=== PATIENT | male | born 1945 | race Caucasian/White ===

== ENCOUNTER → 2020-01-19 14:15 | Outpatient (BNV) | payer MEDICARE, MEDICAID, SELFPAY | PROVIDERS: PCP Hospitalist; Visit Provider Internal Medicine Medical Oncology | DX: C61 Malignant neoplasm of prostate (principal) | CPT/HCPCS: 99213; 99214 ==

== ENCOUNTER 2021-11-10 11:49 | Inpatient (IN) | payer MEDICARE, MEDICAID, SELFPAY ==
[2021-11-10] VITALS (7 sets, daily range): BP systolic 91–143; BP diastolic 58–85; PULSE 61–83; RESP 18–30; TEMP 35.3–36.5; O2SAT 92–100; BMI 27.2
--- NOTE | ~2021-11-10 | XR_ITS ---
EXAMINATION: XR ABDOMEN KUB CLINICAL INDICATION: Pre-MRI screening. COMPARISON: KUB done on 09/20/2012. TECHNIQUE: AP view of the abdomen. FINDINGS: No radiopaque metallic foreign body identified except for a Menard's catheter within the bladder. Nonspecific bowel gas pattern is noted. Abnormal appearance of the left lower hemidiaphragm, may represent pleural parenchymal disease. Follow-up chest radiograph may be considered for further full detail evaluation, if clinically XR/XR KUB appropriate. IMPRESSION: No radiopaque metallic foreign body except for Menard's catheter within the bladder.
--- NOTE | ~2021-11-10 | CT_ITS ---
EXAMINATION: CT HEAD WITHOUT CONTRAST CLINICAL INFORMATION: AMS. COMPARISON: CT brain 12/07/2017 TECHNIQUE: Contiguous axial imaging was performed from the skull base to vertex without intravenous administration of contrast. This CT examination was performed using dose optimization techniques as appropriate, variously including the following: *Automated exposure control *Adjustment of mA and/or kV according to patient size (this includes techniques or standardized protocols for targeted exams where dose is matched to indication/reason for exam; i.e. extremities or head) *Use of iterative reconstruction technique DLP: 1150 mGy-cm FINDINGS: There is no evidence of acute intracranial hemorrhage or territorial infarction. No abnormal mass effect or midline shift is seen. Li to white matter differentiation is well preserved. No extra-axial fluid collections are identified. The lateral ventricles are symmetrical but enlarged. The osseous structures and soft tissues are normal. The mastoid air cells and visualized portions of the paranasal sinuses are well aerated. CT/CT head/brain wo con IMPRESSION: No acute intracranial process seen. Age-related cerebral volume loss.
--- NOTE | ~2021-11-10 | XR_ITS ---
EXAMINATION: XR CHEST CLINICAL INFORMATION: Unresponsive patient. COMPARISON: Chest done on 07/15/2019. TECHNIQUE: Frontal view of the chest was obtained. FINDINGS: The patient is rotated. Apparent opacity is noted within the left hemithorax with asymmetric low lung volume. The right lung field is clear. The cardiac mediastinal silhouette outline is not well visualized, not evaluated. XR/XR chest 1V IMPRESSION: Asymmetric low lung volume within the left hemithorax with superimposed apparent opacity at left upper and lower hemithorax. Technically limited study. Repeat radiograph when patient is able is recommended.
--- NOTE | ~2021-11-10 | CT_ITS ---
EXAMINATION: CT chest wo con. CLINICAL INFORMATION: Reason for Exam AMS, SOB COMPARISON: No prior CT scan available for comparison. TECHNIQUE: Multidetector volumetric CT imaging of the chest was done. Axial MIP volume rendering provided. Sagittal and coronal reformatted images were obtained. This CT examination was performed using dose optimization techniques as appropriate, variously including the following: *Automated exposure control *Adjustment of mA and/or kV according to patient size (this includes techniques or standardized protocols for targeted exams where dose is matched to indication/reason for exam; i.e. extremities or head) *Use of iterative reconstruction technique CONTRAST: Noncontrasted study. DLP: 450 mGy-cm FINDINGS: SENIOR MAINFRAME DEVELOPER: LINES/TUBES: Mandarin Teacher reviewed, no lines. LUNGS: Lung parenchyma: There is subsegmental platelike atelectasis left upper lobe and lingula base. There is a prominence of the pulmonary vasculature, probably congestive failure. Mild interstitial opacification probably mild interstitial edema. Lung nodules/masses: No lung mass or suspicious spiculated nodules, there are few scattered tiny nonspecific lung nodular densities measuring up to 3 mm or less. AIRWAYS: Trachea and bronchi are normal. PLEURA: No pleural effusion or pneumothorax. MEDIASTINUM AND KARISSA: No mediastinal, hilar or axillary lymphadenopathy. No mediastinal mass. VESSELS: HEART AND PERICARDIUM: Aneurysmal dilatation of ascending aorta measure up to 4.3 cm. Descending aorta is normal in diameter measuring 2.9 cm. The heart is enlarged. No pericardial effusion. There are coronary calcifications. Pulmonary arteries are normal in size. LOWER NECK, AXILLA: The visualized thyroid gland is unremarkable. No axillary mass or adenopathy. VISUALIZED ABDOMEN: Unremarkable CHEST WALL AND BONES: There is a right breast retroareolar solid soft tissue 2.3 cm, this may require correlation with follow-up diagnostic breast imaging mammogram and ultrasound. The visualized bony thorax is within normal limits. CT/CT chest wo con IMPRESSION: *Cardiomegaly, pulmonary vascular congestion, congestive heart failure, mild interstitial opacifications concerning for mild interstitial edema. *Subsegmental platelike atelectasis left upper lobe and left lingula base. *Soft tissue density 2.3 cm right retroareolar region of the breast, this require further investigation with follow-up DIAGNOSTIC MAMMOGRAM AND ULTRASOUND. *No lung mass or suspicious spiculated nodules, there are few scattered tiny nonspecific lung nodular densities measuring up to 3 mm or less. If patient is high-risk consider correlation with follow-up CT in 12 months. *Coronary calcifications. *Aneurysmal dilatation of ascending aorta 4.3 cm. This also can be followed up by CT scan in 12 months. (Referring physician staff is being called, to be alerted of the above findings and recommendations.) DC Fleischner criteria followed.
--- NOTE | ~2021-11-10 | MR_ITS ---
EXAMINATION: MR BRAIN WITHOUT CONTRAST CLINICAL INFORMATION: Encephalopathy of unclear etiology. COMPARISON: Prior exams including head CT 11/10/2021 and 09/18/2016. TECHNIQUE: Multiplanar, multisequence imaging of the brain was performed without intravenous contrast. FINDINGS: There is no acute infarction, hemorrhage, mass, or extra-axial fluid collection. There is chronic encephalomalacia and gliosis within the right posterior inferior temporal lobe as seen on series 8 image 12/23 likely reflecting sequela of prior remote insult or infarct. Right lateral ventricle is asymmetrically enlarged but appears similar in configuration compared with prior exams. There is progressive brain parenchymal volume loss compared with prior studies. Mild nonspecific T2/FLAIR hyperintensity seen within the cerebral white matter, presumably chronic microangiopathy. The major arterial flow voids appear preserved at the skull base. There are bilateral lens replacements. MR/MR head/brain wo con IMPRESSION: No acute intracranial abnormality. Specifically, no evidence of acute infarction. No mass or hemorrhage is seen. Chronic encephalomalacia and gliosis noted in the right temporal lobe. Background changes of mild brain parenchymal volume loss with progression compared with prior studies.
--- NOTE | 2021-11-10 11:56 | ECG_ITS ---
Test Reason : unresponsive Blood Pressure : / mmHG Vent. Rate : 078 BPM Atrial Rate : 078 BPM P-R Int : 146 ms QRS Dur : 126 ms QT Int : 408 ms P-R-T Axes : 029 -45 -28 degrees QTc Int : 465 ms Normal sinus rhythm Left axis deviation Non-specific intra-ventricular conduction block Nonspecific T wave abnormality Abnormal ECG When compared with ECG of 08-DEC-2017 11:34, No significant change was found Referred By: Christiana Kearns Electronically Signed By:PHILLIP DENNISON
--- NOTE | 2021-11-10 11:58 | ED.AMS ---
HPI - Altered Mental Status General Chief Complaint: General Medical Stated Complaint: UNRESPONSIVE Time Seen by Provider: 11/10/21 11:56 Source: EMS Mode of arrival: EMS History of Present Illness HPI narrative: 76-year-old male brought in by EMS from [facility] who submits complaint of unresponsiveness but states that patient had eaten breakfast this morning, EMS noted that patient had pinpoint pupils and was noted to be on a codeine containing medication in so administered 4 mg of Narcan. They report patient is 95% oxygenation on baseline 3 L of nasal cannula. The facility denies any seizure-like activity. Patient is unable to provide additional information at this time. Related Data Home Medications Medication Instructions Recorded Confirmed acetaminophen 325 mg capsule 650 mg PO Q4H PRN Pain 01/19/20 06/19/21 amlodipine 5 mg tablet 5 mg PO DAILY 01/19/20 06/19/21 aripiprazole 5 mg tablet 5 mg PO DAILY 01/19/20 06/19/21 aspirin 81 mg tablet 81 mg PO DAILY 01/19/20 06/19/21 bicalutamide 50 mg tablet 50 mg PO DAILY 01/19/20 06/19/21 bisacodyl 5 mg rectal suppository 5 mg WV DAILY 01/19/20 06/19/21 codeine 10 mg-guaifenesin 100 mg/5 5 ml PO Q6H PRN Cough 01/19/20 06/19/21 mL oral liquid (Guaifenesin AC) divalproex 500 mg tablet,extended 1,000 mg PO DAILY 01/19/20 06/19/21 release 24 hr doxycycline hyclate 100 mg capsule 100 mg PO BID 01/19/20 06/19/21 furosemide 20 mg tablet (Lasix) 20 mg PO QAM 01/19/20 06/19/21 ibuprofen 200 mg tablet 200 mg PO Q6H PRN Pain 01/19/20 06/19/21 levalbuterol tartrate 45 2 puff inhalation Q4-6H PRN cough 01/19/20 06/19/21 mcg/actuation aerosol inhaler lorazepam 2 mg/mL injection 1 mg sublingual BEDTIME PRN 01/19/20 06/19/21 solution (Ativan) Seizure Activity omeprazole 20 mg capsule,delayed 20 mg PO DAILY 01/19/20 06/19/21 release oxycodone 5 mg capsule 5 mg PO BID PRN Pain 01/19/20 06/19/21 polyvinyl alcohol 1.4 % eye drops 1 drp ophthalmic (eye) DAILY 01/19/20 06/19/21 (Artificial Tears (polyvinyl alcohol)) sennosides 8.6 mg tablet (senna) 8.6 mg PO BEDTIME PRN Constipation 01/19/20 06/19/21 lactulose 10 gram/15 mL oral ml PO 11/10/21 solution metformin 500 mg tablet 1 tab PO BID 11/10/21 11/10/21 Allergies Allergy/AdvReac Type Severity Reaction Status Date / Time tuberculin, purified protein Allergy Unknown UNKNOWN Verified 06/19/21 15:02 deriva [Tuberculin,Purif.Prot.Deriv.] Review of Systems Review of Systems: Yes Unobtainable due to mental condition [facility] Past Medical History Source: nursing notes reviewed Medical History Cervicalgia COPD (chronic obstructive pulmonary disease) Dementia Dysphagia Epilepsy GERD (gastroesophageal reflux disease) Hypertension Muscle weakness (generalized) Schizo affective schizophrenia Spinal stenosis Social History Social History Household Members: Caregiver Housing: Other Housing Other:: [facility] Are you a primary adult daycare coordinator to a significant other at home: No Do you presently have visiting nurse or other home services: Yes Patient Tobacco Use Status: Never used Tobacco Second Hand Smoke Exposure: No Advance Directives: No Advance Directives Information Provided: No service: No Current occupational status: disabled Physical Exam ED Vital Signs: Vital Signs - 24 hr 11/10/21 11:57 11/10/21 12:41 11/10/21 13:11 Temperature 97.7 F Pulse Rate 83 77 74 Respiratory Rate 30 H 21 H 24 H Blood Pressure 93/59 L 91/58 L 111/65 Pulse Oximetry 96 92 100 Oxygen Delivery Method Nasal Cannula Nasal Cannula Nasal Cannula Oxygen Flow Rate 4 4 11/10/21 12:56 11/10/21 15:42 Temperature 95.5 F L Pulse Rate 73 66 Respiratory Rate 25 H 18 Blood Pressure 101/59 L 110/66 Pulse Oximetry 97 99 Oxygen Delivery Method Nasal Cannula Nasal Cannula Oxygen Flow Rate 4 4 BMI result Body Mass Index 27.2 VITAL SIGNS: Reviewed. GENERAL: Chronically ill, in no acute distress. HEAD: Normocephalic/atraumatic EYES: PERRLA, with pinpoint pupils EARS: Ext canals without abnormality NOSE: Nares patent bilateral OROPHARYNX: no oral lesions noted, posterior pharynx clear, dry mucosa NECK: Supple, no adenopathy LUNGS: Poor inspiratory effort, decreased breath sounds bibasilar. SpO2<97> on 4 L nasal cannula CARDIOVASCULAR: Regular rate and rhythm without noted murmurs, no JVD or lower extremity edema. ABDOMEN: Soft, non-tender, non-distended with bowel sounds. : Patient has adult brief in place MUSCULOSKELETAL: No tenderness, deformities, or effusions noted on gross inspection. EXTREMITIES: No cyanosis, clubbing or edema. SKIN: Inspection of the skin reveals no rashes NEUROLOGIC: GCS-7, no posturing noted Course Course Course Narrative: 76-year-old male with history and clinical presentation of unresponsiveness, no recent evaluations [place] [facility] but there are notes reviewed within the system from [facility] Onc regarding prostate cancer. In these notes, it is stated that ?failed trial of radiation therapy... Patient is wheelchair-bound, patient is incontinent of urine, patient currently on Lupron and next dose is November?. Review of all investigations suggestive of medication interactions, patient responded well to Narcan and has otherwise been hemodynamically stable, there were new findings of breast mass which is likely metastatic given underlying prostate cancer. Serial troponins are flat and he was empirically treated for possible aspiration pneumonia although there is no evidence of this presently. Evidence of pulmonary congestion and suspect that this is noncardiac in nature and patient is being treated with Lasix. I discussed this case with the inpatient hospitalist who accepts admission. Reevaluation(s) Reevaluation #1: I spoke with Bethanie Blackmon the court appointed guardian who states she is unsure of the goals of care, lbut jayjay her knowledge the MOLST stands given that the prior guardian, whom she inherited the patient from due to halfway, would have had to go back to court and she knows that had not happened. Time: 12:41 Reevaluation #2: Patient is more easily arousable, GCS-11. Time: 13:12 MDM - Altered Mental Status Lab Data Result diagrams: 11/10/21 12:27 11/10/21 12:27 Labs: Lab Results 11/10/21 11/10/21 11/10/21 Range/Units 12:05 12:27 12:27 WBC 4.4 L (4.8-10.8) X10*3/uL RBC 4.56 L (4.60-5.80) X10*6/uL Hgb 13.7 L (14.0-18.0) g/dl Hct 40.9 L (42.0-52.0) % MCV 89.7 (80.0-98.0) fL MCH 30.0 (27.0-33.0) pg MCHC 33.5 (31.0-36.0) g/dl RDW 15.0 (11.0-16.0) % Plt Count 194 (160-400) X10*3/uL MPV 8.6 L (9.4-12.4) fL Immature Gran % (Auto) 0.2 (0.0-0.4) % Neut % (Auto) 67.5 (45-73) % Lymph % (Auto) 19.0 L (20-40) % [place] % (Auto) 11.5 H (2-11) % Eos % (Auto) 1.6 (0-4) % Baso % (Auto) 0.2 (0-2) % Lymph # (Auto) 0.8 L (1.2-4.9) X10*3/uL [place] # (Auto) 0.5 (0.1-1.2) X10*3/uL Eos # (Auto) 0.1 (0.0-0.4) X10*3/uL Baso # (Auto) 0.0 (0.0-0.2) X10*3/uL Abs Immat Gran (auto) 0.01 (0.00-0.03) X10*3/uL Absolute Neuts (auto) 2.9 (2.0-8.3) x10*3/uL Absolute Nucleated RBC 0.000 (0.0-0.012) X10*3/uL Nucleated RBC % (auto) 0.0 (0.0-0.2) /100WBC PT 11.2 (10.0-13.1) SEC INR 1.0 (0.9-1.1) VBG pH (7.32-7.43) VBG pCO2 mmHg VBG pO2 mmHg VBG HCO3 (22-26) mmol/L VBG O2 Saturation % VBG Base Excess mmol/L Sodium (135-145) mmol/L Potassium (3.3-5.1) mmol/L Chloride (96-108) mmol/L Carbon Dioxide (22-29) mmol/L Anion Gap (12-20) BUN (9-16) mg/dL Creatinine (0.5-1.4) mg/dL Estim Creat Clear Calc Estimated GFR POC Glucose 110 (60-115) mg/dL Random Glucose (60-115) mg/dL Lactic Acid (0.5-2.0) mmol/L Calcium (8.4-10.2) mg/dL Total Bilirubin (0.0-1.0) mg/dL AST (5-37) U/L ALT (0-40) U/L Alkaline Phosphatase (39-117) U/L Troponin I High Sens (<3.5-35.0) ng/L B-Natriuretic Peptide (<100) pg/mL Total Protein (6.5-8.0) g/dL Albumin (3.5-5.0) g/dL Urine Color Urine Appearance Urine pH (5.0-8.0) Ur Specific [place] (1.005-1.025) Urine Protein (NEG-TRACE) MG/DL Urine Glucose (UA) (NEG) MG/DL Urine Ketones (NEG) MG/DL Urine Blood (NEG) Urine Nitrite (NEG) Ur Leukocyte Esterase (NEG) COVID-19 (COLIN) (Negative) COVID-19 Clin Com 11/10/21 11/10/21 11/10/21 Range/Units 12:27 12:27 12:27 WBC (4.8-10.8) X10*3/uL RBC (4.60-5.80) X10*6/uL Hgb (14.0-18.0) g/dl Hct (42.0-52.0) % MCV (80.0-98.0) fL MCH (27.0-33.0) pg MCHC (31.0-36.0) g/dl RDW (11.0-16.0) % Plt Count (160-400) X10*3/uL MPV (9.4-12.4) fL Immature Gran % (Auto) (0.0-0.4) % Neut % (Auto) (45-73) % Lymph % (Auto) (20-40) % [place] % (Auto) (2-11) % Eos % (Auto) (0-4) % Baso % (Auto) (0-2) % Lymph # (Auto) (1.2-4.9) X10*3/uL [place] # (Auto) (0.1-1.2) X10*3/uL Eos # (Auto) (0.0-0.4) X10*3/uL Baso # (Auto) (0.0-0.2) X10*3/uL Abs Immat Gran (auto) (0.00-0.03) X10*3/uL Absolute Neuts (auto) (2.0-8.3) x10*3/uL Absolute Nucleated RBC (0.0-0.012) X10*3/uL Nucleated RBC % (auto) (0.0-0.2) /100WBC PT (10.0-13.1) SEC INR (0.9-1.1) VBG pH (7.32-7.43) VBG pCO2 mmHg VBG pO2 mmHg VBG HCO3 (22-26) mmol/L VBG O2 Saturation % VBG Base Excess mmol/L Sodium 136 (135-145) mmol/L Potassium 3.9 (3.3-5.1) mmol/L Chloride 93 L (96-108) mmol/L Carbon Dioxide 31 H (22-29) mmol/L Anion Gap 16 (12-20) BUN 11 (9-16) mg/dL Creatinine 0.69 (0.5-1.4) mg/dL Estim Creat Clear Calc 99.9 Estimated GFR > 60 POC Glucose (60-115) mg/dL Random Glucose 114 (60-115) mg/dL Lactic Acid 1.9 (0.5-2.0) mmol/L Calcium 9.0 D (8.4-10.2) mg/dL Total Bilirubin 0.3 (0.0-1.0) mg/dL AST 11 (5-37) U/L ALT 18 (0-40) U/L Alkaline Phosphatase 69 D (39-117) U/L Troponin I High Sens 14.2 (<3.5-35.0) ng/L B-Natriuretic Peptide 87 (<100) pg/mL Total Protein 6.2 L (6.5-8.0) g/dL Albumin 3.8 (3.5-5.0) g/dL Urine Color Urine Appearance Urine pH (5.0-8.0) Ur Specific [place] (1.005-1.025) Urine Protein (NEG-TRACE) MG/DL Urine Glucose (UA) (NEG) MG/DL Urine Ketones (NEG) MG/DL Urine Blood (NEG) Urine Nitrite (NEG) Ur Leukocyte Esterase (NEG) COVID-19 (COLIN) (Negative) COVID-19 Clin Com 11/10/21 11/10/21 11/10/21 Range/Units 12:27 12:28 12:29 WBC (4.8-10.8) X10*3/uL RBC (4.60-5.80) X10*6/uL Hgb (14.0-18.0) g/dl Hct (42.0-52.0) % MCV (80.0-98.0) fL MCH (27.0-33.0) pg MCHC (31.0-36.0) g/dl RDW (11.0-16.0) % Plt Count (160-400) X10*3/uL MPV (9.4-12.4) fL Immature Gran % (Auto) (0.0-0.4) % Neut % (Auto) (45-73) % Lymph % (Auto) (20-40) % [place] % (Auto) (2-11) % Eos % (Auto) (0-4) % Baso % (Auto) (0-2) % Lymph # (Auto) (1.2-4.9) X10*3/uL [place] # (Auto) (0.1-1.2) X10*3/uL Eos # (Auto) (0.0-0.4) X10*3/uL Baso # (Auto) (0.0-0.2) X10*3/uL Abs Immat Gran (auto) (0.00-0.03) X10*3/uL Absolute Neuts (auto) (2.0-8.3) x10*3/uL Absolute Nucleated RBC (0.0-0.012) X10*3/uL Nucleated RBC % (auto) (0.0-0.2) /100WBC PT (10.0-13.1) SEC INR (0.9-1.1) VBG pH (7.32-7.43) VBG pCO2 mmHg VBG pO2 mmHg VBG HCO3 (22-26) mmol/L VBG O2 Saturation % VBG Base Excess mmol/L Sodium (135-145) mmol/L Potassium (3.3-5.1) mmol/L Chloride (96-108) mmol/L Carbon Dioxide (22-29) mmol/L Anion Gap (12-20) BUN (9-16) mg/dL Creatinine (0.5-1.4) mg/dL Estim Creat Clear Calc Estimated GFR POC Glucose (60-115) mg/dL Random Glucose (60-115) mg/dL Lactic Acid (0.5-2.0) mmol/L Calcium (8.4-10.2) mg/dL Total Bilirubin (0.0-1.0) mg/dL AST (5-37) U/L ALT (0-40) U/L Alkaline Phosphatase (39-117) U/L Troponin I High Sens Cancelled (<3.5-35.0) ng/L B-Natriuretic Peptide (<100) pg/mL Total Protein (6.5-8.0) g/dL Albumin (3.5-5.0) g/dL Urine Color YELLOW Urine Appearance HAZY Urine pH 6.0 (5.0-8.0) Ur Specific [place] 1.020 (1.005-1.025) Urine Protein NEG (NEG-TRACE) MG/DL Urine Glucose (UA) NEG (NEG) MG/DL Urine Ketones 15 (NEG) MG/DL Urine Blood NEG (NEG) Urine Nitrite NEG (NEG) Ur Leukocyte Esterase NEG (NEG) COVID-19 (COLIN) Negative (Negative) COVID-19 Clin Com See Note 11/10/21 11/10/21 Range/Units 12:36 15:44 WBC (4.8-10.8) X10*3/uL RBC (4.60-5.80) X10*6/uL Hgb (14.0-18.0) g/dl Hct (42.0-52.0) % MCV (80.0-98.0) fL MCH (27.0-33.0) pg MCHC (31.0-36.0) g/dl RDW (11.0-16.0) % Plt Count (160-400) X10*3/uL MPV (9.4-12.4) fL Immature Gran % (Auto) (0.0-0.4) % Neut % (Auto) (45-73) % Lymph % (Auto) (20-40) % [place] % (Auto) (2-11) % Eos % (Auto) (0-4) % Baso % (Auto) (0-2) % Lymph # (Auto) (1.2-4.9) X10*3/uL [place] # (Auto) (0.1-1.2) X10*3/uL Eos # (Auto) (0.0-0.4) X10*3/uL Baso # (Auto) (0.0-0.2) X10*3/uL Abs Immat Gran (auto) (0.00-0.03) X10*3/uL Absolute Neuts (auto) (2.0-8.3) x10*3/uL Absolute Nucleated RBC (0.0-0.012) X10*3/uL Nucleated RBC % (auto) (0.0-0.2) /100WBC PT (10.0-13.1) SEC INR (0.9-1.1) VBG pH 7.38 (7.32-7.43) VBG pCO2 50 mmHg VBG pO2 74 mmHg VBG HCO3 30 H (22-26) mmol/L VBG O2 Saturation 93.0 % VBG Base Excess 4.0 mmol/L Sodium (135-145) mmol/L Potassium (3.3-5.1) mmol/L Chloride (96-108) mmol/L Carbon Dioxide (22-29) mmol/L Anion Gap (12-20) BUN (9-16) mg/dL Creatinine (0.5-1.4) mg/dL Estim Creat Clear Calc Estimated GFR POC Glucose (60-115) mg/dL Random Glucose (60-115) mg/dL Lactic Acid (0.5-2.0) mmol/L Calcium (8.4-10.2) mg/dL Total Bilirubin (0.0-1.0) mg/dL AST (5-37) U/L ALT (0-40) U/L Alkaline Phosphatase (39-117) U/L Troponin I High Sens 12.3 (<3.5-35.0) ng/L B-Natriuretic Peptide (<100) pg/mL Total Protein (6.5-8.0) g/dL Albumin (3.5-5.0) g/dL Urine Color Urine Appearance Urine pH (5.0-8.0) Ur Specific [place] (1.005-1.025) Urine Protein (NEG-TRACE) MG/DL Urine Glucose (UA) (NEG) MG/DL Urine Ketones (NEG) MG/DL Urine Blood (NEG) Urine Nitrite (NEG) Ur Leukocyte Esterase (NEG) COVID-19 (COLIN) (Negative) COVID-19 Clin Com ECG Data ECG #1: Attestation: I personally reviewed and interpreted this ECG as follows: Prior ECG tracings: available for review Interpretation: Sinus rhythm, HR-78, no STEMI, noted T-wave inversions in V5/V6 although deepened are similar to prior, WV/QTC are within normal limits. Critical Care Time Critical Care Time Critical Care Time: Yes Total Critical Care Time: 45 Attestation: I personally attest to this time spent taking care of the patient. Discharge Plan Discharge Clinical Impression: Altered mental status, CHF (congestive heart failure), Hypertension Patient Disposition: Admitted As Inpatient
[2021-11-10] MEDS: Naloxone HCl Nasal TAKE HOME 4 MG SPRAY NOSTRILALT (12:13)
[2021-11-10] MEDS: 0.9 % Sodium Chloride 1,000 ML 999 ML IV ×2 (12:15→15:38)
--- NOTE | 2021-11-10 12:36 | PC.NURSE ---
Addendum entered by Susana Pickens 11/10/21 12:49: Addendum: Requested updated MOLST, Code Status paperwork from [facility]. Advanced Directive from 2007 with patient's paperwork from [facility], which states Full Code at this time. Paperwork to be faxed to ED. speaking with patient's legal circulation sales representative: Bethanie Blackmon. Original Note: Alternate contact, per [facility] staff member. Bethanie Blackmon [phone]. Spoke with nurse at [facility]. Attempted to contact [employer] (listed guardian on file), no answer.
[2021-11-10 12:41] LABS: VBG HCO3 30 mmol/L (22-26); VBG pCO2 50 mmHg; VBG pH 7.38 (7.32-7.43); VBG pO2 74 mmHg
[2021-11-10 12:41] LABS: Venous Blood Gas Refer to POC result
[2021-11-10 12:42] LABS: Glucose, Whole Blood 110 mg/dL (60-115)
[2021-11-10 12:44] LABS: MANUAL DIFF FLAG NO
[2021-11-10 12:54] LABS: Appearance Urine HAZY; Color Urine YELLOW; Glucose Urine UA NEG (NEG); Leukocyte Esterase Urine NEG (NEG); Nitrite Urine NEG (NEG); Urine Blood NEG (NEG); Urine Ketones 15 MG/DL (NEG); Urine Protein NEG (NEG-TRACE)
[2021-11-10 12:54] LABS: Basophils Percent Auto 0.2 % (0-2); Eosinophils Absolute Auto 0.1 X10*3/uL (0.0-0.4); Eosinophils Percent Auto 1.6 % (0-4); Hematocrit 40.9 % (42.0-52.0); Hemoglobin 13.7 g/dl (14.0-18.0); Imm Gran Abs Auto 0.01 X10*3/uL (0.00-0.03); Imm Gran Pct Auto 0.2 % (0.0-0.4); Lymphocytes Absolute Auto 0.8 X10*3/uL (1.2-4.9); Mean Corpuscular HGB Conc 33.5 g/dl (31.0-36.0); Mean Corpuscular Volume 89.7 fL (80.0-98.0); Mean Platelet Volume 8.6 fL (9.4-12.4); Monocytes Absolute Auto 0.5 X10*3/uL (0.1-1.2); Monocytes Percent Auto 11.5 % (2-11); Neutrophils Absolute Auto 2.9 x10*3/uL (2.0-8.3); Neutrophils Percent Auto 67.5 % (45-73); Platelet Count 194 X10*3/uL (160-400); Red Blood Count 4.56 X10*6/uL (4.60-5.80); White Blood Count 4.4 X10*3/uL (4.8-10.8)
[2021-11-10 13:00] LABS: Prothrombin Time 11.2 SEC (10.0-13.1)
[2021-11-10 13:05] LABS: Lactic Acid 1.9 mmol/L (0.5-2.0)
[2021-11-10 13:08] LABS: Alanine Aminotransferase 18 U/L (0-40); Albumin Level 3.8 g/dL (3.5-5.0); Alkaline Phosphatase 69 U/L (39-117); Anion Gap 16 (12-20); Aspartate Amino Transferase 11 U/L (5-37); Bilirubin Total 0.3 mg/dL (0.0-1.0); Blood Urea Nitrogen 11 mg/dL (9-16); Carbon Dioxide 31 mmol/L (22-29); Chloride 93 mmol/L (96-108); Creatinine Clr Calc Pharmacy 99.9; Estimated Glomerular Filt Rate > 60; Glucose Random 114 mg/dL (60-115); Potassium 3.9 mmol/L (3.3-5.1); Sodium 136 mmol/L (135-145); Total Protein 6.2 g/dL (6.5-8.0)
[2021-11-10 13:09] LABS: COVID-19 Test Negative (Negative); IDNOW Serial# 16C4AD1C
[2021-11-10 13:13] LABS: B Type Natriuretic Peptide 87 pg/mL (<100); Troponin-I High Sensitivity 14.2 ng/L (<3.5-35.0)
[2021-11-10] MEDS: Piperacillin Sodium/Tazobactam 3.375 GM in 0.9 % Sodium Chloride 50 ML IV ×3 (13:19→23:41)
[2021-11-10] MEDS: Furosemide 100 MG/10 ML VIAL 60 MG IVPUSH (15:54)
[2021-11-10 16:08] LABS: Troponin-I High Sensitivity 12.3 ng/L (<3.5-35.0)
[2021-11-10] MEDS: Naloxone HCl 2 MG/2 ML SYRINGE IVPUSH ×2 (16:50→19:24)
--- NOTE | 2021-11-10 18:33 | PM.IMHP ---
History of Present Illness Date of Service: 11/10/21 Chief Complaint: unresponsiveness 76-year-old male with past medical history of COPD, epilepsy , history of prostate cancer-failed radiation therapy on Lupron and multiple comorbidities-came to the hospital because of found unresponsiveness in longterm. As per ED staff as well as goal the longterm also: Is seems like patient was in usual state of health initially this morning-he is on the wheelchair most of the time, talks only a little as per the longterm, he ate this morning also took his med morning medications-afterwards he sent to his room and later own found to have unresponsive. '' in the morning patient was given Tylenol for pain? Body pain-unclear'' Patient was subsequently sent to the ED: As per the ED patient was possibly taking? Codeine in the longterm, also found to have pain point people and was given Narcan x3. In the facility-denies any seizure-like activity. As per previous hematology/oncology note patient is on lactulose because of elevated in ammonia levels. Even after receiving Narcan x3: Patient seems still not much responsive, responsive only to deep tactile stimuli and withdraws extremity to painful stimuli., patient opens eyes with deep tactile stimuli and try to mumble. Unable to obtain: History due to patient unresponsiveness. Lab imaging EKG reviewed: CBC: Mild leukopenia otherwise unremarkable COVID negative BMP seems fine, LFTs also normal. Ammonia level ordered. VBG noted: PH seems fine, CO2 is slightly elevated in [address]:?right breast retroareolar solid soft Cardiomegaly, pulmonary vascular congestion, congestive heart failure, mild interstitial opacifications concerning for mild interstitial edema. ? *Subsegmental platelike atelectasis left upper lobe and left lingula base. ? *Soft tissue density 2.3 cm right retroareolar region of the breast, this require further investigation with follow-up DIAGNOSTIC MAMMOGRAM AND ULTRASOUND. Head CT: No intracranial process age related cerebral volume loss. In ED: Patient received 3 doses of Narcan, received Zosyn, initially received fluid also afterwards given Lasix when the CT scan chest shows some congestion. Admission was requested for possible ams . Admission was given for altered mental status, possible aspiration pneumonia. Review of Systems Review of Systems: As above. Yes all other systems are reviewed and are negative [facility] Medical History Cervicalgia COPD (chronic obstructive pulmonary disease) Dementia Dysphagia Epilepsy GERD (gastroesophageal reflux disease) Hypertension Muscle weakness (generalized) Schizo affective schizophrenia Spinal stenosis Pertinent family history: Cannot be obtained since patient is ams. Social History Household Members: Caregiver Housing: Other Housing Other:: [facility] Are you a primary hospice care transitions coordinator to a significant other at home: No Do you presently have visiting nurse or other home services: Yes Patient Tobacco Use Status: Never used Tobacco Second Hand Smoke Exposure: No Advance Directives: No Advance Directives Information Provided: No service: No Current occupational status: disabled Meds Allergies Allergy/AdvReac Type Severity Reaction Status Date / Time tuberculin, purified protein Allergy Unknown UNKNOWN Verified 06/19/21 15:02 deriva [Tuberculin,Purif.Prot.Deriv.] Active Medications: Current Medications Albuterol/Ipratropium (Albuterol/Iprat 2.5/0.5mg 3 Ml Ampul.Neb) 3 ml INHALE RQ4H WHILE AWAKE [facility]LY [facility], 1928–1983 Heparin Sodium (Porcine) (Heparin Sodium,Porcine 5,000 Unit/Ml Vial) 5,000 unit SUBCUT Q8H FOR[facility], 1928–1983 Piperacillin Sod/Tazobactam (Sod 3.375 gm/ Sodium Chloride) 50 mls @ 100 mls/hr IV Q6H [facility], [facility]–1983 Lactated Ringer's (Lr) 1,000 mls @ 60 mls/hr IVCONT .[id number] FOR[facility], [facility]–1983 Pantoprazole Sodium (Pantoprazole Sodium 40 Mg/10 Ml Vial) 40 mg IVPUSH DAILY@0630 FOR[facility], [facility]–1983 Pharmacy Consult (Consult Rx Perform Med Rec) 1 each MISCELLANE ONCE PRN PRN Reason: Consult order Sodium Chloride (0.9 % Sodium Chloride Flush 3 Ml Syringe) 3 ml IVFLUSH QSHIFT FOR[facility], [facility]–1983 Home Medications Medication Instructions Recorded Confirmed Last Taken Type acetaminophen 325 mg capsule 650 mg PO Q4H PRN Pain 01/19/20 11/10/21 Unknown History amlodipine 5 mg tablet 5 mg PO DAILY 01/19/20 11/10/21 Unknown History aripiprazole 5 mg tablet 5 mg PO DAILY 01/19/20 11/10/21 Unknown History aspirin 81 mg tablet 81 mg PO DAILY 01/19/20 11/10/21 Unknown History bicalutamide 50 mg tablet 50 mg PO DAILY 01/19/20 11/10/21 Unknown History bisacodyl 5 mg rectal suppository 10 mg NE DAILY 01/19/20 11/10/21 Unknown History divalproex 500 mg tablet,extended 1,000 mg PO DAILY 01/19/20 11/10/21 Unknown History release 24 hr furosemide 20 mg tablet (Lasix) 20 mg PO QAM 01/19/20 11/10/21 Unknown History ibuprofen 200 mg tablet 200 mg PO Q6H PRN Pain 01/19/20 11/10/21 Unknown History levalbuterol tartrate 45 2 puff inhalation Q4-6H PRN cough 01/19/20 11/10/21 Unknown History mcg/actuation aerosol inhaler lorazepam 2 mg/mL injection 1 mg sublingual BEDTIME PRN 01/19/20 11/10/21 Unknown History solution (Ativan) Seizure Activity omeprazole 20 mg capsule,delayed 20 mg PO DAILY 01/19/20 11/10/21 Unknown History release polyvinyl alcohol 1.4 % eye drops 1 drp ophthalmic (eye) DAILY 01/19/20 11/10/21 Unknown History (Artificial Tears (polyvinyl alcohol)) sennosides 8.6 mg tablet (senna) 8.6 mg PO BEDTIME PRN Constipation 01/19/20 11/10/21 Unknown History lactulose 10 gram/15 mL oral 30 ml PO DAILY 11/10/21 11/10/21 Unknown History solution metformin 500 mg tablet 1 tab PO BID 11/10/21 11/10/21 Unknown History Physical Exam Vital Signs and Narrative: Vital Signs: Last Vital Signs Temp 95.5 F L 11/10/21 15:42 Pulse 66 11/10/21 15:42 Resp 18 11/10/21 15:42 BP 110/66 11/10/21 15:42 Pulse Ox 99 11/10/21 15:42 O2 Del Method 11/10/21 15:42 O2 Flow Rate 4 11/10/21 15:42 Oxygen Flow Rate 3 11/10/21 11:57 BMI result Body Mass Index 27.2 Appearance: Responsive deep tactile stimuli. Eyes: Pupils pinpoint.? ENT: Pharynx normal.? Moist mucous membranes. cvs: rrr, [id number] . res: Air entry slightly diminished at bases few scattered wheeze . abd: no rebound or guarding , does not have any grimace even with deep palpation., bs present. ext pulses present , no cyanosis . neuro: axo3 , nonfocal. Results Labs CBC and Chem 7: 11/10/21 12:27 11/10/21 12:27 Labs: Laboratory Results - last 24 hr 11/10/21 11/10/21 11/10/21 12:05 12:27 12:27 MCV 89.7 MCH 30.0 MCHC 33.5 RDW 15.0 Plt Count 194 MPV 8.6 L Immature Gran % (Auto) 0.2 Neut % (Auto) 67.5 Lymph % (Auto) 19.0 L [place] % (Auto) 11.5 H Eos % (Auto) 1.6 Baso % (Auto) 0.2 Lymph # (Auto) 0.8 L [place] # (Auto) 0.5 Eos # (Auto) 0.1 Baso # (Auto) 0.0 Abs Immat Gran (auto) 0.01 Absolute Neuts (auto) 2.9 Absolute Nucleated RBC 0.000 Nucleated RBC % (auto) 0.0 PT 11.2 INR 1.0 VBG pH VBG pCO2 VBG pO2 VBG HCO3 VBG O2 Saturation VBG Base Excess Anion Gap Estim Creat Clear Calc Estimated GFR POC Glucose 110 Random Glucose Lactic Acid Calcium Total Bilirubin AST ALT Alkaline Phosphatase B-Natriuretic Peptide Total Protein Albumin Urine Color Urine Appearance Urine pH Ur Specific [place] Urine Protein Urine Glucose (UA) Urine Ketones Urine Blood Urine Nitrite Ur Leukocyte Esterase COVID-19 ([facility]) COVID-19 Clin Com 11/10/21 11/10/21 11/10/21 12:27 12:27 12:27 MCV MCH MCHC RDW Plt Count MPV Immature Gran % (Auto) Neut % (Auto) Lymph % (Auto) [place] % (Auto) Eos % (Auto) Baso % (Auto) Lymph # (Auto) [place] # (Auto) Eos # (Auto) Baso # (Auto) Abs Immat Gran (auto) Absolute Neuts (auto) Absolute Nucleated RBC Nucleated RBC % (auto) PT INR VBG pH VBG pCO2 VBG pO2 VBG HCO3 VBG O2 Saturation VBG Base Excess Anion Gap 16 Estim Creat Clear Calc 99.9 Estimated GFR > 60 POC Glucose Random Glucose 114 Lactic Acid 1.9 Calcium 9.0 D Total Bilirubin 0.3 AST 11 ALT 18 Alkaline Phosphatase 69 D B-Natriuretic Peptide 87 Total Protein 6.2 L Albumin 3.8 Urine Color Urine Appearance Urine pH Ur Specific [place] Urine Protein Urine Glucose (UA) Urine Ketones Urine Blood Urine Nitrite Ur Leukocyte Esterase COVID-19 ([facility]) COVID-19 Clin Com 11/10/21 11/10/21 11/10/21 12:28 12:29 12:36 MCV MCH MCHC RDW Plt Count MPV Immature Gran % (Auto) Neut % (Auto) Lymph % (Auto) [place] % (Auto) Eos % (Auto) Baso % (Auto) Lymph # (Auto) [place] # (Auto) Eos # (Auto) Baso # (Auto) Abs Immat Gran (auto) Absolute Neuts (auto) Absolute Nucleated RBC Nucleated RBC % (auto) PT INR VBG pH 7.38 VBG pCO2 50 VBG pO2 74 VBG HCO3 30 H VBG O2 Saturation 93.0 VBG Base Excess 4.0 Anion Gap Estim Creat Clear Calc Estimated GFR POC Glucose Random Glucose Lactic Acid Calcium Total Bilirubin AST ALT Alkaline Phosphatase B-Natriuretic Peptide Total Protein Albumin Urine Color YELLOW Urine Appearance HAZY Urine pH 6.0 Ur Specific [place] 1.020 Urine Protein NEG Urine Glucose (UA) NEG Urine Ketones 15 Urine Blood NEG Urine Nitrite NEG Ur Leukocyte Esterase NEG COVID-19 ([facility]) Negative COVID-19 Clin Com See Note Imaging Radiologist's Impressions: Impressions Chest X-Ray 11/10/21 12:59 IMPRESSION: Asymmetric low lung volume within the left hemithorax with superimposed apparent opacity at left upper and lower hemithorax. Technically limited study. Repeat radiograph when patient is able is recommended. Chest CT 11/10/21 14:06 IMPRESSION: *Cardiomegaly, pulmonary vascular congestion, congestive heart failure, mild interstitial opacifications concerning for mild interstitial edema. *Subsegmental platelike atelectasis left upper lobe and left lingula base. *Soft tissue density 2.3 cm right retroareolar region of the breast, this require further investigation with follow-up DIAGNOSTIC MAMMOGRAM AND ULTRASOUND. *No lung mass or suspicious spiculated nodules, there are few scattered tiny nonspecific lung nodular densities measuring up to 3 mm or less. If patient is high-risk consider correlation with follow-up CT in 12 months. *Coronary calcifications. *Aneurysmal dilatation of ascending aorta 4.3 cm. This also can be followed up by CT scan in 12 months. (Referring physician staff is being called, to be alerted of the above findings and recommendations.) RENÉE Fleischner criteria followed. Head CT 11/10/21 14:08 IMPRESSION: No acute intracranial process seen. Age-related cerebral volume loss. Assessment and Plan (1) Prostate cancer: Status: Acute (2) Altered mental status: Status: Acute Plan 76-year-old male with past medical history of COPD, epilepsy , history of prostate cancer-failed radiation therapy on Lupron-came to the hospital : ams /pinpoint pupils. 1. Possible Toxic metabolic encephalopathy Has pinpoint pupil CT head negative, CT chest is also mostly fine except some congestion. Given Narcan x3, another Narcan dose ordered ? Patient's longterm medication list shows oxycodone also. Patient is more responsive to deep tactile stimuli now, sats are improving Started on hydration, NPO, neuro checks. fs runing 100-110 Ammonia level, urine drug screen, repeat VBG Currently vitals are stable, and sats are also better 99% on 4 L. If ammonia levels elevated -start rectal lactulose. Keep patient NPO until says patient get more awake and get swallow evaluation. 2. Possible aspiration pneumonia: Started on IV antibiotics, blood cultures sent by ED. 3. COPD possible mild exacerbation: Air entry diminished, has few wheezing Added nebs and steroids 4. History of seizure: Depakote switched to IV. 5. CT chest shows chest congestion: Troponin and EKG fine bnp normal , no leg edema Bedside echo done by ICU : EF is around 45-50%, IVF easily compressable Less likely cardiogenic edema Hold Lasix for now Patient was given Lasix initially by ED-so far almost 1 L of urine in the urine bag. 6. unclear why patient is on metformin? : Will check fingersticks So far fingersticks are running 100-110 range Gentle hydration Hemoglobin A1c in the morning Briefly discussed with ICU at bedside: Toxic metabolic encephalopathy unclear etiology possible use of opioid as patient has pinpoint pupils-but with supportive management patient sats and patient vitals are more stable also currently can be monitored on the floor. DVT prophylaxis with subQ heparin, GI prophylaxis with PPIs. As per the ED discussion with the guardian of the patient-so far patient is full code. Hold p.o. medications for now. Assessment and plan coordination time spent 70 minute, considering multiple issues including toxic metabolic encephalopathy, aspiration pneumonia: Patient may benefit from 2 midnight stays. Quality Stroke Does the patient have a stroke diagnosis?: No VTE Prior VTE?: No VTE Risk Level:: Medical - moderate - high VTE Device Contraindication: N/A - Device Ordered VTE Drug Contraindication: N/A - Med Ordered
[2021-11-10] MEDS: Heparin Sodium,Porcine 5,000 UNIT/ML VIAL 5000 UNIT SUBCUT (19:02)
[2021-11-10] MEDS: Lactated Ringers 1,000 ML 60 ML IVCONT (19:03)
[2021-11-10 19:40] LABS: Venous Blood Gas Refer to POC result
[2021-11-10 19:42] LABS: VBG Base Excess 3.6 mmol/L; VBG HCO3 26 mmol/L (22-26); VBG pCO2 36 mmHg; VBG pH 7.48 (7.32-7.43); VBG pO2 132 mmHg
[2021-11-10 20:00] LABS: Ammonia 59 umol/L (13-55)
[2021-11-10 20:04] LABS: Amphetamine Screen Urine Not Detected (Not Detect); Barbiturates, Urine Not Detected (Not Detect); Benzodiazepines Screen Urine Not Detected (Not Detect); Cannabinoid Screen Urine Not Detected (Not Detect); Cocaine Screen Urine Not Detected (Not Detect); Fentanyl, urine Not Detected (Not Detect); Opiate Screen Urine Not Detected (Not Detect); Phencyclidine Screen Urine Not Detected (Not Detect)
[2021-11-10 20:12] LABS: Acetaminophen LAB 1 mcg/mL (<30); Salicylate < 5.0 mg/dL (15-30)
[2021-11-10] MEDS: methylPREDNISolone Sod Succ 40 MG/ML VIAL IVPUSH (21:24)
[2021-11-10 22:20] LABS: Glucose, Whole Blood 101 mg/dL (60-115)
[2021-11-10] MEDS: 0.9 % Sodium Chloride Flush 3 ML SYRINGE IVFLUSH (23:42)
[2021-11-11] VITALS (9 sets, daily range): BP systolic 112–139; BP diastolic 65–81; PULSE 59–81; RESP 17–24; TEMP 35.5–36.6; O2SAT 94–100
[2021-11-11] MEDS: Heparin Sodium,Porcine 5,000 UNIT/ML VIAL 5000 UNIT SUBCUT ×3 (03:15→18:38)
[2021-11-11] MEDS: Pantoprazole Sodium 40 MG/10 ML VIAL IVPUSH (06:14)
[2021-11-11] MEDS: Piperacillin Sodium/Tazobactam 3.375 GM in 0.9 % Sodium Chloride 50 ML IV ×3 (06:18→20:14)
[2021-11-11 07:35] LABS: Hematocrit 42.1 % (42.0-52.0); Imm Gran Abs Auto 0.02 X10*3/uL (0.00-0.03); Imm Gran Pct Auto 0.4 % (0.0-0.4); Lymphocytes Absolute Auto 0.4 X10*3/uL (1.2-4.9); MANUAL DIFF FLAG SCAN; Mean Corpuscular HGB Conc 33.3 g/dl (31.0-36.0); Mean Corpuscular Hemoglobin 30.5 pg (27.0-33.0); Mean Corpuscular Volume 91.7 fL (80.0-98.0); Mean Platelet Volume 9.1 fL (9.4-12.4); Monocytes Absolute Auto 0.1 X10*3/uL (0.1-1.2); Monocytes Percent Auto 1.7 % (2-11); Neutrophils Absolute Auto 4.7 x10*3/uL (2.0-8.3); Neutrophils Percent Auto 90.9 % (45-73); Platelet Count 187 X10*3/uL (160-400); Red Blood Count 4.59 X10*6/uL (4.60-5.80); Red Cell Distribution Width 15.1 % (11.0-16.0); SCAN SMEAR FLAG 1; White Blood Count 5.2 X10*3/uL (4.8-10.8)
[2021-11-11] MEDS: Albuterol/Iprat 2.5/0.5MG 3 ML AMPUL.NEB INHALE ×3 (07:36→20:17)
[2021-11-11 07:46] LABS: Glucose, Whole Blood 123 mg/dL (60-115)
[2021-11-11 07:48] LABS: Estimated Average Glucose 128 mg/dL; Hemoglobin A1C 149.2109 umol/L; Hemoglobin A1c % 6.1 %
[2021-11-11 08:10] LABS: Blood Urea Nitrogen 11 mg/dL (9-16); Calcium 8.9 mg/dL (8.4-10.2); Creatinine Clr Calc Pharmacy 114.9; Estimated Glomerular Filt Rate > 60; Glucose Random 128 mg/dL (60-115)
[2021-11-11 08:13] LABS: SLIDE REVIEW VERIFIED
[2021-11-11] MEDS: methylPREDNISolone Sod Succ 40 MG/ML VIAL IVPUSH ×2 (08:16→20:13)
[2021-11-11] MEDS: 0.9 % Sodium Chloride Flush 3 ML SYRINGE IVFLUSH ×2 (08:16→16:34)
[2021-11-11 08:40] LABS: Anion Gap 16 (12-20); Carbon Dioxide 30 mmol/L (22-29); Chloride 98 mmol/L (96-108); Potassium 4.8 mmol/L (3.3-5.1); Sodium 139 mmol/L (135-145)
[2021-11-11] MEDS: Valproic Acid (as Sodium Salt) 250 MG in Dextrose 5 % 50 ML 52.5 MG IV ×3 (09:44→20:46)
--- NOTE | 2021-11-11 11:30 | PC.NURSE ---
1128-pt left via bed with MRI staff for MRI scan ordered.
[2021-11-11 11:34] LABS: Glucose, Whole Blood 98 mg/dL (60-115)
--- NOTE | 2021-11-11 15:51 | HO.PM.IMPN ---
Subjective Subjective Date of Service: 11/11/21 Interval History: Possible Toxic metabolic encephalopathy Review of Systems little more awake ,mumbles few words Physical Exam Vital Signs: Vital Signs: Last Vital Signs Temp 97 F 11/11/21 08:00 Pulse 76 11/11/21 14:37 Resp 18 11/11/21 14:37 BP 139/74 11/11/21 08:00 Pulse Ox 100 11/11/21 08:00 O2 Del Method 11/11/21 08:00 O2 Flow Rate 3.5 11/11/21 08:00 Oxygen Flow Rate 3 11/10/21 11:57 BMI result Body Mass Index 27.2 Appearance:? Today slightly more awake, open eyes intermittently but then goes to sleep, even moved his hands when asked cvs: [id number], [id number] . res:? Air entry slightly diminished at bases few scattered wheeze . abd: no rebound or guarding , nt, bs present. ext pulses present , no cyanosis . neuro: moves ext. Objective Data Active Medications Albuterol/Ipratropium (Albuterol/Iprat 2.5/0.5mg 3 Ml Ampul.Neb) 3 ml INHALE RQ4H WHILE AWAKE [facility] Last Admin: 11/11/21 14:36 Dose: 3 ml Documented By: JOCELINE Heparin Sodium (Porcine) (Heparin Sodium,Porcine 5,000 Unit/Ml Vial) 5,000 unit SUBCUT Q8H [facility] Last Admin: 11/11/21 09:44 Dose: 5,000 unit Documented By: RAJI Piperacillin Sod/Tazobactam (Sod 3.375 gm/ Sodium Chloride) 50 mls @ 100 mls/hr IV Q6H [facility] Last Admin: 11/11/21 15:09 Dose: 100 mls/hr Documented By: RAJI Lactated Ringer's (Lr) 1,000 mls @ 60 mls/hr IVCONT .[id number] [facility] Last Admin: 11/10/21 19:03 Dose: 60 mls/hr Documented By: DHAVAL Valproic Acid 250 mg/ Dextrose 52.5 mls @ 52.5 mls/hr IV Q6H [facility] Last Infusion: 11/11/21 15:04 Dose: 0 mls/hr Documented By: RAJI Lactulose (Lactulose 160 Gm/240 Ml Solution) 200 gm MT DAILY PRN PRN Reason: ELEVATED AMMONIA LEVELS Methylprednisolone Sodium Succinate (Methylprednisolone Sod Succ 40 Mg/Ml Vial) 40 mg IVPUSH Q12H [facility] Last Admin: 11/11/21 08:16 Dose: 40 mg Documented By: RAJI Pantoprazole Sodium (Pantoprazole Sodium 40 Mg/10 Ml Vial) 40 mg IVPUSH DAILY@0630 [facility] Last Admin: 11/11/21 06:14 Dose: 40 mg Documented By: MARLINE Pharmacy Consult (Consult Rx Perform Med Rec) 1 each MISCELLANE ONCE PRN PRN Reason: Consult order Sodium Chloride (0.9 % Sodium Chloride Flush 3 Ml Syringe) 3 ml IVFLUSH QSHIFT [facility] Last Admin: 11/11/21 08:16 Dose: 3 ml Documented By: RAJI Labs CBC & Chem 7: 11/11/21 07:16 11/11/21 07:16 Labs: Laboratory Results - last 24 hr 11/10/21 11/10/21 11/10/21 19:36 19:39 19:46 MCV MCH MCHC RDW Plt Count MPV Immature Gran % (Auto) Neut % (Auto) Lymph % (Auto) Frio % (Auto) Eos % (Auto) Baso % (Auto) Lymph # (Auto) Frio # (Auto) Eos # (Auto) Baso # (Auto) Abs Immat Gran (auto) Absolute Neuts (auto) Absolute Nucleated RBC Nucleated RBC % (auto) Smear Tech's Comments VBG pH 7.48 H VBG pCO2 36 VBG pO2 132 VBG HCO3 26 VBG O2 Saturation 100.0 VBG Base Excess 3.6 Anion Gap Estim Creat Clear Calc Estimated GFR POC Glucose Random Glucose Estimat Average Glucose Hemoglobin A1c % Calcium Ammonia 59 H Salicylates Urine Opiates Screen Not Detected Urine Fentanyl Screen Not Detected Acetaminophen Ur Barbiturates Screen Not Detected Ur Phencyclidine Scrn Not Detected Ur Amphetamines Screen Not Detected U Benzodiazepines Scrn Not Detected Urine Cocaine Screen Not Detected U Marijuana (THC) Screen Not Detected 11/10/21 11/10/21 11/11/21 19:46 22:15 07:16 MCV 91.7 MCH 30.5 MCHC 33.3 RDW 15.1 Plt Count 187 MPV 9.1 L Immature Gran % (Auto) 0.4 Neut % (Auto) 90.9 H Lymph % (Auto) 7.0 L Frio % (Auto) 1.7 L Eos % (Auto) 0.0 Baso % (Auto) 0.0 Lymph # (Auto) 0.4 L Frio # (Auto) 0.1 Eos # (Auto) 0.0 Baso # (Auto) 0.0 Abs Immat Gran (auto) 0.02 Absolute Neuts (auto) 4.7 Absolute Nucleated RBC 0.000 Nucleated RBC % (auto) 0.0 Smear Tech's Comments VERIFIED VBG pH VBG pCO2 VBG pO2 VBG HCO3 VBG O2 Saturation VBG Base Excess Anion Gap Estim Creat Clear Calc Estimated GFR POC Glucose 101 Random Glucose Estimat Average Glucose Hemoglobin A1c % Calcium Ammonia Salicylates < 5.0 L Urine Opiates Screen Urine Fentanyl Screen Acetaminophen 1 Ur Barbiturates Screen Ur Phencyclidine Scrn Ur Amphetamines Screen U Benzodiazepines Scrn Urine Cocaine Screen U Marijuana (THC) Screen 11/11/21 11/11/21 11/11/21 07:16 07:16 07:39 MCV MCH MCHC RDW Plt Count MPV Immature Gran % (Auto) Neut % (Auto) Lymph % (Auto) Frio % (Auto) Eos % (Auto) Baso % (Auto) Lymph # (Auto) Frio # (Auto) Eos # (Auto) Baso # (Auto) Abs Immat Gran (auto) Absolute Neuts (auto) Absolute Nucleated RBC Nucleated RBC % (auto) Smear Tech's Comments VBG pH VBG pCO2 VBG pO2 VBG HCO3 VBG O2 Saturation VBG Base Excess Anion Gap 16 Estim Creat Clear Calc 114.9 Estimated GFR > 60 POC Glucose 123 H Random Glucose 128 H Estimat Average Glucose 128 Hemoglobin A1c % 6.1 Calcium 8.9 Ammonia Salicylates Urine Opiates Screen Urine Fentanyl Screen Acetaminophen Ur Barbiturates Screen Ur Phencyclidine Scrn Ur Amphetamines Screen U Benzodiazepines Scrn Urine Cocaine Screen U Marijuana (THC) Screen 11/11/21 11:25 MCV MCH MCHC RDW Plt Count MPV Immature Gran % (Auto) Neut % (Auto) Lymph % (Auto) Frio % (Auto) Eos % (Auto) Baso % (Auto) Lymph # (Auto) Frio # (Auto) Eos # (Auto) Baso # (Auto) Abs Immat Gran (auto) Absolute Neuts (auto) Absolute Nucleated RBC Nucleated RBC % (auto) Smear Tech's Comments VBG pH VBG pCO2 VBG pO2 VBG HCO3 VBG O2 Saturation VBG Base Excess Anion Gap Estim Creat Clear Calc Estimated GFR POC Glucose 98 Random Glucose Estimat Average Glucose Hemoglobin A1c % Calcium Ammonia Salicylates Urine Opiates Screen Urine Fentanyl Screen Acetaminophen Ur Barbiturates Screen Ur Phencyclidine Scrn Ur Amphetamines Screen U Benzodiazepines Scrn Urine Cocaine Screen U Marijuana (THC) Screen Microbiology Microbiology Results: Microbiology 11/10/21 12:26 Blood Culture - Preliminary Blood - Venous No growth after 24 hours. 11/10/21 12:26 Blood Culture - Preliminary Blood - Venous No growth after 24 hours. Assessment and Plan (1) Altered mental status: Status: Acute Plan 76-year-old male with past medical history of COPD, epilepsy , history of prostate cancer-failed radiation therapy on Lupron-came to the hospital : ams /pinpoint pupils. 1. Possible Toxic metabolic encephalopathy seems slightly moreawake CT head negative, CT chest is also mostly fine except some congestion. Given Narcan x3 ?? Patient's [facility] medication list shows oxycodone also. Started on hydration, neuro checks. fs runing 100-120 Ammonia level slightly elevated , urine drug screen-neg. Currently vitals are stable, and sats improving. If ammonia levels elevated -start rectal lactulose. Keep patient NPO until says patient get more awake and get swallow evaluation. mri seems fine neuro eval if does not improve. 2. Possible aspiration pneumonia: Started on IV antibiotics, blood cultures sent by ED. 3. COPD possible mild exacerbation: Air entry diminished, has few wheezing Added nebs and steroids 4. History of seizure:? Depakote switched to IV. 5. CT chest shows chest congestion: Troponin and EKG fine bnp normal , no leg edema Bedside echo done by ICU :? EF is around 45-50%, IVF easily compressable Less likely cardiogenic edema, seems euvolaemic Hold Lasix for now 6. unclear why patient is on metformin? :? Will check fingersticks So far fingersticks are running 100-110 range Gentle hydration Hemoglobin A1c in the morning inpatient needs:Toxic metabolic encephalopathy unclear etiology Quality Stroke Does the patient have a stroke diagnosis?: No VTE Prior VTE?: No VTE Risk Level:: Medical - moderate - high VTE Device Contraindication: N/A - Device Ordered VTE Drug Contraindication: N/A - Med Ordered
[2021-11-11 16:30] LABS: Glucose, Whole Blood 96 mg/dL (60-115)
[2021-11-11] MEDS: Lactated Ringers 1,000 ML 60 ML IVCONT (16:34)
[2021-11-11 20:20] LABS: Glucose, Whole Blood 95 mg/dL (60-115)
[2021-11-11 23:42] LABS: Glucose, Whole Blood 105 mg/dL (60-115)
[2021-11-12] VITALS (8 sets, daily range): BP systolic 118–146; BP diastolic 70–97; PULSE 71–87; RESP 17–22; TEMP 36.4–36.8; O2SAT 91–98
[2021-11-12] MEDS: Piperacillin Sodium/Tazobactam 3.375 GM in 0.9 % Sodium Chloride 50 ML IV ×5 (00:16→23:18)
[2021-11-12] MEDS: 0.9 % Sodium Chloride Flush 3 ML SYRINGE IVFLUSH (00:17)
[2021-11-12] MEDS: Heparin Sodium,Porcine 5,000 UNIT/ML VIAL 5000 UNIT SUBCUT ×3 (02:08→18:31)
[2021-11-12] MEDS: Valproic Acid (as Sodium Salt) 250 MG in Dextrose 5 % 50 ML 52.5 MG IV ×3 (02:08→16:10)
[2021-11-12] MEDS: Lactated Ringers 1,000 ML 60 ML IVCONT (05:25)
[2021-11-12] MEDS: Pantoprazole Sodium 40 MG/10 ML VIAL IVPUSH (05:25)
[2021-11-12 06:42] LABS: Hematocrit 41.8 % (42.0-52.0); Hemoglobin 13.6 g/dl (14.0-18.0); Mean Corpuscular HGB Conc 32.5 g/dl (31.0-36.0); Mean Corpuscular Volume 92.1 fL (80.0-98.0); Mean Platelet Volume 9.2 fL (9.4-12.4); Platelet Count 196 X10*3/uL (160-400); Red Blood Count 4.54 X10*6/uL (4.60-5.80); Red Cell Distribution Width 15.5 % (11.0-16.0); White Blood Count 6.2 X10*3/uL (4.8-10.8)
[2021-11-12 07:29] LABS: Glucose, Whole Blood 75 mg/dL (60-115)
[2021-11-12] MEDS: Albuterol/Iprat 2.5/0.5MG 3 ML AMPUL.NEB INHALE ×3 (07:48→20:07)
[2021-11-12 07:57] LABS: Anion Gap 19 (12-20); Blood Urea Nitrogen 14 mg/dL (9-16); Calcium 9.2 mg/dL (8.4-10.2); Carbon Dioxide 29 mmol/L (22-29); Chloride 99 mmol/L (96-108); Estimated Glomerular Filt Rate > 60; Glucose Random 85 mg/dL (60-115); Potassium 4.8 mmol/L (3.3-5.1); Sodium 142 mmol/L (135-145)
[2021-11-12] MEDS: Dextrose 5 % and 0.45 % NaCl 1,000 ML 80 ML IVCONT ×2 (08:02→21:55)
[2021-11-12] MEDS: methylPREDNISolone Sod Succ 40 MG/ML VIAL IVPUSH ×2 (08:02→20:36)
--- NOTE | 2021-11-12 10:27 | P.CNNE_ITS ---
History of Present Illness Data of Consult Service Date: 11/12/21 Primary Care Provider: Richard Castillo DO HPI Reason for consult: Unresponsive 76 years old man with underlying history of she has affective disorder and COPD was brought to hospital with an episode of unresponsiveness. He was unable to provide any meaningful history. Apparently multiple investigations did not reveal any obvious explanation. Review of Systems Review of Systems: Could not be done with [facility] Past Medical History Medical History Cervicalgia COPD (chronic obstructive pulmonary disease) Dementia Dysphagia Epilepsy GERD (gastroesophageal reflux disease) Hypertension Muscle weakness (generalized) Schizo affective schizophrenia Spinal stenosis Social History Social History Household Members: None Housing: Longterm Housing Other:: [facility] Are you a primary lead care manager to a significant other at home: No Do you presently have visiting nurse or other home services: Yes Unable to assess alcohol history related to: Unable to respond Patient Tobacco Use Status: Never used Tobacco Second Hand Smoke Exposure: No service: No Current occupational status: disabled Meds Allergies Allergy/AdvReac Type Severity Reaction Status Date / Time tuberculin, purified protein Allergy Unknown UNKNOWN Verified 06/19/21 15:02 deriva [Tuberculin,Purif.Prot.Deriv.] Active Medications: Current Medications Albuterol/Ipratropium (Albuterol/Iprat 2.5/0.5mg 3 Ml Ampul.Neb) 3 ml INHALE RQ4H WHILE AWAKE [facility] Last Admin: 11/12/21 07:48 Dose: 3 ml Heparin Sodium (Porcine) (Heparin Sodium,Porcine 5,000 Unit/Ml Vial) 5,000 unit SUBCUT Q8H [facility] Last Admin: 11/12/21 09:34 Dose: 5,000 unit Piperacillin Sod/Tazobactam (Sod 3.375 gm/ Sodium Chloride) 50 mls @ 100 mls/hr IV Q6H [facility] Last Infusion: 11/12/21 06:20 Dose: Infused Valproic Acid 250 mg/ Dextrose 52.5 mls @ 52.5 mls/hr IV Q6H [facility] Last Admin: 11/12/21 09:24 Dose: 52.5 mls/hr Dextrose/Sodium Chloride (D51/2ns) 1,000 mls @ 80 mls/hr IVCONT .[id number] [facility] Last Admin: 11/12/21 08:02 Dose: 80 mls/hr Lactulose (Lactulose 160 Gm/240 Ml Solution) 200 gm AK Q12H [facility] Last Admin: 11/12/21 04:12 Dose: Not Given Methylprednisolone Sodium Succinate (Methylprednisolone Sod Succ 40 Mg/Ml Vial) 40 mg IVPUSH Q12H [facility] Last Admin: 11/12/21 08:02 Dose: 40 mg Pantoprazole Sodium (Pantoprazole Sodium 40 Mg/10 Ml Vial) 40 mg IVPUSH DAILY@0630 [facility] Last Admin: 11/12/21 05:25 Dose: 40 mg Pharmacy Consult (Consult Rx Perform Med Rec) 1 each MISCELLANE ONCE PRN PRN Reason: Consult order Sodium Chloride (0.9 % Sodium Chloride Flush 3 Ml Syringe) 3 ml IVFLUSH QSHIFT [facility] Last Admin: 11/12/21 08:02 Dose: Not Given Home Medications Medication Instructions Recorded Confirmed Last Taken Type acetaminophen 325 mg capsule 650 mg PO Q4H PRN Pain 01/19/20 11/10/21 Unknown History amlodipine 5 mg tablet 5 mg PO DAILY 01/19/20 11/10/21 Unknown History aripiprazole 5 mg tablet 5 mg PO DAILY 01/19/20 11/10/21 Unknown History aspirin 81 mg tablet 81 mg PO DAILY 01/19/20 11/10/21 Unknown History bicalutamide 50 mg tablet 50 mg PO DAILY 01/19/20 11/10/21 Unknown History bisacodyl 5 mg rectal suppository 10 mg AK DAILY 01/19/20 11/10/21 Unknown History divalproex 500 mg tablet,extended 1,000 mg PO DAILY 01/19/20 11/10/21 Unknown History release 24 hr furosemide 20 mg tablet (Lasix) 20 mg PO QAM 01/19/20 11/10/21 Unknown History ibuprofen 200 mg tablet 200 mg PO Q6H PRN Pain 01/19/20 11/10/21 Unknown History levalbuterol tartrate 45 2 puff inhalation Q4-6H PRN cough 01/19/20 11/10/21 Unknown History mcg/actuation aerosol inhaler lorazepam 2 mg/mL injection 1 mg sublingual BEDTIME PRN 01/19/20 11/10/21 Unknown History solution (Ativan) Seizure Activity omeprazole 20 mg capsule,delayed 20 mg PO DAILY 01/19/20 11/10/21 Unknown History release polyvinyl alcohol 1.4 % eye drops 1 drp ophthalmic (eye) DAILY 01/19/20 11/10/21 Unknown History (Artificial Tears (polyvinyl alcohol)) sennosides 8.6 mg tablet (senna) 8.6 mg PO BEDTIME PRN Constipation 01/19/20 11/10/21 Unknown History lactulose 10 gram/15 mL oral 30 ml PO DAILY 11/10/21 11/10/21 Unknown History solution metformin 500 mg tablet 1 tab PO BID 11/10/21 11/10/21 Unknown History Physical Exam Vital Signs: Vital Signs: Last Vital Signs Temp 98.3 F 11/12/21 07:43 Pulse 79 11/12/21 07:49 Resp 22 H 11/12/21 07:49 BP 138/79 11/12/21 07:43 Pulse Ox 93 11/12/21 07:43 O2 Del Method 11/12/21 07:43 O2 Flow Rate 4 11/12/21 07:43 Oxygen Flow Rate 3 11/10/21 11:57 BMI result Body Mass Index 27.2 Neuro: Other: He was alert and awake mumbling and speaking in somewhat dysphasic speech. He was able to comprehend and follow one-step commands. He made eye contact. He was not in any distress. Moderate amount of oral buccal dyskinesia was noted. There was no obvious focal arm weakness. Significant leg edema and in reflexia was noted. Plantars were flat. Results Labs CBC & Chem 7: 11/12/21 05:51 11/12/21 05:51 Labs: Short CBC 11/12/21 Range/Units 05:51 WBC 6.2 (4.8-10.8) X10*3/uL Hgb 13.6 L (14.0-18.0) g/dl Hct 41.8 L (42.0-52.0) % Plt Count 196 (160-400) X10*3/uL BMP 11/12/21 05:51 Sodium 142 Potassium 4.8 Chloride 99 Carbon Dioxide 29 BUN 14 Creatinine 0.61 Calcium 9.2 MRI of brain revealed moderately severe diffuse atrophy [id number] chronic microvascular ischemic changes and of 1 right parietal temporal probably ischemic lesion resulting in encephalomalacia. Microbiology Microbiology Results: Microbiology 11/10/21 12:26 Blood - Venous Blood Culture - Preliminary No growth after 24 hours. 11/10/21 12:26 Blood - Venous Blood Culture - Preliminary No growth after 24 hours. Assessment and Plan (1) Altered mental status: Status: Acute 76 years old man with underlying history of she has affective disorder taking neuroleptics type of medicine was brought to hospital with change in mental status or unresponsiveness. There was no obvious explanation at this time. There was no sign of acute stroke though he has few ischemic lesions. Seizure disorder was a possibility specially because of right hemispheric lesion. He reeder s moderate amount of tardive dyskinesia impacting his speech. If possible, obtain an EEG to rule out any tendency for seizure disorder. On the other hand he is already taking significant amount of Depakote, which could cover him for seizures. (2) Tardive dyskinesia: Status: Acute Procedures Date of Service Date of Service: 11/12/21
--- NOTE | 2021-11-12 11:39 | MHC.CM.PN ---
Addendum entered by Alejandra Nava 11/12/21 14:01: CM AGAIN ATTEMPTED TO CONTACT FINA HEDRICK AT ANOTHER NUMBER ON FILE, , THIS NUMBER ALSO JUST RINGS WITH NO ANSWER AND NO VM. [facility] HAS STILL NOT RESPONDED WITH CONFIRMATION OF GUARDIAN Original Note: PT IS A LTC RESIDENT OF [facility] AT [place] PER DEMOGRAPHICS, PTS GUARDIAN IS CARMEN HEDRICK CM ATTEMPTED TO CALL ATTLynda ASHRAFHELEN AT [phone], HOWEVER THE RECORDING AT THAT NUMBER, PROVIDES INSTRUCTIONS TO CALL [phone]. CM CALLED THE SECOND NUMBER HOWEVER IT JUST RINGS, THERE IS NO ANSWER AND NO VM OPTION CM SENT A REFERRAL TO [facility] VIA [employer] AND REQUESTED CONFIRMATION THAT FINA HEDRICK IS STILL PTS GUARDIAN AWAITING RESPONSE CURRENT DC PLAN IS RETURN TO [facility] VIA BLS
[2021-11-12 13:47] LABS: Glucose, Whole Blood 118 mg/dL (60-115)
--- NOTE | 2021-11-12 14:34 | P.PNIM_ITS ---
Subjective Subjective Date of Service: 11/12/21 Interval History: Possible Toxic metabolic encephalopathy Review of Systems awake , produces some words -follows some commads Physical Exam Vital Signs: Vital Signs: Last Vital Signs Temp 98.3 F 11/12/21 07:43 Pulse 71 11/12/21 12:00 Resp 20 11/12/21 12:00 BP 119/86 11/12/21 12:00 Pulse Ox 93 11/12/21 07:43 O2 Del Method 11/12/21 07:43 O2 Flow Rate 4 11/12/21 07:43 Oxygen Flow Rate 3 11/10/21 11:57 BMI result Body Mass Index 27.2 Appearance:? follows few commans ,more awake cvs: [id number], [id number] . res:? Air entry slightly diminished at bases few scattered wheeze . abd: no rebound or guarding , nt, bs present. ext pulses present , no cyanosis . neuro: moves ext. Objective Data Active Medications Albuterol/Ipratropium (Albuterol/Iprat 2.5/0.5mg 3 Ml Ampul.Neb) 3 ml INHALE RQ4H WHILE AWAKE [facility] Last Admin: 11/12/21 11:04 Dose: 3 ml Documented By: JOCELINE Heparin Sodium (Porcine) (Heparin Sodium,Porcine 5,000 Unit/Ml Vial) 5,000 unit SUBCUT Q8H [facility] Last Admin: 11/12/21 09:34 Dose: 5,000 unit Documented By: GRACIE Piperacillin Sod/Tazobactam (Sod 3.375 gm/ Sodium Chloride) 50 mls @ 100 mls/hr IV Q6H [facility] Last Admin: 11/12/21 13:53 Dose: 100 mls/hr Documented By: GRACIE Valproic Acid 250 mg/ Dextrose 52.5 mls @ 52.5 mls/hr IV Q6H [facility] Last Infusion: 11/12/21 11:02 Dose: 52.5 mls/hr Documented By: GRACIE Dextrose/Sodium Chloride (D51/2ns) 1,000 mls @ 80 mls/hr IVCONT .[id number] [facility] Last Admin: 11/12/21 08:02 Dose: 80 mls/hr Documented By: GRACIE Lactulose (Lactulose 160 Gm/240 Ml Solution) 200 gm IA Q12H [facility] Last Admin: 11/12/21 04:12 Dose: Not Given Documented By: MILLI Non-Admin Reason: Patient Condition Contraindication Methylprednisolone Sodium Succinate (Methylprednisolone Sod Succ 40 Mg/Ml Vial) 40 mg IVPUSH Q12H [facility] Last Admin: 11/12/21 08:02 Dose: 40 mg Documented By: GRACIE Pantoprazole Sodium (Pantoprazole Sodium 40 Mg/10 Ml Vial) 40 mg IVPUSH DAILY@0630 [facility] Last Admin: 11/12/21 05:25 Dose: 40 mg Documented By: MILLI Pharmacy Consult (Consult Rx Perform Med Rec) 1 each MISCELLANE ONCE PRN PRN Reason: Consult order Sodium Chloride (0.9 % Sodium Chloride Flush 3 Ml Syringe) 3 ml IVFLUSH QSHIFT [facility] Last Admin: 11/12/21 08:02 Dose: Not Given Documented By: GRACIE Non-Admin Reason: IV Running Labs CBC & Chem 7: 11/12/21 05:51 11/12/21 05:51 Labs: Laboratory Results - last 24 hr 11/11/21 11/11/21 11/11/21 16:26 19:42 23:31 MCV MCH MCHC RDW Plt Count MPV Absolute Nucleated RBC Nucleated RBC % (auto) Anion Gap Estim Creat Clear Calc Estimated GFR POC Glucose 96 95 105 Random Glucose Calcium 11/12/21 11/12/21 11/12/21 05:51 05:51 07:11 MCV 92.1 MCH 30.0 MCHC 32.5 RDW 15.5 Plt Count 196 MPV 9.2 L Absolute Nucleated RBC 0.000 Nucleated RBC % (auto) 0.0 Anion Gap 19 Estim Creat Clear Calc 113.0 Estimated GFR > 60 POC Glucose 75 Random Glucose 85 Calcium 9.2 11/12/21 11:53 MCV MCH MCHC RDW Plt Count MPV Absolute Nucleated RBC Nucleated RBC % (auto) Anion Gap Estim Creat Clear Calc Estimated GFR POC Glucose 118 H Random Glucose Calcium Microbiology Microbiology Results: Microbiology 11/10/21 12:26 Blood Culture - Preliminary Blood - Venous No growth after 24 hours. 11/10/21 12:26 Blood Culture - Preliminary Blood - Venous No growth after 24 hours. Assessment and Plan (1) Tardive dyskinesia: Status: Acute (2) Altered mental status: Status: Acute Plan 76-year-old male with past medical history of COPD, epilepsy , history of prostate cancer-failed radiation therapy on Lupron-came to the hospital : ams /pinpoint pupils. 1. Possible Toxic metabolic encephalopathy seems slightly moreawake CT head negative, CT chest is also mostly fine except some congestion. Given Narcan x3 ?? Patient's skilled nursing medication list shows oxycodone also. Ammonia level slightly elevated , urine drug screen-neg. Currently vitals are stable, and sats improving. If ammonia levels elevated -on rectal lactulose. getting swallow evaluation. mri seems fine . neuro saw the patient-added EEG , ? tardative dyskinsia - will add psych eval also. 2. Possible aspiration pneumonia: Started on IV antibiotics, blood cultures sent by ED. 3. COPD possible mild exacerbation: Air entry diminished, has few wheezing Added nebs and steroids 4. History of seizure:? Depakote switched to IV. 5. CT chest shows chest congestion: Troponin and EKG fine bnp normal , no leg edema Bedside echo done by ICU :? EF is around 45-50%, IVF easily compressable Less likely cardiogenic edema, seems euvolaemic Hold Lasix for now 6. unclear why patient is on metformin? :? Will check fingersticks So far fingersticks are running 100-110 range Gentle hydration Hemoglobin A1c in the morning 7. initail chest CT -Soft tissue density 2.3 cm right retroareolar region of the breast, this require further investigation with follow-up DIAGNOSTIC MAMMOGRAM AND ULTRASOUND. inpatient needs:Toxic metabolic encephalopathy unclear etiology Quality Stroke Does the patient have a stroke diagnosis?: No VTE Prior VTE?: No VTE Risk Level:: Medical - moderate - high VTE Device Contraindication: N/A - Device Ordered VTE Drug Contraindication: N/A - Med Ordered
[2021-11-12 16:23] LABS: Glucose, Whole Blood 102 mg/dL (60-115)
[2021-11-12 20:14] LABS: Glucose, Whole Blood 96 mg/dL (60-115)
[2021-11-12] MEDS: Valproic Acid (as Sodium Salt) 250 MG in Dextrose 5 % 50 ML 52.2 MG IV (20:36)
[2021-11-13] VITALS (7 sets, daily range): BP systolic 137–159; BP diastolic 72–86; PULSE 75–88; RESP 17–20; TEMP 36.1–36.8; O2SAT 90–96
--- NOTE | 2021-11-13 | EEG_ITS ---
This is a 16-channel EEG with an EKG lead. The patient is reported awake, restless, and confused during the tracing. Background EEG rhythm is low amplitude fast with frequent lead and muscle artifacts. Photic stimulation and hyperventilation were not performed. No obvious asymmetry, paroxysmal tendency, sharp waves, or spikes are noted. IMPRESSION: Limited but normal-looking EEG. MD ALFREDO Marley/ÁNGEL / [id number]
[2021-11-13] MEDS: Valproic Acid (as Sodium Salt) 250 MG in Dextrose 5 % 50 ML 52.2 MG IV (02:27)
[2021-11-13] MEDS: Heparin Sodium,Porcine 5,000 UNIT/ML VIAL 5000 UNIT SUBCUT ×2 (02:27→09:39)
[2021-11-13] MEDS: Pantoprazole Sodium 40 MG/10 ML VIAL IVPUSH (05:14)
[2021-11-13] MEDS: Piperacillin Sodium/Tazobactam 3.375 GM in 0.9 % Sodium Chloride 50 ML IV ×3 (05:14→18:15)
[2021-11-13 06:02] LABS: Ammonia 64 umol/L (13-55)
[2021-11-13 06:12] LABS: Anion Gap 14 (12-20); Blood Urea Nitrogen 12 mg/dL (9-16); Calcium 8.7 mg/dL (8.4-10.2); Carbon Dioxide 28 mmol/L (22-29); Chloride 102 mmol/L (96-108); Creatinine Clr Calc Pharmacy 111.2; Estimated Glomerular Filt Rate > 60; Glucose Random 127 mg/dL (60-115); Potassium 4.3 mmol/L (3.3-5.1); Sodium 140 mmol/L (135-145)
[2021-11-13 07:40] LABS: Glucose, Whole Blood 103 mg/dL (60-115)
[2021-11-13] MEDS: Valproic Acid (as Sodium Salt) 250 MG in Dextrose 5 % 50 ML 52.5 MG IV ×3 (09:39→20:46)
[2021-11-13] MEDS: methylPREDNISolone Sod Succ 40 MG/ML VIAL IVPUSH ×2 (09:39→20:46)
[2021-11-13] MEDS: 0.9 % Sodium Chloride Flush 3 ML SYRINGE IVFLUSH ×2 (09:40→15:49)
[2021-11-13] MEDS: Albuterol/Iprat 2.5/0.5MG 3 ML AMPUL.NEB INHALE (11:24)
[2021-11-13 11:28] LABS: Glucose, Whole Blood 118 mg/dL (60-115)
--- NOTE | 2021-11-13 13:16 | MHC.CM.PN ---
Addendum entered by Kailee Guerin 11/13/21 13:31: [facility] # [phone] Original Note: This remote mortgage underwriter renetta Ashby and Bernardino re: current guardian for patient. Guardian is Bethanie Blackmon. The paperwork has not been signed or docketed by the courts.
--- NOTE | 2021-11-13 13:44 | P.CNPS_ITS ---
History of Present Illness Date of Service: 11/13/21 Chief Complaint: UNRESPONSIVE Reason for Consult: tardive dyskinesia. Requesting physician: Kenyetta Stein Discussed with referring provider: Yes Sources of Information: patient interviewed and chart reviewed Additional Sources of Information: spoke with nurse manager er on patient's unit at [facility] Narrative: Patient was pleasant upon approach. Mostly Portuguese speaking. Alert to self and place, able to say he was in the hospital. Carries diagnoses of dementia, schizoaffective disorder. Aphasic speech, mostly garbled, with coherent word here and there. Good eye contact. Patient noted to have oral buccal dyskinesia, with facial droop on left side. Per patient's RN, this is not new today. A review of medications shows patient receives aripiprazole 5 mg daily. He also has divalproex sodium ER 1000 mg daily. Patient has had both medications for some time. Phone call placed to [facility], spoke with patient's nurse manager er. She reports that patient has had tardive dyskinesia around oral buccal area for at least the past 6 years. She states that he sees Dr. Victoria for psychiatry, and that his psychiatric providers fully aware of the symptoms. Medical Evaluation Reviewed: Yes Review of Systems Review of Systems Unable to assess due to mental status and aphasia. [facility] Medical History Cervicalgia COPD (chronic obstructive pulmonary disease) Dementia Dysphagia Epilepsy GERD (gastroesophageal reflux disease) Hypertension Muscle weakness (generalized) Schizo affective schizophrenia Spinal stenosis Diagnostics Vital Signs (24Hr): Vital Signs - 24 hr 11/12/21 16:00 11/12/21 19:04 11/12/21 23:18 Temperature 97.5 F 98.0 F 98.0 F Pulse Rate 87 76 85 Respiratory Rate 18 19 17 Blood Pressure 118/86 146/79 H 141/97 H Pulse Oximetry 97 98 91 L Oxygen Delivery Method Room Air Humidified O2 Room Air Room Air 11/13/21 03:14 11/13/21 07:57 11/13/21 11:16 Temperature 98.0 F 97.0 F 98.3 F Pulse Rate 77 75 85 Respiratory Rate 18 18 17 Blood Pressure 154/80 H 137/72 151/84 H Pulse Oximetry 92 94 93 Oxygen Delivery Method Room Air Room Air Room Air 11/13/21 11:25 Temperature Pulse Rate 88 Respiratory Rate 20 Blood Pressure Pulse Oximetry Oxygen Delivery Method BMI result Body Mass Index 27.2 Labs Results: 11/12/21 05:51 11/13/21 05:51 Labs: Laboratory Results - last 48 hr 11/11/21 11/11/21 11/11/21 16:26 19:42 23:31 WBC RBC Hgb Hct MCV MCH MCHC RDW Plt Count MPV Absolute Nucleated RBC Nucleated RBC % (auto) Sodium Potassium Chloride Carbon Dioxide Anion Gap BUN Creatinine Estim Creat Clear Calc Estimated GFR POC Glucose 96 95 105 Random Glucose Calcium Ammonia 11/12/21 11/12/21 11/12/21 05:51 05:51 07:11 WBC 6.2 RBC 4.54 L Hgb 13.6 L Hct 41.8 L MCV 92.1 MCH 30.0 MCHC 32.5 RDW 15.5 Plt Count 196 MPV 9.2 L Absolute Nucleated RBC 0.000 Nucleated RBC % (auto) 0.0 Sodium 142 Potassium 4.8 Chloride 99 Carbon Dioxide 29 Anion Gap 19 BUN 14 Creatinine 0.61 Estim Creat Clear Calc 113.0 Estimated GFR > 60 POC Glucose 75 Random Glucose 85 Calcium 9.2 Ammonia 11/12/21 11/12/21 11/12/21 11:53 16:17 20:06 WBC RBC Hgb Hct MCV MCH MCHC RDW Plt Count MPV Absolute Nucleated RBC Nucleated RBC % (auto) Sodium Potassium Chloride Carbon Dioxide Anion Gap BUN Creatinine Estim Creat Clear Calc Estimated GFR POC Glucose 118 H 102 96 Random Glucose Calcium Ammonia 11/13/21 11/13/21 11/13/21 05:51 05:51 07:32 WBC RBC Hgb Hct MCV MCH MCHC RDW Plt Count MPV Absolute Nucleated RBC Nucleated RBC % (auto) Sodium 140 Potassium 4.3 Chloride 102 Carbon Dioxide 28 Anion Gap 14 BUN 12 Creatinine 0.62 Estim Creat Clear Calc 111.2 Estimated GFR > 60 POC Glucose 103 Random Glucose 127 H D Calcium 8.7 Ammonia 64 H 11/13/21 11:12 WBC RBC Hgb Hct MCV MCH MCHC RDW Plt Count MPV Absolute Nucleated RBC Nucleated RBC % (auto) Sodium Potassium Chloride Carbon Dioxide Anion Gap BUN Creatinine Estim Creat Clear Calc Estimated GFR POC Glucose 118 H Random Glucose Calcium Ammonia Imaging Radiology Impressions: ITS Impressions Chest X-Ray 11/10/21 12:59 IMPRESSION: Asymmetric low lung volume within the left hemithorax with superimposed apparent opacity at left upper and lower hemithorax. Technically limited study. Repeat radiograph when patient is able is recommended. Chest CT 11/10/21 14:06 IMPRESSION: *Cardiomegaly, pulmonary vascular congestion, congestive heart failure, mild interstitial opacifications concerning for mild interstitial edema. *Subsegmental platelike atelectasis left upper lobe and left lingula base. *Soft tissue density 2.3 cm right retroareolar region of the breast, this require further investigation with follow-up DIAGNOSTIC MAMMOGRAM AND ULTRASOUND. *No lung mass or suspicious spiculated nodules, there are few scattered tiny nonspecific lung nodular densities measuring up to 3 mm or less. If patient is high-risk consider correlation with follow-up CT in 12 months. *Coronary calcifications. *Aneurysmal dilatation of ascending aorta 4.3 cm. This also can be followed up by CT scan in 12 months. (Referring physician staff is being called, to be alerted of the above findings and recommendations.) DC Fleischner criteria followed. Head CT 11/10/21 14:08 IMPRESSION: No acute intracranial process seen. Age-related cerebral volume loss. KUB X-Ray 11/11/21 10:20 appropriate. IMPRESSION: No radiopaque metallic foreign body except for Menard's catheter within the bladder. Brain MRI 11/11/21 12:10 IMPRESSION: No acute intracranial abnormality. Specifically, no evidence of acute infarction. No mass or hemorrhage is seen. Chronic encephalomalacia and gliosis noted in the right temporal lobe. Background changes of mild brain parenchymal volume loss with progression compared with prior studies. Mental Status Exam Mental Status Exam Narrative: Older male, resting in bed, appears comfortable. Well-developed, well-nourished, in NAD. General appearance, Appropriate grooming. wearing hospital garb. Musculoskeletal: No involuntary movements noted, motor activity calm. Protruding tongue, oral buccal dyskinesia noted. Manner/behavior: Calm, cooperative. Speech: Aphasia Mood: Stable Affect: Mood congruent. Thought process/associations: Difficult to fully assess. Thought content: Difficult to fully assess Delusions: None. Hallucinations: None noted. No perceptual disturbances noted Suicidality/self destructive behavior: No evidence / gestures noted. Homicidality/violence: none. Unable to assess thought content due to aphasia MSK exam: ambulation not observed, no cogwheeling or rigidity noted. Medications Medications Current Medications Albuterol/Ipratropium (Albuterol/Iprat 2.5/0.5mg 3 Ml Ampul.Neb) 3 ml INHALE RQ4H WHILE AWAKE [facility] Last Admin: 11/13/21 11:24 Dose: 3 ml Heparin Sodium (Porcine) (Heparin Sodium,Porcine 5,000 Unit/Ml Vial) 5,000 unit SUBCUT Q8H [facility] Last Admin: 11/13/21 09:39 Dose: 5,000 unit Piperacillin Sod/Tazobactam (Sod 3.375 gm/ Sodium Chloride) 50 mls @ 100 mls/hr IV Q6H [facility] Last Infusion: 11/13/21 12:56 Dose: Infused Valproic Acid 250 mg/ Dextrose 52.5 mls @ 52.5 mls/hr IV Q6H [facility] Last Infusion: 11/13/21 10:44 Dose: Infused Dextrose/Sodium Chloride (D51/2ns) 1,000 mls @ 80 mls/hr IVCONT .[id number] [facility] Last Infusion: 11/13/21 11:00 Dose: Infused Lactulose (Lactulose 160 Gm/240 Ml Solution) 200 gm [place] Q8H [facility] Methylprednisolone Sodium Succinate (Methylprednisolone Sod Succ 40 Mg/Ml Vial) 40 mg IVPUSH Q12H [facility] Last Admin: 11/13/21 09:39 Dose: 40 mg Pantoprazole Sodium (Pantoprazole Sodium 40 Mg/10 Ml Vial) 40 mg IVPUSH DAILY@0630 [facility] Last Admin: 11/13/21 05:14 Dose: 40 mg Pharmacy Consult (Consult Rx Perform Med Rec) 1 each MISCELLANE ONCE PRN PRN Reason: Consult order Sodium Chloride (0.9 % Sodium Chloride Flush 3 Ml Syringe) 3 ml IVFLUSH QSHIFT [facility] Last Admin: 11/13/21 09:40 Dose: 3 ml Allergies Allergies Allergy/AdvReac Type Severity Reaction Status Date / Time tuberculin, purified protein Allergy Unknown UNKNOWN Verified 06/19/21 15:02 deriva [Tuberculin,Purif.Prot.Deriv.] Assessment & Plan Assessment & Plan (1) Tardive dyskinesia: Status: Acute Code(s): G24.01 - Drug induced subacute dyskinesia Assessment and Plan: Patient displays degree oral-buccal dyskinesia. Patient also carries diagnosis of schizoaffective disorder, dementia. A review of current medications do not include common classes of meds that can lead to TD. Patient does take Depakote, which in rare cases can cause TD. Patient also takes Abilify, which also has a low chance of causing TD. No anticholinergic medications currently prescribed, no antiemetics, no SSRIs or other antidepressants. I called [facility], spoke with nurse manager er on patient's unit where he resides. She reports that he has had these symptoms of TD for at least 6 years, and that his psychiatric provider is fully aware. Plan This TD appears to be a longstanding diagnosis for patient. No recommendations at this time. I have shared this with Dr. Kenyetta Stein. Thank you I spent minutes with the patient and/or on the patient floor today, greater than?50% of which was spent counseling/coordinating care.
--- NOTE | 2021-11-13 15:20 | MHC.CM.PN ---
per rounds pt is unresponsive no anticapated dc date at this time
[2021-11-13 15:22] LABS: Glucose, Whole Blood 140 mg/dL (60-115)
[2021-11-13] MEDS: Lactulose 20 GM/30 ML SOLUTION 30 GM PO (17:53)
--- NOTE | 2021-11-13 18:17 | MHC.SL.SWA ---
Speech Pathologist Impression: Risk of Aspiration Due to: Neurological Condition Reduced Cognition Dysphasia Diet Status: Liquid Consistency and Strategies for Safe Swallow: Liquid Intake Recommendation: Thin Liquid Intake Strategies: Small Sips Solid Food Consistency: Dietary Recommendations: Grnd/Mech Altered (NDD2) Additional Modifications to Solid Foods: Pt will need assistance and supervision at all meals. Patient can be impulsive with straw, but is able to use straw to help propel liquids. Pt will need to be cued to take small sips by straw. Assure that all food is prepped to be in manageable bites, alternate liquids and solid consistencies. Pt should remain in upright seated position for at least 30 Minutes after meal. Oral Medication Intake: Crushed with Puree Please contact the pharmacy regarding appropriate crushable or liquid drug formulations that are available whenever modified delivery is recommended. Compensatory Strategies and Precautions to be Taken for Safe Swallow: Sitting Upright (90 deg) Liquids from Straw Small Bites and Sips Alternate Liquids/Solids Rate of Ingestion Change Oral Check Supervision While Eating and Drinking for Safe Swallow: Total Assistance (1:1) Foods to Avoid: [place] sticky or hard consistencies. Swallowing Recommended Treatments: Compens. Strategy Educat. Recommendation for Speech: Inpatient Speech Therapy Comment: Pt presents with highly irregular oral motor behavior due to Tardive Dyskinesia characterized by repetitive, non-volitional tongue thrusting. However, with introduction of liquid or puree bolus, patient was able to orally manage bolus, and produce adequate pattern of oral movement to propel bolus with some delay. Pt has mild delay initiating swallow/absent swallow trigger, however timeliness of swallow initiation improved with use of straw on liquids. However patient was highly impulsive with straw usage, taking large, repetitive sips. After ingesting liquids, patient was noted to consistently burp, and after delay when solids were ingested, patient had period of a coughing spasm. ? Reflux/GI issues which may put patient at risk for micro aspiration. Patient tolerated puree consistencies and ground/soft foods. Recommend UPGRADE diet to GROUND/MECHANICAL/ALTERED (NDD2) with THIN LIQUIDS, PILLS CRUSHED in PUREE. Based upon paper record in chart this is patients baseline diet. Recommendations sent by secure text to ANGELINA MA and discussed in person with nursing at bedside. PRODUCT MARKETING DIRECTOR will continue to follow for toleration of diet, reassess swallow as needed. Frequency/Duration: Date Range for Service Req: Timeline to reassess: Transportation Solutions Manager Clinican/Clinical Fellow: No Supervisory Statement: I have reviewed and agree with the student/clinical fellow's documentation: N/A Speech Language Pathologist: Celina Lozano M.A., [facility]-PRODUCT MARKETING DIRECTOR
[2021-11-13 20:10] LABS: Glucose, Whole Blood 145 mg/dL (60-115)
[2021-11-13] MEDS: Lactulose 20 GM/30 ML SOLUTION PO (20:46)
[2021-11-13] MEDS: metFORMIN HCl 500 MG TABLET PO (20:46)
[2021-11-14] MEDS: Piperacillin Sodium/Tazobactam 3.375 GM in 0.9 % Sodium Chloride 50 ML IV ×3 (00:36→11:51)
[2021-11-14] MEDS: 0.9 % Sodium Chloride Flush 3 ML SYRINGE IVFLUSH (00:44)
[2021-11-14] MEDS: Valproic Acid (as Sodium Salt) 250 MG in Dextrose 5 % 50 ML 52.5 MG IV ×2 (03:24→10:11)
[2021-11-14 03:26] VITALS: BP 141/85; PULSE 64; RESP 18; TEMP 36.2; O2SAT 93
[2021-11-14] MEDS: Pantoprazole Sodium 40 MG/10 ML VIAL IVPUSH (05:45)
[2021-11-14 06:00] LABS: Ammonia 50 umol/L (13-55)
[2021-11-14 07:34] VITALS: BP 130/72; PULSE 62; RESP 17; TEMP 36.1; O2SAT 94
[2021-11-14 08:38] LABS: Glucose, Whole Blood 83 mg/dL (60-115)
[2021-11-14] MEDS: ARIPiprazole 5 MG TABLET PO (10:10)
[2021-11-14] MEDS: amLODIPine Besylate 5 MG TABLET PO (10:10)
[2021-11-14] MEDS: Aspirin 81 MG TAB.CHEW PO (10:10)
[2021-11-14] MEDS: Divalproex Sodium ER 500 MG TAB.ER.24H 1000 MG PO (10:10)
[2021-11-14] MEDS: Furosemide 20 MG TABLET PO (10:10)
[2021-11-14] MEDS: Lactulose 20 GM/30 ML SOLUTION PO ×2 (10:11→16:37)
[2021-11-14] MEDS: metFORMIN HCl 500 MG TABLET PO (10:11)
[2021-11-14] MEDS: methylPREDNISolone Sod Succ 40 MG/ML VIAL IVPUSH (10:11)
[2021-11-14 10:59] VITALS: BP 136/84; PULSE 76; RESP 19; TEMP 36.9; O2SAT 96
[2021-11-14] MEDS: Bicalutamide 50 MG TABLET PO (11:10)
[2021-11-14 11:23] LABS: Glucose, Whole Blood 161 mg/dL (60-115)
--- NOTE | 2021-11-14 12:18 | P.DS_ITS ---
DS: Providers Provider Date of Service: 11/14/21 Date of admission: 11/10/21 17:30 Primary care physician: Richard Castillo DO Consults: 11/12/21 14:46 Consult to Psychiatry Routine Consulting Provider: Psych Covering Reason for consultation: tardative dyskinsia Has provider been notified: No DS: Diagnosis Discharge Diagnosis (1) Tardive dyskinesia: Status: Acute DS: Summary Hospital Course Hospital Course: 76-year-old male with past medical history of COPD, epilepsy , history of prostate cancer-failed radiation therapy on Lupron and multiple comorbidities- came to the hospital because of found unresponsiveness in care home.? As per ED staff as well as goal the care home also: Is seems like patient was in usual state of health initially this morning-he is on the wheelchair most of the time, talks only a little as per the care home, he ate this morning also took his med morning medications-afterwards he sent to his room and later own found to have unresponsive. '' in the morning patient was given Tylenol for pain?? Body pain-unclear'' Patient was subsequently sent to the ED:? As per the ED patient was possibly taking?? Codeine in the care home, also found to have pain point people and was given Narcan x3. In the facility-denies any seizure-like activity. As per previous hematology/oncology note patient is on lactulose because of elevated in ammonia levels. Even after receiving Narcan x3:? Patient seems still not much responsive, responsive only to deep tactile stimuli and withdraws extremity to painful stimuli., patient opens eyes with deep tactile stimuli and try to mumble. Unable to obtain:? History due to patient unresponsiveness. Lab imaging EKG reviewed: CBC:? Mild leukopenia otherwise unremarkable COVID negative BMP seems fine, LFTs also normal. Ammonia level ordered. VBG noted:? PH seems fine, CO2 is slightly elevated in [address]:?right breast retroareolar solid soft Cardiomegaly, pulmonary vascular congestion, congestive heart failure, mild interstitial opacifications concerning for mild interstitial edema. ? *Subsegmental platelike atelectasis left upper lobe and left lingula base. ? *Soft tissue density 2.3 cm right retroareolar region of the breast, this require further investigation with follow-up DIAGNOSTIC MAMMOGRAM AND ULTRASOUND. Head CT:? No intracranial process age related cerebral volume loss. In ED:? Patient received 3 doses of Narcan, received Zosyn, initially received fluid also afterwards given Lasix when the CT scan chest shows some congestion. Admission was requested for possible ams . Admission was given for altered mental status, possible aspiration pneumonia. hospital course: Patient was admitted for toxic metabolic encephalopathy: Workup including CT head , electrolytes seems fine except mild elevation of ammonia. Sats are fine, U tox is negative, troponin negative and telemetry seems also fine. Patient responded well to conservative therapy IV hydration, lactulose, sup portive care and aspiration pneumonia calix given antibiotic. patient turn back to baseline , avoid opoids . consider further workup outpatient . Currently patient is at his baseline. Seen by speech and Swallow and diet advanced( ground/mech soft). Initially also thought to have a pinpoint pupil for which she received Narcan with little response but subsequently with above supportive care patient seems to be improved. Seen by Neurology: encephlopathy seems to be improved , eeg:limited but normal. has hx of seizure. continue depakote.please consider checking depakote levels in rehab. Patient had possible aspiration pneumonia-which treated with IV Zosyn, switched to p.o. add Augmentin upon discharge. patient is on metformin: likely on it because of possible dm: Hba1c is 6.1 and fs mostly between 100-140 , will hold metformin for now , monitor fingersticks and reintroduce metformin if needed in rehab. ct chest showed:Soft tissue density 2.3 cm right retroareolar region of the breast, this require further investigation with follow-up DIAGNOSTIC MAMMOGRAM AND ULTRASOUND. follow up above with diagnostic mammogram and ultrasound outpatient. plan: complete the course of antibiotics. repeat ammonia levels and lft's outpatiently. check depakote levels outpatient. follow up soft tissue density right breast(as above)- diagnostic mammogram and ultrasound outpatient. Avoid meds interfere with mental status consider further wokrup for outpatient for intail unresponsive episode. Assessment plan coordination time spent 50 minute. Time Spent with Patient Time attestation: Total time spent providing and/or coordinating discharge services: Discharge coordination time: Greater than 30 minutes Quality: Safe Use of Opioids Does Pt have an Active Cancer Diagnosis on the Problem List?: No Quality: Stroke Does the patient have a stroke diagnosis?: No Physical Exam Vital Signs: Vital Signs: Last Vital Signs Temp 98.4 F 11/14/21 10:59 Pulse 76 11/14/21 10:59 Resp 19 11/14/21 10:59 BP 136/84 11/14/21 10:59 Pulse Ox 96 11/14/21 10:59 O2 Del Method 11/14/21 10:59 O2 Flow Rate 4 11/12/21 07:43 Oxygen Flow Rate 3 11/10/21 11:57 BMI result Body Mass Index 27.2 Appearance:? seems more awake , follow simple commands ( seems at his baseline). cvs: rrr, [id number] . res:? air enrty fair , no rales or wheezing. abd: no rebound or guarding , nt, bs present. ext pulses present , no cyanosis . neuro: moves ext. DS: Data Data Completed and Pending Labs on day of discharge: Laboratory Results - last 24 hr 11/13/21 11/13/21 11/14/21 15:14 20:03 05:45 POC Glucose 140 H 145 H Ammonia 50 11/14/21 11/14/21 07:37 11:02 POC Glucose 83 161 H Ammonia Preliminary micro results at discharge 11/10/21 12:26 Blood Culture - Preliminary Blood - Venous No growth after 48 hours. 11/10/21 12:26 Blood Culture - Preliminary Blood - Venous No growth after 48 hours. Additional Comments Additional comments: 16:26 19:42 23:31 MCV ? ? ? MCH ? ? ? MCHC ? ? ? RDW ? ? ? Plt Count ? ? ? MPV ? ? ? Absolute Nucleated RBC ? ? ? Nucleated RBC % (auto) ? ? ? Anion Gap ? ? ? Estim Creat Clear Calc ? ? ? Estimated GFR ? ? ? POC Glucose ?96 ?95 ?105 Random Glucose ? ? ? Calcium ? 11/12/21 11/12/21 11/12/21 ? 05:51 05:51 07:11 MCV ?92.1 ? ? MCH ?30.0 ? ? MCHCB ?32.5 ? ? RDW ?15.5 ? ? Plt Count ?196 ? ? MPV ?9.2 L ? ? Absolute Nucleated RBC ?0.000 ? ? Nucleated RBC % (auto) ?0.0 ? ? Anion Gap ? ?19 ? Estim Creat Clear Calc ? ?113.0 ? Estimated GFR ? ?> 60 ? POC Glucose ? ? ?75 Random Glucose ? ?85 ? Calcium ? ?9.2 ? D ? 11/12/21 ? 11:53 MCV ? MCH ? MCHC ? RDW ? Plt Count ? MPV ? Absolute Nucleated RBC ? Nucleated RBC % (auto) ? Anion Gap ? Estim Creat Clear Calc ? Estimated GFR ? POC Glucose ?118 H Random Glucose ? Calcium ? MR/MR head/brain wo con IMPRESSION: No acute intracranial abnormality. Specifically, no evidence of acute infarction. No mass or hemorrhage is seen. Chronic encephalomalacia and gliosis noted in the right temporal lobe. Background changes of mild brain parenchymal volume loss with progression compared with prior studies. ?CT/CT head/brain wo con IMPRESSION: No acute intracranial process seen. ? Age-related cerebral volume loss. CT/CT chest wo con IMPRESSION: *Cardiomegaly, pulmonary vascular congestion, congestive heart failure, mild interstitial opacifications concerning for mild interstitial edema. ? *Subsegmental platelike atelectasis left upper lobe and left lingula base. ? *Soft tissue density 2.3 cm right retroareolar region of the breast, this require further investigation with follow-up DIAGNOSTIC MAMMOGRAM AND ULTRASOUND. ? *No lung mass or suspicious spiculated nodules, there are few scattered tiny nonspecific lung nodular densities measuring up to 3 mm or less. If patient is high-risk consider correlation with follow-up CT in 12 months. ? *Coronary calcifications. ? *Aneurysmal dilatation of ascending aorta 4.3 cm. This also can be followed up by CT scan in 12 months. ? (Referring physician staff is being called, to be alerted of the above findings and recommendations.) ? DC ? Fleischner criteria followed. Discharge Plan Discharge Patient Disposition: [facility] Discharge Diagnosis: Toxic metabolic encephalopathy [facility]errals: [facility] [Other] - 1 Week [facility] [Outside] - 1 Week Richard Castillo DO [Primary Care Provider] - 1 Week Discharge Medications: Continued polyvinyl alcohol [Artificial Tears (polyvin alc)] 1.4 % Drops 1 drp OPHTHALMIC (EYE) DAILY amlodipine 5 mg Tablet 5 mg PO DAILY aspirin 81 mg Tablet 81 mg PO DAILY aripiprazole 5 mg Tablet 5 mg PO DAILY acetaminophen 325 mg Capsule 650 mg PO Q4H PRN (Reason: Pain) bicalutamide 50 mg Tablet 50 mg PO DAILY bisacodyl 5 mg Suppository [address] DAILY lorazepam [Ativan] 2 mg/mL Solution 1 mg SUBLINGUAL BEDTIME PRN (Reason: Seizure Activity) divalproex 500 mg Tablet Extended Release 24 Hr 1,000 mg PO DAILY omeprazole 20 mg Capsule,Delayed Release(Dr/Ec) 20 mg PO DAILY furosemide [Lasix] 20 mg Tablet 20 mg PO QAM levalbuterol tartrate 45 mcg/actuation Hfa Aerosol Inhaler 2 puff INHALATION Q4-6H PRN (Reason: cough) sennosides [senna] 8.6 mg Tablet 8.6 mg PO BEDTIME PRN (Reason: Constipation) lactulose 10 gram/15 mL solution 30 ml PO DAILY Held ibuprofen 200 mg Tablet 200 mg PO Q6H PRN (Reason: Pain) Hold Instructions: Resume on 11/20/21. metformin 500 mg tablet 1 tab PO BID Hold Instructions: Resume on 11/27/21. Discharge Orders: Discharge Order (Routine); Ordered 11/14/21 Ordered By: Kenyetta Stein Diet: Advance to usual diet Activity on Discharge: As tolerated Stand Alone Forms: Patient Portal Discharge page Care Plan Goals: Patient was admitted for toxic metabolic encephalopathy: Workup including CT head , electrolytes seems fine except mild elevation of ammonia. Patient responded well to conservative therapy IV hydration, lactulose, supportive care and aspiration pneumonia calix given antibiotic. Currently patient is at his baseline. Seen by speech and Swallow and diet advanced( ground/mech soft). Initially also thought to have a pinpoint pupil for which she received Narcan with note significant response but subsequently with above supportive care patient seems to be improved. Seen by Neurology: encephlopathy seems to be improved , eeg: ct chest showed:Soft tissue density 2.3 cm right retroareolar region of the breast, this require further investigation with follow-up DIAGNOSTIC MAMMOGRAM AND ULTRASOUND. Health Concerns: as above. if any new episode of chest pain or shortness of breath or any new change in mental status patient should go to the nearest emergency room. Plan of Treatment: as above. Assessment: As above.
--- NOTE | 2021-11-14 13:13 | MHC.CM.PN ---
nik moore pts guardian notified of pts dc today at 4 back to [facility]
--- NOTE | 2021-11-14 13:50 | MHC.SL.SWA ---
Speech Pathologist Impression: Risk of Aspiration Due to: Neurological Condition Reduced Cognition Dysphasia Diet Status: CONTINUE on Ground/Mechanical/Altered (NDD2) with thin liquids, pills CRUSHED in PUREE. Liquid Consistency and Strategies for Safe Swallow: Liquid Intake Recommendation: Thin Liquid Intake Strategies: Small Sips Solid Food Consistency: Dietary Recommendations: Grnd/Mech Altered (NDD2) Additional Modifications to Solid Foods: Monitor impulsiveness with straw, may need cuing or pinching of straw to prevent large gulps of liquid. Oral Medication Intake: Crushed with Puree Please contact the pharmacy regarding appropriate crushable or liquid drug formulations that are available whenever modified delivery is recommended. Compensatory Strategies and Precautions to be Taken for Safe Swallow: Sitting Upright (90 deg) Small Bites and Sips Alternate Liquids/Solids Rate of Ingestion Change Oral Check Supervision While Eating and Drinking for Safe Swallow: Total Assistance (1:1) Foods to Avoid: [place] sticky or hard consistencies. Swallowing Recommended Treatments: Compens. Strategy Educat. Recommendation for Speech: Inpatient Speech Therapy Comment: Patient seen after breakfast briefly and during lunch today to assess toleration of recommended diet, re-assess swallow. Pt had eaten most of breakfast without difficulty, stated that he was full. Asked for paper and pencil, and when given wrote a series of scribbles on the page. Returned at lunch to observe patient. Patient was seated upright, listing slightly to his left, was repositioned to be more center on the bed. Patient took bites of ground texture, with mildly prolonged oral phase, mild delay of swallow, mild oral residual cleared with sip of liquid. Pt continues to need cues or straw pinch to prevent from chain sipping large swallows of liquid through straw. No clinical signs of aspiration on food or thin liquids, patient tolerating well. Continue to not frequent burping/dyspepsia. Frequency/Duration: Date Range for Service Req: Timeline to reassess: Lubrication Worker Clinican/Clinical Fellow: No Supervisory Statement: I have reviewed and agree with the student/clinical fellow's documentation: N/A Speech Language Pathologist: Celina Lozano M.A., CCC-HOSPITALITY SPECIALIST
[2021-11-14 13:59] LABS: COVID-19 Test Negative (Negative); IDNOW Serial# 16C4AD1C
--- NOTE | 2021-11-14 17:27 | PC.NURSE ---
report given to facility. HCP attempted to be contacted but no answer. allocation analyst for assessment and med pass and while MD at bedside to assess pt. POC maintained. IV's were removed prior to discharge, belongings with pt. report given to EMS. paperwork with EMS to be given to facility. safety and fall precautions in place. call moore within reach.
== END 2021-11-14 17:19 | disposition skilled nursing facility (03) | DRG 178 ==
LOC: HO.ED 15:37 → HO.EDOVER 18:06 → HO.IMC 20:38
PROVIDERS: Admitting Provider Internal Medicine; Emergency Provider Student in an Organized Health Care Education/Training Program; PCP Hospitalist; Visit Provider Internal Medicine
DX: J69.0 Pneumonitis due to inhalation of food and vomit (principal); J44.1 Chronic obstructive pulmonary disease with (acute) exacerbation; C61 Malignant neoplasm of prostate; G24.01 Drug induced subacute dyskinesia; F03.90 Unspecified dementia, unspecified severity, without behavioral disturbance, psychotic disturbance, mood disturbance, and anxiety; F25.9 Schizoaffective disorder, unspecified; I50.9 Heart failure, unspecified; I11.0 Hypertensive heart disease with heart failure; G40.909 Epilepsy, unspecified, not intractable, without status epilepticus; Z20.822 Contact with and (suspected) exposure to COVID-19; Z92.3 Personal history of irradiation; Z79.82 Long term (current) use of aspirin; Z79.899 Other long term (current) drug therapy
CPT/HCPCS: 36415; 70450; 70551; 71045; 71250; 74018; 80048; 80053; 80143; 80179; 80307; 81003; 82140; 82803; 82947; 83036; 83605; 83880; 84484; 85025; 85027; 85610; 87040; 87635; 92526; 92610; 93005; 94640; 95816; 99285; C1758; J1940; J2543; J2920

== ENCOUNTER 2021-12-01 14:46 | Outpatient (REF) | payer MEDICARE, MEDICAID, SELFPAY ==
--- NOTE | ~2021-12-01 | MM_ITS ---
EXAMINATION: MM DIAGNOSTIC DIGITAL BREAST TOMOSYNTHESIS, BILATERAL US DIAGNOSTIC ULTRASOUND BREAST, BILATERAL CLINICAL INFORMATION: Retroareolar fullness noted on CT chest. Canal, age 76. No prior formal breast imaging. COMPARISON: CT chest noncontrast 11/10/2021. TECHNIQUE: Digital breast tomosynthesis is performed in both the craniocaudal and mediolateral oblique views along with computer-aided detection (CAD). Synthesized 2D images are generated from the tomosynthesis. Additional left MLO view is provided. Ultrasound bilateral breasts is performed using grayscale imaging and color Doppler without and with harmonics. Imaging is targeted to the retroareolar and periareolar regions. FINDINGS: The breasts are heterogeneously dense, which may obscure small masses (ACR BI-RADS breast composition Category c). Breast tissue density is in the bilateral retroareolar regions. There is an asymmetric gynecomastia type pattern, slightly weaver on the right, both sides similar to the CT chest. There is no architectural abnormality or abnormal calcifications. Skin contours are smooth. No coarsening stromal markings. Ultrasound demonstrates bilateral retroareolar gynecomastia type pattern, greater on the right. No additional cystic or solid mass or focal duct ectasia. No skin thickening or edema tracking in soft tissue planes. Results are discussed with the patient and aide at time of visit. MM/MM tomosynthesis diagnostic BI IMPRESSION: Moderate bilateral asymmetric gynecomastia, greater on right. ASSESSMENT: BI-RADS 2: Benign RECOMMENDATION: Patient should be managed based on the clinical impression. If clinically indicated, further evaluation may be considered with surgical consult. Decision to proceed with biopsy should be based on clinical grounds and degree of clinical concern.
== END 2021-12-01 14:47 | disposition home or self-care (01) ==
LOC: HO.MAMMO 14:46
PROVIDERS: PCP Hospitalist; Visit Provider Hospitalist
DX: N62 Hypertrophy of breast (principal)
CPT/HCPCS: 76642; 77062; 77066

== ENCOUNTER 2022-03-07 10:31 | Inpatient (IN) | payer MEDICARE, MEDICAID, SELFPAY ==
[2022-03-07] VITALS (18 sets, daily range): BP systolic 100–133; BP diastolic 58–80; PULSE 62–94; RESP 7–40; TEMP 36.1–37.2; O2SAT 87–97; BMI 35.2
--- NOTE | ~2022-03-07 | XR_ITS ---
EXAMINATION: XR CHEST CLINICAL INFORMATION: Hypoxia, rule out pneumonia. COMPARISON: 11/10/2021 chest radiograph. TECHNIQUE: Frontal view of the chest was obtained. FINDINGS: No significant abnormality is noted involving the heart, lungs, mediastinum, bony thorax or soft tissues. XR/XR chest 1V IMPRESSION: No acute cardiopulmonary process.
--- NOTE | 2022-03-07 10:52 | ED_ITS ---
HPI - SOB/Dyspnea General Chief Complaint: Dyspnea Stated Complaint: Dif Breathing per EMS Time Seen by Provider: 03/07/22 10:46 Source: EMS and RN notes reviewed Mode of arrival: EMS Limitations: other (Patient is nonverbal) History of Present Illness HPI Narrative: 76-year-old male who was sent to the emergency department from his snf facility ([facility]) for evaluation of shortness of breath. Information came from the ED nurse who took report from paramedics. Since yesterday the patient has had increased shortness of breath. They did place him on 2 L of oxygen this morning. Patient became more dyspneic his O2 saturation went down to 88%. An ambulance was called the patient was given a DuoNeb and Solu-Cortef 100 mg IV. On arrival to the emergency department his O2 saturation is 92% on 2 L in his respiratory rate is 20. Patient's lung exam did reveal diffuse rhonchorous noises, no rales or wheezing. Related Data Home Medications Medication Instructions Recorded Confirmed acetaminophen 325 mg capsule 650 mg PO Q4H PRN Pain 01/19/20 12/21/21 amlodipine 5 mg tablet 5 mg PO DAILY 01/19/20 12/21/21 aripiprazole 5 mg tablet 5 mg PO DAILY 01/19/20 12/21/21 aspirin 81 mg tablet 81 mg PO DAILY 01/19/20 12/21/21 bicalutamide 50 mg tablet 50 mg PO DAILY 01/19/20 12/21/21 bisacodyl 5 mg rectal suppository 10 mg AZ DAILY 01/19/20 12/21/21 divalproex 500 mg tablet,extended 1,000 mg PO DAILY 01/19/20 12/21/21 release 24 hr furosemide 20 mg tablet (Lasix) 20 mg PO QAM 01/19/20 12/21/21 ibuprofen 200 mg tablet 200 mg PO Q6H PRN Pain 01/19/20 12/21/21 levalbuterol tartrate 45 2 puff inhalation Q4-6H PRN cough 01/19/20 12/21/21 mcg/actuation aerosol inhaler lorazepam 2 mg/mL injection 1 mg sublingual BEDTIME PRN 01/19/20 12/21/21 solution (Ativan) Seizure Activity omeprazole 20 mg capsule,delayed 20 mg PO DAILY 01/19/20 12/21/21 release polyvinyl alcohol 1.4 % eye drops 1 drp ophthalmic (eye) DAILY 01/19/20 12/21/21 (Artificial Tears (polyvinyl alcohol)) sennosides 8.6 mg tablet (senna) 8.6 mg PO BEDTIME PRN Constipation 01/19/20 12/21/21 metformin 500 mg tablet 1 tab PO BID 11/10/21 12/21/21 cholecalciferol (vitamin D3) 125 125 mcg PO DAILY 12/21/21 12/21/21 mcg (5,000 unit) tablet (Vitamin D3) doxycycline hyclate 50 mg capsule 1 cap PO DAILY 12/21/21 12/21/21 guaifenesin 100 mg/5 mL oral liquid 200 mg PO Q4H PRN Cough 12/21/21 12/21/21 sodium phosphates 19 gram-7 118 ml AZ DAILY PRN Constipation 12/21/21 12/21/21 gram/118 mL enema (Fleet Enema) Previous Rx's Medication Instructions Recorded amoxicillin 875 mg-potassium 1 tab PO BID #8 tabs 11/14/21 clavulanate 125 mg tablet lactulose 10 gram/15 mL oral 30 ml PO BID #237 mL 11/14/21 solution Allergies Allergy/AdvReac Type Severity Reaction Status Date / Time tuberculin, purified protein Allergy Unknown UNKNOWN Verified 12/21/21 13:21 deriva [Tuberculin,Purif.Prot.Deriv.] Review of Systems Review of Systems: Yes Unobtainable due to mental condition (Nonverbal) [facility] Past Medical History [facility] Narrative: Social history: The patient is a resident of [facility], he does not smoke cigarettes, drink alcohol use drugs. Medical History (Updated 03/07/22 @ 18:18 by Jesus Joyner MD) Cervicalgia CHF (congestive heart failure) COPD (chronic obstructive pulmonary disease) Dementia Diabetes type 2, controlled Dysphagia Epilepsy GERD (gastroesophageal reflux disease) Hypertension Muscle weakness (generalized) Schizo affective schizophrenia Spinal stenosis Family History Family History Mother Cancer Social History Social History Household Members: None Housing[facility] Housing Other:: [facility] Are you a primary career technical counselor to a significant other at home: No Do you presently have visiting nurse or other home services: Yes Unable to assess alcohol history related to: Unable to respond Alcohol intake: unknown Patient Tobacco Use Status: Never used Tobacco Smoked in Last 30 Days: No Second Hand Smoke Exposure: No Use of substances other than those prescribed or required for medical reasons: Unknown Advance Directives: No service: No Current occupational status: disabled Physical Exam Vital Signs: Vital Signs: Last Vital Signs Temp 98.1 F 03/07/22 17:44 Pulse 75 03/07/22 17:44 Resp 7 L 03/07/22 17:44 BP 114/67 03/07/22 17:44 Pulse Ox 90 L 03/07/22 17:44 O2 Del Method 03/07/22 17:44 O2 Flow Rate 3 03/07/22 17:44 Oxygen Flow Rate 21 03/07/22 16:08 BMI result Body Mass Index 35.2 Const: Other: Awake, alert, male patient, he is nonverbal, he does follow commands, 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 HEENT: Head: Yes normal to inspection, Yes normocephalic and Yes atraumatic Ears: external ears normal General nose exam: Normal external nose present Face and sinus: Yes normal facial exam Mouth: Normal oral and palatal mu cosa present Throat: Yes posterior oropharynx normal Eyes: General: appearance normal, both eyes and all related structures Pupils: Equal, round and reactive pupils present Neck: Neck: Yes normal visual inspection, Yes no lymphadenopathy, Yes trachea midline and Yes supple Chest: Chest palpation & inspection: normal inspection of the chest and normal palpation of entire chest wall Resp: Other: Diffuse rhonchi, no rales, no wheezing Cardio: Rate: regular rate Rhythm: regular rhythm Heart sounds: S1 normal heart sound present, S2 normal heart sound present and no murmurs GI: Inspection: Yes normal to inspection Palpation (GI): Soft to palpation, nontender and no guarding Auscultation: normal bowel sounds : General: Yes no CVA tenderness Back/Spine/Pelvis: Back: no CVA tenderness Skin: General skin exam: no rashes or lesions noted Neuro: Cranial nerves: Yes CN's II-XII intact bilaterally and Yes Equal, round and reactive pupils present Cognition (Neuro): normal cognition Motor exam (neuro): 5/5 motor strength present throughout Extrem: General: Yes normal to inspection Psych: Appearance: grossly normal Speech and movement: Normal speech and movement present Affect: normal affect Attitude: cooperative Thought process: Normal thought process present Thought content: Normal thought content present Course Course Course Narrative: 76-year-old male with a history of CHF and COPD who was sent in from his snf facility for evaluation of shortness of breath which began yesterday and got worse prior to coming to the emergency department. Patient was hypoxic with an O2 saturation of 88% on room air, he was given a DuoNeb and steroids IV by paramedics. At the time my evaluation the patient was afebrile, his respiratory rate was in the 20s, he did appear to be tachypneic. Lung exam did reveal diffuse rhonchi with no wheezing or rales. I did order laboratory evaluation to include CBC, CMP, BNP, troponin, lactic acid, blood cultures x2. Chest x-ray and EKG will be obtained. I ordered an albuterol nebulizer 5 mg x 1. 1417: Laboratory evaluation: CBC normal. PT/INR were normal. BNP elevated 490. Glucose elevated 161. COVID-19 and influenza were negative. High sensitive troponin I elevated 55.3 Radiology evaluation: Chest x-ray: Radiology reading : no acute pulmonary process as per the radiologist. The patient did improve after receiving the albuterol nebulizer however patient does have O2 saturation in the 88% range on 4 L via nasal cannula. T I did add a D-dimer onto the patient's labs. I will also check a D-dimer. Patient's troponin was elevated I will get a repeat troponin at 15:00 hours. 1805: D-dimer was below detectable limits. Repeat troponin did not increase. The patient had a period of lethargy. His pupils were pinpoint was given Narcan 2 mg IV with no response. ABG revealed pH is 7.27 and pCO2 of 96. I did discuss the management with our fryline attendant Dr. Nuno he recommended BiPAP 20/5, room air (21%) for 1 hour and then repeating the blood gas. He also recommended Diamox 500 mg IV. Repeat ABG revealed a pH of 7.43 and a pCO2 of 63. The patient was more awake and alert and was placed on 4 L via nasal cannula with O2 saturations of 92% range. Dr. Stemp recommends that the patient be admitted to the hospitalist and that the patient be placed on nighttime BiPAP 03/05 on room air. He also recommended Diamox 500 mg IV b.i.d. and checking a venous blood gas daily. Medications Administered Discontinued Medications Generic Name Dose Route Start Last Admin Trade Name Freq PRN Reason Stop Dose Admin Acetazolamide 500 mg 03/07/22 16:15 03/07/22 17:03 Acetazolamide Sodium 500 Mg Vial IVPUSH 03/07/22 16:16 500 mg ONCE STA Administration Albuterol Sulfate 5 mg 03/07/22 10:53 03/07/22 11:15 Albuterol Sulfate (0.083%) 2.5 Mg/3 Ml Vial.Neb INHALE 03/07/22 10:54 5 mg ONCE ONE Administration Furosemide 40 mg 03/07/22 15:22 03/07/22 15:52 Furosemide 40 Mg/4 Ml Vial IVPUSH 03/07/22 15:23 40 mg STAT STA Administration Protocol Naloxone HCl 2 mg 03/07/22 15:10 03/07/22 15:24 Naloxone Hcl 2 Mg/2 Ml Syringe IVPUSH 03/07/22 15:11 2 mg ONCE ONE Administration Critical Care Time Critical Care Time Critical Care Time: Yes Total Critical Care Time: 55 Attestation: Critical Care: The patient was critically ill with a high probability of imminent or life threatening deterioration. I spent greater than 30 minutes of d iscontinuous time evaluating the patient,delivering critical care at the bedside, discussing and evaluating pertinent data with consultants. Critical care time does not include time spent performing separately billable procedures or teaching. Total time spent performing critical care was 55 minutes. Discharge Plan Discharge Patient Disposition: Admitted As Inpatient Prescriptions: No Action polyvinyl alcohol [Artificial Tears (polyvin alc)] 1.4 % Drops 1 drp OPHTHALMIC (EYE) DAILY amlodipine 5 mg Tablet 5 mg PO DAILY aspirin 81 mg Tablet 81 mg PO DAILY aripiprazole 5 mg Tablet 5 mg PO DAILY acetaminophen 325 mg Capsule 650 mg PO Q4H PRN (Reason: Pain) bicalutamide 50 mg Tablet 50 mg PO DAILY bisacodyl 5 mg Suppository 10 mg AZ DAILY lorazepam [Ativan] 2 mg/mL Solution 1 mg SUBLINGUAL BEDTIME PRN (Reason: Seizure Activity) divalproex 500 mg Tablet Extended Release 24 Hr 1,000 mg PO DAILY ibuprofen 200 mg Tablet 200 mg PO Q6H PRN (Reason: Pain) Hold Instructions: Resume on 11/20/21. omeprazole 20 mg Capsule,Delayed Release(Dr/Ec) 20 mg PO DAILY furosemide [Lasix] 20 mg Tablet 20 mg PO QAM levalbuterol tartrate 45 mcg/actuation Hfa Aerosol Inhaler 2 puff INHALATION Q4-6H PRN (Reason: cough) sennosides [senna] 8.6 mg Tablet 8.6 mg PO BEDTIME PRN (Reason: Constipation) doxycycline hyclate 50 mg capsule 1 cap PO DAILY guaifenesin 100 mg/5 mL Liquid 200 mg PO Q4H PRN (Reason: Cough) Fleet Enema 19-7 gram/118 mL Enema 118 ml AZ DAILY PRN (Reason: Constipation) cholecalciferol (vitamin D3) [Vitamin D3] 125 mcg (5,000 unit) Tablet 125 mcg PO DAILY metformin 500 mg tablet 1 tab PO BID Hold Instructions: Resume on 11/27/21. amoxicillin-pot clavulanate 875-125 mg tablet 1 tab PO BID Qty: 8 0RF lactulose 10 gram/15 mL solution 30 ml PO BID Qty: 237 0RF
--- NOTE | 2022-03-07 10:53 | ECG_ITS ---
Test Reason : Difficulty Breathing Blood Pressure : / mmHG Vent. Rate : 081 BPM Atrial Rate : 074 BPM P-R Int : 138 ms QRS Dur : 112 ms QT Int : 400 ms P-R-T Axes : 021 -60 -71 degrees QTc Int : 464 ms Sinus rhythm with frequent , and consecutive Premature ventricular complexes Left axis deviation Incomplete right bundle branch block Nonspecific ST and T wave abnormality Prolonged QT Abnormal ECG When compared with ECG of 10-NOV-2021 12:07, Premature ventricular complexes are now Present Referred By: Jesus Joyner Electronically Signed By:ESDRAS LEE MD
--- NOTE | 2022-03-07 11:02 | PC.NURSE ---
patient alert to baseline- pt nonverbal at baseline but understands and can answer y/n questions, 20 in hand by ems, lungs have rhonchi throughout in/ex wheezing, traffic monitor specialist applied nsr with pvcs noted, pt rr rate 40s- provider aware, tech to obtain ekg and labs, will continue to monitor
--- NOTE | 2022-03-07 11:13 | PC.NURSE ---
rt called for updraft
--- NOTE | 2022-03-07 11:13 | PC.NURSE ---
chest xr obtianed
[2022-03-07] MEDS: Albuterol Sulfate (0.083%) 2.5 MG/3 ML VIAL.NEB 5 MG INHALE (11:15)
--- NOTE | 2022-03-07 11:55 | PC.NURSE ---
Pt resting on stretcher at this time with 5L nasal cannula. Pt is nonverbal but can confirm date of and name. Pt denies pain. Respiratory and this RN attempted to suction pt, no secretions were able to be suctioned
[2022-03-07 12:10] LABS: Basophils Percent Auto 0.2 % (0-2); Hematocrit 49.4 % (42.0-52.0); Hemoglobin 15.6 g/dl (14.0-18.0); Imm Gran Abs Auto 0.05 X10*3/uL (0.00-0.03); Lymphocytes Absolute Auto 0.9 X10*3/uL (1.2-4.9); MANUAL DIFF FLAG SCAN; Mean Corpuscular HGB Conc 31.6 g/dl (31.0-36.0); Mean Corpuscular Hemoglobin 30.2 pg (27.0-33.0); Mean Corpuscular Volume 95.7 fL (80.0-98.0); Monocytes Absolute Auto 0.2 X10*3/uL (0.1-1.2); Monocytes Percent Auto 4.3 % (2-11); Neutrophils Absolute Auto 3.9 x10*3/uL (2.0-8.3); Neutrophils Percent Auto 77.5 % (45-73); PLT CLUMP 1; Red Blood Count 5.16 X10*6/uL (4.60-5.80); Red Cell Distribution Width 14.4 % (11.0-16.0); SCAN SMEAR FLAG 1
[2022-03-07 12:19] LABS: Prothrombin Time 11.5 SEC (10.0-13.1)
[2022-03-07 12:22] LABS: Partial Thromboplastin Time 41.1 SEC (26.0-36.4)
[2022-03-07 12:26] LABS: Lactic Acid 0.9 mmol/L (0.5-2.0)
[2022-03-07 12:30] LABS: Alanine Aminotransferase 42 U/L (0-40); Albumin Level 4.4 g/dL (3.5-5.0); Alkaline Phosphatase 78 U/L (39-117); Anion Gap 11 (12-20); Aspartate Amino Transferase 26 U/L (5-37); Bilirubin Total 0.3 mg/dL (0.0-1.0); Blood Urea Nitrogen 19 mg/dL (9-16); Calcium 9.4 mg/dL (8.4-10.2); Carbon Dioxide 38 mmol/L (22-29); Chloride 99 mmol/L (96-108); Estimated Glomerular Filt Rate > 60; Glucose Random 161 mg/dL (60-115); Lipase 16 U/L (8-78); Potassium 4.6 mmol/L (3.3-5.1); Sodium 143 mmol/L (135-145); Total Protein 7.1 g/dL (6.5-8.0)
[2022-03-07 12:37] LABS: B Type Natriuretic Peptide 490 pg/mL (<100); Troponin-I High Sensitivity 55.3 ng/L (<3.5-35.0)
[2022-03-07 12:38] LABS: COVID-19 Test Negative (Negative); IDNOW Serial# 55D5AD1C; IDNOW Serial# 9DB6401D; Influenza A Negative (Negative); Influenza B2 Negative (Negative)
[2022-03-07 13:12] LABS: Platelet Count 136 X10*3/uL (160-400); White Blood Count 5.1 X10*3/uL (4.8-10.8)
[2022-03-07 13:13] LABS: SLIDE REVIEW VERIFIED
[2022-03-07 14:37] LABS: D Dimer High Sensitivity < 150 NG/ML
[2022-03-07 14:46] LABS: ABG Base Excess 12.5 mmol/L; ABG HCO3 44 mmol/L (22-26); ABG pCO2 96 mmHg (32-45); ABG pH 7.27 (7.35-7.45); ABG pO2 85 mmHg (83-108)
[2022-03-07] MEDS: Naloxone HCl 2 MG/2 ML SYRINGE IVPUSH (15:24)
--- NOTE | 2022-03-07 15:48 | W.PM.CCCN ---
History of Present Illness Data of Consult Service Date: 03/07/22 Requesting physician: Jesus Joyner Primary Care Provider: Richard Castillo, HPI Dr. Joyner asked me to see Mr. Lee [facility] of AMS w hypercarbia. Briefly, the patient is a 76 yo M with PMHx that includes advanced prostate cancer, COPD, CHF, DM, HTN, dementia, dysphagia.? Nonverbal at baseline, but he eats.? Review of old records shows that his serum bicarb runs mildly elevated (suggesting that he is a mild CO2 retainer).? On previous visits here has had pinpoint pupils and also has had elevated ammonia levels. BIBA from [facility] of dyspnea.? Was Sat?ing 88% on 2L NC at the home.? On arrival to ED, Sat was 92% on 2L, RR 20, had diffuse rhoci, no wheezing.? Pupils were pinpoint). ?Chest x-ray showed mild chronic lung disease, and possibly early vascular congestion, possibly a tiny left pleural effusion.. ?ABG showed 7.27/96/+12.? BNP is 490; only other BNP in the chart was 87 this past October. On my exam in the ED, the patient has eyes dark closed and he is nonverbal.? He does not respond to me.? He is on BiPAP 20/5/21% respiratory rate averages about 16, tidal volumes of about 550.cc.? Sat is 94%.? Heart rate about 90, blood pressure 123/70.? Afebrile.? No jugular venous distention with the head of the bed at about 60 degrees.? Good chest rise and good air movement on auscultation.? Mild diffuse rhonchi; no wheezes, normal expiratory phase.? No peripheral edema. IMPRESSION: This is a 76 year old gentleman with underlying moderate-severe dementia, advanced prostate cancer, history of COPD and CHF.? May well have chronic hypercarbic respiratory failure. 1. Acute hypercarbic respiratory failure. 2. Either CHF or COPD exacc. Robertson trying Narcan, and would also check his ammonia level.? Suggest Lasix and Diamox.? Recheck ABG after one hour on BiPAP.? Given his rhonchi and poss COPD exacerbation, a case could be made for giving him 5 days of Zithromax. On general principles, intubation and life support are not appropriate and have been known for decades to be nonbeneficial for patients such as this.? All efforts should be made to change his future code status to DNR/DNI (realizing that is not germane to the current situation). [facility] Past Medical History Medical History (Updated 03/07/22 @ 10:59 by Miriam Munoz RN) Cervicalgia CHF (congestive heart failure) COPD (chronic obstructive pulmonary disease) Dementia Diabetes type 2, controlled Dysphagia Epilepsy GERD (gastroesophageal reflux disease) Hypertension Muscle weakness (generalized) Schizo affective schizophrenia Spinal stenosis Family History Family History Mother Cancer Social History Social History Household Members: None Housing: Group Home Housing Other:: [facility] Are you a primary career technical supervisor to a significant other at home: No Do you presently have visiting nurse or other home services: Yes Unable to assess alcohol history related to: Unable to respond Alcohol intake: unknown Patient Tobacco Use Status: Never used Tobacco Smoked in Last 30 Days: No Second Hand Smoke Exposure: No Use of substances other than those prescribed or required for medical reasons: Unknown Advance Directives: No service: No Current occupational status: disabled Meds Allergies Allergy/AdvReac Type Severity Reaction Status Date / Time tuberculin, purified protein Allergy Unknown UNKNOWN Verified 12/21/21 13:21 deriva [Tuberculin,Purif.Prot.Deriv.] Home Medications Medication Instructions Recorded Confirmed Last Taken Type acetaminophen 325 mg capsule 650 mg PO Q4H PRN Pain 01/19/20 12/21/21 Unknown History amlodipine 5 mg tablet 5 mg PO DAILY 01/19/20 12/21/21 Unknown History aripiprazole 5 mg tablet 5 mg PO DAILY 01/19/20 12/21/21 Unknown History aspirin 81 mg tablet 81 mg PO DAILY 01/19/20 12/21/21 Unknown History bicalutamide 50 mg tablet 50 mg PO DAILY 01/19/20 12/21/21 Unknown History bisacodyl 5 mg rectal suppository 10 mg NC DAILY 01/19/20 12/21/21 Unknown History divalproex 500 mg tablet,extended 1,000 mg PO DAILY 01/19/20 12/21/21 Unknown History release 24 hr furosemide 20 mg tablet (Lasix) 20 mg PO QAM 01/19/20 12/21/21 Unknown History ibuprofen 200 mg tablet 200 mg PO Q6H PRN Pain 01/19/20 12/21/21 Unknown History levalbuterol tartrate 45 2 puff inhalation Q4-6H PRN cough 01/19/20 12/21/21 Unknown History mcg/actuation aerosol inhaler lorazepam 2 mg/mL injection 1 mg sublingual BEDTIME PRN 01/19/20 12/21/21 Unknown History solution (Ativan) Seizure Activity omeprazole 20 mg capsule,delayed 20 mg PO DAILY 01/19/20 12/21/21 Unknown History release polyvinyl alcohol 1.4 % eye drops 1 drp ophthalmic (eye) DAILY 01/19/20 12/21/21 Unknown History (Artificial Tears (polyvinyl alcohol)) sennosides 8.6 mg tablet (senna) 8.6 mg PO BEDTIME PRN Constipation 01/19/20 12/21/21 Unknown History metformin 500 mg tablet 1 tab PO BID 11/10/21 12/21/21 Unknown History cholecalciferol (vitamin D3) 125 125 mcg PO DAILY 12/21/21 12/21/21 Unknown History mcg (5,000 unit) tablet (Vitamin D3) doxycycline hyclate 50 mg capsule 1 cap PO DAILY 12/21/21 12/21/21 Unknown History guaifenesin 100 mg/5 mL oral liquid 200 mg PO Q4H PRN Cough 12/21/21 12/21/21 Unknown History sodium phosphates 19 gram-7 118 ml NC DAILY PRN Constipation 12/21/21 12/21/21 Unknown History gram/118 mL enema (Fleet Enema) Physical Exam Vital Signs: Vital Signs: Last Vital Signs Temp 98.9 F 03/07/22 14:06 Pulse 91 03/07/22 14:06 Resp 15 03/07/22 15:23 BP 123/70 03/07/22 14:06 Pulse Ox 87 L 03/07/22 14:06 O2 Del Method 03/07/22 14:06 O2 Flow Rate 4.5 03/07/22 14:06 Oxygen Flow Rate 2 03/07/22 10:46 BMI result Body Mass Index 35.2 Results Labs CBC & Chem 7: 03/07/22 11:52 03/07/22 11:53 Labs: Short CBC 03/07/22 Range/Units 11:52 WBC 5.1 (4.8-10.8) X10*3/uL Hgb 15.6 (14.0-18.0) g/dl Hct 49.4 (42.0-52.0) % Plt Count 136 L D (160-400) X10*3/uL BMP 03/07/22 11:53 Sodium 143 Potassium 4.6 Chloride 99 Carbon Dioxide 38 H BUN 19 H Creatinine 0.76 Calcium 9.4 Liver Function 03/07/22 Range/Units 11:53 Total Bilirubin 0.3 (0.0-1.0) mg/dL AST 26 (5-37) U/L ALT 42 H (0-40) U/L Alkaline Phosphatase 78 (39-117) U/L Albumin 4.4 (3.5-5.0) g/dL
[2022-03-07] MEDS: Furosemide 40 MG/4 ML VIAL IVPUSH (15:52)
--- NOTE | 2022-03-07 15:57 | PC.NURSE ---
Pt ABG came back, respiratory placed on bipap and Dr. Nuno was consulted
[2022-03-07 16:02] LABS: Ammonia 37 umol/L (13-55)
[2022-03-07 16:17] LABS: Troponin-I High Sensitivity 54.9 ng/L (<3.5-35.0)
[2022-03-07 16:58] LABS: ABG Base Excess 14.5 mmol/L; ABG HCO3 42 mmol/L (22-26); ABG pCO2 63 mmHg (32-45); ABG pH 7.43 (7.35-7.45); ABG pO2 57 mmHg (83-108)
[2022-03-07] MEDS: acetaZOLAMIDE sodium 500 MG VIAL IVPUSH ×2 (17:03→22:05)
[2022-03-07 18:07] LABS: Appearance Urine Clear; Color Urine Yellow; Glucose Urine UA Negative (Negative); Leukocyte Esterase Urine Negative (Negative); Nitrite Urine Negative (Negative); Specific Gravity - Urine 1.015 (1.005-1.025); Urine Blood Negative (Negative); Urine Ketones Negative (Negative); Urine Protein Trace mg/dL (Neg-Trace)
--- NOTE | 2022-03-07 18:42 | PC.NURSE ---
awaiting medication list faxed from [facility]. Called at 1824 to request
--- NOTE | 2022-03-07 18:48 | PHA.MEDREC ---
Pharmacy Consult ? Medication Reconciliation Pharmacy has completed the medication reconciliation. Used list from [facility]
[2022-03-07 19:40] LABS: ABG Base Excess 15.2 mmol/L; ABG HCO3 45 mmol/L (22-26); ABG pCO2 82 mmHg (32-45); ABG pH 7.34 (7.35-7.45); ABG pO2 68 mmHg (83-108)
--- NOTE | 2022-03-07 21:15 | P.PNCC_ITS ---
Critical Care Event Note Summary Date of Service: 03/07/22 Code activated: No Narrative: After the repeat ABG at 1650 (with pCO2 down to 63), the patient was put on 3L NC oxygen.? Subsequent ABG at 19:34 showed 7.34/82/68/+15.? Ie. pCO2 ivis to 82 (as I predicted in my consult note). With a pCO2 at that level, the patient cannot be admitted to the hospitalist service on the floor.? We have no beds in our ICU, and the ED will not find an outlying hospital to transfer him to (I called [facility] earlier today).? So he?ll need to stay in the ED. I?ve reviewed the patient in-depth at the bedside this evening with both the respiratory therapist and with Dr. Mercedes.? 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 The plan is to keep him on BiPAP overnight.? On BiPAP 08/17/2019 2%, tidal volumes are running in the 550 range, respiratory rate about 16, and sat about 90%.? Anything 88% and above is okay by me.? And any tidal volumes above 450 are okay.? Unless necessary for some reason to repeat a blood gas before that, he will have a VBG in the morning, along with his regular morning labs.? (The patient is a difficult phlebotomy stick; if no venous blood gas can be drawn, he has an easy stick for an ABG.) Tonight I will also give him another dose of Diamox (he got one dose at 4pm).? IMO, it will prove very difficult to keep his pCO2 down unless we can fix his metabolic alkalosis.? I?ll also give him some potassium, which should help. I would anticipate that his pCO2 will be improved in the morning, and he can then be admitted to the hospitalist service.? He can then be given more BiPAP outside the ?rescue BiPAP? paradigm. REZA Patrick will be available in house thru the night for further consultation if nec. Critical Care Time (minutes): 40 Critical Care Time Critical Care Time (minutes): 60
[2022-03-07] MEDS: Potassium Chloride/H20 10 MEQ/100 ML PIGGYBACK 100 MEQ IV ×2 (22:04→23:50)
[2022-03-07 23:14] LABS: ABG Refer to POC result
[2022-03-08] VITALS (18 sets, daily range): BP systolic 94–133; BP diastolic 61–89; PULSE 61–97; RESP 12–28; TEMP 35.8–36.7; O2SAT 89–94
[2022-03-08] MEDS: Potassium Chloride/H20 10 MEQ/100 ML PIGGYBACK 100 MEQ IV ×2 (01:22→03:03)
[2022-03-08 01:36] LABS: ABG Refer to POC result
[2022-03-08 01:37] LABS: ABG Refer to POC result
[2022-03-08 05:48] LABS: Venous Blood Gas Refer to POC result
[2022-03-08 05:48] LABS: VBG Base Excess 6.8 mmol/L; VBG HCO3 28 mmol/L (22-26); VBG pCO2 32 mmHg; VBG pH 7.55 (7.32-7.43); VBG pO2 143 mmHg
[2022-03-08 06:01] LABS: Anion Gap 15 (12-20); Blood Urea Nitrogen 25 mg/dL (9-16); Calcium 9.2 mg/dL (8.4-10.2); Carbon Dioxide 29 mmol/L (22-29); Chloride 102 mmol/L (96-108); Creatinine Clr Calc Pharmacy 85.4; Estimated Glomerular Filt Rate > 60; Glucose Random 111 mg/dL (60-115); Magnesium 2.4 mg/dL (1.6-2.6); Potassium 4.4 mmol/L (3.3-5.1); Sodium 142 mmol/L (135-145)
[2022-03-08] MEDS: acetaZOLAMIDE sodium 500 MG VIAL IVPUSH ×3 (06:02→20:57)
--- NOTE | 2022-03-08 06:16 | PC.NURSE ---
Multiple attempts to obtain blood and establish a second IV line failed by two RN's and two ED techs. aware.
--- NOTE | 2022-03-08 06:20 | PC.NURSE ---
patient was incontinent of urine ,bed bath given ,bedding change ,mouth care done ,pt is sleeping ,call moore in within reach .
--- NOTE | 2022-03-08 07:08 | PM.EVENT ---
Event Note Date of Service: 03/08/22 Event Note: Blood gas is all better this morning. The patient can be admitted to the hospitalist service. I cut his Diamox down to 500 mg bid and wrote for it to be discontinued at midnight tonight. He should have another venous blood gas with his morning labs tomorrow morning.
--- NOTE | 2022-03-08 07:46 | PC.NURSE ---
sr on monitor w occasional pvc, RT removed from bipap, pt awoke and reports breathing improved, occasional wet cough, alert, c/o chest wall pain w cough, medicated w diamox
--- NOTE | 2022-03-08 11:18 | PM.IMHP ---
History of Present Illness Date of Service: 03/08/22 Attending physician on admission: [facility] Chief Complaint: SOB Pt is a 66-olei-zyp-male with a PMH significant for COPD, CHF, schizophrenia, epilepsy, prostate cancer, HTN, and tardive dyskenisia, who was sent to the ED from his SNF ([facility]) for SOB. Patient is nonverbal at baseline but able to follow commands; history is mostly taken from records and practitioners. SOB began yesterday, worsening throughout the day until patient became dyspneic and hypoxic with a sat of 88%. EMS gave him a DuoNeb and Solu-Cortef 100mg IV. In the ED initial presentation of pt was afebrile and non tachypneic. Lung exam did reveal diffuse rhonchi. Labs were significant for normal CBC and PT/INR. BNP was elevated at 490. High sensitivity troponin was elevated at 55.3 with a repeat plateaued at 54.9. CXR found no acute pulmonary processes. D-dimer was negative. Patient received albuterol nebulizer, which helped some. At 18:05 patient had a period of lethargy with pinpoint pupils. Was given 2 mg IV Narcan with no response. ABG revealed pH of 7.27 and pCO2 of 96. 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 Repeat ABG showed pH 7.43 and pCO2 of 63. Dr. Nuno recommended Diamox 500mg bid and BiPAP at night. Pt will be admitted to telemetry for managament of COPD exacerbation. Review of Systems Review of Systems: Unable to obtain. [facility] Medical History (Updated 03/09/22 @ 11:07 by Brad Alvarado MD) Cervicalgia CHF (congestive heart failure) COPD (chronic obstructive pulmonary disease) Dementia Diabetes type 2, controlled Dysphagia Epilepsy GERD (gastroesophageal reflux disease) Hypertension Muscle weakness (generalized) Pneumonia due to Acinetobacter species Respiratory failure with hypoxia and hypercapnia Schizo affective schizophrenia Spinal stenosis Family History Mother Cancer Social History Household Members: None Housing: [facility] Housing Other:: non verbal Are you a primary critical care specialist to a significant other at home: No Unable to assess alcohol history related to: Unable to respond Alcohol intake: unknown Patient Tobacco Use Status: Never used Tobacco Smoked in Last 30 Days: No Second Hand Smoke Exposure: No Use of substances other than those prescribed or required for medical reasons: Unable to respond Currently Displaying Signs/Symptoms of Drug Intoxication Withdrawal: No Advance Directives: No Recently lost weight without trying: Unsure Nutrition Risks: Difficulty chewing and Difficulty swallowing service: No Current occupational status: disabled Meds Allergies Allergy/AdvReac Type Severity Reaction Status Date / Time tuberculin, purified protein Allergy Unknown UNKNOWN Verified 12/21/21 13:21 deriva [Tuberculin,Purif.Prot.Deriv.] Active Medications: Current Medications Acetaminophen (Acetaminophen 325 Mg Tablet) 650 mg PO Q6H PRN PRN Reason: Pain, Mild (Pain Scale 1-3) Acetazolamide (Acetazolamide Sodium 500 Mg Vial) 500 mg IVPUSH Q12H [facility] Stop: 03/08/22 23:59 Last Admin: 03/08/22 07:44 Dose: 500 mg Al Hydroxide/Mg Hydroxide (Magnesium Hydrox/Alum Hydrox 30 Ml Oral.Susp) 20 ml PO Q4H PRN PRN Reason: Dyspepsia Docusate Sodium (Docusate Sodium 100 Mg Capsule) 100 mg PO DAILY PRN PRN Reason: Constipation Enoxaparin Sodium (Enoxaparin Sodium 40 Mg/0.4 Ml Syringe) 40 mg SUBCUT Q24H [facility] Non-Formulary Medication (Dextran 70-Hypromellose (Pf) [Artificial Tears (Pf)]) 1 drop EYE-BOTH Q8H PRN PRN Reason: Dry Eyes Ondansetron HCl (Ondansetron Hcl 4 Mg/2 Ml Vial) 4 mg IVPUSH Q8H PRN PRN Reason: Nausea and Vomiting Pharmacy Consult (Consult Rx Perform Med Rec) 1 each MISCELLANE ONCE PRN PRN Reason: Consult order Sodium Chloride (0.9 % Sodium Chloride Flush 3 Ml Syringe) 3 ml IVFLUSH QSHIFT [facility] Home Medications Medication Instructions Recorded Confirmed Last Taken Type acetaminophen 325 mg capsule 650 mg PO Q4H PRN Pain 01/19/20 03/07/22 Unknown History amlodipine 5 mg tablet 5 mg PO DAILY 01/19/20 03/07/22 Unknown History aspirin 81 mg tablet 81 mg PO DAILY 01/19/20 03/07/22 Unknown History bicalutamide 50 mg tablet 50 mg PO DAILY 01/19/20 03/07/22 Unknown History bisacodyl 5 mg rectal suppository 10 mg MS DAILY 01/19/20 03/07/22 Unknown History divalproex 500 mg tablet,extended 1,000 mg PO DAILY 01/19/20 03/07/22 Unknown History release 24 hr furosemide 20 mg tablet (Lasix) 20 mg PO QAM 01/19/20 03/07/22 Unknown History ibuprofen 200 mg tablet 600 mg PO Q6H PRN Pain 01/19/20 03/07/22 Unknown History levalbuterol tartrate 45 2 puff inhalation Q4-6H PRN cough 01/19/20 03/07/22 Unknown History mcg/actuation aerosol inhaler lorazepam 2 mg/mL injection 1 mg sublingual BEDTIME PRN 01/19/20 03/07/22 Unknown History solution (Ativan) Seizure Activity omeprazole 20 mg capsule,delayed 20 mg PO DAILY 01/19/20 03/07/22 Unknown History release sennosides 8.6 mg tablet (senna) 8.6 mg PO BEDTIME PRN Constipation 01/19/20 03/07/22 Unknown History doxycycline hyclate 50 mg capsule 1 cap PO DAILY 12/21/21 03/07/22 Unknown History guaifenesin 100 mg/5 mL oral liquid 200 mg PO Q4H PRN Cough 12/21/21 03/07/22 Unknown History sodium phosphates 19 gram-7 118 ml MS DAILY PRN Constipation 12/21/21 03/07/22 Unknown History gram/118 mL enema (Fleet Enema) aluminum-mag hydroxide-simethicone 20 ml PO Q4H PRN Dyspepsia 03/07/22 03/07/22 Unknown History 200 mg-200 mg-20 mg/5 mL oral susp dextran 70-hypromellose (PF) 0.1 1 drp ophthalmic (eye) Q8H PRN Dry 03/07/22 03/07/22 Unknown History %-0.3 % eye drops in a dropperette Eyes (Artificial Tears (PF)) Physical Exam Vital Signs and Narrative: Vital Signs: Last Vital Signs Temp 97.4 F 03/08/22 08:21 Pulse 90 03/08/22 08:21 Resp 12 03/08/22 08:21 BP 117/76 03/08/22 08:21 Pulse Ox 91 L 03/08/22 08:21 O2 Del Method 03/08/22 08:21 O2 Flow Rate 2 03/08/22 08:21 FiO2 22 03/08/22 04:00 Oxygen Flow Rate 21 03/07/22 16:08 BMI result Body Mass Index 35.2 Constitutional: Awake and alert. Nonverbal but able to follow commands. Tardive dyskenisia of the mouth. Mental Status: Oriented to person, place and time. Eyes: Pupils are equal, round, and reactive to light. Ear, Nose, and Throat: Oropharynx clear, mucous membranes moist. Ears and nose without deformities. Trachea midline. Respiratory: Diffuse rhonchi bilaterally. No wheezing or rales. Cardiovascular: S1, S2 regular. No murmurs, rubs, or gallops. Gastrointestinal: Abdomen soft, non-tender, non-distended. Normal bowel sounds. Neurologic: Cranial nerves II-XI are grossly intact. No focal neurological deficits. Moves all extremities spontaneously. Skin: No rashes of lesions. Musculoskeletal: No cyanosis or clubbing. Extremities: No edema. Psychiatric: Normal mood and affect. Results Labs CBC and Chem 7: 03/07/22 11:52 03/08/22 05:38 Labs: Laboratory Results - last 24 hr 03/07/22 03/07/22 03/07/22 11:52 11:52 11:52 MCV 95.7 MCH 30.2 MCHC 31.6 RDW 14.4 Plt Count 136 L D MPV Not Reportable Immature Gran % (Auto) 1.0 H Neut % (Auto) 77.5 H Lymph % (Auto) 17.0 L [place] % (Auto) 4.3 Eos % (Auto) 0.0 Baso % (Auto) 0.2 Lymph # (Auto) 0.9 L [place] # (Auto) 0.2 Eos # (Auto) 0.0 Baso # (Auto) 0.0 Abs Immat Gran (auto) 0.05 H Absolute Neuts (auto) 3.9 Absolute Nucleated RBC 0.000 Nucleated RBC % (auto) 0.0 Smear Tech's Comments VERIFIED PT 11.5 INR 1.0 APTT 41.1 H D-Dimer High Sensitivty < 150 O2 Saturation ABG pH at Pt Temp ABG pCO2 at Pt Temp ABG pO2 at Pt Temp ABG HCO3 ABG Base Excess (Actual) VBG pH VBG pCO2 VBG pO2 VBG HCO3 VBG O2 Saturation VBG Base Excess Anion Gap Estim Creat Clear Calc Estimated GFR Random Glucose Lactic Acid Calcium Phosphorus Magnesium Total Bilirubin AST ALT Alkaline Phosphatase Ammonia Troponin I High Sens B-Natriuretic Peptide Total Protein Albumin Lipase Urine Color Urine Appearance Urine pH Ur Specific [place] Urine Protein Urine Glucose (UA) Urine Ketones Urine Blood Urine Nitrite Ur Leukocyte Esterase COVID-19 (COLIN) COVID-19 Clin Com Influenza Type A (JOHANNY) Negative Influenza Type B (JOHANNY) Negative Influenza A & B Note See Note 03/07/22 03/07/22 03/07/22 11:52 11:53 11:53 MCV MCH MCHC RDW Plt Count MPV Immature Gran % (Auto) Neut % (Auto) Lymph % (Auto) [place] % (Auto) Eos % (Auto) Baso % (Auto) Lymph # (Auto) [place] # (Auto) Eos # (Auto) Baso # (Auto) Abs Immat Gran (auto) Absolute Neuts (auto) Absolute Nucleated RBC Nucleated RBC % (auto) Smear Tech's Comments PT INR APTT D-Dimer High Sensitivty O2 Saturation ABG pH at Pt Temp ABG pCO2 at Pt Temp ABG pO2 at Pt Temp ABG HCO3 ABG Base Excess (Actual) VBG pH VBG pCO2 VBG pO2 VBG HCO3 VBG O2 Saturation VBG Base Excess Anion Gap 11 L Estim Creat Clear Calc 82.0 Estimated GFR > 60 Random Glucose 161 H Lactic Acid 0.9 Calcium 9.4 Phosphorus Magnesium Total Bilirubin 0.3 AST 26 ALT 42 H Alkaline Phosphatase 78 Ammonia Troponin I High Sens B-Natriuretic Peptide Total Protein 7.1 Albumin 4.4 Lipase 16 Urine Color Urine Appearance Urine pH Ur Specific [place] Urine Protein Urine Glucose (UA) Urine Ketones Urine Blood Urine Nitrite Ur Leukocyte Esterase COVID-19 (COLIN) Negative COVID-19 Clin Com See Note Influenza Type A (JOHANNY) Influenza Type B (JOHANNY) Influenza A & B Note 03/07/22 03/07/22 03/07/22 12:03 12:03 14:38 MCV MCH MCHC RDW Plt Count MPV Immature Gran % (Auto) Neut % (Auto) Lymph % (Auto) [place] % (Auto) Eos % (Auto) Baso % (Auto) Lymph # (Auto) [place] # (Auto) Eos # (Auto) Baso # (Auto) Abs Immat Gran (auto) Absolute Neuts (auto) Absolute Nucleated RBC Nucleated RBC % (auto) Smear Tech's Comments PT INR APTT D-Dimer High Sensitivty O2 Saturation 94.0 ABG pH at Pt Temp 7.27 L ABG pCO2 at Pt Temp 96 H* ABG pO2 at Pt Temp 85 ABG HCO3 44 H ABG Base Excess (Actual) 12.5 VBG pH VBG pCO2 VBG pO2 VBG HCO3 VBG O2 Saturation VBG Base Excess Anion Gap Estim Creat Clear Calc Estimated GFR Random Glucose Lactic Acid Calcium Phosphorus Magnesium Total Bilirubin AST ALT Alkaline Phosphatase Ammonia Troponin I High Sens 55.3 H D B-Natriuretic Peptide 490 H Total Protein Albumin Lipase Urine Color Urine Appearance Urine pH Ur Specific [place] Urine Protein Urine Glucose (UA) Urine Ketones Urine Blood Urine Nitrite Ur Leukocyte Esterase COVID-19 (COLIN) COVID-19 Clin Com Influenza Type A (JOHANNY) Influenza Type B (JOHANNY) Influenza A & B Note 03/07/22 03/07/22 03/07/22 15:51 15:51 16:51 MCV MCH MCHC RDW Plt Count MPV Immature Gran % (Auto) Neut % (Auto) Lymph % (Auto) [place] % (Auto) Eos % (Auto) Baso % (Auto) Lymph # (Auto) [place] # (Auto) Eos # (Auto) Baso # (Auto) Abs Immat Gran (auto) Absolute Neuts (auto) Absolute Nucleated RBC Nucleated RBC % (auto) Smear Tech's Comments PT INR APTT D-Dimer High Sensitivty O2 Saturation 87.0 ABG pH at Pt Temp 7.43 ABG pCO2 at Pt Temp 63 H* ABG pO2 at Pt Temp 57 L ABG HCO3 42 H ABG Base Excess (Actual) 14.5 VBG pH VBG pCO2 VBG pO2 VBG HCO3 VBG O2 Saturation VBG Base Excess Anion Gap Estim Creat Clear Calc Estimated GFR Random Glucose Lactic Acid Calcium Phosphorus Magnesium Total Bilirubin AST ALT Alkaline Phosphatase Ammonia 37 Troponin I High Sens 54.9 H B-Natriuretic Peptide Total Protein Albumin Lipase Urine Color Urine Appearance Urine pH Ur Specific [place] Urine Protein Urine Glucose (UA) Urine Ketones Urine Blood Urine Nitrite Ur Leukocyte Esterase COVID-19 (COLIN) COVID-19 Clin Com Influenza Type A (JOHANNY) Influenza Type B (JOHANNY) Influenza A & B Note 03/07/22 03/07/22 03/08/22 17:58 19:34 05:38 MCV MCH MCHC RDW Plt Count MPV Immature Gran % (Auto) Neut % (Auto) Lymph % (Auto) [place] % (Auto) Eos % (Auto) Baso % (Auto) Lymph # (Auto) [place] # (Auto) Eos # (Auto) Baso # (Auto) Abs Immat Gran (auto) Absolute Neuts (auto) Absolute Nucleated RBC Nucleated RBC % (auto) Smear Tech's Comments PT INR APTT D-Dimer High Sensitivty O2 Saturation 90.0 ABG pH at Pt Temp 7.34 L ABG pCO2 at Pt Temp 82 H* ABG pO2 at Pt Temp 68 L ABG HCO3 45 H ABG Base Excess (Actual) 15.2 VBG pH VBG pCO2 VBG pO2 VBG HCO3 VBG O2 Saturation VBG Base Excess Anion Gap 15 Estim Creat Clear Calc 85.4 Estimated GFR > 60 Random Glucose 111 Lactic Acid Calcium 9.2 Phosphorus 3.0 Magnesium 2.4 Total Bilirubin AST ALT Alkaline Phosphatase Ammonia Troponin I High Sens B-Natriuretic Peptide Total Protein Albumin Lipase Urine Color Yellow Urine Appearance Clear Urine pH 7.0 Ur Specific [place] 1.015 Urine Protein Trace Urine Glucose (UA) Negative Urine Ketones Negative Urine Blood Negative Urine Nitrite Negative Ur Leukocyte Esterase Negative COVID-19 (COLIN) COVID-19 Clin Com Influenza Type A (JOHANNY) Influenza Type B (JOHANNY) Influenza A & B Note 03/08/22 05:40 MCV MCH MCHC RDW Plt Count MPV Immature Gran % (Auto) Neut % (Auto) Lymph % (Auto) [place] % (Auto) Eos % (Auto) Baso % (Auto) Lymph # (Auto) [place] # (Auto) Eos # (Auto) Baso # (Auto) Abs Immat Gran (auto) Absolute Neuts (auto) Absolute Nucleated RBC Nucleated RBC % (auto) Smear Tech's Comments PT INR APTT D-Dimer High Sensitivty O2 Saturation ABG pH at Pt Temp ABG pCO2 at Pt Temp ABG pO2 at Pt Temp ABG HCO3 ABG Base Excess (Actual) VBG pH 7.55 H VBG pCO2 32 VBG pO2 143 VBG HCO3 28 H VBG O2 Saturation 100.0 VBG Base Excess 6.8 Anion Gap Estim Creat Clear Calc Estimated GFR Random Glucose Lactic Acid Calcium Phosphorus Magnesium Total Bilirubin AST ALT Alkaline Phosphatase Ammonia Troponin I High Sens B-Natriuretic Peptide Total Protein Albumin Lipase Urine Color Urine Appearance Urine pH Ur Specific [place] Urine Protein Urine Glucose (UA) Urine Ketones Urine Blood Urine Nitrite Ur Leukocyte Esterase COVID-19 (COLIN) COVID-19 Clin Com Influenza Type A (JOHANNY) Influenza Type B (JOHANNY) Influenza A & B Note Imaging Radiologist's Impressions: Impressions Chest X-Ray 03/07/22 11:11 IMPRESSION: No acute cardiopulmonary process. Assessment and Plan (1) Altered mental status: Status: Acute (2) Hypertension: Status: Acute (3) Tardive dyskinesia: Status: Acute (4) Chronic obstructive pulmonary disease with (acute) exacerbation: Status: Acute Plan Pt is a 11-zrct-[age]-male with a PMH significant for COPD, CHF, schizophrenia, epilepsy, prostate cancer, HTN, and tardive dyskenisia, who was sent to the ED from his SNF ([facility]) for SOB. He will be admitted for COPD treatment and further workup. # acute hypoxic respiratory failure requiring BiPAP -- likely secondary to COPD exacerbation -- CHF less likely, BNP 490, no edema, JVD -- Diamox 500mg IV bid through today; check VBG tomorrow to see if continue -- BiPAP 12/5 at night -- daily AM VBG -- supplemental O2 as necessary, 1L preferred over 2L as pt is very sensitive to supplemental O2 # acute COPD exacerbation -- etiology unclear, WBC WNL, CXR clear -- pt on Diamox 500mg bid and nightly BiPAP -- doxycycline 100mg bidx5 days for possible infectious source -- DuoNeb q4h while awake -- Solu-Medrol IV 60mg q8h -- continue home maintenance inhalers # elevated BNP -- mildly elevated at 490 -- likely due to COPD exacerbation, less likely CHF -- No edema, JVD # sepsis, severe -- pt with suspected COPD exacerbation and tachypnia requiring BiPAP -- lactic acid 0.9 -- doxycycline 100mg bid # history of seizure -- continue home meds # PVCs -- EKG showed frequent and consecutive PVCs -- admitted to telemetry -- troponins flat at 55.3, 54.9 -- repeat EKG # HTN -- continue home meds Code status: Full code Attending: Dr. Russ DVT prophylaxis: Lovenox Due to pt's need for BiPAP and treatment for respiratory failure, he will require a hospital stay of at least two nights. Quality Stroke Does the patient have a stroke diagnosis?: No VTE Prior VTE?: No VTE Risk Level:: Medical - moderate - high VTE Device Contraindication: Treatment Not Indicated VTE Drug Contraindication: N/A - Med Ordered
[2022-03-08 11:47] LABS: Venous Blood Gas Refer to POC result
[2022-03-08 11:50] LABS: VBG Base Excess 5.5 mmol/L; VBG HCO3 33 mmol/L (22-26); VBG pCO2 60 mmHg; VBG pH 7.34 (7.32-7.43); VBG pO2 61 mmHg
[2022-03-08] MEDS: Enoxaparin Sodium 40 MG/0.4 ML SYRINGE SUBCUT (13:13)
[2022-03-08] MEDS: Furosemide 20 MG TABLET PO (13:13)
[2022-03-08] MEDS: Divalproex Sodium ER 500 MG TAB.ER.24H 1000 MG PO (13:13)
[2022-03-08] MEDS: amLODIPine Besylate 5 MG TABLET PO (13:13)
[2022-03-08] MEDS: Omeprazole 20 MG CAPSULE.DR PO (13:13)
--- NOTE | 2022-03-08 13:17 | PC.NURSE ---
pt medicated by [facility]. Pharmacy called for pt's casodex as medication not available in [facility]
[2022-03-08] MEDS: Bicalutamide 50 MG TABLET PO (14:16)
[2022-03-08] MEDS: Albuterol/Iprat 2.5/0.5MG 3 ML AMPUL.NEB INHALE ×2 (15:43→20:12)
--- NOTE | 2022-03-08 16:49 | PC.NURSE ---
report received from MARQUIS Nayak pt is alert and oriented to self resting in bed comfortably no signs of acute distress notice
[2022-03-08] MEDS: methylPREDNISolone Sod Succ 125 MG/2 ML VIAL 60 MG IVPUSH ×2 (17:00→23:43)
[2022-03-08] MEDS: 0.9 % Sodium Chloride Flush 3 ML SYRINGE IVFLUSH ×2 (17:01→20:58)
--- NOTE | 2022-03-08 18:12 | PC.NURSE ---
Addendum entered by Teodora Muse RN 03/08/22 18:58: Report given MARQUIS Talley Original Note: this RN attempt to give report. nurse unable to get report, will call back
[2022-03-08] MEDS: Doxycycline Hyclate 100 MG in 0.9 % Sodium Chloride 250 ML 166.67 MG IV (20:58)
[2022-03-09] VITALS (12 sets, daily range): BP systolic 103–132; BP diastolic 66–89; PULSE 62–87; RESP 14–20; TEMP 36.1–36.5; O2SAT 88–96
[2022-03-09] MEDS: Doxycycline Hyclate 100 MG in 0.9 % Sodium Chloride 250 ML 166.67 MG IV (04:53)
[2022-03-09] MEDS: Albuterol/Iprat 2.5/0.5MG 3 ML AMPUL.NEB INHALE ×4 (07:43→18:46)
[2022-03-09 08:36] LABS: Venous Blood Gas Refer to POC result
[2022-03-09 08:37] LABS: VBG Base Excess 1.6 mmol/L; VBG HCO3 26 mmol/L (22-26); VBG pCO2 40 mmHg; VBG pH 7.42 (7.32-7.43); VBG pO2 49 mmHg
[2022-03-09] MEDS: Omeprazole 20 MG CAPSULE.DR PO (09:02)
[2022-03-09] MEDS: Lactulose 20 GM/30 ML SOLUTION PO ×2 (09:02→21:07)
[2022-03-09] MEDS: amLODIPine Besylate 5 MG TABLET PO (09:02)
[2022-03-09] MEDS: 0.9 % Sodium Chloride Flush 3 ML SYRINGE IVFLUSH ×2 (09:02→15:20)
[2022-03-09] MEDS: methylPREDNISolone Sod Succ 125 MG/2 ML VIAL 60 MG IVPUSH (09:02)
[2022-03-09] MEDS: Divalproex Sodium ER 500 MG TAB.ER.24H 1000 MG PO (09:04)
[2022-03-09] MEDS: Bicalutamide 50 MG TABLET PO (09:04)
[2022-03-09] MEDS: Furosemide 20 MG TABLET PO (09:04)
--- NOTE | 2022-03-09 09:08 | MHC.CM.PN ---
CM spoke with Patient's Guardian/Bethanie @ [phone] and addressed IMM with her (original will be mailed to Bethanie and a copy has been placed on the chart). Patient is a LTC Resident of [facility] and returning there is the goal once Patient is medically cleared for dc. JOSE has initiated and will follow for dc planning.
[2022-03-09] MEDS: Aspirin Enteric Coated 81 MG TABLET.DR PO (09:10)
--- NOTE | 2022-03-09 10:50 | P.CONPL_ITS ---
History of Present Illness History of Present Illness Consult date: 03/09/22 Reason for consult: dyspnea, cough and hypoxemia Chief complaint: SOB/resp.failure Narrative: Pt is a [id number]-male with a PMH significant for COPD, CHF, schizophrenia, epilepsy, prostate cancer, HTN, and tardive dyskenisia. He was treated here at [facility] in October 2021, for an episode of toxic metabolic encephalopathy, which cleared quickly. He is a resident of the long-term [facility] On 03/07 he was sent to the emergency room because of a relatively sudden change in mental status, cough and increased shortness of breath. He was noted to have hypoxemia with O2 sat on room air 88%. As per notes from the [facility]. Patient did not have any fever, or prior complaint of any respiratory distress. EMS had treated him with DuoNeb and Solu-Cortef 100mg IV. While EN route to the emergency room.? In the ED initial presentation of pt was afebrile and non tachypneic.? Lung exam did reveal diffuse rhonchi.? Labs were significant for normal CBC and PT/INR.? BNP was elevated at 490.? High sensitivity troponin was elevated at 55.3 with a repeat plateaued at 54.9.? Chest x-ray was reported to showed no active lung disease. However my review indicates that he may have some density/infiltrate in the left lower lobe. After arrival in the emergency room this gentleman had a period of lethargy with pinpoint pupils.? Was given 2 mg IV Narcan with no response.? ABG revealed pH of 7.27 and pCO2 of 96.? Indicating an acute hypercapnic /hypoxemic respiratory failure. He was started on BiPAP therapy in the emergency room and also given IV Diamox, ABGs repeated after 1 hour showed significant improvement , pH 7.43 and PCO2 63. Patient is being treated with DuoNeb updrafts, IV Solu-Medrol, O2 supplementation, and he did remain on BiPAP therapy last night. When I see this gentleman this morning he is quite alert , but still not able to do any meaningful conversation. Review of Systems Review of Systems Review of Systems: Yes Unobtainable due to mental condition PMFSH Past Medical History Medical History (Updated 03/09/22 @ 11:07 by Brad Alvarado MD) Cervicalgia CHF (congestive heart failure) COPD (chronic obstructive pulmonary disease) Dementia Diabetes type 2, controlled Dysphagia Epilepsy GERD (gastroesophageal reflux disease) Hypertension Muscle weakness (generalized) Pneumonia due to Acinetobacter species Respiratory failure with hypoxia and hypercapnia Schizo affective schizophrenia Spinal stenosis Family History Family History Mother Cancer Social History Social History Household Members: None Housing: Residential Housing Other:: non verbal Are you a primary customer care assistant to a significant other at home: No Unable to assess alcohol history related to: Unable to respond Alcohol intake: unknown Patient Tobacco Use Status: Never used Tobacco Smoked in Last 30 Days: No Second Hand Smoke Exposure: No Use of substances other than those prescribed or required for medical reasons: Unable to respond Currently Displaying Signs/Symptoms of Drug Intoxication Withdrawal: No Advance Directives: No Recently lost weight without trying: Unsure Nutrition Risks: Difficulty chewing and Difficulty swallowing service: No Current occupational status: disabled Meds Allergies Allergy/AdvReac Type Severity Reaction Status Date / Time tuberculin, purified protein Allergy Unknown UNKNOWN Verified 12/21/21 13:21 deriva [Tuberculin,Purif.Prot.Deriv.] Active Medications: Current Medications Acetaminophen (Acetaminophen 325 Mg Tablet) 650 mg PO Q6H PRN PRN Reason: Pain, Mild (Pain Scale 1-3) Al Hydroxide/Mg Hydroxide (Magnesium Hydrox/Alum Hydrox 30 Ml Oral.Susp) 20 ml PO Q4H PRN PRN Reason: Dyspepsia Albuterol Sulfate (Albuterol Sulfate 90 Mcg 8 Gm Inhaler) 2 puff INHALE Q4H PRN PRN Reason: cough Albuterol/Ipratropium (Albuterol/Iprat 2.5/0.5mg 3 Ml Ampul.Neb) 3 ml INHALE RQ4H WHILE AWAKE [facility] Last Admin: 03/09/22 07:43 Dose: 3 ml Amlodipine Besylate (Amlodipine Besylate 5 Mg Tablet) 5 mg PO DAILY [facility]; Protocol Last Admin: 03/09/22 09:02 Dose: 5 mg Artificial Tears (Artificial Tears 15 Ml Drops) 1 drop EYE-BOTH Q8H PRN PRN Reason: Dry Eyes Aspirin (Aspirin Enteric Coated 81 Mg Tablet.Dr) 81 mg PO DAILY [facility] Last Admin: 03/09/22 09:10 Dose: 81 mg Bicalutamide (Bicalutamide 50 Mg Tablet) [address] [facility] Last Admin: 03/09/22 09:04 Dose: 50 mg Divalproex Sodium (Divalproex Sodium Er 500 Mg Tab.Er.24h) 1,[address] [facility] Last Admin: 03/09/22 09:04 Dose: 1,000 mg Docusate Sodium (Docusate Sodium 100 Mg Capsule) 100 mg PO DAILY PRN PRN Reason: Constipation Enoxaparin Sodium (Enoxaparin Sodium 40 Mg/0.4 Ml Syringe) [address] [facility] Last Admin: 03/08/22 13:13 Dose: 40 mg Furosemide (Furosemide 20 Mg Tablet) [address] [facility]; Protocol Last Admin: 03/09/22 09:04 Dose: 20 mg Doxycycline Hyclate 100 mg/ (Sodium Chloride) 250 mls @ 166.67 mls/hr IV Q12H [facility] Last Infusion: 03/09/22 06:35 Dose: Infused Lactulose (Lactulose 20 Gm/30 Ml Solution) [address] [facility] Last Admin: 03/09/22 09:02 Dose: 20 gm Methylprednisolone Sodium Succinate (Methylprednisolone Sod Succ 125 Mg/2 Ml Vial) [address] [facility] Last Admin: 03/09/22 09:02 Dose: 60 mg Omeprazole (Omeprazole 20 Mg Capsule.Dr) [address] [facility] Last Admin: 03/09/22 09:02 Dose: 20 mg Ondansetron HCl (Ondansetron Hcl 4 Mg/2 Ml Vial) 4 mg IVPUSH Q8H PRN PRN Reason: Nausea and Vomiting Pharmacy Consult (Consult Rx Perform Med Rec) 1 each MISCELLANE ONCE PRN PRN Reason: Consult order Senna (Sennosides 8.6 Mg Tablet) 8.6 mg PO BEDTIME PRN PRN Reason: Constipation Sodium Chloride (0.9 % Sodium Chloride Flush 3 Ml Syringe) [address] [facility] Last Admin: 03/09/22 09:02 Dose: 3 ml Home Medications Medication Instructions Recorded Confirmed Last Taken Type acetaminophen 325 mg capsule 650 mg PO Q4H PRN Pain 01/19/20 03/07/22 Unknown H istory amlodipine 5 mg tablet 5 mg PO DAILY 01/19/20 03/07/22 Unknown History aspirin 81 mg tablet 81 mg PO DAILY 01/19/20 03/07/22 Unknown History bicalutamide 50 mg tablet 50 mg PO DAILY 01/19/20 03/07/22 Unknown History bisacodyl 5 mg rectal suppository 10 mg LA DAILY 01/19/20 03/07/22 Unknown History divalproex 500 mg tablet,extended 1,000 mg PO DAILY 01/19/20 03/07/22 Unknown History release 24 hr furosemide 20 mg tablet (Lasix) 20 mg PO QAM 01/19/20 03/07/22 Unknown History ibuprofen 200 mg tablet 600 mg PO Q6H PRN Pain 01/19/20 03/07/22 Unknown History levalbuterol tartrate 45 2 puff inhalation Q4-6H PRN cough 01/19/20 03/07/22 Unknown History mcg/actuation aerosol inhaler lorazepam 2 mg/mL injection 1 mg sublingual BEDTIME PRN 01/19/20 03/07/22 Unknown History solution (Ativan) Seizure Activity omeprazole 20 mg capsule,delayed 20 mg PO DAILY 01/19/20 03/07/22 Unknown History release sennosides 8.6 mg tablet (senna) 8.6 mg PO BEDTIME PRN Constipation 01/19/20 03/07/22 Unknown History doxycycline hyclate 50 mg capsule 1 cap PO DAILY 12/21/21 03/07/22 Unknown History guaifenesin 100 mg/5 mL oral liquid 200 mg PO Q4H PRN Cough 12/21/21 03/07/22 Unknown History sodium phosphates 19 gram-7 118 ml LA DAILY PRN Constipation 12/21/21 03/07/22 Unknown History gram/118 mL enema (Fleet Enema) aluminum-mag hydroxide-simethicone 20 ml PO Q4H PRN Dyspepsia 03/07/22 03/07/22 Unknown History 200 mg-200 mg-20 mg/5 mL oral susp dextran 70-hypromellose (PF) 0.1 1 drp ophthalmic (eye) Q8H PRN Dry 03/07/22 03/07/22 Unknown History %-0.3 % eye drops in a dropperette Eyes (Artificial Tears (PF)) Physical Exam Vital Signs: Vital Signs: Last Vital Signs Temp 97.2 F 12/09/22 07:58 Pulse 62 03/09/22 07:58 Resp 18 03/09/22 07:58 BP 122/66 03/09/22 07:58 Pulse Ox 92 03/09/22 07:58 O2 Del Method 03/09/22 07:58 O2 Flow Rate 21 03/09/22 07:58 FiO2 22 03/08/22 04:00 Oxygen Flow Rate 21 03/07/22 16:08 BMI result Body Mass Index 35.2 Const: Other: This gentleman is moderately obese and has features of tardive dyskinesia General: comfortable, no acute distress (Slightly short of breath), alert, awake and patient obtunded Orientation/consciousness: patient obtunded HEENT: Head: Yes normal to inspection General nose exam: No nasal polyps present and No nasal discharge present Face and sinus: Yes sinuses nontender Mouth: other (Oropharynx could not be visualized, patient does have tardive dyskinesia) Eyes: General: appearance normal, both eyes and all related structures Neck: Neck: Yes normal visual inspection, Yes no lymphadenopathy, Yes trachea midline and Yes no JVD Thyroid: Thyroid normal Chest: Chest palpation & inspection: normal inspection of the chest, normal palpation of entire chest wall and no tenderness Resp: Other: Percussion note is barely resonant. Breath sounds are diminished throughout the chest. Coarse crepitations over the left lower lobe are heard. There are also scattered crepitations over the right lower chest. Cardio: Palpation: normal PMI Rate: regular rate Rhythm: regular rhythm Heart sounds: no gallops and no murmurs GI: Palpation (GI): Soft to palpation, nontender, No hepatosplenomegaly pre sent and no masses Auscultation: normal bowel sounds Back/Spine/Pelvis: Other: Not examine Thoracic/Lumbar Spine: thoracic and lumbar spine normal to inspection Skin: General skin exam: no rashes or lesions noted Neuro: General: No gait normal (Patient is bed confined) and patient obtunded Extrem: General: Yes normal to inspection, Yes no clubbing, cyanosis or edema and Yes no calf tenderness Psych: Mental Status: other (Patient is non conversing at this time) Results Laboratory Findings CBC and BMP: 03/07/22 11:52 03/08/22 05:38 ABG, PT/INR, D-dimer: PT/INR, D-dimer PT 11.5 SEC (10.0-13.1) 03/07/22 11:52 INR 1.0 (0.9-1.1) 03/07/22 11:52 Abnormal lab findings: Abnormal Labs 03/07/22 03/07/22 03/07/22 11:52 11:52 11:53 Plt Count 136 L D Immature Gran % (Auto) 1.0 H Neut % (Auto) 77.5 H Lymph % (Auto) 17.0 L Lymph # (Auto) 0.9 L Abs Immat Gran (auto) 0.05 H APTT 41.1 H ABG pH at Pt Temp ABG pCO2 at Pt Temp ABG pO2 at Pt Temp ABG HCO3 VBG pH VBG HCO3 Carbon Dioxide 38 H Anion Gap 11 L BUN 19 H Random Glucose 161 H ALT 42 H Troponin I High Sens B-Natriuretic Peptide 03/07/22 03/07/22 03/07/22 12:03 12:03 14:38 Plt Count Immature Gran % (Auto) Neut % (Auto) Lymph % (Auto) Lymph # (Auto) Abs Immat Gran (auto) APTT ABG pH at Pt Temp 7.27 L ABG pCO2 at Pt Temp 96 H* ABG pO2 at Pt Temp ABG HCO3 44 H VBG pH VBG HCO3 Carbon Dioxide Anion Gap BUN Random Glucose ALT Troponin I High Sens 55.3 H D B-Natriuretic Peptide 490 H 03/07/22 03/07/22 03/07/22 15:51 16:51 19:34 Plt Count Immature Gran % (Auto) Neut % (Auto) Lymph % (Auto) Lymph # (Auto) Abs Immat Gran (auto) APTT ABG pH at Pt Temp 7.34 L ABG pCO2 at Pt Temp 63 H* 82 H* ABG pO2 at Pt Temp 57 L 68 L ABG HCO3 42 H 45 H VBG pH VBG HCO3 Carbon Dioxide Anion Gap BUN Random Glucose ALT Troponin I High Sens 54.9 H B-Natriuretic Peptide 03/08/22 03/08/22 03/08/22 05:38 05:40 11:44 Plt Count Immature Gran % (Auto) Neut % (Auto) Lymph % (Auto) Lymph # (Auto) Abs Immat Gran (auto) APTT ABG pH at Pt Temp ABG pCO2 at Pt Temp ABG pO2 at Pt Temp ABG HCO3 VBG pH 7.55 H VBG HCO3 28 H 33 H Carbon Dioxide Anion Gap BUN 25 H Random Glucose ALT Troponin I High Sens B-Natriuretic Peptide Microbiology: Microbiology 03/07/22 11:52 Blood - Venous Blood Culture - Preliminary No growth after 24 hours. 03/07/22 11:52 Blood - Venous Blood Culture - Preliminary No growth after 24 hours. Diagnostic Findings Chest x-ray: report reviewed and image reviewed Assessment and Plan (1) Chronic obstructive pulmonary disease with (acute) exacerbation: Status: Acute (2) Tardive dyskinesia: Status: Acute (3) Respiratory failure with hypoxia and hypercapnia: Status: Acute (4) Pneumonia due to Acinetobacter species: Status: Acute Plan This gentleman has chronic obstructive pulmonary disorder, Tardive dyskinesia, with the fluctuating mental status. He may have had an event of pulmonary aspiration. Clinically I suspect that he has aspiration pneumonia left lower lobe. With his baseline chronic obstructive pulmonary disease, he tends to deco mpensate quickly due to pneumonia or any acute neurologic event. He probably does have ongoing chronic ventilatory disorder. Admitted with acute respiratory failure, which is now improved with the use of BiPAP. Venous blood gas study this morning is basically normal. Recc. Empirically start him on be broad-spectrum antibiotic . I think Zosyn would be more appropriate. DuoNeb updrafts q.4 hours while awake. And p.r.n. O2 supplementation 2-4 L/minute to keep O2 sat 90-92%. Okay to DC BiPAP therapy at this time, but monitor with blood gases on a daily basis for the next few days. If he starts retaining CO2 , then he should be tested to qualify him for nightly BiPAP treatment on regular basis. Wean off IV Solu-Medrol over the next 2 days, then keep on a short course of prednisone. Thank you for asthma to see this patient. Procedures Date of Service Date of Service: 03/09/22
--- NOTE | 2022-03-09 11:54 | P.PNIM_ITS ---
Subjective Subjective Date of Service: 03/09/22 <REZA Fernandes - Last Filed: 03/09/22 14:11> 03/10/22 <Link Russ MD - Last Filed: 03/10/22 13:05> Interval History: Pt seen for f/u for hypoxia and respiratory failure secondary to COPD exacerbation. Interval history: Pt seen and evaluated in his room, still nonverbal. On BiPAP. Vital signs stable overnight. Blood gas this morning within normal limits. Received last dose of Diamox last night. No acute concerns overnight. <REZA Fernandes - Last Filed: 03/09/22 14:11> Review of Systems Unable to obtain due to patient's mental status. <REZA Fernandes - Last Filed: 03/09/22 14:11> Physical Exam Vital Signs: Vital Signs: Last Vital Signs Temp 97.7 F 03/09/22 11:34 Pulse 78 03/09/22 11:34 Resp 20 03/09/22 11:34 BP 114/66 03/09/22 11:34 Pulse Ox 96 03/09/22 11:34 O2 Del Method 03/09/22 11:34 O2 Flow Rate 1 03/09/22 11:34 FiO2 22 03/08/22 04:00 Oxygen Flow Rate 21 03/07/22 16:08 BMI result Body Mass Index 35.2 <REZA Fernandes - Last Filed: 03/09/22 14:11> General: Awake and alert. Nonverbal but able to follow simple commands. Tardive dyskenisia of the mouth. Resp: Diffuse rhonchi throughout bilaterally CVS: S1, S2, RRR GI: +BS, NT, no distention Skin: No rash Neuro: Motor grossly intact Psych: Appropriate affect <REZA Fernandes - Last Filed: 03/09/22 14:11> Objective Data Active Medications Acetaminophen (Acetaminophen 325 Mg Tablet) 650 mg PO Q6H PRN PRN Reason: Pain, Mild (Pain Scale 1-3) Al Hydroxide/Mg Hydroxide (Magnesium Hydrox/Alum Hydrox 30 Ml Oral.Susp) 20 ml PO Q4H PRN PRN Reason: Dyspepsia Albuterol Sulfate (Albuterol Sulfate 90 Mcg 8 Gm Inhaler) 2 puff INHALE Q4H PRN PRN Reason: cough Albuterol/Ipratropium (Albuterol/Iprat 2.5/0.5mg 3 Ml Ampul.Neb) 3 ml INHALE RQ4H WHILE AWAKE [facility] Last Admin: 03/09/22 11:27 Dose: 3 ml Documented By: CYN Amlodipine Besylate (Amlodipine Besylate 5 Mg Tablet) 5 mg PO DAILY [facility]; Protocol Last Admin: 03/09/22 09:02 Dose: 5 mg Documented By: MARIZA Artificial Tears (Artificial Tears 15 Ml Drops) 1 drop EYE-BOTH Q8H PRN PRN Reason: Dry Eyes Aspirin (Aspirin Enteric Coated 81 Mg Tablet.Dr) 81 mg PO DAILY [facility] Last Admin: 03/09/22 09:10 Dose: 81 mg Documented By: MARIZA Bicalutamide (Bicalutamide 50 Mg Tablet) 50 mg PO DAILY [facility] Last Admin: 03/09/22 09:04 Dose: 50 mg Documented By: MARIZA Divalproex Sodium (Divalproex Sodium Er 500 Mg Tab.Er.24h) 1,000 mg PO DAILY [facility] Last Admin: 03/09/22 09:04 Dose: 1,000 mg Documented By: MARIZA Docusate Sodium (Docusate Sodium 100 Mg Capsule) 100 mg PO DAILY PRN PRN Reason: Constipation Enoxaparin Sodium (Enoxaparin Sodium 40 Mg/0.4 Ml Syringe) 40 mg SUBCUT Q24H [facility] Last Admin: 03/08/22 13:13 Dose: 40 mg Documented By: LUCILLE Furosemide (Furosemide 20 Mg Tablet) 20 mg PO DAILY [facility]; Protocol Last Admin: 03/09/22 09:04 Dose: 20 mg Documented By: MARIZA Doxycycline Hyclate 100 mg/ (Sodium Chloride) 250 mls @ 166.67 mls/hr IV Q12H [facility] Last Infusion: 03/09/22 06:35 Dose: 0 mls/hr Documented By: POOJA Lactulose (Lactulose 20 Gm/30 Ml Solution) 20 gm PO BID [facility] Last Admin: 03/09/22 09:02 Dose: 20 gm Documented By: MARIZA Methylprednisolone Sodium Succinate (Methylprednisolone Sod Succ 125 Mg/2 Ml Vial) 60 mg IVPUSH Q8H [facility] Last Admin: 03/09/22 09:02 Dose: 60 mg Documented By: MARIZA Omeprazole (Omeprazole 20 Mg Capsule.Dr) 20 mg PO DAILY [facility] Last Admin: 03/09/22 09:02 Dose: 20 mg Documented By: MARIZA Ondansetron HCl (Ondansetron Hcl 4 Mg/2 Ml Vial) 4 mg IVPUSH Q8H PRN PRN Reason: Nausea and Vomiting Pharmacy Consult (Consult Rx Perform Med Rec) 1 each MISCELLANE ONCE PRN PRN Reason: Consult order Senna (Sennosides 8.6 Mg Tablet) 8.6 mg PO BEDTIME PRN PRN Reason: Constipation Sodium Chloride (0.9 % Sodium Chloride Flush 3 Ml Syringe) 3 ml IVFLUSH QSHIFT [facility] Last Admin: 03/09/22 09:02 Dose: 3 ml Documented By: MARIZA <REZA Fernandes - Last Filed: 03/09/22 14:11> Labs CBC & Chem 7: : 03/07/22 11:52 03/08/22 05:38 <REZA Fernandes - Last Filed: 03/09/22 14:11> Labs: Laboratory Results - last 24 hr 03/09/22 08:32 VBG pH 7.42 VBG pCO2 40 VBG pO2 49 VBG HCO3 26 VBG O2 Saturation 76.0 VBG Base Excess 1.6 <REZA Fernandes - Last Filed: 03/09/22 14:11> Microbiology Microbiology Results: Microbiology 03/07/22 11:52 Blood Culture - Preliminary Blood - Venous No growth after 24 hours. 03/07/22 11:52 Blood Culture - Preliminary Blood - Venous No growth after 24 hours. <REZA Fernandes - Last Filed: 03/09/22 14:11> Assessment and Plan (1) Respiratory failure with hypoxia and hypercapnia: Status: Acute <REZA Fernandes - Last Filed: 03/09/22 14:11> (2) Chronic obstructive pulmonary disease with (acute) exacerbation: Status: Acute <REZA Fernandes - Last Filed: 03/09/22 14:11> (3) Aspiration pneumonia: Status: Acute <REZA Fernandes - Last Filed: 03/09/22 14:11> Assessment and Plan: Pt is a 44-vcnn-dub-male with a PMH significant for COPD, CHF, fantasma izophrenia, epilepsy, prostate cancer, HTN, and tardive dyskenisia, who was sent to the ED from his SNF ([facility]) for SOB. He was admitted for COPD treatment and further workup. # acute hypoxic respiratory failure requiring BiPAP -- likely secondary to COPD exacerbation -- CHF less likely, BNP 490, no edema, JVD -- stop Diamox 500mg IV bid -- VBG WNL, check VBG daily AM for next two days -- stop BiPAP at night, per pulmonology -- supplemental O2 titrated for O2 sat 90-92%, 2-4L as necessary, per pulmonology # acute COPD exacerbation -- possibly secondary to aspiration pneunomia, per pulmonology -- switch doxycycline to Zosyn for possible infectious source -- DuoNeb q4h and prn while awake -- wean off Solu-Medrol over next two days, then switch to short course of prednisone, per pulmonology -- continue home maintenance inhalers # aspiration pneumonia -- pulmonology suspects aspiration pneumonia -- CXR may show evidence of density/infiltrate of left lower lung -- Zosyn 4.5g IV q6 # elevated BNP -- mildly elevated at 490 -- likely due to COPD exacerbation, less likely CHF -- No edema, JVD # sepsis, severe -- pt with suspected COPD exacerbation and tachypnia requiring BiPAP -- lactic acid 0.9 -- on broad spectrum abx # history of seizure -- continue home meds # PVCs -- EKG showed frequent and consecutive PVCs -- admitted to telemetry -- troponins flat at 55.3, 54.9 -- repeat EKG # HTN -- continue home meds Code status: Full code Attending: Dr. Russ DVT prophylaxis: Lovenox Due to pt's need for treatment for respiratory failure he will require continued hospitalization. <REZA Fernandes - Last Filed: 03/09/22 14:11> Quality Stroke Does the patient have a stroke diagnosis?: No <REZA Fernandes - Last Filed: 03/09/22 14:11> VTE Prior VTE?: No <REZA Fernandes - Last Filed: 03/09/22 14:11> VTE Risk Level:: Medical - moderate - high <REZA Fernandes - Last Filed: 03/09/22 14:11> VTE Device Contraindication: Treatment Not Indicated <REZA Fernandes - Last Filed: 03/09/22 14:11> VTE Drug Contraindication: N/A - Med Ordered <REZA Fernandes - Last Filed: 03/09/22 14:11>
--- NOTE | 2022-03-09 12:38 | P.CDIC_ITS ---
CDI Concurrent Query Documentation Clarification: PHYSICIAN'S DOCUMENTATION REQUEST Date of Query: 03/09/22 1238 Patient Name: Prateek Lee Admit Date: 03/08/22 Dear Doctor, A review of the medical record indicates additional documentation may be needed. Please review below and update the documentation accordingly. Clinical Indicators: A diagnosis of acute hypercarbic respiratory failure was made on 03/08/22 but the record lacks subsequent documentation. Do you agree with the diagnosis below: Risk Factors/Clinical Indicators/Treatments Per critical care consultation on 03/07: May well have chronic hypercarbic respiratory failure. 1. Acute hypercarbic respiratory failure . ABG showed 7.27/96/+12 the patient is SOB, has eyes closed and he is nonverbal. Vitals: RR on 03/07: 26 RR on 03/08: 28 Recognized standard criteria for respiratory failure includes: (Source: [facility] Hospitalist Jan 2013) ABGs (1 or more) Symptoms: ? PO2 <60 or RA SpO2 <91% ? Tachypnea, SOB, dyspnea ? PcO2 >50 and pH <7.35 ? Pallor or cyanosis ? pO2 decrease or pcO2 increase ? Anxiety or restlessness by 10 mm/Hg from baseline if known ? Use of accessory muscles ? Retractions (grunting in newborns) ? Unable to speak in complete sentences P/F ratio < 300 Supplemental O2 requirement of 40% or more Intubation is not required Clarify which of the following accurately represents the patient's respiratory status: * Acute on chronic hypercarbic respiratory failure * Chronic hypercarbic respiratory failure * Other (please specify) * Unable to determine/rule out Use of terms such as suspected, likely, concern for, or probable (associated with a specific diagnosis that is being evaluated, monitored, or treated as if it exists) are acceptable and can be coded in the inpatient setting, when documented at the time of discharge. Thank you, Marquita Zapata MS, RN, CCRN Extension: [phone] Please use your independent medical judgment in providing your response. THIS QUERY IS PART OF THE PERMANENT MEDICAL RECORD Provider Response: Other (Acute hypercarbic respiratory failure) Other Diagnosis: Acute hypercarbic respiratory failure
--- NOTE | 2022-03-09 12:55 | P.CDIC_ITS ---
CDI Concurrent Query Documentation Clarification: PHYSICIAN'S DOCUMENTATION REQUEST Date of Query: 03/09/22 1258 Patient Name: Prateek Lee Admit Date: 03/08/22 Dear Doctor, A review of the medical record indicates additional documentation may be needed. Please review below and update the documentation accordingly. Clinical Indicators: A diagnosis of was made on 03/07/22 but the record lacks subsequent documentation. Do you agree with the diagnosis below: Risk Factors/Clinical Indicators/Treatments POA/RESOLVED/TREAT/RULE OUT Per provider progress note on 03/07/22: IMO, it will prove very difficult to keep his pCO2 down unless we can fix his metabolic alkalosis Labs: pH on 03/07: 7.27 pCO2 on 03/07: 96 pO2 on 03/07: 85 HCO3 on 03/07: 44 Based on the above, could you clarify in the Progress Notes the appropriate diagnosis, if significant, that supports the above abnormalities and additional evaluation, monitoring, and/or treatment rendered: * Metabolic alkalosis * Labs indicate a diagnosis of (please specify) * Other (please specify) * Unable to determine Use of terms such as suspected, likely, concern for, or probable (associated with a specific diagnosis that is being evaluated, monitored, or treated as if it exists) are acceptable and can be coded in the inpatient setting, when documented at the time of discharge. Thank you, Marquita Zapata MS, RN, CCRN Extension: [phone] Please use your independent medical judgment in providing your response. THIS QUERY IS PART OF THE PERMANENT MEDICAL RECORD Provider Response: Other (Metabolic alkalosis) Other Diagnosis: I do agree. It's a mixed process, with a primary respiratory acidosis with a compensatory metabolic alkalosis.
--- NOTE | 2022-03-09 13:02 | P.CDIC_ITS ---
CDI Concurrent Query Documentation Clarification: PHYSICIAN'S DOCUMENTATION REQUEST Date of Query: 03/09/22 1302 Patient Name: Prateek Lee Admit Date: 03/08/22 Dear Doctor, A review of the medical record indicates additional documentation may be needed. Please review below and update the documentation accordingly. Clinical Indicators: The diagnosis of severe sepsis was documented on 03/08/22. Please clarify whether you confirm or rule out the diagnosis below: Risk Factors/Clinical Indicators/Treatments POA/TREAT/RESOLVED/RULE OUT Only indicators: -Patient tachypneic *Patient without leukocytosis *lactic WNL *all other associated vitals WNL Please clarify the following: * Severe sepsis is ruled out * Severe sepsis was present on admission and is now resolved * Severe sepsis was present on admission and is still being monitored, evaluated, or treated * Severe sepsis is still a likely, suspected, probable diagnosis * Other (please specify) * Unable to determine Use of terms such as suspected, likely, concern for, or probable (associated with a specific diagnosis that is being evaluated, monitored, or treated as if it exists) are acceptable and can be coded in the inpatient setting, when documented at the time of discharge. Thank you, Marquita Zapata MS, RN, CCRN Extension: [phone] Please use your independent medical judgment in providing your response. THIS QUERY IS PART OF THE PERMANENT MEDICAL RECORD Provider Response: Severe Sepsis Other Diagnosis: Severe sepsis was present on admission and is being treated. Pt has a COPD exacerbation suspected secondary to aspiration pneumonia, was tachypnic, and had respiratory failure requiring BiPAP. He is being treated with broad spectrum abx.
[2022-03-09] MEDS: Enoxaparin Sodium 40 MG/0.4 ML SYRINGE SUBCUT (13:50)
[2022-03-09] MEDS: methylPREDNISolone Sod Succ 40 MG/ML VIAL IVPUSH (15:17)
[2022-03-10] VITALS (11 sets, daily range): BP systolic 120–139; BP diastolic 72–89; PULSE 53–75; RESP 17–24; TEMP 36.1–36.8; O2SAT 91–98
[2022-03-10] MEDS: 0.9 % Sodium Chloride Flush 3 ML SYRINGE IVFLUSH ×3 (00:04→15:35)
[2022-03-10] MEDS: methylPREDNISolone Sod Succ 40 MG/ML VIAL IVPUSH ×2 (02:34→15:33)
[2022-03-10] MEDS: Albuterol/Iprat 2.5/0.5MG 3 ML AMPUL.NEB INHALE ×4 (07:38→19:13)
[2022-03-10] MEDS: Enoxaparin Sodium 40 MG/0.4 ML SYRINGE SUBCUT (10:36)
--- NOTE | 2022-03-10 13:05 | HO.PM.IMPN ---
Subjective Subjective Date of Service: 03/10/22 Interval History: Seen in f/u for acute on chronic hypoxic respriatory failure, copd, pneumonia interval history: overall better, cabrera alert awake, vitals better Review of Systems unable to communicate with Physical Exam Vital Signs: Vital Signs: Last Vital Signs Temp 98.2 F 03/10/22 11:33 Pulse 71 03/10/22 11:43 Resp 20 03/10/22 11:43 BP 135/85 03/10/22 11:33 Pulse Ox 94 03/10/22 11:33 O2 Del Method 03/10/22 11:33 O2 Flow Rate 2 03/10/22 11:33 FiO2 22 03/08/22 04:00 Oxygen Flow Rate 21 03/07/22 16:08 BMI result Body Mass Index 35.2 Const: Other: General:alerti Resp: rhonchi, diminish, no wheezes or rales CVS: S1,S2,RRR GI: +BS, NT, no distention Skin: No rash Neuro: motor grossly intact Psych: appropriate affect Objective Data Active Medications Acetaminophen (Acetaminophen 325 Mg Tablet) 650 mg PO Q6H PRN PRN Reason: Pain, Mild (Pain Scale 1-3) Al Hydroxide/Mg Hydroxide (Magnesium Hydrox/Alum Hydrox 30 Ml Oral.Susp) 20 ml PO Q4H PRN PRN Reason: Dyspepsia Albuterol Sulfate (Albuterol Sulfate 90 Mcg 8 Gm Inhaler) 2 puff INHALE Q4H PRN PRN Reason: cough Albuterol/Ipratropium (Albuterol/Iprat 2.5/0.5mg 3 Ml Ampul.Neb) 3 ml INHALE RQ4H WHILE AWAKE [facility] Last Admin: 03/10/22 11:38 Dose: 3 ml Documented By: VIDYA Albuterol/Ipratropium (Albuterol/Iprat 2.5/0.5mg 3 Ml Ampul.Neb) 3 ml INHALE RQ4H PRN PRN Reason: Shortness of Breath Amlodipine Besylate (Amlodipine Besylate 5 Mg Tablet) 5 mg PO DAILY [facility]; Protocol Last Admin: 03/10/22 09:36 Dose: Not Given Documented By: RAUDEL Non-Admin Reason: NPO Artificial Tears (Artificial Tears 15 Ml Drops) 1 drop EYE-BOTH Q8H PRN PRN Reason: Dry Eyes Aspirin (Aspirin Enteric Coated 81 Mg Tablet.) 81 mg PO DAILY [facility] Last Admin: 03/10/22 09:36 Dose: Not Given Documented By: RAUDEL Non-Admin Reason: NPO Bicalutamide (Bicalutamide 50 Mg Tablet) 50 mg PO DAILY [facility] Last Admin: 03/10/22 09:37 Dose: Not Given Documented By: RAUDEL Non-Admin Reason: NPO Divalproex Sodium (Divalproex Sodium Er 500 Mg Tab.Er.24h) 1,000 mg PO DAILY [facility] Last Admin: 03/10/22 09:37 Dose: Not Given Documented By: RAUDEL Non-Admin Reason: NPO Docusate Sodium (Docusate Sodium 100 Mg Capsule) 100 mg PO DAILY PRN PRN Reason: Constipation Enoxaparin Sodium (Enoxaparin Sodium 40 Mg/0.4 Ml Syringe) 40 mg SUBCUT Q24H [facility] Last Admin: 03/10/22 10:36 Dose: 40 mg Documented By: RAUDEL Furosemide (Furosemide 20 Mg Tablet) 20 mg PO DAILY [facility]; Protocol Last Admin: 03/10/22 09:37 Dose: Not Given Documented By: RAUDEL Non-Admin Reason: NPO Piperacillin Sod/Tazobactam (Sod 4.5 gm/ Sodium Chloride) 50 mls @ 100 mls/hr IV Q6H [facility] Last Infusion: 03/10/22 11:08 Dose: 100 mls/hr Documented By: RAUDEL Lactulose (Lactulose 20 Gm/30 Ml Solution) 20 gm PO BID [facility] Last Admin: 03/10/22 09:37 Dose: Not Given Documented By: RAUDEL Non-Admin Reason: NPO Methylprednisolone Sodium Succinate (Methylprednisolone Sod Succ 40 Mg/Ml Vial) 40 mg IVPUSH Q12H [facility] Last Admin: 03/10/22 02:34 Dose: 40 mg Documented By: RUEL Omeprazole (Omeprazole 20 Mg Capsule.) 20 mg PO DAILY [facility] Last Admin: 03/10/22 09:37 Dose: Not Given Documented By: RAUDEL Non-Admin Reason: NPO Ondansetron HCl (Ondansetron Hcl 4 Mg/2 Ml Vial) 4 mg IVPUSH Q8H PRN PRN Reason: Nausea and Vomiting Pharmacy Consult (Consult Rx Perform Med Rec) 1 each MISCELLANE ONCE PRN PRN Reason: Consult order Senna (Sennosides 8.6 Mg Tablet) 8.6 mg PO BEDTIME PRN PRN Reason: Constipation Sodium Chloride (0.9 % Sodium Chloride Flush 3 Ml Syringe) 3 ml IVFLUSH QSHIFT [facility] Last Admin: 03/10/22 10:36 Dose: 3 ml Documented By: RAUDEL Labs CBC & Chem 7: 03/07/22 11:52 03/08/22 05:38 Microbiology Microbiology Results: Microbiology 03/07/22 11:52 Blood Culture - Preliminary Blood - Venous No growth after 48 hours. 03/07/22 11:52 Blood Culture - Preliminary Blood - Venous No growth after 48 hours. Assessment and Plan (1) Respiratory failure with hypoxia and hypercapnia: Status: Acute (2) Chronic obstructive pulmonary disease with (acute) exacerbation: Status: Acute (3) Aspiration pneumonia: Status: Acute Plan Pt is a [id number]-male with a PMH significant for COPD, CHF, schizophrenia, epilepsy, prostate cancer, HTN, and tardive dyskenisia, who was sent to the ED from his SNF ([facility]) for SOB. He was admitted for COPD treatment and further workup. # acute hypoxic respiratory failure requiring BiPAP -- likely secondary to COPD exacerbation -- CHF less likely, BNP 490, no edema, JVD # acute COPD exacerbation -- possibly secondary to aspiration pneunomia, per pulmonology - Zosyn for possible infectious source -- DuoNeb q4h and prn while awake -- wean off Solu-Medrol over next two days, then switch to short course of prednisone, per pulmonology -- continue home maintenance inhalers # aspiration pneumonia -- Zosyn 4.5g IV q6 # elevated BNP -- mildly elevated at 490 -- likely due to COPD exacerbation, less likely CHF -- No edema, JVD # sepsis, severe -- pt with suspected COPD exacerbation and tachypnia requiring BiPAP -- lactic acid 0.9 -- on broad spectrum abx # history of seizure -- continue home meds # PVCs -- EKG showed frequent and consecutive PVCs -- admitted to telemetry -- troponins flat at 55.3, 54.9 -- repeat EKG # HTN -- continue home meds #Dysphagia--concern for aspiration, NPO and will need to be reassess by speech, IVF to keep hydraatd Code status: Full code Attending: Dr. Russ DVT prophylaxis: Lovenox Due to pt's need for treatment for respiratory failure he will require continued hospitalization. Time Spent With Patient Time: Total time managing care of this patient today ____ minutes. Quality Stroke Does the patient have a stroke diagnosis?: No VTE Prior VTE?: No VTE Risk Level:: Medical - moderate - high VTE Device Contraindication: Treatment Not Indicated VTE Drug Contraindication: N/A - Med Ordered
[2022-03-10] MEDS: Dextrose 5 % 1,000 ML 80 ML IVCONT (15:34)
[2022-03-11] VITALS (10 sets, daily range): BP systolic 120–148; BP diastolic 72–83; PULSE 56–76; RESP 16–20; TEMP 36.1–36.7; O2SAT 90–97
[2022-03-11] MEDS: methylPREDNISolone Sod Succ 40 MG/ML VIAL IVPUSH ×2 (02:02→15:42)
[2022-03-11] MEDS: Dextrose 5 % 1,000 ML 80 ML IVCONT ×2 (02:03→15:42)
[2022-03-11] MEDS: Albuterol/Iprat 2.5/0.5MG 3 ML AMPUL.NEB INHALE ×4 (07:37→19:37)
[2022-03-11] MEDS: 0.9 % Sodium Chloride Flush 3 ML SYRINGE IVFLUSH ×2 (09:18→21:50)
--- NOTE | 2022-03-11 10:40 | P.PNIM_ITS ---
Subjective Subjective Date of Service: 03/11/22 Interval History: Seen in f/u for acute on chronic hypoxic respriatory failure, copd, pneumonia interval history: Continue to do well, alert, wants to eat but deemed unsafe to swallow earlier tolerating bipap at night Review of Systems unable to communicate with Physical Exam Vital Signs: Vital Signs: Last Vital Signs Temp 97.2 F 03/11/22 07:29 Pulse 70 03/11/22 07:40 Resp 20 03/11/22 07:40 BP 148/81 H 03/11/22 07:29 Pulse Ox 94 03/11/22 07:29 O2 Del Method 03/11/22 07:29 O2 Flow Rate 2 03/10/22 16:00 FiO2 22 03/08/22 04:00 Oxygen Flow Rate 21 03/07/22 16:08 BMI result Body Mass Index 35.2 Const: Other: General:alerti Resp: rhonchi, diminish, no wheezes or rales CVS: S1,S2,RRR GI: +BS, NT, no distention Skin: No rash Neuro: motor grossly intact Psych: appropriate affect Objective Data Active Medications Acetaminophen (Acetaminophen 325 Mg Tablet) 650 mg PO Q6H PRN PRN Reason: Pain, Mild (Pain Scale 1-3) Al Hydroxide/Mg Hydroxide (Magnesium Hydrox/Alum Hydrox 30 Ml Oral.Susp) 20 ml PO Q4H PRN PRN Reason: Dyspepsia Albuterol Sulfate (Albuterol Sulfate 90 Mcg 8 Gm Inhaler) 2 puff INHALE Q4H PRN PRN Reason: cough Albuterol/Ipratropium (Albuterol/Iprat 2.5/0.5mg 3 Ml Ampul.Neb) 3 ml INHALE RQ4H WHILE AWAKE [facility] Last Admin: 03/11/22 07:37 Dose: 3 ml Documented By: VIDYA Albuterol/Ipratropium (Albuterol/Iprat 2.5/0.5mg 3 Ml Ampul.Neb) 3 ml INHALE RQ4H PRN PRN Reason: Shortness of Breath Amlodipine Besylate (Amlodipine Besylate 5 Mg Tablet) 5 mg PO DAILY [facility]; Protocol Last Admin: 03/11/22 08:52 Dose: Not Given Documented By: RAUDEL Non-Admin Reason: NPO Artificial Tears (Artificial Tears 15 Ml Drops) 1 drop EYE-BOTH Q8H PRN PRN Reason: Dry Eyes Aspirin (Aspirin Enteric Coated 81 Mg Tablet.) 81 mg PO DAILY [facility] Last Admin: 03/11/22 08:52 Dose: Not Given Documented By: RAUDEL Non-Admin Reason: NPO Bicalutamide (Bicalutamide 50 Mg Tablet) 50 mg PO DAILY [facility] Last Admin: 03/11/22 08:52 Dose: Not Given Documented By: RAUDEL Non-Admin Reason: NPO Divalproex Sodium (Divalproex Sodium Er 500 Mg Tab.Er.24h) 1,000 mg PO DAILY [facility] Last Admin: 03/11/22 08:52 Dose: Not Given Documented By: RAUDEL Non-Admin Reason: NPO Docusate Sodium (Docusate Sodium 100 Mg Capsule) 100 mg PO DAILY PRN PRN Reason: Constipation Enoxaparin Sodium (Enoxaparin Sodium 40 Mg/0.4 Ml Syringe) 40 mg SUBCUT Q24H [facility] Last Admin: 03/10/22 10:36 Dose: 40 mg Documented By: RAUDEL Furosemide (Furosemide 20 Mg Tablet) 20 mg PO DAILY [facility]; Protocol Last Admin: 03/11/22 08:52 Dose: Not Given Documented By: RAUDEL Non-Admin Reason: NPO Piperacillin Sod/Tazobactam (Sod 4.5 gm/ Sodium Chloride) 50 mls @ 100 mls/hr IV Q6H [facility] Last Admin: 03/11/22 09:18 Dose: 100 mls/hr Documented By: RAUDEL Dextrose (D5w) 1,000 mls @ 80 mls/hr IVCONT .[id number] [facility] Last Admin: 03/11/22 02:03 Dose: 80 mls/hr Documented By: RUEL Lactulose (Lactulose 20 Gm/30 Ml Solution) 20 gm PO BID [facility] Last Admin: 03/11/22 08:52 Dose: Not Given Documented By: RAUDEL Non-Admin Reason: NPO Methylprednisolone Sodium Succinate (Methylprednisolone Sod Succ 40 Mg/Ml Vial) 40 mg IVPUSH Q12H [facility] Last Admin: 03/11/22 02:02 Dose: 40 mg Documented By: RUEL Omeprazole (Omeprazole 20 Mg Capsule.) 20 mg PO DAILY [facility] Last Admin: 03/11/22 08:52 Dose: Not Given Documented By: RAUDEL Non-Admin Reason: NPO Ondansetron HCl (Ondansetron Hcl 4 Mg/2 Ml Vial) 4 mg IVPUSH Q8H PRN PRN Reason: Nausea and Vomiting Pharmacy Consult (Consult Rx Perform Med Rec) 1 each MISCELLANE ONCE PRN PRN Reason: Consult order Senna (Sennosides 8.6 Mg Tablet) 8.6 mg PO BEDTIME PRN PRN Reason: Constipation Sodium Chloride (0.9 % Sodium Chloride Flush 3 Ml Syringe) 3 ml IVFLUSH QSHIFT [facility] Last Admin: 03/11/22 09:18 Dose: 3 ml Documented By: RAUDEL Labs CBC & Chem 7: 03/07/22 11:52 03/08/22 05:38 Assessment and Plan (1) Respiratory failure with hypoxia and hypercapnia: Status: Acute (2) Chronic obstructive pulmonary disease with (acute) exacerbation: Status: Acute (3) Aspiration pneumonia: Status: Acute Plan Pt is a [id number]-male with a PMH significant for COPD, CHF, schizophrenia, epilepsy, prostate cancer, HTN, and tardive dyskenisia, who was sent to the ED from his SNF ([facility]) for SOB. He was admitted for COPD treatment and further workup. # acute hypoxic respiratory failure requiring BiPAP -- secondary to COPD exacerbation -- CHF less likely, BNP 490, no edema, JVD # acute COPD exacerbation - possibly secondary to aspiration pneunomia, per pulmonology - Zosyn for possible infectious source - DuoNeb q4h and prn while awake - continue solumedrol when able to take PO then change to Prednisone -pulmonary input noted -- continue home maintenance inhalers # aspiration pneumonia -- Zosyn 4.5g IV q6, augmentin when able to take PO # elevated BNP -- mildly elevated at 490 -- likely due to COPD exacerbation, less likely CHF -- No edema, JVD # sepsis, severe--resolved -- pt with suspected COPD exacerbation and tachypnia requiring BiPAP -- lactic acid 0.9 -- on broad spectrum abx # history of seizure -- continue home meds # PVCs -- EKG showed frequent and consecutive PVCs -- admitted to telemetry -- troponins flat at 55.3, 54.9 -- repeat EKG # HTN -- continue home meds Vtach--check labs mag, k #Dysphagia--concern for aspiration, NPO and will need to be reassess by speech, IVF to keep hydraatd Code status: Full code DVT prophylaxis: Lovenox Due to pt's need for treatment for respiratory failure he will require continued hospitalization. Time Spent With Patient Time: Total time managing care of this patient today ____ minutes. Quality Stroke Does the patient have a stroke diagnosis?: No VTE Prior VTE?: No VTE Risk Level:: Medical - moderate - high VTE Device Contraindication: Treatment Not Indicated VTE Drug Contraindication: N/A - Med Ordered
[2022-03-11 10:52] LABS: Venous Blood Gas Refer to POC result
[2022-03-11 10:56] LABS: Hematocrit 45.6 % (42.0-52.0); Hemoglobin 15.3 g/dl (14.0-18.0); Mean Corpuscular HGB Conc 33.6 g/dl (31.0-36.0); Mean Corpuscular Hemoglobin 30.2 pg (27.0-33.0); Mean Corpuscular Volume 89.9 fL (80.0-98.0); Mean Platelet Volume 9.3 fL (9.4-12.4); Platelet Count 170 X10*3/uL (160-400); Red Blood Count 5.07 X10*6/uL (4.60-5.80); Red Cell Distribution Width 14.8 % (11.0-16.0); White Blood Count 3.9 X10*3/uL (4.8-10.8)
[2022-03-11 10:56] LABS: VBG Base Excess 2.8 mmol/L; VBG HCO3 27 mmol/L (22-26); VBG pCO2 40 mmHg; VBG pH 7.43 (7.32-7.43); VBG pO2 48 mmHg
[2022-03-11 11:07] LABS: Anion Gap 14 (12-20); Blood Urea Nitrogen 27 mg/dL (9-16); Calcium 9.3 mg/dL (8.4-10.2); Carbon Dioxide 27 mmol/L (22-29); Chloride 107 mmol/L (96-108); Creatinine Clr Calc Pharmacy 93.1; Estimated Glomerular Filt Rate > 60; Glucose Random 147 mg/dL (60-115); Magnesium 2.7 mg/dL (1.6-2.6); Potassium 4.3 mmol/L (3.3-5.1); Sodium 144 mmol/L (135-145)
[2022-03-11] MEDS: Enoxaparin Sodium 40 MG/0.4 ML SYRINGE SUBCUT (12:25)
--- NOTE | 2022-03-11 17:07 | PC.NURSE ---
Bedside swallow eval performed with Dr. Russ. Patient showed no signs of aspiration or difficulty swallowing. Patient advanced back to original diet per MD.
[2022-03-12] VITALS (8 sets, daily range): BP systolic 119–142; BP diastolic 75–88; PULSE 62–80; RESP 18–22; TEMP 36.1–36.7; O2SAT 92–97
[2022-03-12] MEDS: methylPREDNISolone Sod Succ 40 MG/ML VIAL IVPUSH ×2 (02:36→14:37)
[2022-03-12] MEDS: Dextrose 5 % 1,000 ML 80 ML IVCONT (02:49)
[2022-03-12] MEDS: Albuterol/Iprat 2.5/0.5MG 3 ML AMPUL.NEB INHALE ×3 (07:49→19:46)
[2022-03-12] MEDS: Enoxaparin Sodium 40 MG/0.4 ML SYRINGE SUBCUT (10:01)
[2022-03-12] MEDS: 0.9 % Sodium Chloride Flush 3 ML SYRINGE IVFLUSH ×2 (10:01→22:03)
--- NOTE | 2022-03-12 12:50 | P.PNIM_ITS ---
Subjective Subjective Date of Service: 03/12/22 Interval History: Seen in f/u for acute on chronic hypoxic respriatory failure, copd, pneumonia interval history: No trouble breathing, wants to eat, awaiting speech Review of Systems unable to communicate with Physical Exam Vital Signs: Vital Signs: Last Vital Signs Temp 97.0 F 03/12/22 11:01 Pulse 65 03/12/22 11:01 Resp 18 03/12/22 11:01 BP 128/88 03/12/22 11:01 Pulse Ox 95 03/12/22 11:01 O2 Del Method 03/12/22 11:01 O2 Flow Rate 3 03/12/22 11:01 FiO2 22 03/08/22 04:00 Oxygen Flow Rate 21 03/07/22 16:08 BMI result Body Mass Index 35.2 Const: Other: General:alerti Resp: rhonchi, diminish, no wheezes or rales CVS: S1,S2,RRR GI: +BS, NT, no distention Skin: No rash Neuro: motor grossly intact Psych: appropriate affect Objective Data Active Medications Acetaminophen (Acetaminophen 325 Mg Tablet) 650 mg PO Q6H PRN PRN Reason: Pain, Mild (Pain Scale 1-3) Al Hydroxide/Mg Hydroxide (Magnesium Hydrox/Alum Hydrox 30 Ml Oral.Susp) 20 ml PO Q4H PRN PRN Reason: Dyspepsia Albuterol Sulfate (Albuterol Sulfate 90 Mcg 8 Gm Inhaler) 2 puff INHALE Q4H PRN PRN Reason: cough Albuterol/Ipratropium (Albuterol/Iprat 2.5/0.5mg 3 Ml Ampul.Neb) 3 ml INHALE RQ4H WHILE AWAKE [facility] Last Admin: 03/12/22 11:18 Dose: 3 ml Documented By: LARRY Albuterol/Ipratropium (Albuterol/Iprat 2.5/0.5mg 3 Ml Ampul.Neb) 3 ml INHALE RQ4H PRN PRN Reason: Shortness of Breath Amlodipine Besylate (Amlodipine Besylate 5 Mg Tablet) 5 mg PO DAILY [facility]; Protocol Last Admin: 03/12/22 08:38 Dose: Not Given Documented By: SIXTO Non-Admin Reason: NPO Artificial Tears (Artificial Tears 15 Ml Drops) 1 drop EYE-BOTH Q8H PRN PRN Reason: Dry Eyes Aspirin (Aspirin Enteric Coated 81 Mg Tablet.) 81 mg PO DAILY [facility] Last Admin: 03/12/22 08:38 Dose: Not Given Documented By: SIXTO Non-Admin Reason: NPO Bicalutamide (Bicalutamide 50 Mg Tablet) 50 mg PO DAILY [facility] Last Admin: 03/12/22 08:38 Dose: Not Given Documented By: SIXTO Non-Admin Reason: NPO Divalproex Sodium (Divalproex Sodium Er 500 Mg Tab.Er.24h) 1,000 mg PO DAILY [facility] Last Admin: 03/12/22 08:38 Dose: Not Given Documented By: SIXTO Non-Admin Reason: NPO Docusate Sodium (Docusate Sodium 100 Mg Capsule) 100 mg PO DAILY PRN PRN Reason: Constipation Enoxaparin Sodium (Enoxaparin Sodium 40 Mg/0.4 Ml Syringe) 40 mg SUBCUT Q24H [facility] Last Admin: 03/12/22 10:01 Dose: 40 mg Documented By: SIXTO Furosemide (Furosemide 20 Mg Tablet) 20 mg PO DAILY [facility]; Protocol Last Admin: 03/12/22 08:38 Dose: Not Given Documented By: SIXTO Non-Admin Reason: NPO Piperacillin Sod/Tazobactam (Sod 4.5 gm/ Sodium Chloride) 50 mls @ 100 mls/hr IV Q6H [facility] Last Infusion: 03/12/22 10:37 Dose: 0 mls/hr Documented By: SIXTO Dextrose (D5w) 1,000 mls @ 80 mls/hr IVCONT .[id number] [facility] Last Admin: 03/12/22 02:49 Dose: 80 mls/hr Documented By: ANTNIRALI Lactulose (Lactulose 20 Gm/30 Ml Solution) 20 gm PO BID [facility] Last Admin: 03/12/22 08:38 Dose: Not Given Documented By: SIXTO Non-Admin Reason: NPO Methylprednisolone Sodium Succinate (Methylprednisolone Sod Succ 40 Mg/Ml Vial) 40 mg IVPUSH Q12H [facility] Last Admin: 03/12/22 02:36 Dose: 40 mg Documented By: ANTOIC Omeprazole (Omeprazole 20 Mg Capsule.) 20 mg PO DAILY [facility] Last Admin: 03/12/22 08:38 Dose: Not Given Documented By: SIXTO Non-Admin Reason: NPO Ondansetron HCl (Ondansetron Hcl 4 Mg/2 Ml Vial) 4 mg IVPUSH Q8H PRN PRN Reason: Nausea and Vomiting Pharmacy Consult (Consult Rx Perform Med Rec) 1 each MISCELLANE ONCE PRN PRN Reason: Consult order Senna (Sennosides 8.6 Mg Tablet) 8.6 mg PO BEDTIME PRN PRN Reason: Constipation Sodium Chloride (0.9 % Sodium Chloride Flush 3 Ml Syringe) 3 ml IVFLUSH QSHIFT [facility] Last Admin: 03/12/22 10:01 Dose: 3 ml Documented By: SIXTO Labs CBC & Chem 7: 03/11/22 10:43 03/11/22 10:43 Assessment and Plan (1) Respiratory failure with hypoxia and hypercapnia: Status: Acute (2) Chronic obstructive pulmonary disease with (acute) exacerbation: Status: Acute (3) Aspiration pneumonia: Status: Acute Plan Pt is a 59-[id number]-[id number]-male with a PMH significant for COPD, CHF, schizophrenia, epilepsy, prostate cancer, HTN, and tardive dyskenisia, who was sent to the ED from his SNF ([facility]) for SOB. He was admitted for COPD treatment and further workup. # acute hypoxic respiratory failure requiring BiPAP -- secondary to COPD exacerbation -- CHF less likely, BNP 490, no edema, JVD -Has been stable the last several days # acute COPD exacerbation - possibly secondary to aspiration pneunomia, per pulmonology - Zosyn for possible infectious once able to take by mouth change to Augmentin - DuoNeb q4h and prn while awake - continue solumedrol when able to take PO then change to Prednisone -pulmonary input noted -- continue home maintenance inhalers # aspiration pneumonia -- Zosyn 4.5g IV q6, augmentin when able to take PO # elevated BNP -- mildly elevated at 490 -- likely due to COPD exacerbation, less likely CHF -- No edema, JVD # sepsis, severe--resolved -- pt with suspected COPD exacerbation and tachypnia requiring BiPAP -- lactic acid 0.9 -- on broad spectrum abx # history of seizure -- continue home meds # PVCs -- EKG showed frequent and consecutive PVCs -- admitted to telemetry -- troponins flat at 55.3, 54.9 -- repeat EKG # HTN -- continue home meds Vtach--check labs mag, k #Dysphagia--concern for aspiration, NPO and will need to be reassess by speech, IVF to keep hydraatd Code status: Full code DVT prophylaxis: Lovenox Due to pt's need for treatment for respiratory failure he will require continued hospitalization. Possible dc later today if no issues with swallowing Time Spent With Patient Time: Total time managing care of this patient today ____ minutes. Quality Stroke Does the patient have a stroke diagnosis?: No VTE Prior VTE?: No VTE Risk Level:: Medical - moderate - high VTE Device Contraindication: Treatment Not Indicated VTE Drug Contraindication: N/A - Med Ordered
--- NOTE | 2022-03-12 13:22 | MHC.CM.PN ---
per rounds pt to have a speech eval today dc plan remains for pt to return to [facility]
--- NOTE | 2022-03-12 17:38 | MHC.SL.SWA ---
Speech Pathologist Impression: Risk of Aspiration Due to: Neurological Condition History of Pneumonia Reduced Cognition Dysphasia Diet Status: Patient will require 1 to 1 feeding with close monitor: liquids by tsp only, food and liquid in small amounts, use pausing between bites to slow patients rate. Closely monitor for clinical signs of aspiration, discontinue if patient coughs, sounds congested after swallow. Liquid Consistency and Strategies for Safe Swallow: Liquid Intake Recommendation: [place] Thick Liquid Intake Strategies: Liquids by Teaspoon Only Solid Food Consistency: Dietary Recommendations: Pureed (NDD1) Additional Modifications to Solid Foods: Patient will need one to one feed. Recommend liquids by tsp only in small amounts. 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 appears to be taking air in with swallow, as he frequently burps immediately after swallow). Present only in small bites and sips, alternate liquids and solids. Oral Medication Intake: Crushed with Puree Please contact the pharmacy regarding appropriate crushable or liquid drug formulations that are available whenever modified delivery is recommended. Compensatory Strategies and Precautions to be Taken for Safe Swallow: Sitting Upright (90 deg) No Straw Liquids from Spoon Small Bites and Sips Alternate Liquids/Solids Rate of Ingestion Change Supervision While Eating and Drinking for Safe Swallow: Total Assistance (1:1) Foods to Avoid: Sticky or congealed purees. Swallowing Recommended Treatments: Compens. Strategy Educat. Recommendation for Speech: Inpatient Speech Therapy Modified Barium Swallow Study - Outpatient Comment: Patient presents with very disordered/disorganized oral phase of swallow due to Tardive Dyskinesia, is using tongue thrusting, anterior/posterior movement only to propel bolus, and was observed to attempt to mash soft solid with tongue instead of produce a rotary chew. Patient produces a rapid swallow after oral phase, taking air in on swallow, frequently followed by burping (of the air taken in). Patient is at risk for aspiration due to poor coordination of oral and pharyngeal phase of swallow. Recommend start diet of PUREE (NDD1) with NECTAR THICK liquids, Pills crushed in puree. Patient will require 1 to 1 feeding with close monitor: liquids by tsp only, food and liquid in small amounts, use pausing between bites to slow patients rate. Closely monitor for clinical signs of aspiration, discontinue if patient coughs, sounds congested after swallow. Recommend Patient be referred for MBSS as OUTPATIENT to help determine safest, least restrictive diet (e.g. patient at baseline was on Ground Mechanical with thin liquids, today's assessment indicates these consistencies create greater risk of aspiration). , Aravind notified of recommendation by secure text, RN in person. Frequency/Duration: Date Range for Service Req: Timeline to reassess: Industrial Truck Mechanic Clinican/Clinical Fellow: No Supervisory Statement: I have reviewed and agree with the student/clinical fellow's documentation: N/A Speech Language Pathologist: Celina Lozano M.A., CCC-SITE SAFETY REPRESENTATIVE
[2022-03-12] MEDS: Lactulose 20 GM/30 ML SOLUTION PO (22:03)
[2022-03-12] MEDS: Piperacillin Sodium/Tazobactam 4.5 GM in 0.9 % Sodium Chloride 100 ML IV (22:04)
[2022-03-13] MEDS: methylPREDNISolone Sod Succ 40 MG/ML VIAL IVPUSH (02:13)
[2022-03-13] MEDS: Piperacillin Sodium/Tazobactam 4.5 GM in 0.9 % Sodium Chloride 100 ML IV ×2 (03:21→09:57)
[2022-03-13 03:54] VITALS: BP 123/76; PULSE 58; RESP 16; TEMP 36; O2SAT 98
[2022-03-13] MEDS: Albuterol/Iprat 2.5/0.5MG 3 ML AMPUL.NEB INHALE ×2 (07:39→11:26)
[2022-03-13 07:41] VITALS: PULSE 67; RESP 16; O2SAT 94
[2022-03-13 07:43] VITALS: BP 118/76; PULSE 62; RESP 12; TEMP 36.1; O2SAT 99
[2022-03-13] MEDS: 0.9 % Sodium Chloride Flush 3 ML SYRINGE IVFLUSH (09:56)
[2022-03-13] MEDS: Bicalutamide 50 MG TABLET PO (09:56)
[2022-03-13] MEDS: Divalproex Sodium Sprinkles 125 MG CAP.DR.SPR 500 MG PO (09:56)
[2022-03-13] MEDS: amLODIPine Besylate 5 MG TABLET PO (09:56)
[2022-03-13] MEDS: Furosemide 20 MG TABLET PO (09:56)
[2022-03-13] MEDS: Aspirin 81 MG TAB.CHEW PO (09:56)
[2022-03-13] MEDS: Lactulose 20 GM/30 ML SOLUTION PO (09:56)
[2022-03-13 11:11] VITALS: PULSE 60; RESP 12
[2022-03-13] MEDS: Enoxaparin Sodium 40 MG/0.4 ML SYRINGE SUBCUT (11:13)
[2022-03-13 11:17] VITALS: BP 111/68; PULSE 68; RESP 12; TEMP 36.2; O2SAT 97
[2022-03-13 11:24] VITALS: PULSE 68; RESP 12
--- NOTE | 2022-03-13 11:32 | PM.DS ---
DS: Providers Provider Date of Service: 03/13/22 Date of admission: 03/08/22 10:50 Primary care physician: Richard Castillo DO Consults: 03/08/22 11:57 Consult to Pulmonology Routine Consulting Provider: Brad Alvarado Reason for consultation: SOB DS: Diagnosis Discharge Diagnosis (1) Respiratory failure with hypoxia and hypercapnia: Status: Acute (2) Chronic obstructive pulmonary disease with (acute) exacerbation: Status: Acute (3) Aspiration pneumonia: Status: Acute DS: Summary Hospital Course Hospital Course: [id number]-male with a PMH significant for COPD, CHF, schizophrenia, epilepsy, prostate cancer, HTN, and tardive dyskenisia, who was sent to the ED from his SNF ([facility]) for SOB.? Patient is nonverbal at baseline but able to follow commands; history is mostly taken from records and practitioners.? SOB began yesterday, worsening throughout the day until patient became dyspneic and hypoxic with a sat of 88%.? EMS gave him a DuoNeb and Solu-Cortef 100mg IV.? In the ED initial presentation of pt was afebrile and non tachypneic.? Lung exam did reveal diffuse rhonchi.? Labs were significant for normal CBC and PT/INR.? BNP was elevated at 490.? High sensitivity troponin was elevated at 55.3 with a repeat plateaued at 54.9.? CXR found no acute pulmonary processes.? D-dimer was negative.? Patient received albuterol nebulizer, which helped some. At 18:05 patient had a period of lethargy with pinpoint pupils.? Was given 2 mg IV Narcan with no response.? ABG revealed pH of 7.27 and pCO2 of 96.? Customer Engagement Specialist Dr. Nuno recommended BiPAP 20/5 room air 21% for 1 hour and was given Diamox 500 mg IV.? Repeat ABG showed pH 7.43 and pCO2 of 63. Dr. Nuno recommended Diamox 500mg bid and BiPAP at night. Pt will be admitted to telemetry for managament of COPD exacerbation. Hospital course: 31-fufl-fol-male with a PMH significant for COPD, CHF, schizophrenia, epilepsy, prostate cancer, HTN, and tardive dyskenisia, who was sent to the ED from his SNF ([facility]) for SOB-patient was admitted for acute hypoxemic respiratory failure secondary to COPD exacerbation, aspiration pneumonia also. Initially required BiPAP, required IV steroids and antibiotics-seems improving, due to aspiration suspicion patient was also seen by speech and Swallow currently started on pureed diet, due to pureed diet now-Depakote change to sprinkle formulation. Patient probably would benefit from outpatient and MBSS. Further management outpatient. Assessment and plan coordination time spent 50 minutes Time Spent with Patient Time attestation: Total time managing care of this patient today ____ minutes. Discharge coordination time: Greater than 30 minutes Quality: Safe Use of Opioids Does Pt have an Active Cancer Diagnosis on the Problem List?: No Quality: Stroke Does the patient have a stroke diagnosis?: No Physical Exam Vital Signs: Vital Signs: Last Vital Signs Temp 97.1 F 03/13/22 11:17 Pulse 68 03/13/22 11:24 Resp 12 03/13/22 11:24 BP 111/68 03/13/22 11:17 Pulse Ox 97 03/13/22 11:17 O2 Del Method 03/13/22 11:17 O2 Flow Rate 2 03/13/22 11:17 FiO2 22 03/08/22 04:00 Oxygen Flow Rate 21 03/07/22 16:08 BMI result Body Mass Index 35.2 General:alerti Resp:? rhonchi, diminish, no wheezes or rales CVS: S1,S2,RRR GI: +BS, NT, no distention Skin: No rash Neuro:? motor grossly intact Psych: appropriate affect DS: Data Imaging Chest x-ray: Radiologist's impression: ITS Impressions Chest X-Ray 03/07/22 11:11 IMPRESSION: No acute cardiopulmonary process. bllod cultures neg@5 days Discharge Plan Discharge Patient Disposition: Xfer LTC Discharge Diagnosis: acute on chronic hypoxic respriatory failure, copd, pneumonia Referrals: [facility] [Outside] - 1 Week Richard Castillo DO [Primary Care Provider] - 1 Week Discharge Medications: New ipratropium-albuterol 0.5 mg-3 mg(2.5 mg base)/3 mL Solution For Nebulization 3 ml inhalation RQ4H PRN (Reason: Shortness Of Breath) Qty: 1 0RF divalproex 125 mg Capsule, Delayed Rel Sprinkle 500 mg PO BID Qty: 60 0RF prednisone 20 mg tablet 40 mg PO DAILY Qty: 6 0RF Continued amlodipine 5 mg Tablet 5 mg PO DAILY aspirin 81 mg Tablet 81 mg PO DAILY acetaminophen 325 mg Capsule 650 mg PO Q4H PRN (Reason: Pain) bicalutamide 50 mg Tablet 50 mg PO DAILY bisacodyl 5 mg Suppository 10 mg NC DAILY lorazepam [Ativan] 2 mg/mL Solution 1 mg SUBLINGUAL BEDTIME PRN (Reason: Seizure Activity) ibuprofen 200 mg Tablet 600 mg PO Q6H PRN (Reason: Pain) Hold Instructions: Resume on 11/20/21. omeprazole 20 mg Capsule,Delayed Release(Dr/Ec) 20 mg PO DAILY furosemide [Lasix] 20 mg Tablet 20 mg PO QAM levalbuterol tartrate 45 mcg/actuation Hfa Aerosol Inhaler 2 puff INHALATION Q4-6H PRN (Reason: cough) sennosides [senna] 8.6 mg Tablet 8.6 mg PO BEDTIME PRN (Reason: Constipation) guaifenesin 100 mg/5 mL Liquid 200 mg PO Q4H PRN (Reason: Cough) Fleet Enema 19-7 gram/118 mL Enema 118 ml NC DAILY PRN (Reason: Constipation) lactulose 10 gram/15 mL solution 30 ml PO BID Qty: 237 0RF alum-mag hydroxide-simeth [Mylanta] 200-200-20 mg/5 mL Suspension 20 ml PO Q4H PRN (Reason: Dyspepsia) Artificial Tears (PF) 0.1-0.3 % Dropperette 1 drp OPHTHALMIC (EYE) Q8H PRN (Reason: Dry Eyes) amoxicillin-pot clavulanate 875-125 mg tablet 1 tab PO BID Qty: 12 0RF Discontinued divalproex 500 mg Tablet Extended Release 24 Hr 1,000 mg PO DAILY doxycycline hyclate 50 mg capsule 1 cap PO DAILY Discharge Orders: Discharge Order (Routine); Ordered 03/13/22 Ordered By: Kenyetta Stein Diet: pureed diet Activity on Discharge: As tolerated Stand Alone Forms: Patient Portal Discharge page Care Plan Goals: 25-schw-gkv-male with a PMH significant for COPD, CHF, schizophrenia, epilepsy, prostate cancer, HTN, and tardive dyskenisia, who was sent to the ED from his SNF ([facility]) for SOB-patient was admitted for acute hypoxemic respiratory failure secondary to COPD exacerbation, aspiration pneumonia also. Initially required BiPAP, required IV steroids and antibiotics-seems improving, due to aspiration suspicion patient was also seen by speech and Swallow currently started on pureed diet, due to pureed diet now-Depakote change to sprinkle formulation. Patient probably would benefit from outpatient and MBSS. Further management outpatient. Health Concerns: as above. Plan of Treatment: as above. Assessment: as above.
[2022-03-13 11:36] LABS: COVID-19 Test Positive (Negative); IDNOW Serial# BCCEAD1C
--- NOTE | 2022-03-13 13:22 | MHC.CM.PN ---
Patient has been medically cleared for dc to return to LTC at [facility] today @ 2PM, via [facility]. CM attempted to speak with Guardian/Bethanie Pandya @ [phone] but the mailbox was full. Original IMM will be mailed to Bethanie and a copy has been placed on the chart.
--- NOTE | 2022-03-13 13:53 | HO.PM.IMPN ---
Subjective Subjective Date of Service: 03/14/22 Interval History: F/u GI bleed, acute blood loss anemia Review of Systems No active bleed, H/H since discharge and despite transfusion yesterday Physical Exam Vital Signs: Vital Signs: Last Vital Signs Temp 97.1 F 03/13/22 11:17 Pulse 68 03/13/22 11:24 Resp 12 03/13/22 11:24 BP 111/68 03/13/22 11:17 Pulse Ox 97 03/13/22 11:17 O2 Del Method 03/13/22 11:17 O2 Flow Rate 2 03/13/22 11:17 FiO2 22 03/08/22 04:00 Oxygen Flow Rate 21 03/07/22 16:08 BMI result Body Mass Index 35.2 General: AO X 3, no acute distress Resp:? CTA bilateral CVS: S1,S2,RRR GI: +BS, NT, no distention Skin: No rash Neuro:? motor grossly intact Psych: appropriate affect Objective Data Active Medications Acetaminophen (Acetaminophen 325 Mg Tablet) 650 mg PO Q6H PRN PRN Reason: Pain, Mild (Pain Scale 1-3) Al Hydroxide/Mg Hydroxide (Magnesium Hydrox/Alum Hydrox 30 Ml Oral.Susp) 20 ml PO Q4H PRN PRN Reason: Dyspepsia Albuterol Sulfate (Albuterol Sulfate 90 Mcg 8 Gm Inhaler) 2 puff INHALE Q4H PRN PRN Reason: cough Albuterol/Ipratropium (Albuterol/Iprat 2.5/0.5mg 3 Ml Ampul.Neb) 3 ml INHALE RQ4H WHILE AWAKE [facility] Last Admin: 03/13/22 11:26 Dose: 3 ml Documented By: FREDDY Albuterol/Ipratropium (Albuterol/Iprat 2.5/0.5mg 3 Ml Ampul.Neb) 3 ml INHALE RQ4H PRN PRN Reason: Shortness of Breath Amlodipine Besylate (Amlodipine Besylate 5 Mg Tablet) 5 mg PO DAILY [facility]; Protocol Last Admin: 03/13/22 09:56 Dose: 5 mg Documented By: SIXTO Artificial Tears (Artificial Tears 15 Ml Drops) 1 drop EYE-BOTH Q8H PRN PRN Reason: Dry Eyes Aspirin (Aspirin 81 Mg Tab.Chew) 81 mg PO DAILY [facility] Last Admin: 03/13/22 09:56 Dose: 81 mg Documented By: SIXTO Bicalutamide (Bicalutamide 50 Mg Tablet) 50 mg PO DAILY [facility] Last Admin: 03/13/22 09:56 Dose: 50 mg Documented By: SIXTO Divalproex Sodium (Divalproex Sodium Sprinkles 125 Mg Cap) 500 mg PO BID [facility] Last Admin: 03/13/22 09:56 Dose: 500 mg Documented By: SIXTO Docusate Sodium (Docusate Sodium 100 Mg Capsule) 100 mg PO DAILY PRN PRN Reason: Constipation Enoxaparin Sodium (Enoxaparin Sodium 40 Mg/0.4 Ml Syringe) 40 mg SUBCUT Q24H [facility] Last Admin: 03/13/22 11:13 Dose: 40 mg Documented By: SIXTO Furosemide (Furosemide 20 Mg Tablet) 20 mg PO DAILY [facility]; Protocol Last Admin: 03/13/22 09:56 Dose: 20 mg Documented By: SIXTO Piperacillin Sod/Tazobactam (Sod 4.5 gm/ Sodium Chloride) 100 mls @ 100 mls/hr IV Q6H [facility] Last Infusion: 03/13/22 11:10 Dose: 0 mls/hr Documented By: SIXTO Lactulose (Lactulose 20 Gm/30 Ml Solution) 20 gm PO BID [facility] Last Admin: 03/13/22 09:56 Dose: 20 gm Documented By: SIXTO Methylprednisolone Sodium Succinate (Methylprednisolone Sod Succ 40 Mg/Ml Vial) 40 mg IVPUSH Q12H [facility] Last Admin: 03/13/22 13:41 Dose: Not Given Documented By: SIXTO Non-Admin Reason: no access - due to discharge Omeprazole (Omeprazole 20 Mg Capsule.) 20 mg PO DAILY [facility] Last Admin: 03/13/22 09:57 Dose: Not Given Documented By: SIXTO Non-Admin Reason: requires crushed Ondansetron HCl (Ondansetron Hcl 4 Mg/2 Ml Vial) 4 mg IVPUSH Q8H PRN PRN Reason: Nausea and Vomiting Pharmacy Consult (Consult Rx Perform Med Rec) 1 each MISCELLANE ONCE PRN PRN Reason: Consult order Senna (Sennosides 8.6 Mg Tablet) 8.6 mg PO BEDTIME PRN PRN Reason: Constipation Sodium Chloride (0.9 % Sodium Chloride Flush 3 Ml Syringe) 3 ml IVFLUSH QSHIFT DAVID Last Admin: 03/13/22 09:56 Dose: 3 ml Documented By: SIXTO Labs CBC & Chem 7: 03/11/22 10:43 03/11/22 10:43 Labs: Laboratory Results - last 24 hr 03/13/22 11:15 COVID-19 ([facility]) Positive A COVID-19 Clin Com See Note Microbiology Microbiology Results: Microbiology 03/07/22 11:52 Blood Culture - Final Blood - Venous No growth after 5 days. 03/07/22 11:52 Blood Culture - Final Blood - Venous No growth after 5 days. Assessment and Plan (1) Respiratory failure with hypoxia and hypercapnia: Status: Acute (2) Chronic obstructive pulmonary disease with (acute) exacerbation: Status: Acute (3) Aspiration pneumonia: Status: Acute Plan Pt is a 76-kglq-wtv-male with a PMH significant for COPD, CHF, schizophrenia, epilepsy, prostate cancer, HTN, and tardive dyskenisia, who was sent to the ED from his SNF ([facility]) for SOB. He was admitted for COPD treatment and further workup. # acute hypoxic respiratory failure requiring BiPAP -- secondary to COPD exacerbation -- CHF less likely, BNP 490, no edema, JVD -Has been stable the last several days # acute COPD exacerbation - possibly secondary to aspiration pneunomia, per pulmonology - Zosyn for possible infectious once able to take by mouth change to Augmentin - DuoNeb q4h and prn while awake - continue solumedrol when able to take PO then change to Prednisone -pulmonary input noted -- continue home maintenance inhalers # aspiration pneumonia -- Zosyn 4.5g IV q6, augmentin when able to take PO # elevated BNP -- mildly elevated at 490 -- likely due to COPD exacerbation, less likely CHF -- No edema, JVD # sepsis, severe--resolved -- pt with suspected COPD exacerbation and tachypnia requiring BiPAP -- lactic acid 0.9 -- on broad spectrum abx # history of seizure -- continue home meds # PVCs -- EKG showed frequent and consecutive PVCs -- admitted to telemetry -- troponins flat at 55.3, 54.9 -- repeat EKG # HTN -- continue home meds Vtach--check labs mag, k #Dysphagia--concern for aspiration, NPO and will need to be reassess by speech, IVF to keep hydraatd Code status: Full code DVT prophylaxis: Lovenox Due to pt's need for treatment for respiratory failure he will require continued hospitalization. Possible dc later today if no issues with swallowing Time Spent With Patient Time: Total time managing care of this patient today ____ minutes. Quality Stroke Does the patient have a stroke diagnosis?: No VTE Prior VTE?: No VTE Risk Level:: Medical - moderate - high VTE Device Contraindication: Treatment Not Indicated VTE Drug Contraindication: N/A - Med Ordered
--- NOTE | 2022-03-13 14:26 | PC.NURSE ---
Report received from overnight RN, media senior recruiter per MAY. pt due to discharge today, IV and tele removed, belongings returned. EMS to transport. [facility] at [facility].
== END 2022-03-13 14:27 | DRG 871 ==
LOC: HO.ED 18:18 → HO.EDOVER 03-08 11:10 → HO.IMC 03-08 17:00
PROVIDERS: Anesthesiology; Internal Medicine; Admitting Provider Student in an Organized Health Care Education/Training Program; Emergency Provider Emergency Medicine Emergency Medical Services; PCP Hospitalist; Visit Provider Internal Medicine
DX: A41.9 Sepsis, unspecified organism (principal); J69.0 Pneumonitis due to inhalation of food and vomit; J96.01 Acute respiratory failure with hypoxia; U07.1 COVID-19; J96.02 Acute respiratory failure with hypercapnia; J44.1 Chronic obstructive pulmonary disease with (acute) exacerbation; E87.4 Mixed disorder of acid-base balance; R13.10 Dysphagia, unspecified; Z85.46 Personal history of malignant neoplasm of prostate; G24.01 Drug induced subacute dyskinesia; I49.3 Ventricular premature depolarization; R65.20 Severe sepsis without septic shock; G40.909 Epilepsy, unspecified, not intractable, without status epilepticus; Z79.899 Other long term (current) drug therapy
CPT/HCPCS: 36415; 71045; 80048; 80053; 81003; 82140; 82803; 83605; 83690; 83735; 83880; 84100; 84484; 85025; 85027; 85379; 85610; 85730; 87040; 87502; 87635; 92610; 93005; 94640; 94660; 99285; J1650; J1940; J2543; J2920; J2930

== ENCOUNTER 2022-08-08 04:55 | Inpatient (IN) | payer MEDICARE, MEDICAID, SELFPAY ==
[2022-08-08] VITALS (19 sets, daily range): BP systolic 91–124; BP diastolic 63–82; PULSE 61–200; RESP 16–29; TEMP 36.5–38; O2SAT 92–100; BMI 31.6
--- NOTE | 2022-08-08 | ECG_ITS ---
Test Reason : SOB Blood Pressure : / mmHG Vent. Rate : 211 BPM Atrial Rate : 000 BPM P-R Int : 000 ms QRS Dur : 184 ms QT Int : 294 ms P-R-T Axes : 000 100 242 degrees QTc Int : 551 ms Wide QRS tachycardia with occasional Premature ventricular complexes Ventricular tachycardia (ventricular or supraventricular with aberration) Rightward axis Left bundle branch block Abnormal ECG When compared with ECG of 07-MAR-2022 11:09, Wide QRS tachycardia has replaced Sinus rhythm Vent. rate has increased BY 130 BPM Referred By: Generic ED Physician Electronically Signed By:PHILLIP DENNISON
--- NOTE | ~2022-08-08 | XR_ITS ---
EXAMINATION: XR CHEST CLINICAL INFORMATION: V. Tach, hypertension COMPARISON: 03/07/2022 TECHNIQUE: Frontal view of the chest was obtained. FINDINGS: Suboptimal assessment in some regions due to overlying pads. Lung volumes are symmetric. No focal consolidation is seen. Central vasculature is somewhat prominent, without overt edema. No evidence of pneumothorax or definite pleural effusion. The cardiomediastinal contour is unremarkable. No acute osseous findings are seen. XR/XR chest 1V IMPRESSION: Mildly prominent central vasculature, without overt edema.
--- NOTE | ~2022-08-08 | XR_ITS ---
EXAMINATION: XR CHEST CLINICAL INFORMATION: Shortness of breath COMPARISON: 08/08/2022 TECHNIQUE: Frontal view of the chest was obtained. FINDINGS: Lung volumes are symmetric. There is increasing retrocardiac left basilar opacity compared to prior with possible small left pleural effusion. Mild streaky opacity at the right lung base suggests atelectasis. No evidence of pneumothorax. Central vascularity remains prominent. The cardiomediastinal silhouette is stable. No acute osseous findings are seen. XR/XR chest 1V IMPRESSION: Increasing retrocardiac left basilar opacity with possible small pleural effusion. Mild streaky right basilar opacity suggesting atelectasis. Central vascular congestion without overt edema.
[2022-08-08 05:18] LABS: Glucose, Whole Blood 171 mg/dL (60-115)
--- NOTE | 2022-08-08 05:20 | ECG_ITS ---
Test Reason : SOB Blood Pressure : / mmHG Vent. Rate : 086 BPM Atrial Rate : 086 BPM P-R Int : 158 ms QRS Dur : 104 ms QT Int : 366 ms P-R-T Axes : -07 -63 013 degrees QTc Int : 437 ms Sinus rhythm with frequent , and consecutive Premature ventricular complexes in a pattern of bigeminy Incomplete right bundle branch block Abnormal ECG When compared with ECG of 08-AUG-2022 05:02, Sinus rhythm has replaced Wide QRS tachycardia Vent. rate has decreased BY 125 BPM Referred By: Sam Anguiano Electronically Signed By:PHILLIP DENNISON
[2022-08-08 05:45] LABS: MANUAL DIFF FLAG NO
[2022-08-08] MEDS: 0.9 % Sodium Chloride 1,000 ML 999 ML IV (05:52)
[2022-08-08 05:58] LABS: Basophils Percent Auto 0.2 % (0-2); Eosinophils Percent Auto 0.2 % (0-4); Hemoglobin 13.9 g/dl (14.0-18.0); Imm Gran Abs Auto 0.03 X10*3/uL (0.00-0.03); Imm Gran Pct Auto 0.6 % (0.0-0.4); Lymphocytes Absolute Auto 0.6 X10*3/uL (1.2-4.9); Lymphocytes Percent Auto 12.3 % (20-40); Mean Corpuscular HGB Conc 33.1 g/dl (31.0-36.0); Mean Corpuscular Hemoglobin 30.7 pg (27.0-33.0); Mean Corpuscular Volume 92.7 fL (80.0-98.0); Mean Platelet Volume 9.8 fL (9.4-12.4); Monocytes Absolute Auto 0.5 X10*3/uL (0.1-1.2); Monocytes Percent Auto 8.8 % (2-11); Neutrophils Percent Auto 77.9 % (45-73); Platelet Count 143 X10*3/uL (160-400); Red Blood Count 4.53 X10*6/uL (4.60-5.80); Red Cell Distribution Width 13.9 % (11.0-16.0); White Blood Count 5.1 X10*3/uL (4.8-10.8)
[2022-08-08 05:59] LABS: COVID-19 Test Negative (Negative); IDNOW Serial# BCCEAD1C; INTERNATIONAL NORM RATIO 1.2 (0.9-1.1); Prothrombin Time 14.2 SEC (10.0-13.1)
[2022-08-08 06:01] LABS: Partial Thromboplastin Time 36.8 SEC (26.0-36.4)
[2022-08-08 06:08] LABS: Lactic Acid 3.9 mmol/L (0.5-2.0)
[2022-08-08 06:09] LABS: B Type Natriuretic Peptide 463 pg/mL (<100)
[2022-08-08 06:14] LABS: Troponin-I High Sensitivity 841.8 ng/L (<3.5-35.0)
[2022-08-08 06:15] LABS: Alanine Aminotransferase 146 U/L (0-40); Albumin Level 2.3 g/dL (3.5-5.0); Alkaline Phosphatase 43 U/L (39-117); Anion Gap 10 (12-20); Aspartate Amino Transferase 115 U/L (5-37); Bilirubin Direct 0.3 mg/dL (0.0-0.5); Bilirubin Total 0.7 mg/dL (0.0-1.0); Blood Urea Nitrogen 15 mg/dL (9-16); Calcium 5.7 mg/dL (8.4-10.2); Carbon Dioxide 19 mmol/L (22-29); Chloride 118 mmol/L (96-108); Creatinine Clr Calc Pharmacy 65.4; Estimated Glomerular Filt Rate > 60; Glucose Random 116 mg/dL (60-115); Lipase 7 U/L (8-78); Magnesium 1.4 mg/dL (1.6-2.6); Potassium 2.7 mmol/L (3.3-5.1); Sodium 144 mmol/L (135-145); Total Protein 3.7 g/dL (6.5-8.0)
--- NOTE | 2022-08-08 06:15 | PC.NURSE ---
Pt to ED for SVT, HR in the 200s upon arrival to the ED. per EMS, was called for SOB O2 saturations in the 80s. pt placed on 5 LNC and Oxygen levels ivis to 98 to 100%. Pt placed on cardiac monitoring displaying SVT with PVCs, HR in the 200s. Per MD order due to pts illness, [address] put in place, per MD order. urine very scant in nature. Pt appears dehydrated. MD notified of pts urination amount. Pt at moment denies any CP, numbness/tingling to extremities or feeling of faint to N/V.
--- NOTE | 2022-08-08 06:22 | PC.NURSE ---
critical labs reported to MARQUIS Han and Dr Cutler
[2022-08-08] MEDS: Adenosine 6 MG/2 ML VIAL IVPUSH (06:24)
[2022-08-08] MEDS: Magnesium Sulfate/H2O 2 GM/50 ML PIGGYBACK IV ×2 (06:40→07:44)
--- NOTE | 2022-08-08 06:40 | ED.ARRPALP ---
HPI - Arrhythmia/Palpitations General Chief Complaint: Arrhythmia/Palpitations Stated Complaint: sob Time Seen by Provider: 08/08/22 05:31 Source: EMS, RN notes reviewed and old records reviewed Mode of arrival: EMS Limitations: other (Non historian at baseline.) History of Present Illness HPI narrative: 76-year-old male past medical history significant for COPD, CHF, schizophrenia, epilepsy, prostate cancer, HTN, tardive dyskinesia, patient at baseline is nonverbal able to follow command came in from [facility] in [place] for evaluation of vomiting, change mental status and becoming lethargic, hypotensive, and tachycardic. On arrival patient is lethargic partially follow commands, hypotensive blood pressure was 70 over 40s, was heart rate of 200s, EKG revealed wide complex tachycardia patient had a synchronized defibrillation a 200 joule ease in the ED, with improvement of the patient mental status, blood pressure, and heart rate. Patient is none verbal, non historian at baseline. Related Data Home Medications Medication Instructions Recorded Confirmed acetaminophen 325 mg capsule 650 mg PO Q4H PRN Pain 01/19/20 05/29/22 amlodipine 5 mg tablet 5 mg PO DAILY 01/19/20 05/29/22 aspirin 81 mg tablet 81 mg PO DAILY 01/19/20 05/29/22 bicalutamide 50 mg tablet 50 mg PO DAILY 01/19/20 05/29/22 bisacodyl 5 mg rectal suppository 10 mg IL DAILY 01/19/20 05/29/22 furosemide 20 mg tablet (Lasix) 20 mg PO QAM 01/19/20 05/29/22 ibuprofen 200 mg tablet 600 mg PO Q6H PRN Pain 01/19/20 05/29/22 levalbuterol tartrate 45 2 puff inhalation Q4-6H PRN cough 01/19/20 05/29/22 mcg/actuation aerosol inhaler lorazepam 2 mg/mL injection 1 mg sublingual BEDTIME PRN 01/19/20 05/29/22 solution (Ativan) Seizure Activity omeprazole 20 mg capsule,delayed 20 mg PO DAILY 01/19/20 05/29/22 release sennosides 8.6 mg tablet (senna) 8.6 mg PO BEDTIME PRN Constipation 01/19/20 05/29/22 guaifenesin 100 mg/5 mL oral liquid 200 mg PO Q4H PRN Cough 12/21/21 05/29/22 sodium phosphates 19 gram-7 118 ml IL DAILY PRN Constipation 12/21/21 05/29/22 gram/118 mL enema (Fleet Enema) aluminum-mag hydroxide-simethicone 20 ml PO Q4H PRN Dyspepsia 03/07/22 03/07/22 200 mg-200 mg-20 mg/5 mL oral susp dextran 70-hypromellose (PF) 0.1 1 drp ophthalmic (eye) Q8H PRN Dry 03/07/22 05/29/22 %-0.3 % eye drops in a dropperette Eyes (Artificial Tears (PF)) Previous Rx's Medication Instructions Recorded lactulose 10 gram/15 mL oral 30 ml PO BID #237 mL 11/14/21 solution amoxicillin 875 mg-potassium 1 tab PO BID #12 tabs 03/13/22 clavulanate 125 mg tablet divalproex 125 mg capsule,delayed 500 mg PO BID #60 caps 03/13/22 release sprinkle ipratropium 0.5 mg-albuterol 3 mg 3 ml inhalation RQ4H PRN Shortness 03/13/22 (2.5 mg base)/3 mL nebulization Of Breath #1 mL soln prednisone 20 mg tablet 40 mg PO DAILY #6 tabs 03/13/22 Allergies Allergy/AdvReac Type Severity Reaction Status Date / Time tuberculin, purified protein Allergy Unknown UNKNOWN Verified 12/21/21 13:21 deriva [Tuberculin,Purif.Prot.Deriv.] Review of Systems Review of Systems: All other systems are reviewed and are negative Constitutional: Reports as per HPI and Reports no additional constitutional complaints Eyes: Reports as per HPI and Reports no additional eye complaints Reports system reviewed and no additional complaints, except as documented Cardiovascular: Reports as per HPI and Reports no additional cardiovascular complaints Respiratory: Reports as per HPI and Reports no additional respiratory complaints Gastrointestinal: Reports as per HPI and Reports no additional gastrointestinal complaints Genitourinary: Reports no additional female genitourinary complaints Musculoskeletal: Reports no additional musculoskeletal complaints Skin/Breast: Reports system reviewed and no additional complaints, except as docu Psychiatric: Reports no additional psychiatric complaints Endocrine: Reports no additional endocrine complaints Hematologic/Lymphatic: Reports no additional hematologic/lymphatic complaints Allergic/Immunologic: Reports no additional allergic/immunologic complaints Reports system reviewed and no additional complaints, except as documented and Reports Abnormal speech present [facility] Past Medical History Medical History Cervicalgia CHF (congestive heart failure) COPD (chronic obstructive pulmonary disease) Dementia Diabetes type 2, controlled Dysphagia Epilepsy GERD (gastroesophageal reflux disease) Hypertension Muscle weakness (generalized) Pneumonia due to Acinetobacter species Respiratory failure with hypoxia and hypercapnia Schizo affective schizophrenia Spinal stenosis Family History Family History Mother Cancer Social History Social History Household Members: None Housing: Half-Way Housing Other:: non verbal Are you a primary vision care associate to a significant other at home: No Unable to assess alcohol history related to: Unable to respond Alcohol intake: unknown Patient Tobacco Use Status: Never used Tobacco Second Hand Smoke Exposure: No Advance Directives: No Advance Directives Information Provided: No service: No Current occupational status: disabled Physical Exam Vital Signs: Vital Signs: Last Vital Signs Temp 97.7 F 08/08/22 06:00 Pulse 69 08/08/22 06:00 Resp 16 08/08/22 06:00 BP 122/74 08/08/22 06:00 Pulse Ox 100 08/08/22 06:00 O2 Del Method Room Air 08/08/22 06:00 O2 Flow Rate 6 08/08/22 06:00 Oxygen Flow Rate 6 08/08/22 05:41 BMI result Body Mass Index 31.6 Vital signs have been reviewed as appeared to be correct. Blood pressure low. Heart rate elevated, Respiration rate normal. Temperature normal. Oxygen saturation normal. Appearance: Lethargic with labored breathing. Head: Normal external exam. Normocephalic. Atraumatic. No Petersen signs noted. No raccoon eyes noted Eyes: PERRLA. EOMI. Conjunctiva and sclera normal. Eyelids normal. ENT: TM's Normal. Pharynx normal. Uvula midline. Moist mucous membranes. No trismus noted. No drooling noted. No muffled voice noted. Neck: Normal inspection. Neck supple. FROM. No adenopathy. Thyroid Normal. No meningeal signs. No neck mass noted. CVS: Normal heart rate and rhythm. Heart sound normal. No murmurs noted. Pulses normal throughout. Respiratory: No respiratory distress. Painless inspiration. Breath sounds normal. No wheezes/rales/rhonchi noted. Chest nontender. No accessory muscle usage noted or decreased air movement noted. Abdomen: Soft and nontender. Bowel sounds normal in all 4 quadrants. No distention noted. No organomegaly noted. No visible injury noted. Back: No CVA tenderness. Full range of motion noted. Skin: Skin warm and dry. Normal skin color. Normal skin turgor. No rashes/lesions/lacerations noted. Extremities: No lower extremity edema. Extremities exhibit normal range of motion. Extremities nontender. Neuro: Lethargic, open his eyes to verbal stimuli. Cranial nerve exam: II-XII are grossly intact No motor deficit. No sensory deficit. Reflexes normal. Course Course Course Narrative: 76-year-old male from [facility], patient is a full code came in with unstable V-tach that was defibrillated in the emergency department and was able to break the V-tach to sinus rhythm with normalization of blood pressure and patient come back to his baseline mental status. Labs revealing hypomagnesemia, with elevated troponin. Case discussed with Dr. Zavaleta and patient was accepted to ICU. Medications Administered Discontinued Medications Generic Name Dose Route Start Last Admin Trade Name Freq PRN Reason Stop Dose Admin Adenosine 6 mg 08/08/22 06:09 08/08/22 06:24 Adenosine 6 Mg/2 Ml Vial IVPUSH 08/08/22 06:10 6 mg ONCE ONE Administration Sodium Chloride 1,000 mls @ 999 mls/hr 08/08/22 05:32 08/08/22 05:52 Ns IV 08/08/22 06:32 999 mls/hr .Q1H1M ONE Administration Medical Decision Making Differential Diagnosis Differential Diagnoses: The differential diagnosis associated with the presentation includes (ACS, electrolyte abnormalities, unstable wide complex tachycardia, severe anemia.) Admission/Observation Consideration of admission/observation: Escalation of care including admission/observation considered Consult Healthcare Provider Management of the patient was discussed with: Skill Training Program Coordinator () Lab Data MDM Lab Attestation statement: I reviewed the patient's lab results. 08/08/22 05:38 08/08/22 05:38 Labs: Lab Results 08/08/22 08/08/22 08/08/22 Range/Units 05:06 05:38 05:38 WBC 5.1 (4.8-10.8) X10*3/uL RBC 4.53 L (4.60-5.80) X10*6/uL Hgb 13.9 L (14.0-18.0) g/dl Hct 42.0 (42.0-52.0) % MCV 92.7 (80.0-98.0) fL MCH 30.7 (27.0-33.0) pg MCHC 33.1 (31.0-36.0) g/dl RDW 13.9 (11.0-16.0) % Plt Count 143 L D (160-400) X10*3/uL MPV 9.8 (9.4-12.4) fL Immature Gran % (Auto) 0.6 H (0.0-0.4) % Neut % (Auto) 77.9 H (45-73) % Lymph % (Auto) 12.3 L (20-40) % [place] % (Auto) 8.8 (2-11) % Eos % (Auto) 0.2 (0-4) % Baso % (Auto) 0.2 (0-2) % Lymph # (Auto) 0.6 L (1.2-4.9) X10*3/uL [place] # (Auto) 0.5 (0.1-1.2) X10*3/uL Eos # (Auto) 0.0 (0.0-0.4) X10*3/uL Baso # (Auto) 0.0 (0.0-0.2) X10*3/uL Abs Immat Gran (auto) 0.03 (0.00-0.03) X10*3/uL Absolute Neuts (auto) 4.0 (2.0-8.3) x10*3/uL Absolute Nucleated RBC 0.000 (0.0-0.012) X10*3/uL Nucleated RBC % (auto) 0.0 (0.0-0.2) /100WBC PT (10.0-13.1) SEC INR (0.9-1.1) APTT (26.0-36.4) SEC Sodium 144 (135-145) mmol/L Potassium 2.7 L D (3.3-5.1) mmol/L Chloride 118 H (96-108) mmol/L Carbon Dioxide 19 L (22-29) mmol/L Anion Gap 10 L (12-20) BUN 15 (9-16) mg/dL Creatinine 0.97 (0.5-1.4) mg/dL Estim Creat Clear Calc 65.4 Estimated GFR > 60 POC Glucose 171 H (60-115) mg/dL Random Glucose 116 H (60-115) mg/dL Lactic Acid (0.5-2.0) mmol/L Calcium 5.7 L* D (8.4-10.2) mg/dL Magnesium 1.4 L* (1.6-2.6) mg/dL Total Bilirubin 0.7 (0.0-1.0) mg/dL Direct Bilirubin 0.3 (0.0-0.5) mg/dL AST 115 H (5-37) U/L ALT 146 H (0-40) U/L Alkaline Phosphatase 43 (39-117) U/L Troponin I High Sens (<3.5-35.0) ng/L B-Natriuretic Peptide (<100) pg/mL Total Protein 3.7 L (6.5-8.0) g/dL Albumin 2.3 L (3.5-5.0) g/dL Lipase 7 L (8-78) U/L COVID-19 (COLIN) (Negative) COVID-19 Clin Com 08/08/22 08/08/22 08/08/22 Range/Units 05:38 05:38 05:38 WBC (4.8-10.8) X10*3/uL RBC (4.60-5.80) X10*6/uL Hgb (14.0-18.0) g/dl Hct (42.0-52.0) % MCV (80.0-98.0) fL MCH (27.0-33.0) pg MCHC (31.0-36.0) g/dl RDW (11.0-16.0) % Plt Count (160-400) X10*3/uL MPV (9.4-12.4) fL Immature Gran % (Auto) (0.0-0.4) % Neut % (Auto) (45-73) % Lymph % (Auto) (20-40) % [place] % (Auto) (2-11) % Eos % (Auto) (0-4) % Baso % (Auto) (0-2) % Lymph # (Auto) (1.2-4.9) X10*3/uL [place] # (Auto) (0.1-1.2) X10*3/uL Eos # (Auto) (0.0-0.4) X10*3/uL Baso # (Auto) (0.0-0.2) X10*3/uL Abs Immat Gran (auto) (0.00-0.03) X10*3/uL Absolute Neuts (auto) (2.0-8.3) x10*3/uL Absolute Nucleated RBC (0.0-0.012) X10*3/uL Nucleated RBC % (auto) (0.0-0.2) /100WBC PT (10.0-13.1) SEC INR (0.9-1.1) APTT (26.0-36.4) SEC Sodium (135-145) mmol/L Potassium (3.3-5.1) mmol/L Chloride (96-108) mmol/L Carbon Dioxide (22-29) mmol/L Anion Gap (12-20) BUN (9-16) mg/dL Creatinine (0.5-1.4) mg/dL Estim Creat Clear Calc Estimated GFR POC Glucose (60-115) mg/dL Random Glucose (60-115) mg/dL Lactic Acid 3.9 H* (0.5-2.0) mmol/L Calcium (8.4-10.2) mg/dL Magnesium (1.6-2.6) mg/dL Total Bilirubin (0.0-1.0) mg/dL Direct Bilirubin (0.0-0.5) mg/dL AST (5-37) U/L ALT (0-40) U/L Alkaline Phosphatase (39-117) U/L Troponin I High Sens 841.8 H* D (<3.5-35.0) ng/L B-Natriuretic Peptide 463 H (<100) pg/mL Total Protein (6.5-8.0) g/dL Albumin (3.5-5.0) g/dL Lipase (8-78) U/L COVID-19 (COLIN) (Negative) COVID-19 Clin Com 08/08/22 08/08/22 Range/Units 05:38 05:38 WBC (4.8-10.8) X10*3/uL RBC (4.60-5.80) X10*6/uL Hgb (14.0-18.0) g/dl Hct (42.0-52.0) % MCV (80.0-98.0) fL MCH (27.0-33.0) pg MCHC (31.0-36.0) g/dl RDW (11.0-16.0) % Plt Count (160-400) X10*3/uL MPV (9.4-12.4) fL Immature Gran % (Auto) (0.0-0.4) % Neut % (Auto) (45-73) % Lymph % (Auto) (20-40) % [place] % (Auto) (2-11) % Eos % (Auto) (0-4) % Baso % (Auto) (0-2) % Lymph # (Auto) (1.2-4.9) X10*3/uL [place] # (Auto) (0.1-1.2) X10*3/uL Eos # (Auto) (0.0-0.4) X10*3/uL Baso # (Auto) (0.0-0.2) X10*3/uL Abs Immat Gran (auto) (0.00-0.03) X10*3/uL Absolute Neuts (auto) (2.0-8.3) x10*3/uL Absolute Nucleated RBC (0.0-0.012) X10*3/uL Nucleated RBC % (auto) (0.0-0.2) /100WBC PT 14.2 H (10.0-13.1) SEC INR 1.2 H (0.9-1.1) APTT 36.8 H (26.0-36.4) SEC Sodium (135-145) mmol/L Potassium (3.3-5.1) mmol/L Chloride (96-108) mmol/L Carbon Dioxide (22-29) mmol/L Anion Gap (12-20) BUN (9-16) mg/dL Creatinine (0.5-1.4) mg/dL Estim Creat Clear Calc Estimated GFR POC Glucose (60-115) mg/dL Random Glucose (60-115) mg/dL Lactic Acid (0.5-2.0) mmol/L Calcium (8.4-10.2) mg/dL Magnesium (1.6-2.6) mg/dL Total Bilirubin (0.0-1.0) mg/dL Direct Bilirubin (0.0-0.5) mg/dL AST (5-37) U/L ALT (0-40) U/L Alkaline Phosphatase (39-117) U/L Troponin I High Sens (<3.5-35.0) ng/L B-Natriuretic Peptide (<100) pg/mL Total Protein (6.5-8.0) g/dL Albumin (3.5-5.0) g/dL Lipase (8-78) U/L COVID-19 (COLIN) Negative (Negative) COVID-19 Clin Com See Note Independent Interpretation I performed an independent interpretation of an: EKG (1. Rapid wide complex tachycardia. EKG 2. Normal sinus rhythm with bigeminy. ) and Plain X-Ray Radiology Impression Discussion of test interpretation with radiology: I have reviewed the radiologist's reading. Independent Historian Clinical information obtained from an independent historian. History obtained from or confirmed by: EMS and Other (longterm) Procedures Central Line Placement Right Femoral: Time Out Performed: Yes Patient Placed on Monitor/Pulse Ox: Yes MD Prep: mask, gown and gloves Central Line Prep: Povidone-Iodine 1% Local Anesthetic: lidocaine 1% Amount of anesthesia used (mL): 3 Ultrasound Used for Placement: Yes Central Line Lumen Inserted: triple Post Procedure: sutured in place, good blood return, all ports aspirated, flushed, capped and sterile dressing applied Patient Tolerated Procedure: well Complications: none Critical Care Time Critical Care Time Critical Care Time: Yes Total Critical Care Time: 70 Attestation: I spent 60 minutes providing critical care service to the patient, this including time spent at the bedside to evaluate the patient, reassess the patient, monitoring vital signs, review labs, and radiographic studies, counseling the patient/family, discussing the case with consultants, disposition the patient. Discharge Plan Discharge Clinical Impression: Ventricular tachycardia, Hypotension, Hypomagnesemia, Non-ST elevated myocardial infarction Patient Disposition: Home, Self-Care Prescriptions: No Action amlodipine 5 mg Tablet 5 mg PO DAILY aspirin 81 mg Tablet 81 mg PO DAILY acetaminophen 325 mg Capsule 650 mg PO Q4H PRN (Reason: Pain) bicalutamide 50 mg Tablet 50 mg PO DAILY bisacodyl 5 mg Suppository 10 mg IL DAILY lorazepam [Ativan] 2 mg/mL Solution 1 mg SUBLINGUAL BEDTIME PRN (Reason: Seizure Activity) ibuprofen 200 mg Tablet 600 mg PO Q6H PRN (Reason: Pain) Hold Instructions: Resume on 11/20/21. omeprazole 20 mg Capsule,Delayed Release(Dr/Ec) 20 mg PO DAILY furosemide [Lasix] 20 mg Tablet 20 mg PO QAM levalbuterol tartrate 45 mcg/actuation Hfa Aerosol Inhaler 2 puff INHALATION Q4-6H PRN (Reason: cough) sennosides [senna] 8.6 mg Tablet 8.6 mg PO BEDTIME PRN (Reason: Constipation) guaifenesin 100 mg/5 mL Liquid 200 mg PO Q4H PRN (Reason: Cough) Fleet Enema 19-7 gram/118 mL Enema 118 ml IL DAILY PRN (Reason: Constipation) lactulose 10 gram/15 mL solution 30 ml PO BID Qty: 237 0RF alum-mag hydroxide-simeth 200-200-20 mg/5 mL Suspension 20 ml PO Q4H PRN (Reason: Dyspepsia) Artificial Tears (PF) 0.1-0.3 % Dropperette 1 drp OPHTHALMIC (EYE) Q8H PRN (Reason: Dry Eyes) divalproex 125 mg Capsule, Delayed Rel Sprinkle 500 mg PO BID Qty: 60 0RF prednisone 20 mg tablet 40 mg PO DAILY Qty: 6 0RF amoxicillin-pot clavulanate 875-125 mg tablet 1 tab PO BID Qty: 12 0RF ipratropium-albuterol 0.5 mg-3 mg(2.5 mg base)/3 mL Solution For Nebulization 3 ml inhalation RQ4H PRN (Reason: Shortness Of Breath) Qty: 1 0RF
[2022-08-08] MEDS: Potassium Chloride/H20 40 MEQ/100 ML PIGGYBACK 50 MEQ IV (06:47)
--- NOTE | 2022-08-08 07:00 | CA_ITS ---
Transthoracic Echocardiogram Patient (Last, First, Middle): Prateek Lee, Gender: Male Date of : 1945 Age: 76 Procedure Date: 08/08/2022 Procedure Type: Transthoracic Echocardiogram Location: ER Height: 165.1 cm Weight: 86.18 kg BSA: 1.94 m2 Heart Rate: 69 bpm BP: 101 / 77 mmHg Stereo Plotter Operator: RACHID Referring MD: Derik Zavaleta MD Symptoms: VTach Study Quality: Fair ECG Rhythm: Sinus Conclusions: - Severely increased left ventricular cavity size. - The left ventricular systolic function is severely decreased. The visually estimated ejection fraction is <10%. - No obvious valvular pathology seen on this study. Findings Procedure Information Contrast agent, definity, is being given per protocol without apparent complications. The quality of the study was despite the use of contrast and endocardial definition remains poor. Left Ventricle Severely increased left ventricular cavity size. There is normal left ventricular wall thickness. The left ventricular systolic function is severely decreased. The visually estimated ejection fraction is <10%. There is severe global hypokinesis. Probable advanced diastolic dysfunction, but not satisfying all parameters. Right Ventricle Normal right ventricular cavity size. There is severely decreased right ventricular systolic function. Atria Both atria are normal in size. Aortic Valve There is a normal trileaflet aortic valve. There is no aortic valve stenosis. There is no aortic valve regurgitation. Mitral Valve The posterior mitral leaflet has restricted mobility. There is no mitral valve regurgitation. There is no mitral valve stenosis. Pulmonic Valve There is trace to mild pulmonic valve regurgitation. Tricuspid Valve There is mild tricuspid valve regurgitation. There is no evidence of pulmonary hypertension. Great Vessels The asc aorta is normal in size. Venous The inferior vena cava is dilated and collapses less than 50% with inspiration. Pericardium/Pleural There is no evidence of pericardial effusion. Prior Study Comparison Changes noted compared to prior study dated: 12/09/2017. Decrease in LVEF. Recommendations, Care & Conclusions No obvious valvular pathology seen on this study. Measurements 2D Linear Measurements IVSd: 0.77 0.6-0.9/0.6-1.0 cm LVIDd: 6.57 3.9-5.3/4.2-5.9 cm LVIDd Index: 3.39 2.4-3.2/2.2-3.1 cm/m2 LVIDs: 6.03 2.0-3.6 cm LVPWd: 0.68 0.7-1.1 cm LA Diam: 4.30 2.7-3.8/3.0-4.0 cm LAIDs Index: 2.22 1.5-2.3 cm/m2 LV Mass: 241.75 67-162/88-224 g LV Mass Index: 124.61 43-95/49-115 g/m2 LVOT Diam: 2.30 3.0+(-)1.3 cm 2D Systolic Function EF 4C: 0.95 >55% EF 2C: 15.00 >55% EF BiP: 6.83 >55% Mitral Valve MV Pk E: 0.60 MV PK A: 0.19 MV Decel Time: 150.00 E/A: 3.10 E'Medial: 3.09 E/E' Med: 19.50 PHT: 44.00 MVA PHT: 5.00 Decel [place]: 4.03 Aortic Valve AoV Pk Jarrod: 0.64 AoV Mn Jarrod: 0.45 AoV VTI: 0.10 AoV Pk Grad: 2.00 Aov Mn Grad: 1.00 BRIAN Cont.VTI: 3.05 LVOT LVOT Pk Jarrod: 0.46 LVOT Mn Jarrod: 0.31 LVOT VTI: 0.07 LVOT Pk Grad: 1.00 LVOT Mn Grad: 0.00 LVOT Diam: 2.30 LVOT Area: 4.15 Diastolic Function MV Pk E: 0.60 MV Pk A: 0.19 E/A: 3.10 E'Medial: 3.09 E/E' Med: 19.50 Right Ventricle TAPSE (mm): 9.00 TVS' Jarrod: 5.20 Tricuspid Valve TR Pk Jarrod: 2.27 TR Pk Grad: 21.00 RA Press: 15.00 RVSP: 36.00 Great Vessels Aorta Sinus of Valsalva: 3.40 2.0-3.5 cm Ao Asc: 3.70 2.1-3.4 cm Pulmonary Valve PV Pk Jarrod: 0.41 Peak PV Grad: 1.00 Updated in Other Vendor System with Status of Final Abhishek Devries MD electronically signed on 08/08/2022 10:44:18 AM with status of Final
[2022-08-08 07:44] LABS: Reflex Lactate? Lactic Acid Added
--- NOTE | 2022-08-08 07:58 | P.HPCC_ITS ---
History of Present Illness Date of Service: 08/08/22 Attending physician on admission: Derik Zavaleta Chief Complaint: Acute respiratory distress 76-year-old male care 1 resident background history of hypertension and COPD with chronic tardive dyskinesia was noted to be in respiratory distress brought in by EMS and he was hypotensive thus hemodynamically unstable and he was in ventricular tachycardia cardioverted x1 successfully and started on amiodarone and he did not require intubation but my bedside echo showed he had severely depressed LV function consistent with congestive cardiomyopathy ejection fraction in the mid teens and with that we supported him mechanically with the BiPAP and he did have a at least a mild acute kidney injury with a baseline creatinine normally 0.67 rising to 1.18 he has since had marginal but adequate urine output so technically nonoliguric at 25 cc/hour no clinical signs of congestion at this point but very difficult to gauge his volume status without a CVP to measure because he does not look total body fluid overloaded I believe this is just lung 3rd spacing in 0 as a result of the acute coronary event but at this point on BiPAP it is improving Review of Systems Review of Systems: Yes Unobtainable due to mental status PMFSH Past Medical History Medical History Cervicalgia CHF (congestive heart failure) COPD (chronic obstructive pulmonary disease) Dementia Diabetes type 2, controlled Dysphagia Epilepsy GERD (gastroesophageal reflux disease) Hypertension Muscle weakness (generalized) Pneumonia due to Acinetobacter species Respiratory failure with hypoxia and hypercapnia Schizo affective schizophrenia Spinal stenosis Family History Family History Mother Cancer Social History Social History Household Members: None Housing: [employer] Housing Other:: non verbal Are you a primary healthcare consulting manager to a significant other at home: No Unable to assess alcohol history related to: Unknown Alcohol intake: unknown Patient Tobacco Use Status: Never used Tobacco Second Hand Smoke Exposure: No Use of substances other than those prescribed or required for medical reasons: Unknown Currently Displaying Signs/Symptoms of Drug Intoxication Withdrawal: No Advance Directives: No Advance Directives Information Provided: No Recently lost weight without trying: Unsure How much weight loss: Unsure service: No Current occupational status: disabled Meds Allergies Allergy/AdvReac Type Severity Reaction Status Date / Time tuberculin, purified protein Allergy Unknown UNKNOWN Verified 12/21/21 13:21 deriva [Tuberculin,Purif.Prot.Deriv.] Active Medications: Current Medications Potassium Chloride (Potassium Chloride/H20) 40 meq in 100 mls @ 50 mls/hr IV ONCE ONE Stop: 08/08/22 08:20 Last Admin: 08/08/22 06:47 Dose: 50 mls/hr Magnesium Sulfate (Magnesium Sulfate/H2o) 2 gm in 50 mls @ 25 mls/hr IV ONCE ONE Stop: 08/08/22 08:36 Last Admin: 08/08/22 07:44 Dose: 25 mls/hr Pharmacy Consult (Consult Rx Perform Med Rec) 1 each MISCELLANE ONCE PRN PRN Reason: Consult order Home Medications Medication Instructions Recorded Confirmed Last Taken Type acetaminophen 325 mg capsule 650 mg PO Q4H PRN Pain 01/19/20 08/08/22 Unknown History amlodipine 5 mg tablet 5 mg PO DAILY 01/19/20 08/08/22 Unknown History bicalutamide 50 mg tablet 50 mg PO DAILY 01/19/20 08/08/22 Unknown History furosemide 20 mg tablet (Lasix) 20 mg PO DAILY 01/19/20 08/08/22 Unknown History ibuprofen 200 mg tablet 600 mg PO Q6H PRN Pain 01/19/20 08/08/22 Unknown History levalbuterol tartrate 45 2 puff inhalation Q4H PRN cough 01/19/20 08/08/22 Unknown History mcg/actuation aerosol inhaler lorazepam 2 mg/mL injection 1 mg IM Q5M PRN Seizure Activity 01/19/20 08/08/22 Unknown History solution (Ativan) omeprazole 20 mg capsule,delayed 20 mg PO DAILY@0630 01/19/20 08/08/22 Unknown History release sennosides 8.6 mg tablet (senna) 8.6 mg PO DAILY PRN Constipation 01/19/20 08/08/22 Unknown History guaifenesin 100 mg/5 mL oral liquid 200 mg PO Q6H PRN Cough 12/21/21 08/08/22 Unknown History sodium phosphates 19 gram-7 118 ml SC DAILY PRN Constipation 12/21/21 08/08/22 Unknown History gram/118 mL enema (Fleet Enema) aluminum-mag hydroxide-simethicone 20 ml PO Q4H PRN Dyspepsia 03/07/22 08/08/22 Unknown History 200 mg-200 mg-20 mg/5 mL oral susp dextran 70-hypromellose (PF) 0.1 1 drp ophthalmic (eye) Q8H PRN Dry 03/07/22 08/08/22 Unknown History %-0.3 % eye drops in a dropperette Eyes (Artificial Tears (PF)) aspirin 81 mg tablet,delayed 81 mg PO DAILY 08/08/22 08/08/22 Unknown History release bisacodyl 10 mg rectal suppository 10 mg SC DAILY PRN Constipation 08/08/22 08/08/22 Unknown History divalproex 125 mg capsule,delayed 1,000 mg PO DAILY 08/08/22 08/08/22 Unknown History release sprinkle doxycycline hyclate 50 mg capsule 50 mg PO DAILY 08/08/22 08/08/22 Unknown History ergocalciferol (vitamin D2) 1,250 1,250 mcg PO DAILY 08/08/22 08/08/22 Unknown History mcg (50,000 unit) capsule lactulose 10 gram/15 mL oral 30 ml PO TID 08/08/22 08/08/22 Unknown History solution levalbuterol tartrate 45 2 puff inhalation BID 08/08/22 08/08/22 Unknown History mcg/actuation aerosol inhaler sennosides 8.6 mg tablet (senna) 8.6 mg PO BID 08/08/22 08/08/22 Unknown History Physical Exam Vital Signs: Vital Signs: Last Vital Signs Temp 97.7 F 08/08/22 06:00 Pulse 69 08/08/22 06:00 Resp 16 08/08/22 06:00 BP 122/74 08/08/22 06:00 Pulse Ox 100 08/08/22 06:00 O2 Del Method Room Air 08/08/22 06:00 O2 Flow Rate 6 08/08/22 06:00 Oxygen Flow Rate 6 08/08/22 05:41 BMI result Body Mass Index 31.6 Despite some language barrier he he does seem to understand what we say to him when we explained things Awaken tolerating BiPAP with a much reduced respiratory effort Mild end-expiratory wheezing Bedside echo demonstrating 15% ejection fraction with severe dilatation and global hypokinesis and also dilatation and hypokinesis of the right ventricle Abdomen soft benign No acrocyanosis no skin breakdown Results Labs 08/08/22 05:38 08/08/22 05:38 Labs: Laboratory Results - last 24 hr 08/08/22 08/08/22 08/08/22 05:06 05:38 05:38 MCV 92.7 MCH 30.7 MCHC 33.1 RDW 13.9 Plt Count 143 L D MPV 9.8 Immature Gran % (Auto) 0.6 H Neut % (Auto) 77.9 H Lymph % (Auto) 12.3 L [place] % (Auto) 8.8 Eos % (Auto) 0.2 Baso % (Auto) 0.2 Lymph # (Auto) 0.6 L [place] # (Auto) 0.5 Eos # (Auto) 0.0 Baso # (Auto) 0.0 Abs Immat Gran (auto) 0.03 Absolute Neuts (auto) 4.0 Absolute Nucleated RBC 0.000 Nucleated RBC % (auto) 0.0 PT INR APTT Anion Gap 10 L Estim Creat Clear Calc 65.4 Estimated GFR > 60 POC Glucose 171 H Random Glucose 116 H Lactic Acid Calcium 5.7 L* D Magnesium 1.4 L* Total Bilirubin 0.7 Direct Bilirubin 0.3 AST 115 H ALT 146 H Alkaline Phosphatase 43 Troponin I High Sens B-Natriuretic Peptide Total Protein 3.7 L Albumin 2.3 L Lipase 7 L COVID-19 ([facility]) [place] 08/08/22 08/08/22 08/08/22 05:38 05:38 05:38 MCV MCH MCHC RDW Plt Count MPV Immature Gran % (Auto) Neut % (Auto) Lymph % (Auto) [place] % (Auto) Eos % (Auto) Baso % (Auto) Lymph # (Auto) [place] # (Auto) Eos # (Auto) Baso # (Auto) Abs Immat Gran (auto) Absolute Neuts (auto) Absolute Nucleated RBC Nucleated RBC % (auto) PT INR APTT Anion Gap Estim Creat Clear Calc Estimated GFR POC Glucose Random Glucose Lactic Acid 3.9 H* Calcium Magnesium Total Bilirubin Direct Bilirubin AST ALT Alkaline Phosphatase Troponin I High Sens 841.8 H* D B-Natriuretic Peptide 463 H Total Protein Albumin Lipase COVID-19 ([facility]) [facility] 08/08/22 08/08/22 05:38 05:38 MCV MCH MCHC RDW Plt Count MPV Immature Gran % (Auto) Neut % (Auto) Lymph % (Auto) [place] % (Auto) Eos % (Auto) Baso % (Auto) Lymph # (Auto) [place] # (Auto) Eos # (Auto) Baso # (Auto) Abs Immat Gran (auto) Absolute Neuts (auto) Absolute Nucleated RBC Nucleated RBC % (auto) PT 14.2 H INR 1.2 H APTT 36.8 H Anion Gap Estim Creat Clear Calc Estimated GFR POC Glucose Random Glucose Lactic Acid Calcium Magnesium Total Bilirubin Direct Bilirubin AST ALT Alkaline Phosphatase Troponin I High Sens B-Natriuretic Peptide Total Protein Albumin Lipase COVID-19 ([facility]) Negative COVID-19 Clin Com See Note Imaging Radiologist's Impressions: Impressions Chest X-Ray 08/08/22 06:00 IMPRESSION: Mildly prominent central vasculature, without overt edema. Assessment and Plan (1) Acute kidney injury: Status: Acute (2) Ischemic congestive cardiomyopathy: Status: Acute (3) Acute coronary syndrome with high troponin: Status: Acute (4) Ventricular tachycardia: Status: Acute (5) Hypotension: Status: Acute (6) Hypomagnesemia: Status: Acute (7) Non-ST elevated myocardial infarction: Status: Acute (8) Aspiration pneumonia: Status: Acute (9) Pneumonia due to Acinetobacter species: Status: Acute (10) Respiratory failure with hypoxia and hypercapnia: Status: Acute (11) Prostate cancer: Status: Acute (12) Prostate cancer: Status: Acute (13) Altered mental status: Status: Acute (14) CHF (congestive heart failure): Status: Acute (15) Hypertension: Status: Acute (16) Tardive dyskinesia: Status: Acute (17) Chronic obstructive pulmonary disease with (acute) exacerbation: Status: Acute Plan Plan therefore is to maintain him on BiPAP for as long as we can for the sake of mechanical unloading try to clinically assess his volume status along the way buttock right now keeping him NPO because of the need for BiPAP and if need be CVP placement in a can be done but will try to avoid and he will remain on IV amiodarone by protocol Time Spent With Patient Time: Total time managing care of this patient today 60____ minutes.
[2022-08-08 08:21] LABS: Venous Blood Gas Refer to POC result
[2022-08-08 08:23] LABS: VBG Base Excess 0.8 mmol/L; VBG HCO3 29 mmol/L (22-26); VBG pCO2 64 mmHg; VBG pH 7.26 (7.32-7.43); VBG pO2 49 mmHg
[2022-08-08 08:33] LABS: Appearance Urine Cloudy; Color Urine Dark Yellow; Glucose Urine UA Negative (Negative); Leukocyte Esterase Urine Small (1+) (Negative); Nitrite Urine Negative (Negative); Specific Gravity - Urine 1.025 (1.005-1.025); UMIC TRIGGER UACC YES; Urine Blood Negative (Negative); Urine Ketones Trace mg/dL (Negative); Urine Protein 300 (3+) mg/dL (Neg-Trace)
[2022-08-08 08:36] LABS: ~Lactic Acid-LAB USE ONLY 2.7 mmol/L (0.5-2.0)
[2022-08-08 08:48] LABS: RBC Urine 0-2 /HPF (0-2); UACC Culture Trigger YES; WBC Urine 0-5 /HPF (0-5)
[2022-08-08 08:49] LABS: Bacteria Urine Trace (None Seen)
[2022-08-08] MEDS: Calcium Gluconate/NaCl,Iso-Osm 1 GM/50 ML PLAST..BAG IV (08:56)
[2022-08-08] MEDS: Famotidine/PF 20 MG/2 ML VIAL IVPUSH ×2 (08:56→21:03)
[2022-08-08] MEDS: KCl 40 mEq in 5% Dex/0.45% Sod 40 MEQ/1,000 ML IV.SOLN 80 MEQ IVCONT (08:56)
[2022-08-08] MEDS: Enoxaparin Sodium 40 MG/0.4 ML SYRINGE SUBCUT (08:56)
--- NOTE | 2022-08-08 09:28 | PHA.MEDREC ---
Pharmacy Consult ? Medication Reconciliation Pharmacy has completed the medication reconciliation. Pt with list from [facility]
[2022-08-08 10:20] LABS: Reflex Lactate? 2 Y
[2022-08-08 11:32] LABS: ~Lactic Acid-LAB USE ONLY 1.3 mmol/L (0.5-2.0)
--- NOTE | 2022-08-08 11:54 | PC.NURSE ---
WILL RESPOND TO COMMANDS, IS NON VERBAL AT BASELINE, BEDSIDE ECHO DONE, REPOSITIONED TO RIGHT SIDE. WAITING ON ICU BED
[2022-08-08 12:03] LABS: Adenovirus PCR Not Detected (Not Detect.); Bordetella parapertussis PCR Not Detected (Not Detect.); Bordetella pertussis PCR Not Detected (Not Detect.); Chlamydia pneumoniae PCR Not Detected (Not Detect.); Coronavirus 229E PCR Not Detected (Not Detect.); Coronavirus HKU1 PCR Not Detected (Not Detect.); Coronavirus NL63 PCR Not Detected (Not Detect.); Coronavirus OC43 PCR Not Detected (Not Detect.); Human metapneumovirus PCR Not Detected (Not Detect.); Influenza A PCR Not Detected (Not Detect.); Influenza B PCR Not Detected (Not Detect.); Mycoplasma pneumoniae PCR Not Detected (Not Detect.); Parainfluenza 1 PCR Not Detected (Not Detect.); Parainfluenza 2 PCR Not Detected (Not Detect.); Parainfluenza 3 PCR Not Detected (Not Detect.); Parainfluenza 4 PCR Not Detected (Not Detect.); RSV PCR Not Detected (Not Detect.); Rhino/Enterovirus PCR Not Detected (Not Detect.); SARS-CoV-2 PCR Not Detected (Not Detect.)
[2022-08-08 13:30] LABS: Anion Gap 13 (12-20); Blood Urea Nitrogen 23 mg/dL (9-16); Calcium 8.9 mg/dL (8.4-10.2); Carbon Dioxide 27 mmol/L (22-29); Chloride 105 mmol/L (96-108); Estimated Glomerular Filt Rate > 60; Glucose Random 132 mg/dL (60-115); Magnesium 2.6 mg/dL (1.6-2.6); Potassium 5.5 mmol/L (3.3-5.1); Sodium 139 mmol/L (135-145)
[2022-08-08 14:33] LABS: Glucose, Whole Blood 97 mg/dL (60-115)
[2022-08-08] MEDS: Amiodarone/Dextrose 150 MG/100 ML PLAST..BAG 600 MG IV (16:18)
[2022-08-08] MEDS: Amiodarone HCL 900 MG in 0.9 % Sodium Chloride 500 ML 34.53 MG IVCONT (16:24)
[2022-08-08 18:05] LABS: Glucose, Whole Blood 106 mg/dL (60-115)
--- NOTE | 2022-08-08 19:25 | ECG_ITS ---
Test Reason : arrythmia Blood Pressure : / mmHG Vent. Rate : 070 BPM Atrial Rate : 070 BPM P-R Int : 148 ms QRS Dur : 114 ms QT Int : 454 ms P-R-T Axes : 041 077 057 degrees QTc Int : 490 ms Artifact in tracing Normal sinus rhythm Incomplete right bundle branch block Nonspecific T wave abnormality Prolonged QT Abnormal ECG When compared with ECG of 08-AUG-2022 05:20, Premature ventricular complexes are no longer Present QT has lengthened Referred By: Tiffanie Lock Electronically Signed By:PHILLIP DENNISON
[2022-08-08 20:37] LABS: VBG Base Excess 0.7 mmol/L; VBG HCO3 26 mmol/L (22-26); VBG pCO2 46 mmHg; VBG pH 7.36 (7.32-7.43); VBG pO2 36 mmHg
[2022-08-08 21:01] LABS: Anion Gap 15 (12-20); Blood Urea Nitrogen 25 mg/dL (9-16); Calcium 8.7 mg/dL (8.4-10.2); Carbon Dioxide 26 mmol/L (22-29); Chloride 105 mmol/L (96-108); Creatinine Clr Calc Pharmacy 54.2; Estimated Glomerular Filt Rate > 60; Glucose Random 107 mg/dL (60-115); Magnesium 2.5 mg/dL (1.6-2.6); Potassium 5.5 mmol/L (3.3-5.1); Sodium 140 mmol/L (135-145)
[2022-08-08 21:13] LABS: Troponin-I High Sensitivity 2699.1 ng/L (<3.5-35.0)
--- NOTE | 2022-08-08 21:45 | ECG_ITS ---
Test Reason : Chest pain Blood Pressure : / mmHG Vent. Rate : 070 BPM Atrial Rate : 070 BPM P-R Int : 156 ms QRS Dur : 112 ms QT Int : 446 ms P-R-T Axes : 034 -40 -44 degrees QTc Int : 481 ms Normal sinus rhythm Indeterminate axis Incomplete right bundle branch block Nonspecific ST abnormality Prolonged QT Abnormal ECG When compared with ECG of 08-AUG-2022 21:47, No significant changes seen Referred By: Tiffanie Lock Electronically Signed By:PHILLIP DENNISON
[2022-08-08] MEDS: Morphine Sulfate 2 MG/ML CARTRIDGE IVPUSH (22:27)
[2022-08-08 22:59] LABS: Venous Blood Gas Refer to POC result
[2022-08-09] VITALS (20 sets, daily range): BP systolic 110–147; BP diastolic 73–92; PULSE 64–81; RESP 14–33; TEMP 36.2–38.2; O2SAT 90–98; BMI 32.2
[2022-08-09 00:09] LABS: Glucose, Whole Blood 121 mg/dL (60-115)
[2022-08-09] MEDS: Morphine Sulfate 2 MG/ML CARTRIDGE IVPUSH (00:46)
[2022-08-09 04:41] LABS: VBG Base Excess -0.2 mmol/L; VBG HCO3 25 mmol/L (22-26); VBG pCO2 47 mmHg; VBG pH 7.34 (7.32-7.43); VBG pO2 44 mmHg
[2022-08-09 04:42] LABS: Venous Blood Gas Refer to POC result
[2022-08-09 04:54] LABS: MANUAL DIFF FLAG NO
[2022-08-09 04:58] LABS: Basophils Percent Auto 0.1 % (0-2); Eosinophils Percent Auto 0.1 % (0-4); Hematocrit 41.2 % (42.0-52.0); Hemoglobin 13.7 g/dl (14.0-18.0); Imm Gran Abs Auto 0.03 X10*3/uL (0.00-0.03); Imm Gran Pct Auto 0.4 % (0.0-0.4); Lymphocytes Percent Auto 12.8 % (20-40); Mean Corpuscular HGB Conc 33.3 g/dl (31.0-36.0); Mean Corpuscular Hemoglobin 30.7 pg (27.0-33.0); Mean Corpuscular Volume 92.4 fL (80.0-98.0); Mean Platelet Volume 10.7 fL (9.4-12.4); Monocytes Absolute Auto 0.8 X10*3/uL (0.1-1.2); Monocytes Percent Auto 10.8 % (2-11); Neutrophils Absolute Auto 5.8 x10*3/uL (2.0-8.3); Neutrophils Percent Auto 75.8 % (45-73); Platelet Count 129 X10*3/uL (160-400); Red Blood Count 4.46 X10*6/uL (4.60-5.80); Red Cell Distribution Width 14.3 % (11.0-16.0); White Blood Count 7.7 X10*3/uL (4.8-10.8)
[2022-08-09 05:16] LABS: Alanine Aminotransferase 881 U/L (0-40); Albumin Level 3.6 g/dL (3.5-5.0); Alkaline Phosphatase 62 U/L (39-117); Anion Gap 19 (12-20); Aspartate Amino Transferase 641 U/L (5-37); Bilirubin Total 0.7 mg/dL (0.0-1.0); Blood Urea Nitrogen 32 mg/dL (9-16); Calcium 9.1 mg/dL (8.4-10.2); Carbon Dioxide 24 mmol/L (22-29); Chloride 103 mmol/L (96-108); Cholesterol 154 mg/dL; Creatinine Clr Calc Pharmacy 53.7; Estimated Glomerular Filt Rate > 60; Glucose Random 113 mg/dL (60-115); HDL Cholesterol 33 mg/dL; LDL Cholesterol Calculated 95 mg/dl; Magnesium 2.6 mg/dL (1.6-2.6); Potassium 5.5 mmol/L (3.3-5.1); Sodium 140 mmol/L (135-145); Total Protein 5.8 g/dL (6.5-8.0); Triglycerides 134 mg/dL
[2022-08-09 06:04] LABS: Glucose, Whole Blood 115 mg/dL (60-115)
[2022-08-09] MEDS: Amiodarone HCL 900 MG in 0.9 % Sodium Chloride 500 ML 17.27 MG IVCONT (06:36)
[2022-08-09] MEDS: Enoxaparin Sodium 40 MG/0.4 ML SYRINGE SUBCUT (08:32)
[2022-08-09] MEDS: Famotidine/PF 20 MG/2 ML VIAL IVPUSH ×2 (08:32→20:28)
--- NOTE | 2022-08-09 11:19 | MHC.SL.SWA ---
Speech Pathologist Impression: Risk of Aspiration Due to: Neurological Condition History of Pneumonia Dysphasia Diet Status: Patient will require 1 to 1 feeding with close monitor: liquids by tsp only, food and liquid in small amounts, use pausing between bites to slow patients rate. Closely monitor for clinical signs of aspiration, discontinue if patient coughs, sounds congested after swallow. Liquid Consistency and Strategies for Safe Swallow: Liquid Intake Recommendation: [place] Thick Liquid Intake Strategies: Liquids by Teaspoon Only Solid Food Consistency: Dietary Recommendations: Grnd/Mech Altered (NDD2) Additional Modifications to Solid Foods: Patient will require 1-1 feeding, with [place] Thick Liquids by TSP only. Pace presentation to prevent patient taking in food too rapidly, and closely monitor for clinical signs of aspiration (discontinue meal if evident). Primary risk for aspiration is secondary to rapid intake of food while inhaling (patient evidenced frequent burping related to this issue). Oral Medication Intake: Crushed with Puree Please contact the pharmacy regarding appropriate crushable or liquid drug formulations that are available whenever modified delivery is recommended. Compensatory Strategies and Precautions to be Taken for Safe Swallow: Sitting Upright (90 deg) No Straw Liquids from [place] Small Bites and Sips Alternate Liquids/Solids Rate of Ingestion Change Supervision While Eating and Drinking for Safe Swallow: Total Assistance (1:1) Foods to Avoid: Mixed textures, tough consistencies, very sticky or congealed purees. Avoid soups with mixed textures. Swallowing Recommended Treatments: Compens. Strategy Educat. Recommendation for Speech: Inpatient Speech Therapy Comment: Patient presents with a moderate oral pharyngeal dysphagia, secondary to tardive dyskinesia, tongue pumping, rapid swallow, intake of air during swallow. Recommend START diet of Ground/Mechanical (NDD2) with [place] Thick Liquids, pills crushed in puree. At baseline, patient is on thin liquids, during today's assessment, patient evidenced shelbie aspiration (however should be re-assess for possible advancement at a later date). NDD2 with some additional foods is patient's baseline for food items. Patient will require 1-1 feed with strict aspiration precautions, and well paced presentation of small bites and sips to prevent too rapid intake. Liquids by tsp only. Advised MD of recommendations in person, RN RD by [place] [employer]. PROFESSOR OF INDUSTRIAL TECHNOLOGY will continue to follow for toleration of diet, possible advancement of liquids. Frequency/Duration: M-F while inpatient. Date Range for Service Req: Timeline to reassess: [place] Drill Operator Clinican/Clinical Fellow: No Supervisory Statement: I have reviewed and agree with the student/clinical fellow's documentation: N/A Speech Language Pathologist: Celina Lozano M.A., CCC-PROFESSOR OF INDUSTRIAL TECHNOLOGY
[2022-08-09 11:37] LABS: Glucose, Whole Blood 198 mg/dL (60-115)
--- NOTE | 2022-08-09 11:47 | PM.CCPN ---
Subjective Subjective Date of Service: 08/09/22 Interval History: 76-year-old care 1 patient came in by EMS responding to respiratory difficulty presented to the emergency room in ventricular tachycardia hemodynamically unstable requiring cardioversion which was successful and placed on amiodarone he since then has had a positive troponin is consistent with an an acute coronary syndrome clearly he had he had an infarct probably superimposed on an underlying congestive cardiomyopathy but has global ejection fraction now is 10-15% at best with severe diffuse hypokinesis no primary valve or pericardial disease even right heart is somewhat dilated and dysfunctional but remarkably he has a a pressure of about 130 systolic I was going to start him on an ARB empirically for his LV dysfunction but his potassium was 5.5 his renal function normally creatinine 0.7 it is currently 1.18 so there definitely was an acute kidney injury and he is nonoliguric but putting out about 25 cc/hour on the bedside echo there is some dilatation of his inferior vena cava so it is it is very difficult really to gauge his total body volume at this point but my suggestion would be at least nocturnally and he did tolerate I would place him on at least the mechanics of BiPAP providing him with positive intrathoracic pressure the usual which would be in a mechanically unload his left ventricle and preserve his respiratory status and when we start to see a little improvement in BUN and creatinine and may be urinary volume we might consider a vasodilators such as an ARB drug but that is going to require the potassium at least to come down below 5 to start with as a baseline along the way if there is any question about the respiratory difficulties I would utilize a loop diuretic because it all the hopefully have a little bit of a kaliuretic effect Critical Care Time (minutes): 45 Physical Exam Vital Signs: Vital Signs: Last Vital Signs Temp 100.8 F H 08/09/22 11:00 Pulse 74 08/09/22 11:00 Resp 22 H 08/09/22 11:00 BP 138/90 H 08/09/22 11:00 Pulse Ox 91 L 08/09/22 11:00 O2 Del Method Room Air 08/09/22 11:00 O2 Flow Rate 2 08/08/22 11:00 FiO2 21 08/09/22 04:00 Oxygen Flow Rate 6 08/08/22 05:41 BMI result Body Mass Index 32.2 He is awake with a Ramírez-Biggs respiratory pattern and a systolic pressure of 130 a sinus rhythm rate 74 oxygen saturation 92% respiratory rate is just a 18-19 Nonfocal neurologic Severe biventricular dysfunction with 10-15% ejection fraction Abdomen is soft no organomegaly No acrocyanosis Objective Data Labs 08/09/22 04:24 08/09/22 04:24 Labs: Laboratory Results - last 24 hr 08/08/22 08/08/22 08/08/22 08:14 12:23 14:30 WBC RBC Hgb Hct MCV MCH MCHC RDW Plt Count MPV Immature Gran % (Auto) Neut % (Auto) Lymph % (Auto) [place] % (Auto) Eos % (Auto) Baso % (Auto) Lymph # (Auto) [place] # (Auto) Eos # (Auto) Baso # (Auto) Abs Immat Gran (auto) Absolute Neuts (auto) Absolute Nucleated RBC Nucleated RBC % (auto) VBG pH VBG pCO2 VBG pO2 VBG HCO3 VBG O2 Saturation VBG Base Excess Sodium 139 Potassium 5.5 H D Chloride 105 Carbon Dioxide 27 Anion Gap 13 BUN 23 H Creatinine 1.04 Estim Creat Clear Calc 61.0 Estimated GFR > 60 POC Glucose 97 Random Glucose 132 H Calcium 8.9 D Phosphorus Magnesium 2.6 Total Bilirubin AST ALT Alkaline Phosphatase Troponin I High Sens Total Protein Albumin Triglycerides Cholesterol LDL Cholesterol, Calc HDL Cholesterol Respiratory Panel Dutta See Note Adenovirus (Rapid PCR) Not Detected B.pert (TEM-PCR) Not Detected B.parapertussis DNA PCR Not Detected C. pneumoniae DNA (PCR) Not Detected Coronavirus OC43 (PCR) Not Detected Coronavirus HKU1 (PCR) Not Detected Coronavirus 229E (PCR) Not Detected Coronavirus NL63 (PCR) Not Detected Human Metapneumovir PCR Not Detected Influenza A (RT-PCR) Not Detected Influenza B (RT-PCR) Not Detected M. pneumoniae (PCR) Not Detected Parainfluenza 1 (PCR) Not Detected Parainfluenza 2 (PCR) Not Detected Parainfluenza 3 (PCR) Not Detected Parainfluenza 4 (PCR) Not Detected RSV (PCR) Not Detected Entero/Rhino (PCR) Not Detected SARS-CoV-2 RNA (RT-PCR) Not Detected 08/08/22 08/08/22 08/08/22 17:59 20:23 20:23 WBC RBC Hgb Hct MCV MCH MCHC RDW Plt Count MPV Immature Gran % (Auto) Neut % (Auto) Lymph % (Auto) [place] % (Auto) Eos % (Auto) Baso % (Auto) Lymph # (Auto) [place] # (Auto) Eos # (Auto) Baso # (Auto) Abs Immat Gran (auto) Absolute Neuts (auto) Absolute Nucleated RBC Nucleated RBC % (auto) VBG pH VBG pCO2 VBG pO2 VBG HCO3 VBG O2 Saturation VBG Base Excess Sodium 140 Potassium 5.5 H Chloride 105 Carbon Dioxide 26 Anion Gap 15 BUN 25 H Creatinine 1.17 Estim Creat Clear Calc 54.2 Estimated GFR > 60 POC Glucose 106 Random Glucose 107 Calcium 8.7 Phosphorus Magnesium 2.5 Total Bilirubin AST ALT Alkaline Phosphatase Troponin I High Sens 2699.1 H* D Total Protein Albumin Triglycerides Cholesterol LDL Cholesterol, Calc HDL Cholesterol Respiratory Panel Dutta Adenovirus (Rapid PCR) B.pert (TEM-PCR) B.parapertussis DNA PCR C. pneumoniae DNA (PCR) Coronavirus OC43 (PCR) Coronavirus HKU1 (PCR) Coronavirus 229E (PCR) Coronavirus NL63 (PCR) Human Metapneumovir PCR Influenza A (RT-PCR) Influenza B (RT-PCR) M. pneumoniae (PCR) Parainfluenza 1 (PCR) Parainfluenza 2 (PCR) Parainfluenza 3 (PCR) Parainfluenza 4 (PCR) RSV (PCR) Entero/Rhino (PCR) SARS-CoV-2 RNA (RT-PCR) 08/08/22 08/09/22 08/09/22 20:27 00:05 04:24 WBC 7.7 RBC 4.46 L Hgb 13.7 L Hct 41.2 L MCV 92.4 MCH 30.7 MCHC 33.3 RDW 14.3 Plt Count 129 L MPV 10.7 Immature Gran % (Auto) 0.4 Neut % (Auto) 75.8 H Lymph % (Auto) 12.8 L School[place] % (Auto) 10.8 Eos % (Auto) 0.1 Baso % (Auto) 0.1 Lymph # (Auto) 1.0 L School[place] # (Auto) 0.8 Eos # (Auto) 0.0 Baso # (Auto) 0.0 Abs Immat Gran (auto) 0.03 Absolute Neuts (auto) 5.8 Absolute Nucleated RBC 0.000 Nucleated RBC % (auto) 0.0 VBG pH 7.36 VBG pCO2 46 VBG pO2 36 VBG HCO3 26 VBG O2 Saturation 53.0 VBG Base Excess 0.7 Sodium Potassium Chloride Carbon Dioxide Anion Gap BUN Creatinine Estim Creat Clear Calc Estimated GFR POC Glucose 121 H Random Glucose Calcium Phosphorus Magnesium Total Bilirubin AST ALT Alkaline Phosphatase Troponin I High Sens Total Protein Albumin Triglycerides Cholesterol LDL Cholesterol, Calc HDL Cholesterol Respiratory Panel Dutta Adenovirus (Rapid PCR) B.pert (TEM-PCR) B.parapertussis DNA PCR C. pneumoniae DNA (PCR) Coronavirus OC43 (PCR) Coronavirus HKU1 (PCR) Coronavirus 229E (PCR) Coronavirus NL63 (PCR) Human Metapneumovir PCR Influenza A (RT-PCR) Influenza B (RT-PCR) M. pneumoniae (PCR) Parainfluenza 1 (PCR) Parainfluenza 2 (PCR) Parainfluenza 3 (PCR) Parainfluenza 4 (PCR) RSV (PCR) Entero/Rhino (PCR) SARS-CoV-2 RNA (RT-PCR) 08/09/22 08/09/22 08/09/22 04:24 04:24 04:31 WBC RBC Hgb Hct MCV MCH MCHC RDW Plt Count MPV Immature Gran % (Auto) Neut % (Auto) Lymph % (Auto) [place] % (Auto) Eos % (Auto) Baso % (Auto) Lymph # (Auto) [place] # (Auto) Eos # (Auto) Baso # (Auto) Abs Immat Gran (auto) Absolute Neuts (auto) Absolute Nucleated RBC Nucleated RBC % (auto) VBG pH 7.34 VBG pCO2 47 VBG pO2 44 VBG HCO3 25 VBG O2 Saturation 65.0 VBG Base Excess -0.2 Sodium 140 Potassium 5.5 H Chloride 103 Carbon Dioxide 24 Anion Gap 19 BUN 32 H Creatinine 1.18 Estim Creat Clear Calc 53.7 Estimated GFR > 60 POC Glucose Random Glucose 113 Calcium 9.1 Phosphorus 5.0 H Magnesium 2.6 Total Bilirubin 0.7 AST 641 H ALT 881 H Alkaline Phosphatase 62 Troponin I High Sens 1328.2 H* D Total Protein 5.8 L Albumin 3.6 Triglycerides 134 Cholesterol 154 LDL Cholesterol, Calc 95 HDL Cholesterol 33 Respiratory Panel Dutta Adenovirus (Rapid PCR) B.pert (TEM-PCR) B.parapertussis DNA PCR C. pneumoniae DNA (PCR) Coronavirus OC43 (PCR) Coronavirus HKU1 (PCR) Coronavirus 229E (PCR) Coronavirus NL63 (PCR) Human Metapneumovir PCR Influenza A (RT-PCR) Influenza B (RT-PCR) M. pneumoniae (PCR) Parainfluenza 1 (PCR) Parainfluenza 2 (PCR) Parainfluenza 3 (PCR) Parainfluenza 4 (PCR) RSV (PCR) Entero/Rhino (PCR) SARS-CoV-2 RNA (RT-PCR) 08/09/22 08/09/22 06:00 11:32 WBC RBC Hgb Hct MCV MCH MCHC RDW Plt Count MPV Immature Gran % (Auto) Neut % (Auto) Lymph % (Auto) [place] % (Auto) Eos % (Auto) Baso % (Auto) Lymph # (Auto) [place] # (Auto) Eos # (Auto) Baso # (Auto) Abs Immat Gran (auto) Absolute Neuts (auto) Absolute Nucleated RBC Nucleated RBC % (auto) VBG pH VBG pCO2 VBG pO2 VBG HCO3 VBG O2 Saturation VBG Base Excess Sodium Potassium Chloride Carbon Dioxide Anion Gap BUN Creatinine Estim Creat Clear Calc Estimated GFR POC Glucose 115 198 H Random Glucose Calcium Phosphorus Magnesium Total Bilirubin AST ALT Alkaline Phosphatase Troponin I High Sens Total Protein Albumin Triglycerides Cholesterol LDL Cholesterol, Calc HDL Cholesterol Respiratory Panel Dutta Adenovirus (Rapid PCR) B.pert (TEM-PCR) B.parapertussis DNA PCR C. pneumoniae DNA (PCR) Coronavirus OC43 (PCR) Coronavirus HKU1 (PCR) Coronavirus 229E (PCR) Coronavirus NL63 (PCR) Human Metapneumovir PCR Influenza A (RT-PCR) Influenza B (RT-PCR) M. pneumoniae (PCR) Parainfluenza 1 (PCR) Parainfluenza 2 (PCR) Parainfluenza 3 (PCR) Parainfluenza 4 (PCR) RSV (PCR) Entero/Rhino (PCR) SARS-CoV-2 RNA (RT-PCR) Microbiology Microbiology Results: Microbiology 08/08/22 Unknown Urine Catheterized - Menard Catheter Urine Culture - Final No growth. 08/08/22 05:38 Blood - Venous Blood Culture - Preliminary No growth after 24 hours. 08/08/22 05:38 Blood - Venous Blood Culture - Preliminary No growth after 24 hours. Progress Note: A&P Assessment and plan (1) Ventricular tachycardia: Status: Acute (2) Hypotension: Status: Acute (3) Hypomagnesemia: Status: Acute (4) Acute coronary syndrome with high troponin: Status: Acute (5) Ischemic congestive cardiomyopathy: Status: Acute (6) Acute kidney injury: Status: Acute (7) Non-ST elevated myocardial infarction: Status: Acute (8) Aspiration pneumonia: Status: Acute (9) Pneumonia due to Acinetobacter species: Status: Acute (10) Respiratory failure with hypoxia and hypercapnia: Status: Acute (11) Prostate cancer: Status: Acute (12) Prostate cancer: Status: Acute (13) Altered mental status: Status: Acute (14) CHF (congestive heart failure): Status: Acute (15) Hypertension: Status: Acute (16) Tardive dyskinesia: Status: Acute (17) Chronic obstructive pulmonary disease with (acute) exacerbation: Status: Acute Plan So with transfer to intermediate care telemetry on p.o. amiodarone no vasodilators therapy otherwise but would recommend using at least nocturnally BiPAP device for mechanical unloading of the ventricle and adjust allow him to eat and drink per swallow study with a ground texture and nectar thick and follow his renal function as it improves if potassium comes down and blood pressure permitting empiric choice of losartan might be may because of the events and the resulting myopathy but as I described to the guardian from his [facility] home my I feel that the near term prognosis is poor given the degree of LV dysfunction Quality Stroke Does the patient have a stroke diagnosis?: No VTE Prior VTE?: No VTE Risk Level:: Medical - moderate - high VTE Device Contraindication: N/A - Device Ordered VTE Drug Contraindication: N/A - Med Ordered
--- NOTE | 2022-08-09 14:05 | MHC.CM.PN ---
Pt presently in ICU after defibrilation and Amiodorone gtt for SVT. Attempted to meet w/pt using Italian and Cameroonian: pt difficult to understand and is not a reliable communicator at baseline. Pt is a LTC resident of [facility] and is a bedhold. He requires physical assist for all care needs and is minimally mobile at baseline. At this time he is a full code: discussed code status w/pt's guardian Bethanie Blackmon given pt's poor cardiac outcome: She will pursue legal change once pt is back at facility. BLS transport necessary. CM to follow for d/c planning
[2022-08-09] MEDS: Amiodarone HCL 200 MG TABLET 100 MG PO ×2 (14:26→20:28)
[2022-08-09 16:12] LABS: Glucose, Whole Blood 142 mg/dL (60-115)
[2022-08-09 19:40] LABS: Glucose, Whole Blood 173 mg/dL (60-115)
[2022-08-10] VITALS (9 sets, daily range): BP systolic 103–147; BP diastolic 63–90; PULSE 60–83; RESP 20–24; TEMP 36.1–37.1; O2SAT 91–96; BMI 31.3
[2022-08-10 07:17] LABS: Glucose, Whole Blood 126 mg/dL (60-115)
[2022-08-10] MEDS: Famotidine/PF 20 MG/2 ML VIAL IVPUSH ×2 (09:05→20:22)
[2022-08-10] MEDS: Amiodarone HCL 200 MG TABLET 100 MG PO (09:05)
[2022-08-10] MEDS: Divalproex Sodium Sprinkles 125 MG CAP.DR.SPR 1000 MG PO (09:05)
[2022-08-10] MEDS: Aspirin Enteric Coated 81 MG TABLET.DR PO (09:05)
[2022-08-10] MEDS: Enoxaparin Sodium 40 MG/0.4 ML SYRINGE SUBCUT (09:05)
--- NOTE | 2022-08-10 09:42 | HO.PM.IMPN ---
Subjective Subjective Date of Service: 08/10/22 Interval History: no copmlaints Physical Exam Vital Signs: Vital Signs: Last Vital Signs Temp 96.9 F 08/10/22 07:12 Pulse 81 08/10/22 07:12 Resp 24 H 08/10/22 07:12 BP 136/84 08/10/22 07:12 Pulse Ox 91 L 08/10/22 07:12 O2 Del Method Room Air 08/10/22 07:12 O2 Flow Rate 16 08/10/22 00:00 FiO2 21 08/10/22 00:00 Oxygen Flow Rate 6 08/08/22 05:41 BMI result Body Mass Index 31.3 alert, no acute distress, lungs clear Objective Data Active Medications Amiodarone HCl (Amiodarone Hcl 200 Mg Tablet) 100 mg PO TID [facility] Last Admin: 08/10/22 09:05 Dose: 100 mg Documented By: SIXTO Aspirin (Aspirin Enteric Coated 81 Mg Tablet.) 81 mg PO DAILY [facility] Last Admin: 08/10/22 09:05 Dose: 81 mg Documented By: SIXTO Divalproex Sodium (Divalproex Sodium Sprinkles 125 Mg Cap.Spr) 1,000 mg PO DAILY [facility] Last Admin: 08/10/22 09:05 Dose: 1,000 mg Documented By: SIXTO Enoxaparin Sodium (Enoxaparin Sodium 40 Mg/0.4 Ml Syringe) 40 mg SUBCUT Q24H [facility] Last Admin: 08/10/22 09:05 Dose: 40 mg Documented By: ISXTO Famotidine (Famotidine/Pf 20 Mg/2 Ml Vial) 20 mg IVPUSH BID [facility] Last Admin: 08/10/22 09:05 Dose: 20 mg Documented By: SIXTO Pharmacy Consult (Consult Rx Perform Med Rec) 1 each MISCELLANE ONCE PRN PRN Reason: Consult order Labs 08/09/22 04:24 08/09/22 04:24 Labs: Laboratory Results - last 24 hr 08/09/22 08/09/22 08/09/22 11:32 16:05 19:32 POC Glucose 198 H 142 H 173 H 08/10/22 07:13 POC Glucose 126 H Microbiology Microbiology Results: Microbiology 08/08/22 05:38 Blood Culture - Preliminary Blood - Venous No growth after 48 hours. 08/08/22 05:38 Blood Culture - Preliminary Blood - Venous No growth after 48 hours. 08/08/22 Unknown Urine Culture - Final Urine Catheterized - Menard Catheter No growth. Assessment and Plan (1) Ischemic congestive cardiomyopathy: Status: Acute Plan 76M PMH COPD, CHF, schizophrenia, epilepsy, prostate ca, htn, tardive dyskenisia, presented from [facility] with repsiratory distressed, sustained Vtach, cardiogenic shock, was cardioverted successfully admitted to icu, did not need intubation. echo showed severe cardiomyoipathy ef<10%, now stable and downgraded to med/tele. cardiogenic shock due to sustained vtach in patient with presumed ischemic cardiomyopathy still having occasional 4-5 beat vtach, continue amio, cardio eval geoffrey resolved epilepsy, schizophrenia depakote copd stable dvt prophylaxis - lovenox full code reason for continued hospitalization: still having epiusodes of vtach Time Spent With Patient Time: Total time managing care of this patient today ____ minutes. Quality Stroke Does the patient have a stroke diagnosis?: No VTE Prior VTE?: No VTE Risk Level:: Medical - moderate - high VTE Device Contraindication: N/A - Device Ordered VTE Drug Contraindication: N/A - Med Ordered
--- NOTE | 2022-08-10 10:45 | PM.CNCAR ---
History of Present Illness History of Present Illness Date of Service: 08/10/22 Chief complaint: Unstable ventricular tachycardia/ non ST elevation Narrative: This is a cardiology consultation regarding ventricular tachycardia, cardiomyopathy. Using slab lifting supervisor to speak to patient but not much of history. He is able to shake his head 1 way or another but do not believe the truly reliable. Per documentation, it seems that patient presented to the ER with respiratory difficulty. In that context, he was seen to be in ventricular tachycardia and hemodynamically unstable. That led to cardioversion. Then placed on amiodarone. He also had elevated troponins consistent with ACS. It seems that there was a bedside echo performed by grain roaster and that showed diminished LVEF 10-15%. Subsequently, stabilized in the ICU and then now he is back in the floor. As mentioned above, try to communicate with patient using occupational therapist assistants, but no information obtainable. Review of Systems Review of Systems: Patient is not in a position to give any review of systems. [facility] Past Medical History Medical History Cervicalgia CHF (congestive heart failure) COPD (chronic obstructive pulmonary disease) Dementia Diabetes type 2, controlled Dysphagia Epilepsy GERD (gastroesophageal reflux disease) Hypertension Muscle weakness (generalized) Pneumonia due to Acinetobacter species Respiratory failure with hypoxia and hypercapnia Schizo affective schizophrenia Spinal stenosis Family History Family History Mother Cancer Social History Social History Household Members: None Housing: Residential Housing Other:: non verbal Are you a primary care team assistant to a significant other at home: No Unable to assess alcohol history related to: Unknown Alcohol intake: unknown Patient Tobacco Use Status: Never used Tobacco Second Hand Smoke Exposure: No Use of substances other than those prescribed or required for medical reasons: Unknown Currently Displaying Signs/Symptoms of Drug Intoxication Withdrawal: No Advance Directives: No Advance Directives Information Provided: No Recently lost weight without trying: Unsure How much weight loss: Unsure service: No Current occupational status: disabled Meds Allergies Allergy/AdvReac Type Severity Reaction Status Date / Time tuberculin, purified protein Allergy Unknown UNKNOWN Verified 12/21/21 13:21 deriva [Tuberculin,Purif.Prot.Deriv.] Active Medications: Current Medications Amiodarone HCl (Amiodarone Hcl 200 Mg Tablet) 100 mg PO TID [facility] Last Admin: 08/10/22 09:05 Dose: 100 mg Aspirin (Aspirin Enteric Coated 81 Mg Tablet.) 81 mg PO DAILY [facility] Last Admin: 08/10/22 09:05 Dose: 81 mg Divalproex Sodium (Divalproex Sodium Sprinkles 125 Mg Cap.DrCapo) 1,000 mg PO DAILY [facility] Last Admin: 08/10/22 09:05 Dose: 1,000 mg Enoxaparin Sodium (Enoxaparin Sodium 40 Mg/0.4 Ml Syringe) 40 mg SUBCUT Q24H [facility] Last Admin: 08/10/22 09:05 Dose: 40 mg Famotidine (Famotidine/Pf 20 Mg/2 Ml Vial) 20 mg IVPUSH BID [facility] Last Admin: 08/10/22 09:05 Dose: 20 mg Pharmacy Consult (Consult Rx Perform Med Rec) 1 each MISCELLANE ONCE PRN PRN Reason: Consult order Home Medications Medication Instructions Recorded Confirmed Last Taken Type acetaminophen 325 mg capsule 650 mg PO Q4H PRN Pain 01/19/20 08/08/22 Unknown History amlodipine 5 mg tablet 5 mg PO DAILY 01/19/20 08/08/22 Unknown History bicalutamide 50 mg tablet 50 mg PO DAILY 01/19/20 08/08/22 Unknown History furosemide 20 mg tablet (Lasix) 20 mg PO DAILY 01/19/20 08/08/22 Unknown History ibuprofen 200 mg tablet 600 mg PO Q6H PRN Pain 01/19/20 08/08/22 Unknown History levalbuterol tartrate 45 2 puff inhalation Q4H PRN cough 01/19/20 08/08/22 Unknown History mcg/actuation aerosol inhaler lorazepam 2 mg/mL injection 1 mg IM Q5M PRN Seizure Activity 01/19/20 08/08/22 Unknown History solution (Ativan) omeprazole 20 mg capsule,delayed 20 mg PO DAILY@0630 01/19/20 08/08/22 Unknown History release sennosides 8.6 mg tablet (senna) 8.6 mg PO DAILY PRN Constipation 01/19/20 08/08/22 Unknown History guaifenesin 100 mg/5 mL oral liquid 200 mg PO Q6H PRN Cough 12/21/21 08/08/22 Unknown History sodium phosphates 19 gram-7 118 ml UT DAILY PRN Constipation 12/21/21 08/08/22 Unknown History gram/118 mL enema (Fleet Enema) aluminum-mag hydroxide-simethicone 20 ml PO Q4H PRN Dyspepsia 03/07/22 08/08/22 Unknown History 200 mg-200 mg-20 mg/5 mL oral susp dextran 70-hypromellose (PF) 0.1 1 drp ophthalmic (eye) Q8H PRN Dry 03/07/22 08/08/22 Unknown History %-0.3 % eye drops in a dropperette Eyes (Artificial Tears (PF)) aspirin 81 mg tablet,delayed 81 mg PO DAILY 08/08/22 08/08/22 Unknown History release bisacodyl 10 mg rectal suppository 10 mg UT DAILY PRN Constipation 08/08/22 08/08/22 Unknown History divalproex 125 mg capsule,delayed 1,000 mg PO DAILY 08/08/22 08/08/22 Unknown History release sprinkle doxycycline hyclate 50 mg capsule 50 mg PO DAILY 08/08/22 08/08/22 Unknown History ergocalciferol (vitamin D2) 1,250 1,250 mcg PO DAILY 08/08/22 08/08/22 Unknown History mcg (50,000 unit) capsule lactulose 10 gram/15 mL oral 30 ml PO TID 08/08/22 08/08/22 Unknown History solution levalbuterol tartrate 45 2 puff inhalation BID 08/08/22 08/08/22 Unknown History mcg/actuation aerosol inhaler sennosides 8.6 mg tablet (senna) 8.6 mg PO BID 08/08/22 08/08/22 Unknown History Physical Exam Vital Signs: Vital Signs: Last Vital Signs Temp 96.9 F 08/10/22 07:12 Pulse 81 08/10/22 07:12 Resp 24 H 08/10/22 07:12 BP 136/84 08/10/22 07:12 Pulse Ox 91 L 08/10/22 07:12 O2 Del Method Room Air 08/10/22 07:12 O2 Flow Rate 16 08/10/22 00:00 FiO2 21 08/10/22 00:00 Oxygen Flow Rate 6 08/08/22 05:41 BMI result Body Mass Index 31.3 Const: General: comfortable and no acute distress Orientation/consciousness: No patient oriented x3 HEENT: Other: Unremarkable Head: Yes normal to inspection Neck: Neck: Yes normal visual inspection Chest: Chest palpation & inspection: normal inspection of the chest Resp: Auscultation: clear to auscultation bilaterally Cardio: Palpation: normal PMI Heart sounds: S1 normal heart sound present, S2 normal heart sound present, no gallops, no murmurs and no rubs GI: Palpation (GI): Soft to palpation Back/Spine/Pelvis: Other: unremarkable Skin: General skin exam: no rashes or lesions noted Neuro: General: No patient oriented x3 Extrem: General: Yes normal to inspection Psych: Mental Status: mental status grossly abnormal Objective Labs and Meds 08/09/22 04:24 08/09/22 04:24 Lab results: Laboratory Results - last 24 hr 08/09/22 08/09/22 08/09/22 11:32 16:05 19:32 POC Glucose 198 H 142 H 173 H 08/10/22 07:13 POC Glucose 126 H ECG Interpretation: EKG with sinus rhythm at 70/Min; incomplete right bundle-branch block pattern; nonspecific ST-T changes; prolonged UT at 481 milliseconds. Initial EKG from admission showed broad complex tachycardia likely ventricular tachycardia. Assessment and Plan (1) Ischemic congestive cardiomyopathy: Status: Acute (2) Acute coronary syndrome with high troponin: Status: Acute (3) Ventricular tachycardia: Status: Acute Plan Initial EKG showed ventricular tachycardia. Now showing sinus rhythm by telemetry still has PVCs. Troponins peaked at 2700. Started coming down. Echocardiogram with severely increased left ventricular cavity size and severely impaired function with an ejection fraction less than 10%. Overall, NSTEMI, severe cardiomyopathy, ventricular arrhythmias, severe mental impairment. Overall, he is not suitable for any invasive cardiac studies mainly due to psychiatric type issues. As long as blood pressure can tolerate, we can at least adjust medications and start him on some beta blockers. Amiodarone can be switched to 400 mg b.i.d.. If blood pressure permits, then start Entresto. Lab abnormalities including abnormal LFTs will need to be followed up. Discussed with Dr. Carias. Goals of care need to be decided. Time Spent With Patient Time: Total time managing care of this patient today ____ minutes. Procedures Date of Service Date of Service: 08/10/22
[2022-08-10 11:09] LABS: Glucose, Whole Blood 138 mg/dL (60-115)
--- NOTE | 2022-08-10 14:18 | MHC.SL.SWA ---
Speech Pathologist Impression: Risk of aspiration, oropharyngeal dysphagia Risk of Aspiration Due to: Neurological Condition History of Pneumonia Dysphasia Diet Status: No change Liquid Consistency and Strategies for Safe Swallow: Liquid Intake Recommendation: [place] Thick Liquid Intake Strategies: Liquids by Teaspoon Only Solid Food Consistency: Dietary Recommendations: Grnd/Mech Altered (NDD2) Additional Modifications to Solid Foods: Patient will require 1-1 feeding, with [place] Thick Liquids by TSP only. Pace presentation to prevent patient taking in food too rapidly, and closely monitor for clinical signs of aspiration (discontinue meal if evident). Primary risk for aspiration is secondary to rapid intake of food while inhaling (patient evidenced frequent burping related to this issue). Oral Medication Intake: Crushed with Puree Please contact the pharmacy regarding appropriate crushable or liquid drug formulations that are available whenever modified delivery is recommended. Compensatory Strategies and Precautions to be Taken for Safe Swallow: Sitting Upright (90 deg) No Straw Liquids from Spoon Small Bites and Sips Alternate Liquids/Solids Rate of Ingestion Change Supervision While Eating and Drinking for Safe Swallow: Total Assistance (1:1) Foods to Avoid: Mixed textures, tough consistencies, very sticky or congealed purees. Avoid soups with mixed textures. Swallowing Recommended Treatments: Compens. Strategy Educat. Recommendation for Speech: Inpatient Speech Therapy Frequency/Duration: M-F while inpatient. Product Manufacturing Professional Clinican/Clinical Fellow: No Supervisory Statement: I have reviewed and agree with the student/clinical fellow's documentation: N/A Speech Language Pathologist: Cristy Damico M.A., CCC-HEATING PLANT SUPERINTENDENT
[2022-08-10] MEDS: Acetaminophen 325 MG TABLET 650 MG PO (14:30)
[2022-08-10 16:06] LABS: Glucose, Whole Blood 103 mg/dL (60-115)
[2022-08-10 19:36] LABS: Glucose, Whole Blood 159 mg/dL (60-115)
[2022-08-10 20:29] LABS: Glucose, Whole Blood 121 mg/dL (60-115)
[2022-08-10 21:13] LABS: ABG Base Excess 5.9 mmol/L; ABG HCO3 30 mmol/L (22-26); ABG pCO2 45 mmHg (32-45); ABG pH 7.43 (7.35-7.45); ABG pO2 82 mmHg (83-108)
[2022-08-10] MEDS: Amiodarone HCL 200 MG TABLET 400 MG PO (23:52)
[2022-08-10] MEDS: carvediloL 3.125 MG TABLET PO (23:52)
[2022-08-11] VITALS (11 sets, daily range): BP systolic 90–121; BP diastolic 58–79; PULSE 52–80; RESP 17–40; TEMP 36.1–37.1; O2SAT 91–98; BMI 30.8
[2022-08-11 00:40] LABS: ABG Refer to POC result
--- NOTE | 2022-08-11 00:49 | PC.NURSE ---
2039 pt was seen in the room, lethargic, arousable by painful stimuli. Diaphoretic. Rechecked POC was 121. all vitals signs were rechecked and with in normal. notified. STAT ABG done. Results are with in his baseline. PO meds at HS was held until pt was awake per MD advise. RT placed pt on BIPAP mask. midnight pt woke up. Very alert. Refused his mask. So BIPAP was off. PO meds given late.
[2022-08-11 07:25] LABS: Anion Gap 11 (12-20); Blood Urea Nitrogen 28 mg/dL (9-16); Calcium 8.7 mg/dL (8.4-10.2); Carbon Dioxide 28 mmol/L (22-29); Chloride 108 mmol/L (96-108); Creatinine Clr Calc Pharmacy 89.5; Estimated Glomerular Filt Rate > 60; Glucose Fasting 109 mg/dL (60-99); Potassium 5.2 mmol/L (3.3-5.1); Sodium 142 mmol/L (135-145)
[2022-08-11 07:34] LABS: Hematocrit 39.9 % (42.0-52.0); Mean Corpuscular HGB Conc 32.6 g/dl (31.0-36.0); Mean Corpuscular Hemoglobin 31.2 pg (27.0-33.0); Mean Corpuscular Volume 95.7 fL (80.0-98.0); Mean Platelet Volume 10.7 fL (9.4-12.4); Platelet Count 125 X10*3/uL (160-400); Red Blood Count 4.17 X10*6/uL (4.60-5.80); Red Cell Distribution Width 14.6 % (11.0-16.0); White Blood Count 7.1 X10*3/uL (4.8-10.8)
[2022-08-11 07:58] LABS: Glucose, Whole Blood 106 mg/dL (60-115)
[2022-08-11] MEDS: Aspirin Enteric Coated 81 MG TABLET.DR PO (08:32)
[2022-08-11] MEDS: Divalproex Sodium Sprinkles 125 MG CAP.DR.SPR 1000 MG PO (08:32)
[2022-08-11] MEDS: Amiodarone HCL 200 MG TABLET 400 MG PO ×2 (08:32→20:25)
[2022-08-11] MEDS: Enoxaparin Sodium 40 MG/0.4 ML SYRINGE SUBCUT (08:32)
[2022-08-11] MEDS: Famotidine/PF 20 MG/2 ML VIAL IVPUSH ×2 (08:32→20:25)
[2022-08-11] MEDS: carvediloL 3.125 MG TABLET PO ×2 (08:32→20:25)
--- NOTE | 2022-08-11 09:03 | P.PNIM_ITS ---
Subjective Subjective Date of Service: 08/11/22 Interval History: no complaints Physical Exam Vital Signs: Vital Signs: Last Vital Signs Temp 97.5 F 08/11/22 07:10 Pulse 66 08/11/22 07:10 Resp 17 08/11/22 07:10 BP 113/72 08/11/22 07:10 Pulse Ox 95 08/11/22 07:10 O2 Del Method Room Air 08/11/22 07:10 O2 Flow Rate 16 08/10/22 00:00 FiO2 21 08/10/22 00:00 Oxygen Flow Rate 6 08/08/22 05:41 BMI result Body Mass Index 30.8 Const: General: comfortable and no acute distress O rientation/consciousness: No patient oriented x3 HEENT: Other: Unremarkable Head: Yes normal to inspection Neck: Neck: Yes normal visual inspection Chest: Chest palpation & inspection: normal inspection of the chest Resp: Auscultation: clear to auscultation bilaterally Cardio: Palpation: normal PMI Heart sounds: S1 normal heart sound present, S2 normal heart sound present, no gallops, no murmurs and no rubs GI: Palpation (GI): Soft to palpation Back/Spine/Pelvis: Other: unremarkable Skin: General skin exam: no rashes or lesions noted Neuro: General: No patient oriented x3 Extrem: General: Yes normal to inspection Psych: Mental Status: mental status grossly abnormal Objective Data Active Medications Acetaminophen (Acetaminophen 325 Mg Tablet) 650 mg PO Q6H PRN PRN Reason: moderate pain Last Admin: 08/10/22 14:30 Dose: 650 mg Documented By: SIXTO Amiodarone HCl (Amiodarone Hcl 200 Mg Tablet) 400 mg PO BID [facility] Last Admin: 08/11/22 08:32 Dose: 400 mg Documented By: MARIZA Aspirin (Aspirin Enteric Coated 81 Mg Tablet.) 81 mg PO DAILY [facility] Last Admin: 08/11/22 08:32 Dose: 81 mg Documented By: MARIZA Carvedilol (Carvedilol 3.125 Mg Tablet) 3.125 mg PO BID [facility]; Protocol Last Admin: 08/11/22 08:32 Dose: 3.125 mg Documented By: MARIZA Divalproex Sodium (Divalproex Sodium Sprinkles 125 Mg ) 1,000 mg PO DAILY [facility] Last Admin: 08/11/22 08:32 Dose: 1,000 mg Documented By: MARIZA Enoxaparin Sodium (Enoxaparin Sodium 40 Mg/0.4 Ml Syringe) 40 mg SUBCUT Q24H [facility] Last Admin: 08/11/22 08:32 Dose: 40 mg Documented By: MARIZA Famotidine (Famotidine/Pf 20 Mg/2 Ml Vial) 20 mg IVPUSH BID [facility] Last Admin: 08/11/22 08:32 Dose: 20 mg Documented By: MARIZA Pharmacy Consult (Consult Rx Perform Med Rec) 1 each MISCELLANE ONCE PRN PRN Reason: Consult order Labs 08/11/22 06:48 08/11/22 06:48 Labs: Laboratory Results - last 24 hr 08/10/22 08/10/22 08/10/22 11:00 16:00 19:30 MCV MCH MCHC RDW Plt Count MPV Absolute Nucleated RBC Nucleated RBC % (auto) O2 Saturation ABG pH at Pt Temp ABG pCO2 at Pt Temp ABG pO2 at Pt Temp ABG HCO3 ABG Base Excess (Actual) Anion Gap Estim Creat Clear Calc Estimated GFR POC Glucose 138 H 103 159 H Fasting Glucose Calcium 08/10/22 08/10/22 08/11/22 20:26 21:04 06:48 MCV 95.7 MCH 31.2 MCHC 32.6 RDW 14.6 Plt Count 125 L MPV 10.7 Absolute Nucleated RBC 0.000 Nucleated RBC % (auto) 0.0 O2 Saturation 96.0 ABG pH at Pt Temp 7.43 ABG pCO2 at Pt Temp 45 ABG pO2 at Pt Temp 82 L ABG HCO3 30 H ABG Base Excess (Actual) 5.9 Anion Gap Estim Creat Clear Calc Estimated GFR POC Glucose 121 H Fasting Glucose Calcium 08/11/22 08/11/22 06:48 07:10 MCV MCH MCHC RDW Plt Count MPV Absolute Nucleated RBC Nucleated RBC % (auto) O2 Saturation ABG pH at Pt Temp ABG pCO2 at Pt Temp ABG pO2 at Pt Temp ABG HCO3 ABG Base Excess (Actual) Anion Gap 11 L Estim Creat Clear Calc 89.5 Estimated GFR > 60 POC Glucose 106 Fasting Glucose 109 H Calcium 8.7 Microbiology Microbiology Results: Microbiology 08/08/22 05:38 Blood Culture - Preliminary Blood - Venous No growth after 48 hours. 08/08/22 05:38 Blood Culture - Preliminary Blood - Venous No growth after 48 hours. Assessment and Plan (1) Ischemic congestive cardiomyopathy: Status: Acute Plan 76M PMH COPD, CHF, schizophrenia, epilepsy, prostate ca, htn, tardive dyskenisia, presented from [facility] with repsiratory distressed, sustained Vtach, cardiogenic shock, was cardioverted successfully admitted to icu, did not need intubation. echo showed severe cardiomyoipathy ef<10%, now stable and downgraded to med/tele. cardiogenic shock due to sustained vtach in patient with presumed ischemic cardiomyopathy no vtach last 24hrs, continue amio 400mg bid, coreg 3.125mg bid cardio appreciated, plan for conservative care geoffrey resolved epilepsy, schizophrenia depakote copd stable dvt prophylaxis - lovenox full code reason for continued hospitalization: continue to monitor for vtach Time Spent With Patient Time: Total time managing care of this patient today ____ minutes. Quality Stroke Does the patient have a stroke diagnosis?: No VTE Prior VTE?: No VTE Risk Level:: Medical - moderate - high VTE Device Contraindication: N/A - Device Ordered VTE Drug Contraindication: N/A - Med Ordered
[2022-08-11 12:29] LABS: Glucose, Whole Blood 107 mg/dL (60-115)
[2022-08-11 16:04] LABS: Glucose, Whole Blood 135 mg/dL (60-115)
[2022-08-11 19:46] LABS: Glucose, Whole Blood 139 mg/dL (60-115)
[2022-08-11] MEDS: Acetaminophen 325 MG TABLET 650 MG PO (20:28)
[2022-08-11] MEDS: Albuterol/Iprat 2.5/0.5MG 3 ML AMPUL.NEB INHALE (20:32)
[2022-08-11 20:36] LABS: ABG Base Excess 5.6 mmol/L; ABG HCO3 31 mmol/L (22-26); ABG pCO2 52 mmHg (32-45); ABG pH 7.38 (7.35-7.45); ABG pO2 73 mmHg (83-108)
[2022-08-11 21:18] LABS: Anion Gap 13 (12-20); Blood Urea Nitrogen 30 mg/dL (9-16); Calcium 8.8 mg/dL (8.4-10.2); Carbon Dioxide 29 mmol/L (22-29); Chloride 106 mmol/L (96-108); Creatinine Clr Calc Pharmacy 80.3; Estimated Glomerular Filt Rate > 60; Glucose Random 138 mg/dL (60-115); Magnesium 2.2 mg/dL (1.6-2.6); Potassium 4.8 mmol/L (3.3-5.1); Sodium 143 mmol/L (135-145)
[2022-08-11 21:23] LABS: B Type Natriuretic Peptide 1809 pg/mL (<100)
[2022-08-11 22:40] LABS: ABG Refer to POC result
[2022-08-12] VITALS (11 sets, daily range): BP systolic 86–129; BP diastolic 54–77; PULSE 50–81; RESP 18–21; TEMP 36.1–36.5; O2SAT 93–98; BMI 32.3
--- NOTE | 2022-08-12 | ECG_ITS ---
Test Reason : CP Blood Pressure : / mmHG Vent. Rate : 056 BPM Atrial Rate : 056 BPM P-R Int : 146 ms QRS Dur : 108 ms QT Int : 528 ms P-R-T Axes : 022 -28 -89 degrees QTc Int : [address] & T wave abnormality, consider inferior ischemia ST & T wave abnormality, consider anterolateral ischemia Prolonged QT Abnormal ECG When compared with ECG of 08-AUG-2022 21:48, Incomplete right bundle branch block is no longer Present T wave inversion more evident in Inferior leads T wave inversion now evident in Anterolateral leads Referred By: Calos Carias Electronically Signed By:Robe Pacheco
--- NOTE | 2022-08-12 04:34 | PM.EVENT ---
Event Note Date of Service: 08/12/22 Event Note: Patient had 10 beats of V-tach, with prolonged QT of 509, normal potassium and magnesium levels. This time will give 1 mg of IV magnesium, will hold morning dose of amiodarone, and will consult Cardiology patient also found to be hypotensive after waking up from wearing BiPAP all night, asymptomatic. Will order 1 dose of amiodarone Time Spent With Patient Time: Total time managing care of this patient today ____ minutes.
[2022-08-12] MEDS: Midodrine HCl 5 MG TABLET PO (05:05)
[2022-08-12] MEDS: Magnesium Sulfate/D5W 1 GM/100 ML PIGGYBACK IV (05:06)
[2022-08-12 06:08] LABS: Troponin-I High Sensitivity 213.5 ng/L (<3.5-35.0)
--- NOTE | 2022-08-12 06:32 | PC.NURSE ---
Assumed care at 19:00. Patient Alert, unable to fully assess orientation status, mostly nonverbal except for a very few hard to understand poorly pronounced words. Responds to yes and no questions in both Ukrainian and Urdu, was communicated with mostly in Urdu. Patient follows commands and seems to reply appropriatly to questions. Patient did pantomime interest in paper and pen to write with, and then proceeded to draw nonsensical patterns for hours on paper. Patient started this shift with RR of 40, accessory muscle use, endorsed SOB, scattered wheezes in bilateral upper lobes, diminished lower lobes. MD notified, breathing treatment per MD, ABG checked and hypercarbic with pCO2 52. Patient was treated with Bipap overnight 14/5 and 21%, with minute volumes about 11.9 and tidal volumes about 465, and well tolerated from 00:00 to 02:30. Patient had also endorsed headache, which resolved with tylenol. Patient endorsed being comfortable the rest of the night, and denied pain or chest pain or dizziness. He did have low blood pressures, manual pressures: 88/54 and 86/60 reported to MD at 03:30 after Bipap off, asymptomatic. Patient continued to have low blood pressure into the morning, and new order for PO midodrine administered, as well as IV magnesium 1 gm, adminitered. Patient with critical troponins 213.5, an improvement from prior. Patient noted to have developed T-wave inversion abour 08/10, and this has deepened since then in lead II. EKG per MD, and reviewed by MD. Low urine output with thick cloudy stong smelling urine.
[2022-08-12 07:49] LABS: Glucose, Whole Blood 96 mg/dL (60-115)
--- NOTE | 2022-08-12 09:12 | P.PNIM_ITS ---
Subjective Subjective Date of Service: 08/12/22 Interval History: hypotensive overnight, still with vtach episodes Physical Exam Vital Signs: Vital Signs: Last Vital Signs Temp 96.9 F 08/12/22 07:40 Pulse 62 08/12/22 07:40 Resp 21 H 08/12/22 07:40 BP 108/70 08/12/22 07:40 Pulse Ox 95 08/12/22 07:40 O2 Del Method Room Air 08/12/22 07:40 O2 Flow Rate 16 08/10/22 00:00 FiO2 21 08/10/22 00:00 Oxygen Flow Rate 6 08/08/22 05:41 BMI result Body Mass Index 32.3 Const: General: comfortable and no acute distress Orientation/consciousness: No patient oriented x3 HEENT: Other: Unremarkable Head: Yes normal to inspection Neck: Neck: Yes normal visual inspection Chest: Chest palpation & inspection: normal inspection of the chest Resp: Auscultation: clear to auscultation bilaterally Cardio: Palpation: normal PMI Heart sounds: S1 normal heart sound present, S2 normal heart sound present, no gallops, no murmurs and no rubs GI: Palpation (GI): Soft to palpation Back/Spine/Pelvis: Other: unremarkable Skin: General skin exam: no rashes or lesions noted Neuro: General: No patient oriented x3 Extrem: General: Yes normal to inspection Psych: Mental Status: mental status grossly abnormal Objective Data Active Medications Acetaminophen (Acetaminophen 325 Mg Tablet) 650 mg PO Q6H PRN PRN Reason: moderate pain Last Admin: 08/11/22 20:28 Dose: 650 mg Documented By: RADHA Albuterol/Ipratropium (Albuterol/Iprat 2.5/0.5mg 3 Ml Ampul.Neb) 3 ml INHALE RQ4H PRN PRN Reason: Shortness of Breath/Wheezing Last Admin: 08/11/22 20:32 Dose: 3 ml Documented By: ELOISA Amiodarone HCl (Amiodarone Hcl 200 Mg Tablet) 400 mg PO BID [facility] Aspirin (Aspirin Enteric Coated 81 Mg Tablet.) 81 mg PO DAILY [facility] Last Admin: 08/11/22 08:32 Dose: 81 mg Documented By: MARIZA Carvedilol (Carvedilol 3.125 Mg Tablet) 3.125 mg PO BID [facility]; Protocol Last Admin: 08/11/22 20:25 Dose: 3.125 mg Documented By: RADHA Divalproex Sodium (Divalproex Sodium Sprinkles 125 Mg ) 1,000 mg PO DAILY [facility] Last Admin: 08/11/22 08:32 Dose: 1,000 mg Documented By: MARIZA Enoxaparin Sodium (Enoxaparin Sodium 40 Mg/0.4 Ml Syringe) 40 mg SUBCUT Q24H [facility] Last Admin: 08/11/22 08:32 Dose: 40 mg Documented By: MARIZA Famotidine (Famotidine/Pf 20 Mg/2 Ml Vial) 20 mg IVPUSH BID [facility] Last Admin: 08/11/22 20:25 Dose: 20 mg Documented By: RADHA Pharmacy Consult (Consult Rx Perform Med Rec) 1 each MISCELLANE ONCE PRN PRN Reason: Consult order Labs 08/11/22 06:48 08/11/22 20:48 Labs: Laboratory Results - last 24 hr 08/11/22 08/11/22 08/11/22 11:22 15:56 19:39 O2 Saturation ABG pH at Pt Temp ABG pCO2 at Pt Temp ABG pO2 at Pt Temp ABG HCO3 ABG Base Excess (Actual) Anion Gap Estim Creat Clear Calc Estimated GFR POC Glucose 107 135 H 139 H Random Glucose Calcium Magnesium Troponin I High Sens B-Natriuretic Peptide 08/11/22 08/11/22 08/11/22 20:27 20:48 20:48 O2 Saturation 93.0 ABG pH at Pt Temp 7.38 ABG pCO2 at Pt Temp 52 H ABG pO2 at Pt Temp 73 L ABG HCO3 31 H ABG Base Excess (Actual) 5.6 Anion Gap 13 Estim Creat Clear Calc 80.3 Estimated GFR > 60 POC Glucose Random Glucose 138 H Calcium 8.8 Magnesium 2.2 Troponin I High Sens B-Natriuretic Peptide 1809 H 08/12/22 08/12/22 05:40 07:46 O2 Saturation ABG pH at Pt Temp ABG pCO2 at Pt Temp ABG pO2 at Pt Temp ABG HCO3 ABG Base Excess (Actual) Anion Gap Estim Creat Clear Calc Estimated GFR POC Glucose 96 Random Glucose Calcium Magnesium Troponin I High Sens 213.5 H* D B-Natriuretic Peptide Assessment and Plan (1) Ischemic congestive cardiomyopathy: Status: Acute Plan 76M PMH COPD, CHF, schizophrenia, epilepsy, prostate ca, htn, tardive dyskenisia, presented from [facility] with repsiratory distressed, sustained Vtach, cardiogenic shock, was cardioverted successfully admitted to icu, did not need intubation. echo showed severe cardiomyoipathy ef<10%, now stable and downgraded to med/tele. cardiogenic shock due to sustained vtach in patient with presumed ischemic cardiomyopathy more episodes of vtach, continue amio 400mg bid, coreg 3.125mg bid cardio appreciated, plan for conservative care geoffrey resolved epilepsy, schizophrenia depakote copd stable dvt prophylaxis - lovenox full code reason for continued hospitalization: continue to monitor for vtach Time Spent With Patient Time: Total time managing care of this patient today ____ minutes. Quality Stroke Does the patient have a stroke diagnosis?: No VTE Prior VTE?: No VTE Risk Level:: Medical - moderate - high VTE Device Contraindication: N/A - Device Ordered VTE Drug Contraindication: N/A - Med Ordered
[2022-08-12] MEDS: Famotidine/PF 20 MG/2 ML VIAL IVPUSH ×2 (09:57→21:24)
[2022-08-12] MEDS: Amiodarone HCL 200 MG TABLET 400 MG PO ×2 (09:57→21:24)
[2022-08-12] MEDS: Enoxaparin Sodium 40 MG/0.4 ML SYRINGE SUBCUT (09:57)
[2022-08-12] MEDS: carvediloL 3.125 MG TABLET PO ×2 (09:57→21:24)
[2022-08-12] MEDS: Aspirin Enteric Coated 81 MG TABLET.DR PO (09:58)
[2022-08-12] MEDS: Divalproex Sodium Sprinkles 125 MG CAP.DR.SPR 1000 MG PO (09:58)
--- NOTE | 2022-08-12 10:59 | P.PNCA_ITS ---
Subjective Subjective Date of Service: 08/12/22 Interval history: Discussed with patient using communications designer. States that he is doing okay. Seems partially reliable. Denies any chest pain or shortness of breath or any cardiac symptoms. Review of Systems Review of Systems Yes all other systems are reviewed and are negative Constitutional: Reports as per HPI and Reports no additional constitutional complaints Eyes: Reports as per HPI and Denies no additional eye complaints Denies system reviewed and no additional complaints, except as documented and Reports as per HPI Cardiovascular: Reports as per HPI, Reports no additional cardiovascular complaints, Denies acrocyanosis, Denies cool extremities, Denies chest pain, Denies leg edema, Denies lightheadedness, Denies palpitations and Denies dyspnea Respiratory: Reports as per HPI, Denies no additional respiratory complaints and Denies dyspnea Gastrointestinal: Reports as per HPI and Denies no additional gastrointestinal complaints Genitourinary: Reports no additional male genitourinary complaints and Reports as per HPI Musculoskeletal: Reports no additional musculoskeletal complaints and Reports as per HPI Skin/Breast: Reports system reviewed and no additional complaints, except as docu Reports system reviewed and no additional complaints, except as documented and Reports as per HPI Psychiatric: Reports no additional psychiatric complaints and Reports as per HPI Endocrine: Reports no additional endocrine complaints, Reports as per HPI and Denies palpitations Hematologic/Lymphatic: Reports no additional hematologic/lymphatic complaints and Reports as per HPI Allergic/Immunologic: Reports no additional allergic/immunologic complaints and Reports as per HPI Physical Exam Vital Signs: Last Vital Signs Temp 96.9 F 08/12/22 07:40 Pulse 62 08/12/22 07:40 Resp 21 H 08/12/22 07:40 BP 108/70 08/12/22 07:40 Pulse Ox 95 08/12/22 07:40 O2 Del Method Room Air 08/12/22 07:40 O2 Flow Rate 16 08/10/22 00:00 FiO2 21 08/10/22 00:00 Oxygen Flow Rate 6 08/08/22 05:41 BMI result Body Mass Index 32.3 Const General: comfortable and no acute distress Orientation/consciousness: No patient oriented x3 HEENT Other: Unremarkable Head: Yes normal to inspection Neck Neck: Yes normal visual inspection Chest Chest palpation & inspection: normal inspection of the chest Resp Auscultation: clear to auscultation bilaterally Cardio Palpation: normal PMI Heart sounds: S1 normal heart sound present, S2 normal heart sound present, no gallops, no murmurs and no rubs GI Palpation (GI): Soft to palpation Back/Spine/Pelvis Other: unremarkable Skin General skin exam: no rashes or lesions noted Neuro General: No patient oriented x3 Extrem General: Yes normal to inspection Psych Mental Status: mental status grossly abnormal Objective Labs and Meds 08/11/22 06:48 08/11/22 20:48 Lab results: Laboratory Results - last 24 hr 08/11/22 08/11/22 08/11/22 11:22 15:56 19:39 O2 Saturation ABG pH at Pt Temp ABG pCO2 at Pt Temp ABG pO2 at Pt Temp ABG HCO3 ABG Base Excess (Actual) Sodium Potassium Chloride Carbon Dioxide Anion Gap BUN Creatinine Estim Creat Clear Calc Estimated GFR POC Glucose 107 135 H 139 H Random Glucose Calcium Magnesium Troponin I High Sens B-Natriuretic Peptide 08/11/22 08/11/22 08/11/22 20:27 20:48 20:48 O2 Saturation 93.0 ABG pH at Pt Temp 7.38 ABG pCO2 at Pt Temp 52 H ABG pO2 at Pt Temp 73 L ABG HCO3 31 H ABG Base Excess (Actual) 5.6 Sodium 143 Potassium 4.8 Chloride 106 Carbon Dioxide 29 Anion Gap 13 BUN 30 H Creatinine 0.78 Estim Creat Clear Calc 80.3 Estimated GFR > 60 POC Glucose Random Glucose 138 H Calcium 8.8 Magnesium 2.2 Troponin I High Sens B-Natriuretic Peptide 1809 H 08/12/22 08/12/22 05:40 07:46 O2 Saturation ABG pH at Pt Temp ABG pCO2 at Pt Temp ABG pO2 at Pt Temp ABG HCO3 ABG Base Excess (Actual) Sodium Potassium Chloride Carbon Dioxide Anion Gap BUN Creatinine Estim Creat Clear Calc Estimated GFR POC Glucose 96 Random Glucose Calcium Magnesium Troponin I High Sens 213.5 H* D B-Natriuretic Peptide Imaging Radiologist's impression: Impressions Chest X-Ray 08/11/22 21:10 IMPRESSION: Increasing retrocardiac left basilar opacity with possible small pleural effusion. Mild streaky right basilar opacity suggesting atelectasis. Central vascular congestion without overt edema. Progress Note: A&P Assessment and plan (1) Ischemic congestive cardiomyopathy: Status: Acute (2) Acute coronary syndrome with high troponin: Status: Acute (3) Ventricular tachycardia: Status: Acute Plan Initial EKG showed ventricular tachycardia. Now showing sinus rhythm by telemetry still has PVCs. Troponins peaked at 2700. Echocardiogram with severely increased left ventricular cavity size and severely impaired function with an ejection fraction less than 10%. Overall, NSTEMI, severe cardiomyopathy, ventricular arrhythmias, severe mental impairment. Mainly due to neurological/psychiatric issues not suitable for anything invasive a cardiac catheterization or ICD placement. Empiric amiodarone use. After 2 weeks of loading, can do maintenance 200 mg daily. May need to check Depakote levels if there is interference with amiodarone. He is also on beta-blockers but blood pressure is also lowish. Hence not much room. May not be suitable further guideline based medical therapy due to low blood pressure issues. LFTs will need to be followed up. Discussed with Dr. Carias. Goals of care need to be decided. Guarded prognosis and high likelihood of . Time Spent With Patient Time: Total time managing care of this patient today ____ minutes. Progress Note: Quality Stroke Does the patient have a stroke diagnosis?: No Procedures Date of Service Date of Service: 08/12/22
[2022-08-12 11:52] LABS: Glucose, Whole Blood 101 mg/dL (60-115)
[2022-08-12 12:26] LABS: Alanine Aminotransferase 448 U/L (0-40); Albumin Level 3.4 g/dL (3.5-5.0); Alkaline Phosphatase 66 U/L (39-117); Aspartate Amino Transferase 86 U/L (5-37); Bilirubin Direct 0.4 mg/dL (0.0-0.5); Bilirubin Total 0.8 mg/dL (0.0-1.0); Total Protein 5.7 g/dL (6.5-8.0)
[2022-08-12 16:03] LABS: Glucose, Whole Blood 123 mg/dL (60-115)
[2022-08-12 19:43] LABS: Glucose, Whole Blood 112 mg/dL (60-115)
[2022-08-13 03:54] VITALS: BP 102/69; PULSE 53; RESP 20; TEMP 36.3; O2SAT 94
[2022-08-13 04:38] VITALS: PULSE 53; RESP 20; O2SAT 94
[2022-08-13 06:00] VITALS: BMI 31.8
[2022-08-13 06:01] LABS: Hematocrit 41.9 % (42.0-52.0); Mean Corpuscular Hemoglobin 31.4 pg (27.0-33.0); Mean Corpuscular Volume 101.2 fL (80.0-98.0); Mean Platelet Volume 10.7 fL (9.4-12.4); PLT CLUMP 1; Red Blood Count 4.14 X10*6/uL (4.60-5.80); Red Cell Distribution Width 15.1 % (11.0-16.0)
[2022-08-13 06:15] LABS: Valproate 42.6 mcg/mL (50.0-100.0)
[2022-08-13 06:24] LABS: White Blood Count 3.7 X10*3/uL (4.8-10.8)
[2022-08-13 06:25] LABS: Platelet Count 166 X10*3/uL (160-400)
[2022-08-13 06:33] LABS: Alanine Aminotransferase 257 U/L (0-40); Albumin Level 2.9 g/dL (3.5-5.0); Alkaline Phosphatase 63 U/L (39-117); Anion Gap 12 (12-20); Aspartate Amino Transferase 31 U/L (5-37); Bilirubin Direct 0.2 mg/dL (0.0-0.5); Bilirubin Total 0.5 mg/dL (0.0-1.0); Blood Urea Nitrogen 25 mg/dL (9-16); Calcium 8.5 mg/dL (8.4-10.2); Carbon Dioxide 29 mmol/L (22-29); Chloride 108 mmol/L (96-108); Creatinine Clr Calc Pharmacy 94.9; Estimated Glomerular Filt Rate > 60; Glucose Fasting 86 mg/dL (60-99); Magnesium 2.4 mg/dL (1.6-2.6); Sodium 144 mmol/L (135-145); Total Protein 5.1 g/dL (6.5-8.0)
[2022-08-13 07:27] LABS: Glucose, Whole Blood 77 mg/dL (60-115)
[2022-08-13 07:39] VITALS: BP 116/75; PULSE 53; RESP 20; TEMP 36; O2SAT 92
[2022-08-13] MEDS: Divalproex Sodium Sprinkles 125 MG CAP.DR.SPR 1000 MG PO (08:02)
[2022-08-13] MEDS: Famotidine/PF 20 MG/2 ML VIAL IVPUSH (08:03)
[2022-08-13] MEDS: carvediloL 3.125 MG TABLET PO (08:03)
[2022-08-13] MEDS: Aspirin Enteric Coated 81 MG TABLET.DR PO (08:03)
[2022-08-13] MEDS: Enoxaparin Sodium 40 MG/0.4 ML SYRINGE SUBCUT (08:03)
[2022-08-13] MEDS: Amiodarone HCL 200 MG TABLET 400 MG PO (08:03)
--- NOTE | 2022-08-13 10:36 | P.DS_ITS ---
DS: Providers Provider Date of Service: 08/13/22 Date of admission: 08/08/22 07:50 Primary care physician: Richard Castillo DO Consults: 08/09/22 12:10 Consult to Cardiology Routine Consulting Provider: [facility] Cardi[facility] Reason for consultation: ACS, cardiomyopathy, Vtach DS: Diagnosis Discharge Diagnosis (1) Ischemic congestive cardiomyopathy: Status: Acute (2) Acute coronary syndrome with high troponin: Status: Acute (3) Ventricular tachycardia: Status: Acute DS: Summary Hospital Course Hospital Course: from initial hpi: 76-year-old male care 1 resident background history of hypertension and COPD with chronic tardive dyskinesia was noted to be in respiratory distress brought in by EMS and he was hypotensive thus hemodynamically unstable and he was in ventricular tachycardia cardioverted x1 successfully and started on amiodarone and he did not require intubation but my bedside echo showed he had severely depressed LV function consistent with congestive cardiomyopathy ejection fraction in the mid teens and with that we supported him mechanically with the BiPAP and he did have a at least a mild acute kidney injury with a baseline creatinine normally 0.67 rising to 1.18 he has since had marginal but adequate urine output so technically nonoliguric at 25 cc/hour no clinical signs of con gestion at this point but very difficult to gauge his volume status without a CVP to measure because he does not look total body fluid overloaded I believe this is just lung 3rd spacing in 0 as a result of the acute coronary event but at this point on BiPAP it is improving hospital course: Patient was admitted for NSTEMI and sustained ventricular tachycardia complicated by cardiogenic shock and acute kidney injury. He was admitted to the intensive care unit and treated with electrical cardioversion and started on amiodarone. Echocardiogram showed severe EF of less than 10%. he was downgraded to medical floor. seen by cardio, recommended 2 weeks amio load, then 200mg daily, started on coreg 3.125mg bid, patient not deemed to be a good candidate for aggressive therapy with coronary revascularization or aicd. patient is approaching end of life and goals of care should be addressed as outpatient. patient's SAGE resolved, for epilepsy and schizophrenia was treated with depakote, copd remained stable. patient did have brief episode of acute hypoxic respiratory failure and hypotension due to aspiration event, which has resolved. no evidence of pneumonia. Time Spent with Patient Time attestation: Total time managing care of this patient today ____ minutes. Discharge coordination time: Greater than 30 minutes Quality: Safe Use of Opioids Does Pt have an Active Cancer Diagnosis on the Problem List?: No Quality: Stroke Does the patient have a stroke diagnosis?: No Physical Exam Vital Signs: Vital Signs: Last Vital Signs Temp 96.8 F 08/13/22 07:39 Pulse 53 08/13/22 07:39 Resp 20 08/13/22 07:39 BP 116/75 08/13/22 07:39 Pulse Ox 92 08/13/22 07:39 O2 Del Method BiPAP 08/13/22 07:39 O2 Flow Rate 16 08/10/22 00:00 FiO2 21 08/10/22 00:00 Oxygen Flow Rate 6 08/08/22 05:41 BMI result Body Mass Index 31.8 Const: General: comfortable and no acute distress Orientation/cons ciousness: No patient oriented x3 HEENT: Other: Unremarkable Head: Yes normal to inspection Neck: Neck: Yes normal visual inspection Chest: Chest palpation & inspection: normal inspection of the chest Resp: Auscultation: clear to auscultation bilaterally Cardio: Palpation: normal PMI Heart sounds: S1 normal heart sound present, S2 normal heart sound present, no gallops, no murmurs and no rubs GI: Palpation (GI): Soft to palpation Back/Spine/Pelvis: Other: unremarkable Skin: General skin exam: no rashes or lesions noted Neuro: General: No patient oriented x3 Extrem: General: Yes normal to inspection Psych: Mental Status: mental status grossly abnormal DS: Data Data Completed and Pending Completed studies during hospitalization [Text1]: Procedures Assistance with Respiratory Ventilation, Less than 24 Consecutive Hours, Continuous Positive Airway Pressure (03/08/22) Labs on day of discharge: Laboratory Results - last 24 hr 08/11/22 08/12/22 08/12/22 20:48 11:13 15:56 WBC RBC Hgb Hct MCV MCH MCHC RDW Plt Count MPV Absolute Nucleated RBC Nucleated RBC % (auto) Sodium Potassium Chloride Carbon Dioxide Anion Gap BUN Creatinine Estim Creat Clear Calc Estimated GFR POC Glucose 101 123 H Fasting Glucose Calcium Magnesium Total Bilirubin 0.8 Direct Bilirubin 0.4 AST 86 H ALT 448 H Alkaline Phosphatase 66 Total Protein 5.7 L Albumin 3.4 L Valproic Acid 08/12/22 08/13/2208/13/23 19:34 05:40 05:40 WBC 3.7 L RBC 4.14 L Hgb 13.0 L Hct 41.9 L MCV 101.2 H D MCH 31.4 MCHC 31.0 RDW 15.1 Plt Count 166 D MPV 10.7 Absolute Nucleated RBC 0.000 Nucleated RBC % (auto) 0.0 Sodium Potassium Chloride Carbon Dioxide Anion Gap BUN Creatinine Estim Creat Clear Calc Estimated GFR POC Glucose 112 Fasting Glucose Calcium Magnesium Total Bilirubin Direct Bilirubin AST ALT Alkaline Phosphatase Total Protein Albumin Valproic Acid 42.6 L 08/13/22 08/13/22 05:40 07:07 WBC RBC Hgb Hct MCV MCH MCHC RDW Plt Count MPV Absolute Nucleated RBC Nucleated RBC % (auto) Sodium 144 Potassium 5.0 Chloride 108 Carbon Dioxide 29 Anion Gap 12 BUN 25 H Creatinine 0.67 Estim Creat Clear Calc 94.9 Estimated GFR > 60 POC Glucose 77 Fasting Glucose 86 Calcium 8.5 Magnesium 2.4 Total Bilirubin 0.5 Direct Bilirubin 0.2 AST 31 ALT 257 H Alkaline Phosphatase 63 Total Protein 5.1 L Albumin 2.9 L Valproic Acid Discharge Plan Discharge Anticipated Discharge Date/Time: 08/13/22 10:30 Patient Disposition: Xfer [facility] Discharge Diagnosis: nstemi, vtach, cardiogenic shock Referrals: [facility] [Outside] - 1 Week Richard Castillo DO [Primary Care Provider] - 1 Week Discharge Medications: New amiodarone 200 mg Tablet 400 mg PO BID 10 Days Qty: 40 0RF Rx Instructions: 400mg bid for 10 more days then decrease to 200mg daily carvedilol 3.125 mg Tablet 3.125 mg PO BID Qty: 0 0RF Protocol: Hold for SBP/HR < HOLD for SBP < : 90 HOLD for HR < : 60 Continued acetaminophen 325 mg Capsule 650 mg PO Q4H PRN (Reason: Pain) bicalutamide 50 mg Tablet 50 mg PO DAILY lorazepam [Ativan] 2 mg/mL Solution 1 mg IM Q5M PRN (Reason: Seizure Activity) Rx Instructions: may repeat Q 5 minutes x 3 omeprazole 20 mg Capsule,Delayed Release(Dr/Ec) 20 mg PO DAILY@0630 furosemide [Lasix] 20 mg Tablet 20 mg PO DAILY levalbuterol tartrate 45 mcg/actuation Hfa Aerosol Inhaler 2 puff INHALATION Q4H PRN (Reason: cough) sennosides [senna] 8.6 mg Tablet 8.6 mg PO DAILY PRN (Reason: Constipation) guaifenesin 100 mg/5 mL Liquid 200 mg PO Q6H PRN (Reason: Cough) Fleet Enema 19-7 gram/118 mL Enema 118 ml HI DAILY PRN (Reason: Constipation) alum-mag hydroxide-simeth 200-200-20 mg/5 mL Suspension 20 ml PO Q4H PRN (Reason: Dyspepsia) Artificial Tears (PF) 0.1-0.3 % Dropperette 1 drp OPHTHALMIC (EYE) Q8H PRN (Reason: Dry Eyes) sennosides [senna] 8.6 mg Tablet 8.6 mg PO BID doxycycline hyclate 50 mg capsule 50 mg PO DAILY Rx Instructions: cellulitis prophylaxis aspirin 81 mg Tablet,Delayed Release (Dr/Ec) 81 mg PO DAILY bisacodyl 10 mg Suppository 10 mg HI DAILY PRN (Reason: Constipation) ergocalciferol (vitamin D2) 1,250 mcg (50,000 unit) Capsule 1,250 mcg PO DAILY Rx Instructions: until 08/13/22 levalbuterol tartrate 45 mcg/actuation HFA aerosol inhaler 2 puff inhalation BID divalproex 125 mg capsule, delayed rel sprinkle 1,000 mg PO DAILY Changed lactulose 10 gram/15 mL solution 30 ml PO TID PRN (Reason: constipation) Qty: 237 0RF Discontinued amlodipine 5 mg Tablet 5 mg PO DAILY ibuprofen 200 mg Tablet 600 mg PO Q6H PRN (Reason: Pain) Hold Instructions: Resume on 11/20/21. Discharge Orders: Discharge Order (Routine); Ordered 08/13/22 Ordered By: Calos Carias Diet: Advance to usual diet Activity on Discharge: As tolerated Stand Alone Forms: Patient Portal Discharge page Care Plan Goals: end of life care, try to prevent sustatained vtach Health Concerns: severe cardiomyopathy, vtach Plan of Treatment: amiodarone 400mg bid for 10 more days then 200mg daily. patient unlikely to benefit from aggressive therapy (coronary revascularization, AICD), guarded prognosis, patient appropriate for end of life care Assessment: see above
[2022-08-13 11:18] LABS: Glucose, Whole Blood 114 mg/dL (60-115)
[2022-08-13 11:26] VITALS: BP 123/69; PULSE 61; RESP 20; TEMP 36.6; O2SAT 96
--- NOTE | 2022-08-13 11:44 | MHC.SL.SWA ---
Speech Pathologist Impression: Risk of aspiration, oropharyngeal dysphagia Risk of Aspiration Due to: Neurological Condition History of Pneumonia Dysphasia Diet Status: No Changes Liquid Consistency and Strategies for Safe Swallow: Liquid Intake Recommendation: Sublimity Thick Liquid Intake Strategies: Small Sips No Straws Liquids by Teaspoon Only Solid Food Consistency: Dietary Recommendations: Pureed (NDD1) Additional Modifications to Solid Foods: Patient will require 1-1 feeding, with Sublimity Thick Liquids by TSP only. Pace presentation to prevent patient taking in food too rapidly, and closely monitor for clinical signs of aspiration (discontinue meal if evident). Primary risk for aspiration is secondary to rapid intake of food while inhaling (patient evidenced frequent burping related to this issue). Oral Medication Intake: Crushed with Puree Please contact the pharmacy regarding appropriate crushable or liquid drug formulations that are available whenever modified delivery is recommended. Compensatory Strategies and Precautions to be Taken for Safe Swallow: Sitting Upright (90 deg) No Straw Liquids from Spoon Small Bites and Sips Alternate Liquids/Solids Rate of Ingestion Change Supervision While Eating and Drinking for Safe Swallow: Total Assistance (1:1) Foods to Avoid: Mixed textures, tough consistencies, very sticky or congealed purees. Avoid soups with mixed textures. Swallowing Recommended Treatments: Compens. Strategy Educat. Recommendation for Speech: Inpatient Speech Therapy Tractor Expert Clinican/Clinical Fellow: No Supervisory Statement: I have reviewed and agree with the student/clinical fellow's documentation: N/A Speech Language Pathologist: Cristy Damico M.A., CCC-CIRCUIT DESIGN ENGINEER
--- NOTE | 2022-08-13 11:45 | MHC.CM.PN ---
Patient has been medically cleared for dc today to return to LTC. Patient will return to LTC @ [facility] today at 3PM, via [facility]. JOSE spoke with Guardian/Bethanie @ [phone] and addressed IMM with her (original to be mailed to Bethanie and a copy has been placed on the chart).
[2022-08-13 12:10] LABS: COVID-19 Test Negative (Negative); IDNOW Serial# BCCEAD1C
--- NOTE | 2022-08-13 13:15 | PM.PNCARD ---
Subjective Subjective Date of Service: 08/13/22 Interval history: Seen examined at bedside. On amiodarone for ventricular tachycardia. Echocardiography has shown severe LV dysfunction. Physical Exam Vital Signs: Last Vital Signs Temp 97.9 F 08/13/22 11:26 Pulse 61 08/13/22 11:26 Resp 20 08/13/22 11:26 BP 123/69 08/13/22 11:26 Pulse Ox 96 08/13/22 11:26 O2 Del Method Room Air 08/13/22 11:26 O2 Flow Rate 16 08/10/22 00:00 FiO2 21 08/10/22 00:00 Oxygen Flow Rate 6 08/08/22 05:41 BMI result Body Mass Index 31.8 GENERAL APPEARANCE: Continuously moving and smacking tongue due to tardive dyskinesia. NECK: no carotid bruit, no obvious jugular venous distention. SKIN: no suspicious lesions, warm and dry. HEART: no murmurs, regular rate and rhythm. LUNGS: Crackles left lung base. ABDOMEN: soft, nontender. EXTREMITIES: no edema. PERIPHERAL PULSES: equal. Objective Labs and Meds 08/13/22 05:40 08/13/22 05:40 Lab results: Laboratory Results - last 24 hr 08/12/22 08/12/22 08/13/22 15:56 19:34 05:40 WBC RBC Hgb Hct MCV MCH MCHC RDW Plt Count MPV Absolute Nucleated RBC Nucleated RBC % (auto) Sodium Potassium Chloride Carbon Dioxide Anion Gap BUN Creatinine Estim Creat Clear Calc Estimated GFR POC Glucose 123 H 112 Fasting Glucose Calcium Magnesium Total Bilirubin Direct Bilirubin AST ALT Alkaline Phosphatase Total Protein Albumin Valproic Acid 42.6 L COVID-19 ([facility]) COVID-19 Clin Com 08/13/22 08/13/22 08/13/22 05:40 05:40 07:07 WBC 3.7 L RBC 4.14 L Hgb 13.0 L Hct 41.9 L MCV 101.2 H D MCH 31.4 MCHC 31.0 RDW 15.1 Plt Count 166 D MPV 10.7 Absolute Nucleated RBC 0.000 Nucleated RBC % (auto) 0.0 Sodium 144 Potassium 5.0 Chloride 108 Carbon Dioxide 29 Anion Gap 12 BUN 25 H Creatinine 0.67 Estim Creat Clear Calc 94.9 Estimated GFR > 60 POC Glucose 77 Fasting Glucose 86 Calcium 8.5 Magnesium 2.4 Total Bilirubin 0.5 Direct Bilirubin 0.2 AST 31 ALT 257 H Alkaline Phosphatase 63 Total Protein 5.1 L Albumin 2.9 L Valproic Acid COVID-19 ([facility]) COVID-19 Clin Com 08/13/22 08/13/22 11:05 11:36 WBC RBC Hgb Hct MCV MCH MCHC RDW Plt Count MPV Absolute Nucleated RBC Nucleated RBC % (auto) Sodium Potassium Chloride Carbon Dioxide Anion Gap BUN Creatinine Estim Creat Clear Calc Estimated GFR POC Glucose 114 Fasting Glucose Calcium Magnesium Total Bilirubin Direct Bilirubin AST ALT Alkaline Phosphatase Total Protein Albumin Valproic Acid COVID-19 ([facility]) Negative COVID-19 Clin Com See Note Progress Note: A&P Assessment and plan (1) Ischemic congestive cardiomyopathy: Status: Acute (2) Acute coronary syndrome with high troponin: Status: Acute (3) Ventricular tachycardia: Status: Acute Plan 76-year-old gentleman with psychiatric illness in tired I have dyskinesia currently lives in [facility]. He had ventricular tachycardia and has been on amiodarone. Echocardiography has shown severely dilated left ventricle with severe LV dysfunction with EF less than 10%. Right ventricular function was also severely reduced. Clinically appears to be euvolemic at this stage. Continue amiodarone as before. Agree with the previous planned that he is not a candidate for any aggressive measures at this point. Continue amiodarone 4 mg b.i.d. for 10 days and then change to 200 mg once a day. He will need goals of care discussion because he has chance of developing ventricular tachycardia again. He is not a candidate for ICD or any aggressive procedures. Thank you for allowing me to participate in the care of your patient. Please feel free to contact me if you have any questions. Time Spent With Patient Time: Total time managing care of this patient today ____ minutes. Progress Note: Quality Stroke Does the patient have a stroke diagnosis?: No Procedures Date of Service Date of Service: 08/13/22
== END 2022-08-13 16:11 | DRG 280 ==
LOC: HO.ED 06:57 → HO.EDOVER 08:06 → HO.ICU 11:06 → HO.IMC 08-09 12:15
PROVIDERS: Internal Medicine; Nurse Practitioner Family; Student in an Organized Health Care Education/Training Program; Admitting Provider Internal Medicine Cardiovascular Disease; Emergency Provider Emergency Medicine; PCP Hospitalist; Visit Provider Internal Medicine
DX: I47.20 Ventricular tachycardia, unspecified (principal); J69.0 Pneumonitis due to inhalation of food and vomit; I21.4 Non-ST elevation (NSTEMI) myocardial infarction; R57.0 Cardiogenic shock; J96.01 Acute respiratory failure with hypoxia; N17.9 Acute kidney failure, unspecified; F20.9 Schizophrenia, unspecified; E83.42 Hypomagnesemia; I25.5 Ischemic cardiomyopathy; J44.9 Chronic obstructive pulmonary disease, unspecified; G24.01 Drug induced subacute dyskinesia; E87.6 Hypokalemia; G40.909 Epilepsy, unspecified, not intractable, without status epilepticus; Z20.822 Contact with and (suspected) exposure to COVID-19; Z79.82 Long term (current) use of aspirin; Z79.899 Other long term (current) drug therapy
CPT/HCPCS: 36415; 36600; 71045; 80048; 80053; 80061; 80076; 80164; 81001; 82803; 82947; 83605; 83690; 83735; 83880; 84100; 84484; 85025; 85027; 85610; 85730; 87040; 87086; 87633; 87635; 92526; 92610; 93005; 93306; 94640; 94660; 99285; C1758; J0153; J0282; J0283; J0613; J1650; J2270; J3475; Q9957

== ENCOUNTER 2022-08-22 19:31 | Inpatient (IN) | payer MEDICARE, MEDICAID, SELFPAY ==
[2022-08-22] VITALS (8 sets, daily range): BP systolic 100–141; BP diastolic 56–94; PULSE 50–114; RESP 18–28; TEMP 36.4; O2SAT 80–100; BMI 26.2
--- NOTE | ~2022-08-22 | XR_ITS ---
EXAMINATION: XR CHEST CLINICAL INFORMATION: Shortness of breath COMPARISON: 08/11/2022 TECHNIQUE: Frontal view of the chest was obtained. FINDINGS: Lungs are mildly hypoinflated. There are a few streaky opacities of atelectasis in lower lung zones. The right lateral costophrenic sulcus is slightly ill-defined, likely from trace pleural effusion. There appears to be thickening of peribronchial interstitium. Cardiac silhouette is normal in size. No pneumothorax. The visualized bones of the thorax are intact. Incidentally noted is a left mandibular fixation plate and screws. XR/XR chest 1V IMPRESSION: * Linear, streaky opacities of bibasilar atelectasis. No overt consolidation. * There appears to be mild thickening of airway john or peribronchial interstitium. Differential diagnostic considerations would include mild pulmonary edema or inflammatory thickening of bronchial jhon.
--- NOTE | ~2022-08-22 | CT_ITS ---
EXAMINATION: CT ANGIOGRAM OF THE CHEST WITH AND WITHOUT CONTRAST (CT PULMONARY ANGIOGRAM FOR PE) CLINICAL INFORMATION: Reason for Exam + dimer, sob, hypoxia COMPARISON: Chest radiograph earlier today, CT chest 11/10/2021 TECHNIQUE: Prior to contrast administration, noncontrast localization images were obtained. Subsequently, multidetector volumetric imaging was performed from the thoracic inlet to below the diaphragms following the administration of 65 mL Omnipaque 350 intravenous contrast. No contrast reaction reported Sagittal, coronal, and MIP oblique sagittal reformatted images were obtained on the CT workstation, uploaded to PACS, and reviewed. This CT examination was performed using dose optimization techniques as appropriate, variously including the following: *Automated exposure control *Adjustment of mA and/or kV according to patient size (this includes techniques or standardized protocols for targeted exams where dose is matched to indication/reason for exam; i.e. extremities or head) *Use of iterative reconstruction technique Total exam dose-length product 509 mGy-cm FINDINGS: QUALITY OF STUDY/CONTRAST BOLUS: Satisfactory. PULMONARY ARTERIES: No pulmonary emboli. THORACIC AORTA: No aneurysm. LUNGS AND PLEURA: There is bibasilar atelectasis with trace pleural effusions seen, left greater than right. MEDIASTINUM: Heart size upper limits of normal. No pericardial effusion. No hilar or mediastinal lymphadenopathy. No evidence of septal bowing or right heart strain. CORONARY ARTERY CALCIFICATION: Present CHEST WALL/AXILLA: Gynecomastia is present. No axillary or internal mammary lymphadenopathy. OSSEOUS STRUCTURES: No acute or suspicious osseous abnormality. Degenerative changes are present in the visualized lower cervical spine as well as throughout the thoracic spine. No bony destructive lesions. UPPER ABDOMEN: Unremarkable. No reflux of contrast into the hepatic veins to suggest elevated right heart pressures. CT/CT angio chest PE protocol IMPRESSION: 1. No evidence of pulmonary emboli. 2. Bibasilar atelectasis with trace pleural effusions. VTE: negative.
--- NOTE | ~2022-08-22 | XR_ITS ---
EXAMINATION: XR CHEST CLINICAL INFORMATION: Central venous line placement. COMPARISON: Previous day TECHNIQUE: Frontal view of the chest was obtained. FINDINGS: Patient is rotated leftward. Right internal jugular central venous catheter terminates in the right atrium. No pneumothorax. Small bilateral pleural effusions and accompanying atelectasis appearing similar to prior. Stable cardiomediastinal silhouette. No acute osseous abnormalities. XR/XR chest 1V IMPRESSION: * Right internal jugular central venous catheter terminates in the right atrium. * No pneumothorax.
--- NOTE | 2022-08-22 19:34 | ECG_ITS ---
Test Reason : cp Blood Pressure : / mmHG Vent. Rate : 088 BPM Atrial Rate : 088 BPM P-R Int : 206 ms QRS Dur : 138 ms QT Int : 400 ms P-R-T Axes : 032 225 031 degrees QTc Int : 484 ms Sinus rhythm with occasional Premature ventricular complexes Possible Left atrial enlargement Right bundle branch block Abnormal ECG When compared with ECG of 12-AUG-2022 04:24, Premature ventricular complexes are now Present Vent. rate has increased BY 32 BPM Referred By: Brent Laureano Electronically Signed By:PHILLIP DENNISON
--- NOTE | 2022-08-22 19:47 | ED_ITS ---
HPI - General Adult General Chief complaint: General Medical Stated complaint: CP, SOB, NON VERBAL Time Seen by Provider: 08/22/22 19:34 Source: EMS Mode of arrival: EMS Limitations: other (non vernbal ) History of Present Illness HPI narrative: 76-year-old male history of COPD, CHF, schizophrenia, epilepsy, prostate cancer, hypertension and heart type dyskinesia recently discharged from this hospital with NSTEMI, COPD, tardive dyskinesia, respiratory failure with hypoxia and hypercapnia, and pneumonia due to acinetobacter species. Presenting from [facility] for SOB, chest pain. Patient minimally verbal at baseline unable to provide me a history. History obtained from EMS and patient medical recods/ chart that came with him. Related Data Home Medications Medication Instructions Recorded Confirmed acetaminophen 325 mg capsule 650 mg PO Q4H PRN Pain 01/19/20 08/23/22 bicalutamide 50 mg tablet 50 mg PO DAILY 01/19/20 08/23/22 furosemide 20 mg tablet (Lasix) 20 mg PO DAILY 01/19/20 08/23/22 levalbuterol tartrate 45 2 puff inhalation Q4H PRN cough 01/19/20 08/23/22 mcg/actuation aerosol inhaler lorazepam 2 mg/mL injection 1 mg IM Q5M PRN Seizure Activity 01/19/20 08/23/22 solution (Ativan) omeprazole 20 mg capsule,delayed 20 mg PO DAILY@0630 01/19/20 08/23/22 release sennosides 8.6 mg tablet (senna) 8.6 mg PO DAILY PRN Constipation 01/19/20 08/23/22 guaifenesin 100 mg/5 mL oral liquid 200 mg PO Q6H PRN Cough 12/21/21 08/23/22 sodium phosphates 19 gram-7 118 ml NJ DAILY PRN Constipation 12/21/21 08/23/22 gram/118 mL enema (Fleet Enema) aluminum-mag hydroxide-simethicone 20 ml PO Q4H PRN Dyspepsia 03/07/22 08/23/22 200 mg-200 mg-20 mg/5 mL oral susp dextran 70-hypromellose (PF) 0.1 1 drp ophthalmic (eye) Q8H PRN Dry 03/07/22 08/23/22 %-0.3 % eye drops in a dropperette Eyes (Artificial Tears (PF)) aspirin 81 mg tablet,delayed 81 mg PO DAILY 08/08/22 08/23/22 release bisacodyl 10 mg rectal suppository 10 mg NJ DAILY PRN Constipation 08/08/22 08/23/22 divalproex 125 mg capsule,delayed 1,000 mg PO DAILY 08/08/22 08/23/22 release sprinkle doxycycline hyclate 50 mg capsule 50 mg PO DAILY 08/08/22 08/23/22 levalbuterol tartrate 45 2 puff inhalation BID 08/08/22 08/23/22 mcg/actuation aerosol inhaler sennosides 8.6 mg tablet (senna) 8.6 mg PO BID 08/08/22 08/23/22 amiodarone 200 mg tablet 200 mg PO DAILY 08/23/22 08/23/22 Previous Rx's Medication Instructions Recorded carvedilol 3.125 mg tablet 3.125 mg PO BID #0 tabs 08/13/22 lactulose 10 gram/15 mL oral 30 ml PO TID PRN constipation #237 08/13/22 solution mL Allergies Allergy/AdvReac Type Severity Reaction Status Date / Time tuberculin, purified protein Allergy Unknown UNKNOWN Verified 12/21/21 13:21 deriva [Tuberculin,Purif.Prot.Deriv.] Review of Systems Review of Systems: Yes Unobtainable due to mental status PMFSH Past Medical History Attestation statement: The following information was validated with the patient. Source: old records reviewed and nursing notes reviewed Medical History (Updated 08/23/22 @ 10:26 by Abhishek Devries MD) Cervicalgia CHF (congestive heart failure) COPD (chronic obstructive pulmonary disease) Dementia Diabetes type 2, controlled Dysphagia Epilepsy GERD (gastroesophageal reflux disease) Hypertension Muscle weakness (generalized) Pneumonia due to Acinetobacter species Respiratory failure with hypoxia and hypercapnia Schizo affective schizophrenia Spinal stenosis Family History Family History Mother Cancer Social History Social History Household Members: None Housing: [facility] Housing Other:: non verbal Are you a primary care tech to a significant other at home: No Unable to assess alcohol history related to: Unknown Alcohol intake: unknown Patient Tobacco Use Status: Never used Tobacco Second Hand Smoke Exposure: No Currently Displaying Signs/Symptoms of Drug Intoxication Withdrawal: No Advance Directives: No Advance Directives Information Provided: No service: No Current occupational status: disabled Physical Exam ED Vital Signs: Vital Signs - 24 hr 08/22/22 19:41 08/22/22 20:06 08/22/22 20:10 Temperature 97.6 F Pulse Rate 88 86 Respiratory Rate 28 H Blood Pressure 141/94 H 140/90 H 140/90 H Pulse Oximetry 100 100 Oxygen Delivery Method Non-Rebreather Mask Non-Rebreather Mask Oxygen Flow Rate 11 08/22/22 20:11 08/22/22 20:19 08/22/22 21:55 Temperature Pulse Rate Respiratory Rate 23 H 20 22 H Blood Pressure 100/56 L Pulse Oximetry 94 Oxygen Delivery Method Room Air Oxygen Flow Rate 08/22/22 23:53 Temperature 97.6 F Pulse Rate 50 Respiratory Rate 18 Blood Pressure 115/62 Pulse Oximetry 100 Oxygen Delivery Method Nasal Cannula Oxygen Flow Rate 3 BMI result Body Mass Index 26.2 vss Appearance: Patient awake, moving all extremities, not answering questions, not oriented to person, place time or situation. Diaphoretic, and moderate to severe respiratory distress. Head: Normocephalic, atraumatic, no step-offs or deformities Eyes: Pupils equal, round and reactive to light.? ENT: Pharynx normal.? Neck: Normal inspection.? Neck supple.? CVS: Normal heart rate and rhythm.? Pulses normal.? Respiratory: Moderate to severe respiratory distress.? Breath sounds with crackles bilaterally..? Abdomen: Soft and nontender.? Skin: Skin warm and diaphoretic.? Normal skin color.? Normal skin turgor.? Extremities: No lower extremity edema.? No calf ttp. 5/5 strength to bilateral upper and lower extremities Neuro: Patient awake, moving all extremities, not answering questions, not oriented to person, place time or situation. Course Reevaluation(s) Reevaluation #1: CBC appears to be around patient's baseline. Chemistry with potassium of 5.2, lactic acid of 2.5 likely secondary to poor p.o. intake dehydration on likely from infection. Patient's initial troponin 28, EKG nonischemic unlikely ACS. Patient's BNP 1973 concerning for acute CHF. Patient on BiPAP and was given Lasix when he arrived as well as nitro. Time: 21:22 Reevaluation #2: Blood gas with mixed acidosis, respiratory and metabolic. At this time all trial patient off of BiPAP and obtain an new gas. Patient's lactic acid elevated 2.5 likely secondary to poor p.o. intake dehydration I do not suspect it is from severe sepsis or sepsis. Time: 23:15 Reevaluation #3: After patient got taking a from BiPAP pCO2 increasing, suggested BiPAP patient adamantly refusing Time: 01:03 Medications Administered Generic Name Dose Route Start Last Admin Trade Name Freq PRN Reason Stop Dose Admin Amiodarone HCl 200 mg 08/24/22 09:00 08/24/22 11:14 Amiodarone Hcl 200 Mg Tablet PO 200 mg DAILY DAVID Administration Divalproex Sodium 1,000 mg 08/24/22 09:00 08/24/22 11:14 Divalproex Sodium Er 500 Mg Tab.Er.24h PO 1,000 mg DAILY DAVID Administration Furosemide 40 mg 08/23/22 09:00 08/24/22 19:06 Furosemide 40 Mg/4 Ml Vial IVPUSH 40 mg BID@0900,1800 DAVID Administration Protocol Heparin Sodium (Porcine) 5,000 unit 08/23/22 06:00 08/24/22 22:10 Heparin Sodium,Porcine 5,000 Unit/Ml Vial SUBCUT 5,000 unit Q8H DAVID Administration Discontinued Medications Generic Name Dose Route Start Last Admin Trade Name Freq PRN Reason Stop Dose Admin Fentanyl 25 mcg 08/23/22 18:22 08/23/22 18:41 Fentanyl Citrate/Pf 100 Mcg/2 Ml Vial IVPUSH 08/23/22 18:23 25 mcg ONCE ONE Administration Protocol Furosemide 40 mg 08/22/22 19:52 08/22/22 19:58 Furosemide 40 Mg/4 Ml Vial IVPUSH 08/22/22 19:53 40 mg ONCE ONE Administration Protocol Furosemide 20 mg 08/23/22 05:19 08/23/22 04:50 Furosemide 20 Mg/2 Ml Vial IVPUSH 08/23/22 05:20 20 mg ONCE ONE Administration Protocol Glucagon 1 mg 08/23/22 05:19 08/23/22 05:45 Glucagon,Human Recombinant 1 Mg/Ml Vial IVPUSH 08/23/22 05:20 1 mg ONCE ONE Administration Dopamine HCl/Dextrose 400 mg in 250 mls @ 0 mls/hr 08/23/22 05:30 08/23/22 16:28 Dopamine Hcl/D5w IVCONT Infused .Q0M [facility] Titration Protocol Per Protocol Valproic Acid 1,612 mg/ Sodium 116.12 mls @ 100 mls/hr 08/23/22 05:36 08/23/22 07:49 Chloride IV 08/23/22 06:45 Not Given ONCE ONE Valproic Acid 1,500 mg/ Sodium 115 mls @ 100 mls/hr 08/23/22 06:15 08/23/22 07:57 Chloride IV 08/23/22 07:23 Infused ONCE ONE Infusion Amiodarone HCl 900 mg/ Sodium 518 mls @ 34.533 mls/hr 08/23/22 10:45 08/23/22 16:28 Chloride IVCONT Infused .Q15H1M [facility] Infusion Protocol 1 MG/MIN Iohexol 100 ml 08/22/22 21:24 08/22/22 21:25 Iohexol 350 Mg/Ml 100 Ml Infus..Btl IV 08/22/22 21:25 65 ml ONCE ONE Administration Morphine Sulfate 2 mg 08/22/22 20:09 08/22/22 20:11 Morphine Sulfate 2 Mg/Ml Cartridge IVPUSH 08/22/22 20:10 2 mg ONCE ONE Administration Protocol Nitroglycerin 1 inch 08/22/22 20:09 08/22/22 20:10 Nitroglycerin 2 % Oint 1 Gm Packet TRANSDERMA 08/22/22 20:10 1 inch ONCE ONE Administration Pantoprazole Sodium 40 mg 08/23/22 06:30 08/23/22 08:04 Pantoprazole Sodium 40 Mg/10 Ml Vial IVPUSH 40 mg DAILY@0630 [facility] Administration Medical Decision Making Medical Decision Making MDM Narrative: 1999 76-year-old male presents with shortness of breath and chest pain from [facility] arrives on a non-rebreather in moderate to severe respiratory distress. On exam patient is not well-appearing, diaphoretic, nonverbal, moving all extremities, awake, crackles throughout, regular rate and rhythm, abdomen soft nontender nondistended. Patient was noted to be hypoxic and placed on a non- rebreather. Concerns for CHF versus chronic lung disease versus aspiration pneumonia. Unlikely that this is pulmonary embolism, dissection. Will rule out ACS, cardiogenic shock Plan- labs, urine, imaging. Differential Diagnosis Differential Diagnoses: The differential diagnosis associated with the presentation includes Concerns for CHF versus chronic lung disease versus aspiration pneumonia. Unlikely that this is pulmonary embolism, dissection. Will rule out ACS Admission/Observation Consideration of admission/observation: Escalation of care including admission/observation considered Lab Data MDM Lab Attestation statement: I reviewed the patient's lab results. 08/22/22 19:46 08/22/22 19:46 Labs: Lab Results 08/22/22 08/22/22 08/22/22 Range/Units 19:33 19:46 19:46 WBC 8.4 (4.8-10.8) X10*3/uL RBC 5.36 D (4.60-5.80) X10*6/uL Hgb 16.3 D (14.0-18.0) g/dl Hct 50.2 (42.0-52.0) % MCV 93.7 (80.0-98.0) fL MCH 30.4 (27.0-33.0) pg MCHC 32.5 (31.0-36.0) g/dl RDW 14.3 (11.0-16.0) % Plt Count 289 D (160-400) X10*3/uL MPV 9.7 (9.4-12.4) fL Immature Gran % (Auto) 0.4 (0.0-0.4) % Neut % (Auto) 75.5 H (45-73) % Lymph % (Auto) 17.1 L (20-40) % [place] % (Auto) 5.6 (2-11) % Eos % (Auto) 1.2 (0-4) % Baso % (Auto) 0.2 (0-2) % Lymph # (Auto) 1.4 (1.2-4.9) X10*3/uL [place] # (Auto) 0.5 (0.1-1.2) X10*3/uL Eos # (Auto) 0.1 (0.0-0.4) X10*3/uL Baso # (Auto) 0.0 (0.0-0.2) X10*3/uL Abs Immat Gran (auto) 0.03 (0.00-0.03) X10*3/uL Absolute Neuts (auto) 6.3 (2.0-8.3) x10*3/uL Absolute Nucleated RBC 0.000 (0.0-0.012) X10*3/uL Nucleated RBC % (auto) 0.0 (0.0-0.2) /100WBC PT (10.0-13.1) SEC INR (0.9-1.1) D-Dimer High Sensitivty NG/ML O2 Saturation % ABG pH at Pt Temp (7.35-7.45) ABG pCO2 at Pt Temp (32-45) mmHg ABG pO2 at Pt Temp (83-108) mmHg ABG HCO3 (22-26) mmol/L ABG Base Excess (Actual) mmol/L VBG pH (7.32-7.43) VBG pCO2 mmHg VBG pO2 mmHg VBG HCO3 (22-26) mmol/L VBG O2 Saturation % VBG Base Excess mmol/L Sodium 137 (135-145) mmol/L Potassium 5.2 H (3.3-5.1) mmol/L Chloride 96 (96-108) mmol/L Carbon Dioxide 27 (22-29) mmol/L Anion Gap 19 (12-20) BUN 14 (9-16) mg/dL Creatinine 0.97 (0.5-1.4) mg/dL Estim Creat Clear Calc 64.7 Estimated GFR > 60 POC Glucose (60-115) mg/dL Random Glucose 260 H (60-115) mg/dL Lactic Acid (0.5-2.0) mmol/L Lactic Acid F/U @ 2Hr (0.5-2.0) mmol/L Calcium 9.3 D (8.4-10.2) mg/dL Phosphorus (2.7-4.5) mg/dL Magnesium 2.2 (1.6-2.6) mg/dL Total Bilirubin 0.7 (0.0-1.0) mg/dL AST 24 (5-37) U/L ALT 51 H (0-40) U/L Alkaline Phosphatase 79 (39-117) U/L Ammonia (13-55) umol/L Troponin I High Sens (<3.5-35.0) ng/L B-Natriuretic Peptide 1973 H (<100) pg/mL Total Protein 7.6 (6.5-8.0) g/dL Albumin 4.2 (3.5-5.0) g/dL Valproic Acid (50.0-100.0) mcg/mL COVID-19 ([facility]) (Negative) COVID-19 Clin Com 08/22/22 08/22/22 08/22/22 Range/Units 19:46 19:46 19:46 WBC (4.8-10.8) X10*3/uL RBC (4.60-5.80) X10*6/uL Hgb (14.0-18.0) g/dl Hct (42.0-52.0) % MCV (80.0-98.0) fL MCH (27.0-33.0) pg MCHC (31.0-36.0) g/dl RDW (11.0-16.0) % Plt Count (160-400) X10*3/uL MPV (9.4-12.4) fL Immature Gran % (Auto) (0.0-0.4) % Neut % (Auto) (45-73) % Lymph % (Auto) (20-40) % [place] % (Auto) (2-11) % Eos % (Auto) (0-4) % Baso % (Auto) (0-2) % Lymph # (Auto) (1.2-4.9) X10*3/uL [place] # (Auto) (0.1-1.2) X10*3/uL Eos # (Auto) (0.0-0.4) X10*3/uL Baso # (Auto) (0.0-0.2) X10*3/uL Abs Immat Gran (auto) (0.00-0.03) X10*3/uL Absolute Neuts (auto) (2.0-8.3) x10*3/uL Absolute Nucleated RBC (0.0-0.012) X10*3/uL Nucleated RBC % (auto) (0.0-0.2) /100WBC PT 12.5 (10.0-13.1) SEC INR 1.1 (0.9-1.1) D-Dimer High Sensitivty 626 NG/ML O2 Saturation % ABG pH at Pt Temp (7.35-7.45) ABG pCO2 at Pt Temp (32-45) mmHg ABG pO2 at Pt Temp (83-108) mmHg ABG HCO3 (22-26) mmol/L ABG Base Excess (Actual) mmol/L VBG pH (7.32-7.43) VBG pCO2 mmHg VBG pO2 mmHg VBG HCO3 (22-26) mmol/L VBG O2 Saturation % VBG Base Excess mmol/L Sodium (135-145) mmol/L Potassium (3.3-5.1) mmol/L Chloride (96-108) mmol/L Carbon Dioxide (22-29) mmol/L Anion Gap (12-20) BUN (9-16) mg/dL Creatinine (0.5-1.4) mg/dL Estim Creat Clear Calc Estimated GFR POC Glucose (60-115) mg/dL Random Glucose (60-115) mg/dL Lactic Acid 2.5 H* (0.5-2.0) mmol/L Lactic Acid F/U @ 2Hr (0.5-2.0) mmol/L Calcium (8.4-10.2) mg/dL Phosphorus (2.7-4.5) mg/dL Magnesium (1.6-2.6) mg/dL Total Bilirubin (0.0-1.0) mg/dL AST (5-37) U/L ALT (0-40) U/L Alkaline Phosphatase (39-117) U/L Ammonia (13-55) umol/L Troponin I High Sens 28.0 D (<3.5-35.0) ng/L B-Natriuretic Peptide (<100) pg/mL Total Protein (6.5-8.0) g/dL Albumin (3.5-5.0) g/dL Valproic Acid (50.0-100.0) mcg/mL COVID-19 ([facility]) (Negative) COVID-19 Clin Com 08/22/22 08/22/22 08/22/22 Range/Units 19:46 19:48 19:58 WBC (4.8-10.8) X10*3/uL RBC (4.60-5.80) X10*6/uL Hgb (14.0-18.0) g/dl Hct (42.0-52.0) % MCV (80.0-98.0) fL MCH (27.0-33.0) pg MCHC (31.0-36.0) g/dl RDW (11.0-16.0) % Plt Count (160-400) X10*3/uL MPV (9.4-12.4) fL Immature Gran % (Auto) (0.0-0.4) % Neut % (Auto) (45-73) % Lymph % (Auto) (20-40) % [place] % (Auto) (2-11) % Eos % (Auto) (0-4) % Baso % (Auto) (0-2) % Lymph # (Auto) (1.2-4.9) X10*3/uL [place] # (Auto) (0.1-1.2) X10*3/uL Eos # (Auto) (0.0-0.4) X10*3/uL Baso # (Auto) (0.0-0.2) X10*3/uL Abs Immat Gran (auto) (0.00-0.03) X10*3/uL Absolute Neuts (auto) (2.0-8.3) x10*3/uL Absolute Nucleated RBC (0.0-0.012) X10*3/uL Nucleated RBC % (auto) (0.0-0.2) /100WBC PT (10.0-13.1) SEC INR (0.9-1.1) D-Dimer High Sensitivty NG/ML O2 Saturation 99.0 % ABG pH at Pt Temp 7.25 L (7.35-7.45) ABG pCO2 at Pt Temp 75 H* (32-45) mmHg ABG pO2 at Pt Temp 215 H (83-108) mmHg ABG HCO3 33 H (22-26) mmol/L ABG Base Excess (Actual) 2.9 mmol/L VBG pH (7.32-7.43) VBG pCO2 mmHg VBG pO2 mmHg VBG HCO3 (22-26) mmol/L VBG O2 Saturation % VBG Base Excess mmol/L Sodium (135-145) mmol/L Potassium (3.3-5.1) mmol/L Chloride (96-108) mmol/L Carbon Dioxide (22-29) mmol/L Anion Gap (12-20) BUN (9-16) mg/dL Creatinine (0.5-1.4) mg/dL Estim Creat Clear Calc Estimated GFR POC Glucose 226 H (60-115) mg/dL Random Glucose (60-115) mg/dL Lactic Acid (0.5-2.0) mmol/L Lactic Acid F/U @ 2Hr (0.5-2.0) mmol/L Calcium (8.4-10.2) mg/dL Phosphorus (2.7-4.5) mg/dL Magnesium (1.6-2.6) mg/dL Total Bilirubin (0.0-1.0) mg/dL AST (5-37) U/L ALT (0-40) U/L Alkaline Phosphatase (39-117) U/L Ammonia (13-55) umol/L Troponin I High Sens (<3.5-35.0) ng/L B-Natriuretic Peptide (<100) pg/mL Total Protein (6.5-8.0) g/dL Albumin (3.5-5.0) g/dL Valproic Acid (50.0-100.0) mcg/mL COVID-19 ([facility]) Negative (Negative) COVID-19 Clin Com See Note 08/22/22 08/22/22 08/22/22 Range/Units 20:00 23:23 23:24 WBC (4.8-10.8) X10*3/uL RBC (4.60-5.80) X10*6/uL Hgb (14.0-18.0) g/dl Hct (42.0-52.0) % MCV (80.0-98.0) fL MCH (27.0-33.0) pg MCHC (31.0-36.0) g/dl RDW (11.0-16.0) % Plt Count (160-400) X10*3/uL MPV (9.4-12.4) fL Immature Gran % (Auto) (0.0-0.4) % Neut % (Auto) (45-73) % Lymph % (Auto) (20-40) % [place] % (Auto) (2-11) % Eos % (Auto) (0-4) % Baso % (Auto) (0-2) % Lymph # (Auto) (1.2-4.9) X10*3/uL [place] # (Auto) (0.1-1.2) X10*3/uL Eos # (Auto) (0.0-0.4) X10*3/uL Baso # (Auto) (0.0-0.2) X10*3/uL Abs Immat Gran (auto) (0.00-0.03) X10*3/uL Absolute Neuts (auto) (2.0-8.3) x10*3/uL Absolute Nucleated RBC (0.0-0.012) X10*3/uL Nucleated RBC % (auto) (0.0-0.2) /100WBC PT (10.0-13.1) SEC INR (0.9-1.1) D-Dimer High Sensitivty NG/ML O2 Saturation 93.0 % ABG pH at Pt Temp 7.36 (7.35-7.45) ABG pCO2 at Pt Temp 64 H* (32-45) mmHg ABG pO2 at Pt Temp 78 L (83-108) mmHg ABG HCO3 37 H (22-26) mmol/L ABG Base Excess (Actual) 9.2 mmol/L VBG pH 7.28 L (7.32-7.43) VBG pCO2 76 mmHg VBG pO2 83 mmHg VBG HCO3 36 H (22-26) mmol/L VBG O2 Saturation 95.0 % VBG Base Excess 6.1 mmol/L Sodium (135-145) mmol/L Potassium (3.3-5.1) mmol/L Chloride (96-108) mmol/L Carbon Dioxide (22-29) mmol/L Anion Gap (12-20) BUN (9-16) mg/dL Creatinine (0.5-1.4) mg/dL Estim Creat Clear Calc Estimated GFR POC Glucose (60-115) mg/dL Random Glucose (60-115) mg/dL Lactic Acid (0.5-2.0) mmol/L Lactic Acid F/U @ 2Hr (0.5-2.0) mmol/L Calcium (8.4-10.2) mg/dL Phosphorus (2.7-4.5) mg/dL Magnesium (1.6-2.6) mg/dL Total Bilirubin (0.0-1.0) mg/dL AST (5-37) U/L ALT (0-40) U/L Alkaline Phosphatase (39-117) U/L Ammonia (13-55) umol/L Troponin I High Sens 63.8 H D (<3.5-35.0) ng/L B-Natriuretic Peptide (<100) pg/mL Total Protein (6.5-8.0) g/dL Albumin (3.5-5.0) g/dL Valproic Acid (50.0-100.0) mcg/mL COVID-19 ([facility]) (Negative) COVID-19 Clin Com 08/22/22 08/22/22 08/23/22 Range/Units 23:24 23:57 00:37 WBC (4.8-10.8) X10*3/uL RBC (4.60-5.80) X10*6/uL Hgb (14.0-18.0) g/dl Hct (42.0-52.0) % MCV (80.0-98.0) fL MCH (27.0-33.0) pg MCHC (31.0-36.0) g/dl RDW (11.0-16.0) % Plt Count (160-400) X10*3/uL MPV (9.4-12.4) fL Immature Gran % (Auto) (0.0-0.4) % Neut % (Auto) (45-73) % Lymph % (Auto) (20-40) % [place] % (Auto) (2-11) % Eos % (Auto) (0-4) % Baso % (Auto) (0-2) % Lymph # (Auto) (1.2-4.9) X10*3/uL [place] # (Auto) (0.1-1.2) X10*3/uL Eos # (Auto) (0.0-0.4) X10*3/uL Baso # (Auto) (0.0-0.2) X10*3/uL Abs Immat Gran (auto) (0.00-0.03) X10*3/uL Absolute Neuts (auto) (2.0-8.3) x10*3/uL Absolute Nucleated RBC (0.0-0.012) X10*3/uL Nucleated RBC % (auto) (0.0-0.2) /100WBC PT (10.0-13.1) SEC INR (0.9-1.1) D-Dimer High Sensitivty NG/ML O2 Saturation 97.0 % ABG pH at Pt Temp 7.33 L (7.35-7.45) ABG pCO2 at Pt Temp 72 H* (32-45) mmHg ABG pO2 at Pt Temp 96 (83-108) mmHg ABG HCO3 39 H (22-26) mmol/L ABG Base Excess (Actual) 10.0 mmol/L VBG pH (7.32-7.43) VBG pCO2 mmHg VBG pO2 mmHg VBG HCO3 (22-26) mmol/L VBG O2 Saturation % VBG Base Excess mmol/L Sodium (135-145) mmol/L Potassium (3.3-5.1) mmol/L Chloride (96-108) mmol/L Carbon Dioxide (22-29) mmol/L Anion Gap (12-20) BUN (9-16) mg/dL Creatinine (0.5-1.4) mg/dL Estim Creat Clear Calc Estimated GFR POC Glucose (60-115) mg/dL Random Glucose (60-115) mg/dL Lactic Acid (0.5-2.0) mmol/L Lactic Acid F/U @ 2Hr 1.2 (0.5-2.0) mmol/L Calcium (8.4-10.2) mg/dL Phosphorus (2.7-4.5) mg/dL Magnesium (1.6-2.6) mg/dL Total Bilirubin (0.0-1.0) mg/dL AST (5-37) U/L ALT (0-40) U/L Alkaline Phosphatase (39-117) U/L Ammonia (13-55) umol/L Troponin I High Sens (<3.5-35.0) ng/L B-Natriuretic Peptide 2534 H (<100) pg/mL Total Protein (6.5-8.0) g/dL Albumin (3.5-5.0) g/dL Valproic Acid (50.0-100.0) mcg/mL COVID-19 ([facility]) (Negative) COVID-19 Clin Com 08/23/22 08/23/22 08/23/22 Range/Units 03:21 04:44 04:44 WBC (4.8-10.8) X10*3/uL RBC (4.60-5.80) X10*6/uL Hgb (14.0-18.0) g/dl Hct (42.0-52.0) % MCV (80.0-98.0) fL MCH (27.0-33.0) pg MCHC (31.0-36.0) g/dl RDW (11.0-16.0) % Plt Count (160-400) X10*3/uL MPV (9.4-12.4) fL Immature Gran % (Auto) (0.0-0.4) % Neut % (Auto) (45-73) % Lymph % (Auto) (20-40) % [place] % (Auto) (2-11) % Eos % (Auto) (0-4) % Baso % (Auto) (0-2) % Lymph # (Auto) (1.2-4.9) X10*3/uL [place] # (Auto) (0.1-1.2) X10*3/uL Eos # (Auto) (0.0-0.4) X10*3/uL Baso # (Auto) (0.0-0.2) X10*3/uL Abs Immat Gran (auto) (0.00-0.03) X10*3/uL Absolute Neuts (auto) (2.0-8.3) x10*3/uL Absolute Nucleated RBC (0.0-0.012) X10*3/uL Nucleated RBC % (auto) (0.0-0.2) /100WBC PT (10.0-13.1) SEC INR (0.9-1.1) D-Dimer High Sensitivty NG/ML O2 Saturation % ABG pH at Pt Temp (7.35-7.45) ABG pCO2 at Pt Temp (32-45) mmHg ABG pO2 at Pt Temp (83-108) mmHg ABG HCO3 (22-26) mmol/L ABG Base Excess (Actual) mmol/L VBG pH (7.32-7.43) VBG pCO2 mmHg VBG pO2 mmHg VBG HCO3 (22-26) mmol/L VBG O2 Saturation % VBG Base Excess mmol/L Sodium 140 (135-145) mmol/L Potassium 4.7 (3.3-5.1) mmol/L Chloride 98 (96-108) mmol/L Carbon Dioxide 29 (22-29) mmol/L Anion Gap 18 (12-20) BUN 14 (9-16) mg/dL Creatinine 0.76 (0.5-1.4) mg/dL Estim Creat Clear Calc 82.6 Estimated GFR > 60 POC Glucose 76 (60-115) mg/dL Random Glucose 98 (60-115) mg/dL Lactic Acid (0.5-2.0) mmol/L Lactic Acid F/U @ 2Hr (0.5-2.0) mmol/L Calcium 8.8 (8.4-10.2) mg/dL Phosphorus 4.6 H (2.7-4.5) mg/dL Magnesium 2.3 (1.6-2.6) mg/dL Total Bilirubin 0.5 (0.0-1.0) mg/dL AST 17 (5-37) U/L ALT 39 (0-40) U/L Alkaline Phosphatase 64 (39-117) U/L Ammonia (13-55) umol/L Troponin I High Sens (<3.5-35.0) ng/L B-Natriuretic Peptide (<100) pg/mL Total Protein 6.3 L (6.5-8.0) g/dL Albumin 3.5 (3.5-5.0) g/dL Valproic Acid 47.7 L (50.0-100.0) mcg/mL COVID-19 ([facility]) (Negative) COVID-19 Clin Com 08/23/22 08/23/22 08/23/22 Range/Units 04:44 04:44 04:44 WBC (4.8-10.8) X10*3/uL RBC (4.60-5.80) X10*6/uL Hgb (14.0-18.0) g/dl Hct (42.0-52.0) % MCV (80.0-98.0) fL MCH (27.0-33.0) pg MCHC (31.0-36.0) g/dl RDW (11.0-16.0) % Plt Count (160-400) X10*3/uL MPV (9.4-12.4) fL Immature Gran % (Auto) (0.0-0.4) % Neut % (Auto) (45-73) % Lymph % (Auto) (20-40) % [place] % (Auto) (2-11) % Eos % (Auto) (0-4) % Baso % (Auto) (0-2) % Lymph # (Auto) (1.2-4.9) X10*3/uL [place] # (Auto) (0.1-1.2) X10*3/uL Eos # (Auto) (0.0-0.4) X10*3/uL Baso # (Auto) (0.0-0.2) X10*3/uL Abs Immat Gran (auto) (0.00-0.03) X10*3/uL Absolute Neuts (auto) (2.0-8.3) x10*3/uL Absolute Nucleated RBC (0.0-0.012) X10*3/uL Nucleated RBC % (auto) (0.0-0.2) /100WBC PT (10.0-13.1) SEC INR (0.9-1.1) D-Dimer High Sensitivty NG/ML O2 Saturation % ABG pH at Pt Temp (7.35-7.45) ABG pCO2 at Pt Temp (32-45) mmHg ABG pO2 at Pt Temp (83-108) mmHg ABG HCO3 (22-26) mmol/L ABG Base Excess (Actual) mmol/L VBG pH (7.32-7.43) VBG pCO2 mmHg VBG pO2 mmHg VBG HCO3 (22-26) mmol/L VBG O2 Saturation % VBG Base Excess mmol/L Sodium (135-145) mmol/L Potassium (3.3-5.1) mmol/L Chloride (96-108) mmol/L Carbon Dioxide (22-29) mmol/L Anion Gap (12-20) BUN (9-16) mg/dL Creatinine (0.5-1.4) mg/dL Estim Creat Clear Calc Estimated GFR POC Glucose (60-115) mg/dL Random Glucose (60-115) mg/dL Lactic Acid 0.6 (0.5-2.0) mmol/L Lactic Acid F/U @ 2Hr (0.5-2.0) mmol/L Calcium (8.4-10.2) mg/dL Phosphorus (2.7-4.5) mg/dL Magnesium (1.6-2.6) mg/dL Total Bilirubin (0.0-1.0) mg/dL AST (5-37) U/L ALT (0-40) U/L Alkaline Phosphatase (39-117) U/L Ammonia 38 (13-55) umol/L Troponin I High Sens 51.0 H (<3.5-35.0) ng/L B-Natriuretic Peptide (<100) pg/mL Total Protein (6.5-8.0) g/dL Albumin (3.5-5.0) g/dL Valproic Acid (50.0-100.0) mcg/mL COVID-19 ([facility]) (Negative) COVID-19 Clin Com 08/23/22 08/23/22 08/23/22 Range/Units 04:44 04:47 04:59 WBC 10.7 (4.8-10.8) X10*3/uL RBC 5.02 (4.60-5.80) X10*6/uL Hgb 15.2 (14.0-18.0) g/dl Hct 46.5 (42.0-52.0) % MCV 92.6 (80.0-98.0) fL MCH 30.3 (27.0-33.0) pg MCHC 32.7 (31.0-36.0) g/dl RDW 14.4 (11.0-16.0) % Plt Count 209 D (160-400) X10*3/uL MPV 9.4 (9.4-12.4) fL Immature Gran % (Auto) 0.5 H (0.0-0.4) % Neut % (Auto) 82.3 H (45-73) % Lymph % (Auto) 9.0 L (20-40) % [place] % (Auto) 7.8 (2-11) % Eos % (Auto) 0.3 (0-4) % Baso % (Auto) 0.1 (0-2) % Lymph # (Auto) 1.0 L (1.2-4.9) X10*3/uL [place] # (Auto) 0.8 (0.1-1.2) X10*3/uL Eos # (Auto) 0.0 (0.0-0.4) X10*3/uL Baso # (Auto) 0.0 (0.0-0.2) X10*3/uL Abs Immat Gran (auto) 0.05 H (0.00-0.03) X10*3/uL Absolute Neuts (auto) 8.8 H (2.0-8.3) x10*3/uL Absolute Nucleated RBC 0.000 (0.0-0.012) X10*3/uL Nucleated RBC % (auto) 0.0 (0.0-0.2) /100WBC PT (10.0-13.1) SEC INR (0.9-1.1) D-Dimer High Sensitivty NG/ML O2 Saturation % ABG pH at Pt Temp (7.35-7.45) ABG pCO2 at Pt Temp (32-45) mmHg ABG pO2 at Pt Temp (83-108) mmHg ABG HCO3 (22-26) mmol/L ABG Base Excess (Actual) mmol/L VBG pH 7.36 Cancelled (7.32-7.43) VBG pCO2 67 Cancelled mmHg VBG pO2 52 Cancelled mmHg VBG HCO3 38 H Cancelled (22-26) mmol/L VBG O2 Saturation 77.0 Cancelled % VBG Base Excess 9.4 Cancelled mmol/L Sodium (135-145) mmol/L Potassium (3.3-5.1) mmol/L Chloride (96-108) mmol/L Carbon Dioxide (22-29) mmol/L Anion Gap (12-20) BUN (9-16) mg/dL Creatinine (0.5-1.4) mg/dL Estim Creat Clear Calc Estimated GFR POC Glucose (60-115) mg/dL Random Glucose (60-115) mg/dL Lactic Acid (0.5-2.0) mmol/L Lactic Acid F/U @ 2Hr (0.5-2.0) mmol/L Calcium (8.4-10.2) mg/dL Phosphorus (2.7-4.5) mg/dL Magnesium (1.6-2.6) mg/dL Total Bilirubin (0.0-1.0) mg/dL AST (5-37) U/L ALT (0-40) U/L Alkaline Phosphatase (39-117) U/L Ammonia (13-55) umol/L Troponin I High Sens (<3.5-35.0) ng/L B-Natriuretic Peptide (<100) pg/mL Total Protein (6.5-8.0) g/dL Albumin (3.5-5.0) g/dL Valproic Acid (50.0-100.0) mcg/mL COVID-19 ([facility]) (Negative) COVID-19 Clin Com ABG Data Attestation ABG: I personally reviewed and interpreted this ABG as follows: Interpretation: Mixed acidosis,primary repiratory Independent Interpretation I performed an independent interpretation of an: Plain X-Ray Radiology Impression Discussion of test interpretation with radiology: I have reviewed the radiologist's reading. Core Measures AMI core measures followed: Yes Measure exclusions: not indicated Critical Care Time Critical Care Time Critical Care Time: Yes Total Critical Care Time: 50 Attestation: I attest to this time spent taking care of the patient, obtaining history, physical, reviewing labs, imaging, speaking to my attending, speaking to specialist. Discharge Plan Discharge Clinical Impression: CHF (congestive heart failure) Patient Disposition: Admitted As Inpatient Interventions: Admission Worksheet (ED) Last Done: 08/23/22 04:30 Discharge Date/Time: 08/23/22 03:00
[2022-08-22 19:52] LABS: Glucose, Whole Blood 226 mg/dL (60-115)
--- NOTE | 2022-08-22 19:54 | PC.NURSE ---
per EMS pt was given 324 aspirin en route
[2022-08-22] MEDS: Furosemide 40 MG/4 ML VIAL IVPUSH (19:58)
[2022-08-22 20:02] LABS: MANUAL DIFF FLAG NO
[2022-08-22 20:04] LABS: Basophils Percent Auto 0.2 % (0-2); Eosinophils Absolute Auto 0.1 X10*3/uL (0.0-0.4); Eosinophils Percent Auto 1.2 % (0-4); Hematocrit 50.2 % (42.0-52.0); Hemoglobin 16.3 g/dl (14.0-18.0); Imm Gran Abs Auto 0.03 X10*3/uL (0.00-0.03); Imm Gran Pct Auto 0.4 % (0.0-0.4); Lymphocytes Absolute Auto 1.4 X10*3/uL (1.2-4.9); Lymphocytes Percent Auto 17.1 % (20-40); Mean Corpuscular HGB Conc 32.5 g/dl (31.0-36.0); Mean Corpuscular Hemoglobin 30.4 pg (27.0-33.0); Mean Corpuscular Volume 93.7 fL (80.0-98.0); Mean Platelet Volume 9.7 fL (9.4-12.4); Monocytes Absolute Auto 0.5 X10*3/uL (0.1-1.2); Monocytes Percent Auto 5.6 % (2-11); Neutrophils Absolute Auto 6.3 x10*3/uL (2.0-8.3); Neutrophils Percent Auto 75.5 % (45-73); Platelet Count 289 X10*3/uL (160-400); Red Blood Count 5.36 X10*6/uL (4.60-5.80); Red Cell Distribution Width 14.3 % (11.0-16.0); White Blood Count 8.4 X10*3/uL (4.8-10.8)
[2022-08-22 20:07] LABS: ABG Base Excess 2.9 mmol/L; ABG HCO3 33 mmol/L (22-26); ABG pCO2 75 mmHg (32-45); ABG pH 7.25 (7.35-7.45); ABG pO2 215 mmHg (83-108)
--- NOTE | 2022-08-22 20:07 | PC.NURSE ---
2 IV lines established Left AC, and right wrist. Labs drawn. Patient medicated per MAY. Vitals stable at this time. Will continue to follow plan of care.
[2022-08-22 20:08] LABS: INTERNATIONAL NORM RATIO 1.1 (0.9-1.1); Prothrombin Time 12.5 SEC (10.0-13.1)
[2022-08-22 20:10] LABS: D Dimer High Sensitivity 626 NG/ML
[2022-08-22] MEDS: Nitroglycerin 2 % Oint 1 GM Packet 1 INCH TRANSDERMA (20:10)
[2022-08-22] MEDS: Morphine Sulfate 2 MG/ML CARTRIDGE IVPUSH (20:11)
--- NOTE | 2022-08-22 20:13 | PC.NURSE ---
RT at bedside, BIPAP applied with settings: 14/, 60%.
[2022-08-22 20:15] LABS: VBG Base Excess 6.1 mmol/L; VBG HCO3 36 mmol/L (22-26); VBG pCO2 76 mmHg; VBG pH 7.28 (7.32-7.43); VBG pO2 83 mmHg
[2022-08-22 20:16] LABS: Venous Blood Gas Refer to POC result
[2022-08-22 20:21] LABS: COVID-19 Test Negative (Negative); IDNOW Serial# 6674DD1D
[2022-08-22 20:23] LABS: Lactic Acid 2.5 mmol/L (0.5-2.0)
[2022-08-22 20:31] LABS: Alanine Aminotransferase 51 U/L (0-40); Albumin Level 4.2 g/dL (3.5-5.0); Alkaline Phosphatase 79 U/L (39-117); Anion Gap 19 (12-20); Aspartate Amino Transferase 24 U/L (5-37); Bilirubin Total 0.7 mg/dL (0.0-1.0); Blood Urea Nitrogen 14 mg/dL (9-16); Calcium 9.3 mg/dL (8.4-10.2); Carbon Dioxide 27 mmol/L (22-29); Chloride 96 mmol/L (96-108); Creatinine Clr Calc Pharmacy 64.7; Estimated Glomerular Filt Rate > 60; Glucose Random 260 mg/dL (60-115); Magnesium 2.2 mg/dL (1.6-2.6); Potassium 5.2 mmol/L (3.3-5.1); Sodium 137 mmol/L (135-145); Total Protein 7.6 g/dL (6.5-8.0)
[2022-08-22 21:18] LABS: B Type Natriuretic Peptide 1973 pg/mL (<100)
[2022-08-22] MEDS: iohexoL 350 MG/ML 100 ML INFUS..BTL IV (21:25)
[2022-08-22 22:00] LABS: Reflex Lactate? Lactic Acid Added
--- NOTE | 2022-08-22 22:00 | PC.NURSE ---
Patient bp soft 100/56, HR 55 [facility] ED provider aware.
--- NOTE | 2022-08-22 23:24 | PC.NURSE ---
Patient removed from bipap for one hour for abg draw. 96% o2 sat on 3L nasal cannula. Will continue to follow plan of care
[2022-08-22 23:33] LABS: ABG Base Excess 9.2 mmol/L; ABG HCO3 37 mmol/L (22-26); ABG pCO2 64 mmHg (32-45); ABG pH 7.36 (7.35-7.45); ABG pO2 78 mmHg (83-108)
--- NOTE | 2022-08-22 23:47 | PC.NURSE ---
Patient is alert at this time. Nonverbal at baseline. No longer diaphoretic. O2 sat 95-07% on 3L nasal cannula. BNP and repeat troponin drawn. Menard catheter draining clear yellow urine. Call moore within reach, patient instruction how to use. Will continue to follow plan of care.
[2022-08-22 23:49] LABS: B Type Natriuretic Peptide 2534 pg/mL (<100)
[2022-08-22 23:51] LABS: Troponin-I High Sensitivity 63.8 ng/L (<3.5-35.0)
[2022-08-23] VITALS (30 sets, daily range): BP systolic 88–131; BP diastolic 37–100; PULSE 49–90; RESP 16–32; TEMP 36.3–36.6; O2SAT 88–100; BMI 26.2; BMI 24.7
[2022-08-23 00:01] LABS: ABG Refer to POC result
[2022-08-23 00:02] LABS: ABG Refer to POC result
[2022-08-23 00:16] LABS: ~Lactic Acid-LAB USE ONLY 1.2 mmol/L (0.5-2.0)
[2022-08-23 00:46] LABS: ABG HCO3 39 mmol/L (22-26); ABG pCO2 72 mmHg (32-45); ABG pH 7.33 (7.35-7.45); ABG pO2 96 mmHg (83-108)
--- NOTE | 2022-08-23 03:43 | ECG_ITS ---
Test Reason : HX NSTMI Blood Pressure : / mmHG Vent. Rate : 050 BPM Atrial Rate : 050 BPM P-R Int : 162 ms QRS Dur : 116 ms QT Int : 576 ms P-R-T Axes : 035 -77 270 degrees QTc Int : 525 ms Sinus bradycardia Left axis deviation Incomplete right bundle branch block ST & T wave abnormality, consider inferior ischemia ST & T wave abnormality, consider anterolateral ischemia Prolonged QT Abnormal ECG No previous ECGs available Referred By: Guillermo Patrick Electronically Signed By:PHILLIP DENNISON
[2022-08-23 04:22] LABS: Glucose, Whole Blood 76 mg/dL (60-115)
[2022-08-23 04:29] LABS: ABG Refer to POC result
[2022-08-23] MEDS: Furosemide 20 MG/2 ML VIAL IVPUSH (04:50)
[2022-08-23 04:57] LABS: VBG Base Excess 9.4 mmol/L; VBG HCO3 38 mmol/L (22-26); VBG pCO2 67 mmHg; VBG pH 7.36 (7.32-7.43); VBG pO2 52 mmHg
[2022-08-23 05:07] LABS: MANUAL DIFF FLAG NO
[2022-08-23 05:11] LABS: Basophils Percent Auto 0.1 % (0-2); Eosinophils Percent Auto 0.3 % (0-4); Hematocrit 46.5 % (42.0-52.0); Hemoglobin 15.2 g/dl (14.0-18.0); Imm Gran Abs Auto 0.05 X10*3/uL (0.00-0.03); Imm Gran Pct Auto 0.5 % (0.0-0.4); Mean Corpuscular HGB Conc 32.7 g/dl (31.0-36.0); Mean Corpuscular Hemoglobin 30.3 pg (27.0-33.0); Mean Corpuscular Volume 92.6 fL (80.0-98.0); Mean Platelet Volume 9.4 fL (9.4-12.4); Monocytes Absolute Auto 0.8 X10*3/uL (0.1-1.2); Monocytes Percent Auto 7.8 % (2-11); Neutrophils Absolute Auto 8.8 x10*3/uL (2.0-8.3); Neutrophils Percent Auto 82.3 % (45-73); Platelet Count 209 X10*3/uL (160-400); Red Blood Count 5.02 X10*6/uL (4.60-5.80); Red Cell Distribution Width 14.4 % (11.0-16.0); White Blood Count 10.7 X10*3/uL (4.8-10.8)
[2022-08-23 05:22] LABS: Venous Blood Gas Refer to POC result
[2022-08-23 05:24] LABS: Ammonia 38 umol/L (13-55)
[2022-08-23 05:25] LABS: Lactic Acid 0.6 mmol/L (0.5-2.0)
--- NOTE | 2022-08-23 05:25 | PM.CCHP ---
History of Present Illness Date of Service: 08/23/22 Attending physician on admission: Herbert Hall Chief Complaint: Hypercarbic respiratory failure /CHF/oxygen poisoning HPI: ?76-year-old patient who is a [facility] resident and reportedly was admitted to these ICU about a week ago Due to V-tach status post cardioversion and amiodarone along with elevated troponins thought to be secondary to myocardial ischemia in the setting of underlying ischemic cardiomyopathy (records not available due to system downtime), per prison report has underlying history of dementia in the setting of alcohol abuse, cardiomegaly, chronic COPD, chronic hepatitis, epilepsy, cardiogenic shock, cervicalgia, coronary disease and ischemic cardiomyopathy with unknown details, generalized muscle ?weakness, prostate cancer, history of COVID, schizophrenia, type 2 diabetes, depression, metabolic encephalopathy, speech impairment, pressure wounds of the left buttock, lumbar stenosis, spondylolisthesis, rotator cuff tear, chronic systolic congestive Heart failure, dysphagia, hypertension, osteoarthritis, unsteady gait, V-tach among multiple other things, had presented to the emergency room as nursing personnel noted that the patient seemed to be out of breath and his O2 sat was 80% room air.? On initial EMS evaluation, the patient was normotensive with blood pressure 117/67, heart rate of 51, temperature 97.1 degrees and satting 98% on room air he had however been noted to be cold, clammy and sweaty with labor and rapid breathing had mentioned some chest tightness. ? Patient was seen in the emergency room, again initially normotensive but eventually became hypotensive in part because he did receive Lasix given the suspicion of fluid overload. ?Initial ABG shows pH of 7.25, pCO2 75, PO2 215 HC03 33 around 20:00 o'clock, the patient had been placed on BiPAP at 14/7 with FiO2 of 60% rate of 12.? O2 sat 100%.? Had been taken off BiPAP and about an hour and a half later he was taken off it, blood gas was repeated and it showed recurrent hypercarbia as he had been placed on a mask; repeat ABG pH 7.36, pCO2 64, PO2 78, HC03 37. they were concerned the patient mental status may be worsening, Ativan and Benadryl has been ordered but they were not administer upon request. ?Chest x-ray showed linear streaky opacities a bibasilar atelectasis without overt consolidation, mild thickening of the airway john or peribronchial interstitium which may represent mild pulmonary edema versus inflammatory thickening of bronchial john.? Given a D-dimer of 626, hypoxia a Chest CT angiogram shows no evidence of pulmonary emboli, bibasilar atelectasis with trace pleural effusions. ?Troponin is 28.? Sodium 137, potassium 5.2, chloride 96, carbon dioxide 27, anion gap 19, BUN 14, creatinine 0.87, GFR more than 60, random glucose 260, calcium 9.3, BNP 1973.? COVID negative. ? During my exam the patient appeared to be verbally arousable, responds to my commands in Bahamian including opening his eyes and grabbing my hand upon request, he does not appear to have any accessory muscle usage, appears to be in mild distress, somewhat somnolent.? Unable to answer questions. ? ? ROS:? Unable to obtain ? Past Medical History:? As above ? Past Surgical History: ?Unknown ? Family history:? Unknown ? Social History:? Patient is a resident of [facility].? His appointed guardian is Bethanie mahoney phone number [phone]. ?Otherwise unknown to me if he was ever a smoker. ? CODE STATUS: FULL CODE ? Allergies: NKDA ? Home Medications: See Med Rec from prison. ? PHYSICAL EXAM: VS: ?98/52, 54, 20, O2 sat 99% on BiPAP 12/10 with 35% FiO2 General:? Somnolent, alert to verbal stimuli, able to follow basic commands on my request but unable to communicate. Skin:? Hyperpigmented skin changes of the bilateral lower extremities right more than left.? Stage I ulcer noted in the sacrococcygeal area of the buttock, otherwise ?Intact, no lesions, edema, erythema, clubbing or cyanosis.? No ulcers. HEENT:? Head is normocephalic, atraumatic, pupils equal round reactive to light accommodation bilaterally.? Extraocular movements appear intact.? Buccal mucosa is moist, Neck is supple without lymphadenopathy. Cardiac:? Bradycardic 52 beats per minute, S3 gallop noted, otherwise no murmurs, rubs.? S1-S2 are clearly noted. Pulmonary:? Diminished lung sounds bilaterally with bibasilar crackles right more than left, no rhonchi, no wheezes. ? Abdomen:? Protuberant, positive bowel sounds in all 4 quadrants.? Soft, nontender, no rebound or guarding.? Musculoskeletal:? Patient barely moves his hands upon request, he was able to customer support agent my hand bilaterally.? Gave me thumbs up with the left hand.? Not able to flex or extend the arms at the elbow or the legs at the knee level upon request.? There is 1+ pitting edema bilaterally up to the tibial plateau, no leg asymmetry, ? Neurologic:? As above, otherwise difficult to assess Vascular:? 2+ pulses upper and lower extremities distally. ? SIGNIFICANT LABORATORY DATA:? As above ? REVIEW OF IMAGES: ?As above ? EKG REVIEW: ?EKG done in the ICU to my view reveals sinus bradycardia 50 beats per minute.? There is no ST elevation, however there is incomplete right bundle branch block along with ST depressions and T-wave inversions of the inferior lateral leads, age-indeterminate changes.? QTC 525.? No comparison. ? ASSESSMENT : 1. High acute on chronic hypoxic/hypercarbic respiratory failure 2. Acute CHF exacerbation likely both systolic and diastolic in nature. 3. Iatrogenic oxygen poisoning 4. Encephalopathy due to hypercarbia 5. Acute Respiratory acidosis with hyper excision a marcus 6. Bradycardia as low as 36 bpm likely in part due to carvedilol intake versus poor cardiac function 7. Stage I sacrococcygeal ulcer 8. Chronic CO2 retainer due to COPD without acute exacerbation 9. Minimal troponin abnormality with age undetermined EKG changes rule out ACS, certainly not STEMI 10. History of seizures with low valproic acid level ? PLAN OF CARE: Patient will be admitted to ICU, I's and O's, vital signs, Menard catheter in place, he appears to be responding to Lasix, however he still sounds and looks fluid overloaded, will administer 20 mg of Lasix IV x 1; his blood pressure is borderline and with the Lasix it is likely to go down which in addition to his low heart rate will need further support likely with dopamine as I do not think his EKG changes are acute ischemia related, will check if he has had an echo recently otherwise 1 will be ordering morning, will order an EKG, repeat troponin.? Repeat lactic acid. Upon reviewing blood gases, I have requested the FiO2 to be lowered with a target O2 sat between 88-90%, this was done in the ER and by the time the patient came to the ICU, his mentation ready appears better.? He was given 1 mg of glucagon IV for his blood sugar was in the low 70s and his heart rate was also low. Will order labs in the morning, keep him NPO, head of the bed at 30 degree angle.? Given the need of further diuresis and my concern that his blood pressure will deteriorate which will cause him to need vasopressors, I will place a central line. Wound care consult requested. ? Clinical update 05:45 am 08/23/2022 Patient is more stable now on dopamine drip at 2.5 milligrams/hour, his blood pressure is above 120 systolic, heart rate is up to 70 beats per minute, respirations 20, O2 sat 92% on BiPAP 14/8 with FiO2 of 30%. ? Review of this patient's echo from August 08 of this year shows severely increased left ventricular cavity with severely decrease left ventricular systolic function estimated ejection fraction of 10%, global hypokinesis and advanced diastolic dysfunction, no valvular abnormalities.? No evidence of pulmonary hypertension. ? Given the above, will continue with dopamine and diuretics. I do not think he needs a drip right now, he responded well to IV push. Cardiac consult may require in the morning. his blood pressure acid level is low, IV to p.o. conversion is one-to-one, this will be ordered IV while he is not able to take p.o. ? GI PROPHYLAXIS: ?IV ppi DVT PROPHYLAXIS: ?Pneumatic stockings and heparin subQ ? Critical care time used for critical evaluation of this patient, diagnosis, treatment and coordination of care, review her records and documentation TOTAL CRITICAL CARE TIME 90?? MIN . discussion and coordination with consultants, completely separate from any procedures performed. Patient's care was discussed in detail with Dr. Hall.? He is aware of all the above as well as the plan of care for this patient. FORMERLY [facility], [facility] Past Medical History Medical History Cervicalgia CHF (congestive heart failure) COPD (chronic obstructive pulmonary disease) Dementia Diabetes type 2, controlled Dysphagia Epilepsy GERD (gastroesophageal reflux disease) Hypertension Muscle weakness (generalized) Pneumonia due to Acinetobacter species Respiratory failure with hypoxia and hypercapnia Schizo affective schizophrenia Spinal stenosis Family History Family History Mother Cancer Social History Social History Household Members: None Housing: [facility] Housing Other:: non verbal Are you a primary rn palliative care to a significant other at home: No Unable to assess alcohol history related to: Unknown Alcohol intake: unknown Patient Tobacco Use Status: Never used Tobacco Second Hand Smoke Exposure: No Advance Directives: No Advance Directives Information Provided: No service: No Current occupational status: disabled Meds Allergies Allergy/AdvReac Type Severity Reaction Status Date / Time tuberculin, purified protein Allergy Unknown UNKNOWN Verified 12/21/21 13:21 deriva [Tuberculin,Purif.Prot.Deriv.] Active Medications: Current Medications Furosemide (Furosemide 20 Mg/2 Ml Vial) 20 mg IVPUSH ONCE ONE; Protocol Stop: 08/23/22 05:20 Glucagon (Glucagon,Human Recombinant 1 Mg/Ml Vial) 1 mg IVPUSH ONCE ONE Stop: 08/23/22 05:20 Dopamine HCl/Dextrose (Dopamine Hcl/D5w) 400 mg in 250 mls @ 0 mls/hr IVCONT .Q0M DAVID; Protocol Home Medications Medication Instructions Recorded Confirmed Last Taken Type acetaminophen 325 mg capsule 650 mg PO Q4H PRN Pain 01/19/20 08/08/22 Unknown History bicalutamide 50 mg tablet 50 mg PO DAILY 01/19/20 08/08/22 Unknown History furosemide 20 mg tablet (Lasix) 20 mg PO DAILY 01/19/20 08/08/22 Unknown History levalbuterol tartrate 45 2 puff inhalation Q4H PRN cough 01/19/20 08/08/22 Unknown History mcg/actuation aerosol inhaler lorazepam 2 mg/mL injection 1 mg IM Q5M PRN Seizure Activity 01/19/20 08/08/22 Unknown History solution (Ativan) omeprazole 20 mg capsule,delayed 20 mg PO DAILY@0630 01/19/20 08/08/22 Unknown History release sennosides 8.6 mg tablet (senna) 8.6 mg PO DAILY PRN Constipation 01/19/20 08/08/22 Unknown History guaifenesin 100 mg/5 mL oral liquid 200 mg PO Q6H PRN Cough 12/21/21 08/08/22 Unknown History sodium phosphates 19 gram-7 118 ml TN DAILY PRN Constipation 12/21/21 08/08/22 Unknown History gram/118 mL enema (Fleet Enema) aluminum-mag hydroxide-simethicone 20 ml PO Q4H PRN Dyspepsia 03/07/22 08/08/22 Unknown History 200 mg-200 mg-20 mg/5 mL oral susp dextran 70-hypromellose (PF) 0.1 1 drp ophthalmic (eye) Q8H PRN Dry 03/07/22 08/08/22 Unknown History %-0.3 % eye drops in a dropperette Eyes (Artificial Tears (PF)) aspirin 81 mg tablet,delayed 81 mg PO DAILY 08/08/22 08/08/22 Unknown History release bisacodyl 10 mg rectal suppository 10 mg TN DAILY PRN Constipation 08/08/22 08/08/22 Unknown History divalproex 125 mg capsule,delayed 1,000 mg PO DAILY 08/08/22 08/08/22 Unknown History release sprinkle doxycycline hyclate 50 mg capsule 50 mg PO DAILY 08/08/22 08/08/22 Unknown History ergocalciferol (vitamin D2) 1,250 1,250 mcg PO DAILY 08/08/22 08/08/22 Unknown History mcg (50,000 unit) capsule levalbuterol tartrate 45 2 puff inhalation BID 08/08/22 08/08/22 Unknown History mcg/actuation aerosol inhaler sennosides 8.6 mg tablet (senna) 8.6 mg PO BID 08/08/22 08/08/22 Unknown History Physical Exam Vital Signs: Vital Signs: Last Vital Signs Temp 97.6 F 08/22/22 23:53 Pulse 50 08/22/22 23:53 Resp 26 H 08/23/22 03:15 BP 115/62 08/22/22 23:53 Pulse Ox 100 08/22/22 23:53 O2 Del Method Nasal Cannula 08/22/22 23:53 O2 Flow Rate 3 08/22/22 23:53 Oxygen Flow Rate 12 08/22/22 19:41 BMI result Body Mass Index 26.2 Results Labs 08/23/22 04:44 08/22/22 19:46 Labs: Laboratory Results - last 24 hr 08/22/22 08/22/22 08/22/22 19:33 19:46 19:46 MCV 93.7 MCH 30.4 MCHC 32.5 RDW 14.3 Plt Count 289 D MPV 9.7 Immature Gran % (Auto) 0.4 Neut % (Auto) 75.5 H Lymph % (Auto) 17.1 L Deuel % (Auto) 5.6 Eos % (Auto) 1.2 Baso % (Auto) 0.2 Lymph # (Auto) 1.4 Deuel # (Auto) 0.5 Eos # (Auto) 0.1 Baso # (Auto) 0.0 Abs Immat Gran (auto) 0.03 Absolute Neuts (auto) 6.3 Absolute Nucleated RBC 0.000 Nucleated RBC % (auto) 0.0 PT INR D-Dimer High Sensitivty O2 Saturation ABG pH at Pt Temp ABG pCO2 at Pt Temp ABG pO2 at Pt Temp ABG HCO3 ABG Base Excess (Actual) VBG pH VBG pCO2 VBG pO2 VBG HCO3 VBG O2 Saturation VBG Base Excess Anion Gap 19 Estim Creat Clear Calc 64.7 Estimated GFR > 60 POC Glucose Random Glucose 260 H Lactic Acid Lactic Acid F/U @ 2Hr Calcium 9.3 D Magnesium 2.2 Total Bilirubin 0.7 AST 24 ALT 51 H Alkaline Phosphatase 79 Ammonia Troponin I High Sens B-Natriuretic Peptide 1973 H Total Protein 7.6 Albumin 4.2 COVID-19 (COLIN) COVID-19 Clin Com 08/22/22 08/22/22 08/22/22 19:46 19:46 19:46 MCV MCH MCHC RDW Plt Count MPV Immature Gran % (Auto) Neut % (Auto) Lymph % (Auto) Deuel % (Auto) Eos % (Auto) Baso % (Auto) Lymph # (Auto) Deuel # (Auto) Eos # (Auto) Baso # (Auto) Abs Immat Gran (auto) Absolute Neuts (auto) Absolute Nucleated RBC Nucleated RBC % (auto) PT 12.5 INR 1.1 D-Dimer High Sensitivty 626 O2 Saturation ABG pH at Pt Temp ABG pCO2 at Pt Temp ABG pO2 at Pt Temp ABG HCO3 ABG Base Excess (Actual) VBG pH VBG pCO2 VBG pO2 VBG HCO3 VBG O2 Saturation VBG Base Excess Anion Gap Estim Creat Clear Calc Estimated GFR POC Glucose Random Glucose Lactic Acid 2.5 H* Lactic Acid F/U @ 2Hr Calcium Magnesium Total Bilirubin AST ALT Alkaline Phosphatase Ammonia Troponin I High Sens 28.0 D B-Natriuretic Peptide Total Protein Albumin COVID-19 ([facility]IN) COVID-19 Clin Com 08/22/22 08/22/22 08/22/22 19:46 19:48 19:58 MCV MCH MCHC RDW Plt Count MPV Immature Gran % (Auto) Neut % (Auto) Lymph % (Auto) Deuel % (Auto) Eos % (Auto) Baso % (Auto) Lymph # (Auto) Deuel # (Auto) Eos # (Auto) Baso # (Auto) Abs Immat Gran (auto) Absolute Neuts (auto) Absolute Nucleated RBC Nucleated RBC % (auto) PT INR D-Dimer High Sensitivty O2 Saturation 99.0 ABG pH at Pt Temp 7.25 L ABG pCO2 at Pt Temp 75 H* ABG pO2 at Pt Temp 215 H ABG HCO3 33 H ABG Base Excess (Actual) 2.9 VBG pH VBG pCO2 VBG pO2 VBG HCO3 VBG O2 Saturation VBG Base Excess Anion Gap Estim Creat Clear Calc Estimated GFR POC Glucose 226 H Random Glucose Lactic Acid Lactic Acid F/U @ 2Hr Calcium Magnesium Total Bilirubin AST ALT Alkaline Phosphatase Ammonia Troponin I High Sens B-Natriuretic Peptide Total Protein Albumin COVID-19 ([facility]) Negative COVID-19 Clin Com See Note 08/22/22 08/22/22 08/22/22 20:00 23:23 23:24 MCV MCH MCHC RDW Plt Count MPV Immature Gran % (Auto) Neut % (Auto) Lymph % (Auto) Deuel % (Auto) Eos % (Auto) Baso % (Auto) Lymph # (Auto) Deuel # (Auto) Eos # (Auto) Baso # (Auto) Abs Immat Gran (auto) Absolute Neuts (auto) Absolute Nucleated RBC Nucleated RBC % (auto) PT INR D-Dimer High Sensitivty O2 Saturation 93.0 ABG pH at Pt Temp 7.36 ABG pCO2 at Pt Temp 64 H* ABG pO2 at Pt Temp 78 L ABG HCO3 37 H ABG Base Excess (Actual) 9.2 VBG pH 7.28 L VBG pCO2 76 VBG pO2 83 VBG HCO3 36 H VBG O2 Saturation 95.0 VBG Base Excess 6.1 Anion Gap Estim Creat Clear Calc Estimated GFR POC Glucose Random Glucose Lactic Acid Lactic Acid F/U @ 2Hr Calcium Magnesium Total Bilirubin AST ALT Alkaline Phosphatase Ammonia Troponin I High Sens 63.8 H D B-Natriuretic Peptide Total Protein Albumin COVID-19 ([facility]IN) COVID-19 [employer] 08/22/22 08/22/22 08/23/22 23:24 23:57 00:37 MCV MCH MCHC RDW Plt Count MPV Immature Gran % (Auto) Neut % (Auto) Lymph % (Auto) Deuel % (Auto) Eos % (Auto) Baso % (Auto) Lymph # (Auto) Deuel # (Auto) Eos # (Auto) Baso # (Auto) Abs Immat Gran (auto) Absolute Neuts (auto) Absolute Nucleated RBC Nucleated RBC % (auto) PT INR D-Dimer High Sensitivty O2 Saturation 97.0 ABG pH at Pt Temp 7.33 L ABG pCO2 at Pt Temp 72 H* ABG pO2 at Pt Temp 96 ABG HCO3 39 H ABG Base Excess (Actual) 10.0 VBG pH VBG pCO2 VBG pO2 VBG HCO3 VBG O2 Saturation VBG Base Excess Anion Gap Estim Creat Clear Calc Estimated GFR POC Glucose Random Glucose Lactic Acid Lactic Acid F/U @ 2Hr 1.2 Calcium Magnesium Total Bilirubin AST ALT Alkaline Phosphatase Ammonia Troponin I High Sens B-Natriuretic Peptide 2534 H Total Protein Albumin COVID-19 (COLIN) COVID-19 [employer] 08/23/22 08/23/22 08/23/22 03:21 04:44 04:44 MCV 92.6 MCH 30.3 MCHC 32.7 RDW 14.4 Plt Count 209 D MPV 9.4 Immature Gran % (Auto) 0.5 H Neut % (Auto) 82.3 H Lymph % (Auto) 9.0 L Deuel % (Auto) 7.8 Eos % (Auto) 0.3 Baso % (Auto) 0.1 Lymph # (Auto) 1.0 L Deuel # (Auto) 0.8 Eos # (Auto) 0.0 Baso # (Auto) 0.0 Abs Immat Gran (auto) 0.05 H Absolute Neuts (auto) 8.8 H Absolute Nucleated RBC 0.000 Nucleated RBC % (auto) 0.0 PT INR D-Dimer High Sensitivty O2 Saturation ABG pH at Pt Temp ABG pCO2 at Pt Temp ABG pO2 at Pt Temp ABG HCO3 ABG Base Excess (Actual) VBG pH VBG pCO2 VBG pO2 VBG HCO3 VBG O2 Saturation VBG Base Excess Anion Gap Estim Creat Clear Calc Estimated GFR POC Glucose 76 Random Glucose Lactic Acid Lactic Acid F/U @ 2Hr Calcium Magnesium Total Bilirubin AST ALT Alkaline Phosphatase Ammonia 38 Troponin I High Sens B-Natriuretic Peptide Total Protein Albumin COVID-19 ([facility]IN) COVID-19 [employer] Com 08/23/22 08/23/22 04:47 04:59 MCV MCH MCHC RDW Plt Count MPV Immature Gran % (Auto) Neut % (Auto) Lymph % (Auto) Deuel % (Auto) Eos % (Auto) Baso % (Auto) Lymph # (Auto) Deuel # (Auto) Eos # (Auto) Baso # (Auto) Abs Immat Gran (auto) Absolute Neuts (auto) Absolute Nucleated RBC Nucleated RBC % (auto) PT INR D-Dimer High Sensitivty O2 Saturation ABG pH at Pt Temp ABG pCO2 at Pt Temp ABG pO2 at Pt Temp ABG HCO3 ABG Base Excess (Actual) VBG pH 7.36 7.38 VBG pCO2 67 59 VBG pO2 52 64 VBG HCO3 38 H 35 H VBG O2 Saturation 77.0 89.0 VBG Base Excess 9.4 8.3 Anion Gap Estim Creat Clear Calc Estimated GFR POC Glucose Random Glucose Lactic Acid Lactic Acid F/U @ 2Hr Calcium Magnesium Total Bilirubin AST ALT Alkaline Phosphatase Ammonia Troponin I High Sens B-Natriuretic Peptide Total Protein Albumin COVID-19 (COLIN) COVID-19 Clin Com Imaging Radiologist's Impressions: Impressions Chest X-Ray 08/22/22 20:21 IMPRESSION: * Linear, streaky opacities of bibasilar atelectasis. No overt consolidation. * There appears to be mild thickening of airway john or peribronchial interstitium. Differential diagnostic considerations would include mild pulmonary edema or inflammatory thickening of bronchial john. Chest CTA 08/22/22 21:31 IMPRESSION: 1. No evidence of pulmonary emboli. 2. Bibasilar atelectasis with trace pleural effusions. VTE: negative. Assessment and Plan Time Spent With Patient Time: Total time managing care of this patient today ____ minutes.
[2022-08-23 05:27] LABS: Valproate 47.7 mcg/mL (50.0-100.0)
--- NOTE | 2022-08-23 05:39 | W.PM.CCHP ---
Procedures Date of Service Date of Service: 08/23/22 Central Line Placement Right IJ: Central Line Comments: A quick time-out was made for clarification and proper patient identification, patient was positioned, landmarks were identified, US used to locate a? large compressible IJ.? The right neck was widely prepped and draped in a full sterile fashion.? Ultrasound was used to locate again the right IJ, the vein was cannulated on the 1st pass with an 18 gauge thin needle, dark nonpulsatile blood return was obtained.? The wire was threaded, a small incision was made at its base and dilator inserted.? A 16cm triple-lumen central venous catheter was advanced into the vein up to the hub without problems, wired was removed. Ports had? good blood return and flushed x3.? The catheter was secured with 3 sutures at 3 sites, a Biopatch and dry sterile dressing were applied. Post procedure chest x-ray showed the line to be in good position without pneumothorax.? No bleeding or complications noted. Consent for Procedure: Emergent-no informed consent obtained
[2022-08-23 05:43] LABS: Alanine Aminotransferase 39 U/L (0-40); Albumin Level 3.5 g/dL (3.5-5.0); Alkaline Phosphatase 64 U/L (39-117); Anion Gap 18 (12-20); Aspartate Amino Transferase 17 U/L (5-37); Bilirubin Total 0.5 mg/dL (0.0-1.0); Blood Urea Nitrogen 14 mg/dL (9-16); Calcium 8.8 mg/dL (8.4-10.2); Carbon Dioxide 29 mmol/L (22-29); Chloride 98 mmol/L (96-108); Creatinine Clr Calc Pharmacy 82.6; Estimated Glomerular Filt Rate > 60; Glucose Random 98 mg/dL (60-115); Magnesium 2.3 mg/dL (1.6-2.6); Phosphorus 4.6 mg/dL (2.7-4.5); Potassium 4.7 mmol/L (3.3-5.1); Sodium 140 mmol/L (135-145); Total Protein 6.3 g/dL (6.5-8.0)
[2022-08-23] MEDS: DOPamine HCL/D5W 400 MG/250 ML PLAST..BAG 7.56 MG IVCONT (05:45)
--- NOTE | 2022-08-23 06:07 | PC.NURSE ---
ADMIT TO 255-2 APPROX 3AM DURING COMPUTER DOWN-TIME--PATIENT SOMNOLENT BUT AROUSES--MUMBLES AND WEAKLY [place]--CONTINUES ON BIPAP--14/8 AND FIO2 28%...Ve 6-7 L/M---SAO2 93-94%---LUNGS DIMININSHED---POC=76---SINUS JEVON HR 45-50---TRANSIENT DECREASES TO 38-40---GLUCAGON 1 MG IV X1 PER ICU PA--TRANSIENT INCREASE HR TO 54-56 THEN RETURNED TO 45-50..BP MARGINAL---STARTED PERIPHERAL DOPAMINE 5 MCG/KG/MIN WITH IMPROVED BP AND NSR HR 66-76---DOPAMINE WEANED TO 2.5 MCG/KG/MIN PER PA...TLC INSERTED RIGHT IJ --CXR DONE--PA CONFIRMED PLACEMENT AND DOPAMINE INFUSING VIA TLC---LASIX 20MG IV X1--TOTAL OUTPUT SINCE INSERTION OF LOMBARDO IN ER DEPT= 850ml--STAGE 1 AREA TO COCCYX/SACRUM...NSR--ISOLATED PVC
[2022-08-23] MEDS: Heparin Sodium,Porcine 5,000 UNIT/ML VIAL 5000 UNIT SUBCUT ×3 (06:24→22:48)
[2022-08-23] MEDS: Valproic Acid (as Sodium Salt) 1,500 MG in 0.9 % Sodium Chloride 100 ML 100 MG IV (06:43)
--- NOTE | 2022-08-23 08:02 | PHA.MEDREC ---
Pharmacy Consult ? Medication Reconciliation Pharmacy has completed the medication reconciliation. Patient is from [facility]. Utilized medical records as patient was recently discharged on 08/13/22 and called [facility] to confirm meds. Per [facility], Patient is on amiodarone 400mg BID and their last day is 08/23/22, where they will then be transitioned to amiodarone 200mg daily.
[2022-08-23] MEDS: Furosemide 40 MG/4 ML VIAL IVPUSH ×2 (08:04→18:41)
[2022-08-23] MEDS: Pantoprazole Sodium 40 MG/10 ML VIAL IVPUSH (08:04)
--- NOTE | 2022-08-23 10:23 | P.CONCA_ITS ---
History of Present Illness History of Present Illness Date of Service: 08/23/22 Chief complaint: Hypercarbic Resp Failure/CHF/O2 Poisoning Narrative: This is a cardiology consultation regarding congestive heart failure. Current admissions because of shortness of breath and hypoxia. Per EMS evaluation, vitals were okay but it seems that he was cold, clammy, sweaty and had difficulty breathing and some chest tightness and hence brought to the hospital. I tried to evaluate him with a chemical laboratory tester. With regard to my specific questions like shortness of breath and chest pain, he states no. He states he is feeling okay. However, question is how much she is reliable. He lives in [facility]. Has various comorbidities including dementia, epilepsy and other neurological issues. He had a recent admission for ventricular tachycardia at that time diagnosed with severe cardiomyopathy. However, due to mental health issues he was not felt to be a good candidate for invasive workup. Review of Systems Review of Systems: Yes all other systems are reviewed and are negative Constitutional: Constitutional: Reports as per HPI and Reports no additional constitutional complaints Eyes: Eyes: Reports as per HPI and Denies no additional eye complaints ENT: Denies system reviewed and no additional complaints, except as documented and Reports as per HPI Cardiovascular: Cardiovascular: Reports as per HPI, Reports no additional cardiovascular complaints, Denies acrocyanosis, Denies cool extremities, Denies chest pain, Denies leg edema, Denies lightheadedness, Denies palpitations and Denies dyspnea Respiratory: Respiratory: Reports as per HPI, Denies no additional respiratory complaints and Denies dyspnea Gastrointestinal: Gastrointestinal: Reports as per HPI and Denies no additional gastrointestinal complaints Genitourinary: Genitourinary: Reports no additional male genitourinary complaints and Reports as per HPI Musculoskeletal: Musculoskeletal: Reports no additional musculoskeletal c omplaints and Reports as per HPI Integumentary/Breasts: Skin/Breast: Reports system reviewed and no additional complaints, except as docu Neurologic: Reports system reviewed and no additional complaints, except as do cumented and Reports as per HPI Psychiatric: Psychiatric: Reports no additional psychiatric complaints and Reports as per HPI Endocrine: Endocrine: Reports no additional endocrine complaints, Reports as per HPI and Denies palpitations Hematologic/Lymphatic: Hematologic/Lymphatic: Reports no additional hematologic/lymphatic complaints and Reports as per HPI Allergic/Immunologic: Allergic/Immunologic: Reports no additional allergic/immunologic complaints and Reports as per HPI [facility] Past Medical History Medical History (Updated 08/23/22 @ 10:26 by Abhishek Devries MD) Cervicalgia CHF (congestive heart failure) COPD (chronic obstructive pulmonary disease) Dementia Diabetes type 2, controlled Dysphagia Epilepsy GERD (gastroesophageal reflux disease) Hypertension Muscle weakness (generalized) Pneumonia due to Acinetobacter species Respiratory failure with hypoxia and hypercapnia Schizo affective schizophrenia Spinal stenosis Family History Family History Mother Cancer Social History Social History Household Members: None Housing: Retirement Housing Other:: non verbal Are you a primary post acute care nurse to a significant other at home: No Unable to assess alcohol history related to: Unknown Alcohol intake: unknown Patient Tobacco Use Status: Never used Tobacco Second Hand Smoke Exposure: No Currently Displaying Signs/Symptoms of Drug Intoxication Withdrawal: No Advance Directives: No Advance Directives Information Provided: No service: No Current occupational status: disabled Meds Allergies Allergy/AdvReac Type Severity Reaction Status Date / Time tuberculin, purified protein Allergy Unknown UNKNOWN Verified 12/21/21 13:21 deriva [Tuberculin,Purif.Prot.Deriv.] Active Medications: Current Medications Furosemide (Furosemide 40 Mg/4 Ml Vial) 40 mg IVPUSH BID@0900,1800 [facility]; Protocol Last Admin: 08/23/22 08:04 Dose: 40 mg Heparin Sodium (Porcine) (Heparin Sodium,Porcine 5,000 Unit/Ml Vial) 5,000 unit SUBCUT Q8H DAVID Last Admin: 08/23/22 06:24 Dose: 5,000 unit Dopamine HCl/Dextrose (Dopamine Hcl/D5w) 400 mg in 250 mls @ 0 mls/hr IVCONT .Q0M DAVID; Protocol Last Admin: 08/23/22 05:45 Dose: 2.5 mcg/kg/min, 7.56 mls/hr Valproic Acid 1,000 mg/ (Dextrose) 60 mls @ 60 mls/hr IV DAILY DAVID Pantoprazole Sodium (Pantoprazole Sodium 40 Mg/10 Ml Vial) 40 mg IVPUSH DAILY@0630 [facility] Last Admin: 08/23/22 08:04 Dose: 40 mg Home Medications Medication Instructions Recorded Confirmed Last Taken Type acetaminophen 325 mg capsule 650 mg PO Q4H PRN Pain 01/19/20 08/23/22 Unknown History bicalutamide 50 mg tablet 50 mg PO DAILY 01/19/20 08/23/22 08/22/22 History furosemide 20 mg tablet (Lasix) 20 mg PO DAILY 01/19/20 08/23/22 08/22/22 History levalbuterol tartrate 45 2 puff inhalation Q4H PRN cough 01/19/20 08/23/22 Unknown History mcg/actuation aerosol inhaler lorazepam 2 mg/mL injection 1 mg IM Q5M PRN Seizure Activity 01/19/20 08/23/22 Unknown History solution (Ativan) omeprazole 20 mg capsule,delayed 20 mg PO DAILY@0630 01/19/20 08/23/22 08/22/22 History release sennosides 8.6 mg tablet (senna) 8.6 mg PO DAILY PRN Constipation 01/19/20 08/23/22 Unknown History guaifenesin 100 mg/5 mL oral liquid 200 mg PO Q6H PRN Cough 12/21/21 08/23/22 Unknown History sodium phosphates 19 gram-7 118 ml [place] DAILY PRN Constipation 12/21/21 08/23/22 Unknown History gram/118 mL enema (Fleet Enema) aluminum-mag hydroxide-simethicone 20 ml PO Q4H PRN Dyspepsia 03/07/22 08/23/22 Unknown History 200 mg-200 mg-20 mg/5 mL oral susp dextran 70-hypromellose (PF) 0.1 1 drp ophthalmic (eye) Q8H PRN Dry 03/07/22 08/23/22 Unknown History %-0.3 % eye drops in a dropperette Eyes (Artificial Tears (PF)) aspirin 81 mg tablet,delayed 81 mg PO DAILY 08/08/22 08/23/22 08/22/22 History release bisacodyl 10 mg rectal suppository 10 mg [place] DAILY PRN Constipation 08/08/22 08/23/22 Unknown History divalproex 125 mg capsule,delayed 1,000 mg PO DAILY 08/08/22 08/23/22 08/22/22 History release sprinkle doxycycline hyclate 50 mg capsule 50 mg PO DAILY 08/08/22 08/23/22 08/22/22 History levalbuterol tartrate 45 2 puff inhalation BID 08/08/22 08/23/22 08/22/22 History mcg/actuation aerosol inhaler sennosides 8.6 mg tablet (senna) 8.6 mg PO BID 08/08/22 08/23/22 08/22/22 History amiodarone 200 mg tablet 200 mg PO DAILY 08/23/22 08/23/22 Unknown History Physical Exam Vital Signs: Vital Signs: Last Vital Signs Temp 97.3 F 08/23/22 08:00 Pulse 80 08/23/22 10:00 Resp 22 H 08/23/22 10:00 BP 91/58 L 08/23/22 10:00 Pulse Ox 93 08/23/22 10:00 O2 Del Method BiPAP 08/23/22 10:00 O2 Flow Rate 28 08/23/22 06:00 FiO2 28 08/23/22 10:00 Oxygen Flow Rate 12 08/22/22 19:41 BMI result Body Mass Index 26.2 Const: General: comfortable and no acute distress Orientation/consciousness: No patient oriented x3 HEENT: Other: Unremarkable Head: Yes normal to inspection Neck: Neck: Yes normal visual inspection Chest: Chest palpation & inspection: normal inspection of the chest Resp: Auscultation: clear to auscultation bilaterally Cardio: Palpation: normal PMI Heart sounds: S1 normal heart sound present, S2 normal heart sound present, no gallops, no murmurs and no rubs GI: Palpation (GI): Soft to palpation Back/Spine/Pelvis: Other: unremarkable Skin: General skin exam: no rashes or lesions noted Neuro: General: No patient oriented x3 Extrem: General: Yes normal to inspection Psych: Mental Status: mental status grossly abnormal Objective Labs and Meds 08/23/22 04:44 08/23/22 04:44 Lab results: Laboratory Results - last 24 hr 08/22/22 08/22/22 08/22/22 19:33 19:46 19:46 WBC 8.4 RBC 5.36 D Hgb 16.3 D Hct 50.2 MCV 93.7 MCH 30.4 MCHC 32.5 RDW 14.3 Plt Count 289 D MPV 9.7 Immature Gran % (Auto) 0.4 Neut % (Auto) 75.5 H Lymph % (Auto) 17.1 L [place] % (Auto) 5.6 Eos % (Auto) 1.2 Baso % (Auto) 0.2 Lymph # (Auto) 1.4 [place] # (Auto) 0.5 Eos # (Auto) 0.1 Baso # (Auto) 0.0 Abs Immat Gran (auto) 0.03 Absolute Neuts (auto) 6.3 Absolute Nucleated RBC 0.000 Nucleated RBC % (auto) 0.0 PT INR D-Dimer High Sensitivty O2 Saturation ABG pH at Pt Temp ABG pCO2 at Pt Temp ABG pO2 at Pt Temp ABG HCO3 ABG Base Excess (Actual) VBG pH VBG pCO2 VBG pO2 VBG HCO3 VBG O2 Saturation VBG Base Excess Sodium 137 Potassium 5.2 H Chloride 96 Carbon Dioxide 27 Anion Gap 19 BUN 14 Creatinine 0.97 Estim Creat Clear Calc 64.7 Estimated GFR > 60 POC Glucose Random Glucose 260 H Lactic Acid Lactic Acid F/U @ 2Hr Calcium 9.3 D Phosphorus Magnesium 2.2 Total Bilirubin 0.7 AST 24 ALT 51 H Alkaline Phosphatase 79 Ammonia Troponin I High Sens B-Natriuretic Peptide 1973 H Total Protein 7.6 Albumin 4.2 Valproic Acid COVID-19 ([facility]) COVID-19 Clin Com 08/22/22 08/22/22 08/22/22 19:46 19:46 19:46 WBC RBC Hgb Hct MCV MCH MCHC RDW Plt Count MPV Immature Gran % (Auto) Neut % (Auto) Lymph % (Auto) [place] % (Auto) Eos % (Auto) Baso % (Auto) Lymph # (Auto) [place] # (Auto) Eos # (Auto) Baso # (Auto) Abs Immat Gran (auto) Absolute Neuts (auto) Absolute Nucleated RBC Nucleated RBC % (auto) PT 12.5 INR 1.1 D-Dimer High Sensitivty 626 O2 Saturation ABG pH at Pt Temp ABG pCO2 at Pt Temp ABG pO2 at Pt Temp ABG HCO3 ABG Base Excess (Actual) VBG pH VBG pCO2 VBG pO2 VBG HCO3 VBG O2 Saturation VBG Base Excess Sodium Potassium Chloride Carbon Dioxide Anion Gap BUN Creatinine Estim Creat Clear Calc Estimated GFR POC Glucose Random Glucose Lactic Acid 2.5 H* Lactic Acid F/U @ 2Hr Calcium Phosphorus Magnesium Total Bilirubin AST ALT Alkaline Phosphatase Ammonia Troponin I High Sens 28.0 D B-Natriuretic Peptide Total Protein Albumin Valproic Acid COVID-19 ([facility]) COVID-19 [facility] 08/22/22 08/22/22 08/22/22 19:46 19:48 19:58 WBC RBC Hgb Hct MCV MCH MCHC RDW Plt Count MPV Immature Gran % (Auto) Neut % (Auto) Lymph % (Auto) [place] % (Auto) Eos % (Auto) Baso % (Auto) Lymph # (Auto) [place] # (Auto) Eos # (Auto) Baso # (Auto) Abs Immat Gran (auto) Absolute Neuts (auto) Absolute Nucleated RBC Nucleated RBC % (auto) PT INR D-Dimer High Sensitivty O2 Saturation 99.0 ABG pH at Pt Temp 7.25 L ABG pCO2 at Pt Temp 75 H* ABG pO2 at Pt Temp 215 H ABG HCO3 33 H ABG Base Excess (Actual) 2.9 VBG pH VBG pCO2 VBG pO2 VBG HCO3 VBG O2 Saturation VBG Base Excess Sodium Potassium Chloride Carbon Dioxide Anion Gap BUN Creatinine Estim Creat Clear Calc Estimated GFR POC Glucose 226 H Random Glucose Lactic Acid Lactic Acid F/U @ 2Hr Calcium Phosphorus Magnesium Total Bilirubin AST ALT Alkaline Phosphatase Ammonia Troponin I High Sens B-Natriuretic Peptide Total Protein Albumin Valproic Acid COVID-19 ([facility]) Negative COVID-19 [facility] See Note 08/22/22 08/22/22 08/22/22 20:00 23:23 23:24 WBC RBC Hgb Hct MCV MCH MCHC RDW Plt Count MPV Immature Gran % (Auto) Neut % (Auto) Lymph % (Auto) [place] % (Auto) Eos % (Auto) Baso % (Auto) Lymph # (Auto) [place] # (Auto) Eos # (Auto) Baso # (Auto) Abs Immat Gran (auto) Absolute Neuts (auto) Absolute Nucleated RBC Nucleated RBC % (auto) PT INR D-Dimer High Sensitivty O2 Saturation 93.0 ABG pH at Pt Temp 7.36 ABG pCO2 at Pt Temp 64 H* ABG pO2 at Pt Temp 78 L ABG HCO3 37 H ABG Base Excess (Actual) 9.2 VBG pH 7.28 L VBG pCO2 76 VBG pO2 83 VBG HCO3 36 H VBG O2 Saturation 95.0 VBG Base Excess 6.1 Sodium Potassium Chloride Carbon Dioxide Anion Gap BUN Creatinine Estim Creat Clear Calc Estimated GFR POC Glucose Random Glucose Lactic Acid Lactic Acid F/U @ 2Hr Calcium Phosphorus Magnesium Total Bilirubin AST ALT Alkaline Phosphatase Ammonia Troponin I High Sens 63.8 H D B-Natriuretic Peptide Total Protein Albumin Valproic Acid COVID-19 ([facility]) COVID-19 [facility] 08/22/22 08/22/22 08/23/22 23:24 23:57 00:37 WBC RBC Hgb Hct MCV MCH MCHC RDW Plt Count MPV Immature Gran % (Auto) Neut % (Auto) Lymph % (Auto) [place] % (Auto) Eos % (Auto) Baso % (Auto) Lymph # (Auto) [place] # (Auto) Eos # (Auto) Baso # (Auto) Abs Immat Gran (auto) Absolute Neuts (auto) Absolute Nucleated RBC Nucleated RBC % (auto) PT INR D-Dimer High Sensitivty O2 Saturation 97.0 ABG pH at Pt Temp 7.33 L ABG pCO2 at Pt Temp 72 H* ABG pO2 at Pt Temp 96 ABG HCO3 39 H ABG Base Excess (Actual) 10.0 VBG pH VBG pCO2 VBG pO2 VBG HCO3 VBG O2 Saturation VBG Base Excess Sodium Potassium Chloride Carbon Dioxide Anion Gap BUN Creatinine Estim Creat Clear Calc Estimated GFR POC Glucose Random Glucose Lactic Acid Lactic Acid F/U @ 2Hr 1.2 Calcium Phosphorus Magnesium Total Bilirubin AST ALT Alkaline Phosphatase Ammonia Troponin I High Sens B-Natriuretic Peptide 2534 H Total Protein Albumin Valproic Acid COVID-19 ([facility]) COVID-19 [facility] 08/23/22 08/23/22 08/23/22 03:21 04:44 04:44 WBC RBC Hgb Hct MCV MCH MCHC RDW Plt Count MPV Immature Gran % (Auto) Neut % (Auto) Lymph % (Auto) [place] % (Auto) Eos % (Auto) Baso % (Auto) Lymph # (Auto) [place] # (Auto) Eos # (Auto) Baso # (Auto) Abs Immat Gran (auto) Absolute Neuts (auto) Absolute Nucleated RBC Nucleated RBC % (auto) PT INR D-Dimer High Sensitivty O2 Saturation ABG pH at Pt Temp ABG pCO2 at Pt Temp ABG pO2 at Pt Temp ABG HCO3 ABG Base Excess (Actual) VBG pH VBG pCO2 VBG pO2 VBG HCO3 VBG O2 Saturation VBG Base Excess Sodium 140 Potassium 4.7 Chloride 98 Carbon Dioxide 29 Anion Gap 18 BUN 14 Creatinine 0.76 Estim Creat Clear Calc 82.6 Estimated GFR > 60 POC Glucose 76 Random Glucose 98 Lactic Acid Lactic Acid F/U @ 2Hr Calcium 8.8 Phosphorus 4.6 H Magnesium 2.3 Total Bilirubin 0.5 AST 17 ALT 39 Alkaline Phosphatase 64 Ammonia Troponin I High Sens B-Natriuretic Peptide Total Protein 6.3 L Albumin 3.5 Valproic Acid 47.7 L COVID-19 ([facility]) COVID-19 Clin Com 08/23/22 08/23/22 08/23/22 04:44 04:44 04:44 WBC RBC Hgb Hct MCV MCH MCHC RDW Plt Count MPV Immature Gran % (Auto) Neut % (Auto) Lymph % (Auto) [place] % (Auto) Eos % (Auto) Baso % (Auto) Lymph # (Auto) [place] # (Auto) Eos # (Auto) Baso # (Auto) Abs Immat Gran (auto) Absolute Neuts (auto) Absolute Nucleated RBC Nucleated RBC % (auto) PT INR D-Dimer High Sensitivty O2 Saturation ABG pH at Pt Temp ABG pCO2 at Pt Temp ABG pO2 at Pt Temp ABG HCO3 ABG Base Excess (Actual) VBG pH VBG pCO2 VBG pO2 VBG HCO3 VBG O2 Saturation VBG Base Excess Sodium Potassium Chloride Carbon Dioxide Anion Gap BUN Creatinine Estim Creat Clear Calc Estimated GFR POC Glucose Random Glucose Lactic Acid 0.6 Lactic Acid F/U @ 2Hr Calcium Phosphorus Magnesium Total Bilirubin AST ALT Alkaline Phosphatase Ammonia 38 Troponin I High Sens 51.0 H B-Natriuretic Peptide Total Protein Albumin Valproic Acid COVID-19 ([facility]) COVID-19 Clin Com 08/23/22 08/23/22 08/23/22 04:44 04:47 04:59 WBC 10.7 RBC 5.02 Hgb 15.2 Hct 46.5 MCV 92.6 MCH 30.3 MCHC 32.7 RDW 14.4 Plt Count 209 D MPV 9.4 Immature Gran % (Auto) 0.5 H Neut % (Auto) 82.3 H Lymph % (Auto) 9.0 L [place] % (Auto) 7.8 Eos % (Auto) 0.3 Baso % (Auto) 0.1 Lymph # (Auto) 1.0 L [place] # (Auto) 0.8 Eos # (Auto) 0.0 Baso # (Auto) 0.0 Abs Immat Gran (auto) 0.05 H Absolute Neuts (auto) 8.8 H Absolute Nucleated RBC 0.000 Nucleated RBC % (auto) 0.0 PT INR D-Dimer High Sensitivty O2 Saturation ABG pH at Pt Temp ABG pCO2 at Pt Temp ABG pO2 at Pt Temp ABG HCO3 ABG Base Excess (Actual) VBG pH 7.36 Cancelled VBG pCO2 67 Cancelled VBG pO2 52 Cancelled VBG HCO3 38 H Cancelled VBG O2 Saturation 77.0 Cancelled VBG Base Excess 9.4 Cancelled Sodium Potassium Chloride Carbon Dioxide Anion Gap BUN Creatinine Estim Creat Clear Calc Estimated GFR POC Glucose Random Glucose Lactic Acid Lactic Acid F/U @ 2Hr Calcium Phosphorus Magnesium Total Bilirubin AST ALT Alkaline Phosphatase Ammonia Troponin I High Sens B-Natriuretic Peptide Total Protein Albumin Valproic Acid COVID-19 ([facility]) COVID-19 Clin Com ECG Interpretation: EKG with sinus rhythm at 88/Min; possible left atrial enlargement; right bundle- branch block pattern and PVCs. Home Imaging Radiologist's impression: Impressions Chest X-Ray 08/22/22 20:21 IMPRESSION: * Linear, streaky opacities of bibasilar atelectasis. No overt consolidation. * There appears to be mild thickening of airway john or peribronchial interstitium. Differential diagnostic considerations would include mild pulmonary edema or inflammatory thickening of bronchial john. Chest CTA 08/22/22 21:31 IMPRESSION: 1. No evidence of pulmonary emboli. 2. Bibasilar atelectasis with trace pleural effusions. VTE: negative. Chest X-Ray 08/23/22 05:32 IMPRESSION: * Right internal jugular central venous catheter terminates in the right atrium. * No pneumothorax. Assessment and Plan (1) Acute on chronic systolic CHF (congestive heart failure), NYHA class 4: Status: Acute (2) Ventricular tachycardia: Status: Acute (3) Altered mental status: Status: Acute (4) Dementia: Status: Acute Plan High sensitivity troponins are 28 followed by 64 followed by 51. Cardiac BNP is 1973 followed by 2534. Higher than before. Chest x-ray with small bilateral pleural effusions, atelectasis. And echocardiogram with severe increased left ventricular size and LVEF of less than 10%. Severe right ventricular systolic dysfunction. No significant valvular issues. Overall, severe biventricular dysfunction, acute on chronic congestive heart failure. Okay for empiric diuretics. Due to lowish blood pressure is also on a small dose of dopamine. Not going to be able tolerate any guideline based medical therapy because of low blood pressure issues. Also not suitable for any invasive procedures like cardiac catheterization again mainly due to mental health issues. His code status and goals of care will need to be addressed. Discussed with Dr. Castillo who is his primary care physician at [facility]. He will look into what we can do. Aggressive care in this gentleman not recommended and will be futile. d/w , . Time Spent With Patient Time: Total time managing care of this patient today ____ minutes. Procedures Date of Service Date of Service: 08/23/22
[2022-08-23] MEDS: Amiodarone HCL 900 MG in 0.9 % Sodium Chloride 500 ML 34.53 MG IVCONT (12:17)
[2022-08-23 14:25] LABS: ABG Base Excess 10.8 mmol/L; ABG HCO3 35 mmol/L (22-26); ABG pCO2 47 mmHg (32-45); ABG pH 7.48 (7.35-7.45); ABG pO2 66 mmHg (83-108)
[2022-08-23] MEDS: fentaNYL citrate/PF 100 MCG/2 ML VIAL 25 MCG IVPUSH (18:41)
[2022-08-24] VITALS (13 sets, daily range): BP systolic 93–133; BP diastolic 49–66; PULSE 55–66; RESP 15–31; TEMP 35.9–37; O2SAT 90–95
[2022-08-24 05:49] LABS: VBG Base Excess 13.2 mmol/L; VBG HCO3 36 mmol/L (22-26); VBG pCO2 38 mmHg; VBG pH 7.58 (7.32-7.43); VBG pO2 50 mmHg
[2022-08-24 05:52] LABS: MANUAL DIFF FLAG NO
[2022-08-24 05:57] LABS: Basophils Percent Auto 0.2 % (0-2); Eosinophils Percent Auto 0.9 % (0-4); Hematocrit 45.3 % (42.0-52.0); Imm Gran Abs Auto 0.01 X10*3/uL (0.00-0.03); Imm Gran Pct Auto 0.2 % (0.0-0.4); Lymphocytes Percent Auto 22.3 % (20-40); Mean Corpuscular HGB Conc 33.1 g/dl (31.0-36.0); Mean Corpuscular Hemoglobin 31.1 pg (27.0-33.0); Mean Corpuscular Volume 93.8 fL (80.0-98.0); Mean Platelet Volume 9.8 fL (9.4-12.4); Monocytes Absolute Auto 0.4 X10*3/uL (0.1-1.2); Monocytes Percent Auto 9.1 % (2-11); Neutrophils Percent Auto 67.3 % (45-73); Platelet Count 197 X10*3/uL (160-400); Red Blood Count 4.83 X10*6/uL (4.60-5.80); Red Cell Distribution Width 14.9 % (11.0-16.0); White Blood Count 4.5 X10*3/uL (4.8-10.8)
[2022-08-24] MEDS: Heparin Sodium,Porcine 5,000 UNIT/ML VIAL 5000 UNIT SUBCUT ×3 (06:07→22:10)
[2022-08-24 06:17] LABS: Albumin Level 3.4 g/dL (3.5-5.0); Anion Gap 19 (12-20); Blood Urea Nitrogen 23 mg/dL (9-16); Calcium 8.9 mg/dL (8.4-10.2); Carbon Dioxide 31 mmol/L (22-29); Chloride 97 mmol/L (96-108); Creatinine Clr Calc Pharmacy 67.5; Estimated Glomerular Filt Rate > 60; Glucose Random 73 mg/dL (60-115); Magnesium 2.1 mg/dL (1.6-2.6); Phosphorus 3.9 mg/dL (2.7-4.5); Potassium 4.6 mmol/L (3.3-5.1); Sodium 142 mmol/L (135-145)
[2022-08-24 06:48] LABS: Venous Blood Gas Refer to POC result
[2022-08-24 06:50] LABS: ABG Refer to POC result
[2022-08-24] MEDS: Furosemide 40 MG/4 ML VIAL IVPUSH ×2 (09:03→19:06)
[2022-08-24] MEDS: Divalproex Sodium ER 500 MG TAB.ER.24H 1000 MG PO (11:14)
[2022-08-24] MEDS: Amiodarone HCL 200 MG TABLET PO (11:14)
--- NOTE | 2022-08-24 14:29 | MHC.CM.PN ---
Pt remains in ICU making slow clinical gains. Updates sent to [facility] pt is a L[facility] resident. His legal guardian Bethanie Blackmon is aware of pt's condition and d/c plan. CM to follow.
--- NOTE | 2022-08-24 21:11 | PC.RT ---
Pt refusing Bipap at this time; RN aware. RT to return and assess
[2022-08-25] VITALS (7 sets, daily range): BP systolic 115–134; BP diastolic 63–77; PULSE 57–61; RESP 17–26; TEMP 36.1–37.1; O2SAT 90–99; BMI 24.7
[2022-08-25] MEDS: Heparin Sodium,Porcine 5,000 UNIT/ML VIAL 5000 UNIT SUBCUT ×3 (05:21→21:30)
[2022-08-25] MEDS: Furosemide 40 MG/4 ML VIAL IVPUSH ×2 (09:37→17:40)
--- NOTE | 2022-08-25 14:27 | P.PNIM_ITS ---
Subjective Subjective Date of Service: 08/24/22 Interval History: Require BiPAP overnight. Otherwise over baseline Review of Systems Unable to obtain Physical Exam Vital Signs: Vital Signs: Last Vital Signs Temp 97.3 F 08/25/22 12:00 Pulse 57 08/25/22 12:00 Resp 17 08/25/22 12:00 BP 129/63 08/25/22 12:00 Pulse Ox 96 08/25/22 12:00 O2 Del Method Nasal Cannula 08/25/22 12:00 O2 Flow Rate 2 08/25/22 12:00 FiO2 24 08/25/22 03:22 Oxygen Flow Rate 12 08/22/22 19:41 BMI result Body Mass Index 24.7 Const: Other: Awake nonverbal Resp: Other: Diminished at bases with scant crackles heard bilaterally Cardio: Other: No S4; positive S1-S2; no S3 murmurs rubs or gallops GI: Other: Soft nontender nondistended normoactive bowel sounds Extrem: Other: 1+ pitting edema bilaterally Objective Data Active Medications Amiodarone HCl (Amiodarone Hcl 200 Mg Tablet) 200 mg PO DAILY [facility] Last Admin: 08/25/22 11:17 Dose: Not Given Documented By: DIMA Non-Admin Reason: NPO Divalproex Sodium (Divalproex Sodium Er 500 Mg Tab.Er.24h) 1,000 mg PO DAILY [facility] Last Admin: 08/25/22 09:37 Dose: Not Given Documented By: DIMA Non-Admin Reason: NPO Furosemide (Furosemide 40 Mg/4 Ml Vial) 40 mg IVPUSH BID@0900,1800 [facility]; Protocol Last Admin: 08/25/22 09:37 Dose: 40 mg Documented By: DIMA Heparin Sodium (Porcine) (Heparin Sodium,Porcine 5,000 Unit/Ml Vial) 5,000 unit SUBCUT Q8H [facility] Last Admin: 08/25/22 05:21 Dose: 5,000 unit Documented By: NAZ Labs 08/24/22 05:44 08/24/22 05:44 Microbiology Microbiology Results: Microbiology 08/22/22 19:46 Blood Culture - Preliminary Blood - Venous No growth after 48 hours. 08/22/22 19:46 Blood Culture - Preliminary Blood - Venous No growth after 48 hours. Assessment and Plan (1) Acute on chronic systolic CHF (congestive heart failure), NYHA class 4: Status: Acute (2) Respiratory failure with hypoxia and hypercapnia: Status: Acute (3) Acute kidney injury: Status: Acute (4) Ventricular tachycardia: Status: Acute Plan 76-year-old male well known to me from [facility] with a history of ischemic cardiomyopathy on amiodarone COPD hepatitis seizure disorder traumatic brain injury presents with decreased sats and hypercapnic respiratory failure which was bonded to BiPAP. Current [place] stable requiring overnight BiPAP 1. Acute on chronic systolic CHF -echocardiogram 08/08/2022 demonstrates a severely decreased systolic ejection fraction of 10% -medical management only. . . Code status in process of being changed through court system -believe resuscitation to be futile; would be harmful to patient without inge nging longevity or prognosis -will maintain BiPAP overnight 2. Respiratory failure with hypoxia and hypercapnia -nocturnal BiPAP -supplemental O2 as indicated 3. SAGE -likely secondary to hypoperfusion. . . Resolved -follow renals/divalents 4.VTach(by Hx) -amiodarone as ordered Full code Heparin Requires ongoing hospitalization to continue to treat acute CHF with IV diuresis Time Spent With Patient Time: Total time managing care of this patient today ____ minutes. Quality Stroke Does the patient have a stroke diagnosis?: No VTE Prior VTE?: No VTE Risk Level:: Medical - moderate - high VTE Device Contraindication: N/A - Device Ordered VTE Drug Contraindication: N/A - Med Ordered
--- NOTE | 2022-08-25 14:39 | P.PNIM_ITS ---
Subjective Subjective Date of Service: 08/26/22 Interval History: Essentially no changes overnight. Tolerant of BiPAP Review of Systems Unable to obtain Physical Exam Vital Signs: Vital Signs: Last Vital Signs Temp 97.3 F 08/25/22 12:00 Pulse 57 08/25/22 12:00 Resp 17 08/25/22 12:00 BP 129/63 08/25/22 12:00 Pulse Ox 96 08/25/22 12:00 O2 Del Method Nasal Cannula 08/25/22 12:00 O2 Flow Rate 2 08/25/22 12:00 FiO2 24 08/25/22 03:22 Oxygen Flow Rate 12 08/22/22 19:41 BMI result Body Mass Index 24.7 Const: Other: Awake nonverbal Resp: Other: Diminished at bases with scant crackles heard bilaterally Cardio: Other: No S4; positive S1-S2; no S3 murmurs rubs or gallops GI: Other: Soft nontender nondistended normoactive bowel sounds Extrem: Other: 1+ pitting edema bilaterally Objective Data Active Medications Amiodarone HCl (Amiodarone Hcl 200 Mg Tablet) 200 mg PO DAILY [facility] Last Admin: 08/25/22 11:17 Dose: Not Given Documented By: DIMA Non-Admin Reason: NPO Divalproex Sodium (Divalproex Sodium Er 500 Mg Tab.Er.24h) 1,000 mg PO DAILY [facility] Last Admin: 08/25/22 09:37 Dose: Not Given Documented By: DIMA Non-Admin Reason: NPO Furosemide (Furosemide 40 Mg/4 Ml Vial) 40 mg IVPUSH BID@0900,1800 [facility]; Protocol Last Admin: 08/25/22 09:37 Dose: 40 mg Documented By: DIMA Heparin Sodium (Porcine) (Heparin Sodium,Porcine 5,000 Unit/Ml Vial) 5,000 unit SUBCUT Q8H [facility] Last Admin: 08/25/22 05:21 Dose: 5,000 unit Documented By: NAZ Labs 08/24/22 05:44 08/24/22 05:44 Microbiology Microbiology Results: Microbiology 08/22/22 19:46 Blood Culture - Preliminary Blood - Venous No growth after 48 hours. 08/22/22 19:46 Blood Culture - Preliminary Blood - Venous No growth after 48 hours. Assessment and Plan (1) Acute on chronic systolic CHF (congestive heart failure), NYHA class 4: Status: Acute (2) Acute kidney injury: Status: Acute (3) Dementia: Status: Acute Plan 76-year-old male well known to me from [facility] with a history of ischemic cardiomyopathy on amiodarone COPD hepatitis seizure disorder traumatic brain injury presents with decreased sats and hypercapnic respiratory failure which was bonded to BiPAP. Current Naomy stable requiring overnight BiPAP 1. Acute on chronic systolic CHF -echocardiogram 08/08/2022 demonstrates a severely decreased systolic ejection fraction of 10% -medical management only. . . Code status in process of being changed through court system -believe resuscitation to be futile; would be harmful to patient without changing longevity or prognosis -will maintain BiPAP overnight 2. Respiratory failure with hypoxia and hypercapnia -nocturnal BiPAP -supplemental O2 as indicated 3. SAGE -likely secondary to hypoperfusion. . . Resolved -follow renals/divalents 4.VTach(by Hx) -amiodarone as ordered Full code Heparin Requires ongoing hospitalization to continue to treat acute CHF with IV diuresis Time Spent With Patient Time: Total time managing care of this patient today ____ minutes. Quality Stroke Does the patient have a stroke diagnosis?: No VTE Prior VTE?: No VTE Risk Level:: Medical - moderate - high VTE Device Contraindication: N/A - Device Ordered VTE Drug Contraindication: N/A - Med Ordered
[2022-08-26] VITALS (9 sets, daily range): BP systolic 122–149; BP diastolic 66–84; PULSE 58–66; RESP 15–24; TEMP 36.1–36.4; O2SAT 92–99; BMI 25.6
[2022-08-26] MEDS: Heparin Sodium,Porcine 5,000 UNIT/ML VIAL 5000 UNIT SUBCUT ×3 (05:35→21:47)
[2022-08-26] MEDS: Furosemide 40 MG/4 ML VIAL IVPUSH (09:09)
[2022-08-26] MEDS: Amiodarone HCL 200 MG TABLET PO (09:09)
[2022-08-26] MEDS: Lactated Ringers 1,000 ML 100 ML IVCONT (16:08)
[2022-08-26] MEDS: Sennosides 8.6 MG TABLET PO (21:47)
[2022-08-26] MEDS: carvediloL 3.125 MG TABLET PO (21:47)
[2022-08-27] VITALS (7 sets, daily range): BP systolic 115–137; BP diastolic 65–76; PULSE 53–68; RESP 17–34; TEMP 36–36.6; O2SAT 93–98; BMI 26.2
[2022-08-27] MEDS: Lactated Ringers 1,000 ML 100 ML IVCONT (02:12)
[2022-08-27] MEDS: Heparin Sodium,Porcine 5,000 UNIT/ML VIAL 5000 UNIT SUBCUT ×3 (06:07→21:22)
[2022-08-27] MEDS: Amiodarone HCL 200 MG TABLET PO (10:08)
[2022-08-27] MEDS: Sennosides 8.6 MG TABLET PO ×2 (10:08→21:22)
[2022-08-27] MEDS: Divalproex Sodium Sprinkles 125 MG CAP.DR.SPR 1000 MG PO (10:08)
[2022-08-27] MEDS: Aspirin Enteric Coated 81 MG TABLET.DR PO (10:08)
[2022-08-27] MEDS: Bicalutamide 50 MG TABLET PO (10:08)
[2022-08-27] MEDS: Doxycycline Monohydrate 100 MG CAPSULE PO (10:08)
[2022-08-27] MEDS: Furosemide 20 MG TABLET PO (10:10)
--- NOTE | 2022-08-27 12:38 | HO.PM.IMPN ---
Subjective Subjective Date of Service: 08/27/22 Interval History: Patient nonverbal at baseline, resident of [facility] in [place], patient was initially admitted to ICU for hypoxia with finger oximetry 80% on room air patient was hypotensive, initial pH was 7.25, pCO2 75, PO2 of 215 and bicarb 33, and dopamine drip patient was subsequently admitted to intensive care unit, after patient was stabilized he was sent to intermediate care unit, where he continue to require BiPAP, At present patient is NPO receiving IV fluids and IV Lasix. Review of Systems Unable to obtain review of systems since patient is nonverbal. Physical Exam Vital Signs: Vital Signs: Last Vital Signs Temp 97.2 F 08/27/22 11:49 Pulse 58 08/27/22 11:49 Resp 20 08/27/22 11:49 BP 125/70 08/27/22 11:49 Pulse Ox 96 08/27/22 11:49 O2 Del Method Nasal Cannula 08/27/22 11:49 O2 Flow Rate 3 08/27/22 11:49 FiO2 30 08/26/22 07:28 Oxygen Flow Rate 12 08/22/22 19:41 BMI result Body Mass Index 26.2 Const: Other: General nonverbal, no acute distress follow commands. Mouth dry mucous membranes Neck , supple no JVD. CVS regular rate rhythm, Respiratory lungs clear to auscultation, no respiratory distress, few basilar dry crackles and diminished breath sounds Gastrointestinal abdomen soft, nontender, bowel sounds audible, no guarding , no rigidity. Extremities no edema. Neuro nonfocal , moving all 4 extremity Skin no rash Objective Data Active Medications Al Hydroxide/Mg Hydroxide (Magnesium Hydrox/Alum Hydrox 30 Ml Oral.Susp) 20 ml PO Q4H PRN PRN Reason: Dyspepsia Amiodarone HCl (Amiodarone Hcl 200 Mg Tablet) 200 mg PO DAILY [facility] Last Admin: 08/27/22 10:08 Dose: 200 mg Documented By: SIXTO Aspirin (Aspirin Enteric Coated 81 Mg Tablet.) 81 mg PO DAILY [facility] Last Admin: 08/27/22 10:08 Dose: 81 mg Documented By: SIXTO Bicalutamide (Bicalutamide 50 Mg Tablet) 50 mg PO DAILY [facility] Last Admin: 08/27/22 10:08 Dose: 50 mg Documented By: SIXTO Bisacodyl (Bisacodyl 10 Mg Supp.Rect) 10 mg MN DAILY PRN PRN Reason: Constipation Carvedilol (Carvedilol 3.125 Mg Tablet) 3.125 mg PO BID [facility]; Protocol Last Admin: 08/27/22 10:08 Dose: Not Given Documented By: SIXTO Non-Admin Reason: Decreased Heart Rate Divalproex Sodium (Divalproex Sodium Sprinkles 125 Mg ) 1,000 mg PO DAILY [facility] Last Admin: 08/27/22 10:08 Dose: 1,000 mg Documented By: SIXTO Doxycycline Monohydrate (Doxycycline Monohydrate 100 Mg Capsule) 100 mg PO DAILY [facility] Last Admin: 08/27/22 10:08 Dose: 100 mg Documented By: SIXTO Furosemide (Furosemide 20 Mg Tablet) 20 mg PO DAILY [facility]; Protocol Last Admin: 08/27/22 10:10 Dose: 20 mg Documented By: SIXTO Guaifenesin (Guaifenesin 100 Mg/5 Ml Liquid) 10 ml PO Q6H PRN PRN Reason: Cough Heparin Sodium (Porcine) (Heparin Sodium,Porcine 5,000 Unit/Ml Vial) 5,000 unit SUBCUT Q8H [facility] Last Admin: 08/27/22 06:07 Dose: 5,000 unit Documented By: MURTAZA Lactulose (Lactulose 20 Gm/30 Ml Solution) 20 gm PO TID PRN PRN Reason: constipation Lorazepam (Lorazepam 2 Mg/Ml Vial) 1 mg IM Q5M PRN PRN Reason: Seizure Activity Omeprazole (Omeprazole 20 Mg Laura.) 20 mg PO DAILY@0630 [facility] Last Admin: 08/27/22 06:07 Dose: Not Given Documented By: MURTAZA Non-Admin Reason: NPO Senna (Sennosides 8.6 Mg Tablet) 8.6 mg PO BID [facility] Last Admin: 08/27/22 10:08 Dose: 8.6 mg Documented By: SIXTO Senna (Sennosides 8.6 Mg Tablet) 8.6 mg PO DAILY PRN PRN Reason: Constipation Sodium Biphosphate/Sodium Phosphate (Sodium Phosphate,[place]-Dibasic 133 Ml Enema) 118 ml MN DAILY PRN PRN Reason: Constipation Labs 08/24/22 05:44 08/24/22 05:44 Assessment and Plan (1) Acute on chronic systolic CHF (congestive heart failure), NYHA class 4: Status: Acute (2) Acute kidney injury: Status: Acute (3) Dementia: Status: Acute Plan 76-year-old male well known to me from [facility] with a history of ischemic cardiomyopathy on amiodarone COPD hepatitis seizure disorder traumatic brain injury presents with decreased sats and hypercapnic respiratory failure which was bonded to BiPAP. Current Naomy stable requiring overnight BiPAP 1. Acute on chronic systolic CHF -echocardiogram 08/08/2022 demonstrates a severely decreased systolic ejection fraction of 10% -medical management only. . . Code status in process of being changed through court system -continue BiPAP at night -elevated BNP will follow BMP and BNP -appears euvolemic will DC IV fluid and continue by mouth Lasix , Coreg 2. Acute on chronic Respiratory failure with hypoxia and hypercapnia -continue nocturnal BiPAP, arrangements are being made for BiPAP at [facility] -chest x-ray showed small bilateral pleural effusion and atelectasis no consolidation, right IJ, no pneumothorax -on doxycycline 50mg daily at baseline -supplemental O2 as indicated 3. history of seizure -- continue home meds 4.VTach(by Hx) -continue amiodarone 5. Stage I sacral coccygeal ulcer continue position change in bed area cream 6. Acute toxic metabolic encephalopathy due to hypercarbia resolved seems to be at baseline. Full code Heparin Requires ongoing hospitalization to continue to treat acute CHF with IV diuresis Time Spent With Patient Time: Total time managing care of this patient today ____ minutes. Quality Stroke Does the patient have a stroke diagnosis?: No VTE Prior VTE?: No VTE Risk Level:: Medical - moderate - high VTE Device Contraindication: N/A - Device Ordered VTE Drug Contraindication: N/A - Med Ordered
[2022-08-28] VITALS (11 sets, daily range): BP systolic 107–145; BP diastolic 62–80; PULSE 55–85; RESP 16–25; TEMP 36–36.6; O2SAT 94–97; BMI 26.6
[2022-08-28] MEDS: Heparin Sodium,Porcine 5,000 UNIT/ML VIAL 5000 UNIT SUBCUT ×3 (05:53→21:36)
[2022-08-28] MEDS: Omeprazole 20 MG CAPSULE.DR PO (05:54)
[2022-08-28 07:20] LABS: B Type Natriuretic Peptide 257 pg/mL (<100)
[2022-08-28 08:10] LABS: Anion Gap 14 (12-20); Blood Urea Nitrogen 39 mg/dL (9-16); Calcium 9.1 mg/dL (8.4-10.2); Carbon Dioxide 33 mmol/L (22-29); Chloride 105 mmol/L (96-108); Creatinine Clr Calc Pharmacy 73.9; Estimated Glomerular Filt Rate > 60; Glucose Random 86 mg/dL (60-115); Sodium 148 mmol/L (135-145)
[2022-08-28] MEDS: Doxycycline Monohydrate 100 MG CAPSULE PO (09:14)
[2022-08-28] MEDS: Aspirin Enteric Coated 81 MG TABLET.DR PO (09:14)
[2022-08-28] MEDS: Sennosides 8.6 MG TABLET PO ×2 (09:14→21:36)
[2022-08-28] MEDS: Divalproex Sodium Sprinkles 125 MG CAP.DR.SPR 1000 MG PO (09:14)
[2022-08-28] MEDS: Furosemide 20 MG TABLET PO (09:14)
[2022-08-28] MEDS: carvediloL 3.125 MG TABLET PO ×2 (09:15→21:35)
[2022-08-28] MEDS: Amiodarone HCL 200 MG TABLET PO (09:15)
[2022-08-28] MEDS: Bicalutamide 50 MG TABLET PO (09:15)
--- NOTE | 2022-08-28 11:08 | MHC.CM.PN ---
CM relayed Bipap settings(03/05 & 30%) to Corry @ [facility] @ [facility] @ [phone].
--- NOTE | 2022-08-28 12:46 | MHC.CM.PN ---
Patient has been medically cleared for dc to return to LTC today. Patient will return to LTC @ [facility] today at 3PM, via [facility]. JOSE spoke with Guardian/Bethanie @ [phone] and addressed IMM with her (original will be mailed to Bethanie and a copy has been placed on the chart).
--- NOTE | 2022-08-28 13:29 | MHC.CM.PN ---
Scheduled dc for today has been canceled until [facility] can confirm that Patient's new Bipap has been delivered to the SNF and is available to the Patient. Guardian has been notified of this change.
[2022-08-28 13:40] LABS: COVID-19 Test Negative (Negative); IDNOW Serial# 08D9AD1C
--- NOTE | 2022-08-28 16:34 | P.PNIM_ITS ---
Subjective Subjective Date of Service: 08/28/22 Interval History: History obtained via psychiatric mental health nurse Patient is nonverbal but understand questions and answers appropriately by nodding, no acute issues overnight tolerating diet oxygenation is stable 96% on 2 L, no acute events overnight, no nausea, no vomiting, no abdominal pain or diarrhea, no shortness of breath, no cough, vitals are stable. Review of Systems All other system reviewed and negative. Physical Exam Vital Signs: Vital Signs: Last Vital Signs Temp 96.9 F 08/28/22 15:14 Pulse 56 08/28/22 15:14 Resp 17 08/28/22 15:14 BP 109/73 08/28/22 15:14 Pulse Ox 96 08/28/22 15:14 O2 Del Method Nasal Cannula 08/28/22 15:14 O2 Flow Rate 2 08/28/22 12:00 FiO2 30 08/26/22 07:28 Oxygen Flow Rate 12 08/22/22 19:41 BMI result Body Mass Index 26.6 Const: Other: General nonverbal, no acute distress follow commands. Neck , supple no J VD. CVS? regular r ate rhythm, Respir atory lungs clear to auscultation, n o respiratory dist ress, no crackles Gastrointestinal abdomen soft, nont brigid, bowel sound s audible, no guar ding , no rigidity . Extremities no e shonna. Neuro non fo baldomero , moving all 4 extremity Skin no rash Objective Data Active Medications Al Hydroxide/Mg Hydroxide (Magnesium Hydrox/Alum Hydrox 30 Ml Oral.Susp) 20 ml PO Q4H PRN PRN Reason: Dyspepsia Amiodarone HCl (Amiodarone Hcl 200 Mg Tablet) 200 mg PO DAILY [facility] Last Admin: 08/28/22 09:15 Dose: 200 mg Documented By: HERNANDEZ Aspirin (Aspirin Enteric Coated 81 Mg Tablet.) 81 mg PO DAILY [facility] Last Admin: 08/28/22 09:14 Dose: 81 mg Documented By: HERNANDEZ Bicalutamide (Bicalutamide 50 Mg Tablet) 50 mg PO DAILY [facility] Last Admin: 08/28/22 09:15 Dose: 50 mg Documented By: HERNANDEZ Bisacodyl (Bisacodyl 10 Mg Supp.Rect) 10 mg AL DAILY PRN PRN Reason: Constipation Carvedilol (Carvedilol 3.125 Mg Tablet) 3.125 mg PO BID [facility]; Protocol Last Admin: 08/28/22 09:15 Dose: 3.125 mg Documented By: HERNANDEZ Divalproex Sodium (Divalproex Sodium Sprinkles 125 Mg Cap.) 1,000 mg PO DAILY [facility] Last Admin: 08/28/22 09:14 Dose: 1,000 mg Documented By: HERNANDEZ Doxycycline Monohydrate (Doxycycline Monohydrate 100 Mg Capsule) 100 mg PO DAILY [facility] Last Admin: 08/28/22 09:14 Dose: 100 mg Documented By: HERNANDEZ Furosemide (Furosemide 20 Mg Tablet) 20 mg PO DAILY [facility]; Protocol Last Admin: 08/28/22 09:14 Dose: 20 mg Documented By: HERNANDEZ Guaifenesin (Guaifenesin 100 Mg/5 Ml Liquid) 10 ml PO Q6H PRN PRN Reason: Cough Heparin Sodium (Porcine) (Heparin Sodium,Porcine 5,000 Unit/Ml Vial) 5,000 unit SUBCUT Q8H [facility] Last Admin: 08/28/22 15:35 Dose: 5,000 unit Documented By: HERNANDEZ Lactulose (Lactulose 20 Gm/30 Ml Solution) 20 gm PO TID PRN PRN Reason: constipation Lorazepam (Lorazepam 2 Mg/Ml Vial) 1 mg IM Q5M PRN PRN Reason: Seizure Activity Omeprazole (Omeprazole 20 Mg Laura.) 20 mg PO DAILY@0630 [facility] Last Admin: 08/28/22 05:54 Dose: 20 mg Documented By: POOJA Senna (Sennosides 8.6 Mg Tablet) 8.6 mg PO BID [facility] Last Admin: 08/28/22 09:14 Dose: 8.6 mg Documented By: HERNANDEZ Senna (Sennosides 8.6 Mg Tablet) 8.6 mg PO DAILY PRN PRN Reason: Constipation Sodium Biphosphate/Sodium Phosphate (Sodium Phosphate,[place]-Dibasic 133 Ml Enema) 118 ml AL DAILY PRN PRN Reason: Constipation Labs 08/24/22 05:44 08/28/22 07:30 Labs: Laboratory Results - last 24 hr 08/28/22 08/28/22 08/28/22 06:34 07:30 13:07 Anion Gap 14 Estim Creat Clear Calc 73.9 Estimated GFR > 60 Random Glucose 86 Calcium 9.1 B-Natriuretic Peptide 257 H COVID-19 ([facility]) Negative COVID-19 Clin Com See Note Microbiology Microbiology Results: Microbiology 08/22/22 19:46 Blood Culture - Preliminary Blood - Venous Prelim: GPR Gram Stain only 08/22/22 19:46 Blood Culture - Final Blood - Venous No growth after 5 days. Assessment and Plan (1) Acute on chronic systolic CHF (congestive heart failure), NYHA class 4: Status: Acute (2) Acute kidney injury: Status: Acute (3) Dementia: Status: Acute Plan 76-year-old male well known to me from [facility] with a history of ischemic cardiomyopathy on amiodarone COPD hepatitis seizure disorder traumatic brain injury presents with decreased sats and hypercapnic respiratory failure which responded to BiPAP. Currently stable requiring overnight BiPAP. 1. Acute on chronic systolic CHF No acute exacerbation, no shortness of breath no edema, no JVD -echocardiogram 08/08/2022 demonstrates a severely decreased systolic ejection fraction of 10% -medical management only. . . Code status in process of being changed through court system -continue BiPAP at night -BNP improved from to [id number], stable BMP -appears euvolemic continue by mouth Lasix , Coreg 2. Acute on chronic Respiratory failure with hypoxia and hypercapnia -continue nocturnal BiPAP, arrangements are being made for BiPAP at [facility] -chest x-ray showed small bilateral pleural effusion and atelectasis no consolidation, right IJ, no pneumothorax -on doxycycline 100 mg daily at baseline -supplemental O2 as indicated 3. history of seizure -- continue home meds 4.VTach(by Hx) -continue amiodarone 5. Stage I sacral coccygeal ulcer continue position change,barrier cream he 6. Acute toxic metabolic encephalopathy due to hypercarbia resolved seems to be at baseline. Full code Heparin Requires ongoing hospitalization for BiPAP which is being arranged at [facility]. Time Spent With Patient Time: Total time managing care of this patient today ____ minutes. Quality Stroke Does the patient have a stroke diagnosis?: No VTE Prior VTE?: No VTE Risk Level:: Medical - moderate - high VTE Device Contraindication: N/A - Device Ordered VTE Drug Contraindication: N/A - Med Ordered
[2022-08-29 03:44] VITALS: BP 112/67; PULSE 65; RESP 18; TEMP 36.3; O2SAT 96
[2022-08-29 04:53] VITALS: PULSE 75; RESP 19; O2SAT 96
[2022-08-29] MEDS: Heparin Sodium,Porcine 5,000 UNIT/ML VIAL 5000 UNIT SUBCUT (05:51)
[2022-08-29] MEDS: Omeprazole 20 MG CAPSULE.DR PO (05:51)
[2022-08-29 05:53] VITALS: BMI 25.9
[2022-08-29 08:00] VITALS: BP 112/60; PULSE 58; RESP 20; TEMP 36.4; O2SAT 98
--- NOTE | 2022-08-29 08:44 | MHC.CM.PN ---
[facility] has confirmed that Bipap is now available for Patient at the SNF. Patient will dc back to [facility] today at 10AM via [facility]. IMM addressed yesterday. Guardian notified of new dc day/time.
[2022-08-29] MEDS: Furosemide 20 MG TABLET PO (09:50)
[2022-08-29] MEDS: Doxycycline Monohydrate 100 MG CAPSULE PO (09:50)
[2022-08-29] MEDS: carvediloL 3.125 MG TABLET PO (09:51)
[2022-08-29] MEDS: Aspirin Enteric Coated 81 MG TABLET.DR PO (09:51)
[2022-08-29] MEDS: Bicalutamide 50 MG TABLET PO (09:51)
[2022-08-29] MEDS: Amiodarone HCL 200 MG TABLET PO (09:51)
[2022-08-29] MEDS: Sennosides 8.6 MG TABLET PO (09:51)
[2022-08-29] MEDS: Divalproex Sodium Sprinkles 125 MG CAP.DR.SPR 1000 MG PO (09:51)
[2022-08-29 10:34] LABS: Anion Gap 14 (12-20); Carbon Dioxide 36 mmol/L (22-29); Chloride 101 mmol/L (96-108); Potassium 3.6 mmol/L (3.3-5.1); Sodium 147 mmol/L (135-145)
--- NOTE | 2022-08-29 10:38 | PM.DS ---
DS: Providers Provider Date of Service: 08/29/22 Date of admission: 08/23/22 05:02 Primary care physician: Richard Castillo DO Consults: 08/23/22 08:38 Consult to Cardiology Routine Consulting Provider: [facility] Cardiovascular Services Reason for consultation: Acute on chronic heart failure Has provider been notified: Yes DS: Diagnosis Discharge Diagnosis (1) Acute on chronic systolic CHF (congestive heart failure), NYHA class 4: Status: Acute (2) Acute kidney injury: Status: Acute (3) Dementia: Status: Acute DS: Summary Hospital Course Hospital Course: History of presenting illness: Chief Complaint: Hypercarbic respiratory failure /CHF/oxygen poisoning HPI: ?76-year-old patient who is a [facility] resident and reportedly was admitted to these ICU about a week ago ? Due to V-tach status post cardioversion and amiodarone along with elevated troponins thought to be secondary to myocardial ischemia in the setting of underlying ischemic cardiomyopathy (records not available due to system downtime), per [facility] report has underlying history of dementia in the setting of alcohol abuse, cardiomegaly, chronic COPD, chronic hepatitis, epilepsy, cardiogenic shock, cervicalgia, coronary disease and ischemic cardiomyopathy with unknown details, generalized muscle ?weakness, prostate cancer, history of COVID, schizophrenia, type 2 diabetes, depression, metabolic encephalopathy, speech impairment, pressure wounds of the left buttock, lumbar stenosis, spondylolisthesis, rotator cuff tear, chronic systolic congestive Heart failure, dysphagia, hypertension, osteoarthritis, unsteady gait, V-tach among multiple other things, had presented to the emergency room as nursing personnel noted that the patient seemed to be out of breath and his O2 sat was 80% room air.? On initial EMS evaluation, the patient was normotensive with blood pressure 117/67, heart rate of 51, temperature 97.1 degrees and satting 98% on room air he had however been noted to be cold, clammy and sweaty with labor and rapid breathing had mentioned some chest tightness. ? Patient was seen in the emergency room, again initially normotensive but eventually became hypotensive in part because he did receive Lasix given the suspicion of fluid overload. ?Initial ABG shows pH of 7.25, pCO2 75, PO2 215 HC03 33 around 20:00 o'clock, the patient had been placed on BiPAP at 14/7 with FiO2 of 60% rate of 12.? O2 sat 100%.? Had been taken off BiPAP and about an hour and a half later he was taken off it, blood gas was repeated and it showed recurrent hypercarbia as he had been placed on a mask; repeat ABG pH 7.36, pCO2 64, PO2 78, HC03 37. they were concerned the patient mental status may be worsening, Ativan and Benadryl has been ordered but they were not administer upon request. ?Chest x-ray showed linear streaky opacities a bibasilar atelectasis without overt consolidation, mild thickening of the airway john or peribronchial interstitium which may represent mild pulmonary edema versus inflammatory thickening of bronchial john.? Given a D-dimer of 626, hypoxia a Chest CT angiogram shows no evidence of pulmonary emboli, bibasilar atelectasis with trace pleural effusions. ?Troponin is 28.? Sodium 137, potassium 5.2, chloride 96, carbon dioxide 27, anion gap 19, BUN 14, creatinine 0.87, GFR more than 60, random glucose 260, calcium 9.3, BNP 1973.? COVID negative. ? During my exam the patient appeared to be verbally arousable, responds to my commands in Malagasy including opening his eyes and grabbing my hand upon request, he does not appear to have any accessory muscle usage, appears to be in mild distress, somewhat somnolent.? Unable to answer questions. Hospital course: 76-year-old male well known to us from [facility] with a history of ischemic cardiomyopathy on amiodarone COPD hepatitis seizure disorder traumatic brain injury presents with decreased sats and hypercapnic respiratory failure which responded to BiPAP.? Currently stable requiring overnight BiPAP. 1. Acute on chronic systolic CHF resolved initially patient treated with IV Lasix in intensive care unit and BiPAP with complete resolution of shortness of breath and hypoxia, patient had no further symptoms of shortness of breath Remains hemodynamically stable with no leg edema, no JVD,echocardiogram 08/08/2022 demonstrates a severely decreased systolic ejection fraction of 10%, evaluated by Cardiology and is being medically managed recommend to continue BiPAP at nighttime, and continue Coreg and Lasix, noted to have mild hypernatremia and alkalosis, hold Lasix x 24 hours and recheck BMP in 24 hrs. 2. Acute on chronic Respiratory failure with hypoxia and hypercapnia -continue nocturnal BiPAP, arrangements are being made for BiPAP at [facility], chest x-ray showed small bilateral pleural effusion and atelectasis no consolidation, on doxycycline 50 mg daily at baseline -supplemental O2 as indicated 3. history of seizure -- continue home meds 4.VTach(by Hx) continue amiodarone 5. Stage I sacral coccygeal ulcer continue position change,barrier cream. 6. Acute toxic metabolic encephalopathy due to hypercarbia resolved seems to be at baseline. ? Time Spent with Patient Time attestation: Total time managing care of this patient today ____ minutes. Discharge coordination time: Greater than 30 minutes Quality: Safe Use of Opioids Does Pt have an Active Cancer Diagnosis on the Problem List?: No Quality: Stroke Does the patient have a stroke diagnosis?: No Physical Exam Vital Signs: Vital Signs: Last Vital Signs Temp 97.5 F 08/29/22 08:00 Pulse 58 08/29/22 08:00 Resp 20 08/29/22 08:00 BP 112/60 08/29/22 08:00 Pulse Ox 98 08/29/22 08:00 O2 Del Method Nasal Cannula 08/29/22 08:00 O2 Flow Rate 2 08/29/22 08:00 FiO2 30 08/29/22 03:44 Oxygen Flow Rate 12 08/22/22 19:41 BMI result Body Mass Index 25.9 Const: Other: General nonverbal, no acute distress follow commands. Mouth dry mucous m embranes Neck , frye pple no JVD. CVS? regular rate rhyth m, Respiratory rigoberto gs clear to auscul tation, no respira tory distress, few basilar dry crack les and diminished breath sounds Gas trointestinal abdo men soft, nontende r, bowel sounds au dible, no guarding , no rigidity. Ex tremities no edema . Neuro nonfocal , moving all 4 extr emity Skin no rash DS: Data Data Completed and Pending Completed studies during hospitalization [Text1]: Procedures Assistance with Respiratory Ventilation, Less than 24 Consecutive Hours, Continuous Positive Airway Pressure (08/08/22) Insertion of Infusion Device into Superior Vena Cava, Percutaneous Approach (08/08/22) Hindu of Cardiac Rhythm, Single (08/08/22) Ultrasonography of Superior Vena Cava, Guidance (08/08/22) Labs on day of discharge: Laboratory Results - last 24 hr 08/28/22 08/29/22 13:07 09:08 Sodium 147 H Potassium 3.6 Chloride 101 Carbon Dioxide 36 H Anion Gap 14 COVID-19 (COLIN) Negative COVID-19 Clin Com See Note Preliminary micro results at discharge 08/22/22 19:46 Blood Culture - Preliminary Blood - Venous Prelim: GPR Gram Stain only Discharge Plan Discharge Patient Disposition: Xfer [facility] Discharge Diagnosis: Acute on chronic systolic congestive heart failure Acute on chronic respiratory failure with hypoxia and hypercapnia Referrals: [facility] [Outside] - 1 Week Richard Castillo DO [Primary Care Provider] - 1 Week Discharge Medications: Continued acetaminophen 325 mg Capsule 650 mg PO Q4H PRN (Reason: Pain) bicalutamide 50 mg Tablet 50 mg PO DAILY lorazepam [Ativan] 2 mg/mL Solution 1 mg IM Q5M PRN (Reason: Seizure Activity) Rx Instructions: may repeat Q 5 minutes x 3 omeprazole 20 mg Capsule,Delayed Release(Dr/Ec) 20 mg PO DAILY@0630 levalbuterol tartrate 45 mcg/actuation Hfa Aerosol Inhaler 2 puff INHALATION Q4H PRN (Reason: cough) sennosides [senna] 8.6 mg Tablet 8.6 mg PO DAILY PRN (Reason: Constipation) guaifenesin 100 mg/5 mL Liquid 200 mg PO Q6H PRN (Reason: Cough) Fleet Enema 19-7 gram/118 mL Enema 118 ml SD DAILY PRN (Reason: Constipation) alum-mag hydroxide-simeth 200-200-20 mg/5 mL Suspension 20 ml PO Q4H PRN (Reason: Dyspepsia) Artificial Tears (PF) 0.1-0.3 % Dropperette 1 drp OPHTHALMIC (EYE) Q8H PRN (Reason: Dry Eyes) amiodarone 200 mg tablet 200 mg PO DAILY Rx Instructions: LAST DAY OF 400MG BID: 08/23/22; THEN, 200MG DAILY sennosides [senna] 8.6 mg Tablet 8.6 mg PO BID doxycycline hyclate 50 mg capsule 50 mg PO DAILY Rx Instructions: cellulitis prophylaxis aspirin 81 mg Tablet,Delayed Release (Dr/Ec) 81 mg PO DAILY bisacodyl 10 mg Suppository 10 mg SD DAILY PRN (Reason: Constipation) levalbuterol tartrate 45 mcg/actuation HFA aerosol inhaler 2 puff inhalation BID divalproex 125 mg capsule, delayed rel sprinkle 1,000 mg PO DAILY carvedilol 3.125 mg Tablet 3.125 mg PO BID Qty: 0 0RF Protocol: Hold for SBP/HR < HOLD for SBP < : 90 HOLD for HR < : 60 lactulose 10 gram/15 mL solution 30 ml PO TID PRN (Reason: constipation) Qty: 237 0RF Held furosemide [Lasix] 20 mg Tablet 20 mg PO DAILY Hold Instructions: Resume on 08/31/22. Discharge Orders: Discharge Order (Routine); Ordered 08/29/22 Ordered By: Fred Epstein Diet: Advance to usual diet Activity on Discharge: As tolerated Stand Alone Forms: Patient Portal Discharge page Care Plan Goals: Acute on chronic hypoxic and hypercapnic respiratory failure resolved continue BiPAP at nighttime Acute congestive heart failure resolved hold Lasix tomorrow and recheck BMP at am due to mild hypernatremia and alkalosis Health Concerns: Continue all home medications as before Plan of Treatment: Outpatient follow-up with primary care physician Assessment: As above
--- NOTE | 2022-08-29 16:26 | P.CDIM_ITS ---
PROVIDER RESPONSE TEXT: To clarify, the appropriate diagnosis supported by the clinical indicators: Pressure (decubitus) ulcer QUERY TEXT: PHYSICIAN'S DOCUMENTATION REQUEST Date of Query: 08/28/2022 02:41 PM EDT Patient Name: Prateek Lee Admit Date: 08/23/2022 Dear Fred Epstein, A review of the medical record indicates additional documentation may be needed. Please review below and update the documentation accordingly. Clinical Indicators: Per Hospitalist Progress Note 08/27/22: Stage I sacral coccygeal ulcer continue position change in bed area cream Based on the above, could you please provide further information regarding the type of ulcer: Pressure (decubitus) ulcer Traumatic wound Other (explain)Clinically unable to determine (explain)Thank you, Gretchen Anderson RN Use of terms such as suspected, likely, concern for, or probable (associated with a specific diagnosi s that is being evaluated, monitored, or treated as if it exists) are acceptable and can be coded in the inpatient se tting, when documented at the time of discharge. Please use your independent medical judgment in providing your response. THIS QUERY IS PART OF THE PERMANENT MEDICAL RECORD
== END 2022-08-29 11:00 | DRG 291 ==
LOC: HO.ED 08-23 04:30 → HO.ICU 08-23 05:09 → HO.IMC 08-24 21:30
PROVIDERS: Emergency Medicine; Internal Medicine Pulmonary Disease; Physician Assistant; Admitting Provider Physician Assistant Medical; Emergency Provider Internal Medicine; PCP Hospitalist; Visit Provider Hospitalist
DX: I11.0 Hypertensive heart disease with heart failure (principal); G92.8 Other toxic encephalopathy; I50.23 Acute on chronic systolic (congestive) heart failure; J96.21 Acute and chronic respiratory failure with hypoxia; J96.22 Acute and chronic respiratory failure with hypercapnia; J44.1 Chronic obstructive pulmonary disease with (acute) exacerbation; I47.20 Ventricular tachycardia, unspecified; N17.9 Acute kidney failure, unspecified; E87.3 Alkalosis; E87.0 Hyperosmolality and hypernatremia; F03.90 Unspecified dementia, unspecified severity, without behavioral disturbance, psychotic disturbance, mood disturbance, and anxiety; L89.151 Pressure ulcer of sacral region, stage 1; G40.909 Epilepsy, unspecified, not intractable, without status epilepticus; E11.9 Type 2 diabetes mellitus without complications; Z20.822 Contact with and (suspected) exposure to COVID-19; Z79.82 Long term (current) use of aspirin; Z79.899 Other long term (current) drug therapy
CPT/HCPCS: 36415; 36600; 71045; 71275; 80048; 80051; 80053; 80164; 82040; 82140; 82803; 82947; 83605; 83735; 83880; 84100; 84484; 85025; 85379; 85610; 87040; 87076; 87205; 87635; 93005; 94660; 99284; C1758; J0282; J1265; J1610; J1643; J1940; J2270; J3010; Q9967

== ENCOUNTER 2022-09-04 05:49 | Inpatient (IN) | payer MEDICARE, MEDICAID, SELFPAY ==
[2022-09-04] VITALS (31 sets, daily range): BP systolic 76–150; BP diastolic 47–100; PULSE 52–119; RESP 12–31; TEMP 36.5–37.1; O2SAT 80–100; BMI 25.3; BMI 25.2
--- NOTE | 2022-09-04 | ECG_ITS ---
Test Reason : SOB Blood Pressure : / mmHG Vent. Rate : 122 BPM Atrial Rate : 122 BPM P-R Int : 136 ms QRS Dur : 138 ms QT Int : 354 ms P-R-T Axes : 104 223 044 degrees QTc Int : 504 ms Suspect limb lead reversal, interpretation assumes no reversal Sinus tachycardia Right bundle branch block Septal infarct , age undetermined Abnormal ECG When compared with ECG of 23-AUG-2022 03:43, Vent. rate has increased BY 72 BPM Right bundle branch block has replaced Incomplete right bundle branch block Septal infarct is now Present Referred By: Generic ED Physician Electronically Signed By:
--- NOTE | ~2022-09-04 | XR_ITS ---
EXAMINATION: XR CHEST CLINICAL INFORMATION: Short of breath COMPARISON: 08/23/2022 TECHNIQUE: Frontal view of the chest was obtained. FINDINGS: Evaluation of the left apex is limited due to overlying structures. Rotated study. The lungs are well expanded. Prominent markings are seen at both mid to lower lungs, increased from prior. No definite pleural effusion. No pneumothorax. The cardiomediastinal silhouette is unchanged. XR/XR chest 1V IMPRESSION: Increased markings at the mid to lower lungs could be associated with mild edema versus a small airways process such as atypical/viral infection.
[2022-09-04] MEDS: methylPREDNISolone Sod Succ 125 MG/2 ML VIAL IVPUSH (06:19)
[2022-09-04] MEDS: Furosemide 40 MG/4 ML VIAL IVPUSH (06:19)
[2022-09-04 06:20] LABS: Hemoglobin 14.7 g/dl (14.0-18.0); Mean Corpuscular Hemoglobin 30.2 pg (27.0-33.0); Mean Corpuscular Volume 94.7 fL (80.0-98.0); Mean Platelet Volume 10.3 fL (9.4-12.4); Platelet Count 163 X10*3/uL (160-400); Red Blood Count 4.86 X10*6/uL (4.60-5.80); Red Cell Distribution Width 14.5 % (11.0-16.0); White Blood Count 9.4 X10*3/uL (4.8-10.8)
[2022-09-04 06:31] LABS: ABG Base Excess 5.4 mmol/L; ABG HCO3 35 mmol/L (22-26); ABG pCO2 72 mmHg (32-45); ABG pH 7.28 (7.35-7.45); ABG pO2 93 mmHg (83-108)
[2022-09-04 06:31] LABS: ABG Refer to POC result
[2022-09-04 06:33] LABS: Lactic Acid 3.3 mmol/L (0.5-2.0)
[2022-09-04 06:37] LABS: Alanine Aminotransferase 25 U/L (0-40); Albumin Level 3.6 g/dL (3.5-5.0); Alkaline Phosphatase 76 U/L (39-117); Anion Gap 18 (12-20); Aspartate Amino Transferase 28 U/L (5-37); Bilirubin Total 0.4 mg/dL (0.0-1.0); Blood Urea Nitrogen 13 mg/dL (9-16); Calcium 9.1 mg/dL (8.4-10.2); Carbon Dioxide 24 mmol/L (22-29); Chloride 97 mmol/L (96-108); Creatinine Clr Calc Pharmacy 64.8; Estimated Glomerular Filt Rate > 60; Glucose Random 317 mg/dL (60-115); Potassium 4.6 mmol/L (3.3-5.1); Sodium 134 mmol/L (135-145); Total Protein 7.2 g/dL (6.5-8.0)
[2022-09-04 06:41] LABS: B Type Natriuretic Peptide 450 pg/mL (<100)
[2022-09-04 06:43] LABS: Troponin-I High Sensitivity 29.4 ng/L (<3.5-35.0)
[2022-09-04] MEDS: cefEPime HCl 2 GM in 0.9 % Sodium Chloride 50 ML IV (07:03)
--- NOTE | 2022-09-04 07:12 | PC.NURSE ---
this rn assumed care of pt @ 0502. pt biba ems pt on cpap upon arrival. this international sourcing manager marketing summer internplater printed circuit board panels RT and dr junior at bedside upon arrival. ekg obtained. blood work obtained. difficulty drawing second set of blood cultures. multiple rns attempted iv placement. dr junior to bedside for placement of triple lumen central line. placed in R femoral. pt on bipap @ 100%.iv antibiotic began. per dr junior hold nitro paste as pt received 1 inch of nitro paste by ems. pt had several 5 beat runs of Vtac. dr junior aware and at bedside. no new orders at this time.
--- NOTE | 2022-09-04 07:16 | ED.SOB ---
HPI - SOB/Dyspnea General Chief Complaint: Dyspnea Stated Complaint: SOB Time Seen by Provider: 09/04/22 05:58 History of Present Illness HPI Narrative: Patient is a 76[facility] with a history of being in the intensive care unit. Just got discharged from the hospital on the . Patient has a history of V-tach status post cardio version history of being on amiodarone history of elevated troponins history of [place] history of congestive heart failure with an EF of 10% history of alcohol abuse schizophrenia diabetes patient is full code presented today with having acute shortness of breath. Apparently patient went back to [facility] and did not want to wear his mask. Was sent in for increased shortness of breath. Patient unable to give any history. Related Data Home Medications Medication Instructions Recorded Confirmed acetaminophen 325 mg capsule 650 mg PO Q4H PRN Pain 01/19/20 08/23/22 bicalutamide 50 mg tablet 50 mg PO DAILY 01/19/20 08/23/22 furosemide 20 mg tablet (Lasix) 20 mg PO DAILY 01/19/20 08/23/22 levalbuterol tartrate 45 2 puff inhalation Q4H PRN cough 01/19/20 08/23/22 mcg/actuation aerosol inhaler lorazepam 2 mg/mL injection 1 mg IM Q5M PRN Seizure Activity 01/19/20 08/23/22 solution (Ativan) omeprazole 20 mg capsule,delayed 20 mg PO DAILY@0630 01/19/20 08/23/22 release sennosides 8.6 mg tablet (senna) 8.6 mg PO DAILY PRN Constipation 01/19/20 08/23/22 guaifenesin 100 mg/5 mL oral liquid 200 mg PO Q6H PRN Cough 12/21/21 08/23/22 sodium phosphates 19 gram-7 118 ml CA DAILY PRN Constipation 12/21/21 08/23/22 gram/118 mL enema (Fleet Enema) aluminum-mag hydroxide-simethicone 20 ml PO Q4H PRN Dyspepsia 03/07/22 08/23/22 200 mg-200 mg-20 mg/5 mL oral susp dextran 70-hypromellose (PF) 0.1 1 drp ophthalmic (eye) Q8H PRN Dry 12/07/22 05/25/23 %-0.3 % eye drops in a dropperette Eyes (Artificial Tears (PF)) aspirin 81 mg tablet,delayed 81 mg PO DAILY 08/08/22 08/23/22 release bisacodyl 10 mg rectal suppository 10 mg CA DAILY PRN Constipation 08/08/22 08/23/22 divalproex 125 mg capsule,delayed 1,000 mg PO DAILY 08/08/22 08/23/22 release sprinkle doxycycline hyclate 50 mg capsule 50 mg PO DAILY 08/08/22 08/23/22 levalbuterol tartrate 45 2 puff inhalation BID 08/08/22 08/23/22 mcg/actuation aerosol inhaler sennosides 8.6 mg tablet (senna) 8.6 mg PO BID 08/08/22 08/23/22 amiodarone 200 mg tablet 200 mg PO DAILY 08/23/22 08/23/22 Previous Rx's Medication Instructions Recorded carvedilol 3.125 mg tablet 3.125 mg PO BID #0 tabs 08/13/22 lactulose 10 gram/15 mL oral 30 ml PO TID PRN constipation #237 08/13/22 solution mL Allergies Allergy/AdvReac Type Severity Reaction Status Date / Time tuberculin, purified protein Allergy Unknown UNKNOWN Verified 12/21/21 13:21 deriva [Tuberculin,Purif.Prot.Deriv.] Review of Systems Review of Systems: Unable to obtain review systems secondary to patient's condition [facility] Past Medical History Medical History (Updated 09/04/22 @ 07:25 by Merry Mcbride MD) Cervicalgia CHF (congestive heart failure) COPD (chronic obstructive pulmonary disease) Dementia Diabetes type 2, controlled Dysphagia Epilepsy GERD (gastroesophageal reflux disease) Hypertension Muscle weakness (generalized) Pneumonia due to Acinetobacter species Respiratory failure with hypoxia and hypercapnia Schizo affective schizophrenia Spinal stenosis Family History Family History Mother Cancer Social History Social History Household Members: None Housing: Residential Housing Other:: non verbal Are you a primary menagerie caretaker to a significant other at home: No Unable to assess alcohol history related to: Unknown Alcohol intake: unknown Patient Tobacco Use Status: Never used Tobacco Second Hand Smoke Exposure: No Advance Directives: Yes Advance Directives on File: Yes Advance Directives Date on File: 08/14/22 service: No Current occupational status: disabled Physical Exam Vital Signs: Vital Signs: Last Vital Signs Temp 98.8 F 09/04/22 05:51 Pulse 70 09/04/22 07:33 Resp 19 09/04/22 07:33 BP 82/52 L 09/04/22 07:33 Pulse Ox 97 09/04/22 07:33 O2 Del Method CPAP 09/04/22 07:33 FiO2 100 09/04/22 07:33 BMI result Body Mass Index 25.3 Appearance: In extremis short of breath BiPAP in place Eyes: Pupils equal, round and reactive to light. ENT: Pharynx normal. Neck: Positive JVD noted CVS: Normal heart rate and rhythm. Pulses normal. Normal S1 and S2 Respiratory: Diminished breath sounds bilaterally Abdomen: Soft and nontender. No rigidity. No distention. good BS x4 Skin: Skin warm and dry. Normal skin color. Normal skin turgor. Extremities: No lower extremity edema. Neurovascular intact to all extremities. No Lacerations. No Rash Neuro: Diminished breath sounds bilaterally Medications Administered Discontinued Medications Generic Name Dose Route Start Last Admin Trade Name Freq PRN Reason Stop Dose Admin Furosemide 40 mg 09/04/22 06:01 09/04/22 06:19 Furosemide 40 Mg/4 Ml Vial IVPUSH 09/04/22 06:02 40 mg ONCE ONE Administration Protocol Cefepime HCl 2 gm/ Sodium 50 mls @ 100 mls/hr 09/04/22 06:01 09/04/22 07:34 Chloride IV 09/04/22 06:30 Infused ONCE ONE Infusion Methylprednisolone Sodium Succinate 125 mg 09/04/22 06:01 09/04/22 06:19 Methylprednisolone Sod Succ 125 Mg/2 Ml Vial IVPUSH 09/04/22 06:02 125 mg ONCE ONE Administration Nitroglycerin 1 inch 09/04/22 06:01 09/04/22 07:05 Nitroglycerin 2 % Oint 1 Gm Packet TRANSDERMA 09/04/22 06:02 Not Given ONCE ONE Medical Decision Making Medical Decision Making MDM Narrative: Positive shortness of breath. Patient's chest x-ray showed bilateral infiltrate. Consistent with CHF. Patient baseline has an ejection fraction of 10%. Baseline has a history of V-tach and is already on amiodarone. Was placed on BiPAP immediately. Patient given Lasix and continue on the nitro. BiPAP started at 16/6. The patient's ABG showed acute respiratory acidosis by my interpretation. Patient's pH was 7.27 with a pCO2 in the 70s. Patient's BMP elevated consistent with CHF. Troponin is actually approximately baseline if not better. My interpretation patient's EKG showed a sinus pattern heart rate is 120 with a significant right bundle-branch block this is old. Patient's blood cultures was obtained nevertheless. Started on cefepime as patient recently was in the hospital in the ICU. Patient's symptoms more consistent with CHF. Lactate elevated questions secondary to intravascular depletion. [place] at this time given patient's ejection fraction of 10% patient not a candidate for aggressive IV fluid therapy. Will discuss patient's case with the litigation specialist for admission. Patient's blood pressure dropped to the 70s over 50s. Will start patient on Levophed. Patient's case discussed with the litigation specialist. Will accept patient to the intensive care unit. Differential Diagnosis Differential Diagnoses: The differential diagnosis associated with the presentation includes Respiratory failure, congestive heart failure, pneumonia, COPD Consult Healthcare Provider Management of the patient was discussed with: Slurry Worker Intensive care Lab Data MDM Lab Attestation statement: I reviewed the patient's lab results. 09/04/22 06:12 09/04/22 06:12 Labs: Lab Results 09/04/22 09/04/22 09/04/22 Range/Units 06:12 06:12 06:12 WBC 9.4 (4.8-10.8) X10*3/uL RBC 4.86 (4.60-5.80) X10*6/uL Hgb 14.7 (14.0-18.0) g/dl Hct 46.0 (42.0-52.0) % MCV 94.7 (80.0-98.0) fL MCH 30.2 (27.0-33.0) pg MCHC 32.0 (31.0-36.0) g/dl RDW 14.5 (11.0-16.0) % Plt Count 163 (160-400) X10*3/uL MPV 10.3 (9.4-12.4) fL Absolute Nucleated RBC 0.000 (0.0-0.012) X10*3/uL Nucleated RBC % (auto) 0.0 (0.0-0.2) /100WBC O2 Saturation % ABG pH at Pt Temp (7.35-7.45) ABG pCO2 at Pt Temp (32-45) mmHg ABG pO2 at Pt Temp (83-108) mmHg ABG HCO3 (22-26) mmol/L ABG Base Excess (Actual) mmol/L Sodium 134 L (135-145) mmol/L Potassium 4.6 D (3.3-5.1) mmol/L Chloride 97 (96-108) mmol/L Carbon Dioxide 24 (22-29) mmol/L Anion Gap 18 (12-20) BUN 13 (9-16) mg/dL Creatinine 1.00 (0.5-1.4) mg/dL Estim Creat Clear Calc 64.8 Estimated GFR > 60 Random Glucose 317 H (60-115) mg/dL Lactic Acid 3.3 H* (0.5-2.0) mmol/L Calcium 9.1 (8.4-10.2) mg/dL Total Bilirubin 0.4 (0.0-1.0) mg/dL AST 28 (5-37) U/L ALT 25 (0-40) U/L Alkaline Phosphatase 76 (39-117) U/L Troponin I High Sens (<3.5-35.0) ng/L B-Natriuretic Peptide (<100) pg/mL Total Protein 7.2 (6.5-8.0) g/dL Albumin 3.6 (3.5-5.0) g/dL 09/04/22 09/04/22 09/04/22 Range/Units 06:12 06:12 06:22 WBC (4.8-10.8) X10*3/uL RBC (4.60-5.80) X10*6/uL Hgb (14.0-18.0) g/dl Hct (42.0-52.0) % MCV (80.0-98.0) fL MCH (27.0-33.0) pg MCHC (31.0-36.0) g/dl RDW (11.0-16.0) % Plt Count (160-400) X10*3/uL MPV (9.4-12.4) fL Absolute Nucleated RBC (0.0-0.012) X10*3/uL Nucleated RBC % (auto) (0.0-0.2) /100WBC O2 Saturation 98.0 % ABG pH at Pt Temp 7.28 L (7.35-7.45) ABG pCO2 at Pt Temp 72 H* (32-45) mmHg ABG pO2 at Pt Temp 93 (83-108) mmHg ABG HCO3 35 H (22-26) mmol/L ABG Base Excess (Actual) 5.4 mmol/L Sodium (135-145) mmol/L Potassium (3.3-5.1) mmol/L Chloride (96-108) mmol/L Carbon Dioxide (22-29) mmol/L Anion Gap (12-20) BUN (9-16) mg/dL Creatinine (0.5-1.4) mg/dL Estim Creat Clear Calc Estimated GFR Random Glucose (60-115) mg/dL Lactic Acid (0.5-2.0) mmol/L Calcium (8.4-10.2) mg/dL Total Bilirubin (0.0-1.0) mg/dL AST (5-37) U/L ALT (0-40) U/L Alkaline Phosphatase (39-117) U/L Troponin I High Sens 29.4 (<3.5-35.0) ng/L B-Natriuretic Peptide 450 H (<100) pg/mL Total Protein (6.5-8.0) g/dL Albumin (3.5-5.0) g/dL Procedures Central Line Placement Right Femoral: Time Out Performed: Yes Patient Placed on Monitor/Pulse Ox: Yes MD Prep: mask, gown and gloves Central Line Prep: Chlorhexidine scrub Local Anesthetic: lidocaine 1% Amount of anesthesia used (mL): 5 Ultrasound Used for Placement: No Central Line Lumen Inserted: triple Post Procedure: sutured in place Patient Tolerated Procedure: well Complications: none Critical Care Time Critical Care Time Critical Care Time: Yes Total Critical Care Time: 45 Attestation: I have personally provided 45 minutes of critical care time exclusive of time spent on separately billable procedures. Time includes review of lab data, radiology results, discussion with consultants, and monitoring for potential decompensation. Interventions were performed as documented above Discharge Plan Discharge Clinical Impression: Respiratory failure Patient Disposition: Admitted As Inpatient
--- NOTE | 2022-09-04 07:19 | PC.NURSE ---
Initial contact with pt after receiving report. Pt opens eyes briefly to strong physical stim, occasionally attempting to remove bipap. o2 sat maintained >97% on monitor. 5 beat run of vtach noted.
[2022-09-04] MEDS: Norepinephrine Bitartrate/D5W 8 MG/250 ML PLAST..BAG 7.51 MG IV (07:46)
--- NOTE | 2022-09-04 07:48 | PC.NURSE ---
Norepi started, running through central line.
[2022-09-04 08:17] LABS: Reflex Lactate? Lactic Acid Added
--- NOTE | 2022-09-04 08:57 | PHA.MEDREC ---
Pharmacy Consult ? Medication Reconciliation Pharmacy has completed the medication reconciliation. Pt recently discharged, list sent from [facility]
[2022-09-04] MEDS: Heparin Sodium,Porcine 5,000 UNIT/ML VIAL 5000 UNIT SUBCUT ×2 (09:10→15:09)
[2022-09-04] MEDS: Albumin Human 25 % 100 ML IV ×2 (09:10→11:12)
[2022-09-04 09:15] LABS: ~Lactic Acid-LAB USE ONLY 2.7 mmol/L (0.5-2.0)
--- NOTE | 2022-09-04 09:17 | PC.NURSE ---
verbal report to MARQUIS camacho in ICU
--- NOTE | 2022-09-04 09:33 | PC.NURSE ---
Incontinent care provided. small amount of urine output
--- NOTE | 2022-09-04 09:52 | PC.NURSE ---
pt transported to icu on bipap and monitor
[2022-09-04 10:31] LABS: Glucose, Whole Blood 149 mg/dL (60-115)
--- NOTE | 2022-09-04 10:44 | P.HPCC_ITS ---
History of Present Illness Date of Service: 09/04/22 Chief Complaint: dyspnea and hypercapnia 76-year-old gentleman with underlying history of dementia, alcohol abuse, cardiomegaly with EF of 10%, COPD, hepatitis, epilepsy, AFib on amiodarone, schizophrenia, diabetes mellitus, resident of [facility] at on 09/04/2022 with acute on chronic hypoxic and hypercapnic respiratory failure secondary to noncompliance with ambulatory noninvasive positive pressure ventilation at night, now requiring BiPAP support. And emergency room patient was started on empiric diuresis with development of hypotension and thus was placed on vasopressor support and transferred to intensive care unit. Review of Systems Review of Systems: Yes Unobtainable due to mental status [facility] Past Medical History Medical History (Updated 09/04/22 @ 10:48 by Herbert Hall MD) Cervicalgia CHF (congestive heart failure) COPD (chronic obstructive pulmonary disease) Dementia Diabetes type 2, controlled Dysphagia Epilepsy GERD (gastroesophageal reflux disease) Hypertension Muscle weakness (generalized) Pneumonia due to Acinetobacter species Respiratory failure with hypoxia and hypercapnia Schizo affective schizophrenia Spinal stenosis Family History Family History Mother Cancer Social History Social History Household Members: Other Housing: [facility] Housing Other:: [facility] Are you a primary acute care nurse practitioner to a significant other at home: No Unable to assess alcohol history related to: Unable to respond Alcohol intake: unknown Patient Tobacco Use Status: Never used Tobacco Smoked in Last 30 Days: No Second Hand Smoke Exposure: No Use of substances other than those prescribed or required for medical reasons: Unable to respond Spiritual Healthcare Practices: unknown Church Healthcare Practices: unknown Cultural Healthcare Practices: unknown Advance Directives: Yes Advance Directives on File: Yes Advance Directives Date on File: 08/14/22 Recently lost weight without trying: Unsure service: No Current occupational status: disabled Meds Allergies Allergy/AdvReac Type Severity Reaction Status Date / Time tuberculin, purified protein Allergy Unknown UNKNOWN Verified 12/21/21 13:21 deriva [Tuberculin,Purif.Prot.Deriv.] Active Medications: Current Medications Acetazolamide (Acetazolamide Sodium 500 Mg Vial) 250 mg IVPUSH BID DAVID Heparin Sodium (Porcine) (Heparin Sodium,Porcine 5,000 Unit/Ml Vial) 5,000 unit SUBCUT Q8H [facility] Last Admin: 09/04/22 09:10 Dose: 5,000 unit Norepinephrine Bitartrate (Levophed) 8 mg in 250 mls @ 0 mls/hr IV .Q0M DAVID; Protocol Last Titration: 09/04/22 10:35 Dose: 0.05 mcg/kg/min, 7.51 mls/hr Home Medications Medication Instructions Recorded Confirmed Last Taken Type acetaminophen 325 mg capsule 650 mg PO Q4H PRN Pain 01/19/20 09/04/22 Unknown History bicalutamide 50 mg tablet 50 mg PO DAILY 01/19/20 09/04/22 08/22/22 History furosemide 20 mg tablet (Lasix) 20 mg PO DAILY 01/19/20 09/04/22 08/22/22 History levalbuterol tartrate 45 2 puff inhalation Q4H PRN cough 01/19/20 09/04/22 Unknown History mcg/actuation aerosol inhaler lorazepam 2 mg/mL injection 1 mg IM Q5M PRN Seizure Activity 01/19/20 09/04/22 Unknown History solution (Ativan) omeprazole 20 mg capsule,delayed 20 mg PO DAILY@0630 01/19/20 09/04/22 08/22/22 History release sennosides 8.6 mg tablet (senna) 8.6 mg PO DAILY PRN Constipation 01/19/20 09/04/22 Unknown History guaifenesin 100 mg/5 mL oral liquid 200 mg PO Q6H PRN Cough 12/21/21 09/04/22 Unknown History sodium phosphates 19 gram-7 118 ml CO DAILY PRN Constipation 12/21/21 09/04/22 Unknown History gram/118 mL enema (Fleet Enema) aluminum-mag hydroxide-simethicone 20 ml PO Q4H PRN Dyspepsia 03/07/22 09/04/22 Unknown History 200 mg-200 mg-20 mg/5 mL oral susp dextran 70-hypromellose (PF) 0.1 1 drp ophthalmic (eye) Q8H PRN Dry 03/07/22 09/04/22 Unknown History %-0.3 % eye drops in a dropperette Eyes (Artificial Tears (PF)) aspirin 81 mg tablet,delayed 81 mg PO DAILY 08/08/22 09/04/22 08/22/22 History release bisacodyl 10 mg rectal suppository 10 mg CO DAILY PRN Constipation 08/08/22 09/04/22 Unknown History divalproex 125 mg capsule,delayed 1,000 mg PO DAILY 08/08/22 09/04/22 08/22/22 History release sprinkle doxycycline hyclate 50 mg capsule 50 mg PO DAILY 08/08/22 09/04/22 08/22/22 History levalbuterol tartrate 45 2 puff inhalation BID 08/08/22 09/04/22 08/22/22 History mcg/actuation aerosol inhaler sennosides 8.6 mg tablet (senna) 8.6 mg PO BID 08/08/22 09/04/22 08/22/22 History amiodarone 200 mg tablet 200 mg PO DAILY 08/23/22 09/04/22 Unknown History Physical Exam Vital Signs: Vital Signs: Last Vital Signs Temp 98.1 F 09/04/22 09:54 Pulse 54 09/04/22 10:35 Resp 20 09/04/22 09:54 BP 123/68 09/04/22 10:35 Pulse Ox 91 L 09/04/22 09:54 O2 Del Method BiPAP 09/04/22 09:54 FiO2 21 09/04/22 09:54 BMI result Body Mass Index 25.2 Const: General: no acute distress and lethargic Orientation/consciousness: lethargic Eyes: Sclerae: sclerae normal EOM: EOMs intact bilaterally Neck: Neck: Yes no lymphadenopathy, Yes trachea midline and Yes supple Resp: Effort & Inspection: normal respiratory effort and no respiratory distress Auscultation: clear to auscultation bilaterally Cardio: Rate: bradycardic ( With PVC) Rhythm: regular rhythm Heart sounds: no gallops, no murmurs and no rubs GI: Palpation (GI): Soft to palpation and Other GI palpation findings present ( Nontender) Auscultation: normal bowel sounds Extrem: General: No clubbing, No cyanosis and Yes edema ( trace bilateral) Results Labs 09/04/22 06:12 09/04/22 06:12 Labs: Laboratory Results - last 24 hr 09/04/22 09/04/22 09/04/22 06:12 06:12 06:12 MCV 94.7 MCH 30.2 MCHC 32.0 RDW 14.5 Plt Count 163 MPV 10.3 Absolute Nucleated RBC 0.000 Nucleated RBC % (auto) 0.0 O2 Saturation ABG pH at Pt Temp ABG pCO2 at Pt Temp ABG pO2 at Pt Temp ABG HCO3 ABG Base Excess (Actual) Anion Gap 18 Estim Creat Clear Calc 64.8 Estimated GFR > 60 POC Glucose Random Glucose 317 H Lactic Acid 3.3 H* Lactic Acid F/U @ 2Hr Calcium 9.1 Total Bilirubin 0.4 AST 28 ALT 25 Alkaline Phosphatase 76 Troponin I High Sens B-Natriuretic Peptide Total Protein 7.2 Albumin 3.6 09/04/22 09/04/22 09/04/22 06:12 06:12 06:22 MCV MCH MCHC RDW Plt Count MPV Absolute Nucleated RBC Nucleated RBC % (auto) O2 Saturation 98.0 ABG pH at Pt Temp 7.28 L ABG pCO2 at Pt Temp 72 H* ABG pO2 at Pt Temp 93 ABG HCO3 35 H ABG Base Excess (Actual) 5.4 Anion Gap Estim Creat Clear Calc Estimated GFR POC Glucose Random Glucose Lactic Acid Lactic Acid F/U @ 2Hr Calcium Total Bilirubin AST ALT Alkaline Phosphatase Troponin I High Sens 29.4 B-Natriuretic Peptide 450 H Total Protein Albumin 09/04/22 09/04/22 08:56 10:28 MCV MCH MCHC RDW Plt Count MPV Absolute Nucleated RBC Nucleated RBC % (auto) O2 Saturation ABG pH at Pt Temp ABG pCO2 at Pt Temp ABG pO2 at Pt Temp ABG HCO3 ABG Base Excess (Actual) Anion Gap Estim Creat Clear Calc Estimated GFR POC Glucose 149 H Random Glucose Lactic Acid Lactic Acid F/U @ 2Hr 2.7 H* Calcium Total Bilirubin AST ALT Alkaline Phosphatase Troponin I High Sens B-Natriuretic Peptide Total Protein Albumin Imaging Radiologist's Impressions: Impressions Chest X-Ray 09/04/22 06:33 IMPRESSION: Increased markings at the mid to lower lungs could be associated with mild edema versus a small airways process such as atypical/viral infection. Assessment and Plan (1) Acute on chronic respiratory failure with hypoxia and hypercapnia: Status: Acute (2) Dementia: Status: Acute (3) CHF (congestive heart failure): Status: Acute (4) Ischemic congestive cardiomyopathy: Status: Acute (5) Schizo affective schizophrenia: Status: Acute (6) Epilepsy: Status: Acute Plan Assessment: 76-year-old gentleman with underlying schizophrenia and multiple medical issues including severe systolic cardiomyopathy admitted with acute on chronic hypoxic and hypercapnic respiratory failure secondary to noncompliance with noninvasive positive pressure ventilation, now requiring BiPAP frye Plan: Neuro: No acute issues. underlying epilepsy and schizophrenia, continue valproate. Cardiac: Hypotension related to over diuresis, continue to titrate off pressors as tolerated. Continue with colloidal IV support. Underlying V-tach, amiodarone held secondary to bradycardia, restart as heart rate permits. Pulmonary: Acute on chronic hypoxic and hypercapnic respiratory failure secondary to noncompliance with ambulatory noninvasive positive pressure ventilation, now requiring BiPAP support, continue to titrate off as tolerated. Add acetazolamide. Renal: No acute issues. Endo: No acute issues. GI: No acute issues. ID: No acute issues Heme/Onc: No acute issues. Psych: No acute issues. Miscellaneous: No acute issues. Prophylaxis: heparin Diet: nothing by mouth Critical care time spent: 45 minutes Time Spent With Patient Time: Total time managing care of this patient today ____ minutes.
[2022-09-04 11:00] LABS: Reflex Lactate? 2 Y
[2022-09-04 11:13] LABS: Venous Blood Gas Refer to POC result
[2022-09-04 11:16] LABS: VBG HCO3 41 mmol/L (22-26); VBG pCO2 56 mmHg; VBG pH 7.47 (7.32-7.43); VBG pO2 46 mmHg
[2022-09-04 11:25] LABS: ~Lactic Acid-LAB USE ONLY 1.4 mmol/L (0.5-2.0)
[2022-09-04] MEDS: acetaZOLAMIDE sodium 500 MG VIAL 250 MG IVPUSH ×2 (11:25→22:01)
[2022-09-04 11:30] LABS: Appearance Urine Turbid; Color Urine Yellow; Glucose Urine UA Negative (Negative); Leukocyte Esterase Urine Trace (Negative); Nitrite Urine Negative (Negative); PH 6.5 (5.0-9.0); UMIC TRIGGER UACC YES; Urine Blood Negative (Negative); Urine Ketones Negative (Negative); Urine Protein Trace mg/dL (Neg-Trace)
[2022-09-04 11:34] LABS: Bacteria Urine None Seen (None Seen); RBC Urine 0-2 /HPF (0-2); Squamous Epithelial Cell Urine 0-2 /HPF (0-2); WBC Urine 0-5 /HPF (0-5)
[2022-09-04 13:26] LABS: VBG Base Excess 3.9 mmol/L; VBG HCO3 24 mmol/L (22-26); VBG pCO2 24 mmHg; VBG pH 7.59 (7.32-7.43); VBG pO2 192 mmHg
[2022-09-04 14:02] LABS: Venous Blood Gas Refer to POC result
[2022-09-04 18:03] LABS: Glucose, Whole Blood 133 mg/dL (60-115)
--- NOTE | 2022-09-04 19:28 | PC.NURSE ---
Assumed care of patient 07:00 pt provided bed bath 13:00, shampoo shower cap, hair brushing. Pt repositioned Q2H, mouth care Q2H 11:00 prn fentanyl given 11:55 per provider, patient given 50 mcg fentanyl once for high RR and facial grimacing, RASS 2+. Medication had some positive effect and relief of pain. Pt able to rest comfortably for 1 hour. 12:34 Precedex gtt started for RASS 2+ per provider. Pt had constant nonpurposeful movement of b/l feet, some nonpurposeful movement of hands. Gtt started at 1 mcg/kg/min and titrated up to 1.4. 17:20 Patient family at bedside advocating that pt pain management need adjusting, prn medication not adequate for pain per family. Pt had facial grimacing, increased RR and work of breath. Discussed with MD and per MD started fentanyl gtt @25 mcg/hr. 18:30 Patient blood pressures decreased, MAP 53. Fentanyl gtt paused. Pt started on levophed gtt. 18:55 Patient heart rate decreasing to 50 bpm. Precedex gtt paused per provider. Levophed gtt titrated up for low MAP until MAP goal >65 attained. 19:00 Bedside report given to next RN, next RN continued levophed titration for MAP >65.
[2022-09-04] MEDS: Divalproex Sodium Sprinkles 125 MG CAP.DR.SPR 1000 MG PO (21:56)
[2022-09-05] VITALS (22 sets, daily range): BP systolic 91–140; BP diastolic 49–77; PULSE 48–78; RESP 12–67; TEMP 36.2–37.1; O2SAT 48–97; BMI 24.6
[2022-09-05 00:01] LABS: Glucose, Whole Blood 140 mg/dL (60-115)
[2022-09-05] MEDS: Heparin Sodium,Porcine 5,000 UNIT/ML VIAL 5000 UNIT SUBCUT ×3 (01:22→15:37)
[2022-09-05 04:51] LABS: VBG Base Excess 6.9 mmol/L; VBG HCO3 31 mmol/L (22-26); VBG pCO2 45 mmHg; VBG pH 7.45 (7.32-7.43); VBG pO2 63 mmHg
[2022-09-05 05:07] LABS: MANUAL DIFF FLAG NO
[2022-09-05 05:08] LABS: Venous Blood Gas Refer to POC result
[2022-09-05 05:09] LABS: Hematocrit 34.4 % (42.0-52.0); Hemoglobin 11.2 g/dl (14.0-18.0); Imm Gran Abs Auto 0.02 X10*3/uL (0.00-0.03); Imm Gran Pct Auto 0.4 % (0.0-0.4); Lymphocytes Absolute Auto 0.7 X10*3/uL (1.2-4.9); Lymphocytes Percent Auto 12.5 % (20-40); Mean Corpuscular HGB Conc 32.6 g/dl (31.0-36.0); Mean Corpuscular Volume 92.2 fL (80.0-98.0); Mean Platelet Volume 10.1 fL (9.4-12.4); Monocytes Absolute Auto 0.5 X10*3/uL (0.1-1.2); Monocytes Percent Auto 9.3 % (2-11); Neutrophils Percent Auto 77.8 % (45-73); Platelet Count 125 X10*3/uL (160-400); Red Blood Count 3.73 X10*6/uL (4.60-5.80); Red Cell Distribution Width 14.7 % (11.0-16.0); White Blood Count 5.2 X10*3/uL (4.8-10.8)
[2022-09-05 05:27] LABS: Albumin Level 3.5 g/dL (3.5-5.0); Anion Gap 12 (12-20); Blood Urea Nitrogen 22 mg/dL (9-16); Calcium 8.8 mg/dL (8.4-10.2); Carbon Dioxide 31 mmol/L (22-29); Chloride 101 mmol/L (96-108); Creatinine Clr Calc Pharmacy 82.1; Estimated Glomerular Filt Rate > 60; Glucose Random 111 mg/dL (60-115); Magnesium 2.2 mg/dL (1.6-2.6); Phosphorus 4.4 mg/dL (2.7-4.5); Sodium 140 mmol/L (135-145)
[2022-09-05 05:31] LABS: Glucose, Whole Blood 102 mg/dL (60-115)
[2022-09-05] MEDS: acetaZOLAMIDE sodium 500 MG VIAL 250 MG IVPUSH ×2 (07:40→21:46)
[2022-09-05] MEDS: Aspirin Enteric Coated 81 MG TABLET.DR PO (07:46)
--- NOTE | 2022-09-05 08:47 | MHC.CM.PN ---
IMM EXPLAINED TO GUARDIAN VALARIE VALDEZ, WILL SEND WHITE COPY VIA MAIL, YELLOW COPY TO CHART. PT IS A LTC PT AT [facility]. UNABLE TO PARTICIPATE IN ASSESSMENT. PT IS DEPENDENT WITH ADL'S. USES CPAP AT NIGHT BUT NON COMPLIANT PER NOTES. DP: PER GUARDIAN, PT WILL RETURN TO LTC AT [facility] ON DC VIA BLS TRANSPORT. CM WILL CONTINUE TO FOLLOW FOR DC PLAN/NEEDS
[2022-09-05] MEDS: Divalproex Sodium Sprinkles 125 MG CAP.DR.SPR 1000 MG PO (10:48)
[2022-09-05 12:32] LABS: Glucose, Whole Blood 121 mg/dL (60-115)
--- NOTE | 2022-09-05 13:34 | P.PNIM_ITS ---
Subjective Subjective Date of Service: 09/05/22 Interval History: Marked improvement with BiPAP; back to baseline Review of Systems Unable to obtain Physical Exam Vital Signs: Vital Signs: Last Vital Signs Temp 98.5 F 09/05/22 12:00 Pulse 67 09/05/22 13:00 Resp 22 H 09/05/22 13:00 BP 112/64 09/05/22 13:00 Pulse Ox 89 L 09/05/22 13:00 O2 Del Method Room Air 09/05/22 13:00 O2 Flow Rate 21 09/05/22 00:00 FiO2 21 09/05/22 05:00 BMI result Body Mass Index 24.6 Const: Other: Awake; cognition at baseline Resp: Other: Good aeration to bases with scattered bibasilar crackles Cardio: Other: No S4; positive S1-S2; no S3 murmurs rubs or gallops GI: Other: Soft nontender nondistended normoactive bowel sounds Extrem: Other: Trace edema bilaterally Objective Data Active Medications Acetazolamide (Acetazolamide Sodium 500 Mg Vial) 250 mg IVPUSH BID [facility] Last Admin: 09/05/22 07:40 Dose: 250 mg Documented By: EMMETT Aspirin (Aspirin Enteric Coated 81 Mg Tablet.) 81 mg PO DAILY [facility] Last Admin: 09/05/22 07:46 Dose: 81 mg Documented By: EMMETT Carvedilol (Carvedilol 3.125 Mg Tablet) 3.125 mg PO BID [facility]; Protocol Last Admin: 09/05/22 07:44 Dose: Not Given Documented By: EMMETT Non-Admin Reason: Decreased Heart Rate Divalproex Sodium (Divalproex Sodium Sprinkles 125 Mg Spr) 1,000 mg PO DAILY [facility] Last Admin: 09/05/22 10:48 Dose: 1,000 mg Documented By: EMMETT Heparin Sodium (Porcine) (Heparin Sodium,Porcine 5,000 Unit/Ml Vial) 5,000 unit SUBCUT Q8H [facility] Last Admin: 09/05/22 07:39 Dose: 5,000 unit Documented By: EMMETT Norepinephrine Bitartrate (Levophed) 8 mg in 250 mls @ 0 mls/hr IV .Q0M [facility]; Protocol Last Titration: 09/04/22 11:34 Dose: 0 mcg/kg/min, 0 mls/hr Documented By: DANNIELLE Thomas (Sennosides 8.6 Mg Tablet) 8.6 mg PO DAILY PRN PRN Reason: Constipation Labs 09/05/22 04:44 09/05/22 04:44 Labs: Laboratory Results - last 24 hr 09/04/22 09/04/22 09/05/22 17:59 23:58 04:42 MCV MCH MCHC RDW Plt Count MPV Immature Gran % (Auto) Neut % (Auto) Lymph % (Auto) Talbot % (Auto) Eos % (Auto) Baso % (Auto) Lymph # (Auto) Talbot # (Auto) Eos # (Auto) Baso # (Auto) Abs Immat Gran (auto) Absolute Neuts (auto) Absolute Nucleated RBC Nucleated RBC % (auto) VBG pH 7.45 H VBG pCO2 45 VBG pO2 63 VBG HCO3 31 H VBG O2 Saturation 90.0 VBG Base Excess 6.9 Anion Gap Estim Creat Clear Calc Estimated GFR POC Glucose 133 H 140 H Random Glucose Calcium Phosphorus Magnesium Albumin 09/05/22 09/05/22 09/05/22 04:44 04:44 05:28 MCV 92.2 MCH 30.0 MCHC 32.6 RDW 14.7 Plt Count 125 L MPV 10.1 Immature Gran % (Auto) 0.4 Neut % (Auto) 77.8 H Lymph % (Auto) 12.5 L Talbot % (Auto) 9.3 Eos % (Auto) 0.0 Baso % (Auto) 0.0 Lymph # (Auto) 0.7 L Talbot # (Auto) 0.5 Eos # (Auto) 0.0 Baso # (Auto) 0.0 Abs Immat Gran (auto) 0.02 Absolute Neuts (auto) 4.0 Absolute Nucleated RBC 0.000 Nucleated RBC % (auto) 0.0 VBG pH VBG pCO2 VBG pO2 VBG HCO3 VBG O2 Saturation VBG Base Excess Anion Gap 12 Estim Creat Clear Calc 82.1 Estimated GFR > 60 POC Glucose 102 Random Glucose 111 Calcium 8.8 Phosphorus 4.4 Magnesium 2.2 Albumin 3.5 09/05/22 12:28 MCV MCH MCHC RDW Plt Count MPV Immature Gran % (Auto) Neut % (Auto) Lymph % (Auto) Talbot % (Auto) Eos % (Auto) Baso % (Auto) Lymph # (Auto) Talbot # (Auto) Eos # (Auto) Baso # (Auto) Abs Immat Gran (auto) Absolute Neuts (auto) Absolute Nucleated RBC Nucleated RBC % (auto) VBG pH VBG pCO2 VBG pO2 VBG HCO3 VBG O2 Saturation VBG Base Excess Anion Gap Estim Creat Clear Calc Estimated GFR POC Glucose 121 H Random Glucose Calcium Phosphorus Magnesium Albumin Microbiology Microbiology Results: Microbiology 09/04/22 07:01 Blood Culture - Preliminary Blood - Venous Prelim: GPC Gram Stain only 09/04/22 06:12 Blood Culture - Preliminary Blood - Venous No growth after 24 hours. Assessment and Plan (1) Acute on chronic systolic CHF (congestive heart failure), NYHA class 4: Status: Acute (2) Acute on chronic respiratory failure with hypoxia and hypercapnia: Status: Acute (3) Schizo affective schizophrenia: Status: Acute Plan 76-year-old gentleman with underlying history of dementia, alcohol abuse, cardiomegaly with EF of 10%, COPD, hepatitis, epilepsy, AFib on amiodarone, schizophrenia, diabetes mellitus, resident of [facility] at on 09/04/2022 with acute on chronic hypoxic and hypercapnic respiratory failure? secondary to noncompliance with ambulatory noninvasive positive pressure ventilation at night, now requiring BiPAP support.? And emergency room patient was started on empiric diuresis with development of hypotension and thus was placed on vasopressor support and transferred to intensive care unit. 1. Acute on chronic respiratory failure with hypoxia and hypercapnia -resolved overnight with BiPAP -likely return to [facility] in a.m.. Will encourage compliance with BiPAP at [facility] however difficult given patient baseline -continue outpatient Lasix doses 2. Ischemic congestive cardiomyopathy (LVEF 10%) -continue all outpatient therapies as ordered -optimal medical management 3. Schizoaffective disorder -continue outpatient therapies Full code Lovenox Patient will require ongoing hospitalization to document resolution of acute respiratory failure with BiPAP Time Spent With Patient Time: Total time managing care of this patient today ____ minutes. Quality Stroke Does the patient have a stroke diagnosis?: No VTE Prior VTE?: No VTE Risk Level:: Medical - moderate - high VTE Device Contraindication: Treatment Not Indicated VTE Drug Contraindication: N/A - Med Ordered
[2022-09-05 16:43] LABS: Glucose, Whole Blood 103 mg/dL (60-115)
[2022-09-05 20:30] LABS: Glucose, Whole Blood 107 mg/dL (60-115)
[2022-09-05] MEDS: carvediloL 3.125 MG TABLET PO (21:46)
[2022-09-06] MEDS: Heparin Sodium,Porcine 5,000 UNIT/ML VIAL 5000 UNIT SUBCUT ×2 (01:04→09:38)
--- NOTE | 2022-09-06 02:09 | PC.NURSE ---
Pt refused bipap @ night. MD aware. will continue to monitor.
[2022-09-06 03:43] VITALS: BP 126/71; PULSE 62; RESP 20; TEMP 36.1; O2SAT 92
[2022-09-06 06:00] VITALS: BMI 25.1
[2022-09-06] MEDS: Omeprazole 20 MG CAPSULE.DR PO (06:04)
[2022-09-06 06:21] LABS: Glucose, Whole Blood 85 mg/dL (60-115)
[2022-09-06 07:54] VITALS: BP 128/72; PULSE 65; RESP 15; TEMP 36.3; O2SAT 92
[2022-09-06] MEDS: Amiodarone HCL 200 MG TABLET PO (09:38)
[2022-09-06] MEDS: carvediloL 3.125 MG TABLET PO (09:38)
[2022-09-06] MEDS: Furosemide 20 MG TABLET PO (09:38)
[2022-09-06] MEDS: acetaZOLAMIDE sodium 500 MG VIAL 250 MG IVPUSH (09:38)
[2022-09-06] MEDS: Aspirin Enteric Coated 81 MG TABLET.DR PO (09:39)
[2022-09-06] MEDS: Divalproex Sodium Sprinkles 125 MG CAP.DR.SPR 1000 MG PO (09:39)
[2022-09-06 11:31] VITALS: BP 152/88; PULSE 68; RESP 17; TEMP 36.6; O2SAT 92
--- NOTE | 2022-09-06 12:02 | PM.DS ---
DS: Providers Provider Date of Service: 09/06/22 Date of admission: 09/04/22 08:03 Date of discharge: 09/06/22 Primary care physician: Richard Castillo DO DS: Diagnosis Discharge Diagnosis (1) Acute on chronic systolic CHF (congestive heart failure), NYHA class 4: Status: Resolved (2) Acute on chronic respiratory failure with hypoxia and hypercapnia: Status: Acute (3) Schizo affective schizophrenia: Status: Acute DS: Summary Hospital Course Hospital Course: 76-year-old gentleman with underlying history of dementia, alcohol abuse, cardiomegaly with EF of 10%, COPD, hepatitis, epilepsy, AFib on amiodarone, schizophrenia, diabetes mellitus, resident of [facility] at on 09/04/2022 with acute on chronic hypoxic and hypercapnic respiratory failure? secondary to noncompliance with ambulatory noninvasive positive pressure ventilation at night, now requiring BiPAP support.? And emergency room patient was started on empiric diuresis with development of hypotension and thus was placed on vasopressor support and transferred to intensive care unit. Hospital Course Admitted to ICU where he has successfully weaned off pressors. He continue to use BiPAP overnight and and rapidly improved. At the time of this discharge he is satting 92% on room air. He is medically acceptable to return to [facility] on previous therapies and is encouraged to wear BiPAP at night. List difficult to achieve given the patient has schizoaffective baseline Time Spent with Patient Time attestation: Total time managing care of this patient today ____ minutes. Discharge coordination time: Greater than 30 minutes Quality: Safe Use of Opioids Does Pt have an Active Cancer Diagnosis on the Problem List?: No Quality: Stroke Does the patient have a stroke diagnosis?: No Physical Exam Vital Signs: Vital Signs: Last Vital Signs Temp 97.8 F 09/06/22 11:31 Pulse 68 09/06/22 11:31 Resp 17 09/06/22 11:31 BP 152/88 H 09/06/22 11:31 Pulse Ox 92 09/06/22 11:31 O2 Del Method Room Air 09/06/22 11:31 O2 Flow Rate 09/05/22 00:00 FiO2 09/05/22 05:00 BMI result Body Mass Index 25.1 Const: Other: Awake; cognition at baseline Resp: Other: Good aeration to bases with scattered bibasilar crackles Cardio: Other: No S4; positive S1-S2; no S3 murmurs rubs or gallops GI: Other: Soft nontender nondistended normoactive bowel sounds Extrem: Other: Trace edema bilaterally DS: Data Data Completed and Pending Completed studies during hospitalization [Text1]: Procedures Assistance with Respiratory Ventilation, Less than 24 Consecutive Hours, Continuous Positive Airway Pressure (08/23/22) Insertion of Infusion Device into Right Atrium, Percutaneous Approach (08/23/22) Insertion of Infusion Device into Superior Vena Cava, Percutaneous Approach (08/08/22) Hoahaoism of Cardiac Rhythm, Single (08/08/22) Ultrasonography of Superior Vena Cava, Guidance (08/23/22) Labs on day of discharge: Laboratory Results - last 24 hr 09/05/22 09/05/22 09/05/22 12:28 16:40 20:24 POC Glucose 121 H 103 107 09/06/22 06:17 POC Glucose 85 Preliminary micro results at discharge 09/04/22 06:12 Blood Culture - Preliminary Blood - Venous No growth after 48 hours. 09/04/22 07:01 Blood Culture - Preliminary Blood - Venous Prelim: GPC Gram Stain only Discharge Plan Discharge Anticipated Discharge Date/Time: 09/06/22 11:59 Patient Disposition: Xfer LTC Discharge Diagnosis: Acute on chronic respiratory failure with hypoxia and hypercapnia Referrals: Richard Castillo DO [Primary Care Provider] - 1 Week Discharge Medications: Continued acetaminophen 325 mg Capsule 650 mg PO Q4H PRN (Reason: Pain) bicalutamide 50 mg Tablet 50 mg PO DAILY lorazepam [Ativan] 2 mg/mL Solution 1 mg IM Q5M PRN (Reason: Seizure Activity) Rx Instructions: may repeat Q 5 minutes x 3 omeprazole 20 mg Capsule,Delayed Release(Dr/Ec) 20 mg PO DAILY@0630 furosemide [Lasix] 20 mg Tablet 20 mg PO DAILY Hold Instructions: Resume on 08/31/22. levalbuterol tartrate 45 mcg/actuation Hfa Aerosol Inhaler 2 puff INHALATION Q4H PRN (Reason: cough) sennosides [senna] 8.6 mg Tablet 8.6 mg PO DAILY PRN (Reason: Constipation) guaifenesin 100 mg/5 mL Liquid 200 mg PO Q6H PRN (Reason: Cough) Fleet Enema 19-7 gram/118 mL Enema 118 ml MT DAILY PRN (Reason: Constipation) alum-mag hydroxide-simeth 200-200-20 mg/5 mL Suspension 20 ml PO Q4H PRN (Reason: Dyspepsia) Artificial Tears (PF) 0.1-0.3 % Dropperette 1 drp OPHTHALMIC (EYE) Q8H PRN (Reason: Dry Eyes) amiodarone 200 mg tablet 200 mg PO DAILY Rx Instructions: LAST DAY OF 400MG BID: 08/23/22; THEN, 200MG DAILY sennosides [senna] 8.6 mg Tablet 8.6 mg PO BID doxycycline hyclate 50 mg capsule 50 mg PO DAILY Rx Instructions: cellulitis prophylaxis aspirin 81 mg Tablet,Delayed Release (Dr/Ec) 81 mg PO DAILY bisacodyl 10 mg Suppository 10 mg MT DAILY PRN (Reason: Constipation) levalbuterol tartrate 45 mcg/actuation HFA aerosol inhaler 2 puff inhalation BID divalproex 125 mg capsule, delayed rel sprinkle 1,000 mg PO DAILY carvedilol 3.125 mg Tablet 3.125 mg PO BID Qty: 0 0RF Protocol: Hold for SBP/HR < HOLD for SBP < : 90 HOLD for HR < : 60 lactulose 10 gram/15 mL solution 30 ml PO TID PRN (Reason: constipation) Qty: 237 0RF Discharge Orders: Discharge Order (Routine); Ordered 09/06/22 Ordered By: Richard Castillo Diet: Advance to usual diet Activity on Discharge: As tolerated Stand Alone Forms: Patient Portal Discharge page Care Plan Goals: Resume all pre-hospital therapies and medications Health Concerns: Encourage BiPAP at bedtime and when napping Plan of Treatment: Further plans as per receiving facility Assessment: See discharge summary
--- NOTE | 2022-09-06 12:16 | MHC.CM.PN ---
Addendum entered by Kailee Fuller 09/06/22 12:46: GUARDIAN VALARIE VALDEZ MADE AWARE OF TRANSFER BACK TO [facility] VIA TELEPHONE MESSAGE Original Note: DP: PT HAS BEEN MEDICALLY CLEARED FOR DC BACK TO [facility] TO RESUME LTC. RN AWARE. CM SPOKE WITH DNS AT CENTER. BLS TRANSPORT BOOKED VIA [facility] FOR 1 PM.
== END 2022-09-06 13:18 | DRG 291 ==
LOC: HO.ED 07:25 → HO.EDOVER 08:07 → HO.ICU 08:54 → HO.IMC 09-05 16:52
PROVIDERS: Admitting Provider Internal Medicine Pulmonary Disease; Emergency Provider Emergency Medicine Emergency Medical Services; PCP Hospitalist; Visit Provider Hospitalist
DX: I11.0 Hypertensive heart disease with heart failure (principal); I50.23 Acute on chronic systolic (congestive) heart failure; J96.21 Acute and chronic respiratory failure with hypoxia; J96.22 Acute and chronic respiratory failure with hypercapnia; F25.9 Schizoaffective disorder, unspecified; I25.2 Old myocardial infarction; G40.909 Epilepsy, unspecified, not intractable, without status epilepticus; I25.5 Ischemic cardiomyopathy; Z91.199 Patient's noncompliance with other medical treatment and regimen due to unspecified reason; I95.9 Hypotension, unspecified; F03.90 Unspecified dementia, unspecified severity, without behavioral disturbance, psychotic disturbance, mood disturbance, and anxiety; Z79.82 Long term (current) use of aspirin; Z79.899 Other long term (current) drug therapy
CPT/HCPCS: 36415; 71045; 80048; 80053; 81001; 82040; 82803; 82947; 83605; 83735; 83880; 84100; 84484; 85025; 85027; 87040; 87147; 87205; 93005; 99285; C1758; J0692; J1643; J1940; J2930; P9047

== ENCOUNTER 2022-12-22 03:34 | Inpatient (IN) | payer MEDICARE, MEDICAID, SELFPAY ==
[2022-12-22] VITALS (13 sets, daily range): BP systolic 92–167; BP diastolic 52–112; PULSE 55–107; RESP 12–43; TEMP 35.9–37.3; O2SAT 94–100; BMI 26.3
--- NOTE | ~2022-12-22 | XR_ITS ---
EXAMINATION: XR CHEST CLINICAL INFORMATION: Dyspnea COMPARISON: 12/22/2022 TECHNIQUE: Frontal view of the chest was obtained. FINDINGS: Lung volumes are symmetric. No focal consolidation is seen. Mildly coarsened appearance of the interstitium is again noted. No evidence of pneumothorax or significant pleural effusion. Cardiac silhouette appears near the upper limits of normal in size, with suboptimal assessment due to patient rotation. No acute osseous findings are seen. XR/XR chest 1V IMPRESSION: No focal consolidation. Mildly coarsened appearance of the interstitium may reflect airways disease.
--- NOTE | ~2022-12-22 | XR_ITS ---
EXAMINATION: XR CHEST CLINICAL INFORMATION: CHF COMPARISON: 09/04/2022 TECHNIQUE: Frontal view of the chest was obtained. FINDINGS: Lung volumes are symmetric. There is a coarsened appearance of the interstitium diffusely. No focal consolidation is seen. No evidence of pneumothorax or significant pleural effusion. The cardiomediastinal contour is unremarkable. No acute osseous findings are seen. XR/XR chest 1V IMPRESSION: Diffusely coarsened appearance of the interstitium, which may reflect airways disease versus subtle interstitial edema in the proper clinical setting.
--- NOTE | ~2022-12-22 | XR_ITS ---
EXAMINATION: XR CHEST CLINICAL INFORMATION: Hypoxia. Shortness of breath. COMPARISON: Previous chest x-ray most recent 12/22/2022 TECHNIQUE: Frontal view of the chest was obtained. FINDINGS: The cardiac silhouette is slightly enlarged but stable. Hilar and mediastinal contours are unremarkable. There is volume loss to left hemithorax. This is unchanged. The lungs are clear. No pleural effusion or pneumothorax. No acute bone abnormality. XR/XR chest 1V IMPRESSION: Stable chest x-ray exam.
--- NOTE | 2022-12-22 03:49 | ECG_ITS ---
Test Reason : SOB Blood Pressure : / mmHG Vent. Rate : 086 BPM Atrial Rate : 086 BPM P-R Int : 184 ms QRS Dur : 140 ms QT Int : 412 ms P-R-T Axes : 057 -69 037 degrees QTc Int : 493 ms Normal sinus rhythm Possible Left atrial enlargement Left axis deviation Right bundle branch block Abnormal ECG When compared with ECG of 04-SEP-2022 05:54, Premature ventricular complexes are no longer Present T wave inversion now evident in Lateral leads Heart rate has increased Referred By: Buzz Phan Electronically Signed By:DUARTE FLORES
[2022-12-22] MEDS: Furosemide 40 MG/4 ML VIAL IVPUSH ×2 (04:20→22:37)
--- NOTE | 2022-12-22 04:20 | PC.NURSE ---
Patient BIBA from [facility] for lethargy, dyspnea. Patient has dementia and refused to wear BIPAP at bedtime. Patient O2 Sat 70% reported by a facility staff, 80% on RA when EMS arrived. EMS applied 1 nitro paste to patient's chest for BP 161/113 and BIBAP with O2 Sat 94% on arrival to ED. Lung sounds with crackles in b/l lower lobes. Patient has Hx of CHF with EF 10%. Dr. Yarbrough and RT at bedside, environmental monitoring specialist applied to chest, EKG completed by extracorporeal technician. BIBAP in place, patient saturating 94-98 on BIPAP. 18 G US guided IV line established in [place] by Dr. Yarbrough, labs drawn and sent to lab for processing. Patient swabbed for COVID. 16 Fr F/C with 10 mL balloon inflation inserted per verbal order from Dr. Yarbrough to monitor I&O, 300 mL of yellow clear urine noted in F/C bag with f/c insertion.
[2022-12-22 04:22] LABS: MANUAL DIFF FLAG NO
[2022-12-22 04:24] LABS: Basophils Percent Auto 0.2 % (0-2); Eosinophils Absolute Auto 0.1 X10*3/uL (0.0-0.4); Eosinophils Percent Auto 0.7 % (0-4); Hematocrit 48.4 % (42.0-52.0); Hemoglobin 15.5 g/dl (14.0-18.0); Imm Gran Abs Auto 0.04 X10*3/uL (0.00-0.03); Imm Gran Pct Auto 0.4 % (0.0-0.4); Lymphocytes Absolute Auto 0.6 X10*3/uL (1.2-4.9); Lymphocytes Percent Auto 5.9 % (20-40); Mean Corpuscular Hemoglobin 31.1 pg (27.0-33.0); Mean Corpuscular Volume 97.2 fL (80.0-98.0); Mean Platelet Volume 9.6 fL (9.4-12.4); Monocytes Absolute Auto 0.6 X10*3/uL (0.1-1.2); Monocytes Percent Auto 6.4 % (2-11); Neutrophils Absolute Auto 8.6 x10*3/uL (2.0-8.3); Neutrophils Percent Auto 86.4 % (45-73); Platelet Count 197 X10*3/uL (160-400); Red Blood Count 4.98 X10*6/uL (4.60-5.80); Red Cell Distribution Width 13.8 % (11.0-16.0); White Blood Count 9.9 X10*3/uL (4.8-10.8)
[2022-12-22 04:26] LABS: Venous Blood Gas Refer to POC result
[2022-12-22 04:28] LABS: VBG Base Excess -0.7 mmol/L; VBG HCO3 27 mmol/L (22-26); VBG pCO2 60 mmHg; VBG pH 7.26 (7.32-7.43); VBG pO2 38 mmHg
[2022-12-22 04:30] LABS: Prothrombin Time 11.6 SEC (11.1-13.3)
[2022-12-22 04:44] LABS: Alanine Aminotransferase 28 U/L (0-40); Albumin Level 4.5 g/dL (3.5-5.0); Alkaline Phosphatase 98 U/L (39-117); Anion Gap 17 (12-20); Aspartate Amino Transferase 28 U/L (5-37); Bilirubin Total 0.4 mg/dL (0.0-1.0); Blood Urea Nitrogen 18 mg/dL (9-16); Carbon Dioxide 27 mmol/L (22-29); Chloride 98 mmol/L (96-108); Estimated Glomerular Filt Rate > 60; Glucose Random 250 mg/dL (60-115); Potassium 5.1 mmol/L (3.3-5.1); Sodium 137 mmol/L (135-145); Total Protein 7.9 g/dL (6.5-8.0)
[2022-12-22 04:48] LABS: B Type Natriuretic Peptide 527 pg/mL (<100); Troponin-I High Sensitivity 18.9 ng/L (<3.5-35.0)
[2022-12-22 04:50] LABS: COVID-19 Test Negative (Negative); IDNOW Serial# 6674DD1D
[2022-12-22] MEDS: Nitroglycerin 2 % Oint 1 GM Packet 0.5 INCH TRANSDERMA (05:30)
--- NOTE | 2022-12-22 05:33 | ED_ITS ---
HPI - SOB/Dyspnea General Chief Complaint: Dyspnea Stated Complaint: diff breathing Time Seen by Provider: 12/22/22 03:48 Source: EMS and RN notes reviewed Mode of arrival: EMS Limitations: altered mental status History of Present Illness HPI Narrative: [id number] with a PMH significant for COPD, CHF poor ejection fraction 10- 15%, schizophrenia, epilepsy, prostate cancer, HTN, and tardive dyskenisia, who was sent to the ED from his SNF ([facility]) for SOB saturating 70% on room air patient is a full code and use CPAP in the nighttime. When EMS arrived patient blood pressure 161/113 1/2 inch of nitropaste was applied by EMS on arrival patient's blood pressure was 154/89 saturating 100% on BiPAP 50% FiO2 Related Data Home Medications Medication Instructions Recorded Confirmed acetaminophen 325 mg capsule 650 mg PO Q4H PRN Pain 01/19/20 12/22/22 bicalutamide 50 mg tablet 50 mg PO DAILY 01/19/20 12/22/22 furosemide 20 mg tablet (Lasix) 20 mg PO DAILY 01/19/20 12/22/22 levalbuterol tartrate 45 2 puff inhalation Q4H PRN cough 01/19/20 12/22/22 mcg/actuation aerosol inhaler lorazepam 2 mg/mL injection 1 mg IM Q5M PRN Seizure Activity 01/19/20 12/22/22 solution (Ativan) omeprazole 20 mg capsule,delayed 20 mg PO DAILY@0630 01/19/20 12/22/22 release sennosides 8.6 mg tablet (senna) 8.6 mg PO DAILY PRN Constipation 01/19/20 12/22/22 guaifenesin 100 mg/5 mL oral liquid 200 mg PO Q6H PRN Cough 12/21/21 12/22/22 sodium phosphates 19 gram-7 118 ml DC DAILY PRN Constipation 12/21/21 12/22/22 gram/118 mL enema (Fleet Enema) aluminum-mag hydroxide-simethicone 20 ml PO Q4H PRN Dyspepsia 03/07/22 12/22/22 200 mg-200 mg-20 mg/5 mL oral susp dextran 70-hypromellose (PF) 0.1 1 drp ophthalmic (eye) Q8H PRN Dry 03/07/22 12/22/22 %-0.3 % eye drops in a dropperette Eyes (Artificial Tears (PF)) aspirin 81 mg tablet,delayed 81 mg PO DAILY 08/08/22 12/22/22 release bisacodyl 10 mg rectal suppository 10 mg DC DAILY PRN Constipation 08/08/22 12/22/22 divalproex 125 mg capsule,delayed 1,000 mg PO DAILY 08/08/22 12/22/22 release sprinkle doxycycline hyclate 50 mg capsule 50 mg PO DAILY 08/08/22 12/22/22 levalbuterol tartrate 45 2 puff inhalation BID 08/08/22 12/22/22 mcg/actuation aerosol inhaler sennosides 8.6 mg tablet (senna) 8.6 mg PO BID 08/08/22 12/22/22 amiodarone 200 mg tablet 200 mg PO DAILY 08/23/22 12/22/22 naloxone 4 mg/actuation nasal 4 mg intranasal Q3M PRN Opioid 12/22/22 12/22/22 spray (Narcan) Overdose oxycodone 5 mg tablet 2.5 mg PO TID 12/22/22 12/22/22 Previous Rx's Medication Instructions Recorded carvedilol 3.125 mg tablet 3.125 mg PO BID #0 tabs 08/13/22 lactulose 10 gram/15 mL oral 30 ml PO TID PRN constipation #237 08/13/22 solution mL Allergies Allergy/AdvReac Type Severity Reaction Status Date / Time tuberculin, purified protein Allergy Unknown UNKNOWN Verified 11/12/22 10:11 deriva [Tuberculin,Purif.Prot.Deriv.] Review of Systems 2 Review of Systems: Yes Unobtainable due to mental status [facility] Past Medical History Medical History CHF (congestive heart failure) Ischemic congestive cardiomyopathy Ventricular tachycardia Pneumonia due to Acinetobacter species Respiratory failure with hypoxia and hypercapnia Diabetes type 2, controlled CHF (congestive heart failure) Hypertension GERD (gastroesophageal reflux disease) Dementia Epilepsy Dysphagia Spinal stenosis Cervicalgia Muscle weakness (generalized) COPD (chronic obstructive pulmonary disease) Schizo affective schizophrenia Family History Family History Mother Cancer Social History Social History Household Members: Other Housing: Residential Housing Other:: [facility] [place] [facility] Are you a primary adult care provider to a significant other at home: No Unable to assess alcohol history related to: Unable to respond Alcohol intake: unknown Patient Tobacco Use Status: Never used Tobacco Smoked in Last 30 Days: No Second Hand Smoke Exposure: No Advance Directives: Yes Advance Directives on File: Yes Advance Directives Date on File: 08/14/22 service: No Current occupational status: disabled Physical Exam 2 Vital Signs: Vital Signs: Last Vital Signs Temp 99.1 F 12/22/22 09:35 Pulse 58 12/22/22 09:35 Resp 15 12/22/22 09:35 BP 98/57 L 12/22/22 09:35 Pulse Ox 100 12/22/22 09:35 O2 Del Method Oxymask 12/22/22 09:35 O2 Flow Rate 6 12/22/22 09:35 BMI result Body Mass Index 26.3 Appearance: Lethargic severe respiratory distress on BiPAP now Eyes: PERRLA, No Nystagmus ENT: Pharynx normal. Oral Mucosa moist Neck: Normal inspection. Neck supple. CVS: Normal heart rate and rhythm. Pulses normal. Respiratory: Moderate respiratory distress. Equal air entry bilateral, bilateral crackles Abdomen: Soft and nontender. Bowel sounds are present, no mass palpable, no CVA tenderness Skin: Skin warm and dry. Normal skin color. Normal skin turgor. Extremities: No lower extremity edema. No calf tenderness Neuro: Lethargic moving all 4 extremities Course Reevaluation(s) Reevaluation #1: I assumed care of this patient from my colleague, Dr. Phan at 07:00 hours. The patient is a 77-year-old male with history of coronary disease, aspiration pneumonia, prostate cancer, CHF, hypertension, tardive dyskinesia, COPD who is a resident of [facility] who was sent to the emergency department for evaluation of lethargy and dyspnea. Patient was noted to have an O2 saturation of 70% on room air. The patient was placed on BiPAP and given Lasix 40 mg IV and nitro paste 2 in per chest wall. Chest x-ray was consistent with interstitial edema, VBG revealed a pH of 7.26 with a pCO2 60. Troponin at 04:00 hours was 18.9 and BNP was 527. Patient was treated with Lasix 40 mg IV and nitro paste 2 in to chest wall. Patient put out approximately 200 cc of urine. Patient was on BiPAP and at 08:00 hours he was changed to OxyMask 6 L. patient's O2 saturation is 98%. I will present the patient to the [facility]. Time: 07:54 Reevaluation #2: The patient was seen by the [facility] hospitalist, Dr. Castillo and the patient was accepted to the hospital service. Time: 09:40 Medications Administered Discontinued Medications Generic Name Dose Route Start Last Admin Trade Name Freq PRN Reason Stop Dose Admin Furosemide 40 mg 12/22/22 03:48 12/22/22 04:20 Furosemide 40 Mg/4 Ml Vial IVPUSH 12/22/22 03:49 40 mg ONCE ONE Administration Protocol Nitroglycerin 0.5 inch 12/22/22 05:24 12/22/22 05:30 Nitroglycerin 2 % Oint 1 Gm Packet TRANSDERMA 12/22/22 05:25 0.5 inch ONCE ONE Administration Medical Decision Making Medical Decision Making [facility] Narrative: Patient with acute hypoxia with history of COPD and CHF with respiratory acidosis pH of 7.26 placed on BiPAP patient does use BiPAP at nighttime will recheck venous gases and plan to with weaning off from the BiPAP admit to ICU/tele floor at this time there is no ICU bed available will keep the patient in the ER patient received IV diuresis Differential Diagnosis Differential Diagnoses: The differential diagnosis associated with the presentation includes Pulmonary edema/pneumonia/COPD/pneumonia Admission/Observation Consideration of admission/observation: Escalation of care including admission/observation considered Lab Data [facility] Lab Attestation statement: I reviewed the patient's lab results. 12/22/22 04:17 12/22/22 04:17 Labs: Lab Results 12/22/22 12/22/22 12/22/22 Range/Units 04:17 04:21 08:52 WBC 9.9 (4.8-10.8) X10*3/uL RBC 4.98 (4.60-5.80) X10*6/uL Hgb 15.5 (14.0-18.0) g/dl Hct 48.4 (42.0-52.0) % MCV 97.2 (80.0-98.0) fL MCH 31.1 (27.0-33.0) pg MCHC 32.0 (31.0-36.0) g/dl RDW 13.8 (11.0-16.0) % Plt Count 197 (160-400) X10*3/uL MPV 9.6 (9.4-12.4) fL Immature Gran % (Auto) 0.4 (0.0-0.4) % Neut % (Auto) 86.4 H (45-73) % Lymph % (Auto) 5.9 L (20-40) % Coleman % (Auto) 6.4 (2-11) % Eos % (Auto) 0.7 (0-4) % Baso % (Auto) 0.2 (0-2) % Lymph # (Auto) 0.6 L (1.2-4.9) X10*3/uL Coleman # (Auto) 0.6 (0.1-1.2) X10*3/uL Eos # (Auto) 0.1 (0.0-0.4) X10*3/uL Baso # (Auto) 0.0 (0.0-0.2) X10*3/uL Abs Immat Gran (auto) 0.04 H (0.00-0.03) X10*3/uL Absolute Neuts (auto) 8.6 H (2.0-8.3) x10*3/uL Absolute Nucleated RBC 0.000 (0.0-0.012) X10*3/uL Nucleated RBC % (auto) 0.0 (0.0-0.2) /100WBC PT 11.6 (11.1-13.3) SEC INR 1.0 (0.9-1.1) APTT 36.0 (26.0-36.4) SEC VBG pH 7.26 L (7.32-7.43) VBG pCO2 60 mmHg VBG pO2 38 mmHg VBG HCO3 27 H (22-26) mmol/L VBG O2 Saturation 54.0 % VBG Base Excess -0.7 mmol/L Sodium 137 (135-145) mmol/L Potassium 5.1 D (3.3-5.1) mmol/L Chloride 98 (96-108) mmol/L Carbon Dioxide 27 (22-29) mmol/L Anion Gap 17 (12-20) BUN 18 H (9-16) mg/dL Creatinine 1.16 (0.5-1.4) mg/dL Estim Creat Clear Calc 55.0 Estimated GFR > 60 Random Glucose 250 H (60-115) mg/dL Calcium 10.0 D (8.4-10.2) mg/dL Total Bilirubin 0.4 (0.0-1.0) mg/dL AST 28 (5-37) U/L ALT 28 (0-40) U/L Alkaline Phosphatase 98 (39-117) U/L Troponin I High Sens 18.9 79.9 H D (<3.5-35.0) ng/L B-Natriuretic Peptide 527 H (<100) pg/mL Total Protein 7.9 (6.5-8.0) g/dL Albumin 4.5 (3.5-5.0) g/dL COVID-19 (COLIN) Negative (Negative) COVID-19 Clin Com See Note 12/22/22 Range/Units 08:58 WBC (4.8-10.8) X10*3/uL RBC (4.60-5.80) X10*6/uL Hgb (14.0-18.0) g/dl Hct (42.0-52.0) % MCV (80.0-98.0) fL MCH (27.0-33.0) pg MCHC (31.0-36.0) g/dl RDW (11.0-16.0) % Plt Count (160-400) X10*3/uL MPV (9.4-12.4) fL Immature Gran % (Auto) (0.0-0.4) % Neut % (Auto) (45-73) % Lymph % (Auto) (20-40) % Coleman % (Auto) (2-11) % Eos % (Auto) (0-4) % Baso % (Auto) (0-2) % Lymph # (Auto) (1.2-4.9) X10*3/uL Coleman # (Auto) (0.1-1.2) X10*3/uL Eos # (Auto) (0.0-0.4) X10*3/uL Baso # (Auto) (0.0-0.2) X10*3/uL Abs Immat Gran (auto) (0.00-0.03) X10*3/uL Absolute Neuts (auto) (2.0-8.3) x10*3/uL Absolute Nucleated RBC (0.0-0.012) X10*3/uL Nucleated RBC % (auto) (0.0-0.2) /100WBC PT (11.1-13.3) SEC INR (0.9-1.1) APTT (26.0-36.4) SEC VBG pH 7.36 (7.32-7.43) VBG pCO2 54 mmHg VBG pO2 55 mmHg VBG HCO3 31 H (22-26) mmol/L VBG O2 Saturation 83.0 % VBG Base Excess 4.7 mmol/L Sodium (135-145) mmol/L Potassium (3.3-5.1) mmol/L Chloride (96-108) mmol/L Carbon Dioxide (22-29) mmol/L Anion Gap (12-20) BUN (9-16) mg/dL Creatinine (0.5-1.4) mg/dL Estim Creat Clear Calc Estimated GFR Random Glucose (60-115) mg/dL Calcium (8.4-10.2) mg/dL Total Bilirubin (0.0-1.0) mg/dL AST (5-37) U/L ALT (0-40) U/L Alkaline Phosphatase (39-117) U/L Troponin I High Sens (<3.5-35.0) ng/L B-Natriuretic Peptide (<100) pg/mL Total Protein (6.5-8.0) g/dL Albumin (3.5-5.0) g/dL COVID-19 ([facility]IN) (Negative) COVID-19 Clin Com Independent Interpretation I performed an independent interpretation of an: EKG Interpretation: Normal sinus rhythm heart rate 86 beats per minute left axis deviation right bundle-branch block no acute ischemic changes Critical Care Time Critical Care Time Critical Care Time: Yes Total Critical Care Time: 75 Attestation: The patient was critically ill with a high probability of imminent or life threatening deterioration. I spent greater than 80 minutes of discontinuous time evaluating the patient,delivering critical care at the bedside, discussing and evaluating pertinent data with consultants. Critical care time does not include time spent performing separately billable procedures or teaching. Total time spent performing critical care was 75 minutes. Discharge Plan Discharge Patient Disposition: Admitted As Inpatient Prescriptions: No Action acetaminophen 325 mg Capsule 650 mg PO Q4H PRN (Reason: Pain) bicalutamide 50 mg Tablet 50 mg PO DAILY lorazepam [Ativan] 2 mg/mL Solution 1 mg IM Q5M PRN (Reason: Seizure Activity) Rx Instructions: may repeat Q 5 minutes x 3 omeprazole 20 mg Capsule,Delayed Release(Dr/Ec) 20 mg PO DAILY@0630 furosemide [Lasix] 20 mg Tablet 20 mg PO DAILY Hold Instructions: Resume on 08/31/22. levalbuterol tartrate 45 mcg/actuation Hfa Aerosol Inhaler 2 puff INHALATION Q4H PRN (Reason: cough) sennosides [senna] 8.6 mg Tablet 8.6 mg PO DAILY PRN (Reason: Constipation) guaifenesin 100 mg/5 mL Liquid 200 mg PO Q6H PRN (Reason: Cough) Fleet Enema 19-7 gram/118 mL Enema 118 ml DC DAILY PRN (Reason: Constipation) alum-mag hydroxide-simeth 200-200-20 mg/5 mL Suspension 20 ml PO Q4H PRN (Reason: Dyspepsia) Artificial Tears (PF) 0.1-0.3 % Dropperette 1 drp OPHTHALMIC (EYE) Q8H PRN (Reason: Dry Eyes) amiodarone 200 mg tablet 200 mg PO DAILY sennosides [senna] 8.6 mg Tablet 8.6 mg PO BID doxycycline hyclate 50 mg capsule 50 mg PO DAILY Rx Instructions: cellulitis prophylaxis aspirin 81 mg Tablet,Delayed Release (Dr/Ec) 81 mg PO DAILY bisacodyl 10 mg Suppository 10 mg DC DAILY PRN (Reason: Constipation) levalbuterol tartrate 45 mcg/actuation HFA aerosol inhaler 2 puff inhalation BID divalproex 125 mg capsule, delayed rel sprinkle 1,000 mg PO DAILY carvedilol 3.125 mg Tablet 3.125 mg PO BID Qty: 0 0RF Protocol: Hold for SBP/HR < HOLD for SBP < : 90 HOLD for HR < : 60 lactulose 10 gram/15 mL solution 30 ml PO TID PRN (Reason: constipation) Qty: 237 0RF naloxone [Narcan] 4 mg/actuation [place],Non-Aerosol 4 mg INTRANASAL Q3M PRN (Reason: Opioid Overdose) Rx Instructions: spray 1 dose into ONE nostril; alternate nostrils w each dose until help arrives oxycodone 5 mg tablet 2.5 mg PO TID
--- NOTE | 2022-12-22 05:35 | PC.NURSE ---
BP 97/63, P 71. Dr. Yarbrough notified, per RN to proceed and apply nitro paste per MAY.
--- NOTE | 2022-12-22 06:11 | PC.NURSE ---
Dr. Yarbrough informed of soft BP's 90-92/52-56, per Dr. Yarbrough RN to remove nitro paste.
--- NOTE | 2022-12-22 06:12 | PC.NURSE ---
Nitro paste removed per Dr. Yarbrough verbal order.
--- NOTE | 2022-12-22 06:52 | PC.NURSE ---
Soft BP readings 90-92/[address] Yarbrough, no new orders at this time.
--- NOTE | 2022-12-22 07:37 | PC.RT ---
pt taken off Bipap per MD and placed on a 6L oxymask. sating 99% at this time. jayjay well. will continue to monitor and wean per sats
--- NOTE | 2022-12-22 08:18 | PHA.MEDREC ---
Pharmacy Consult ? Medication Reconciliation Pharmacy has completed the medication reconciliation. Patient with list from [facility] [place]
[2022-12-22 09:06] LABS: Venous Blood Gas Refer to POC result
[2022-12-22 09:06] LABS: VBG Base Excess 4.7 mmol/L; VBG HCO3 31 mmol/L (22-26); VBG pCO2 54 mmHg; VBG pH 7.36 (7.32-7.43); VBG pO2 55 mmHg
[2022-12-22 09:26] LABS: Troponin-I High Sensitivity 79.9 ng/L (<3.5-35.0)
[2022-12-22] MEDS: Enoxaparin Sodium 40 MG/0.4 ML SYRINGE SUBCUT (12:11)
--- NOTE | 2022-12-22 14:57 | P.HPHOSP_ITS ---
History of Present Illness Date of Service: 12/22/22 Chief Complaint: Respiratory distress [id number]-male with a PMH significant for COPD, CHF poor ejection fraction 10- 15%, schizophrenia, epilepsy, prostate cancer, HTN, and tardive dyskenisia, who was sent to the ED from his SNF ([facility]) for SOB saturating 70% on room air patient is a full code and use CPAP in the nighttime. When EMS arrived patient blood pressure 161/113 1/2 inch of nitropaste was applied by EMS on arrival patient's blood pressure was 154/89 saturating 100% on BiPAP 50% FiO2. In the ER; able to be weaned off BiPAP O2 via mask Review of Systems 2 Review of Systems: Unable to obtain [facility] Medical History CHF (congestive heart failure) Ischemic congestive cardiomyopathy Ventricular tachycardia Pneumonia due to Acinetobacter species Respiratory failure with hypoxia and hypercapnia Diabetes type 2, controlled CHF (congestive heart failure) Hypertension GERD (gastroesophageal reflux disease) Dementia Epilepsy Dysphagia Spinal stenosis Cervicalgia Muscle weakness (generalized) COPD (chronic obstructive pulmonary disease) Schizo affective schizophrenia Family History Mother Cancer Social History Household Members: Other Housing: [facility] Housing Other:: [facility] Are you a primary care management coordinator to a significant other at home: No Unable to assess alcohol history related to: Unable to respond Alcohol intake: unknown Patient Tobacco Use Status: Never used Tobacco Smoked in Last 30 Days: No Second Hand Smoke Exposure: No Advance Directives: Yes Advance Directives on File: Yes Advance Directives Date on File: 08/14/22 service: No Current occupational status: disabled Meds Allergies Allergy/AdvReac Type Severity Reaction Status Date / Time tuberculin, purified protein Allergy Unknown UNKNOWN Verified 11/12/22 10:11 deriva [Tuberculin,Purif.Prot.Deriv.] Active Medications: Current Medications Al Hydroxide/Mg Hydroxide (Magnesium Hydrox/Alum Hydrox 30 Ml Oral.Susp) 20 ml PO Q4H PRN PRN Reason: Dyspepsia Amiodarone HCl (Amiodarone Hcl 200 Mg Tablet) 200 mg PO DAILY [facility] Artificial Tears (Artificial Tears 15 Ml Drops) 1 drop EYE-BOTH Q8H PRN PRN Reason: Dry Eyes Aspirin (Aspirin Enteric Coated 81 Mg Tablet.) 81 mg PO DAILY [facility] Bicalutamide (Bicalutamide 50 Mg Tablet) 50 mg PO DAILY [facility] Bisacodyl (Bisacodyl 10 Mg Supp.Rect) 10 mg [place] DAILY PRN PRN Reason: Constipation Carvedilol (Carvedilol 3.125 Mg Tablet) 3.125 mg PO BID [facility]; Protocol Divalproex Sodium (Divalproex Sodium Sprinkles 125 Mg Cap..Kenzie) 1,000 mg PO DAILY [facility] Enoxaparin Sodium (Enoxaparin Sodium 40 Mg/0.4 Ml Syringe) 40 mg SUBCUT Q24H [facility] Last Admin: 12/22/22 12:11 Dose: 40 mg Furosemide (Furosemide 20 Mg/2 Ml Vial) 20 mg IVPUSH BID@0900,1800 [facility]; Protocol Guaifenesin (Guaifenesin 100 Mg/5 Ml Liquid) 10 ml PO Q6H PRN PRN Reason: Cough Lactulose (Lactulose 20 Gm/30 Ml Solution) 20 gm PO TID PRN PRN Reason: constipation Lorazepam (Lorazepam 2 Mg/Ml Vial) 1 mg IM Q5M PRN PRN Reason: Seizure Activity Omeprazole (Omeprazole 20 Mg Capsule.) 20 mg PO DAILY@0630 [facility] Oxycodone HCl (Oxycodone Hcl Immed Release 5 Mg Tablet) 2.5 mg PO TID [facility] Senna (Sennosides 8.6 Mg Tablet) 8.6 mg PO BID [facility] Senna (Sennosides 8.6 Mg Tablet) 8.6 mg PO DAILY PRN PRN Reason: Constipation Sodium Biphosphate/Sodium Phosphate (Sodium Phosphate,[place]-Dibasic 133 Ml Enema) 118 ml [place] DAILY PRN PRN Reason: Constipation Sodium Chloride (0.9 % Sodium Chloride Flush 3 Ml Syringe) 3 ml IVFLUSH QSHIFT [facility] Home Medications Medication Instructions Recorded Confirmed Last Taken Type acetaminophen 325 mg capsule 650 mg PO Q4H PRN Pain 01/19/20 12/22/22 Unknown History bicalutamide 50 mg tablet 50 mg PO DAILY 01/19/20 12/22/22 08/22/22 History furosemide 20 mg tablet (Lasix) 20 mg PO DAILY 01/19/20 12/22/22 08/22/22 History levalbuterol tartrate 45 2 puff inhalation Q4H PRN cough 01/19/20 12/22/22 Unknown History mcg/actuation aerosol inhaler lorazepam 2 mg/mL injection 1 mg IM Q5M PRN Seizure Activity 01/19/20 12/22/22 Unknown History solution (Ativan) omeprazole 20 mg capsule,delayed 20 mg PO DAILY@0630 01/19/20 12/22/22 08/22/22 History release sennosides 8.6 mg tablet (senna) 8.6 mg PO DAILY PRN Constipation 01/19/20 12/22/22 Unknown History guaifenesin 100 mg/5 mL oral liquid 200 mg PO Q6H PRN Cough 12/21/21 12/22/22 Unknown History sodium phosphates 19 gram-7 118 ml [place] DAILY PRN Constipation 12/21/21 12/22/22 Unknown History gram/118 mL enema (Fleet Enema) aluminum-mag hydroxide-simethicone 20 ml PO Q4H PRN Dyspepsia 03/07/22 12/22/22 Unknown History 200 mg-200 mg-20 mg/5 mL oral susp dextran 70-hypromellose (PF) 0.1 1 drp ophthalmic (eye) Q8H PRN Dry 03/07/22 12/22/22 Unknown History %-0.3 % eye drops in a dropperette Eyes (Artificial Tears (PF)) aspirin 81 mg tablet,delayed 81 mg PO DAILY 08/08/22 12/22/22 08/22/22 History release bisacodyl 10 mg rectal suppository 10 mg [place] DAILY PRN Constipation 08/08/22 12/22/22 Unknown History divalproex 125 mg capsule,delayed 1,000 mg PO DAILY 08/08/22 12/22/22 08/22/22 History release sprinkle doxycycline hyclate 50 mg capsule 50 mg PO DAILY 08/08/22 12/22/22 08/22/22 History levalbuterol tartrate 45 2 puff inhalation BID 08/08/22 12/22/22 08/22/22 History mcg/actuation aerosol inhaler sennosides 8.6 mg tablet (senna) 8.6 mg PO BID 08/08/22 12/22/22 08/22/22 History amiodarone 200 mg tablet 200 mg PO DAILY 08/23/22 12/22/22 Unknown History naloxone 4 mg/actuation nasal 4 mg intranasal Q3M PRN Opioid 12/22/22 12/22/22 Unknown History spray (Narcan) Overdose oxycodone 5 mg tablet 2.5 mg PO TID 12/22/22 12/22/22 Unknown History Physical Exam 2 Vital Signs and Narrative: Vital Signs: Last Vital Signs Temp 97.2 F 12/22/22 14:15 Pulse 64 12/22/22 14:15 Resp 20 12/22/22 14:15 BP 122/72 12/22/22 14:15 Pulse Ox 98 12/22/22 14:15 O2 Del Method Oxymask 12/22/22 14:15 O2 Flow Rate 6 12/22/22 14:15 BMI result Body Mass Index 26.3 Const: Other: Somnolent but arousable Resp: Other: Diminished throughout with scant crackles at bases Cardio: Other: No S4; positive S1-S2; no S3 murmurs rubs or gallops GI: Other: Soft nontender nondistended normoactive bowel sounds Extrem: Other: +edema bilaterally Results Labs 12/22/22 04:17 12/22/22 04:17 Labs: Laboratory Results - last 24 hr 12/22/22 12/22/22 12/22/22 04:17 04:21 08:58 MCV 97.2 MCH 31.1 MCHC 32.0 RDW 13.8 Plt Count 197 MPV 9.6 Immature Gran % (Auto) 0.4 Neut % (Auto) 86.4 H Lymph % (Auto) 5.9 L [place] % (Auto) 6.4 Eos % (Auto) 0.7 Baso % (Auto) 0.2 Lymph # (Auto) 0.6 L [place] # (Auto) 0.6 Eos # (Auto) 0.1 Baso # (Auto) 0.0 Abs Immat Gran (auto) 0.04 H Absolute Neuts (auto) 8.6 H Absolute Nucleated RBC 0.000 Nucleated RBC % (auto) 0.0 PT 11.6 INR 1.0 APTT 36.0 VBG pH 7.26 L 7.36 VBG pCO2 60 54 VBG pO2 38 55 VBG HCO3 27 H 31 H VBG O2 Saturation 54.0 83.0 VBG Base Excess -0.7 4.7 Anion Gap 17 Estim Creat Clear Calc 55.0 Estimated GFR > 60 Random Glucose 250 H Calcium 10.0 D Total Bilirubin 0.4 AST 28 ALT 28 Alkaline Phosphatase 98 B-Natriuretic Peptide 527 H Total Protein 7.9 Albumin 4.5 COVID-19 (COLIN) Negative COVID-19 Clin Com See Note Imaging Radiologist's Impressions: Impressions Chest X-Ray 12/22/22 04:41 IMPRESSION: Diffusely coarsened appearance of the interstitium, which may reflect airways disease versus subtle interstitial edema in the proper clinical setting. Assessment and Plan (1) Acute and chronic respiratory failure with hypoxia: Status: Acute (2) CHF (congestive heart failure): Qualifiers: Heart failure type: systolic Heart failure chronicity: acute Qualified Code(s): I50.21 - Acute systolic (congestive) heart failure Status: Acute (3) Hypertension: Qualifiers: Hypertension type: primary hypertension Qualified Code(s): I10 - Essential (primary) hypertension Status: Acute Plan Pt is a [id number]-male with a PMH significant for COPD, CHF, schizophrenia, epilepsy, prostate cancer, HTN, and tardive dyskenisia, who was sent to the ED from his SNF ([facility]) for SOB. He will be admitted for CHF exacerbation ... treatment and further workup. 1.Acute hypoxic respiratory failure requiring BiPAP (likely secondary to acute systolic heart failure) -Lasix 40 mg IV q.12 hours -BiPAP 12/5 at night and p.r.n. -supplemental O2 as necessary, 1L preferred over 2L as pt is very sensitive to supplemental O2 2. History of ventricular tachycardia -continue amiodarone as ordered -monitor on telemetry 3.Seizure -continue home meds -adjust as indicated 4. COPD -continue outpatient therapies -titrate O2 as indicated Require at least 2 midnights going forward for treatment of acute systolic CHF with BiPAP in IV diuresis. This cannot be achieved a lesser acute setting Time Spent With Patient Time: Total time managing care of this patient today ____ minutes. Quality Stroke Does the patient have a stroke diagnosis?: No VTE Prior VTE?: No VTE Risk Level:: Medical - moderate - high VTE Device Contraindication: Treatment Not Indicated VTE Drug Contraindication: N/A - Med Ordered
[2022-12-22] MEDS: oxyCODONE HCl Immed Release 5 MG TABLET 2.5 MG PO ×2 (16:35→20:46)
[2022-12-22] MEDS: 0.9 % Sodium Chloride Flush 3 ML SYRINGE IVFLUSH ×2 (16:36→20:47)
[2022-12-22] MEDS: Furosemide 20 MG/2 ML VIAL IVPUSH (16:36)
[2022-12-22] MEDS: Sennosides 8.6 MG TABLET PO (20:46)
[2022-12-22] MEDS: carvediloL 3.125 MG TABLET PO (20:47)
[2022-12-22] MEDS: guaiFENesin 100 MG/5 ML LIQUID 10 ML PO (21:12)
[2022-12-22] MEDS: Morphine Sulfate 2 MG/ML CARTRIDGE 1 MG IVPUSH (22:45)
[2022-12-23] VITALS (8 sets, daily range): BP systolic 100–131; BP diastolic 56–75; PULSE 56–89; RESP 17–20; TEMP 36.2–37.1; O2SAT 94–97
[2022-12-23 00:12] LABS: Venous Blood Gas Refer to POC result
[2022-12-23 00:12] LABS: VBG Base Excess 3.1 mmol/L; VBG HCO3 32 mmol/L (22-26); VBG pCO2 67 mmHg; VBG pH 7.28 (7.32-7.43); VBG pO2 35 mmHg
--- NOTE | 2022-12-23 00:17 | PM.EVENT ---
Event Note Date of Service: 12/23/22 Event Note: Was called by the nurse as patient with tachypnea. Upon examination, patient with bilateral crackles and increased work of breathing. Administered additional IV Lasix 40 mg stat. Patient does wear BiPAP at baseline. Blood gas obtained which showed respiratory acidosis. Patient with improvement in tachypnea after BiPAP and IV Lasix. Chest x-ray pending. Discussed with Dr Hall. Low threshold to escalate care and transfer to intensive care unit if respiratory status worsens. Time Spent With Patient Time: Total time managing care of this patient today ____ minutes.
--- NOTE | 2022-12-23 05:32 | PC.NURSE ---
Patient noted to having increase work of breathing, RR 45, coarse crackles throughout. New order received to admin 40 mg of Lasix IVP ,obtain VBG , PRN morphine and BipaP. Interventions effective, no further sign/ symptom of distress noted . .
[2022-12-23] MEDS: Divalproex Sodium Sprinkles 125 MG CAP.DR.SPR 1000 MG PO (09:44)
[2022-12-23] MEDS: 0.9 % Sodium Chloride Flush 3 ML SYRINGE IVFLUSH ×3 (09:44→21:50)
[2022-12-23] MEDS: Aspirin Enteric Coated 81 MG TABLET.DR PO (09:45)
[2022-12-23] MEDS: Sennosides 8.6 MG TABLET PO ×2 (09:45→21:51)
[2022-12-23] MEDS: Enoxaparin Sodium 40 MG/0.4 ML SYRINGE SUBCUT (09:45)
[2022-12-23] MEDS: Amiodarone HCL 200 MG TABLET PO (09:45)
[2022-12-23] MEDS: carvediloL 3.125 MG TABLET PO ×2 (09:45→21:50)
[2022-12-23] MEDS: oxyCODONE HCl Immed Release 5 MG TABLET 2.5 MG PO ×3 (09:46→21:50)
[2022-12-23] MEDS: Acetaminophen 325 MG TABLET 650 MG PO ×2 (09:48→17:45)
[2022-12-23] MEDS: Furosemide 40 MG/4 ML VIAL IVPUSH (10:10)
--- NOTE | 2022-12-23 10:59 | MHC.CM.PN ---
CM ATTEMPTED TO CONTACT PT'S GUARDIAN VALARIE VALDEZ [phone] AT 10:10AM, NO ANSWER AND DETAILED MESSAGE W/PLAN AND CM CONTACT INFO LEFT ON VOICEMAIL. PLAN WILL BE FOR PT TO RETURN TO [facility] WHEN MEDICALLY CLEARED. GUARDIANSHIP ON FILE, PCP GLEN CHEN
[2022-12-23 12:32] LABS: MANUAL DIFF FLAG NO
--- NOTE | 2022-12-23 12:35 | P.PNIM_ITS ---
Subjective Subjective Date of Service: 12/23/22 Interval History: Essentially back to baseline however some shortness of breath this a.m. Review of Systems Unable to obtain Physical Exam 2 Vital Signs: Vital Signs: Last Vital Signs Temp 97.6 F 12/23/22 11:13 Pulse 67 12/23/22 11:13 Resp 20 12/23/22 11:13 BP 102/59 L 12/23/22 11:13 Pulse Ox 97 12/23/22 11:13 O2 Del Method Nasal Cannula 12/23/22 11:13 O2 Flow Rate 4 12/23/22 11:13 FiO2 28 12/23/22 07:13 BMI result Body Mass Index 26.3 Const: Other: Somnolent but arousable Resp: Other: Diminished throughout with scant crackles at bases Cardio: Other: No S4; positive S1-S2; no S3 murmurs rubs or gallops GI: Other: Soft nontender nondistended normoactive bowel sounds Extrem: Other: +edema bilaterally Objective Data Active Medications Acetaminophen (Acetaminophen 325 Mg Tablet) 650 mg PO Q4H PRN PRN Reason: Pain, Mild (Pain Scale 1-3) Last Admin: 12/23/22 09:48 Dose: 650 mg Documented By: HERNANDEZ Al Hydroxide/Mg Hydroxide (Magnesium Hydrox/Alum Hydrox 30 Ml Oral.Susp) 20 ml PO Q4H PRN PRN Reason: Dyspepsia Amiodarone HCl (Amiodarone Hcl 200 Mg Tablet) 200 mg PO DAILY [facility] Last Admin: 12/23/22 09:45 Dose: 200 mg Documented By: HERNANDEZ Artificial Tears (Artificial Tears 15 Ml Drops) 1 drop EYE-BOTH Q8H PRN PRN Reason: Dry Eyes Aspirin (Aspirin Enteric Coated 81 Mg Tablet.Dr) 81 mg PO DAILY [facility] Last Admin: 12/23/22 09:45 Dose: 81 mg Documented By: HERNANDEZ Bicalutamide (Bicalutamide 50 Mg Tablet) 50 mg PO DAILY [facility] Bisacodyl (Bisacodyl 10 Mg Supp.Rect) 10 mg [place] DAILY PRN PRN Reason: Constipation Carvedilol (Carvedilol 3.125 Mg Tablet) 3.125 mg PO BID [facility]; Protocol Last Admin: 12/23/22 09:45 Dose: 3.125 mg Documented By: HERNANDEZ Divalproex Sodium (Divalproex Sodium Sprinkles 125 Mg ) 1,000 mg PO DAILY [facility] Last Admin: 12/23/22 09:44 Dose: 1,000 mg Documented By: HERNANDEZ Enoxaparin Sodium (Enoxaparin Sodium 40 Mg/0.4 Ml Syringe) 40 mg SUBCUT Q24H [facility] Last Admin: 12/23/22 09:45 Dose: 40 mg Documented By: HERNANDEZ Furosemide (Furosemide 20 Mg/2 Ml Vial) 20 mg IVPUSH BID@0900,1800 [facility]; Protocol Last Admin: 12/23/22 10:09 Dose: Not Given Documented By: HERNANDEZ Non-Admin Reason: Physician Held Med Guaifenesin (Guaifenesin 100 Mg/5 Ml Liquid) 10 ml PO Q6H PRN PRN Reason: Cough Last Admin: 12/22/22 21:12 Dose: 10 ml Documented By: PARKER Lactulose (Lactulose 20 Gm/30 Ml Solution) 20 gm PO TID PRN PRN Reason: constipation Lorazepam (Lorazepam 2 Mg/Ml Vial) 1 mg IM Q5M PRN PRN Reason: Seizure Activity Morphine Sulfate (Morphine Sulfate 2 Mg/Ml Cartridge) 1 mg IVPUSH Q4H PRN; Protocol PRN Reason: Pain, Severe (Pain Scale 7-10) Last Admin: 12/22/22 22:45 Dose: 1 mg Documented By: PARKER Omeprazole (Omeprazole 20 Mg ) 20 mg PO DAILY@0630 [facility] Last Admin: 12/23/22 05:18 Dose: Not Given Documented By: PARKER Non-Admin Reason: pt unable to tolerate Oxycodone HCl (Oxycodone Hcl Immed Release 5 Mg Tablet) 2.5 mg PO TID [facility] Last Admin: 12/23/22 09:46 Dose: 2.5 mg Documented By: HERNANDEZ Senna (Sennosides 8.6 Mg Tablet) 8.6 mg PO BID [facility] Last Admin: 12/23/22 09:45 Dose: 8.6 mg Documented By: HERNANDEZ Senna (Sennosides 8.6 Mg Tablet) 8.6 mg PO DAILY PRN PRN Reason: Constipation Sodium Biphosphate/Sodium Phosphate (Sodium Phosphate,[place]-Dibasic 133 Ml Enema) 118 ml [place] DAILY PRN PRN Reason: Constipation Sodium Chloride (0.9 % Sodium Chloride Flush 3 Ml Syringe) 3 ml IVFLUSH QSHIFT [facility] Last Admin: 12/23/22 09:44 Dose: 3 ml Documented By: HERNANDEZ Labs 12/22/22 04:17 12/22/22 04:17 Labs: Laboratory Results - last 24 hr 12/23/22 00:06 VBG pH 7.28 L VBG pCO2 67 VBG pO2 35 VBG HCO3 32 H VBG O2 Saturation 47.0 VBG Base Excess 3.1 Assessment and Plan (1) Acute and chronic respiratory failure with hypoxia: Status: Acute (2) CHF (congestive heart failure): Status: Acute Plan Pt is a [id number]-male with a PMH significant for COPD, CHF, schizophrenia, epilepsy, prostate cancer, HTN, and tardive dyskenisia, who was sent to the ED from his SNF ([facility]) for SOB. He will be admitted for CHF exacerbation ... treatment and further workup. 1.Acute hypoxic respiratory failure requiring BiPAP (likely secondary to acute systolic heart failure) -Lasix 40 mg IV q.12 hours -BiPAP 12/5 at night and p.r.n. -supplemental O2 as necessary, 1L preferred over 2L as pt is very sensitive to supplemental O2 2. History of ventricular tachycardia -continue amiodarone as ordered -monitor on telemetry 3.Seizure -continue home meds -adjust as indicated 4. COPD -continue outpatient therapies -titrate O2 as indicated Requires ongoing hospitalization for IV diuresis and BiPAP therapy Time Spent With Patient Time: Total time managing care of this patient today ____ minutes. Quality Stroke Does the patient have a stroke diagnosis?: No VTE Prior VTE?: No VTE Risk Level:: Medical - moderate - high VTE Device Contraindication: Treatment Not Indicated VTE Drug Contraindication: N/A - Med Ordered
[2022-12-23 12:36] LABS: Basophils Percent Auto 0.2 % (0-2); Eosinophils Percent Auto 0.9 % (0-4); Hematocrit 38.7 % (42.0-52.0); Hemoglobin 12.6 g/dl (14.0-18.0); Lymphocytes Absolute Auto 0.5 X10*3/uL (1.2-4.9); Lymphocytes Percent Auto 12.5 % (20-40); Mean Corpuscular HGB Conc 32.6 g/dl (31.0-36.0); Mean Corpuscular Hemoglobin 31.6 pg (27.0-33.0); Mean Platelet Volume 9.9 fL (9.4-12.4); Monocytes Absolute Auto 0.7 X10*3/uL (0.1-1.2); Monocytes Percent Auto 16.5 % (2-11); Neutrophils Percent Auto 69.9 % (45-73); Platelet Count 158 X10*3/uL (160-400); Red Blood Count 3.99 X10*6/uL (4.60-5.80); White Blood Count 4.3 X10*3/uL (4.8-10.8)
[2022-12-23] MEDS: Bicalutamide 50 MG TABLET PO (13:10)
[2022-12-23] MEDS: Furosemide 20 MG/2 ML VIAL IVPUSH (17:34)
[2022-12-24] VITALS (10 sets, daily range): BP systolic 103–141; BP diastolic 54–73; PULSE 54–67; RESP 13–22; TEMP 36.3–37; O2SAT 89–98
--- NOTE | 2022-12-24 | ECG_ITS ---
Test Reason : abnormal ekg Blood Pressure : / mmHG Vent. Rate : 074 BPM Atrial Rate : 074 BPM P-R Int : 160 ms QRS Dur : 116 ms QT Int : 396 ms P-R-T Axes : 016 -54 -15 degrees QTc Int : 439 ms Sinus rhythm with frequent Premature ventricular complexes Left axis deviation Incomplete right bundle branch block ST & T wave abnormality, consider lateral ischemia Abnormal ECG When compared with ECG of 22-DEC-2022 04:22, Premature ventricular complexes are now Present Incomplete right bundle branch block has replaced Right bundle branch block T wave inversion now evident in Anterior leads QT has shortened Referred By: Fred Epstein Electronically Signed By:DUARTE FLORES
[2022-12-24] MEDS: Omeprazole 20 MG CAPSULE.DR PO (06:12)
[2022-12-24 07:36] LABS: MANUAL DIFF FLAG NO
[2022-12-24 07:44] LABS: Basophils Percent Auto 0.5 % (0-2); Eosinophils Absolute Auto 0.2 X10*3/uL (0.0-0.4); Hematocrit 41.9 % (42.0-52.0); Hemoglobin 13.5 g/dl (14.0-18.0); Imm Gran Abs Auto 0.01 X10*3/uL (0.00-0.03); Imm Gran Pct Auto 0.3 % (0.0-0.4); Lymphocytes Absolute Auto 1.2 X10*3/uL (1.2-4.9); Lymphocytes Percent Auto 31.9 % (20-40); Mean Corpuscular HGB Conc 32.2 g/dl (31.0-36.0); Mean Corpuscular Hemoglobin 31.4 pg (27.0-33.0); Mean Corpuscular Volume 97.4 fL (80.0-98.0); Mean Platelet Volume 9.7 fL (9.4-12.4); Monocytes Absolute Auto 0.7 X10*3/uL (0.1-1.2); Monocytes Percent Auto 18.2 % (2-11); Neutrophils Absolute Auto 1.7 x10*3/uL (2.0-8.3); Neutrophils Percent Auto 44.1 % (45-73); Platelet Count 139 X10*3/uL (160-400); Red Cell Distribution Width 14.4 % (11.0-16.0); White Blood Count 3.8 X10*3/uL (4.8-10.8)
[2022-12-24 08:02] LABS: Alanine Aminotransferase 17 U/L (0-40); Albumin Level 3.5 g/dL (3.5-5.0); Alkaline Phosphatase 53 U/L (39-117); Anion Gap 15 (12-20); Aspartate Amino Transferase 18 U/L (5-37); Bilirubin Total 0.4 mg/dL (0.0-1.0); Blood Urea Nitrogen 26 mg/dL (9-16); Calcium 9.1 mg/dL (8.4-10.2); Carbon Dioxide 33 mmol/L (22-29); Chloride 99 mmol/L (96-108); Creatinine Clr Calc Pharmacy 77.8; Estimated Glomerular Filt Rate > 60; Glucose Fasting 89 mg/dL (60-99); Potassium 4.6 mmol/L (3.3-5.1); Sodium 142 mmol/L (135-145); Total Protein 6.1 g/dL (6.5-8.0)
[2022-12-24] MEDS: Divalproex Sodium Sprinkles 125 MG CAP.DR.SPR 1000 MG PO (09:52)
[2022-12-24] MEDS: Bicalutamide 50 MG TABLET PO (09:53)
[2022-12-24] MEDS: Furosemide 20 MG/2 ML VIAL IVPUSH ×2 (09:53→17:53)
[2022-12-24] MEDS: oxyCODONE HCl Immed Release 5 MG TABLET 2.5 MG PO ×3 (09:53→20:20)
[2022-12-24] MEDS: Amiodarone HCL 200 MG TABLET PO (09:53)
[2022-12-24] MEDS: Aspirin Enteric Coated 81 MG TABLET.DR PO (09:53)
[2022-12-24] MEDS: Sennosides 8.6 MG TABLET PO ×2 (09:53→20:19)
[2022-12-24] MEDS: 0.9 % Sodium Chloride Flush 3 ML SYRINGE IVFLUSH ×3 (09:54→20:21)
[2022-12-24] MEDS: carvediloL 3.125 MG TABLET PO ×2 (09:54→20:23)
[2022-12-24 10:19] LABS: Troponin-I High Sensitivity 38.9 ng/L (<3.5-35.0)
[2022-12-24 10:30] LABS: B Type Natriuretic Peptide 141 pg/mL (<100)
--- NOTE | 2022-12-24 10:32 | MHC.CM.PN ---
PER MD ROUNDS, PT NOT READY TO DC, RECEIVING IV LASIX DCP: RETURN TO [facility] [place] [facility]
[2022-12-24] MEDS: Albuterol/Iprat 2.5/0.5MG 3 ML AMPUL.NEB INHALE ×2 (11:05→14:39)
[2022-12-24] MEDS: Enoxaparin Sodium 40 MG/0.4 ML SYRINGE SUBCUT (11:19)
--- NOTE | 2022-12-24 14:40 | P.PNIM_ITS ---
Subjective Subjective Date of Service: 12/24/22 Interval History: Unable to obtain meaningful history due to mental status however patient is resting comfortably, events from last night noted patient was noted to be tachypneic with bilateral crackles and shortness of breath treated with IV Lasix 40 mg and BiPAP with good response. This morning patient sitting comfortably, hemodynamically stable room air oxygenation 93%. Review of Systems Unable to obtain due to mental status Physical Exam 2 Vital Signs: Vital Signs: Last Vital Signs Temp 98 F 12/24/22 12:00 Pulse 62 12/24/22 12:00 Resp 18 12/24/22 12:00 BP 109/60 12/24/22 12:00 Pulse Ox 93 12/24/22 12:00 O2 Del Method Room Air 12/24/22 12:00 O2 Flow Rate 1 12/24/22 07:39 FiO2 28 12/24/22 03:28 BMI result Body Mass Index 26.3 Const: Other: General nonverbal, no acute distress follow commands. Neck , supple no JVD. CVS regular rate rhythm, Respiratory lungs clear to auscultation, no respiratory distress, few basilar dry crackles and diminished breath sounds Gastrointestinal abdomen soft, non tender, bowel sounds audible, no guarding , no rigidity. Extremities no edema. Neuro nonfocal , moving all 4 extremity Skin no rash Objective Data Active Medications Acetaminophen (Acetaminophen 325 Mg Tablet) 650 mg PO Q4H PRN PRN Reason: Pain, Mild (Pain Scale 1-3) Last Admin: 12/23/22 17:45 Dose: 650 mg Documented By: HERNANDEZ Al Hydroxide/Mg Hydroxide (Magnesium Hydrox/Alum Hydrox 30 Ml Oral.Susp) 20 ml PO Q4H PRN PRN Reason: Dyspepsia Albuterol/Ipratropium (Albuterol/Iprat 2.5/0.5mg 3 Ml Ampul.Neb) 3 ml INHALE RQ6H WHILE AWAKE [facility] Last Admin: 12/24/22 14:39 Dose: 3 ml Documented By: VIDYA Amiodarone HCl (Amiodarone Hcl 200 Mg Tablet) 200 mg PO DAILY [facility] Last Admin: 12/24/22 09:53 Dose: 200 mg Documented By: HERNANDEZ Artificial Tears (Artificial Tears 15 Ml Drops) 1 drop EYE-BOTH Q8H PRN PRN Reason: Dry Eyes Aspirin (Aspirin Enteric Coated 81 Mg Tablet.) 81 mg PO DAILY [facility] Last Admin: 12/24/22 09:53 Dose: 81 mg Documented By: HERNANDEZ Bicalutamide (Bicalutamide 50 Mg Tablet) 50 mg PO DAILY [facility] Last Admin: 12/24/22 09:53 Dose: 50 mg Documented By: HERNANDEZ Bisacodyl (Bisacodyl 10 Mg Supp.Rect) 10 mg [place] DAILY PRN PRN Reason: Constipation Carvedilol (Carvedilol 3.125 Mg Tablet) 3.125 mg PO BID [facility]; Protocol Last Admin: 12/24/22 09:54 Dose: 3.125 mg Documented By: HERNANDEZ Divalproex Sodium (Divalproex Sodium Sprinkles 125 Mg Cap.) 1,000 mg PO DAILY [facility] Last Admin: 12/24/22 09:52 Dose: 1,000 mg Documented By: HERNANDEZ Enoxaparin Sodium (Enoxaparin Sodium 40 Mg/0.4 Ml Syringe) 40 mg SUBCUT Q24H [facility] Last Admin: 12/24/22 11:19 Dose: 40 mg Documented By: HERNANDEZ Furosemide (Furosemide 20 Mg/2 Ml Vial) 20 mg IVPUSH BID@0900,1800 [facility]; Protocol Last Admin: 12/24/22 09:53 Dose: 20 mg Documented By: HERNANDEZ Guaifenesin (Guaifenesin 100 Mg/5 Ml Liquid) 10 ml PO Q6H PRN PRN Reason: Cough Last Admin: 12/22/22 21:12 Dose: 10 ml Documented By: PARKER Lactulose (Lactulose 20 Gm/30 Ml Solution) 20 gm PO TID PRN PRN Reason: constipation Lorazepam (Lorazepam 2 Mg/Ml Vial) 1 mg IM Q5M PRN PRN Reason: Seizure Activity Morphine Sulfate (Morphine Sulfate 2 Mg/Ml Cartridge) 1 mg IVPUSH Q4H PRN; Protocol PRN Reason: Pain, Severe (Pain Scale 7-10) Last Admin: 12/22/22 22:45 Dose: 1 mg Documented By: PARKER Omeprazole (Omeprazole 20 Mg Capsule.) 20 mg PO DAILY@0630 [facility] Last Admin: 12/24/22 06:12 Dose: 20 mg Documented By: AMBER Oxycodone HCl (Oxycodone Hcl Immed Release 5 Mg Tablet) 2.5 mg PO TID [facility] Last Admin: 12/24/22 09:53 Dose: 2.5 mg Documented By: HERNANDEZ Senna (Sennosides 8.6 Mg Tablet) 8.6 mg PO BID [facility] Last Admin: 12/24/22 09:53 Dose: 8.6 mg Documented By: HERNANDEZ Senna (Sennosides 8.6 Mg Tablet) 8.6 mg PO DAILY PRN PRN Reason: Constipation Sodium Biphosphate/Sodium Phosphate (Sodium Phosphate,[place]-Dibasic 133 Ml Enema) 118 ml [place] DAILY PRN PRN Reason: Constipation Sodium Chloride (0.9 % Sodium Chloride Flush 3 Ml Syringe) 3 ml IVFLUSH QSHIFT [facility] Last Admin: 12/24/22 09:54 Dose: 3 ml Documented By: HERNANDEZ Labs 12/24/22 06:25 12/24/22 06:25 Labs: Laboratory Results - last 24 hr 12/24/22 06:25 MCV 97.4 MCH 31.4 MCHC 32.2 RDW 14.4 Plt Count 139 L MPV 9.7 Immature Gran % (Auto) 0.3 Neut % (Auto) 44.1 L Lymph % (Auto) 31.9 [place] % (Auto) 18.2 H Eos % (Auto) 5.0 H Baso % (Auto) 0.5 Lymph # (Auto) 1.2 [place] # (Auto) 0.7 Eos # (Auto) 0.2 Baso # (Auto) 0.0 Abs Immat Gran (auto) 0.01 Absolute Neuts (auto) 1.7 L Absolute Nucleated RBC 0.000 Nucleated RBC % (auto) 0.0 Anion Gap 15 Estim Creat Clear Calc 77.8 Estimated GFR > 60 Fasting Glucose 89 Calcium 9.1 D Total Bilirubin 0.4 AST 18 ALT 17 Alkaline Phosphatase 53 B-Natriuretic Peptide 141 H Total Protein 6.1 L Albumin 3.5 Assessment and Plan (1) Acute and chronic respiratory failure with hypoxia: Status: Acute (2) CHF (congestive heart failure): Status: Acute Plan [id number] with a PMH significant for COPD, CHF, schizophrenia, epilepsy, prostate cancer, HTN, and tardive dyskenisia, who was sent to the ED from [facility] in [place] for SOB. He will be admitted for CHF exacerbation ... treatment and further workup. 1.Acute hypoxic respiratory failure requiring BiPAP (likely secondary to acute systolic heart failure) on Lasix 20 mg IV q.12 hours -BiPAP 12/5 at night and p.r.n. -supplemental O2 as necessary, 1L preferred over 2L as pt is very sensitive to supplemental O2 -BNP improved from 527 to 141, bicarb 33, will transition to by mouth Lasix at a.m. monitor electrolytes 2. History of ventricular tachycardia with severe cardiomyopathy -continue amiodarone as ordered -monitor on telemetry, due to mental status he was not felt to be a good candidate for invasive workup 3.Seizure -continue Depakote, seizure precautions 4. COPD no acute exacerbation -continue outpatient therapies -titrate O2 as indicated 5. Elevated troponin likely due to demand ischemia due to hypoxia, EKG showed lateral ischemia continue aspirin, beta-blockers, check lipid profile, patient has been evaluated in the past by Cardiology and felt not suitable for any invasive procedure like cardiac catheterization mainly due to mental health issues. Requires ongoing hospitalization for IV diuresis and BiPAP therapy Time Spent With Patient Time: Total time managing care of this patient today ____ minutes. Quality Stroke Does the patient have a stroke diagnosis?: No VTE Prior VTE?: No VTE Risk Level:: Medical - moderate - high VTE Device Contraindication: Treatment Not Indicated VTE Drug Contraindication: N/A - Med Ordered
[2022-12-24] MEDS: Acetaminophen 325 MG TABLET 650 MG PO ×2 (15:36→20:21)
[2022-12-25 03:54] VITALS: BP 120/58; PULSE 54; RESP 18; TEMP 36.3; O2SAT 95
[2022-12-25] MEDS: Omeprazole 20 MG CAPSULE.DR PO (06:01)
--- NOTE | 2022-12-25 06:19 | PC.NURSE ---
Assumed care at 19:00 (12/24). Pt noted to be 82% on RA while at rest on assuming care. Per handoff report pt weaned to RA during the day from previous 1L nc. 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 Lungs rhonchorous on auscultation. Manual cpt performed and pt placed on 1L nc. Breathing was evening and unlabored without distress, Spo2 improved to 93-94% on 1L nc. Covering Dr. Jo notified with o2 order in place and CXR obtained. Spo2 goal 88-92% okay per MD for pt hx copd. Pt refused HS Bipap overnight despite attempts at educating on importance; maintained on 1L nc. MD made aware.
[2022-12-25 06:46] LABS: MANUAL DIFF FLAG NO
[2022-12-25 07:06] LABS: Basophils Percent Auto 0.5 % (0-2); Eosinophils Absolute Auto 0.2 X10*3/uL (0.0-0.4); Eosinophils Percent Auto 4.2 % (0-4); Hematocrit 38.4 % (42.0-52.0); Hemoglobin 12.6 g/dl (14.0-18.0); Lymphocytes Percent Auto 45.5 % (20-40); Mean Corpuscular HGB Conc 32.8 g/dl (31.0-36.0); Mean Corpuscular Hemoglobin 31.4 pg (27.0-33.0); Mean Corpuscular Volume 95.8 fL (80.0-98.0); Mean Platelet Volume 9.5 fL (9.4-12.4); Monocytes Absolute Auto 0.6 X10*3/uL (0.1-1.2); Monocytes Percent Auto 14.1 % (2-11); Neutrophils Absolute Auto 1.6 x10*3/uL (2.0-8.3); Neutrophils Percent Auto 35.7 % (45-73); Platelet Count 142 X10*3/uL (160-400); Red Blood Count 4.01 X10*6/uL (4.60-5.80); Red Cell Distribution Width 14.1 % (11.0-16.0); White Blood Count 4.3 X10*3/uL (4.8-10.8)
[2022-12-25 07:15] LABS: Alanine Aminotransferase 15 U/L (0-40); Albumin Level 3.4 g/dL (3.5-5.0); Alkaline Phosphatase 52 U/L (39-117); Anion Gap 17 (12-20); Aspartate Amino Transferase 17 U/L (5-37); Bilirubin Total 0.3 mg/dL (0.0-1.0); Blood Urea Nitrogen 24 mg/dL (9-16); Calcium 8.9 mg/dL (8.4-10.2); Carbon Dioxide 32 mmol/L (22-29); Chloride 95 mmol/L (96-108); Cholesterol 142 mg/dL (<200); Creatinine Clr Calc Pharmacy 80.8; Estimated Glomerular Filt Rate > 60; Glucose Fasting 94 mg/dL (60-99); HDL Cholesterol 43 mg/dL (>40); LDL Cholesterol Calculated 77 mg/dL (<100); Potassium 3.8 mmol/L (3.3-5.1); Sodium 140 mmol/L (135-145); Total Protein 5.9 g/dL (6.5-8.0); Triglycerides 113 mg/dL (<150)
[2022-12-25] MEDS: Albuterol/Iprat 2.5/0.5MG 3 ML AMPUL.NEB INHALE (07:37)
[2022-12-25 07:39] VITALS: PULSE 66; RESP 20; O2SAT 95
[2022-12-25 07:41] VITALS: BP 115/57; PULSE 51; RESP 18; TEMP 36.1; O2SAT 94
[2022-12-25] MEDS: Enoxaparin Sodium 40 MG/0.4 ML SYRINGE SUBCUT (09:49)
[2022-12-25] MEDS: Divalproex Sodium Sprinkles 125 MG CAP.DR.SPR 1000 MG PO (09:49)
[2022-12-25] MEDS: oxyCODONE HCl Immed Release 5 MG TABLET 2.5 MG PO (09:49)
[2022-12-25] MEDS: Amiodarone HCL 200 MG TABLET PO (09:50)
[2022-12-25] MEDS: carvediloL 3.125 MG TABLET PO (09:50)
[2022-12-25] MEDS: Furosemide 20 MG/2 ML VIAL IVPUSH (09:50)
[2022-12-25] MEDS: Sennosides 8.6 MG TABLET PO (09:50)
[2022-12-25] MEDS: 0.9 % Sodium Chloride Flush 3 ML SYRINGE IVFLUSH (09:51)
[2022-12-25] MEDS: Bicalutamide 50 MG TABLET PO (09:54)
--- NOTE | 2022-12-25 10:16 | P.CONCA_ITS ---
History of Present Illness History of Present Illness Date of Service: 12/25/22 Chief complaint: Acute on chronic hypoxic resp failure Narrative: I was consulted to see Prateek in cardiology consultation today for acute hypoxemic respiratory failure and congestive heart failure. Patient developed sudden shortness of breath yesterday along with crackles. Responded to BiPAP therapy and Lasix. Despite medical technologist microbiology history is very limited due to patient's speech impairment. Cannot obtain much history from the patient. Known to have significant cardiomyopathy LVEF of 10% with ventricular tachycardia. Patient has significant advanced issues with dementia and cognitive impairment as well as COPD. Also has history of prostate cancer. Review of Systems 2 Review of Systems: Yes Unobtainable due to mental status PMFSH Past Medical History Medical History CHF (congestive heart failure) Ischemic congestive cardiomyopathy Ventricular tachycardia Pneumonia due to Acinetobacter species Respiratory failure with hypoxia and hypercapnia Diabetes type 2, controlled CHF (congestive heart failure) Hypertension GERD (gastroesophageal reflux disease) Dementia Epilepsy Dysphagia Spinal stenosis Cervicalgia Muscle weakness (generalized) COPD (chronic obstructive pulmonary disease) Schizo affective schizophrenia Family History Family History Mother Cancer Social History Social History Household Members: Other Housing: [facility] Other:: [facility] Are you a primary home care giver to a significant other at home: No Unable to assess alcohol history related to: Unable to respond Alcohol intake: unknown Patient Tobacco Use Status: Never used Tobacco Smoked in Last 30 Days: No Second Hand Smoke Exposure: No Use of substances other than those prescribed or required for medical reasons: Unable to respond Currently Displaying Signs/Symptoms of Drug Intoxication Withdrawal: No Advance Directives: Yes Advance Directives on File: Yes Advance Directives Date on File: 08/14/22 Nutrition Risks: On aspiration precautions service: No Current occupational status: disabled Meds Allergies Allergy/AdvReac Type Severity Reaction Status Date / Time tuberculin, purified protein Allergy Unknown UNKNOWN Verified 11/12/22 10:11 deriva [Tuberculin,Purif.Prot.Deriv.] Active Medications: Current Medications Acetaminophen (Acetaminophen 325 Mg Tablet) 650 mg PO Q4H PRN PRN Reason: Pain, Mild (Pain Scale 1-3) Last Admin: 12/24/22 20:21 Dose: 650 mg Al Hydroxide/Mg Hydroxide (Magnesium Hydrox/Alum Hydrox 30 Ml Oral.Susp) 20 ml PO Q4H PRN PRN Reason: Dyspepsia Albuterol/Ipratropium (Albuterol/Iprat 2.5/0.5mg 3 Ml Ampul.Neb) 3 ml INHALE RQ6H WHILE AWAKE [facility] Last Admin: 12/25/22 07:37 Dose: 3 ml Amiodarone HCl (Amiodarone Hcl 200 Mg Tablet) 200 mg PO DAILY [facility] Last Admin: 12/24/22 09:53 Dose: 200 mg Artificial Tears (Artificial Tears 15 Ml Drops) 1 drop EYE-BOTH Q8H PRN PRN Reason: Dry Eyes Aspirin (Aspirin Enteric Coated 81 Mg Tablet.Dr) 81 mg PO DAILY [facility] Last Admin: 12/24/22 09:53 Dose: 81 mg Bicalutamide (Bicalutamide 50 Mg Tablet) 50 mg PO DAILY [facility] Last Admin: 12/24/22 09:53 Dose: 50 mg Bisacodyl (Bisacodyl 10 Mg Supp.Rect) 10 mg [place] DAILY PRN PRN Reason: Constipation Carvedilol (Carvedilol 3.125 Mg Tablet) 3.125 mg PO BID [facility]; Protocol Last Admin: 12/24/22 20:23 Dose: 3.125 mg Divalproex Sodium (Divalproex Sodium Sprinkles 125 Mg Cap.Dr.Spr) 1,000 mg PO DAILY [facility] Last Admin: 12/24/22 09:52 Dose: 1,000 mg Enoxaparin Sodium (Enoxaparin Sodium 40 Mg/0.4 Ml Syringe) 40 mg SUBCUT Q24H [facility] Last Admin: 12/24/22 11:19 Dose: 40 mg Furosemide (Furosemide 20 Mg/2 Ml Vial) 20 mg IVPUSH BID@0900,1800 [facility]; Protocol Last Admin: 12/24/22 17:53 Dose: 20 mg Guaifenesin (Guaifenesin 100 Mg/5 Ml Liquid) 10 ml PO Q6H PRN PRN Reason: Cough Last Admin: 12/22/22 21:12 Dose: 10 ml Lactulose (Lactulose 20 Gm/30 Ml Solution) 20 gm PO TID PRN PRN Reason: constipation Lorazepam (Lorazepam 2 Mg/Ml Vial) 1 mg IM Q5M PRN PRN Reason: Seizure Activity Morphine Sulfate (Morphine Sulfate 2 Mg/Ml Cartridge) 1 mg IVPUSH Q4H PRN; Protocol PRN Reason: Pain, Severe (Pain Scale 7-10) Last Admin: 12/22/22 22:45 Dose: 1 mg Omeprazole (Omeprazole 20 Mg Capsule.Dr) 20 mg PO DAILY@0630 [facility] Last Admin: 12/25/22 06:01 Dose: 20 mg Oxycodone HCl (Oxycodone Hcl Immed Release 5 Mg Tablet) 2.5 mg PO TID [facility] Last Admin: 12/24/22 20:20 Dose: 2.5 mg Senna (Sennosides 8.6 Mg Tablet) 8.6 mg PO BID [facility] Last Admin: 12/24/22 20:19 Dose: 8.6 mg Senna (Sennosides 8.6 Mg Tablet) 8.6 mg PO DAILY PRN PRN Reason: Constipation Sodium Biphosphate/Sodium Phosphate (Sodium Phosphate,[place]-Dibasic 133 Ml Enema) 118 ml [place] DAILY PRN PRN Reason: Constipation Sodium Chloride (0.9 % Sodium Chloride Flush 3 Ml Syringe) 3 ml IVFLUSH QSHIFT [facility] Last Admin: 12/24/22 20:21 Dose: 3 ml Home Medications Medication Instructions Recorded Confirmed Last Taken Type acetaminophen 325 mg capsule 650 mg PO Q4H PRN Pain 01/19/20 12/22/22 Unknown History bicalutamide 50 mg tablet 50 mg PO DAILY 01/19/20 12/22/22 08/22/22 History furosemide 20 mg tablet (Lasix) 20 mg PO DAILY 01/19/20 12/22/22 08/22/22 History levalbuterol tartrate 45 2 puff inhalation Q4H PRN cough 01/19/20 12/22/22 Unknown History mcg/actuation aerosol inhaler lorazepam 2 mg/mL injection 1 mg IM Q5M PRN Seizure Activity 01/19/20 12/22/22 Unknown History solution (Ativan) omeprazole 20 mg capsule,delayed 20 mg PO DAILY@0630 01/19/20 12/22/22 08/22/22 History release sennosides 8.6 mg tablet (senna) 8.6 mg PO DAILY PRN Constipation 01/19/20 12/22/22 Unknown History guaifenesin 100 mg/5 mL oral liquid 200 mg PO Q6H PRN Cough 12/21/21 12/22/22 Unknown History sodium phosphates 19 gram-7 118 ml [place] DAILY PRN Constipation 12/21/21 12/22/22 Unknown History gram/118 mL enema (Fleet Enema) aluminum-mag hydroxide-simethicone 20 ml PO Q4H PRN Dyspepsia 03/07/22 12/22/22 Unknown History 200 mg-200 mg-20 mg/5 mL oral susp dextran 70-hypromellose (PF) 0.1 1 drp ophthalmic (eye) Q8H PRN Dry 03/07/22 12/22/22 Unknown History %-0.3 % eye drops in a dropperette Eyes (Artificial Tears (PF)) aspirin 81 mg tablet,delayed 81 mg PO DAILY 08/08/22 12/22/22 08/22/22 History release bisacodyl 10 mg rectal suppository 10 mg [place] DAILY PRN Constipation 08/08/22 12/22/22 Unknown History divalproex 125 mg capsule,delayed 1,000 mg PO DAILY 08/08/22 12/22/22 08/22/22 History release sprinkle doxycycline hyclate 50 mg capsule 50 mg PO DAILY 08/08/22 12/22/22 08/22/22 History levalbuterol tartrate 45 2 puff inhalation BID 08/08/22 12/22/22 08/22/22 History mcg/actuation aerosol inhaler sennosides 8.6 mg tablet (senna) 8.6 mg PO BID 08/08/22 12/22/22 08/22/22 History amiodarone 200 mg tablet 200 mg PO DAILY 08/23/22 12/22/22 Unknown History naloxone 4 mg/actuation nasal 4 mg intranasal Q3M PRN Opioid 12/22/22 12/22/22 Unknown History spray (Narcan) Overdose oxycodone 5 mg tablet 2.5 mg PO TID 12/22/22 12/22/22 Unknown History Physical Exam 2 Vital Signs: Vital Signs: Last Vital Signs Temp 97.0 F 12/25/22 07:41 Pulse 51 12/25/22 07:41 Resp 18 12/25/22 07:41 BP 115/57 L 12/25/22 07:41 Pulse Ox 94 12/25/22 07:41 O2 Del Method Nasal Cannula 12/25/22 07:41 O2 Flow Rate 2 12/25/22 07:41 FiO2 28 12/24/22 03:28 BMI result Body Mass Index 26.3 Const: General: alert and awake HEENT: Head: Yes normocephalic and Yes atraumatic Neck: Neck: Yes trachea midline, Yes supple and Yes no JVD Resp: Effort & Inspection: decreased respiratory effort Auscultation: other (Coarse breath sounds at bases) Cardio: Palpation: abnormal PMI displaced PMI Rhythm: abnormal rhythm with ectopic beats Heart sounds: S1 normal heart sound present and S2 normal heart sound present GI: Auscultation: normal bowel sounds Skin: General skin exam: ecchymosis Objective Labs and Meds 12/25/22 06:36 12/25/22 06:36 Lab results: Laboratory Results - last 24 hr 12/24/22 12/25/22 06:25 06:36 WBC 4.3 L RBC 4.01 L Hgb 12.6 L Hct 38.4 L MCV 95.8 MCH 31.4 MCHC 32.8 RDW 14.1 Plt Count 142 L MPV 9.5 Immature Gran % (Auto) 0.0 Neut % (Auto) 35.7 L Lymph % (Auto) 45.5 H [place] % (Auto) 14.1 H Eos % (Auto) 4.2 H Baso % (Auto) 0.5 Lymph # (Auto) 2.0 [place] # (Auto) 0.6 Eos # (Auto) 0.2 Baso # (Auto) 0.0 Abs Immat Gran (auto) 0.00 Absolute Neuts (auto) 1.6 L Absolute Nucleated RBC 0.000 Nucleated RBC % (auto) 0.0 Sodium 140 Potassium 3.8 Chloride 95 L Carbon Dioxide 32 H Anion Gap 17 BUN 24 H Creatinine 0.79 Estim Creat Clear Calc 80.8 Estimated GFR > 60 Random Glucose Cancelled Fasting Glucose 94 Calcium 8.9 Total Bilirubin 0.3 AST 17 ALT 15 Alkaline Phosphatase 52 Troponin I High Sens 38.9 H D B-Natriuretic Peptide 141 H Total Protein 5.9 L Albumin 3.4 L Triglycerides 113 Cholesterol 142 LDL Cholesterol, Calc 77 HDL Cholesterol 43 Imaging Radiologist's impression: Impressions Chest X-Ray 12/24/22 21:52 IMPRESSION: Stable chest x-ray exam. Assessment and Plan (1) Acute congestive heart failure: Status: Acute Acute congestive heart failure which has resolved not with therapy, patient does appear to be in heart failure at this point time breathing comfortably. Troponin elevation related to acute congestive heart failure not related to acute coronary syndrome. Also has significant amount of ventricular arrhythmias which is expected. Already on amiodarone therapy. Overall he has significant LV systolic dysfunction is prognosis is limited and guarded. He is likely to have intermittent episodes of heart failure. Continue carvedilol for neurohormonal modulation. Can switch to Lasix 40 mg daily. Also add valsartan 20 mg b.i.d. to his regimen for afterload reduction neurohormonal modulation. Overall blood pressure is a limiting factor for up titrating his neurohormonal modulation but can be gradually uptitrated. He is likely to have recurrent hospitalization related to decompensated congestive heart failure. Management will be conservative given his advanced cognitive dysfunction and other multiple comorbidities. Will sign of the case at this point time. Thank you for allowing me to partake in his care Time Spent With Patient Time: Total time managing care of this patient today ____ minutes. Procedures Date of Service Date of Service: 12/25/22
--- NOTE | 2022-12-25 10:18 | P.DS_ITS ---
DS: Providers Provider Date of Service: 12/25/22 Date of admission: 12/22/22 10:47 Primary care physician: Richard Castillo DO Consults: 12/24/22 09:15 Consult to Cardiology Routine Consulting Provider: Pernell Cisneros Reason for consultation: chf/abnormal ekg Has provider been notified: No DS: Diagnosis Discharge Diagnosis (1) Acute and chronic respiratory failure with hypoxia: Status: Acute (2) CHF (congestive heart failure): Status: Acute DS: Summary Hospital Course Hospital Course: Date of Service: 12/22/22 Chief Complaint: Respiratory distress [id number] with a PMH significant for COPD, CHF poor ejection fraction 10- 15%, schizophrenia, epilepsy, prostate cancer, HTN, and tardive dyskenisia, who was sent to the ED from his SNF ([facility]) for SOB saturating 70% on room air patient is a full code and use CPAP in the nighttime. When EMS arrived patient blood pressure 161/113 1/2 inch of nitropaste was applied by EMS on arrival patient's blood pressure was 154/89 saturating 100% on BiPAP 50% FiO2. In the ER; able to be weaned off BiPAP O2 via mask. Hospital course: [id number]-male with a PMH significant for COPD, CHF, schizophrenia, epilepsy, prostate cancer, HTN, and tardive dyskenisia, who was sent to the ED from [facility] for SOB and was admitted for CHF exacerbation 1.Acute hypoxic respiratory failure requiring BiPAP (likely secondary to acute systolic heart failure), patient admitted to medical floor treated intravenous Lasix patient responded well to above treatment BNP improved from 527 to 141, renal function remains stable, bicarb 32, will transition to by mouth Lasix , and discharge back to [facility], patient weaned off oxygen with stable finger oximetry of 92% on room air, patient continued on all home medications including amiodarone and Coreg with history of ventricular tachycardia with severe cardiomyopathy EF of 10%, patient noted to have elevated troponin likely due to demand ischemia due to hypoxia, EKG showed lateral ischemia, LDL 77 patient evaluated by Cardiology and felt not suitable for any invasive procedure like cardiac catheterization mainly due to mental health iss ues, continue asa and coreg. 2.Seizure disorder, continue Depakote, seizure precautions 3. COPD no acute exacerbation continue home inhalers Time Spent with Patient Time attestation: Total time managing care of this patient today ____ minutes. Discharge coordination time: Greater than 30 minutes Quality: Safe Use of Opioids Does Pt have an Active Cancer Diagnosis on the Problem List?: No Quality: Stroke Does the patient have a stroke diagnosis?: No Physical Exam Vital Signs: Vital Signs: Last Vital Signs Temp 97.0 F 12/25/22 07:41 Pulse 51 12/25/22 07:41 Resp 18 12/25/22 07:41 BP 115/57 L 12/25/22 07:41 Pulse Ox 94 12/25/22 07:41 O2 Del Method Nasal Cannula 12/25/22 07:41 O2 Flow Rate 2 12/25/22 07:41 FiO2 28 12/24/22 03:28 BMI result Body Mass Index 26.3 Const: Other: General nonverbal, no acute distress follow commands. Neck , supple no JVD. CVS regular rate rhythm, Respiratory lungs clear to auscultation, no respiratory distress, diminished breath sounds Gastrointestinal abdomen soft, non tender, bowel sounds audible, no guarding , no rigidity. Extremities no edema. Neuro moving all 4 extremity Skin no rash DS: Data Data Completed and Pending Completed studies during hospitalization [Text1]: Procedures Assistance with Respiratory Ventilation, Less than 24 Consecutive Hours, Continuous Positive Airway Pressure (09/04/22) Insertion of Infusion Device into Lower Vein, Percutaneous Approach (09/04/22) Insertion of Infusion Device into Right Atrium, Percutaneous Approach (08/23/22) Insertion of Infusion Device into Superior Vena Cava, Percutaneous Approach (08/08/22) Introduction of Vasopressor into Central Vein, Percutaneous Approach (09/04/22) [place] of Cardiac Rhythm, Single (08/08/22) Ultrasonography of Superior Vena Cava, Guidance (08/23/22) Labs on day of discharge: Laboratory Results - last 24 hr 12/24/22 12/25/22 06:25 06:36 WBC 4.3 L RBC 4.01 L Hgb 12.6 L Hct 38.4 L MCV 95.8 MCH 31.4 MCHC 32.8 RDW 14.1 Plt Count 142 L MPV 9.5 Immature Gran % (Auto) 0.0 Neut % (Auto) 35.7 L Lymph % (Auto) 45.5 H [place] % (Auto) 14.1 H Eos % (Auto) 4.2 H Baso % (Auto) 0.5 Lymph # (Auto) 2.0 [place] # (Auto) 0.6 Eos # (Auto) 0.2 Baso # (Auto) 0.0 Abs Immat Gran (auto) 0.00 Absolute Neuts (auto) 1.6 L Absolute Nucleated RBC 0.000 Nucleated RBC % (auto) 0.0 Sodium 140 Potassium 3.8 Chloride 95 L Carbon Dioxide 32 H Anion Gap 17 BUN 24 H Creatinine 0.79 Estim Creat Clear Calc 80.8 Estimated GFR > 60 Random Glucose Cancelled Fasting Glucose 94 Calcium 8.9 Total Bilirubin 0.3 AST 17 ALT 15 Alkaline Phosphatase 52 Troponin I High Sens 38.9 H D B-Natriuretic Peptide 141 H Total Protein 5.9 L Albumin 3.4 L Triglycerides 113 Cholesterol 142 LDL Cholesterol, Calc 77 HDL Cholesterol 43 Discharge Plan Discharge Anticipated Discharge Date/Time: 12/25/22 10:18 Patient Disposition: er [facility] Discharge Diagnosis: Acute hypoxic respiratory failure Acute systolic heart failure Elevated troponin Referrals: Physician,Unknown J [Physician] - 1 Week Discharge Medications: Continued acetaminophen 325 mg Capsule 650 mg PO Q4H PRN (Reason: Pain) bicalutamide 50 mg Tablet 50 mg PO DAILY lorazepam [Ativan] 2 mg/mL Solution 1 mg IM Q5M PRN (Reason: Seizure Activity) Rx Instructions: may repeat Q 5 minutes x 3 omeprazole 20 mg Capsule,Delayed Release(Dr/Ec) 20 mg PO DAILY@0630 furosemide [Lasix] 20 mg Tablet 20 mg PO DAILY Hold Instructions: Resume on 08/31/22. levalbuterol tartrate 45 mcg/actuation Hfa Aerosol Inhaler 2 puff INHALATION Q4H PRN (Reason: cough) sennosides [senna] 8.6 mg Tablet 8.6 mg PO DAILY PRN (Reason: Constipation) guaifenesin 100 mg/5 mL Liquid 200 mg PO Q6H PRN (Reason: Cough) Fleet Enema 19-7 gram/118 mL Enema 118 ml [place] DAILY PRN (Reason: Constipation) alum-mag hydroxide-simeth 200-200-20 mg/5 mL Suspension 20 ml PO Q4H PRN (Reason: Dyspepsia) Artificial Tears (PF) 0.1-0.3 % Dropperette 1 drp OPHTHALMIC (EYE) Q8H PRN (Reason: Dry Eyes) amiodarone 200 mg tablet 200 mg PO DAILY sennosides [senna] 8.6 mg Tablet 8.6 mg PO BID doxycycline hyclate 50 mg capsule 50 mg PO DAILY Rx Instructions: cellulitis prophylaxis aspirin 81 mg Tablet,Delayed Release (Dr/Ec) 81 mg PO DAILY bisacodyl 10 mg Suppository 10 mg [place] DAILY PRN (Reason: Constipation) levalbuterol tartrate 45 mcg/actuation HFA aerosol inhaler 2 puff inhalation BID divalproex 125 mg capsule, delayed rel sprinkle 1,000 mg PO DAILY carvedilol 3.125 mg Tablet 3.125 mg PO BID Qty: 0 0RF Protocol: Hold for SBP/HR < HOLD for SBP < : 90 HOLD for HR < : 60 lactulose 10 gram/15 mL solution 30 ml PO TID PRN (Reason: constipation) Qty: 237 0RF naloxone [Narcan] 4 mg/actuation [place],Non-Aerosol 4 mg INTRANASAL Q3M PRN (Reason: Opioid Overdose) Rx Instructions: spray 1 dose into ONE nostril; alternate nostrils w each dose until help arrives oxycodone 5 mg tablet 2.5 mg PO TID Discharge Orders: Discharge Order (Routine); Ordered 12/25/22 Ordered By: Fred Epstein Diet: Advance to usual diet Activity on Discharge: As tolerated Stand Alone Forms: Patient Portal Discharge page Care Plan Goals: Continue all home medications, hypoxia resolved continue CPAP at night Continue home dose of Lasix, may increase dose if noted to have weight gain, shortness of breath or leg edema Health Concerns: Aspiration risk/recurrent CHF Plan of Treatment: Outpatient follow-up with PCP Assessment: As above
--- NOTE | 2022-12-25 11:29 | PC.NURSE ---
Menard cath removed at 11:20, pt tolerated well. PT due to void at 17:20
[2022-12-25 11:53] VITALS: BP 112/60; PULSE 57; RESP 22; TEMP 36.4; O2SAT 93
--- NOTE | 2022-12-25 12:20 | MHC.CM.PN ---
Patient has been medically cleared for dc back to LTC. Patient will return to LTC @ [facility] today at 2PM, via [facility]. CM left a detailed message for Guardian/Bethanie @ [phone], informing her of the dc plan. Last IMM addressed on 12/23/2022.
== END 2022-12-25 14:32 | disposition skilled nursing facility (03) | DRG 291 ==
LOC: HO.ED 09:40 → HO.EDOVER 10:51 → HO.IMC 11:14
PROVIDERS: Internal Medicine; Student in an Organized Health Care Education/Training Program; Admitting Provider Hospitalist; Emergency Provider Emergency Medicine Emergency Medical Services; PCP Hospitalist; Visit Provider Hospitalist
DX: I11.0 Hypertensive heart disease with heart failure (principal); I50.21 Acute systolic (congestive) heart failure; J96.21 Acute and chronic respiratory failure with hypoxia; I47.20 Ventricular tachycardia, unspecified; I24.8 Other forms of acute ischemic heart disease; F20.9 Schizophrenia, unspecified; I42.9 Cardiomyopathy, unspecified; J44.9 Chronic obstructive pulmonary disease, unspecified; G40.909 Epilepsy, unspecified, not intractable, without status epilepticus; Z20.822 Contact with and (suspected) exposure to COVID-19; Z23 Encounter for immunization; Z85.46 Personal history of malignant neoplasm of prostate; Z79.82 Long term (current) use of aspirin; Z79.899 Other long term (current) drug therapy
CPT/HCPCS: 36415; 71045; 80048; 80053; 80061; 82803; 83880; 84484; 85025; 85610; 85730; 87635; 90686; 92950; 93005; 94640; 94660; 99285; C1758; J1650; J1940; J2270

== ENCOUNTER → 2022-12-22 10:47 | Outpatient (BNV) | payer MEDICARE, MEDICAID, SELFPAY | PROVIDERS: Admitting Provider Hospitalist; Emergency Provider Emergency Medicine Emergency Medical Services; PCP Hospitalist; Visit Provider Internal Medicine Cardiovascular Disease | DX: I50.9 Heart failure, unspecified (principal) | CPT/HCPCS: 99222 ==

== ENCOUNTER → 2022-12-22 10:47 | Outpatient (BNV) | payer MEDICARE, MEDICAID, SELFPAY | PROVIDERS: Admitting Provider Hospitalist; Emergency Provider Emergency Medicine Emergency Medical Services; Visit Provider Hospitalist | DX: J96.21 Acute and chronic respiratory failure with hypoxia (principal); I50.21 Acute systolic (congestive) heart failure | CPT/HCPCS: 99223; 99233; 99239 ==

== ENCOUNTER 2023-01-22 13:17 | Inpatient (IN) | payer MEDICARE, MEDICAID, SELFPAY ==
[2023-01-22] VITALS (14 sets, daily range): BP systolic 105–177; BP diastolic 59–129; PULSE 52–110; RESP 17–36; TEMP 35.6–37.2; O2SAT 80–99; BMI 26.5; BMI 26.2; BMI 26.0
--- NOTE | ~2023-01-22 | XR_ITS ---
EXAMINATION: XR CHEST CLINICAL INFORMATION: Acute shortness of breath COMPARISON: None available. TECHNIQUE: Frontal view of the chest was obtained. FINDINGS: The lungs are well-expanded and clear. The heart size and pulmonary vascularity is normal. No gross bony abnormalities seen. XR/XR chest 1V IMPRESSION: Unremarkable chest examination.
--- NOTE | 2023-01-22 13:23 | ECG_ITS ---
Test Reason : DYSPNEA Blood Pressure : / mmHG Vent. Rate : 090 BPM Atrial Rate : 090 BPM P-R Int : 184 ms QRS Dur : 134 ms QT Int : 400 ms P-R-T Axes : 059 262 041 degrees QTc Int : 489 ms Normal sinus rhythm Right bundle branch block Abnormal ECG When compared with ECG of 24-DEC-2022 09:39, Premature ventricular complexes are no longer Present T wave inversion no longer evident in Anterolateral leads Referred By: Darren Marsh Electronically Signed By:KADE GUO MD
[2023-01-22 13:41] LABS: MANUAL DIFF FLAG NO
[2023-01-22 13:55] LABS: Basophils Percent Auto 0.3 % (0-2); Eosinophils Absolute Auto 0.3 X10*3/uL (0.0-0.4); Eosinophils Percent Auto 4.6 % (0-4); Hematocrit 46.7 % (42.0-52.0); Hemoglobin 15.6 g/dl (14.0-18.0); Imm Gran Abs Auto 0.01 X10*3/uL (0.00-0.03); Imm Gran Pct Auto 0.2 % (0.0-0.4); Lymphocytes Percent Auto 34.5 % (20-40); Mean Corpuscular HGB Conc 33.4 g/dl (31.0-36.0); Mean Corpuscular Hemoglobin 31.6 pg (27.0-33.0); Mean Corpuscular Volume 94.5 fL (80.0-98.0); Mean Platelet Volume 10.1 fL (9.4-12.4); Monocytes Absolute Auto 0.6 X10*3/uL (0.1-1.2); Monocytes Percent Auto 9.9 % (2-11); Neutrophils Absolute Auto 2.9 x10*3/uL (2.0-8.3); Neutrophils Percent Auto 50.5 % (45-73); Platelet Count 176 X10*3/uL (160-400); Red Blood Count 4.94 X10*6/uL (4.60-5.80); Red Cell Distribution Width 14.9 % (11.0-16.0); White Blood Count 5.8 X10*3/uL (4.8-10.8)
[2023-01-22 14:03] LABS: Anion Gap 18 (12-20); Blood Urea Nitrogen 23 mg/dL (9-16); Calcium 9.6 mg/dL (8.4-10.2); Carbon Dioxide 25 mmol/L (22-29); Chloride 103 mmol/L (96-108); Creatinine Clr Calc Pharmacy 71.4; Estimated Glomerular Filt Rate > 60; Glucose Random 151 mg/dL (60-115); Potassium 4.9 mmol/L (3.3-5.1); Sodium 141 mmol/L (135-145)
[2023-01-22 14:09] LABS: Troponin-I High Sensitivity 6.1 ng/L (<3.5-35.0)
[2023-01-22] MEDS: Furosemide 40 MG/4 ML VIAL IVPUSH (14:09)
[2023-01-22] MEDS: Nitroglycerin 2 % Oint 1 GM Packet 1 INCH TRANSDERMA (14:25)
[2023-01-22 14:32] LABS: B Type Natriuretic Peptide 244 pg/mL (<100)
--- NOTE | 2023-01-22 15:05 | ED.SOB ---
HPI - SOB/Dyspnea General Chief Complaint: Dyspnea Stated Complaint: CHF exacerbation,SOB, LOW O2 Time Seen by Provider: 01/22/23 13:18 Source: EMS Mode of arrival: EMS Limitations: other (non verbal) History of Present Illness HPI Narrative: patient presented with acute hypoxia and respiratory failure. He has had this multiple times with CHF and COPD exacerbation. EMS gave solumedrol and placed patient on bipap MD elicited complaint: shortness of breath Pertinent past history: COPD and congestive heart failure Onset (ago): hour(s) Timing: constant Known history of: COPD and congestive heart failure Related Data Home Medications Medication Instructions Recorded Confirmed acetaminophen 325 mg capsule 650 mg PO Q4H PRN Pain 01/19/20 12/22/22 bicalutamide 50 mg tablet 50 mg PO DAILY 01/19/20 12/22/22 furosemide 20 mg tablet (Lasix) 20 mg PO DAILY 01/19/20 12/22/22 levalbuterol tartrate 45 2 puff inhalation Q4H PRN cough 01/19/20 12/22/22 mcg/actuation aerosol inhaler lorazepam 2 mg/mL injection 1 mg IM Q5M PRN Seizure Activity 01/19/20 12/22/22 solution (Ativan) omeprazole 20 mg capsule,delayed 20 mg PO DAILY@0630 01/19/20 12/22/22 release sennosides 8.6 mg tablet (senna) 8.6 mg PO DAILY PRN Constipation 01/19/20 12/22/22 guaifenesin 100 mg/5 mL oral liquid 200 mg PO Q6H PRN Cough 12/21/21 12/22/22 sodium phosphates 19 gram-7 118 ml [place] DAILY PRN Constipation 12/21/21 12/22/22 gram/118 mL enema (Fleet Enema) aluminum-mag hydroxide-simethicone 20 ml PO Q4H PRN Dyspepsia 03/07/22 12/22/22 200 mg-200 mg-20 mg/5 mL oral susp dextran 70-hypromellose (PF) 0.1 1 drp ophthalmic (eye) Q8H PRN Dry 03/07/22 12/22/22 %-0.3 % eye drops in a dropperette Eyes (Artificial Tears (PF)) aspirin 81 mg tablet,delayed 81 mg PO DAILY 08/08/22 12/22/22 release bisacodyl 10 mg rectal suppository 10 mg [place] DAILY PRN Constipation 08/08/22 12/22/22 divalproex 125 mg capsule,delayed 1,000 mg PO DAILY 08/08/22 12/22/22 release sprinkle doxycycline hyclate 50 mg capsule 50 mg PO DAILY 08/08/22 12/22/22 levalbuterol tartrate 45 2 puff inhalation BID 08/08/22 12/22/22 mcg/actuation aerosol inhaler sennosides 8.6 mg tablet (senna) 8.6 mg PO BID 08/08/22 12/22/22 amiodarone 200 mg tablet 200 mg PO DAILY 08/23/22 12/22/22 naloxone 4 mg/actuation nasal 4 mg intranasal Q3M PRN Opioid 12/22/22 12/22/22 spray (Narcan) Overdose oxycodone 5 mg tablet 2.5 mg PO TID 12/22/22 12/22/22 Previous Rx's Medication Instructions Recorded carvedilol 3.125 mg tablet 3.125 mg PO BID #0 tabs 08/13/22 lactulose 10 gram/15 mL oral 30 ml PO TID PRN constipation #237 08/13/22 solution mL Allergies Allergy/AdvReac Type Severity Reaction Status Date / Time tuberculin, purified protein Allergy Unknown UNKNOWN Verified 11/12/22 10:11 deriva [Tuberculin,Purif.Prot.Deriv.] Review of Systems Review of Systems: Yes Unobtainable due to mental status Neurologic: Denies Sensory deficit (Neuro) FOR[facility]LY [facility], [facility] Past Medical History Medical History Chronic obstructive pulmonary disease with (acute) exacerbation Hypertension CHF (congestive heart failure) Ischemic congestive cardiomyopathy Ventricular tachycardia Pneumonia due to Acinetobacter species Respiratory failure with hypoxia and hypercapnia Diabetes type 2, controlled CHF (congestive heart failure) Hypertension GERD (gastroesophageal reflux disease) Dementia Epilepsy Dysphagia Spinal stenosis Cervicalgia Muscle weakness (generalized) COPD (chronic obstructive pulmonary disease) Schizo affective schizophrenia Family History Family History Mother Cancer Social History Social History Household Members: Other Housing: [facility] Housing Other:: [place] [facility] Are you a primary child care aide to a significant other at home: No Unable to assess alcohol history related to: Unable to respond Alcohol intake: unknown Patient Tobacco Use Status: Never used Tobacco Smoked in Last 30 Days: No Second Hand Smoke Exposure: No Use of substances other than those prescribed or required for medical reasons: No Advance Directives: No Advance Directives Information Provided: Yes Advance Directives Date on File: 08/14/22 service: No Current occupational status: disabled Physical Exam Vital Signs: Vital Signs: Last Vital Signs Temp 98.9 F 01/22/23 13:44 Pulse 71 01/22/23 14:30 Resp 25 H 01/22/23 14:30 BP 120/67 01/22/23 14:30 Pulse Ox 96 01/22/23 14:30 O2 Del Method BiPAP 01/22/23 14:30 O2 Flow Rate 60 01/22/23 13:42 Oxygen Flow Rate 60 01/22/23 13:25 BMI result Body Mass Index 26.2 Const: Other: chronically ill male, acutely short of breath in extremis Nutritional Appearance: average body habitus Limitations: physical limitations and other limitations (language) HEENT: Head: Yes normal to inspection Ears: external ears normal General nose exam: Normal external nose present Mouth: Normal oral and palatal mucosa present and oropharynx normal Throat: Yes posterior oropharynx normal Eyes: General: appearance normal, both eyes and all related structures Neck: Other: supple Neck: Yes normal visual inspection Chest: Chest palpation & inspection: normal inspection of the chest Resp: Auscultation: clear to auscultation bilaterally Cardio: Jugular venous distension: no JVD Rate: regular rate Rhythm: regular rhythm Heart sounds: S1 normal heart sound present and S2 normal heart sound present GI: Inspection: Yes normal to inspection Palpation (GI): Soft to palpation, nontender and No hepatosplenomegaly present Auscultation: normal bowel sounds : General: Yes no CVA tenderness Back/Spine/Pelvis: Back: no CVA tenderness Skin: General skin exam: no rashes or lesions noted Neuro: Cranial nerves: Yes CN's II-XII intact bilaterally Motor exam (neuro): 5/5 motor strength present throughout Sensory Exam: No Sensory deficit (Neuro) Extrem: General: Yes normal to inspection Psych: Appearance: grossly normal Course Reevaluation(s) Reevaluation #1: patients vitals and respiration have improved will get patient off of bipap Time: 15:23 Reevaluation #2: I spent 50 minutes of critical care, with interventions, assessments, speaking to patient, consultants, and family. Time: 15:24 Medications Administered Discontinued Medications Generic Name Dose Route Start Last Admin Trade Name Freq PRN Reason Stop Dose Admin Furosemide 40 mg 01/22/23 13:23 01/22/23 14:09 Furosemide 40 Mg/4 Ml Vial IVPUSH 01/22/23 13:24 40 mg ONCE ONE Administration Protocol Nitroglycerin 1 inch 01/22/23 14:16 01/22/23 14:25 Nitroglycerin 2 % Oint 1 Gm Packet TRANSDERMA 01/22/23 14:17 1 inch ONCE ONE Administration Medical Decision Making Differential Diagnosis Differential Diagnoses: The differential diagnosis associated with the presentation includes (CHF, COPD exacerbation, pneumonia, covid were all considered) Admission/Observation Consideration of admission/observation: Escalation of care including admission/observation considered (upon arrival patient considered for admission) Consult Healthcare Provider Management of the patient was discussed with: Hospitalist and Heat Treater (respiratory) Lab Data MDM Lab Attestation statement: I reviewed the patient's lab results. (slight elevation of BNP) 01/22/23 13:38 01/22/23 13:38 Labs: Lab Results 01/22/23 Range/Units 13:38 WBC 5.8 (4.8-10.8) X10*3/uL RBC 4.94 D (4.60-5.80) X10*6/uL Hgb 15.6 D (14.0-18.0) g/dl Hct 46.7 D (42.0-52.0) % MCV 94.5 (80.0-98.0) fL MCH 31.6 (27.0-33.0) pg MCHC 33.4 (31.0-36.0) g/dl RDW 14.9 (11.0-16.0) % Plt Count 176 (160-400) X10*3/uL MPV 10.1 (9.4-12.4) fL Immature Gran % (Auto) 0.2 (0.0-0.4) % Neut % (Auto) 50.5 (45-73) % Lymph % (Auto) 34.5 (20-40) % [place] % (Auto) 9.9 (2-11) % Eos % (Auto) 4.6 H (0-4) % Baso % (Auto) 0.3 (0-2) % Lymph # (Auto) 2.0 (1.2-4.9) X10*3/uL [place] # (Auto) 0.6 (0.1-1.2) X10*3/uL Eos # (Auto) 0.3 (0.0-0.4) X10*3/uL Baso # (Auto) 0.0 (0.0-0.2) X10*3/uL Abs Immat Gran (auto) 0.01 (0.00-0.03) X10*3/uL Absolute Neuts (auto) 2.9 (2.0-8.3) x10*3/uL Absolute Nucleated RBC 0.000 (0.0-0.012) X10*3/uL Nucleated RBC % (auto) 0.0 (0.0-0.2) /100WBC Sodium 141 (135-145) mmol/L Potassium 4.9 D (3.3-5.1) mmol/L Chloride 103 (96-108) mmol/L Carbon Dioxide 25 (22-29) mmol/L Anion Gap 18 (12-20) BUN 23 H (9-16) mg/dL Creatinine 0.81 (0.5-1.4) mg/dL Estim Creat Clear Calc 71.4 Estimated GFR > 60 Random Glucose 151 H (60-115) mg/dL Calcium 9.6 D (8.4-10.2) mg/dL Troponin I High Sens 6.1 D (<3.5-35.0) ng/L B-Natriuretic Peptide 244 H (<100) pg/mL Independent Interpretation I performed an independent interpretation of an: EKG (sinus 90, RBBB, no st or twave changes) and Plain X-Ray (changes consistent with CHF) Independent Historian Clinical information obtained from an independent historian. History obtained from or confirmed by: EMS External Record Review External record reviewed: Outpatient record Prescription Management I considered prescription management with: Antibiotic (considered but no evidence of pneumonia) Chronic Conditions Patient?s care impacted by: Other (CHF, COPD, CAD) Discharge Plan Discharge Clinical Impression: Acute congestive heart failure, Acute exacerbation of chronic obstructive airways disease Patient Disposition: Admitted As Inpatient Prescriptions: No Action acetaminophen 325 mg Capsule 650 mg PO Q4H PRN (Reason: Pain) bicalutamide 50 mg Tablet 50 mg PO DAILY lorazepam [Ativan] 2 mg/mL Solution 1 mg IM Q5M PRN (Reason: Seizure Activity) Rx Instructions: may repeat Q 5 minutes x 3 omeprazole 20 mg Capsule,Delayed Release(Dr/Ec) 20 mg PO DAILY@0630 furosemide [Lasix] 20 mg Tablet 20 mg PO DAILY Hold Instructions: Resume on 08/31/22. levalbuterol tartrate 45 mcg/actuation Hfa Aerosol Inhaler 2 puff INHALATION Q4H PRN (Reason: cough) sennosides [senna] 8.6 mg Tablet 8.6 mg PO DAILY PRN (Reason: Constipation) guaifenesin 100 mg/5 mL Liquid 200 mg PO Q6H PRN (Reason: Cough) Fleet Enema 19-7 gram/118 mL Enema 118 ml [place] DAILY PRN (Reason: Constipation) alum-mag hydroxide-simeth 200-200-20 mg/5 mL Suspension 20 ml PO Q4H PRN (Reason: Dyspepsia) Artificial Tears (PF) 0.1-0.3 % Dropperette 1 drp OPHTHALMIC (EYE) Q8H PRN (Reason: Dry Eyes) amiodarone 200 mg tablet 200 mg PO DAILY sennosides [senna] 8.6 mg Tablet 8.6 mg PO BID doxycycline hyclate 50 mg capsule 50 mg PO DAILY Rx Instructions: cellulitis prophylaxis aspirin 81 mg Tablet,Delayed Release (Dr/Ec) 81 mg PO DAILY bisacodyl 10 mg Suppository 10 mg [place] DAILY PRN (Reason: Constipation) levalbuterol tartrate 45 mcg/actuation HFA aerosol inhaler 2 puff inhalation BID divalproex 125 mg capsule, delayed rel sprinkle 1,000 mg PO DAILY carvedilol 3.125 mg Tablet 3.125 mg PO BID Qty: 0 0RF Protocol: Hold for SBP/HR < HOLD for SBP < : 90 HOLD for HR < : 60 lactulose 10 gram/15 mL solution 30 ml PO TID PRN (Reason: constipation) Qty: 237 0RF naloxone [Narcan] 4 mg/actuation [place],Non-Aerosol 4 mg INTRANASAL Q3M PRN (Reason: Opioid Overdose) Rx Instructions: spray 1 dose into ONE nostril; alternate nostrils w each dose until help arrives oxycodone 5 mg tablet 2.5 mg PO TID
--- NOTE | 2023-01-22 15:48 | P.HPHOSP_ITS ---
History of Present Illness Date of Service: 01/22/23 Chief Complaint: Resp failure 77-year-old man, resident of [facility] with history CHF and COPD presenting to the ER with acute hypoxia and respiratory failure requiring BiPAP. Patient unable to give any information. He was treated with IV Solu-Medrol and oxygen therapy. Given IV Lasix for acute heart failure. BNP noted to be elevated to 144, troponin 6.1, unremarkable chest x-ray. Patient discharged from [facility] in November of 2022 and treated for CHF and COPD. In the ER, he was given a dose of IV Lasix and nitroglycerin. He will be admitted for further management and treatment of acute hypoxic respiratory failure secondary to acute COPD exacerbation and CHF exacerbation. Review of Systems 2 Review of Systems: Yes Unobtainable due to mental status [facility] Medical History (Updated 01/22/23 @ 15:49 by Gifty Lopez NP) Hypertension CHF (congestive heart failure) Ischemic congestive cardiomyopathy Ventricular tachycardia Pneumonia due to Acinetobacter species Respiratory failure with hypoxia and hypercapnia Diabetes type 2, controlled Hypertension GERD (gastroesophageal reflux disease) Dementia Epilepsy Dysphagia Spinal stenosis Cervicalgia Muscle weakness (generalized) COPD (chronic obstructive pulmonary disease) Schizo affective schizophrenia Family History Mother Cancer Surgical History (Updated 01/22/23 @ 15:51 by Gifty Lopez NP) S/P TURP Social History Household Members: Other Housing: Skilled Nursing Housing Other:: [facility] Are you a primary healthcare interpreter to a significant other at home: No Unable to assess alcohol history related to: Unable to respond Alcohol intake: unknown Patient Tobacco Use Status: Never used Tobacco Smoked in Last 30 Days: No Second Hand Smoke Exposure: No Use of substances other than those prescribed or required for medical reasons: No Advance Directives: No Advance Directives Information Provided: Yes Advance Directives Date on File: 08/14/22 Recently lost weight without trying: Unsure Nutrition Risks: Dental problems and On aspiration precautions service: No Current occupational status: disabled Meds Allergies Allergy/AdvReac Type Severity Reaction Status Date / Time tuberculin, purified protein Allergy Unknown UNKNOWN Verified 11/12/22 10:11 deriva [Tuberculin,Purif.Prot.Deriv.] Active Medications: Current Medications Acetaminophen (Acetaminophen 325 Mg Tablet) 650 mg PO Q6H PRN PRN Reason: Pain, Mild (Pain Scale 1-3) Albuterol Sulfate (Albuterol Sulfate (0.083%) 2.5 Mg/3 Ml Vial.Michelle) 2.5 mg INHALE Q4H PRN PRN Reason: wheezing Amiodarone HCl (Amiodarone Hcl 200 Mg Tablet) 200 mg PO DAILY [facility] Aspirin (Aspirin Enteric Coated 81 Mg Tablet.) 81 mg PO DAILY [facility] Bicalutamide (Bicalutamide 50 Mg Tablet) 50 mg PO DAILY [facility] Bisacodyl (Bisacodyl 10 Mg Supp.Rect) 10 mg DC DAILY PRN PRN Reason: Constipation Divalproex Sodium (Divalproex Sodium Sprinkles 125 Mg Cap.) 1,000 mg PO DAILY [facility] Furosemide (Furosemide 40 Mg/4 Ml Vial) 40 mg IVPUSH BID@0900,1800 [facility]; Protocol Guaifenesin (Guaifenesin 100 Mg/5 Ml Liquid) ml PO Q6H PRN PRN Reason: Cough Heparin Sodium (Porcine) (Heparin Sodium,Porcine 5,000 Unit/Ml Vial) 5,000 unit SUBCUT Q12H [facility] Lactulose (Lactulose 20 Gm/30 Ml Solution) 20 gm PO TID [facility] Lorazepam (Lorazepam 2 Mg/Ml Vial) 1 mg IM Q5M PRN PRN Reason: Seizure Activity Omeprazole (Omeprazole 20 Mg Capsule.) 20 mg PO DAILY@0630 [facility] Ondansetron HCl (Ondansetron Hcl 4 Mg/2 Ml Vial) 4 mg IVPUSH Q8H PRN PRN Reason: Nausea and Vomiting Oxycodone HCl (Oxycodone Hcl Immed Release 5 Mg Tablet) 2.5 mg PO TID [facility] Senna (Sennosides 8.6 Mg Tablet) 8.6 mg PO BID [facility] Senna (Sennosides 8.6 Mg Tablet) 8.6 mg PO DAILY PRN PRN Reason: Constipation Sodium Biphosphate/Sodium Phosphate (Sodium Phosphate,[place]-Dibasic 133 Ml Enema) 118 ml DC DAILY PRN PRN Reason: Constipation Sodium Chloride (0.9 % Sodium Chloride Flush 3 Ml Syringe) 3 ml IVFLUSH QSHIFT [facility] Home Medications Medication Instructions Recorded Confirmed Last Taken Type acetaminophen 325 mg capsule 650 mg PO Q4H PRN Pain 01/19/20 01/22/23 Unknown History bicalutamide 50 mg tablet 50 mg PO DAILY 01/19/20 01/22/23 08/22/22 History furosemide 20 mg tablet (Lasix) 20 mg PO DAILY 01/19/20 01/22/23 08/22/22 History levalbuterol tartrate 45 2 puff inhalation Q4H PRN cough 01/19/20 01/22/23 Unknown History mcg/actuation aerosol inhaler lorazepam 2 mg/mL injection 1 mg IM Q5M PRN Seizure Activity 01/19/20 01/22/23 Unknown History solution (Ativan) omeprazole 20 mg capsule,delayed 20 mg PO DAILY@0630 01/19/20 01/22/23 08/22/22 History release sennosides 8.6 mg tablet (senna) 8.6 mg PO DAILY PRN Constipation 01/19/20 01/22/23 Unknown History guaifenesin 100 mg/5 mL oral liquid 200 mg PO Q6H PRN Cough 12/21/21 01/22/23 Unknown History sodium phosphates 19 gram-7 118 ml DC DAILY PRN Constipation 12/21/21 01/22/23 Unknown History gram/118 mL enema (Fleet Enema) aluminum-mag hydroxide-simethicone 20 ml PO Q4H PRN Dyspepsia 03/07/22 01/22/23 Unknown History 200 mg-200 mg-20 mg/5 mL oral susp dextran 70-hypromellose (PF) 0.1 1 drp ophthalmic (eye) Q8H PRN Dry 03/07/22 01/22/23 Unknown History %-0.3 % eye drops in a dropperette Eyes (Artificial Tears (PF)) aspirin 81 mg tablet,delayed 81 mg PO DAILY 08/08/22 01/22/23 08/22/22 History release bisacodyl 10 mg rectal suppository 10 mg DC DAILY PRN Constipation 08/08/22 01/22/23 Unknown History divalproex 125 mg capsule,delayed 1,000 mg PO DAILY 08/08/22 01/22/23 08/22/22 History release sprinkle doxycycline hyclate 50 mg capsule 50 mg PO DAILY 08/08/22 01/22/2308/22/23 History levalbuterol tartrate 45 2 puff inhalation BID 08/08/22 01/22/23 08/22/22 History mcg/actuation aerosol inhaler sennosides 8.6 mg tablet (senna) 8.6 mg PO BID 08/08/22 01/22/23 08/22/22 History amiodarone 200 mg tablet 200 mg PO DAILY 08/23/22 01/22/23 Unknown History oxycodone 5 mg tablet 2.5 mg PO TID 12/22/22 01/22/23 Unknown History lactulose 10 gram/15 mL oral 30 ml PO TID constipation 01/22/23 01/22/23 Unknown History solution Physical Exam 2 Vital Signs and Narrative: Vital Signs: Last Vital Signs Temp 98.9 F 01/22/23 13:44 Pulse 71 01/22/23 14:30 Resp 25 H 01/22/23 14:30 BP 120/67 01/22/23 14:30 Pulse Ox 96 01/22/23 14:30 O2 Del Method BiPAP 01/22/23 14:30 O2 Flow Rate 60 01/22/23 13:42 Oxygen Flow Rate 60 01/22/23 13:25 BMI result Body Mass Index 26.2 Results Labs 01/22/23 13:38 01/22/23 13:38 Labs: Laboratory Results - last 24 hr 01/22/23 13:38 MCV 94.5 MCH 31.6 MCHC 33.4 RDW 14.9 Plt Count 176 MPV 10.1 Immature Gran % (Auto) 0.2 Neut % (Auto) 50.5 Lymph % (Auto) 34.5 [place] % (Auto) 9.9 Eos % (Auto) 4.6 H Baso % (Auto) 0.3 Lymph # (Auto) 2.0 [place] # (Auto) 0.6 Eos # (Auto) 0.3 Baso # (Auto) 0.0 Abs Immat Gran (auto) 0.01 Absolute Neuts (auto) 2.9 Absolute Nucleated RBC 0.000 Nucleated RBC % (auto) 0.0 Anion Gap 18 Estim Creat Clear Calc 71.4 Estimated GFR > 60 Random Glucose 151 H Calcium 9.6 D B-Natriuretic Peptide 244 H Imaging Radiologist's Impressions: Impressions Chest X-Ray 01/22/23 14:04 IMPRESSION: Unremarkable chest examination. Assessment and Plan (1) Acute exacerbation of chronic obstructive airways disease: Status: Acute (2) Acute congestive heart failure: Status: Acute Plan 77 year old man with hx of TBI from [facility] admitted with acute hypoxic respiratory failure secondary to COPD and CHF Acute hypoxic respiratory failure secondary to COPD and heart failure with reduced ejection fraction Required BiPAP in ED Continue supplemental oxygen, 93% on 5 liters oxymask NPO for now, speech and swallow eval pending Heart failure with reduced ejection fraction Last echocardiogram in July of 2022 with EF of less than 10% Will treat with IV Lasix 40 mg twice daily Monitor on telemetry Daily weights and strict intake and output Cardiology consultation Echocardiogram COPD exacerbation IV Solu-Medrol Schedule DuoNebs Supplemental oxygen (oxymask) History of ventricular tachycardia Continue amiodarone Monitor on telemetry GERD Continue PPI History of seizure disorder Ativan as needed Seizure precautions VIRGIE CPap DVT prophylaxis with heparin Full code Patient requires 2 inpatient midnights for treatment of acute hypoxic respiratory failure requiring IV steroids, scheduled DuoNebs, IV diuretics for acute heart failure and specialist consultation Time Spent With Patient Time: Total time managing care of this patient today ____ minutes. Quality Stroke Does the patient have a stroke diagnosis?: No VTE Prior VTE?: No VTE Risk Level:: Medical - moderate - high VTE Device Contraindication: Treatment Not Indicated VTE Drug Contraindication: N/A - Med Ordered
[2023-01-22 16:10] LABS: Venous Blood Gas Refer to POC result
[2023-01-22 16:11] LABS: VBG HCO3 31 mmol/L (22-26); VBG pCO2 55 mmHg; VBG pH 7.35 (7.32-7.43); VBG pO2 53 mmHg
[2023-01-22 16:31] LABS: Troponin-I High Sensitivity 19.1 ng/L (<3.5-35.0)
[2023-01-22] MEDS: 0.9 % Sodium Chloride Flush 3 ML SYRINGE IVFLUSH ×2 (16:46→22:46)
[2023-01-22 16:47] LABS: Influenza A PCR NEGATIVE (Negative); Influenza B PCR NEGATIVE (Negative); Resp Syncy Virus RNA Qual PCR NEGATIVE (Negative); SARS COV2 PCR INHOUSE NEGATIVE (Negative)
--- NOTE | 2023-01-22 16:53 | PC.NURSE ---
pt BIBA from [facility] where he was started to complain of chest pain after his meal and and had respiratory distress. pt was found to be in the 80s on RA. started on CPAP where he improved to 98%. pt then downgraded to an oxymask on 5L SaO2 94%. pt cool and clammy to the touch, POC in range, rectal temp afebrile. pt resting quietly in the bed at this time, responsive to verbal stimuli. pt has a 20G in his L forearm. plan for pt to be admitted. pt changed into a hospital [facility]
[2023-01-22 16:54] LABS: Glucose, Whole Blood 161 mg/dL (60-115)
--- NOTE | 2023-01-22 17:31 | MHC.EDTECH ---
Patient repositioned and bed pad changed
--- NOTE | 2023-01-22 17:44 | PC.NURSE ---
pt continues to be pale, cool, clammy, POC and temp in range. pt retaining 718 urine. plan to boyce cath. pt HR in the 50s, BP systolic low in the 100s, high 90s. plan to remove nitro patch. tiger connect sent to Gifty COBB
[2023-01-22 18:57] LABS: Appearance Urine Clear; Color Urine Yellow; Glucose Urine UA Negative (Negative); Leukocyte Esterase Urine Negative (Negative); Nitrite Urine Negative (Negative); PH 5.5 (5.0-9.0); Urine Blood Negative (Negative); Urine Ketones Negative (Negative); Urine Protein Negative (Neg-Trace)
[2023-01-22 19:02] LABS: Amphetamine Screen Urine Not Detected (Not Detect); Barbiturates, Urine Not Detected (Not Detect); Benzodiazepines Screen Urine Not Detected (Not Detect); Cannabinoid Screen Urine Not Detected (Not Detect); Cocaine Screen Urine Not Detected (Not Detect); Fentanyl, urine Not Detected (Not Detect); Opiate Screen Urine Not Detected (Not Detect); Phencyclidine Screen Urine Not Detected (Not Detect)
[2023-01-22] MEDS: Heparin Sodium,Porcine 5,000 UNIT/ML VIAL 5000 UNIT SUBCUT (19:21)
--- NOTE | 2023-01-22 19:24 | PC.NURSE ---
held 60mg lasix at this time d/t pts condition, responsive to painful stimuli, HR 52, BP 113/59 , pt also received 40mg lasix at 1400, concern for decompensation.
--- NOTE | 2023-01-22 19:26 | PC.NURSE ---
this RN informed MD Eckert about pt's declining condition since arriving. ABGs ordered
[2023-01-22 20:15] LABS: ABG Base Excess 5.7 mmol/L; ABG HCO3 33 mmol/L (22-26); ABG pCO2 58 mmHg (32-45); ABG pH 7.36 (7.35-7.45); ABG pO2 87 mmHg (83-108)
[2023-01-22] MEDS: levalbuterol HCL 1.25 MG/3 ML VIAL.NEB INHALE (20:27)
--- NOTE | 2023-01-22 21:16 | PC.NURSE ---
report given to RN, will have pt transported upstairs
[2023-01-22] MEDS: methylPREDNISolone Sod Succ 40 MG/ML VIAL IVPUSH (22:42)
[2023-01-22 22:51] LABS: ABG Refer to POC result
[2023-01-23] VITALS (11 sets, daily range): BP systolic 115–170; BP diastolic 63–97; PULSE 59–76; RESP 18–28; TEMP 35.9–36.9; O2SAT 94–99
[2023-01-23] MEDS: Heparin Sodium,Porcine 5,000 UNIT/ML VIAL 5000 UNIT SUBCUT ×2 (05:28→17:46)
[2023-01-23] MEDS: levalbuterol HCL 1.25 MG/3 ML VIAL.NEB INHALE ×3 (06:27→23:23)
--- NOTE | 2023-01-23 07:00 | CA_ITS ---
Transthoracic Echocardiogram Patient (Last, First, Middle): Prateek Lee, Gender: Male Date of : 1945 Age: 77 Procedure Date: 01/23/2023 Procedure Type: Transthoracic Echocardiogram [place] [facility]: 170.18 cm Weight: 75.3 kg BSA: 1.87 m2 Heart Rate: bpm BP: 136 / 82 mmHg Facilities Clerk: TO Referring MD: Gifty Lopez NP Advice Clerk: Pernell Cisneros MD Symptoms: CHF Study Quality: Technically Difficult ECG Rhythm: Sinus Conclusions: - Severely reduced LV ejection fraction of 10-15% Findings Procedure Information The study quality is limited by the patients inability to tolerate the test and an uncooperative patient. Left Ventricle Mildly increased left ventricular cavity size. There is normal left ventricular wall thickness. The left ventricular systolic function is severely decreased. The visually estimated ejection fraction is between 10 15%. Spectral Doppler is indicative of an impaired relaxation filling pattern. Prior Study Comparison No significant change compared to prior study dated: 08/08/2022. Measurements 2D Linear Measurements IVSd: 0.89 0.6-0.9/0.6-1.0 cm LVIDd: 6.01 3.9-5.3/4.2-5.9 cm LVIDd Index: 3.21 2.4-3.2/2.2-3.1 cm/m2 LVIDs: 5.18 2.0-3.6 cm LVPWd: 1.00 0.7-1.1 cm LA Diam: 4.20 2.7-3.8/3.0-4.0 cm LAIDs Index: 2.25 1.5-2.3 cm/m2 LV Mass: 286.02 67-162/88-224 g LV Mass Index: 152.95 43-95/49-115 g/m2 LVOT Diam: 2.40 3.0+(-)1.3 cm Mitral Valve MV Pk E: 0.40 MV PK A: 0.96 MV Decel Time: 188.00 E/A: 0.40 E'Lateral: 4.03 E'Medial: 4.13 E/E' Med: 9.80 E/E' Lat: 10.00 PHT: 55.00 MVA PHT: 4.00 Decel Stonewall: 2.14 LVOT LVOT Pk Jarrod: 0.62 LVOT Mn Jarrod: 0.44 LVOT VTI: 0.12 LVOT Pk Grad: 2.00 LVOT Mn Grad: 1.00 LVOT Diam: 2.40 LVOT Area: 4.52 Diastolic Function MV Pk E: 0.40 MV Pk A: 0.96 E/A: 0.40 E'Medial: 4.13 E/E' Med: 9.80 E' Laterial: 4.03 E/E' Lat: 10.00 Tricuspid Valve RA Press: 3.00 Great Vessels Aorta Sinus of Valsalva: 3.68 2.0-3.5 cm Ao Asc: 3.50 2.1-3.4 cm Updated in Other Vendor System with Status of Final Pernell Cisneros MD electronically signed on 01/23/2023 3:39:27 PM with status of Final
[2023-01-23] MEDS: Lactulose 20 GM/30 ML SOLUTION PO ×3 (08:42→20:46)
[2023-01-23] MEDS: oxyCODONE HCl Immed Release 5 MG TABLET 2.5 MG PO ×3 (08:42→20:43)
[2023-01-23] MEDS: Acetaminophen 325 MG TABLET 650 MG PO ×2 (08:44→21:59)
[2023-01-23] MEDS: Divalproex Sodium Sprinkles 125 MG CAP.DR.SPR 1000 MG PO (08:45)
[2023-01-23] MEDS: Omeprazole 20 MG CAPSULE.DR PO (08:46)
[2023-01-23] MEDS: Aspirin Enteric Coated 81 MG TABLET.DR PO (08:46)
[2023-01-23] MEDS: Sennosides 8.6 MG TABLET PO ×3 (08:47→20:46)
[2023-01-23] MEDS: methylPREDNISolone Sod Succ 40 MG/ML VIAL IVPUSH ×2 (08:47→20:46)
[2023-01-23] MEDS: Furosemide 40 MG/4 ML VIAL 60 MG IVPUSH ×2 (08:51→17:45)
[2023-01-23] MEDS: 0.9 % Sodium Chloride Flush 3 ML SYRINGE IVFLUSH ×3 (08:53→23:31)
[2023-01-23] MEDS: Amiodarone HCL 200 MG TABLET PO (09:00)
[2023-01-23] MEDS: Bicalutamide 50 MG TABLET PO (09:00)
--- NOTE | 2023-01-23 09:11 | MHC.CM.PN ---
CM spoke with Patient's Guardian/Bethanie @ [phone] and addressed IMM with her (original will be mailed to Bethanie and a copy has been placed on the chart). Patient is a LTC Resident @ [facility] and returning there is the goal. JOSE has initiated and will follow for dc planning.
--- NOTE | 2023-01-23 09:16 | MHC.CM.PN ---
JOSE has asked Angely @ [facility] ti fax a copy of the Guardianship to JOSE.
--- NOTE | 2023-01-23 09:42 | HO.PM.IMPN ---
Subjective Subjective Date of Service: 01/23/23 Interval History: f/u on acute hypoxic resp failure d/t heart failre and required bipapa, he is better and off bipap Physical Exam Vital Signs: Vital Signs: Last Vital Signs Temp 96.8 F 01/23/23 07:10 Pulse 76 01/23/23 07:10 Resp 28 H 01/23/23 07:10 BP 142/76 H 01/23/23 07:10 Pulse Ox 98 01/23/23 07:10 O2 Del Method CPAP 01/23/23 07:10 O2 Flow Rate 3 01/22/23 20:00 Oxygen Flow Rate 60 01/22/23 13:25 BMI result Body Mass Index 26.0 Const: Other: General: no distres, alert Resp: rales at bases CVS: S1,S2,RRR GI: +BS, NT, no distention Skin: No rash Neuro: motor grossly intact Psych: appropriate affect Objective Data Active Medications Acetaminophen (Acetaminophen 325 Mg Tablet) 650 mg PO Q6H PRN PRN Reason: Pain, Mild (Pain Scale 1-3) Last Admin: 01/23/23 08:44 Dose: 650 mg Documented By: SLOANE Albuterol Sulfate (Albuterol Sulfate (0.083%) 2.5 Mg/3 Ml Vial.Neb) 2.5 mg INHALE Q4H PRN PRN Reason: wheezing Amiodarone HCl (Amiodarone Hcl 200 Mg Tablet) 200 mg PO DAILY [facility] Aspirin (Aspirin Enteric Coated 81 Mg Tablet.) 81 mg PO DAILY [facility] Last Admin: 01/23/23 08:46 Dose: 81 mg Documented By: SLOANE Bicalutamide (Bicalutamide 50 Mg Tablet) 50 mg PO DAILY [facility] Bisacodyl (Bisacodyl 10 Mg Supp.Rect) 10 mg RI DAILY PRN PRN Reason: Constipation Divalproex Sodium (Divalproex Sodium Sprinkles 125 Mg Cap.) 1,000 mg PO DAILY [facility] Last Admin: 01/23/23 08:45 Dose: 1,000 mg Documented By: SLOANE Furosemide (Furosemide 40 Mg/4 Ml Vial) 60 mg IVPUSH BID@0900,1800 [facility]; Protocol Last Admin: 01/23/23 08:51 Dose: 60 mg Documented By: SLOANE Guaifenesin (Guaifenesin 100 Mg/5 Ml Liquid) 10 ml PO Q6H PRN PRN Reason: Cough Heparin Sodium (Porcine) (Heparin Sodium,Porcine 5,000 Unit/Ml Vial) 5,000 unit SUBCUT Q12H [facility] Last Admin: 01/23/23 05:28 Dose: 5,000 unit Documented By: AMBER Lactulose (Lactulose 20 Gm/30 Ml Solution) 20 gm PO TID [facility] Last Admin: 01/23/23 08:42 Dose: 20 gm Documented By: SLOANE Levalbuterol HCl (Levalbuterol Hcl 1.25 Mg/3 Ml Vial.Neb) 1.25 mg INHALE RQ4H [facility] Last Admin: 01/23/23 08:00 Dose: Not Given Documented By: CHESTER Non-Admin Reason: Patient Refused Lorazepam (Lorazepam 2 Mg/Ml Vial) 1 mg IM Q5M PRN PRN Reason: Seizure Activity Methylprednisolone Sodium Succinate (Methylprednisolone Sod Succ 40 Mg/Ml Vial) 40 mg IVPUSH Q12H [facility] Last Admin: 01/23/23 08:47 Dose: 40 mg Documented By: SLOANE Morphine Sulfate (Morphine Sulfate 2 Mg/Ml Cartridge) 2 mg IVPUSH Q6H PRN; Protocol PRN Reason: Pain, Severe (Pain Scale 7-10) Omeprazole (Omeprazole 20 Mg Capsule.) 20 mg PO DAILY@0630 [facility] Last Admin: 01/23/23 08:46 Dose: 20 mg Documented By: SLOANE Ondansetron HCl (Ondansetron Hcl 4 Mg/2 Ml Vial) 4 mg IVPUSH Q8H PRN PRN Reason: Nausea and Vomiting Oxycodone HCl (Oxycodone Hcl Immed Release 5 Mg Tablet) 2.5 mg PO TID [facility] Last Admin: 01/23/23 08:42 Dose: 2.5 mg Documented By: SLOANE Senna (Sennosides 8.6 Mg Tablet) 8.6 mg PO BID [facility] Last Admin: 01/22/23 22:06 Dose: Not Given Documented By: AMBER Non-Admin Reason: Physician Approved Senna (Sennosides 8.6 Mg Tablet) 8.6 mg PO DAILY PRN PRN Reason: Constipation Last Admin: 01/23/23 08:47 Dose: 8.6 mg Documented By: SLOANE Sodium Biphosphate/Sodium Phosphate (Sodium Phosphate,[place]-Dibasic 133 Ml Enema) 118 ml RI DAILY PRN PRN Reason: Constipation Sodium Chloride (0.9 % Sodium Chloride Flush 3 Ml Syringe) 3 ml IVFLUSH QSHIFT [facility] Last Admin: 01/23/23 08:53 Dose: 3 ml Documented By: SLOANE Labs 01/22/23 13:38 01/22/23 13:38 Labs: Laboratory Results - last 24 hr 01/22/23 01/22/23 01/22/23 13:38 16:02 16:07 MCV 94.5 MCH 31.6 MCHC 33.4 RDW 14.9 Plt Count 176 MPV 10.1 Immature Gran % (Auto) 0.2 Neut % (Auto) 50.5 Lymph % (Auto) 34.5 [place] % (Auto) 9.9 Eos % (Auto) 4.6 H Baso % (Auto) 0.3 Lymph # (Auto) 2.0 [place] # (Auto) 0.6 Eos # (Auto) 0.3 Baso # (Auto) 0.0 Abs Immat Gran (auto) 0.01 Absolute Neuts (auto) 2.9 Absolute Nucleated RBC 0.000 Nucleated RBC % (auto) 0.0 O2 Saturation ABG pH at Pt Temp ABG pCO2 at Pt Temp ABG pO2 at Pt Temp ABG HCO3 ABG Base Excess (Actual) VBG pH 7.35 VBG pCO2 55 VBG pO2 53 VBG HCO3 31 H VBG O2 Saturation 78.0 VBG Base Excess 4.0 Anion Gap 18 Estim Creat Clear Calc 71.4 Estimated GFR > 60 POC Glucose Random Glucose 151 H Calcium 9.6 D B-Natriuretic Peptide 244 H Urine Color Urine Appearance Urine pH Ur Specific [place] Urine Protein Urine Glucose (UA) Urine Ketones Urine Blood Urine Nitrite Ur Leukocyte Esterase Urine Opiates Screen Urine Fentanyl Screen Ur Barbiturates Screen Ur Phencyclidine Scrn Ur Amphetamines Screen U Benzodiazepines Scrn Urine Cocaine Screen U Marijuana (THC) Screen Influenza Type A (PCR) NEGATIVE Influenza Type B (PCR) NEGATIVE RSV RNA Qual (PCR) NEGATIVE SARS-CoV-2 RNA (RT-PCR) NEGATIVE 01/22/23 01/22/23 01/22/23 16:50 18:18 20:10 MCV MCH MCHC RDW Plt Count MPV Immature Gran % (Auto) Neut % (Auto) Lymph % (Auto) [place] % (Auto) Eos % (Auto) Baso % (Auto) Lymph # (Auto) [place] # (Auto) Eos # (Auto) Baso # (Auto) Abs Immat Gran (auto) Absolute Neuts (auto) Absolute Nucleated RBC Nucleated RBC % (auto) O2 Saturation 96.0 ABG pH at Pt Temp 7.36 ABG pCO2 at Pt Temp 58 H ABG pO2 at Pt Temp 87 ABG HCO3 33 H ABG Base Excess (Actual) 5.7 VBG pH VBG pCO2 VBG pO2 VBG HCO3 VBG O2 Saturation VBG Base Excess Anion Gap Estim Creat Clear Calc Estimated GFR POC Glucose 161 H Random Glucose Calcium B-Natriuretic Peptide Urine Color Yellow Urine Appearance Clear Urine pH 5.5 Ur Specific [place] 1.010 Urine Protein Negative Urine Glucose (UA) Negative Urine Ketones Negative Urine Blood Negative Urine Nitrite Negative Ur Leukocyte Esterase Negative Urine Opiates Screen Not Detected Urine Fentanyl Screen Not Detected Ur Barbiturates Screen Not Detected Ur Phencyclidine Scrn Not Detected Ur Amphetamines Screen Not Detected U Benzodiazepines Scrn Not Detected Urine Cocaine Screen Not Detected U Marijuana (THC) Screen Not Detected Influenza Type A (PCR) Influenza Type B (PCR) RSV RNA Qual (PCR) SARS-CoV-2 RNA (RT-PCR) Assessment and Plan (1) Acute and chronic respiratory failure with hypoxia: Status: Resolved (2) CHF (congestive heart failure): Status: Resolved Plan [id number] with a PMH significant for COPD, CHF, schizophrenia, epilepsy, prostate cancer, HTN, and tardive dyskenisia, who was sent to the ED from [facility] for SOB. He will be admitted for CHF exacerbation ... treatment and further workup. 1.Acute hypoxic respiratory failure requiring BiPAP (likely secondary to acute on chronic systolic heart failure), he required bipap in the ED but now off and doing better -continue IV Lasix for one more day 2. History of ventricular tachycardia with severe cardiomyopathy -continue amiodarone 3.Seizure -continue Depakote, seizure precautions 4. COPD no acute exacerbation -continue outpatient therapies -titrate O2 as indicated 5. Elevated troponin likely due to demand ischemia due to hypoxia, EKG showed lateral ischemia continue aspirin, beta-blockers, check lipid profile, patient has been evaluated in the past by Cardiology and felt not suitable for any invasive procedure like cardiac catheterization mainly due to mental health issues. 6. Dysphagia, speech eval before diet need for inpatient:IV lasix for heart failure dvt prophylaxis: heparin Time Spent With Patient Time: Total time managing care of this patient today ____ minutes. Quality Stroke Does the patient have a stroke diagnosis?: No VTE Prior VTE?: No VTE Risk Level:: Medical - moderate - high VTE Device Contraindication: Treatment Not Indicated VTE Drug Contraindication: N/A - Med Ordered
--- NOTE | 2023-01-23 10:17 | PM.CNCAR ---
History of Present Illness History of Present Illness Date of Service: 01/23/23 Requesting physician: Link Russ Consult reason: congestive heart failure Chief complaint: CHF exacerbation,SOB, LOW O2 Narrative: I was consulted to see Audrey in cardiology consultation today for acute hypoxic respiratory failure with suggestion of decompensated congestive heart failure. Patient is a 77-year-old male with [facility] resident with severe cardiomyopathy with heart failure with reduced ejection fraction with LVEF of less than 10%, COPD, tardive dyskinesia with speech impairment as well as cognitive dysfunction. [facility] due to significant shortness of breath and hypoxemia. He was admitted with acute hypoxemic respiratory failure initially requiring BiPAP support. Patient was noted to only have mildly elevated BNP 244 with findings consistent with heart failure as well as some bronchospastic airway disease. Been treated. Continues to appear to be congested and in some formal respiratory distress. He is coughing excessively. No fever no chills. Other history is difficult to obtain from the patient. Review of Systems Review of Systems: Yes Unobtainable due to mental status PMFSH Past Medical History Medical History (Updated 01/22/23 @ 15:49 by Gifty Lopez NP) Hypertension CHF (congestive heart failure) Ischemic congestive cardiomyopathy Ventricular tachycardia Pneumonia due to Acinetobacter species Respiratory failure with hypoxia and hypercapnia Diabetes type 2, controlled Hypertension GERD (gastroesophageal reflux disease) Dementia Epilepsy Dysphagia Spinal stenosis Cervicalgia Muscle weakness (generalized) COPD (chronic obstructive pulmonary disease) Schizo affective schizophrenia Family History Family History Mother Cancer Surgical History Surgical History (Updated 01/22/23 @ 15:51 by Gifty Lopez NP) S/P TURP Social History Social History Household Members: Other Housing: [facility] Housing Other:: [facility] Are you a primary small animal caretaker to a significant other at home: No Unable to assess alcohol history related to: Unable to respond Alcohol intake: unknown Patient Tobacco Use Status: Never used Tobacco Smoked in Last 30 Days: No Second Hand Smoke Exposure: No Use of substances other than those prescribed or required for medical reasons: No Advance Directives: No Advance Directives Information Provided: Yes Advance Directives Date on File: 08/14/22 Recently lost weight without trying: Unsure Nutrition Risks: Dental problems and On aspiration precautions service: No Current occupational status: disabled Meds Allergies Allergy/AdvReac Type Severity Reaction Status Date / Time tuberculin, purified protein Allergy Unknown UNKNOWN Verified 11/12/22 10:11 deriva [Tuberculin,Purif.Prot.Deriv.] Active Medications: Current Medications Acetaminophen (Acetaminophen 325 Mg Tablet) 650 mg PO Q6H PRN PRN Reason: Pain, Mild (Pain Scale 1-3) Last Admin: 01/23/23 08:44 Dose: 650 mg Albuterol Sulfate (Albuterol Sulfate (0.083%) 2.5 Mg/3 Ml Vial.Neb) 2.5 mg INHALE Q4H PRN PRN Reason: wheezing Amiodarone HCl (Amiodarone Hcl 200 Mg Tablet) 200 mg PO DAILY [facility] Aspirin (Aspirin Enteric Coated 81 Mg Tablet.) 81 mg PO DAILY [facility] Last Admin: 01/23/23 08:46 Dose: 81 mg Bicalutamide (Bicalutamide 50 Mg Tablet) 50 mg PO DAILY [facility] Bisacodyl (Bisacodyl 10 Mg Supp.Rect) 10 mg IA DAILY PRN PRN Reason: Constipation Divalproex Sodium (Divalproex Sodium Sprinkles 125 Mg Cap.) 1,000 mg PO DAILY [facility] Last Admin: 01/23/23 08:45 Dose: 1,000 mg Furosemide (Furosemide 40 Mg/4 Ml Vial) 60 mg IVPUSH BID@0900,1800 [facility]; Protocol Last Admin: 01/23/23 08:51 Dose: 60 mg Guaifenesin (Guaifenesin 100 Mg/5 Ml Liquid) 10 ml PO Q6H PRN PRN Reason: Cough Heparin Sodium (Porcine) (Heparin Sodium,Porcine 5,000 Unit/Ml Vial) 5,000 unit SUBCUT Q12H [facility] Last Admin: 01/23/23 05:28 Dose: 5,000 unit Lactulose (Lactulose 20 Gm/30 Ml Solution) 20 gm PO TID [facility] Last Admin: 01/23/23 08:42 Dose: 20 gm Levalbuterol HCl (Levalbuterol Hcl 1.25 Mg/3 Ml Vial.Neb) 1.25 mg INHALE RQ4H [facility] Last Admin: 01/23/23 08:00 Dose: Not Given Lorazepam (Lorazepam 2 Mg/Ml Vial) 1 mg IM Q5M PRN PRN Reason: Seizure Activity Methylprednisolone Sodium Succinate (Methylprednisolone Sod Succ 40 Mg/Ml Vial) 40 mg IVPUSH Q12H [facility] Last Admin: 01/23/23 08:47 Dose: 40 mg Morphine Sulfate (Morphine Sulfate 2 Mg/Ml Cartridge) 2 mg IVPUSH Q6H PRN; Protocol PRN Reason: Pain, Severe (Pain Scale 7-10) Omeprazole (Omeprazole 20 Mg Capsule.Dr) 20 mg PO DAILY@0630 [facility] Last Admin: 01/23/23 08:46 Dose: 20 mg Ondansetron HCl (Ondansetron Hcl 4 Mg/2 Ml Vial) 4 mg IVPUSH Q8H PRN PRN Reason: Nausea and Vomiting Oxycodone HCl (Oxycodone Hcl Immed Release 5 Mg Tablet) 2.5 mg PO TID [facility] Last Admin: 01/23/23 08:42 Dose: 2.5 mg Senna (Sennosides 8.6 Mg Tablet) 8.6 mg PO BID [facility] Last Admin: 01/22/23 22:06 Dose: Not Given Senna (Sennosides 8.6 Mg Tablet) 8.6 mg PO DAILY PRN PRN Reason: Constipation Last Admin: 01/23/23 08:47 Dose: 8.6 mg Sodium Biphosphate/Sodium Phosphate (Sodium Phosphate,[place]-Dibasic 133 Ml Enema) 118 ml IA DAILY PRN PRN Reason: Constipation Sodium Chloride (0.9 % Sodium Chloride Flush 3 Ml Syringe) 3 ml IVFLUSH QSHIFT [facility] Last Admin: 01/23/23 08:53 Dose: 3 ml Home Medications Medication Instructions Recorded Confirmed Last Taken Type acetaminophen 325 mg capsule 650 mg PO Q4H PRN Pain 01/19/20 01/22/23 Unknown History bicalutamide 50 mg tablet 50 mg PO DAILY 01/19/20 01/22/23 08/22/22 History furosemide 20 mg tablet (Lasix) 20 mg PO DAILY 01/19/20 01/22/23 08/22/22 History levalbuterol tartrate 45 2 puff inhalation Q4H PRN cough 01/19/20 01/22/23 Unknown History mcg/actuation aerosol inhaler lorazepam 2 mg/mL injection 1 mg IM Q5M PRN Seizure Activity 01/19/20 01/22/23 Unknown History solution (Ativan) omeprazole 20 mg capsule,delayed 20 mg PO DAILY@0630 01/19/20 01/22/23 08/22/22 History release sennosides 8.6 mg tablet (senna) 8.6 mg PO DAILY PRN Constipation 01/19/20 01/22/23 Unknown History guaifenesin 100 mg/5 mL oral liquid 200 mg PO Q6H PRN Cough 12/21/21 01/22/23 Unknown History sodium phosphates 19 gram-7 118 ml IA DAILY PRN Constipation 12/21/21 01/22/23 Unknown History gram/118 mL enema (Fleet Enema) aluminum-mag hydroxide-simethicone 20 ml PO Q4H PRN Dyspepsia 03/07/22 01/22/23 Unknown History 200 mg-200 mg-20 mg/5 mL oral susp dextran 70-hypromellose (PF) 0.1 1 drp ophthalmic (eye) Q8H PRN Dry 03/07/22 01/22/23 Unknown History %-0.3 % eye drops in a dropperette Eyes (Artificial Tears (PF)) aspirin 81 mg tablet,delayed 81 mg PO DAILY 08/08/22 01/22/23 08/22/22 History release bisacodyl 10 mg rectal suppository 10 mg IA DAILY PRN Constipation 08/08/22 01/22/23 Unknown History divalproex 125 mg capsule,delayed 1,000 mg PO DAILY 08/08/22 01/22/23 08/22/22 History release sprinkle doxycycline hyclate 50 mg capsule 50 mg PO DAILY 08/08/22 01/22/23 08/22/22 History levalbuterol tartrate 45 2 puff inhalation BID 08/08/22 01/22/23 08/22/22 History mcg/actuation aerosol inhaler sennosides 8.6 mg tablet (senna) 8.6 mg PO BID 08/08/22 01/22/23 08/22/22 History amiodarone 200 mg tablet 200 mg PO DAILY 08/23/22 01/22/23 Unknown History oxycodone 5 mg tablet 2.5 mg PO TID 12/22/22 01/22/23 Unknown History lactulose 10 gram/15 mL oral 30 ml PO TID constipation 01/22/23 01/22/23 Unknown History solution Physical Exam Vital Signs: Vital Signs: Last Vital Signs Temp 96.8 F 01/23/23 07:10 Pulse 76 01/23/23 07:10 Resp 28 H 01/23/23 07:10 BP 142/76 H 01/23/23 07:10 Pulse Ox 98 01/23/23 07:10 O2 Del Method CPAP 01/23/23 07:10 O2 Flow Rate 3 01/22/23 20:00 Oxygen Flow Rate 60 01/22/23 13:25 BMI result Body Mass Index 26.0 Const: General: cooperative, alert, awake, in distress moderate and respiratory and ill appearing Nutritional Appearance: overweight HEENT: Head: Yes normocephalic and Yes atraumatic Neck: Neck: Yes trachea midline, Yes supple and Yes JVD Resp: Effort & Inspection: normal respiratory effort Auscultation: crackles diffuse and wheezes Cardio: Jugular venous distension: JVD Palpation: abnormal PMI displaced PMI Rate: regular rate Rhythm: regular rhythm Heart sounds: S1 normal heart sound present, S2 normal heart sound present, no click, Gallop heart sound present and no murmurs GI: Auscultation: normal bowel sounds Skin: General skin exam: no rashes or lesions noted Extrem: General: Yes no clubbing, cyanosis or edema Objective Labs and Meds 01/22/23 13:38 01/22/23 13:38 Lab results: Laboratory Results - last 24 hr 01/22/23 01/22/23 01/22/23 13:38 16:02 16:07 WBC 5.8 RBC 4.94 D Hgb 15.6 D Hct 46.7 D MCV 94.5 MCH 31.6 MCHC 33.4 RDW 14.9 Plt Count 176 MPV 10.1 Immature Gran % (Auto) 0.2 Neut % (Auto) 50.5 Lymph % (Auto) 34.5 [place] % (Auto) 9.9 Eos % (Auto) 4.6 H Baso % (Auto) 0.3 Lymph # (Auto) 2.0 [place] # (Auto) 0.6 Eos # (Auto) 0.3 Baso # (Auto) 0.0 Abs Immat Gran (auto) 0.01 Absolute Neuts (auto) 2.9 Absolute Nucleated RBC 0.000 Nucleated RBC % (auto) 0.0 O2 Saturation ABG pH at Pt Temp ABG pCO2 at Pt Temp ABG pO2 at Pt Temp ABG HCO3 ABG Base Excess (Actual) VBG pH 7.35 VBG pCO2 55 VBG pO2 53 VBG HCO3 31 H VBG O2 Saturation 78.0 VBG Base Excess 4.0 Sodium 141 Potassium 4.9 D Chloride 103 Carbon Dioxide 25 Anion Gap 18 BUN 23 H Creatinine 0.81 Estim Creat Clear Calc 71.4 Estimated GFR > 60 POC Glucose Random Glucose 151 H Calcium 9.6 D Troponin I High Sens 6.1 D 19.1 D B-Natriuretic Peptide 244 H Urine Color Urine Appearance Urine pH Ur Specific [place] Urine Protein Urine Glucose (UA) Urine Ketones Urine Blood Urine Nitrite Ur Leukocyte Esterase Urine Opiates Screen Urine Fentanyl Screen Ur Barbiturates Screen Ur Phencyclidine Scrn Ur Amphetamines Screen U Benzodiazepines Scrn Urine Cocaine Screen U Marijuana (THC) Screen Influenza Type A (PCR) NEGATIVE Influenza Type B (PCR) NEGATIVE RSV RNA Qual (PCR) NEGATIVE SARS-CoV-2 RNA (RT-PCR) NEGATIVE 01/22/23 01/22/23 01/22/23 16:50 18:18 20:10 WBC RBC Hgb Hct MCV MCH MCHC RDW Plt Count MPV Immature Gran % (Auto) Neut % (Auto) Lymph % (Auto) [place] % (Auto) Eos % (Auto) Baso % (Auto) Lymph # (Auto) [place] # (Auto) Eos # (Auto) Baso # (Auto) Abs Immat Gran (auto) Absolute Neuts (auto) Absolute Nucleated RBC Nucleated RBC % (auto) O2 Saturation 96.0 ABG pH at Pt Temp 7.36 ABG pCO2 at Pt Temp 58 H ABG pO2 at Pt Temp 87 ABG HCO3 33 H ABG Base Excess (Actual) 5.7 VBG pH VBG pCO2 VBG pO2 VBG HCO3 VBG O2 Saturation VBG Base Excess Sodium Potassium Chloride Carbon Dioxide Anion Gap BUN Creatinine Estim Creat Clear Calc Estimated GFR POC Glucose 161 H Random Glucose Calcium Troponin I High Sens B-Natriuretic Peptide Urine Color Yellow Urine Appearance Clear Urine pH 5.5 Ur Specific [place] 1.010 Urine Protein Negative Urine Glucose (UA) Negative Urine Ketones Negative Urine Blood Negative Urine Nitrite Negative Ur Leukocyte Esterase Negative Urine Opiates Screen Not Detected Urine Fentanyl Screen Not Detected Ur Barbiturates Screen Not Detected Ur Phencyclidine Scrn Not Detected Ur Amphetamines Screen Not Detected U Benzodiazepines Scrn Not Detected Urine Cocaine Screen Not Detected U Marijuana (THC) Screen Not Detected Influenza Type A (PCR) Influenza Type B (PCR) RSV RNA Qual (PCR) SARS-CoV-2 RNA (RT-PCR) Imaging Radiologist's impression: Impressions Chest X-Ray 01/22/23 14:04 IMPRESSION: Unremarkable chest examination. Assessment and Plan (1) Acute congestive heart failure: Status: Acute Patient admitted with acute hypoxic respiratory failure with combination of COPD exacerbation with acute heart failure and patient with significant LV systolic dysfunction this is not unusual. Continue IV diuresis. Strict intake and output chart needs to be pursued. Continue supportive care. Overall prognosis guarded. Could add Entresto to his regimen given that his blood pressure is stable. Continue treatment of bronchospastic airway disease. Overall prognosis is guarded and likelihood of recurrent admissions as high. He also has significant ventricular arrhythmias which is suppressed and has frequent PVCs but no runs of nonsustained ventricular tachycardia. Continue amiodarone therapy for the same. Continue to monitor electrolytes and replace as need be. Will sign of the case. Thank you for allowing me to partake in his care Time Spent With Patient Time: Total time managing care of this patient today ____ minutes. Procedures Date of Service Date of Service: 01/23/23
[2023-01-23 10:19] LABS: Hematocrit 50.5 % (42.0-52.0); Hemoglobin 16.5 g/dl (14.0-18.0); Mean Corpuscular HGB Conc 32.7 g/dl (31.0-36.0); Mean Corpuscular Hemoglobin 30.8 pg (27.0-33.0); Mean Corpuscular Volume 94.2 fL (80.0-98.0); Mean Platelet Volume 10.4 fL (9.4-12.4); Platelet Count 178 X10*3/uL (160-400); Red Blood Count 5.36 X10*6/uL (4.60-5.80); Red Cell Distribution Width 14.8 % (11.0-16.0); White Blood Count 6.5 X10*3/uL (4.8-10.8)
--- NOTE | 2023-01-23 10:22 | PHA.MEDREC ---
Pharmacy Consult ? Medication Reconciliation Pharmacy has completed the medication reconciliation.MED REC WAS COMPLETE 01/22 BY JOHN
[2023-01-23 10:33] LABS: Alanine Aminotransferase 11 U/L (0-40); Albumin Level 4.4 g/dL (3.5-5.0); Alkaline Phosphatase 70 U/L (39-117); Anion Gap 17 (12-20); Aspartate Amino Transferase 13 U/L (5-37); Bilirubin Total 0.5 mg/dL (0.0-1.0); Blood Urea Nitrogen 26 mg/dL (9-16); Calcium 10.1 mg/dL (8.4-10.2); Carbon Dioxide 28 mmol/L (22-29); Chloride 101 mmol/L (96-108); Creatinine Clr Calc Pharmacy 74.1; Estimated Glomerular Filt Rate > 60; Glucose Random 144 mg/dL (60-115); Magnesium 2.3 mg/dL (1.6-2.6); Sodium 142 mmol/L (135-145)
--- NOTE | 2023-01-23 14:34 | MHC.SL.SWA ---
Speech Pathologist Impression: Oropharyngeal Dysphagia, Risk of Aspiration Risk of Aspiration Due to: Reduced Cognition Weak Cough Dysphasia Diet Status: UPGRADE to baseline diet Liquid Consistency and Strategies for Safe Swallow: Liquid Intake Recommendation: [place] Thick Liquid Intake Strategies: Small Sips Solid Food Consistency: Dietary Recommendations: Grnd/Mech Altered (NDD2) Oral Medication Intake: Crushed with Puree Please contact the pharmacy regarding appropriate crushable or liquid drug formulations that are available whenever modified delivery is recommended. Compensatory Strategies and Precautions to be Taken for Safe Swallow: Sitting Upright (90 deg) Small bites & sips Alternate liquids & solids Slow rate Supervision While Eating and Drinking for Safe Swallow: Total Supervision (1:1) Foods to Avoid: Mixed textures, tough consistencies, very sticky or congealed purees. Avoid soups with mixed textures. Swallowing Recommended Treatments: Recommendation for Speech: Outpatient Speech Therapy Inpatient Speech Therapy Modified Barium Swallow Study - Outpatient Comment: Per MANAGER OF APPLICATIONS DEVELOPMENT at [facility], patient's baseline is minced & moist and mildly thick liquids following most recent Modified Barium Swallow (MBS) done in March 2022 which observed trace penetration and aspiration. Taking into consideration pt's baseline diet, conversation w/ [facility] MANAGER OF APPLICATIONS DEVELOPMENT, current/recent hospitalizations for respiratory failure, current respiratory status, and today's MANAGER OF APPLICATIONS DEVELOPMENT evaluation; recommend pt's baseline diet equivalent to ground/mech altered solids and nectar thick liquids. Recommend pills crushed in puree when possible. Patient requires 1-1 supervision during all PO. Recommend MANAGER OF APPLICATIONS DEVELOPMENT re-assess toleration of diet and possible upgrade to thin liquids during next visit. Recommend MBS to be done as outpatient. MD, RN, RD notified via [place]. Pt's whiteboard updated. MANAGER OF APPLICATIONS DEVELOPMENT to continue to follow during hospitalization. Electrical Assembly Technician Clinican/Clinical Fellow: No Supervisory Statement: I have reviewed and agree with the student/clinical fellow's documentation: N/A Speech Language Pathologist: Anne Marie Bedoya M.A., [facility]-MANAGER OF APPLICATIONS DEVELOPMENT
[2023-01-24 00:30] VITALS: PULSE 84; RESP 31; O2SAT 98
[2023-01-24 02:58] VITALS: BP 136/63; PULSE 64; RESP 18; TEMP 36.2; O2SAT 97
[2023-01-24] MEDS: Heparin Sodium,Porcine 5,000 UNIT/ML VIAL 5000 UNIT SUBCUT (05:39)
[2023-01-24 07:39] VITALS: BP 133/69; PULSE 59; RESP 20; TEMP 36.4; O2SAT 97
[2023-01-24] MEDS: levalbuterol HCL 1.25 MG/3 ML VIAL.NEB INHALE ×2 (07:51→11:43)
[2023-01-24 07:53] VITALS: PULSE 57; RESP 20; O2SAT 97
--- NOTE | 2023-01-24 09:40 | P.DS_ITS ---
DS: Providers Provider Date of Service: 01/24/23 Date of admission: 01/22/23 15:40 Primary care physician: Richard Castillo DO Consults: 01/22/23 15:40 Consult to Cardiology Routine Consulting Provider: [facility] Reason for consultation: CHF DS: Diagnosis Discharge Diagnosis (1) Acute congestive heart failure: Status: Acute DS: Summary Hospital Course Hospital Course: Chief Complaint: Resp failure 77-year-old man, resident of [facility] with history CHF and COPD presenting to the ER with acute hypoxia and respiratory failure requiring BiPAP. Patient unable to give any information. He was treated with IV Solu-Medrol and oxygen therapy. Given IV Lasix for acute heart failure. BNP noted to be elevated to 144, troponin 6.1, unremarkable chest x-ray. Patient discharged from [facility] in November of 2022 and treated for CHF and COPD. In the ER, he was given a dose of IV Lasix and nitroglycerin. He will be admitted for further management and treatment of acute hypoxic respiratory failure secondary to acute COPD exacerbation and CHF exacerbation. Hospital course: A patient suffering from severe cardiomyopathy, with an ejection fraction (EF) of less than 10%, initially presented with acute respiratory distress. Evaluation revealed an exacerbation of both heart failure and chronic obstructive pulmonary disease (COPD). While in the Emergency Department, the patient was placed on rescue BiPAP support and demonstrated rapid improvement, allowing them to be weaned off. The heart failure exacerbation was managed with intravenous Lasix, with the guidance of a electrician assistant who recommended the addition of Entresto. The COPD exacerbation was treated with bronchodilators and intravenous steroids. The patient's current condition is stable, and they will transition to an increased oral Lasix dose of 40 mg twice daily, up from the previous 20 mg daily. Furthermore, a transition to oral prednisone for COPD management will be initiated, with continued use of bronchodilators. However, the overall prognosis is guarded due to the presence of severe cardiomyopathy and the associated risk of ventricular arrhythmias. Final diagnoses Acute systolic heart failure Acute hypoxic respiratory failure COPD exacerbation Time Spent with Patient Time attestation: Total time managing care of this patient today ____ minutes. Discharge coordination time: Greater than 30 minutes Quality: Safe Use of Opioids Does Pt have an Active Cancer Diagnosis on the Problem List?: No Quality: Stroke Does the patient have a stroke diagnosis?: No Physical Exam Vital Signs: Vital Signs: Last Vital Signs Temp 97.5 F 01/24/23 07:39 Pulse 57 01/24/23 07:53 Resp 20 01/24/23 07:53 BP 133/69 01/24/23 07:39 Pulse Ox 97 01/24/23 07:39 O2 Del Method Nasal Cannula 01/24/23 07:39 O2 Flow Rate 3.5 01/24/23 07:39 Oxygen Flow Rate 60 01/22/23 13:25 BMI result Body Mass Index 26.0 DS: Data Data Completed and Pending Labs on day of discharge: Laboratory Results - last 24 hr 01/23/23 09:23 WBC 6.5 RBC 5.36 Hgb 16.5 Hct 50.5 MCV 94.2 MCH 30.8 MCHC 32.7 RDW 14.8 Plt Count 178 MPV 10.4 Absolute Nucleated RBC 0.000 Nucleated RBC % (auto) 0.0 Sodium 142 Potassium 4.0 Chloride 101 Carbon Dioxide 28 Anion Gap 17 BUN 26 H Creatinine 0.78 Estim Creat Clear Calc 74.1 Estimated GFR > 60 Random Glucose 144 H Calcium 10.1 Magnesium 2.3 Total Bilirubin 0.5 AST 13 ALT 11 Alkaline Phosphatase 70 Total Protein 8.0 Albumin 4.4 Discharge Plan Discharge Anticipated Discharge Date/Time: 01/24/23 09:35 Patient Disposition: er [facility] Discharge Diagnosis: COPD and Heart failure exacerbation Referrals: [facility] [Outside] - 1 Week Richard Castillo DO [Primary Care Provider] - 1 Week Discharge Medications: New Entresto 24-26 mg Tablet 1 tab PO BID Qty: 60 0RF Protocol: Hold for SBP< HOLD for SBP < : 90 Continued acetaminophen 325 mg Capsule 650 mg PO Q4H PRN (Reason: Pain) bicalutamide 50 mg Tablet 50 mg PO DAILY lorazepam [Ativan] 2 mg/mL Solution 1 mg IM Q5M PRN (Reason: Seizure Activity) Rx Instructions: may repeat Q 5 minutes x 3 omeprazole 20 mg Capsule,Delayed Release(Dr/Ec) 20 mg PO DAILY@0630 furosemide [Lasix] 20 mg Tablet 20 mg PO DAILY Hold Instructions: Resume on 08/31/22. levalbuterol tartrate 45 mcg/actuation Hfa Aerosol Inhaler 2 puff INHALATION Q4H PRN (Reason: cough) sennosides [senna] 8.6 mg Tablet 8.6 mg PO DAILY PRN (Reason: Constipation) guaifenesin 100 mg/5 mL Liquid 200 mg PO Q6H PRN (Reason: Cough) Fleet Enema 19-7 gram/118 mL Enema 118 ml [place] DAILY PRN (Reason: Constipation) alum-mag hydroxide-simeth 200-200-20 mg/5 mL Suspension 20 ml PO Q4H PRN (Reason: Dyspepsia) Artificial Tears (PF) 0.1-0.3 % Dropperette 1 drp OPHTHALMIC (EYE) Q8H PRN (Reason: Dry Eyes) amiodarone 200 mg tablet 200 mg PO DAILY sennosides [senna] 8.6 mg Tablet 8.6 mg PO BID doxycycline hyclate 50 mg capsule 50 mg PO DAILY Rx Instructions: cellulitis prophylaxis aspirin 81 mg Tablet,Delayed Release (Dr/Ec) 81 mg PO DAILY bisacodyl 10 mg Suppository 10 mg [place] DAILY PRN (Reason: Constipation) levalbuterol tartrate 45 mcg/actuation HFA aerosol inhaler 2 puff inhalation BID divalproex 125 mg capsule, delayed rel sprinkle 1,000 mg PO DAILY carvedilol 3.125 mg Tablet 3.125 mg PO BID Qty: 0 0RF Protocol: Hold for SBP/HR < HOLD for SBP < : 90 HOLD for HR < : 60 oxycodone 5 mg tablet 2.5 mg PO TID lactulose 10 gram/15 mL solution 30 ml PO TID Discharge Orders: Discharge Order (Routine); Ordered 01/24/23 Ordered By: Link Russ Diet: Advance to usual diet Activity on Discharge: As tolerated Stand Alone Forms: Patient Portal Discharge page Care Plan Goals: Reocvoery from copd and heart failure Health Concerns: severe cardiomyopathy and heart failure, ventricular arrythmias Plan of Treatment: To continue prior medication, take Lasix for heart failure, dose increased from 20 mg daily to 40 mg twice daily follow up with PCP, overall poor prognosis and guardian to review goals of care with consideration for possible DNR/DNI Assessment: as above Discharge Date/Time: 01/24/23 15:25
[2023-01-24] MEDS: Furosemide 40 MG/4 ML VIAL 60 MG IVPUSH (09:49)
[2023-01-24] MEDS: Lactulose 20 GM/30 ML SOLUTION PO (09:49)
[2023-01-24] MEDS: Divalproex Sodium Sprinkles 125 MG CAP.DR.SPR 1000 MG PO (09:49)
[2023-01-24] MEDS: oxyCODONE HCl Immed Release 5 MG TABLET 2.5 MG PO (09:51)
[2023-01-24] MEDS: Aspirin Enteric Coated 81 MG TABLET.DR PO (09:51)
[2023-01-24] MEDS: methylPREDNISolone Sod Succ 40 MG/ML VIAL IVPUSH (09:51)
[2023-01-24] MEDS: carvediloL 3.125 MG TABLET PO (09:52)
[2023-01-24] MEDS: Amiodarone HCL 200 MG TABLET PO (09:52)
[2023-01-24] MEDS: Bicalutamide 50 MG TABLET PO (09:53)
[2023-01-24] MEDS: 0.9 % Sodium Chloride Flush 3 ML SYRINGE IVFLUSH (09:53)
[2023-01-24] MEDS: Sennosides 8.6 MG TABLET PO (09:53)
--- NOTE | 2023-01-24 10:29 | MHC.SL.SWA ---
Speech Pathologist Impression: Risk of Aspiration Due to: Reduced Cognition Weak Cough Dysphasia Diet Status: Recommend continue on current diet of Ground Mechanical Altered (NDD2) with Gans Thick Liquids, pills crushed in Puree. Patient is tolerating this diet well. Liquid Consistency and Strategies for Safe Swallow: Liquid Intake Recommendation: Gans Thick Liquid Intake Strategies: Small Sips Solid Food Consistency: Dietary Recommendations: Grnd/Mech Altered (NDD2) Additional Modifications to Solid Foods: Recommend direct supervision and strict aspiration precautions at meals due to patient's advanced dementia, history of aspiration, impulsive eating behaviors. Oral Medication Intake: Crushed with Puree Please contact the pharmacy regarding appropriate crushable or liquid drug formulations that are available whenever modified delivery is recommended. Compensatory Strategies and Precautions to be Taken for Safe Swallow: Sitting Upright (90 deg) Liquids from Cup Small Bites and Sips Alternate Liquids/Solids Rate of Ingestion Change Supervision While Eating and Drinking for Safe Swallow: Total Supervision (1:1) Foods to Avoid: Mixed consistencies, difficult to chew solids. Swallowing Recommended Treatments: Compens. Strategy Educat. Recommendation for Speech: Outpatient Speech Therapy Inpatient Speech Therapy Modified Barium Swallow Study - Outpatient Comment: Patient seen for follow up/toleration of diet recommendation after initial evaluation yesterday, 01/23. Patient was awake and alert, reclined in bed, holding a pen and requesting paper. Patient's breakfast was at bedside, with all food items consumed. Patient was provided with paper, with patient then scribbling repeatedly on the paper, then eventually signing name on the paper. Patient markedly confused, but pleasant, evidencing repetitive TD oral movements and moderate to severe dysarthric speech (communicated with in Macedonian). Patient was offered sip of water from cup, with patient rapidly propelling liquids orally and producing timely swallow. ON second sip, some throat clearing noted. Patient's current diet is baseline as recommended following MBSS study last year, where penetration/aspiration noted on thin liquids. Recommend continue on current diet of Ground Mechanical Altered (NDD2) with Gans Thick Liquids, pills crushed in Puree. Patient is tolerating this diet well. Recommend direct supervision and strict aspiration precautions at meals due to patient's advanced dementia, history of aspiration, impulsive eating behaviors. Frequency/Duration: Date Range for Service Req: Timeline to reassess: Brush Holder Assembler Clinican/Clinical Fellow: No Supervisory Statement: I have reviewed and agree with the student/clinical fellow's documentation: N/A Speech Language Pathologist: Celina Lozano M.A., CCC-FISHER QUAHOG
[2023-01-24 10:44] LABS: Anion Gap 16 (12-20); Blood Urea Nitrogen 37 mg/dL (9-16); Calcium 9.2 mg/dL (8.4-10.2); Carbon Dioxide 33 mmol/L (22-29); Chloride 99 mmol/L (96-108); Creatinine Clr Calc Pharmacy 63.5; Estimated Glomerular Filt Rate > 60; Glucose Random 175 mg/dL (60-115); Potassium 4.2 mmol/L (3.3-5.1); Sodium 144 mmol/L (135-145)
[2023-01-24 11:13] VITALS: BP 133/71; PULSE 58; RESP 24; TEMP 36.4; O2SAT 94
[2023-01-24 11:44] VITALS: PULSE 57; RESP 20; O2SAT 97
[2023-01-24] MEDS: Sacubitril/Valsartan 24/26 1 TAB TABLET PO (12:00)
--- NOTE | 2023-01-24 13:06 | MHC.CM.PN ---
Patient has been medically cleared for dc to return to LTC @ [facility] today at 2PM, via [facility]. A detailed VM was left for Guardian/Bethanie @ [phone] informing her oif the dc plan and last IMM was addressed yesterday.
--- NOTE | 2023-01-24 13:55 | MHC.CM.PN ---
A copy of Patient's Guardianship has been received from [facility], uploaded into [facility] and a copy placed on the chart.
== END 2023-01-24 15:25 | disposition skilled nursing facility (03) | DRG 291 ==
LOC: HO.ED 15:30 → HO.EDOVER 15:48 → HO.IMC 20:37
PROVIDERS: Student in an Organized Health Care Education/Training Program; Admitting Provider Nurse Practitioner Acute Care; Emergency Provider Emergency Medicine; PCP Hospitalist; Visit Provider Internal Medicine
DX: I11.0 Hypertensive heart disease with heart failure (principal); I50.23 Acute on chronic systolic (congestive) heart failure; J96.01 Acute respiratory failure with hypoxia; I24.89 Other forms of acute ischemic heart disease; J44.1 Chronic obstructive pulmonary disease with (acute) exacerbation; G40.909 Epilepsy, unspecified, not intractable, without status epilepticus; I49.3 Ventricular premature depolarization; R13.10 Dysphagia, unspecified; I42.9 Cardiomyopathy, unspecified; F03.90 Unspecified dementia, unspecified severity, without behavioral disturbance, psychotic disturbance, mood disturbance, and anxiety; E11.9 Type 2 diabetes mellitus without complications; Z87.820 Personal history of traumatic brain injury; Z20.822 Contact with and (suspected) exposure to COVID-19; Z79.82 Long term (current) use of aspirin; Z79.899 Other long term (current) drug therapy
CPT/HCPCS: 0241U; 36415; 36600; 71045; 80048; 80053; 80307; 81003; 82803; 82947; 83735; 83880; 84484; 85025; 85027; 92526; 92610; 93005; 93306; 94640; 94660; 99285; C1758; J1643; J1940; J2920; Q9957

== ENCOUNTER 2023-01-22 15:40 | Outpatient (BNV) | payer MEDICARE, MEDICAID, SELFPAY | END 2023-01-23 07:00 | PROVIDERS: Admitting Provider Nurse Practitioner Acute Care; Emergency Provider Emergency Medicine; PCP Hospitalist; Visit Provider Internal Medicine Cardiovascular Disease | DX: I50.21 Acute systolic (congestive) heart failure (principal) | CPT/HCPCS: 93306 ==

== ENCOUNTER → 2023-01-22 15:40 | Outpatient (BNV) | payer MEDICARE, MEDICAID, SELFPAY | PROVIDERS: Admitting Provider Nurse Practitioner Acute Care; Emergency Provider Emergency Medicine; PCP Hospitalist; Visit Provider Internal Medicine Cardiovascular Disease | DX: I50.9 Heart failure, unspecified (principal) | CPT/HCPCS: 99222 ==

== ENCOUNTER → 2023-01-22 15:40 | Outpatient (BNV) | payer MEDICARE, MEDICAID, SELFPAY | PROVIDERS: Admitting Provider Nurse Practitioner Acute Care; Emergency Provider Emergency Medicine; PCP Hospitalist; Visit Provider Nurse Practitioner Acute Care | DX: I50.9 Heart failure, unspecified (principal) | CPT/HCPCS: 99223; 99233; 99239 ==

== ENCOUNTER 2023-07-15 17:58 | Emergency (ER) | payer MEDICARE, MEDICAID, SELFPAY ==
--- NOTE | 2023-07-15 | ECG_ITS ---
Test Reason : chest pain Blood Pressure : / mmHG Vent. Rate : 060 BPM Atrial Rate : 060 BPM P-R Int : 174 ms QRS Dur : 118 ms QT Int : 444 ms P-R-T Axes : 055 070 256 degrees QTc Int : 444 ms Normal sinus rhythm Indeterminate axis Incomplete right bundle branch block ST & T wave abnormality, consider inferolateral ischemia Abnormal ECG When compared with ECG of 15-JUL-2023 18:11, T wave inversion now evident in Anterior leads Referred By: Generic ED Physician Electronically Signed By:PHILLIP DENNISON
--- NOTE | 2023-07-15 | ECG_ITS ---
Test Reason : chest pain Blood Pressure : / mmHG Vent. Rate : 060 BPM Atrial Rate : 060 BPM P-R Int : 172 ms QRS Dur : 120 ms QT Int : 454 ms P-R-T Axes : 058 -21 -78 degrees QTc Int : 454 ms Normal sinus rhythm Right bundle branch block Cannot rule out Anterior infarct (cited on or before 15-JUL-2023) Abnormal ECG When compared with ECG of 22-JAN-2023 13:28, Vent. rate has decreased BY 30 BPM Nonspecific T wave abnormality, worse in Inferior leads T wave inversion now evident in Lateral leads Referred By: Generic ED Physician Electronically Signed By:PHILLIP DENNISON
--- NOTE | ~2023-07-15 | XR_ITS ---
EXAMINATION: XR CHEST CLINICAL INFORMATION: Chest pain. COMPARISON: Chest radiograph dated 01/22/2023. TECHNIQUE: Frontal view of the chest was obtained. FINDINGS: The trachea is in normal anatomic position. Heart size remains stable. There is no consolidation within either lung. There is no large pleural effusion. No pneumothorax. There are degenerative changes of the glenohumeral joints. XR/XR chest 1V IMPRESSION: Stable appearance of the heart and lungs. No active disease.
[2023-07-15 18:10] VITALS: BP 139/72; BP 152/71; PULSE 59; PULSE 62; RESP 16; TEMP 36.5; O2SAT 98; BMI 29.5
[2023-07-15 18:59] VITALS: BP 131/57; PULSE 57; RESP 17; TEMP 36.7; O2SAT 100
--- NOTE | 2023-07-15 19:12 | PC.NURSE ---
this rn assumed care of pt, pt resting in stretcher, no acute distress noted, pt on 2L nasal cannula baseline sating 93-96%.
[2023-07-15 21:28] LABS: Eosinophils Absolute Auto 0.2 X10*3/uL (0.0-0.4); Hemoglobin 13.2 g/dl (14.0-18.0); PLT CLUMP 1; SCAN SMEAR FLAG 1
[2023-07-15 21:30] LABS: Basophils Percent Auto 0.3 % (0-2); Eosinophils Percent Auto 4.3 % (0-4); Hematocrit 39.2 % (42.0-52.0); Imm Gran Abs Auto 0.01 X10*3/uL (0.00-0.03); Imm Gran Pct Auto 0.3 % (0.0-0.4); Lymphocytes Absolute Auto 1.2 X10*3/uL (1.2-4.9); Lymphocytes Percent Auto 33.6 % (20-40); MANUAL DIFF FLAG SCAN; Mean Corpuscular HGB Conc 33.7 g/dl (31.0-36.0); Mean Corpuscular Hemoglobin 33.2 pg (27.0-33.0); Mean Corpuscular Volume 98.7 fL (80.0-98.0); Mean Platelet Volume 9.8 fL (9.4-12.4); Monocytes Absolute Auto 0.4 X10*3/uL (0.1-1.2); Monocytes Percent Auto 11.1 % (2-11); Neutrophils Absolute Auto 1.9 x10*3/uL (2.0-8.3); Neutrophils Percent Auto 50.4 % (45-73); Red Blood Count 3.97 X10*6/uL (4.60-5.80); Red Cell Distribution Width 13.9 % (11.0-16.0)
--- NOTE | 2023-07-15 21:34 | PC.NURSE ---
Addendum entered by Shayy Gallego 07/15/23 21:36: pt bilateral lower extremities noted to be red and swollen, dry dressing in place on right calf. Original Note: pt noted to have incontinence of urine, pt changed and repositioned in bed, condom cath placed for comfort. 20G placed in right AC, labs obtained and sent.
--- NOTE | 2023-07-15 21:35 | ED.CHESTPAIN ---
HPI - Chest Pain General Chief Complaint: Chest Pain Stated Complaint: CHEST PAIN Time Seen by Provider: 07/15/23 21:28 Source: patient Mode of arrival: EMS Limitations: other History of Present Illness HPI narrative: Patient is 77 years old with history of CHF , dilated cardiomyopathy ejection fraction of 10% COPD respiratory failure requiring BiPAP , with tardive dyskinesia with speech impairment and cognitive dysfunction came from group home for chest pain started earlier patient looks comfortable after arrival denies any chest pain at this time patient received 4 baby aspirin prior to arrival also patient does have bilateral lower extremity cellulitis and he is on doxycycline Related Data Home Medications ?Medication ?Instructions ?Recorded ?Confirmed acetaminophen 325 mg capsule 650 mg PO Q4H PRN Pain 01/19/20 04/29/23 bicalutamide 50 mg tablet 50 mg PO DAILY 01/19/20 04/29/23 furosemide 20 mg tablet (Lasix) 20 mg PO DAILY 01/19/20 04/29/23 levalbuterol tartrate 45 2 puff inhalation Q4H PRN cough 01/19/20 04/29/23 mcg/actuation aerosol inhaler lorazepam 2 mg/mL injection 1 mg IM Q5M PRN Seizure Activity 01/19/20 04/29/23 solution (Ativan) omeprazole 20 mg capsule,delayed 20 mg PO DAILY@0630 01/19/20 04/29/23 release sennosides 8.6 mg tablet (senna) 8.6 mg PO DAILY PRN Constipation 01/19/20 04/29/23 guaifenesin 100 mg/5 mL oral liquid 200 mg PO Q6H PRN Cough 12/21/21 04/29/23 sodium phosphates 19 gram-7 118 ml NV DAILY PRN Constipation 12/21/21 04/29/23 gram/118 mL enema (Fleet Enema) aluminum-mag hydroxide-simethicone 20 ml PO Q4H PRN Dyspepsia 03/07/22 04/29/23 200 mg-200 mg-20 mg/5 mL oral susp dextran 70-hypromellose (PF) 0.1 1 drp ophthalmic (eye) Q8H PRN Dry 03/07/22 04/29/23 %-0.3 % eye drops in a dropperette Eyes (Artificial Tears (PF)) aspirin 81 mg tablet,delayed 81 mg PO DAILY 08/08/22 04/29/23 release bisacodyl 10 mg rectal suppository 10 mg NV DAILY PRN Constipation 08/08/22 04/29/23 divalproex 125 mg capsule,delayed 1,000 mg PO DAILY 08/08/22 04/29/23 release sprinkle doxycycline hyclate 50 mg capsule 50 mg PO DAILY 08/08/22 04/29/23 levalbuterol tartrate 45 2 puff inhalation BID 08/08/22 04/29/23 mcg/actuation aerosol inhaler sennosides 8.6 mg tablet (senna) 8.6 mg PO BID 08/08/22 04/29/23 amiodarone 200 mg tablet 200 mg PO DAILY 08/23/22 04/29/23 oxycodone 5 mg tablet 2.5 mg PO TID 12/22/22 04/29/23 lactulose 10 gram/15 mL oral 30 ml PO TID constipation 01/22/23 04/29/23 solution Previous Rx's ?Medication ?Instructions ?Recorded carvedilol 3.125 mg tablet 3.125 mg PO BID #0 tabs 08/13/22 sacubitril 24 mg-valsartan 26 mg 1 tab PO BID #60 tabs 01/24/23 tablet (Entresto) cephalexin 500 mg capsule 500 mg PO QID 10 days #40 caps 07/16/23 doxycycline hyclate 100 mg tablet 100 mg PO BID #20 tabs 07/16/23 Allergies Allergy/AdvReac Type Severity Reaction Status Date / Time tuberculin, purified protein Allergy Unknown UNKNOWN Verified 07/15/23 18:24 deriva [Tuberculin,Purif.Prot.Deriv.] Review of Systems Review of Systems: Yes all other systems are reviewed and are negative [facility] Past Medical History Medical History Hypertension CHF (congestive heart failure) Ischemic congestive cardiomyopathy Ventricular tachycardia Pneumonia due to Acinetobacter species Respiratory failure with hypoxia and hypercapnia Diabetes type 2, controlled Hypertension GERD (gastroesophageal reflux disease) Dementia Epilepsy Dysphagia Spinal stenosis Cervicalgia Muscle weakness (generalized) COPD (chronic obstructive pulmonary disease) Schizo affective schizophrenia Surgical History S/P TURP Family History Family History Mother Cancer Social History Social History Household Members: Other Housing: Halfway Housing Other:: [place] [facility] Are you a primary pharmacy customer care specialist to a significant other at home: No Unable to assess alcohol history related to: Unable to respond Alcohol intake: unknown Comment: near RN station Patient Tobacco Use Status: Never used Tobacco Smoked in Last 30 Days: No Second Hand Smoke Exposure: No Use of substances other than those prescribed or required for medical reasons: No Advance Directives: Yes Advance Directives on File: Yes Advance Directives Date on File: 08/14/22 service: No Current occupational status: disabled Physical Exam Vital Signs: Vital Signs: Last Vital Signs Temp 97.7 F 07/16/23 02:12 Pulse 54 07/16/23 02:12 Resp 17 07/16/23 02:12 BP 147/63 H 07/16/23 02:12 Pulse Ox 100 07/16/23 02:12 O2 Del Method Nasal Cannula 07/16/23 02:12 O2 Flow Rate 2 07/16/23 02:12 Oxygen Flow Rate 2 07/15/23 18:10 BMI result Body Mass Index 29.5 Appearance: Alert. And awake no acute distress dysarthria++ denies any chest pain at this time. Eyes: No pallor or icterus ENT: Pharynx normal. Oral Mucosa moist Neck: Normal inspection. Neck supple. CVS: Normal heart rate and rhythm. Pulses normal. Respiratory: No respiratory distress. Equal air entry bilateral, no wheezing/rales/rhonchi Abdomen: Soft and nontender. Bowel sounds are present, no mass palpable, no CVA tenderness Skin: Skin warm and dry. Bilateral lower extremity cellulitis Normal skin turgor. Extremities: 2+ lower extremity edema. No calf tenderness Neuro: Alert and awake with cognitive difficulty and discharge No motor deficit. Medications Administered Discontinued Medications Generic Name Dose Route Start Last Admin Trade Name Freq PRN Reason Stop Dose Admin Cefazolin Sodium 1 gm/ Sodium 50 mls @ 100 mls/hr 07/16/23 00:24 07/16/23 01:08 Chloride IV 07/16/23 00:53 Infused ONCE ONE Infusion Medical Decision Making Medical Decision Making MDM Narrative: Patient has atypical chest pain 2 sets of troponin negative also is on doxycycline 50 daily will increase the dose to under mg twice daily and start on cephalexin patient received 1 g of Ancef in the ER Lab Data [facility] Lab Attestation statement: I reviewed the patient's lab results. 07/15/23 21:22 07/15/23 21:22 Labs: Lab Results 07/15/23 07/15/23 Range/Units 21:22 23:26 WBC 3.7 L (4.8-10.8) X10*3/uL RBC 3.97 L D (4.60-5.80) X10*6/uL Hgb 13.2 L (14.0-18.0) g/dl Hct 39.2 L D (42.0-52.0) % MCV 98.7 H (80.0-98.0) fL MCH 33.2 H (27.0-33.0) pg MCHC 33.7 (31.0-36.0) g/dl RDW 13.9 (11.0-16.0) % Plt Count 156 L (160-400) X10*3/uL MPV 9.8 (9.4-12.4) fL Immature Gran % (Auto) 0.3 (0.0-0.4) % Neut % (Auto) 50.4 (45-73) % Lymph % (Auto) 33.6 (20-40) % [place] % (Auto) 11.1 H (2-11) % Eos % (Auto) 4.3 H (0-4) % Baso % (Auto) 0.3 (0-2) % Lymph # (Auto) 1.2 (1.2-4.9) X10*3/uL [place] # (Auto) 0.4 (0.1-1.2) X10*3/uL Eos # (Auto) 0.2 (0.0-0.4) X10*3/uL Baso # (Auto) 0.0 (0.0-0.2) X10*3/uL Abs Immat Gran (auto) 0.01 (0.00-0.03) X10*3/uL Absolute Neuts (auto) 1.9 L (2.0-8.3) x10*3/uL Absolute Nucleated RBC 0.000 (0.0-0.012) X10*3/uL Nucleated RBC % (auto) 0.0 (0.0-0.2) /100WBC Smear Tech's Comments VERIFIED Sodium 142 (135-145) mmol/L Potassium 5.2 H (3.3-5.1) mmol/L Chloride 108 (96-108) mmol/L Carbon Dioxide 27 (22-29) mmol/L Anion Gap 12 (12-20) BUN 22 H (9-16) mg/dL Creatinine 0.75 (0.5-1.4) mg/dL Estim Creat Clear Calc 80.5 Estimated GFR > 60 Random Glucose 105 (60-115) mg/dL Calcium 8.9 (8.4-10.2) mg/dL Total Bilirubin 0.3 (0.0-1.0) mg/dL AST 15 (5-37) U/L ALT 10 (0-40) U/L Alkaline Phosphatase 57 (39-117) U/L Troponin I High Sens 8.6 D 5.9 (<3.5-35.0) ng/L B-Natriuretic Peptide 34 (<100) pg/mL Total Protein 6.1 L (6.5-8.0) g/dL Albumin 3.5 (3.5-5.0) g/dL Independent Interpretation I performed an independent interpretation of an: EKG Interpretation: Normal sinus rhythm heart rate 60 beats per minute incomplete right bundle-branch nonspecific STT wave change with T inversion in lateral leads similar to that in 01/[address] elevation Discharge Plan Discharge Clinical Impression: Chest pain, Cellulitis Patient Disposition: Xfer [facility] Transfer Details: Patient's EKG without any acute ST elevation/ischemia 2 sets of troponin negative patient need to follow with bottoming machine operator For cellulitis start taking doxycycline 100 mg twice daily and cephalexin 500 mg 4 times a day for 10 days Instructions: Chest Pain (ED), Cellulitis (ED) Additional Instructions: Follow with your PCP Start taking doxycycline and cephalexin for 10 days for cellulitis of lower extremity Prescriptions: New cephalexin 500 mg capsule 500 mg PO QID 10 Days Qty: 40 0RF doxycycline hyclate 100 mg tablet 100 mg PO BID Qty: 20 0RF No Action acetaminophen 325 mg Capsule 650 mg PO Q4H PRN (Reason: Pain) bicalutamide 50 mg Tablet 50 mg PO DAILY lorazepam [Ativan] 2 mg/mL Solution 1 mg IM Q5M PRN (Reason: Seizure Activity) Rx Instructions: may repeat Q 5 minutes x 3 omeprazole 20 mg Capsule,Delayed Release(Dr/Ec) 20 mg PO DAILY@0630 furosemide [Lasix] 20 mg Tablet 20 mg PO DAILY Hold Instructions: Resume on 08/31/22. levalbuterol tartrate 45 mcg/actuation Hfa Aerosol Inhaler 2 puff INHALATION Q4H PRN (Reason: cough) sennosides [senna] 8.6 mg Tablet 8.6 mg PO DAILY PRN (Reason: Constipation) guaifenesin 100 mg/5 mL Liquid 200 mg PO Q6H PRN (Reason: Cough) Fleet Enema 19-7 gram/118 mL Enema 118 ml NV DAILY PRN (Reason: Constipation) alum-mag hydroxide-simeth 200-200-20 mg/5 mL Suspension 20 ml PO Q4H PRN (Reason: Dyspepsia) Artificial Tears (PF) 0.1-0.3 % Dropperette 1 drp OPHTHALMIC (EYE) Q8H PRN (Reason: Dry Eyes) amiodarone 200 mg tablet 200 mg PO DAILY sennosides [senna] 8.6 mg Tablet 8.6 mg PO BID doxycycline hyclate 50 mg capsule 50 mg PO DAILY Rx Instructions: cellulitis prophylaxis aspirin 81 mg Tablet,Delayed Release (Dr/Ec) 81 mg PO DAILY bisacodyl 10 mg Suppository 10 mg NV DAILY PRN (Reason: Constipation) levalbuterol tartrate 45 mcg/actuation HFA aerosol inhaler 2 puff inhalation BID divalproex 125 mg capsule, delayed rel sprinkle 1,000 mg PO DAILY carvedilol 3.125 mg Tablet 3.125 mg PO BID Qty: 0 0RF Protocol: Hold for SBP/HR < HOLD for SBP < : 90 HOLD for HR < : 60 oxycodone 5 mg tablet 2.5 mg PO TID lactulose 10 gram/15 mL solution 30 ml PO TID Entresto 24-26 mg Tablet 1 tab PO BID Qty: 60 0RF Protocol: Hold for SBP< HOLD for SBP < : 90 Interventions: ED Discharge Assessment Last Done: 07/16/23 01:18 Discharge Date/Time: 07/16/23 02:14 Print Language: Georgian
[2023-07-15 21:46] LABS: Alanine Aminotransferase 10 U/L (0-40); Albumin Level 3.5 g/dL (3.5-5.0); Alkaline Phosphatase 57 U/L (39-117); Anion Gap 12 (12-20); Aspartate Amino Transferase 15 U/L (5-37); Bilirubin Total 0.3 mg/dL (0.0-1.0); Blood Urea Nitrogen 22 mg/dL (9-16); Calcium 8.9 mg/dL (8.4-10.2); Carbon Dioxide 27 mmol/L (22-29); Chloride 108 mmol/L (96-108); Creatinine Clr Calc Pharmacy 80.5; Estimated Glomerular Filt Rate > 60; Glucose Random 105 mg/dL (60-115); Potassium 5.2 mmol/L (3.3-5.1); Sodium 142 mmol/L (135-145); Total Protein 6.1 g/dL (6.5-8.0)
[2023-07-15 21:47] VITALS: BP 144/65; PULSE 60; RESP 17; TEMP 36.6; O2SAT 100
[2023-07-15 21:48] LABS: Troponin-I High Sensitivity 8.6 ng/L (<3.5-35.0)
[2023-07-15 22:05] LABS: B Type Natriuretic Peptide 34 pg/mL (<100); Platelet Count 156 X10*3/uL (160-400); SLIDE REVIEW VERIFIED; White Blood Count 3.7 X10*3/uL (4.8-10.8)
[2023-07-15 23:54] LABS: Troponin-I High Sensitivity 5.9 ng/L (<3.5-35.0)
[2023-07-16 00:27] VITALS: BP 144/64; PULSE 60; RESP 17; TEMP 36.7; O2SAT 96
[2023-07-16 01:18] VITALS: BP 114/64; PULSE 60; RESP 17; TEMP 36.6; O2SAT 98
--- NOTE | 2023-07-16 01:18 | PC.NURSE ---
nurse to nurse report given
[2023-07-16 02:12] VITALS: BP 147/63; PULSE 54; RESP 17; TEMP 36.5; O2SAT 100
== END 2023-07-16 02:14 | disposition skilled nursing facility (03) ==
PROVIDERS: Emergency Provider Internal Medicine; PCP Hospitalist
DX: R07.9 Chest pain, unspecified (principal); L03.116 Cellulitis of left lower limb; L03.115 Cellulitis of right lower limb; I11.0 Hypertensive heart disease with heart failure; I50.9 Heart failure, unspecified; E11.9 Type 2 diabetes mellitus without complications; F03.90 Unspecified dementia, unspecified severity, without behavioral disturbance, psychotic disturbance, mood disturbance, and anxiety; J44.9 Chronic obstructive pulmonary disease, unspecified
CPT/HCPCS: 36415; 71045; 80053; 83880; 84484; 85025; 93005; 96365; 99284; 99285; J0690

== ENCOUNTER → 2023-07-15 18:11 | Outpatient (BNV) | payer MEDICARE, MEDICAID, SELFPAY | PROVIDERS: Emergency Provider Internal Medicine; PCP Hospitalist; Visit Provider Internal Medicine | DX: R94.31 Abnormal electrocardiogram [ECG] [EKG] (principal) | CPT/HCPCS: 93010 ==

== ENCOUNTER 2023-12-11 04:07 | Emergency (ER) | payer MEDICARE, MEDICAID, SELFPAY ==
[2023-12-11] VITALS (7 sets, daily range): BP systolic 136–180; BP diastolic 72–90; PULSE 57–68; RESP 15–18; TEMP 36.6–36.9; O2SAT 96–98; BMI 22.8
--- NOTE | 2023-12-11 | ECG_ITS ---
Test Reason : CHEST PAIN Blood Pressure : / mmHG Vent. Rate : 070 BPM Atrial Rate : 070 BPM P-R Int : 184 ms QRS Dur : 122 ms QT Int : 460 ms P-R-T Axes : 000 -80 -57 degrees QTc Int : 496 ms Normal sinus rhythm Indeterminate axis Right bundle branch block Abnormal ECG When compared with ECG of 15-JUL-2023 21:18, QRS axis Shifted left Nonspecific T wave abnormality has replaced inverted T waves in Lateral leads QT has lengthened Referred By: Generic ED Physician Electronically Signed By:DUARTE FLORES
--- NOTE | ~2023-12-11 | XR_ITS ---
EXAMINATION: XR CHEST CLINICAL INFORMATION: Chest pain COMPARISON: 07/15/2023 TECHNIQUE: Frontal view of the chest was obtained. FINDINGS: Lung volumes are symmetric. Subsegmental atelectasis towards the left base. No additional consolidation bilaterally. No evidence of pneumothorax, pleural effusion, or pulmonary edema. The cardiomediastinal contour is unremarkable. Degenerative changes again noted in the glenohumeral joints. XR/XR chest 1V IMPRESSION: Subsegmental left basilar atelectasis without additional acute findings. Electronically signed by: Timo Will MD 12/11/2023 05:39 AM EDT
[2023-12-11 04:53] LABS: MANUAL DIFF FLAG NO
[2023-12-11 04:54] LABS: Basophils Percent Auto 0.2 % (0-2); Eosinophils Absolute Auto 0.2 X10*3/uL (0.0-0.4); Eosinophils Percent Auto 3.5 % (0-4); Hematocrit 41.8 % (42.0-52.0); Hemoglobin 14.3 g/dl (14.0-18.0); Imm Gran Abs Auto 0.01 X10*3/uL (0.00-0.03); Imm Gran Pct Auto 0.2 % (0.0-0.4); Lymphocytes Absolute Auto 1.2 X10*3/uL (1.2-4.9); Lymphocytes Percent Auto 25.2 % (20-40); Mean Corpuscular HGB Conc 34.2 g/dl (31.0-36.0); Mean Corpuscular Hemoglobin 32.5 pg (27.0-33.0); Mean Platelet Volume 8.7 fL (9.4-12.4); Monocytes Absolute Auto 0.5 X10*3/uL (0.1-1.2); Monocytes Percent Auto 10.4 % (2-11); Neutrophils Absolute Auto 2.8 x10*3/uL (2.0-8.3); Neutrophils Percent Auto 60.5 % (45-73); Platelet Count 176 X10*3/uL (160-400); Red Cell Distribution Width 13.8 % (11.0-16.0); White Blood Count 4.6 X10*3/uL (4.8-10.8)
--- NOTE | 2023-12-11 04:56 | ED_ITS ---
HPI - Chest Pain General Chief Complaint: Chest Pain Stated Complaint: Chest Pain Time Seen by Provider: 12/11/23 04:47 Source: patient and EMS Mode of arrival: EMS Limitations: no limitations History of Present Illness ED Provider: DR. Anguiano HPI narrative: 76-year-old male with past medical history significant for COPD, CHF, schizophrenia, epilepsy, prostate cancer, HTN, tardive dyskinesia patient at baseline is nonverbal able to follow commands came in from [facility] in [place] for evaluation of chest pain that started 1 week ago told the nurse about it today. Pain has been poorly characterized by the patient. no shortness of breath otherwise. Related Data Home Medications ?Medication ?Instructions ?Recorded ?Confirmed acetaminophen 325 mg capsule 650 mg PO Q4H PRN Pain 01/19/20 04/29/23 bicalutamide 50 mg tablet 50 mg PO DAILY 01/19/20 10/14/23 furosemide 20 mg tablet (Lasix) 20 mg PO DAILY 01/19/20 10/14/23 lorazepam 2 mg/mL injection 1 mg IM Q5M PRN Seizure Activity 01/19/20 10/14/23 solution (Ativan) omeprazole 20 mg capsule,delayed 20 mg PO DAILY@0630 01/19/20 10/14/23 release guaifenesin 100 mg/5 mL oral liquid 200 mg PO Q6H PRN Cough 12/21/21 10/14/23 sodium phosphates 19 gram-7 118 ml HI DAILY PRN Constipation 12/21/21 10/14/23 gram/118 mL enema (Fleet Enema) aluminum-mag hydroxide-simethicone 20 ml PO Q4H PRN Dyspepsia 03/07/22 10/14/23 200 mg-200 mg-20 mg/5 mL oral susp dextran 70-hypromellose (PF) 0.1 1 drp ophthalmic (eye) Q8H PRN Dry 03/07/22 10/14/23 %-0.3 % eye drops in a dropperette Eyes (Artificial Tears (PF)) aspirin 81 mg tablet,delayed 81 mg PO DAILY 08/08/22 10/14/23 release bisacodyl 10 mg rectal suppository 10 mg HI DAILY PRN Constipation 08/08/22 10/14/23 divalproex 125 mg capsule,delayed 1,000 mg PO DAILY 08/08/22 10/14/23 release sprinkle levalbuterol tartrate 45 2 puff inhalation BID 08/08/22 10/14/23 mcg/actuation aerosol inhaler sennosides 8.6 mg tablet (senna) 8.6 mg PO BID 08/08/22 10/14/23 amiodarone 200 mg tablet 200 mg PO DAILY 08/23/22 10/14/23 oxycodone 5 mg tablet 2.5 mg PO TID 12/22/22 10/14/23 lactulose 10 gram/15 mL oral 30 ml PO TID constipation 01/22/23 10/14/23 solution Previous Rx's ?Medication ?Instructions ?Recorded carvedilol 3.125 mg tablet 3.125 mg PO BID #0 tabs 08/13/22 sacubitril 24 mg-valsartan 26 mg 1 tab PO BID #60 tabs 01/24/23 tablet (Entresto) Allergies Allergy/AdvReac Type Severity Reaction Status Date / Time tuberculin, purified protein Allergy Unknown UNKNOWN Verified 12/11/23 04:53 deriva [Tuberculin,Purif.Prot.Deriv.] Review of Systems 2 Review of Systems: All other systems are reviewed and are negative Constitutional: Reports as per HPI and Reports no additional constitutional complaints Eyes: Reports as per HPI and Reports no additional eye complaints Reports system reviewed and no additional complaints, except as documented Cardiovascular: Reports as per HPI and Reports no additional cardiovascular complaints Respiratory: Reports as per HPI and Reports no additional respiratory complaints Gastrointestinal: Reports as per HPI and Reports no additional gastrointestinal complaints Genitourinary: Reports no additional female genitourinary complaints Musculoskeletal: Reports no additional musculoskeletal complaints Skin/Breast: Reports system reviewed and no additional complaints, except as docu Psychiatric: Reports no additional psychiatric complaints Endocrine: Reports no additional endocrine complaints Hematologic/Lymphatic: Reports no additional hematologic/lymphatic complaints Allergic/Immunologic: Reports no additional allergic/immunologic complaints Reports system reviewed and no additional complaints, except as documented and Reports Abnormal speech present [facility] Past Medical History Medical History Hypertension CHF (congestive heart failure) Ischemic congestive cardiomyopathy Ventricular tachycardia Pneumonia due to Acinetobacter species Respiratory failure with hypoxia and hypercapnia Diabetes type 2, controlled Hypertension GERD (gastroesophageal reflux disease) Dementia Epilepsy Dysphagia Spinal stenosis Cervicalgia Muscle weakness (generalized) COPD (chronic obstructive pulmonary disease) Schizo affective schizophrenia Surgical History S/P TURP Family History Family History Mother Cancer Social History Social History Household Members: Other Housing: Detention Housing Other:: [facility] [place] [facility] Are you a primary administrator health care facility to a significant other at home: No Unable to assess alcohol history related to: Unable to respond Alcohol intake: unknown Comment: near RN station Patient Tobacco Use Status: Never used Tobacco Smoked in Last 30 Days: No Second Hand Smoke Exposure: No Advance Directives: Yes Advance Directives on File: Yes Advance Directives Date on File: 08/14/22 Do you have a plan to hurt others: No Plan service: No Current occupational status: disabled Physical Exam 2 Vital Signs: Vital Signs: Last Vital Signs Temp 98.4 F 12/11/23 06:48 Pulse 58 12/11/23 06:48 Resp 18 12/11/23 06:48 BP 152/74 H 12/11/23 06:48 Pulse Ox 96 12/11/23 06:48 O2 Del Method Room Air 12/11/23 06:48 BMI result Body Mass Index 22.8 Vital signs have been reviewed and appear to be correct. Blood pressure elevated. Heart rate normal. Respiratory rate normal. Temperature normal. Oxygen saturation normal. Appearance: Alert. Oriented X3. No acute distress. Head: Normal external exam. Normocephalic. Atraumatic. No Petersen signs noted. No raccoon eyes noted Eyes: PERRLA. EOMI. Conjunctiva and sclera normal. Eyelids normal. ENT: TM's Normal. Pharynx normal. Uvula midline. Moist mucous membranes. No trismus noted. No drooling noted. No muffled voice noted. Neck: Normal inspection. Neck supple. FROM. No adenopathy. Thyroid Normal. No meningeal signs. No neck mass noted. CVS: Normal heart rate and rhythm. Heart sound normal. No murmurs noted. Pulses normal throughout. Respiratory: No respiratory distress. Painless inspiration. Breath sounds normal. No wheezes/rales/rhonchi noted. left chest wall reproducible tenderness to touch. No accessory muscle usage noted or decreased air movement noted. Abdomen: Soft and nontender. Bowel sounds normal in all 4 quadrants. No distention noted. No organomegaly noted. No visible injury noted. Back: No CVA tenderness. Full range of motion noted. Skin: Skin warm and dry. Normal skin color. Normal skin turgor. No rashes/lesions/lacerations noted. Extremities: No lower extremity edema. Extremities exhibit normal range of motion. Extremities nontender. Neuro: Oriented X 3. Cranial nerve exam: II-XII are grossly intact No motor deficit. No sensory deficit. Reflexes normal. Course Reevaluation(s) Reevaluation #1: patient was chest pain for a week, Negative troponin, EKG is unchanged from previous EKG discharge back to the long-term. Time: 07:56 Medical Decision Making Differential Diagnosis Differential Diagnoses: The differential diagnosis associated with the presentation includes ( ACS, costochondritis, chest wall pain, pneumonia, pneumothorax, pleural effusion. Severe anemia, electrolyte derangement.) Admission/Observation Consideration of admission/observation: Escalation of care including admission/observation considered Lab Data MDM Lab Attestation statement: I reviewed the patient's lab results. 12/11/23 04:49 12/11/23 04:49 Labs: Lab Results 12/11/23 Range/Units 04:49 WBC 4.6 L (4.8-10.8) X10*3/uL RBC 4.40 L (4.60-5.80) X10*6/uL Hgb 14.3 (14.0-18.0) g/dl Hct 41.8 L (42.0-52.0) % MCV 95.0 (80.0-98.0) fL MCH 32.5 (27.0-33.0) pg MCHC 34.2 (31.0-36.0) g/dl RDW 13.8 (11.0-16.0) % Plt Count 176 (160-400) X10*3/uL MPV 8.7 L (9.4-12.4) fL Immature Gran % (Auto) 0.2 (0.0-0.4) % Neut % (Auto) 60.5 (45-73) % Lymph % (Auto) 25.2 (20-40) % [place] % (Auto) 10.4 (2-11) % Eos % (Auto) 3.5 (0-4) % Baso % (Auto) 0.2 (0-2) % Lymph # (Auto) 1.2 (1.2-4.9) X10*3/uL [place] # (Auto) 0.5 (0.1-1.2) X10*3/uL Eos # (Auto) 0.2 (0.0-0.4) X10*3/uL Baso # (Auto) 0.0 (0.0-0.2) X10*3/uL Abs Immat Gran (auto) 0.01 (0.00-0.03) X10*3/uL Absolute Neuts (auto) 2.8 (2.0-8.3) x10*3/uL Absolute Nucleated RBC 0.000 (0.0-0.012) X10*3/uL Nucleated RBC % (auto) 0.0 (0.0-0.2) /100WBC Sodium 140 (135-145) mmol/L Potassium 3.8 (3.3-5.1) mmol/L Chloride 104 (96-108) mmol/L Carbon Dioxide 25 (22-29) mmol/L Anion Gap 15 (12-20) BUN 21 H (9-16) mg/dL Creatinine 0.77 (0.5-1.4) mg/dL Estim Creat Clear Calc 76.0 Estimated GFR > 60 Random Glucose 85 (60-115) mg/dL Calcium 9.8 D (8.4-10.2) mg/dL Total Bilirubin 0.3 (0.0-1.0) mg/dL Direct Bilirubin 0.1 (0.0-0.5) mg/dL AST 17 (5-37) U/L ALT 23 (0-40) U/L Alkaline Phosphatase 107 (39-117) U/L Troponin I High Sens 5.1 (<3.5-35.0) ng/L Total Protein 7.8 (6.5-8.0) g/dL Albumin 4.3 (3.5-5.0) g/dL Lipase 15 (8-78) U/L Independent Interpretation I performed an independent interpretation of an: EKG ( Normal sinus rhythm at 70 beats per minutes, right bundle branch block, no significant change from previous EKG.) and Plain X-Ray ( chest:Subsegmental left basilar atelectasis without additional acute findings) Radiology Impression Discussion of test interpretation with radiology: I have reviewed the radiologist's reading. Discharge Plan Discharge Clinical Impression: Chest pain Patient Disposition: Home, Self-Care Instructions: Chest Pain (ED) Prescriptions: No Action acetaminophen 325 mg Capsule 650 mg PO Q4H PRN (Reason: Pain) bicalutamide 50 mg Tablet 50 mg PO DAILY lorazepam [Ativan] 2 mg/mL Solution 1 mg IM Q5M PRN (Reason: Seizure Activity) Rx Instructions: may repeat Q 5 minutes x 3 omeprazole 20 mg Capsule,Delayed Release(Dr/Ec) 20 mg PO DAILY@0630 furosemide [Lasix] 20 mg Tablet 20 mg PO DAILY guaifenesin 100 mg/5 mL Liquid 200 mg PO Q6H PRN (Reason: Cough) Fleet Enema 19-7 gram/118 mL Enema 118 ml HI DAILY PRN (Reason: Constipation) alum-mag hydroxide-simeth 200-200-20 mg/5 mL Suspension 20 ml PO Q4H PRN (Reason: Dyspepsia) Artificial Tears (PF) 0.1-0.3 % Dropperette 1 drp OPHTHALMIC (EYE) Q8H PRN (Reason: Dry Eyes) amiodarone 200 mg tablet 200 mg PO DAILY sennosides [senna] 8.6 mg Tablet 8.6 mg PO BID aspirin 81 mg Tablet,Delayed Release (Dr/Ec) 81 mg PO DAILY bisacodyl 10 mg Suppository 10 mg HI DAILY PRN (Reason: Constipation) levalbuterol tartrate 45 mcg/actuation HFA aerosol inhaler 2 puff inhalation BID divalproex 125 mg capsule, delayed rel sprinkle 1,000 mg PO DAILY carvedilol 3.125 mg Tablet 3.125 mg PO BID Qty: 0 0RF Protocol: Hold for SBP/HR < HOLD for SBP < : 90 HOLD for HR < : 60 oxycodone 5 mg tablet 2.5 mg PO TID lactulose 10 gram/15 mL solution 30 ml PO TID Entresto 24-26 mg Tablet 1 tab PO BID Qty: 60 0RF Protocol: Hold for SBP< HOLD for SBP < : 90 Referrals: Richard Castillo DO [Primary Care Provider] - Print Language: Slovenian
[2023-12-11 05:09] LABS: Alanine Aminotransferase 23 U/L (0-40); Albumin Level 4.3 g/dL (3.5-5.0); Alkaline Phosphatase 107 U/L (39-117); Anion Gap 15 (12-20); Aspartate Amino Transferase 17 U/L (5-37); Bilirubin Direct 0.1 mg/dL (0.0-0.5); Bilirubin Total 0.3 mg/dL (0.0-1.0); Blood Urea Nitrogen 21 mg/dL (9-16); Calcium 9.8 mg/dL (8.4-10.2); Carbon Dioxide 25 mmol/L (22-29); Chloride 104 mmol/L (96-108); Estimated Glomerular Filt Rate > 60; Glucose Random 85 mg/dL (60-115); Lipase 15 U/L (8-78); Potassium 3.8 mmol/L (3.3-5.1); Sodium 140 mmol/L (135-145); Total Protein 7.8 g/dL (6.5-8.0)
[2023-12-11 05:14] LABS: Troponin-I High Sensitivity 5.1 ng/L (<3.5-35.0)
--- NOTE | 2023-12-11 10:07 | PC.NURSE ---
Resumed care of pt at 0700. Pt resting in bed quietly, respirations even and unlabored, lung sounds cta bilaterally, no increased wob/sob noted, s1 and s2 heard, abdomen soft, non-tender on palpation. Pt d/c, plan for ambulance [facility] to [facility]. Pt wears O2 at home PRN, maintaining O2 sat 95-97% on RA. Pt c/o no pain, updated on plan of care, call moore within reach, all needs met at this time.
== END 2023-12-11 10:29 ==
PROVIDERS: Emergency Provider Emergency Medicine; PCP Hospitalist
DX: R07.9 Chest pain, unspecified (principal); J44.9 Chronic obstructive pulmonary disease, unspecified; I11.0 Hypertensive heart disease with heart failure; I50.9 Heart failure, unspecified; G40.909 Epilepsy, unspecified, not intractable, without status epilepticus; Z85.46 Personal history of malignant neoplasm of prostate; Z79.899 Other long term (current) drug therapy
CPT/HCPCS: 36415; 71045; 80048; 80076; 83690; 84484; 85025; 93005; 99283; 99285

== ENCOUNTER 2024-04-15 10:40 | Inpatient (IN) | payer MEDICARE, MEDICAID, SELFPAY ==
[2024-04-15] VITALS (7 sets, daily range): BP systolic 109–151; BP diastolic 56–67; PULSE 60–70; RESP 14–18; TEMP 36.3–37.4; O2SAT 94–98; BMI 26.4
--- NOTE | ~2024-04-15 | US_ITS ---
EXAMINATION: US TRIPLEX LOWER EXTREMITY, RIGHT CLINICAL INFORMATION: Cellulitis, erythema, swelling. COMPARISON: 12/25/2018. TECHNIQUE: Color-flow triplex imaging with spectral analysis and compression Doppler were performed on the right lower extremity. FINDINGS: Respiratory variation, normal compression and augmented flow are noted throughout the right lower extremity. The visualized common femoral vein, superficial femoral vein, profunda femoral vein, popliteal vein and midcalf peroneal and posterior tibial venous segments show no evidence of deep venous thrombosis. There is no Maier's cyst. Incidental note is made of reactive appearing right groin lymph nodes. US/US venous duplex LE RT IMPRESSION: No evidence of deep venous thrombosis involving the right lower extremity. Electronically signed by: Rodney Julian MD 04/17/2024 10:34 AM CHASE
--- NOTE | ~2024-04-15 | CT_ITS ---
. EXAMINATION: CT lower extremity with contrast, right side. CLINICAL INFORMATION: Trauma versus infection. COMPARISON: No priors. TECHNIQUE: Contiguous axial images through the right lower extremity from the knee to the ankle using 3 mm collimation with soft tissue and bone algorithm following the IV contrast administration. Total of 85 cc Omnipaque 350 strength given without reported immediate complications. Sagittal and coronal reformatted images acquired. This CT examination was performed using dose optimization techniques as appropriate with variously including the following: Automatic exposure control Adjustment of the MA and/or KV according to patient size Use of interactive reconstruction technique. DLP: 317 mGy centimeter. FINDINGS: There is edema pattern in a circumferential fashion extending from the skin to the the fat planes from the proximal mid diaphysis tibia and fibula/lower leg to the ankle. I do not see a peripheral enhancing fluid collection. There is fatty atrophy of the muscles of the anterior and posterior compartment. The vessels are patent. There are calcified plaques, scattered without a gross high degree stenosis based upon this exam. Joint space narrowing involving the lateral compartment with endplate sclerosis of the lateral tibial plateau and lateral femoral condyle and small marginal osteophyte formation. There is a bone marrow inhomogeneity involving mostly the proximal diaphysis of the tibia. There is no subcutaneous emphysema. No periosteal bone reaction. No acute cortical disruption. No gross malalignment in the right knee. There is no gross suprapatellar bursa joint effusion. There is small amount of fluid in the femoral tibial joint space. CT/CT lower leg RT w IV con IMPRESSION: Consider cellulitis without phlegmon and/or abscess. No gross osteomyelitis. Electronically signed by: Vinny Stoll MD 04/15/2024 03:10 PM CHASE
--- NOTE | 2024-04-15 11:21 | ED.GENADULT ---
HPI - General Adult General Chief complaint: Extremity Injury, Lower Stated complaint: R LEG CELLULITIS FROM SNF PER EMS Time Seen by Provider: 04/15/24 11:01 Source: patient Mode of arrival: EMS History of Present Illness HPI narrative: This is a 78-year-old man with a past medical history of COPD, CHF schizophrenia, epilepsy, prostate cancer, hypertension, tardive dyskinesia, nonverbal at baseline/able to follow commands who [facility] for evaluation of right lower extremity cellulitis. History is limited due to nonverbal state. Related Data Home Medications ?Medication ?Instructions ?Recorded ?Confirmed acetaminophen 325 mg capsule 650 mg PO Q4H PRN Pain 01/19/20 03/27/24 bicalutamide 50 mg tablet 50 mg PO DAILY 01/19/20 03/27/24 furosemide 20 mg tablet (Lasix) 20 mg PO DAILY 01/19/20 03/27/24 lorazepam 2 mg/mL injection 1 mg IM Q5M PRN Seizure Activity 01/19/20 03/27/24 solution (Ativan) omeprazole 20 mg capsule,delayed 20 mg PO DAILY@0630 01/19/20 03/27/24 release guaifenesin 100 mg/5 mL oral liquid 200 mg PO Q6H PRN Cough 12/21/21 03/27/24 sodium phosphates 19 gram-7 118 ml DC DAILY PRN Constipation 12/21/21 03/27/24 gram/118 mL enema (Fleet Enema) aluminum-mag hydroxide-simethicone 20 ml PO Q4H PRN Dyspepsia 03/07/22 03/27/24 200 mg-200 mg-20 mg/5 mL oral susp dextran 70-hypromellose (PF) 0.1 1 drp ophthalmic (eye) Q8H PRN Dry 03/07/22 03/27/24 %-0.3 % eye drops in a dropperette Eyes (Artificial Tears (PF)) aspirin 81 mg tablet,delayed 81 mg PO DAILY 08/08/22 03/27/24 release bisacodyl 10 mg rectal suppository 10 mg DC DAILY PRN Constipation 08/08/22 03/27/24 divalproex 125 mg capsule,delayed 1,000 mg PO DAILY 08/08/22 03/27/24 release sprinkle levalbuterol tartrate 45 2 puff inhalation BID 08/08/22 03/27/24 mcg/actuation aerosol inhaler sennosides 8.6 mg tablet (senna) 8.6 mg PO BID 08/08/22 03/27/24 amiodarone 200 mg tablet 200 mg PO DAILY 08/23/22 03/27/24 oxycodone 5 mg tablet 2.5 mg PO TID 12/22/22 03/27/24 lactulose 10 gram/15 mL oral 30 ml PO TID constipation 01/22/23 03/27/24 solution Previous Rx's ?Medication ?Instructions ?Recorded carvedilol 3.125 mg tablet 3.125 mg PO BID #0 tabs 08/13/22 sacubitril 24 mg-valsartan 26 mg 1 tab PO BID #60 tabs 01/24/23 tablet (Entresto) Allergies Allergy/AdvReac Type Severity Reaction Status Date / Time tuberculin, purified protein Allergy Unknown UNKNOWN Verified 04/15/24 10:53 deriva [Tuberculin,Purif.Prot.Deriv.] Review of Systems Review of Systems: ROS as per HPI [facility] Past Medical History Medical History Hypertension CHF (congestive heart failure) Ischemic congestive cardiomyopathy Ventricular tachycardia Pneumonia due to Acinetobacter species Respiratory failure with hypoxia and hypercapnia Diabetes type 2, controlled Hypertension GERD (gastroesophageal reflux disease) Dementia Epilepsy Dysphagia Spinal stenosis Cervicalgia Muscle weakness (generalized) COPD (chronic obstructive pulmonary disease) Schizo affective schizophrenia Surgical History S/P TURP Family History Family History Mother Cancer Social History Social History Household Members: Other Housing: [facility] Housing Other:: [facility] [place] [facility] Are you a primary youth career specialist to a significant other at home: No Unable to assess alcohol history related to: Unable to respond Alcohol intake: unknown Comment: near RN station Patient Tobacco Use Status: Never used Tobacco Second Hand Smoke Exposure: No Advance Directives: Yes Advance Directives on File: Yes Advance Directives Date on File: 08/14/22 Do you have a plan to hurt others: No Plan service: No Current occupational status: disabled Physical Exam ED Vital Signs: Vital Signs - 24 hr 04/15/24 11:23 04/15/24 12:33 Temperature 99.3 F 98.3 F Pulse Rate 64 63 Respiratory Rate 16 16 Blood Pressure 111/59 L 135/67 Pulse Oximetry 98 96 Oxygen Delivery Method Room Air Room Air BMI result Body Mass Index 26.4 Gen: NAD, AOx3 HEENT: NCAT, EOMI, normal conjunctiva CV: RRR Pulm: CTAB, no increased work of breathing GI: Soft, NTND, no rebound, guarding or rigidity Neuro: Grossly non focal Skin: Warm, dry, erythema/warmth to RLE without crepitus/purulence Medications Administered Discontinued Medications Generic Name Dose Route Start Last Admin Trade Name Freq PRN Reason Stop Dose Admin Cefazolin Sodium/Dextrose 2 gm in 50 mls @ 100 mls/hr 04/15/24 12:09 04/15/24 12:28 Ancef IV 04/15/24 12:38 100 mls/hr ONCE ONE Administration Medical Decision Making Medical Decision Making [facility] Narrative: 1212 - patient arrives for treatment of cellulitis failing outpatient treatment with oral antibiotics necessitating IV antibiotics. Patient is afebrile and hemodynamically stable on room air. Will obtain screening blood work including blood cultures. We will provide cefazolin empirically at this time. Considered MRSA coverage, but patient has no systemic signs of toxicity such as with fever, hypertension or sustained tachycardia. There is no purulence on exam as above. The patient does not neutropenic and otherwise CBC is unremarkable with stable chronic anemia with hemoglobin 12.3 (previous 12.4). Differential diagnosis includes, but is not limited to cellulitis, erysipelas. Patient is afebrile and hemodynamically stable on room air. Exam is benign is consistent with cellulitis and given lack of response to oral antibiotics will provide cefazolin here in the emergency room. Patient is given 2 g IV cefazolin. I reviewed and interpreted the patient's labs as below, which are overall very reassuring with no emergent findings. I discussed patient's case and management with admitting hospitalist, Dr. Epstein, and patient is admitted for further workup and management. Admission/Observation Consideration of admission/observation: Escalation of care including admission/observation considered Consult Healthcare Provider Management of the patient was discussed with: Hospitalist Lab Data MDM Lab Attestation statement: I reviewed the patient's lab results. 04/15/24 11:58 04/15/24 11:58 Labs: Lab Results 04/15/24 Range/Units 11:58 WBC 7.5 (4.8-10.8) X10*3/uL RBC 3.87 L (4.60-5.80) X10*6/uL Hgb 12.3 L (14.0-18.0) g/dl Hct 37.7 L (42.0-52.0) % MCV 97.4 (80.0-98.0) fL MCH 31.8 (27.0-33.0) pg MCHC 32.6 (31.0-36.0) g/dl RDW 15.3 (11.0-16.0) % Plt Count 198 (160-400) X10*3/uL MPV 8.9 L (9.4-12.4) fL Immature Gran % (Auto) 0.4 (0.0-0.4) % Neut % (Auto) 72.2 (45-73) % Lymph % (Auto) 13.4 L (20-40) % [place] % (Auto) 13.3 H (2-11) % Eos % (Auto) 0.4 (0-4) % Baso % (Auto) 0.3 (0-2) % Lymph # (Auto) 1.0 L (1.2-4.9) X10*3/uL [place] # (Auto) 1.0 (0.1-1.2) X10*3/uL Eos # (Auto) 0.0 (0.0-0.4) X10*3/uL Baso # (Auto) 0.0 (0.0-0.2) X10*3/uL Abs Immat Gran (auto) 0.03 (0.00-0.03) X10*3/uL Absolute Neuts (auto) 5.4 (2.0-8.3) x10*3/uL Absolute Nucleated RBC 0.000 (0.0-0.012) X10*3/uL Nucleated RBC % (auto) 0.0 (0.0-0.2) /100WBC Sodium 144 (135-145) mmol/L Potassium 4.4 (3.3-5.1) mmol/L Chloride 108 (96-108) mmol/L Carbon Dioxide 25 (22-29) mmol/L Anion Gap 15 (12-20) BUN 40 H (9-16) mg/dL Creatinine 0.98 (0.5-1.4) mg/dL Estim Creat Clear Calc 58.0 Estimated GFR > 60 Random Glucose 93 (60-115) mg/dL Lactic Acid 1.4 (0.5-2.0) mmol/L Calcium 9.0 (8.4-10.2) mg/dL External Record Review External record reviewed: Outpatient record I independently reviewed the patient's external/non-emergency department record, which demonstrates that patient was diagnosed with a right lower extremity cellulitis and started on Keflex 2 days prior to presentation and was referred to the emergency room for IV antibiotics given that cellulitis was not improving/resolving Discharge Plan Discharge Clinical Impression: Cellulitis of leg, right Patient Disposition: Admitted As Inpatient Prescriptions: No Action acetaminophen 325 mg Capsule 650 mg PO Q4H PRN (Reason: Pain) bicalutamide 50 mg Tablet 50 mg PO DAILY lorazepam [Ativan] 2 mg/mL Solution 1 mg IM Q5M PRN (Reason: Seizure Activity) Rx Instructions: may repeat Q 5 minutes x 3 omeprazole 20 mg Capsule,Delayed Release(Dr/Ec) 20 mg PO DAILY@0630 furosemide [Lasix] 20 mg Tablet 20 mg PO DAILY guaifenesin 100 mg/5 mL Liquid 200 mg PO Q6H PRN (Reason: Cough) Fleet Enema 19-7 gram/118 mL Enema 118 ml DC DAILY PRN (Reason: Constipation) alum-mag hydroxide-simeth 200-200-20 mg/5 mL Suspension 20 ml PO Q4H PRN (Reason: Dyspepsia) Artificial Tears (PF) 0.1-0.3 % Dropperette 1 drp OPHTHALMIC (EYE) Q8H PRN (Reason: Dry Eyes) amiodarone 200 mg tablet 200 mg PO DAILY sennosides [senna] 8.6 mg Tablet 8.6 mg PO BID aspirin 81 mg Tablet,Delayed Release (Dr/Ec) 81 mg PO DAILY bisacodyl 10 mg Suppository 10 mg DC DAILY PRN (Reason: Constipation) levalbuterol tartrate 45 mcg/actuation HFA aerosol inhaler 2 puff inhalation BID divalproex 125 mg capsule, delayed rel sprinkle 1,000 mg PO DAILY carvedilol 3.125 mg Tablet 3.125 mg PO BID Qty: 0 0RF Protocol: Hold for SBP/HR < HOLD for SBP < : 90 HOLD for HR < : 60 oxycodone 5 mg tablet 2.5 mg PO TID lactulose 10 gram/15 mL solution 30 ml PO TID sacubitril-valsartan [Entresto] 24-26 mg Tablet 1 tab PO BID Qty: 60 0RF Protocol: Hold for SBP< HOLD for SBP < : 90 Print Language: Sinhala
[2024-04-15 12:07] LABS: MANUAL DIFF FLAG NO
[2024-04-15 12:10] LABS: Basophils Percent Auto 0.3 % (0-2); Eosinophils Percent Auto 0.4 % (0-4); Hematocrit 37.7 % (42.0-52.0); Hemoglobin 12.3 g/dl (14.0-18.0); Imm Gran Abs Auto 0.03 X10*3/uL (0.00-0.03); Imm Gran Pct Auto 0.4 % (0.0-0.4); Lymphocytes Percent Auto 13.4 % (20-40); Mean Corpuscular HGB Conc 32.6 g/dl (31.0-36.0); Mean Corpuscular Hemoglobin 31.8 pg (27.0-33.0); Mean Corpuscular Volume 97.4 fL (80.0-98.0); Mean Platelet Volume 8.9 fL (9.4-12.4); Monocytes Percent Auto 13.3 % (2-11); Neutrophils Absolute Auto 5.4 x10*3/uL (2.0-8.3); Neutrophils Percent Auto 72.2 % (45-73); Platelet Count 198 X10*3/uL (160-400); Red Blood Count 3.87 X10*6/uL (4.60-5.80); Red Cell Distribution Width 15.3 % (11.0-16.0); White Blood Count 7.5 X10*3/uL (4.8-10.8)
[2024-04-15 12:27] LABS: Anion Gap 15 (12-20); Blood Urea Nitrogen 40 mg/dL (9-16); Carbon Dioxide 25 mmol/L (22-29); Chloride 108 mmol/L (96-108); Estimated Glomerular Filt Rate > 60; Glucose Random 93 mg/dL (60-115); Lactic Acid 1.4 mmol/L (0.5-2.0); Potassium 4.4 mmol/L (3.3-5.1); Sodium 144 mmol/L (135-145)
[2024-04-15] MEDS: ceFAZolin Sodium/Dextrose,Iso 2 GM/50 ML PIGGYBACK IV (12:28)
--- NOTE | 2024-04-15 12:30 | PC.NURSE ---
2nd set of blood cultures obtained/sent to lab by tech. abx administered per provider order.
--- NOTE | 2024-04-15 13:03 | P.HPHOSP_ITS ---
History of Present Illness Date of Service: 04/15/24 Attending physician on admission: Apollo Dey Chief Complaint: Right lower extremity cellulitis Pt is a 78-year-old male with a PMH significant for?COPD, HFrEF w/LVEF 10-15%, CAD, dysphagia, epilepsy, prostate cancer, HTN, unspecified dementia, schizophrenia, and tardive dyskenisia who presents to the ED from [facility] for evaluation of right lower extremity cellulitis in need of IV antibiotics. Pt was started on Keflex 250 mg q.i.d. on Saturday with apparetnly little to no improvement. Called SNF for more information about progression of patient's symptoms, but was unable to find out more information. Pt was seen and evaluated by facilities physician and sent to the ED for further evaluation. Pt himself is primarily nonverbal and unable to provide additional meaningful HPI. Pt does complain of pain in his lower extremity, particularly around the ankle. In the ED pt with elevated temp of 99.3 degrees, vitals otherwise stable. Labs were grossly unremarkable and around baseline for pt. No leukocytosis. Stable normocytic anemia. No significant electrolyte abnormalities. Renal function WNL. Lactic acid WNL. Pt was treated with with Ancef. Pt will be admitted to the hospital for treatment and further evaluation of right lower extremity cellulitis that failed outpatient therapy. Review of Systems 2 Review of Systems: Yes Unobtainable due to mental status COUNT INCLUDES THE [facility] Medical History Hypertension CHF (congestive heart failure) Ischemic congestive cardiomyopathy Ventricular tachycardia Pneumonia due to Acinetobacter species Respiratory failure with hypoxia and hypercapnia Diabetes type 2, controlled Hypertension GERD (gastroesophageal reflux disease) Dementia Epilepsy Dysphagia Spinal stenosis Cervicalgia Muscle weakness (generalized) COPD (chronic obstructive pulmonary disease) Schizo affective schizophrenia Family History Mother Cancer Surgical History S/P TURP Social History Household Members: Other Housing: Intermediate Housing Other:: [place] [facility] Are you a primary career advisor to a significant other at home: No Unable to assess alcohol history related to: Unable to respond Alcohol intake: unknown Comment: near RN station Patient Tobacco Use Status: Never used Tobacco Second Hand Smoke Exposure: No Advance Directives Date on File: 08/14/22 service: No Current occupational status: disabled Meds Allergies Allergy/AdvReac Type Severity Reaction Status Date / Time tuberculin, purified protein Allergy Unknown UNKNOWN Verified 04/15/24 10:53 deriva [Tuberculin,Purif.Prot.Deriv.] Home Medications ?Medication ?Instructions ?Recorded ?Confirmed ?Last Taken ?Type acetaminophen 325 mg capsule 650 mg PO Q6H PRN Pain 01/19/20 04/15/24 Unknown History bicalutamide 50 mg tablet 50 mg PO DAILY 01/19/20 04/15/24 08/22/22 History furosemide 20 mg tablet (Lasix) 40 mg PO DAILY 01/19/20 04/15/24 08/22/22 History lorazepam 2 mg/mL injection 1 mg IM Q5M PRN Seizure Activity 01/19/20 04/15/24 Unknown History solution (Ativan) omeprazole 20 mg capsule,delayed 20 mg PO DAILY@0630 01/19/20 04/15/24 08/22/22 History release guaifenesin 100 mg/5 mL oral liquid 200 mg PO Q6H PRN Cough 12/21/21 04/15/24 Unknown History sodium phosphates 19 gram-7 118 ml [place] DAILY PRN Constipation 12/21/21 04/15/24 Unknown History gram/118 mL enema (Fleet Enema) aspirin 81 mg tablet,delayed 81 mg PO DAILY 08/08/22 04/15/24 08/22/22 History release bisacodyl 10 mg rectal suppository 10 mg [place] DAILY PRN Constipation 08/08/22 04/15/24 Unknown History divalproex 125 mg capsule,delayed 875 mg PO DAILY 08/08/22 04/15/24 08/22/22 History release sprinkle levalbuterol tartrate 45 2 puff inhalation BID 08/08/22 04/15/24 08/22/22 History mcg/actuation aerosol inhaler sennosides 8.6 mg tablet (senna) 8.6 mg PO BID PRN Constipation 08/08/22 04/15/24 08/22/22 History amiodarone 200 mg tablet 200 mg PO DAILY 08/23/22 04/15/24 Unknown History oxycodone 5 mg tablet 2.5 mg PO TID 12/22/22 04/15/24 Unknown History lactulose 10 gram/15 mL oral 30 ml PO TID elevated ammonia 01/22/23 04/15/24 Unknown History solution aluminum-mag hydroxide-simethicone 20 ml PO Q4H PRN Dyspepsia 04/15/24 04/15/24 Unknown History 200 mg-200 mg-20 mg/5 mL oral susp cephalexin 250 mg capsule 250 mg PO QID cellulitis 04/15/24 04/15/24 Unknown History doxycycline hyclate 50 mg tablet 50 mg PO DAILY Prophylaxis 04/15/24 04/15/24 Unknown History levalbuterol tartrate 45 2 inh inhalation Q4H PRN sob 04/15/24 04/15/24 Unknown History mcg/actuation aerosol inhaler levothyroxine 25 mcg tablet 25 mcg PO DAILY@0600 04/15/24 04/15/24 Unknown History naloxone 4 mg/actuation nasal 4 mg intranasal Q3M PRN Opioid 04/15/24 04/15/24 Unknown History spray (Narcan) Overdose polyvinyl alcohol 1.4 % eye drops 1 drp ophthalmic (eye) Q8H 04/15/24 04/15/24 Unknown History (Artificial Tears (polyvinyl alcohol)) Physical Exam 2 Vital Signs and Narrative: Vital Signs: Last Vital Signs Temp 98.3 F 04/15/24 12:33 Pulse 63 04/15/24 12:33 Resp 16 04/15/24 12:33 BP 135/67 04/15/24 12:33 Pulse Ox 96 04/15/24 12:33 O2 Del Method Room Air 04/15/24 12:33 BMI result Body Mass Index 26.4 General: AOx1, promiarily nonverbal. In no acute distress Resp: CTA bilaterally CVS: S1, S2, RRR GI: +BS, NT, no distention Skin: Warm, dry Neuro: Cranial nerves II-XII grossly intact bilaterally. Motor grossly intact bilaterally. Tardive dyskinesia facial movements including lip smacking. Extremities: Right lower extremity with significant and well-demarcated erythema extending from mid thigh down through the foot. Tender and with some warmth. Superficial abrasions to anterior marcus without significant drainage. As pictured below Psych: Appropriate affect Results Labs 04/15/24 11:58 04/15/24 11:58 Labs: Laboratory Results - last 24 hr 04/15/24 11:58 MCV 97.4 MCH 31.8 MCHC 32.6 RDW 15.3 Plt Count 198 MPV 8.9 L Immature Gran % (Auto) 0.4 Neut % (Auto) 72.2 Lymph % (Auto) 13.4 L [place] % (Auto) 13.3 H Eos % (Auto) 0.4 Baso % (Auto) 0.3 Lymph # (Auto) 1.0 L [place] # (Auto) 1.0 Eos # (Auto) 0.0 Baso # (Auto) 0.0 Abs Immat Gran (auto) 0.03 Absolute Neuts (auto) 5.4 Absolute Nucleated RBC 0.000 Nucleated RBC % (auto) 0.0 Anion Gap 15 Estim Creat Clear Calc 58.0 Estimated GFR > 60 Random Glucose 93 Lactic Acid 1.4 Calcium 9.0 Assessment and Plan (1) Cellulitis of leg, right: Status: Acute Plan Pt is a 78-year-old male with a PMH significant for?COPD, HFrEF w/LVEF 10-15%, CAD, dysphagia, epilepsy, prostate cancer, HTN, unspecified dementia, schizophrenia, and tardive dyskenisia who presents to the ED from [facility] for evaluation of right lower extremity cellulitis in need of IV antibiotics. Pt will be admitted to the hospital for treatment and further evaluation of right lower extremity cellulitis that failed outpatient therapy. Right leg erythema Very well-demarcated extending from mid thigh through foot Concerning for ecchymosis, ?possible trauma Likely with underlying cellulitis secondary to superficial skin abrasions No sepsis: No fever, tachycardia, tachypnea, or leukocytosis; lactic acid WNL Pt is started on broad-spectrum antibiotics in the ED Will empirically cover with vanc and Zosyn, started 04/15/[address] w/contrast of right lower extremity Will gently resuscitate with 1L IVF post contrast Wound care consult COPD Not in acute exacerbation Continue home inhalers HFrEF Not in acute exacerbation, clinically euvolemic Continue home Lasix, Entresto, carvedilol Seizure disorder Continue divalproex, Ativan p.r.n. CAD Continue aspirin Hypothyroidism Levothyroxine GERD PPI Full Code Attending:?Dr. Dey DVT Prophylaxis: Lovenox Pt will require a hospitalization of at least two nights for treatment of?right lower extremity cellulitis that failed outpatient therapy that will require IV antibiotics. Quality Stroke Does the patient have a stroke diagnosis?: No VTE Prior VTE?: No VTE Risk Level:: Medical - moderate - high VTE Device Contraindication: Treatment Not Indicated VTE Drug Contraindication: N/A - Med Ordered
--- NOTE | 2024-04-15 13:33 | PHA.MEDREC ---
Pharmacy Consult ? Medication Reconciliation Pharmacy has completed the medication reconciliation. Utilized med list from [facility].
[2024-04-15] MEDS: iohexoL 350 MG/ML 100 ML INFUS..BTL 85 ML IV (14:31)
[2024-04-15] MEDS: Enoxaparin Sodium 40 MG/0.4 ML SYRINGE SUBCUT (14:44)
[2024-04-15] MEDS: vancomycin/NS 2,000 MG/500 ML PLAST..BAG 250 MG IV (14:44)
[2024-04-15] MEDS: oxyCODONE HCl Immed Release 5 MG TABLET 2.5 MG PO ×2 (14:46→22:10)
[2024-04-15] MEDS: Lactulose 20 GM/30 ML SOLUTION PO (14:46)
--- NOTE | 2024-04-15 15:18 | PC.NURSE ---
report given to MARQUIS Painter in overflow at this time.
[2024-04-15] MEDS: Artificial Tears 15 ML DROPS 1 DROP EYE-BOTH (15:28)
[2024-04-15] MEDS: Lactated Ringers 1,000 ML 80 ML IVCONT (17:38)
[2024-04-15] MEDS: 0.9 % Sodium Chloride Flush 3 ML SYRINGE IVFLUSH (17:43)
[2024-04-15] MEDS: Piperacillin Sodium/Tazobactam 3.375 GM in 0.9 % Sodium Chloride 50 ML IV (17:49)
[2024-04-15] MEDS: Sacubitril/Valsartan 24/26 1 TAB TABLET PO (22:06)
[2024-04-15] MEDS: carvediloL 3.125 MG TABLET PO (22:09)
[2024-04-15] MEDS: Melatonin 3 MG TABLET 6 MG PO (22:11)
[2024-04-16] VITALS (7 sets, daily range): BP systolic 90–127; BP diastolic 43–59; PULSE 50–71; RESP 12–20; TEMP 36.1–36.6; O2SAT 94–98; BMI 26.4
[2024-04-16] MEDS: Piperacillin Sodium/Tazobactam 3.375 GM in 0.9 % Sodium Chloride 50 ML IV ×4 (02:06→18:26)
[2024-04-16] MEDS: Omeprazole 20 MG CAPSULE.DR PO (06:25)
[2024-04-16 06:37] LABS: Anion Gap 11 (12-20); Blood Urea Nitrogen 25 mg/dL (9-16); Calcium 8.6 mg/dL (8.4-10.2); Carbon Dioxide 25 mmol/L (22-29); Chloride 111 mmol/L (96-108); Creatinine Clr Calc Pharmacy 86.2; Estimated Glomerular Filt Rate > 60; Glucose Random 107 mg/dL (60-115); Potassium 4.2 mmol/L (3.3-5.1); Sodium 143 mmol/L (135-145)
[2024-04-16] MEDS: Albuterol Sulfate 90 MCG 8 GM INHALER 2 PUFF INHALE (08:09)
[2024-04-16] MEDS: Bicalutamide 50 MG TABLET PO (08:20)
[2024-04-16] MEDS: Divalproex Sodium Sprinkles 125 MG CAP.DR.SPR 875 MG PO (08:20)
[2024-04-16] MEDS: Furosemide 40 MG TABLET PO (08:22)
[2024-04-16] MEDS: Amiodarone HCL 200 MG TABLET PO (08:23)
[2024-04-16] MEDS: Aspirin Enteric Coated 81 MG TABLET.DR PO (08:23)
[2024-04-16] MEDS: oxyCODONE HCl Immed Release 5 MG TABLET 2.5 MG PO ×3 (08:23→21:25)
[2024-04-16] MEDS: Levothyroxine Sodium 25 MCG TABLET PO (08:23)
[2024-04-16] MEDS: 0.9 % Sodium Chloride Flush 3 ML SYRINGE IVFLUSH ×2 (08:26→21:27)
[2024-04-16] MEDS: Lactulose 20 GM/30 ML SOLUTION PO ×3 (08:26→21:26)
[2024-04-16] MEDS: Artificial Tears 15 ML DROPS 1 DROP EYE-BOTH (08:26)
--- NOTE | 2024-04-16 08:37 | PC.NURSE ---
Addendum entered by Miriam Munoz RN 04/16/24 08:40: RLE red/warm to touch Original Note: pt awake/alert to baseline- non verbal with this nurse. rr equal/non labored, lungs diminished rll exp wheezing, [place] cath patient/draining, meds in applesauce-pt has scheduled pain medications but unable to communicate pain level, 1:1 feed-ate well for breakfast. call moore within reach, plan of care ongoing
--- NOTE | 2024-04-16 08:52 | MHC.CM.PN ---
CM spoke with Guardian/Bethanie @ [phone] and addressed IMM with her; original will be mailed to Guardian and a copy will be placed on the chart. Patient is a LTC Resident of [facility] and it is the Guardian's goal for Patient to return there at time of dc. CM has initiated and will follow for dc planning. Patient is a [place] Medicaid bed hold at the SNF.
[2024-04-16 12:30] LABS: Vancomycin Random 8.7 mcg/mL (15-20)
--- NOTE | 2024-04-16 12:56 | HE.PHANOTE ---
RE: VANCO DOSING Trough came back as 8.7 (after loading dose). Dose of 1250 mg q24h is to start @1400 04/16/24, next trough is scheduled for 04/17/24 @1200 to see how patient is doing.
[2024-04-16] MEDS: Lactated Ringers 500 ML 50 ML IVCONT (13:48)
[2024-04-16] MEDS: Enoxaparin Sodium 40 MG/0.4 ML SYRINGE SUBCUT (14:09)
[2024-04-16] MEDS: vancomycin HCL 1,250 MG in 0.9 % Sodium Chloride 250 ML 166.67 MG IV (14:11)
--- NOTE | 2024-04-16 16:05 | HO.WOUND ---
Wound Consult: Initial 78yr old? male admitted to [facility] on 04/15/24 13:42 - See progress notes and H&P for detailed history.? Wound consult placed for Right Lower Leg wound.? Patient agreeable to assessment and photo documentation.? Right Lower Leg Etiology: ??Venous dermatitis with Cellulitis Present on Admission Wound Bed: scattered open areas suspect originated as bulla, clean dry wound beds Drainage / Odor: none noted Edges: ? irregular Noem[place] wound: dry dark red warm to touch -? No Induration, Fluctuance noted redness within markings Pain: difficult to assess patient has difficulty communicating Goals of Treatment: ? Moist wound healing and lower leg elevation. Concern for vascular component will TT provider to consider consult given no palpable pulses weak by doppler, thin skin, brittle nails and pigmentation. Recommendations: 1. Turn and Reposition every 2 hours and as needed for patient comfort.? Use pillows or wedges to support off loading positions. 2. Off Load all bony prominences with use of pillows and heel boots if needed.? Apply Preventative foams where needed. ? 3. Monitor for incontinence and moisture control, use barrier creams when needed for prevention and treatment. 4. Provide adequate and supplemental nutrition.? 5. Order llow air loss mattress. 6. When applicable maintain blood glucose levels per Providers order. 7. Right Lower Leg - Elevate on pillows. Cleanse with Ns, pat dry. Apply lotion to leg and cover open wounds with xeroform and dry gauze, wrap. change daily. Re-consult wound care Nurse for wound deterioration or wound changes.
--- NOTE | 2024-04-16 16:55 | HO.PM.IMPN ---
Subjective Subjective Date of Service: 04/16/24 Interval History: seen and examined this morning follow up for RLE cellulitis patient awake and alert, NAD Review of Systems Review of Systems: Yes all other systems are reviewed and are negative Constitutional Constitutional: Denies chills and Denies fever(s) Cardiovascular Cardiovascular: Denies chest pain Physical Exam Vital Signs: Vital Signs: Last Vital Signs Temp 96.9 F 04/16/24 15:53 Pulse 71 04/16/24 15:53 Resp 18 04/16/24 15:53 BP 127/57 L 04/16/24 15:53 Pulse Ox 98 04/16/24 15:53 O2 Del Method Room Air 04/16/24 13:07 BMI result Body Mass Index 26.4 Const: General: alert, awake and Physically active Nutritional Appearance: average body habitus Resp: Effort & Inspection: normal respiratory effort, able to speak in complete sentences, no respiratory distress and no use of accessory muscles Cardio: Rate: regular rate GI: Inspection: No distended Palpation (GI): Soft to palpation and nontender Skin: Other: erythema; dry scaly skin -see wound care notes Neuro: General: moves all extremities Objective Data Active Medications Acetaminophen (Acetaminophen 325 Mg Tablet) 650 mg PO Q6H PRN PRN Reason: Pain, Mild 1-3,fever,headache Al Hydroxide/Mg Hydroxide (Magnesium Hydrox/Alum Hydrox 30 Ml Oral.Susp) 20 ml PO Q4H PRN PRN Reason: Dyspepsia Albuterol Sulfate (Albuterol Sulfate 90 Mcg 8 Gm Inhaler) 2 puff INHALE BID [facility] Last Admin: 04/16/24 08:09 Dose: 2 puff Documented By: BAILEY Albuterol Sulfate (Albuterol Sulfate 90 Mcg 8 Gm Inhaler) 2 puff INHALE Q4H PRN PRN Reason: Shortness of Breath Amiodarone HCl (Amiodarone Hcl 200 Mg Tablet) 200 mg PO DAILY [facility] Last Admin: 04/16/24 08:23 Dose: 200 mg Documented By: TOSHA Artificial Tears (Artificial Tears 15 Ml Drops) 1 drop EYE-BOTH Q8H [facility] Last Admin: 04/16/24 08:26 Dose: 1 drop Documented By: TOSHA Aspirin (Aspirin Enteric Coated 81 Mg Tablet.) 81 mg PO DAILY [facility] Last Admin: 04/16/24 08:23 Dose: 81 mg Documented By: TOSHA Bicalutamide (Bicalutamide 50 Mg Tablet) 50 mg PO DAILY [facility] Last Admin: 04/16/24 08:20 Dose: 50 mg Documented By: TOSHA Bisacodyl (Bisacodyl 10 Mg Supp.Rect) [address] DAILY PRN PRN Reason: Constipation Calcium Carbonate (Calcium Carbonate 750 Mg Tab.Chew) 750 mg PO Q4H PRN PRN Reason: Heartburn Carvedilol (Carvedilol 3.125 Mg Tablet) 3.125 mg PO BID [facility]; Protocol Last Admin: 04/16/24 08:32 Dose: Not Given Documented By: TOSHA Non-Admin Reason: Physician Held Med Divalproex Sodium (Divalproex Sodium Sprinkles 125 Mg ) 875 mg PO DAILY [facility] Last Admin: 04/16/24 08:20 Dose: 875 mg Documented By: TOSHA Enoxaparin Sodium (Enoxaparin Sodium 40 Mg/0.4 Ml Syringe) 40 mg SUBCUT Q24H [facility] Last Admin: 04/16/24 14:09 Dose: 40 mg Documented By: JOHN Furosemide (Furosemide 40 Mg Tablet) 40 mg PO DAILY [facility]; Protocol Last Admin: 04/16/24 08:22 Dose: 40 mg Documented By: TOSHA Guaifenesin (Guaifenesin 200 Mg/10 Ml 10 Ml Liquid) 10 ml PO Q6H PRN PRN Reason: Cough Piperacillin Sod/Tazobactam (Sod 3.375 gm/ Sodium Chloride) 50 mls @ 100 mls/hr IV Q6H [facility] Last Infusion: 04/16/24 13:38 Dose: Infused Documented By: VIC Vancomycin HCl 1,250 mg/ (Sodium Chloride) 250 mls @ 166.667 mls/hr IV Q24H [facility] Last Infusion: 04/16/24 15:47 Dose: Infused Documented By: VIC Lactated Ringer's (Lr) 500 mls @ 50 mls/hr IVCONT .Q10H [facility] Stop: 04/16/24 23:14 Last Admin: 04/16/24 13:48 Dose: 50 mls/hr Documented By: VIC Lactulose (Lactulose 20 Gm/30 Ml Solution) 20 gm PO TID [facility] Last Admin: 04/16/24 15:24 Dose: 20 gm Documented By: JOHN Levothyroxine Sodium (Levothyroxine Sodium 25 Mcg Tablet) 25 mcg PO DAILY@0600 [facility] Last Admin: 04/16/24 08:23 Dose: 25 mcg Documented By: TOSHA Lorazepam (Lorazepam 2 Mg/Ml Vial) 1 mg IM Q5M PRN PRN Reason: Seizure Activity Magnesium Hydroxide (Milk Of Magnesia 30 Ml Oral.Susp) 30 ml PO DAILY PRN PRN Reason: Constipation Melatonin (Melatonin 3 Mg Tablet) 6 mg PO BEDTIME PRN PRN Reason: Insomnia Last Admin: 04/15/24 22:11 Dose: 6 mg Documented By: VALERIA Naloxone HCl (Naloxone Hcl Nasal 4 Mg [place]) 4 mg NOSTRILALT Q3M PRN PRN Reason: Opioid Overdose Omeprazole (Omeprazole 20 Mg Capsule.Dr) 20 mg PO DAILY@0630 [facility] Last Admin: 04/16/24 06:25 Dose: 20 mg Documented By: VALERIA Ondansetron HCl (Ondansetron Hcl 4 Mg/2 Ml Vial) 4 mg IVPUSH Q8H PRN PRN Reason: Nausea and Vomiting Oxycodone HCl (Oxycodone Hcl Immed Release 5 Mg Tablet) 2.5 mg PO TID [facility] Last Admin: 04/16/24 15:22 Dose: 2.5 mg Documented By: JOHN Pharmacy Consult (Consult Rx Vancomycin Dosing) 1 each MISCELLANE DAILY PRN PRN Reason: Consult order Sacubitril/Valsartan (Sacubitril/Valsartan 1 Tab Tablet) 1 tab PO BID [facility]; Protocol Last Admin: 04/16/24 08:32 Dose: Not Given Documented By: TOSHA Non-Admin Reason: Physician Held Med Senna (Sennosides 8.6 Mg Tablet) 8.6 mg PO BID PRN PRN Reason: Constipation Sodium Biphosphate/Sodium Phosphate (Sodium Phosphate,[place]-Dibasic 133 Ml Enema) [address] DAILY PRN PRN Reason: Constipation Sodium Chloride (0.9 % Sodium Chloride Flush 3 Ml Syringe) 3 ml IVFLUSH QSHIFT [facility] Last Admin: 04/16/24 15:27 Dose: Not Given Documented By: JOHN Non-Admin Reason: IV Running Labs 04/15/24 11:58 04/16/24 05:58 Labs: Laboratory Results - last 24 hr 04/16/24 04/16/24 05:58 12:06 Anion Gap 11 L Estim Creat Clear Calc 86.2 Estimated GFR > 60 Random Glucose 107 Calcium 8.6 Random Vancomycin 8.7 L Microbiology Microbiology Results: Microbiology 04/15/24 12:28 Blood Culture - Preliminary Blood - Venous No growth after 24 hours. 04/15/24 11:58 Blood Culture - Preliminary Blood - Venous No growth after 24 hours. Assessment and Plan (1) Cellulitis of leg, right: Status: Acute Plan Pt is a 78-year-old male with a PMH significant for?COPD, HFrEF w/LVEF 10-15%, CAD, dysphagia, epilepsy, prostate cancer, HTN, unspecified dementia, schizophrenia, and tardive dyskenisia who presents to the ED from [facility] for evaluation of right lower extremity cellulitis in need of IV antibiotics. Pt will be admitted to the hospital for treatment and further evaluation of right lower extremity cellulitis that failed outpatient therapy. Right leg erythema due to cellulitis due to possible underlying PVD CT with no abscess continue vanc and Zosyn, started 04/15/2024 vascular surgery consult pending Wound care consult: Cleanse with Ns, pat dry. Apply lotion to leg and cover open wounds with xeroform and dry gauze, wrap. change daily blood cultures negative to date soft bp due to medication not due to severe sepsis COPD Not in acute exacerbation Continue home inhalers HFrEF Not in acute exacerbation, clinically euvolemic Continue home Lasix, Entresto, carvedilol - meds placed on hold due to soft bp. monitor closely low EF so likely to have bp on the lower side h/o ventricular arrhythmia, unspecified suppressed with amiodorone Seizure disorder Continue divalproex, Ativan p.r.n. chronic dysphagia continue NDD2 diet, aspiration precautions CAD Continue aspirin Hypothyroidism Levothyroxine GERD PPI Full Code DVT Prophylaxis: Lovenox Pt will require a hospitalization of at least two nights for treatment of?right lower extremity cellulitis that failed outpatient therapy that will require IV antibiotics. Quality Stroke Does the patient have a stroke diagnosis?: No VTE Prior VTE?: No VTE Risk Level:: Medical - moderate - high VTE Device Contraindication: Treatment Not Indicated VTE Drug Contraindication: N/A - Med Ordered
[2024-04-16] MEDS: carvediloL 3.125 MG TABLET PO (21:25)
[2024-04-17] MEDS: Piperacillin Sodium/Tazobactam 3.375 GM in 0.9 % Sodium Chloride 50 ML IV ×4 (01:39→18:12)
[2024-04-17 03:13] VITALS: BP 113/55; PULSE 60; RESP 16; TEMP 36.2; O2SAT 97
[2024-04-17] MEDS: Levothyroxine Sodium 25 MCG TABLET PO (05:40)
[2024-04-17] MEDS: Omeprazole 20 MG CAPSULE.DR PO (05:40)
[2024-04-17] MEDS: Bicalutamide 50 MG TABLET PO (07:21)
[2024-04-17] MEDS: Aspirin Enteric Coated 81 MG TABLET.DR PO (07:22)
[2024-04-17] MEDS: oxyCODONE HCl Immed Release 5 MG TABLET 2.5 MG PO ×3 (07:22→20:49)
[2024-04-17] MEDS: Lactulose 20 GM/30 ML SOLUTION PO ×3 (07:22→20:56)
[2024-04-17] MEDS: 0.9 % Sodium Chloride Flush 3 ML SYRINGE IVFLUSH ×2 (07:22→15:31)
[2024-04-17] MEDS: carvediloL 3.125 MG TABLET PO ×2 (07:22→20:49)
[2024-04-17] MEDS: Amiodarone HCL 200 MG TABLET PO (07:22)
[2024-04-17] MEDS: Divalproex Sodium Sprinkles 125 MG CAP.DR.SPR 875 MG PO (07:23)
[2024-04-17 07:29] LABS: Anion Gap 11 (12-20); Blood Urea Nitrogen 16 mg/dL (9-16); Calcium 8.4 mg/dL (8.4-10.2); Carbon Dioxide 29 mmol/L (22-29); Chloride 104 mmol/L (96-108); Creatinine Clr Calc Pharmacy 84.9; Estimated Glomerular Filt Rate > 60; Glucose Random 83 mg/dL (60-115); Potassium 4.6 mmol/L (3.3-5.1); Sodium 139 mmol/L (135-145)
[2024-04-17 07:43] VITALS: BP 124/78; PULSE 58; RESP 16; TEMP 36.8; O2SAT 97
--- NOTE | 2024-04-17 08:49 | PM.CNGS ---
History of Present Illness Consult details Consult date: 04/17/24 Narrative: We were consulted on Prateek for right lower extremity cellulitis. He presented to the ER yesterday from custodial facility for cellulitis, failing outpatient oral antibiotic therapy. He is nonverbal at baseline and non ambulatory. He does have a significant medical history including NSTEMI, pneumonia, prostate cancer, COPD, congestive heart failure, hypertension, schizophrenia, and tardive dyskinesia. Review of Systems Constitutional: Constitutional: Reports as per HPI and Denies weakness ENT: Reports Normal hearing present and Denies dizziness Cardiovascular: Cardiovascular: Reports as per HPI, Denies chest pain, Denies chest pain at rest, Denies chest pain with activity, Denies dyspnea and Denies dyspnea on exertion Respiratory: Respiratory: Reports as per HPI, Denies cough, Denies dyspnea and Denies dyspnea on exertion Gastrointestinal: Gastrointestinal: Reports as per HPI, Denies abdominal pain, Denies nausea and Denies vomiting Musculoskeletal: Musculoskeletal: Denies numbness Integumentary/Breasts: Skin/Breast: Reports as per HPI, Denies erythema and Denies wounds Neurologic: Reports Normal hearing present, Denies dizziness, Denies numbness, Denies Sensory deficit (Neuro) and Denies weakness Psychiatric: Psychiatric: Reports no additional psychiatric complaints Endocrine: Endocrine: Reports no additional endocrine complaints [facility] Past Medical History Medical History Hypertension CHF (congestive heart failure) Ischemic congestive cardiomyopathy Ventricular tachycardia Pneumonia due to Acinetobacter species Respiratory failure with hypoxia and hypercapnia Diabetes type 2, controlled Hypertension GERD (gastroesophageal reflux disease) Dementia Epilepsy Dysphagia Spinal stenosis Cervicalgia Muscle weakness (generalized) COPD (chronic obstructive pulmonary disease) Schizo affective schizophrenia Family History Family History Mother Cancer Surgical History Surgical History S/P TURP Social History Social History Household Members: Other Household Members Other:: Resides at [facility] Housing: [facility]iary Housing Other:: [place] [facility] Are you a primary managed care nurse to a significant other at home: No Do you presently have visiting nurse or other home services: No (Pt resides at [facility]) Unable to assess alcohol history related to: Unable to respond Alcohol intake: unknown Comment: near RN station Patient Tobacco Use Status: Never used Tobacco Second Hand Smoke Exposure: No Advance Directives Date on File: 08/14/22 service: No Current occupational status: disabled Meds Allergies Allergy/AdvReac Type Severity Reaction Status Date / Time tuberculin, purified protein Allergy Unknown UNKNOWN Verified 04/15/24 10:53 deriva [Tuberculin,Purif.Prot.Deriv.] Active Medications: Current Medications Acetaminophen (Acetaminophen 325 Mg Tablet) 650 mg PO Q6H PRN PRN Reason: Pain, Mild 1-3,fever,headache Al Hydroxide/Mg Hydroxide (Magnesium Hydrox/Alum Hydrox 30 Ml Oral.Susp) 20 ml PO Q4H PRN PRN Reason: Dyspepsia Albuterol Sulfate (Albuterol Sulfate 90 Mcg 8 Gm Inhaler) 2 puff INHALE BID [facility] Last Admin: 04/17/24 08:24 Dose: Not Given Albuterol Sulfate (Albuterol Sulfate 90 Mcg 8 Gm Inhaler) 2 puff INHALE Q4H PRN PRN Reason: Shortness of Breath Amiodarone HCl (Amiodarone Hcl 200 Mg Tablet) 200 mg PO DAILY [facility] Last Admin: 04/17/24 07:22 Dose: 200 mg Artificial Tears (Artificial Tears 15 Ml Drops) 1 drop EYE-BOTH Q8H [facility] Last Admin: 04/17/24 07:23 Dose: Not Given Aspirin (Aspirin Enteric Coated 81 Mg Tablet.Dr) 81 mg PO DAILY [facility] Last Admin: 04/17/24 07:22 Dose: 81 mg Bicalutamide (Bicalutamide 50 Mg Tablet) 50 mg PO DAILY [facility] Last Admin: 04/17/24 07:21 Dose: 50 mg Bisacodyl (Bisacodyl 10 Mg Supp.Rect) 10 mg MD DAILY PRN PRN Reason: Constipation Calcium Carbonate (Calcium Carbonate 750 Mg Tab.Chew) 750 mg PO Q4H PRN PRN Reason: Heartburn Carvedilol (Carvedilol 3.125 Mg Tablet) 3.125 mg PO BID [facility]; Protocol Last Admin: 04/17/24 07:22 Dose: 3.125 mg Divalproex Sodium (Divalproex Sodium Sprinkles 125 Mg Cap) 875 mg PO DAILY [facility] Last Admin: 04/17/24 07:23 Dose: 875 mg Enoxaparin Sodium (Enoxaparin Sodium 40 Mg/0.4 Ml Syringe) 40 mg SUBCUT Q24H [facility] Last Admin: 04/16/24 14:09 Dose: 40 mg Furosemide (Furosemide 40 Mg Tablet) 40 mg PO DAILY [facility]; Protocol Last Admin: 04/16/24 08:22 Dose: 40 mg Guaifenesin (Guaifenesin 200 Mg/10 Ml 10 Ml Liquid) 10 ml PO Q6H PRN PRN Reason: Cough Piperacillin Sod/Tazobactam (Sod 3.375 gm/ Sodium Chloride) 50 mls @ 100 mls/hr IV Q6H [facility] Last Infusion: 04/17/24 06:11 Dose: Infused Vancomycin HCl 1,250 mg/ (Sodium Chloride) 250 mls @ 166.667 mls/hr IV Q24H [facility] Last Infusion: 04/16/24 15:47 Dose: Infused Lactulose (Lactulose 20 Gm/30 Ml Solution) 20 gm PO TID [facility] Last Admin: 04/17/24 07:22 Dose: 20 gm Levothyroxine Sodium (Levothyroxine Sodium 25 Mcg Tablet) 25 mcg PO DAILY@0600 [facility] Last Admin: 04/17/24 05:40 Dose: 25 mcg Lorazepam (Lorazepam 2 Mg/Ml Vial) 1 mg IM Q5M PRN PRN Reason: Seizure Activity Magnesium Hydroxide (Milk Of Magnesia 30 Ml Oral.Susp) 30 ml PO DAILY PRN PRN Reason: Constipation Melatonin (Melatonin 3 Mg Tablet) 6 mg PO BEDTIME PRN PRN Reason: Insomnia Last Admin: 04/15/24 22:11 Dose: 6 mg Naloxone HCl (Naloxone Hcl Nasal 4 Mg [place]) 4 mg NOSTRILALT Q3M PRN PRN Reason: Opioid Overdose Omeprazole (Omeprazole 20 Mg Capsule.Dr) 20 mg PO DAILY@0630 [facility] Last Admin: 04/17/24 05:40 Dose: 20 mg Ondansetron HCl (Ondansetron Hcl 4 Mg/2 Ml Vial) 4 mg IVPUSH Q8H PRN PRN Reason: Nausea and Vomiting Oxycodone HCl (Oxycodone Hcl Immed Release 5 Mg Tablet) 2.5 mg PO TID [facility] Last Admin: 04/17/24 07:22 Dose: 2.5 mg Pharmacy Consult (Consult Rx Vancomycin Dosing) 1 each MISCELLANE DAILY PRN PRN Reason: Consult order Sacubitril/Valsartan (Sacubitril/Valsartan 1 Tab Tablet) 1 tab PO BID [facility]; Protocol Last Admin: 04/16/24 08:32 Dose: Not Given Senna (Sennosides 8.6 Mg Tablet) 8.6 mg PO BID PRN PRN Reason: Constipation Sodium Biphosphate/Sodium Phosphate (Sodium Phosphate,[place]-Dibasic 133 Ml Enema) 118 ml MD DAILY PRN PRN Reason: Constipation Sodium Chloride (0.9 % Sodium Chloride Flush 3 Ml Syringe) [facility] Last Admin: 04/17/24 07:22 Dose: 3 ml Home Medications ?Medication ?Instructions ?Recorded ?Confirmed ?Last Taken ?Type acetaminophen 325 mg capsule 650 mg PO Q6H PRN Pain 01/19/20 04/15/24 Unknown History bicalutamide 50 mg tablet 50 mg PO DAILY 01/19/20 04/15/24 08/22/22 History furosemide 20 mg tablet (Lasix) 40 mg PO DAILY 01/19/20 04/15/24 08/22/22 History lorazepam 2 mg/mL injection 1 mg IM Q5M PRN Seizure Activity 01/19/20 04/15/24 Unknown History solution (Ativan) omeprazole 20 mg capsule,delayed 20 mg PO DAILY@0630 01/19/20 04/15/24 08/22/22 History release guaifenesin 100 mg/5 mL oral liquid 200 mg PO Q6H PRN Cough 12/21/21 04/15/24 Unknown History sodium phosphates 19 gram-7 118 ml MD DAILY PRN Constipation 12/21/21 04/15/24 Unknown History gram/118 mL enema (Fleet Enema) aspirin 81 mg tablet,delayed 81 mg PO DAILY 08/08/22 04/15/24 08/22/22 History release bisacodyl 10 mg rectal suppository 10 mg MD DAILY PRN Constipation 08/08/22 04/15/24 Unknown History divalproex 125 mg capsule,delayed 875 mg PO DAILY 08/08/22 04/15/24 08/22/22 History release sprinkle levalbuterol tartrate 45 2 puff inhalation BID 08/08/22 04/15/24 08/22/22 History mcg/actuation aerosol inhaler sennosides 8.6 mg tablet (senna) 8.6 mg PO BID PRN Constipation 08/08/22 04/15/24 08/22/22 History amiodarone 200 mg tablet 200 mg PO DAILY 08/23/22 04/15/24 Unknown History oxycodone 5 mg tablet 2.5 mg PO TID 12/22/22 04/15/24 Unknown History lactulose 10 gram/15 mL oral 30 ml PO TID elevated ammonia 01/22/23 04/15/24 Unknown History solution aluminum-mag hydroxide-simethicone 20 ml PO Q4H PRN Dyspepsia 04/15/24 04/15/24 Unknown History 200 mg-200 mg-20 mg/5 mL oral susp cephalexin 250 mg capsule 250 mg PO QID cellulitis 04/15/24 04/15/24 Unknown History doxycycline hyclate 50 mg tablet 50 mg PO DAILY Prophylaxis 04/15/24 04/15/24 Unknown History levalbuterol tartrate 45 2 inh inhalation Q4H PRN sob 04/15/24 04/15/24 Unknown History mcg/actuation aerosol inhaler levothyroxine 25 mcg tablet 25 mcg PO DAILY@0600 04/15/24 04/15/24 Unknown History naloxone 4 mg/actuation nasal 4 mg intranasal Q3M PRN Opioid 04/15/24 04/15/24 Unknown History spray (Narcan) Overdose polyvinyl alcohol 1.4 % eye drops 1 drp ophthalmic (eye) Q8H 04/15/24 04/15/24 Unknown History (Artificial Tears (polyvinyl alcohol)) Physical Exam Vital Signs: Vital Signs: Last Vital Signs Temp 98.3 F 04/17/24 07:43 Pulse 58 04/17/24 07:43 Resp 16 04/17/24 07:43 BP 124/78 04/17/24 07:43 Pulse Ox 97 04/17/24 07:43 O2 Del Method Room Air 04/17/24 07:43 BMI result Body Mass Index 26.4 Const: General: comfortable and no acute distress Orientation/consciousness: patient oriented x3 HEENT: Ears: hearing grossly normal bilaterally Resp: Effort & Inspection: normal respiratory effort and able to speak in complete sentences Auscultation: clear to auscultation bilaterally Cardio: Rate: regular rate Rhythm: regular rhythm Heart sounds: S1 normal heart sound present and S2 normal heart sound present Bruits: no abdominal aortic bruits, no carotid bruits, no femoral bruits and no renal bruits GI: Palpation (GI): No Abdominal aortic bruit present Neuro: General: patient oriented x3 Cranial nerves: Yes Normal hearing present Sensory Exam: No Sensory deficit (Neuro) Extrem: Other: Right lower extremity: Warmth, redness, and swelling noted from the foot to approximately mid thigh, circumferentially. Approximately 5 cm wound noted around the tibial tuberosity, with pink wound bed and healing edges, with scab forming. Palpable DP pulses. Cap refill within 3 seconds. Left lower extremity: Palpable DP pulses. No swelling, warmth, or redness noted. Results Labs 04/15/24 11:58 04/17/24 05:07 Labs: Abnormal lab results 04/16/24 04/17/24 Range/Units 12:06 05:07 Anion Gap 11 L (12-20) Random Vancomycin 8.7 L (15-20) mcg/mL BMP 04/17/24 05:07 Sodium 139 Potassium 4.6 Chloride 104 Carbon Dioxide 29 BUN 16 Creatinine 0.67 Calcium 8.4 All other labs normal. Assessment and Plan (1) Cellulitis of leg, right: Status: Acute Plan We were consulted on Prateek, a nonverbal nonambulatory 78yo male patient with multiple comorbidities, for right lower extremity cellulitis. He has been started on IV antibiotics. There was a lower extremity CT ordered which did not reveal any abscesses. We have ordered a venous duplex ultrasound to rule out DVT. We will await the results of the ultrasound. We suggest continuing with IV antibiotics. We will continue to monitor. Thank you for the consult. If there are any other questions or concerns, please do not hesitate to reach out to us. Procedures Date of Service Date of Service: 04/17/24
[2024-04-17 09:10] VITALS: BP 146/67
[2024-04-17] MEDS: Furosemide 40 MG TABLET PO (09:10)
[2024-04-17 13:11] LABS: Vancomycin Random 9.1 mcg/mL (15-20)
[2024-04-17] MEDS: Enoxaparin Sodium 40 MG/0.4 ML SYRINGE SUBCUT (13:17)
--- NOTE | 2024-04-17 13:17 | HE.PHANOTE ---
Re: Margo Renal function has improved since 04/15. Trough returned at 9.1. Dose increased to 1500mg q24 with predicated AUC 404, predicted trough 10.3. If I kept the current regimen of 1250mg q24h it would of been below desired AUC. Next trough 04/18 @ 1200.
[2024-04-17 14:00] VITALS: BP 147/67; PULSE 60; RESP 16; TEMP 36.4; O2SAT 96
[2024-04-17] MEDS: vancomycin HCL 1,500 MG in 0.9 % Sodium Chloride 500 ML 333.33 MG IV (14:05)
--- NOTE | 2024-04-17 15:17 | MHC.CM.PN ---
per rounds pt from [facility] pt is not medically ready for dc
--- NOTE | 2024-04-17 16:48 | HO.PM.IMPN ---
Subjective Subjective Date of Service: 04/17/24 Interval History: seen and examined this morning follow up for RLE cellulitis no overnight events Review of Systems Review of Systems: Yes all other systems are reviewed and are negative Constitutional Constitutional: Denies fever(s) Cardiovascular Cardiovascular: Denies chest pain Gastrointestinal Gastrointestinal: Denies abdominal pain Physical Exam Vital Signs: Vital Signs: Last Vital Signs Temp 97.6 F 04/17/24 14:00 Pulse 60 04/17/24 14:00 Resp 16 04/17/24 14:00 BP 147/67 H 04/17/24 14:00 Pulse Ox 96 04/17/24 14:00 O2 Del Method Room Air 04/17/24 14:00 BMI result Body Mass Index 26.4 Const: General: alert, awake and Physically active Nutritional Appearance: average body habitus Resp: Effort & Inspection: normal respiratory effort, able to speak in complete sentences, no respiratory distress and no use of accessory muscles Cardio: Rate: regular rate GI: Inspection: No distended Palpation (GI): Soft to palpation and nontender Skin: Other: erythema; dry scaly skin with demarcated erythema extending up right thigh, seems to be receding slightly Neuro: General: moves all extremities Objective Data Active Medications Acetaminophen (Acetaminophen 325 Mg Tablet) 650 mg PO Q6H PRN PRN Reason: Pain, Mild 1-3,fever,headache Al Hydroxide/Mg Hydroxide (Magnesium Hydrox/Alum Hydrox 30 Ml Oral.Susp) 20 ml PO Q4H PRN PRN Reason: Dyspepsia Albuterol Sulfate (Albuterol Sulfate 90 Mcg 8 Gm Inhaler) 2 puff INHALE BID [facility] Last Admin: 04/17/24 08:24 Dose: Not Given Documented By: JOCELYNN Non-Admin Reason: pharm called, no med Albuterol Sulfate (Albuterol Sulfate 90 Mcg 8 Gm Inhaler) 2 puff INHALE Q4H PRN PRN Reason: Shortness of Breath Amiodarone HCl (Amiodarone Hcl 200 Mg Tablet) 200 mg PO DAILY [facility] Last Admin: 04/17/24 07:22 Dose: 200 mg Documented By: VAIBHAV Artificial Tears (Artificial Tears 15 Ml Drops) 1 drop EYE-BOTH Q8H [facility] Last Admin: 04/17/24 15:32 Dose: Not Given Documented By: HARESH Non-Admin Reason: Patient Refused Aspirin (Aspirin Enteric Coated 81 Mg Tablet.) 81 mg PO DAILY [facility] Last Admin: 04/17/24 07:22 Dose: 81 mg Documented By: VAIBHAV Bicalutamide (Bicalutamide 50 Mg Tablet) 50 mg PO DAILY [facility] Last Admin: 04/17/24 07:21 Dose: 50 mg Documented By: VAIBHAV Bisacodyl (Bisacodyl 10 Mg Supp.Rect) 10 mg [place] DAILY PRN PRN Reason: Constipation Calcium Carbonate (Calcium Carbonate 750 Mg Tab.Chew) 750 mg PO Q4H PRN PRN Reason: Heartburn Carvedilol (Carvedilol 3.125 Mg Tablet) 3.125 mg PO BID [facility]; Protocol Last Admin: 04/17/24 07:22 Dose: 3.125 mg Documented By: VAIBHAV Divalproex Sodium (Divalproex Sodium Sprinkles 125 Mg Cap.) 875 mg PO DAILY [facility] Last Admin: 04/17/24 07:23 Dose: 875 mg Documented By: VAIBHAV Enoxaparin Sodium (Enoxaparin Sodium 40 Mg/0.4 Ml Syringe) 40 mg SUBCUT Q24H [facility] Last Admin: 04/17/24 13:17 Dose: 40 mg Documented By: KESHAWN Furosemide (Furosemide 40 Mg Tablet) 40 mg PO DAILY [facility]; Protocol Last Admin: 04/17/24 09:10 Dose: 40 mg Documented By: KESHAWN Guaifenesin (Guaifenesin 200 Mg/10 Ml 10 Ml Liquid) 10 ml PO Q6H PRN PRN Reason: Cough Piperacillin Sod/Tazobactam (Sod 3.375 gm/ Sodium Chloride) 50 mls @ 100 mls/hr IV Q6H [facility] Last Infusion: 04/17/24 13:46 Dose: Infused Documented By: KESHAWN Vancomycin HCl 1,500 mg/ (Sodium Chloride) 500 mls @ 333.333 mls/hr IV Q24H [facility] Last Infusion: 04/17/24 15:50 Dose: Infused Documented By: HARESH Lactulose (Lactulose 20 Gm/30 Ml Solution) 20 gm PO TID [facility] Last Admin: 04/17/24 14:05 Dose: 20 gm Documented By: VAIBHAV Levothyroxine Sodium (Levothyroxine Sodium 25 Mcg Tablet) 25 mcg PO DAILY@0600 [facility] Last Admin: 04/17/24 05:40 Dose: 25 mcg Documented By: YIN Lorazepam (Lorazepam 2 Mg/Ml Vial) 1 mg IM Q5M PRN PRN Reason: Seizure Activity Magnesium Hydroxide (Milk Of Magnesia 30 Ml Oral.Susp) 30 ml PO DAILY PRN PRN Reason: Constipation Melatonin (Melatonin 3 Mg Tablet) 6 mg PO BEDTIME PRN PRN Reason: Insomnia Last Admin: 04/15/24 22:11 Dose: 6 mg Documented By: ANTOINETTE-MURPE Naloxone HCl (Naloxone Hcl Nasal 4 Mg [place]) 4 mg NOSTRILALT Q3M PRN PRN Reason: Opioid Overdose Omeprazole (Omeprazole 20 Mg Capsule.Dr) 20 mg PO DAILY@629 [facility] Last Admin: 04/17/24 05:40 Dose: 20 mg Documented By: YIN Ondansetron HCl (Ondansetron Hcl 4 Mg/2 Ml Vial) 4 mg IVPUSH Q8H PRN PRN Reason: Nausea and Vomiting Oxycodone HCl (Oxycodone Hcl Immed Release 5 Mg Tablet) 2.5 mg PO TID [facility] Last Admin: 04/17/24 14:05 Dose: 2.5 mg Documented By: VAIBHAV Pharmacy Consult (Consult Rx Vancomycin Dosing) 1 each MISCELLANE DAILY PRN PRN Reason: Consult order Sacubitril/Valsartan (Sacubitril/Valsartan 1 Tab Tablet) 1 tab PO BID [facility]; Protocol Last Admin: 04/16/24 08:32 Dose: Not Given Documented By: TOSHA Non-Admin Reason: Physician Held Med Senna (Sennosides 8.6 Mg Tablet) 8.6 mg PO BID PRN PRN Reason: Constipation Sodium Biphosphate/Sodium Phosphate (Sodium Phosphate,[place]-Dibasic 133 Ml Enema) 118 ml [place] DAILY PRN PRN Reason: Constipation Sodium Chloride (0.9 % Sodium Chloride Flush 3 Ml Syringe) 3 ml IVFLUSH QSHIFT [facility] Last Admin: 04/17/24 15:31 Dose: 3 ml Documented By: JERUSIA Labs 04/15/24 11:58 04/17/24 05:07 Labs: Laboratory Results - last 24 hr 04/17/24 04/17/24 05:07 12:40 Hold Purple Top SEE NOTE Anion Gap 11 L Estim Creat Clear Calc 84.9 Estimated GFR > 60 Random Glucose 83 Calcium 8.4 Random Vancomycin 9.1 L Microbiology Microbiology Results: Microbiology 04/15/24 12:28 Blood Culture - Preliminary Blood - Venous No growth after 48 hours. 04/15/24 11:58 Blood Culture - Preliminary Blood - Venous No growth after 48 hours. Assessment and Plan (1) Cellulitis of leg, right: Status: Acute Plan This is a 78-year-old male with a PMH significant for?COPD, HFrEF w/LVEF 10-15%, CAD, dysphagia, epilepsy, prostate cancer, HTN, unspecified dementia, schizophrenia, and tardive dyskenisia who presents to the ED from [facility] for evaluation of right lower extremity cellulitis in need of IV antibiotics. Pt will be admitted to the hospital for treatment and further evaluation of right lower extremity cellulitis that failed outpatient therapy. Right leg erythema due to cellulitis due to possible underlying PVD CT with no abscess continue vanc and Zosyn, started 04/15/2024 vascular surgery consult -rec US- ->negative for DVT Wound care consult: Cleanse with Ns, pat dry. Apply lotion to leg and cover open wounds with xeroform and dry gauze, wrap. change daily blood cultures negative to date soft bp due to medication not due to severe sepsis COPD Not in acute exacerbation Continue home inhalers HFrEF EF 10-15% Not in acute exacerbation, clinically euvolemic Continue home Lasix, Entresto, carvedilol - initially held for soft bp, resumed low EF so likely to have bp on the lower side h/o ventricular arrhythmia, unspecified suppressed with amiodorone Seizure disorder Continue divalproex, Ativan p.r.n. chronic dysphagia continue NDD2 diet, aspiration precautions CAD Continue aspirin Hypothyroidism Levothyroxine GERD PPI Full Code DVT Prophylaxis: Lovenox requires ongoing inpatient stay for management of right lower extremity cellulitis that failed outpatient therapy requiring IV abx Quality Stroke Does the patient have a stroke diagnosis?: No VTE Prior VTE?: No VTE Risk Level:: Medical - moderate - high VTE Device Contraindication: Treatment Not Indicated VTE Drug Contraindication: N/A - Med Ordered
[2024-04-17 20:41] VITALS: BP 118/64; PULSE 59; RESP 18; TEMP 36.6; O2SAT 94
[2024-04-17] MEDS: Sacubitril/Valsartan 24/26 1 TAB TABLET PO (20:49)
[2024-04-18] MEDS: 0.9 % Sodium Chloride Flush 3 ML SYRINGE IVFLUSH ×3 (00:17→19:42)
[2024-04-18] MEDS: Artificial Tears 15 ML DROPS 1 DROP EYE-BOTH ×4 (00:18→19:41)
[2024-04-18] MEDS: Piperacillin Sodium/Tazobactam 3.375 GM in 0.9 % Sodium Chloride 50 ML IV ×4 (01:24→18:15)
[2024-04-18 05:51] VITALS: BP 119/68; PULSE 54; RESP 15; TEMP 36; O2SAT 94
[2024-04-18] MEDS: Levothyroxine Sodium 25 MCG TABLET PO (06:16)
[2024-04-18] MEDS: Omeprazole 20 MG CAPSULE.DR PO (06:16)
[2024-04-18 06:39] LABS: Creatinine Clr Calc Pharmacy 86.2; Estimated Glomerular Filt Rate > 60
[2024-04-18 08:21] VITALS: BP 139/78; PULSE 56; RESP 17; TEMP 36.9; O2SAT 92
[2024-04-18] MEDS: Amiodarone HCL 200 MG TABLET PO (09:23)
[2024-04-18] MEDS: Sacubitril/Valsartan 24/26 1 TAB TABLET PO ×2 (09:23→19:40)
[2024-04-18] MEDS: Furosemide 40 MG TABLET PO (09:24)
[2024-04-18] MEDS: Aspirin Enteric Coated 81 MG TABLET.DR PO (09:24)
[2024-04-18] MEDS: carvediloL 3.125 MG TABLET PO ×2 (09:24→19:41)
[2024-04-18] MEDS: Bicalutamide 50 MG TABLET PO (09:25)
[2024-04-18] MEDS: Lactulose 20 GM/30 ML SOLUTION PO ×3 (09:26→19:39)
--- NOTE | 2024-04-18 09:32 | HO.PM.IMPN ---
Subjective Subjective Date of Service: 04/18/24 Interval History: seen and examined this morning follow up for RLE cellulitis no overnight events Review of Systems Review of Systems: Yes all other systems are reviewed and are negative Constitutional Constitutional: Denies fever(s) Cardiovascular Cardiovascular: Denies chest pain Gastrointestinal Gastrointestinal: Denies abdominal pain Physical Exam Vital Signs: Vital Signs: Last Vital Signs Temp 98.5 F 04/18/24 08:21 Pulse 56 04/18/24 08:21 Resp 17 04/18/24 08:21 BP 139/78 04/18/24 08:21 Pulse Ox 92 04/18/24 08:21 O2 Del Method Room Air 04/18/24 08:21 BMI result Body Mass Index 26.4 Objective Data Active Medications Acetaminophen (Acetaminophen 325 Mg Tablet) 650 mg PO Q6H PRN PRN Reason: Pain, Mild 1-3,fever,headache Al Hydroxide/Mg Hydroxide (Magnesium Hydrox/Alum Hydrox 30 Ml Oral.Susp) 20 ml PO Q4H PRN PRN Reason: Dyspepsia Albuterol Sulfate (Albuterol Sulfate 90 Mcg 8 Gm Inhaler) 2 puff INHALE BID [facility] Last Admin: 04/18/24 09:10 Dose: Not Given Documented By: JOCELYNN Non-Admin Reason: Patient Asleep Albuterol Sulfate (Albuterol Sulfate 90 Mcg 8 Gm Inhaler) 2 puff INHALE Q4H PRN PRN Reason: Shortness of Breath Amiodarone HCl (Amiodarone Hcl 200 Mg Tablet) 200 mg PO DAILY [facility] Last Admin: 04/18/24 09:23 Dose: 200 mg Documented By: KE Artificial Tears (Artificial Tears 15 Ml Drops) 1 drop EYE-BOTH Q8H [facility] Last Admin: 04/18/24 00:18 Dose: 1 drop Documented By: JUANITO Aspirin (Aspirin Enteric Coated 81 Mg Tablet.) 81 mg PO DAILY [facility] Last Admin: 04/18/24 09:24 Dose: 81 mg Documented By: KE Bicalutamide (Bicalutamide 50 Mg Tablet) 50 mg PO DAILY [facility] Last Admin: 04/18/24 09:25 Dose: 50 mg Documented By: KE Bisacodyl (Bisacodyl 10 Mg Supp.Rect) 10 mg DC DAILY PRN PRN Reason: Constipation Calcium Carbonate (Calcium Carbonate 750 Mg Tab.Chew) 750 mg PO Q4H PRN PRN Reason: Heartburn Carvedilol (Carvedilol 3.125 Mg Tablet) 3.125 mg PO BID [facility]; Protocol Last Admin: 04/18/24 09:24 Dose: 3.125 mg Documented By: KE Divalproex Sodium (Divalproex Sodium Sprinkles 125 Mg ) 875 mg PO DAILY [facility] Last Admin: 04/17/24 07:23 Dose: 875 mg Documented By: VAIBHAV Enoxaparin Sodium (Enoxaparin Sodium 40 Mg/0.4 Ml Syringe) 40 mg SUBCUT Q24H [facility] Last Admin: 04/17/24 13:17 Dose: 40 mg Documented By: KESHAWN Furosemide (Furosemide 40 Mg Tablet) 40 mg PO DAILY [facility]; Protocol Last Admin: 04/18/24 09:24 Dose: 40 mg Documented By: KE Guaifenesin (Guaifenesin 200 Mg/10 Ml 10 Ml Liquid) 10 ml PO Q6H PRN PRN Reason: Cough Piperacillin Sod/Tazobactam (Sod 3.375 gm/ Sodium Chloride) 50 mls @ 100 mls/hr IV Q6H [facility] Last Infusion: 04/18/24 07:06 Dose: Infused Documented By: KE Vancomycin HCl 1,500 mg/ (Sodium Chloride) 500 mls @ 333.333 mls/hr IV Q24H [facility] Last Infusion: 04/17/24 15:50 Dose: Infused Documented By: HARESH Lactulose (Lactulose 20 Gm/30 Ml Solution) 20 gm PO TID [facility] Last Admin: 04/18/24 09:26 Dose: 20 gm Documented By: KE Levothyroxine Sodium (Levothyroxine Sodium 25 Mcg Tablet) 25 mcg PO DAILY@0600 [facility] Last Admin: 04/18/24 06:16 Dose: 25 mcg Documented By: JUANITO Lorazepam (Lorazepam 2 Mg/Ml Vial) 1 mg IM Q5M PRN PRN Reason: Seizure Activity Magnesium Hydroxide (Milk Of Magnesia 30 Ml Oral.Susp) 30 ml PO DAILY PRN PRN Reason: Constipation Melatonin (Melatonin 3 Mg Tablet) 6 mg PO BEDTIME PRN PRN Reason: Insomnia Last Admin: 04/15/24 22:11 Dose: 6 mg Documented By: VALERIA Naloxone HCl (Naloxone Hcl Nasal 4 Mg [place]) 4 mg NOSTRILALT Q3M PRN PRN Reason: Opioid Overdose Omeprazole (Omeprazole 20 Mg Capsule.Dr) 20 mg PO DAILY@0630 [facility] Last Admin: 04/18/24 06:16 Dose: 20 mg Documented By: JUANITO Ondansetron HCl (Ondansetron Hcl 4 Mg/2 Ml Vial) 4 mg IVPUSH Q8H PRN PRN Reason: Nausea and Vomiting Oxycodone HCl (Oxycodone Hcl Immed Release 5 Mg Tablet) 2.5 mg PO TID [facility] Last Admin: 04/18/24 09:22 Dose: Not Given Documented By: KE Non-Admin Reason: Patient Refused Pharmacy Consult (Consult Rx Vancomycin Dosing) 1 each MISCELLANE DAILY PRN PRN Reason: Consult order Sacubitril/Valsartan (Sacubitril/Valsartan 1 Tab Tablet) 1 tab PO BID [facility]; Protocol Last Admin: 04/18/24 09:23 Dose: 1 tab Documented By: KE Senna (Sennosides 8.6 Mg Tablet) 8.6 mg PO BID PRN PRN Reason: Constipation Sodium Biphosphate/Sodium Phosphate (Sodium Phosphate,Mccreary-Dibasic 133 Ml Enema) 118 ml DC DAILY PRN PRN Reason: Constipation Sodium Chloride (0.9 % Sodium Chloride Flush 3 Ml Syringe) 3 ml IVFLUSH QSHIFT [facility] Last Admin: 04/18/24 00:17 Dose: 3 ml Documented By: JUANITO Labs 04/15/24 11:58 04/18/24 05:54 Labs: Laboratory Results - last 24 hr 04/17/24 04/18/24 12:40 05:54 Estim Creat Clear Calc 86.2 Estimated GFR > 60 Random Vancomycin 9.1 L Microbiology Microbiology Results: Microbiology 04/15/24 12:28 Blood Culture - Preliminary Blood - Venous No growth after 48 hours. 04/15/24 11:58 Blood Culture - Preliminary Blood - Venous No growth after 48 hours. Assessment and Plan (1) Cellulitis of leg, right: Status: Acute Plan This is a 78-year-old male with a PMH significant for?COPD, HFrEF w/LVEF 10-15%, CAD, dysphagia, epilepsy, prostate cancer, HTN, unspecified dementia, schizophrenia, and tardive dyskenisia who presents to the ED from [facility] for evaluation of right lower extremity cellulitis in need of IV antibiotics. Pt will be admitted to the hospital for treatment and further evaluation of right lower extremity cellulitis that failed outpatient therapy. Right leg erythema due to cellulitis due to possible underlying PVD CT with no abscess continue vanc and Zosyn, started 04/15/2024 vascular surgery consult -rec US- ->negative for DVT Wound care consult: Cleanse with Ns, pat dry. Apply lotion to leg and cover open wounds with xeroform and dry gauze, wrap. change daily blood cultures negative to date soft bp due to medication not due to severe sepsis COPD Not in acute exacerbation Continue home inhalers HFrEF EF 10-15% Not in acute exacerbation, clinically euvolemic Continue home Lasix, Entresto, carvedilol - initially held for soft bp, resumed low EF so likely to have bp on the lower side h/o ventricular arrhythmia, unspecified suppressed with amiodorone Seizure disorder Continue divalproex, Ativan p.r.n. chronic dysphagia continue NDD2 diet, aspiration precautions CAD Continue aspirin Hypothyroidism Levothyroxine GERD PPI Full Code DVT Prophylaxis: Lovenox requires ongoing inpatient stay for management of right lower extremity cellulitis that failed outpatient therapy requiring IV abx Quality Stroke Does the patient have a stroke diagnosis?: No VTE Prior VTE?: No VTE Risk Level:: Medical - moderate - high VTE Device Contraindication: Treatment Not Indicated VTE Drug Contraindication: N/A - Med Ordered
[2024-04-18] MEDS: Divalproex Sodium Sprinkles 125 MG CAP.DR.SPR 875 MG PO (09:42)
[2024-04-18 12:58] LABS: Vancomycin Random 10.4 mcg/mL (15-20)
[2024-04-18 13:56] VITALS: BP 102/59; PULSE 61; RESP 17; TEMP 36.3; O2SAT 97
[2024-04-18] MEDS: Enoxaparin Sodium 40 MG/0.4 ML SYRINGE SUBCUT (15:03)
[2024-04-18] MEDS: vancomycin HCL 1,500 MG in 0.9 % Sodium Chloride 500 ML 333.33 MG IV (15:04)
[2024-04-18] MEDS: oxyCODONE HCl Immed Release 5 MG TABLET 2.5 MG PO ×2 (15:04→19:39)
[2024-04-18 19:40] VITALS: BP 112/61
[2024-04-18 19:41] VITALS: BP 112/61; PULSE 61
[2024-04-18 21:14] VITALS: BP 109/62; PULSE 56; RESP 16; TEMP 36.2; O2SAT 96
[2024-04-19] MEDS: Piperacillin Sodium/Tazobactam 3.375 GM in 0.9 % Sodium Chloride 50 ML IV ×3 (00:56→14:01)
[2024-04-19] MEDS: Levothyroxine Sodium 25 MCG TABLET PO (05:26)
[2024-04-19] MEDS: Omeprazole 20 MG CAPSULE.DR PO (05:26)
[2024-04-19 05:37] VITALS: BP 100/57; PULSE 56; RESP 17; TEMP 36; O2SAT 94
--- NOTE | 2024-04-19 07:11 | P.DS_ITS ---
DS: Providers Provider Date of Service: 04/19/24 Date of admission: 04/15/24 13:42 Date of discharge: 04/19/24 Primary care physician: Unknown Physician Consults: 04/15/24 14:19 Consult to Wound Care Routine Reason for consultation: Right lower leg abrasions w/cellulitis 04/16/24 16:13 Consult to Vascular Surgery Routine Consulting Provider: [facility] Reason for consultation: RLE wound; PVD Has provider been notified: No DS: Diagnosis Discharge Diagnosis (1) Cellulitis of leg, right: Status: Acute DS: Summary Hospital Course Hospital Course: History and physical as per admitting provider. Pt is a 78-year-old male with a PMH significant for?COPD, HFrEF w/LVEF 10-15%, CAD, dysphagia, epilepsy, prostate cancer, HTN, unspecified dementia, schizophrenia, and tardive dyskenisia who presents to the ED from [facility] for evaluation of right lower extremity cellulitis in need of IV antibiotics. Pt was started on Keflex 250 mg q.i.d. on Saturday with apparetnly little to no improvement. Called SNF for more information about progression of patient's symptoms, but was unable to find out more information. Pt was seen and evaluated by facilities physician and sent to the ED for further evaluation. Pt himself is primarily nonverbal and unable to provide additional meaningful HPI. Pt does complain of pain in his lower extremity, particularly around the ankle. In the ED pt with elevated temp of 99.3 degrees, vitals otherwise stable. Labs were grossly unremarkable and around baseline for pt. No leukocytosis. Stable normocytic anemia. No significant electrolyte abnormalities. Renal function WNL. Lactic acid WNL. Pt was treated with with Ancef. Pt will be admitted to the hospital for treatment and further evaluation of right lower extremity cellulitis that failed outpatient therapy. Right leg erythema due to cellulitis due to possible underlying PVD . Improving. CT with no abscess. Treated with vancomycin and Zosyn, started 04/15/2024, changed to doxycycline and augmentin for 5 more days. vascular surgery consult - rec US- ->negative for DVT. blood cultures negative to date. soft bp due to medication not due to severe sepsis. COPD. Not in acute exacerbation. Continue home inhalers HFrEF EF 10-15%. Not in acute exacerbation, clinically euvolemic. Continue home Lasix, Entresto, carvedilol - initially held for soft bp, resumed. low EF so likely to have bp on the lower side h/o ventricular arrhythmia, unspecified suppressed with amiodorone Seizure disorder Continue divalproex, Ativan p.r.n. chronic dysphagia continue NDD2 diet, aspiration precautions CAD Continue aspirin Hypothyroidism Levothyroxine GERD PPI Wound care Recommendations: 1. Turn and Reposition every 2 hours and as needed for patient comfort.? Use pillows or wedges to support off loading positions. 2. Off Load all bony prominences with use of pillows and heel boots if needed.? Apply Preventative foams where needed. ? 3. Monitor for incontinence and moisture control, use barrier creams when needed for prevention and treatment. 4. Provide adequate and supplemental nutrition.? 5. Order llow air loss mattress. 6. When applicable maintain blood glucose levels per Providers order. 7. Right Lower Leg - Elevate on pillows. Cleanse with Ns, pat dry. Apply lotion to leg and cover open wounds with xeroform and dry gauze, wrap. change daily. Re-consult wound care Nurse for wound deterioration or wound changes. Time Attestation Discharge Coordination Time (in mins): 40 Quality: Safe Use of Opioids Does Pt have an Active Cancer Diagnosis on the Problem List?: No Quality: Stroke Does the patient have a stroke diagnosis?: No Physical Exam Vital Signs: Vital Signs: Last Vital Signs Temp 96.8 F 04/19/24 05:37 Pulse 56 04/19/24 05:37 Resp 17 04/19/24 05:37 BP 100/57 L 04/19/24 05:37 Pulse Ox 94 04/19/24 05:37 O2 Del Method Room Air 04/19/24 05:37 BMI result Body Mass Index 26.4 Appearing in no acute distress head is normocephalic atraumatic eyes pupils are PERRLA sclera is anicteric mouth throat mucous membranes are intact and moist neck is supple no lymphadenopathy, no JVD noted lung sounds are clear to auscultation heart regular rate rhythm, clear S1, S2 positive bowel sounds, abdomen is soft, nontender neuro patient is alert, confused Bilateral LE dryness DS: Data Data Completed and Pending Completed studies during hospitalization [Text1]: Procedures Assistance with Respiratory Ventilation, Less than 24 Consecutive Hours, Continuous Positive Airway Pressure (01/22/23) Insertion of Infusion Device into Lower Vein, Percutaneous Approach (09/04/22) Insertion of Infusion Device into Right Atrium, Percutaneous Approach (08/23/22) Insertion of Infusion Device into Superior Vena Cava, Percutaneous Approach (08/08/22) Introduction of Vasopressor into Central Vein, Percutaneous Approach (09/04/22) Synagogue of Cardiac Rhythm, Single (08/08/22) Ultrasonography of Superior Vena Cava, Guidance (08/23/22) Labs on day of discharge: Laboratory Results - last 24 hr 04/18/24 11:44 Random Vancomycin 10.4 L Preliminary micro results at discharge 04/15/24 12:28 Blood Culture - Preliminary Blood - Venous No growth after 48 hours. 04/15/24 11:58 Blood Culture - Preliminary Blood - Venous No growth after 48 hours. Discharge Plan Discharge Anticipated Discharge Date/Time: 04/19/24 07:10 Patient Disposition: [facility] Discharge Diagnosis: Right lower extremity cellulitis Underlying peripheral vascular disease Discharge Medications: New doxycycline hyclate 100 mg tablet 100 mg PO BID Qty: 10 0RF amoxicillin-pot clavulanate 875-125 mg tablet 1 tab PO BID Qty: 10 0RF Continued acetaminophen 325 mg Capsule 650 mg PO Q6H MDD 3g/day PRN (Reason: Pain) bicalutamide 50 mg Tablet 50 mg PO DAILY lorazepam [Ativan] 2 mg/mL Solution 1 mg IM Q5M PRN (Reason: Seizure Activity) Rx Instructions: may repeat Q 5 minutes x 3 omeprazole 20 mg Capsule,Delayed Release(Dr/Ec) 20 mg PO DAILY@0630 furosemide [Lasix] 20 mg Tablet 40 mg PO DAILY guaifenesin 100 mg/5 mL Liquid 200 mg PO Q6H PRN (Reason: Cough) Fleet Enema 19-7 gram/118 mL Enema 118 ml FL DAILY PRN (Reason: Constipation) amiodarone 200 mg tablet 200 mg PO DAILY cephalexin 250 mg Capsule 250 mg PO QID Rx Instructions: for 7 days, started 04/13/24- 04/19/24 polyvinyl alcohol [Artificial Tears (polyvin alc)] 1.4 % Drops 1 drp OPHTHALMIC (EYE) Q8H levothyroxine 25 mcg Tablet 25 mcg PO DAILY@0600 alum-mag hydroxide-simeth 200-200-20 mg/5 mL Suspension 20 ml PO Q4H MDD 120 PRN (Reason: Dyspepsia) Rx Instructions: administer between meals and at bedtime levalbuterol tartrate 45 mcg/actuation Hfa Aerosol Inhaler 2 inh INHALATION Q4H PRN (Reason: sob) doxycycline hyclate 50 mg Tablet 50 mg PO DAILY naloxone [Narcan] 4 mg/actuation [place],Non-Aerosol 4 mg INTRANASAL Q3M PRN (Reason: Opioid Overdose) Rx Instructions: spray 1 dose into ONE nostril; alternate nostrils w each dose until help arrives sennosides [senna] 8.6 mg Tablet 8.6 mg PO BID PRN (Reason: Constipation) aspirin 81 mg Tablet,Delayed Release (Dr/Ec) 81 mg PO DAILY bisacodyl 10 mg Suppository 10 mg FL DAILY PRN (Reason: Constipation) levalbuterol tartrate 45 mcg/actuation HFA aerosol inhaler 2 puff inhalation BID divalproex 125 mg capsule, delayed rel sprinkle 875 mg PO DAILY carvedilol 3.125 mg Tablet 3.125 mg PO BID Qty: 0 0RF Protocol: Hold for SBP/HR < HOLD for SBP < : 90 HOLD for HR < : 60 oxycodone 5 mg tablet 2.5 mg PO TID lactulose 10 gram/15 mL solution 30 ml PO TID sacubitril-valsartan [Entresto] 24-26 mg Tablet 1 tab PO BID Qty: 60 0RF Protocol: Hold for SBP< HOLD for SBP < : 90 Discharge Orders: Discharge Order (Routine); Ordered 04/19/24 Ordered By: Gifty Lopez Diet: Advance to usual diet Activity on Discharge: As tolerated Stand Alone Forms: Patient Portal Discharge page Print Language: Indonesian Activity Restrictions/Additional Instructions: Recommendations: 1. Turn and Reposition every 2 hours and as needed for patient comfort.? Use pillows or wedges to support off loading positions. 2. Off Load all bony prominences with use of pillows and heel boots if needed.? Apply Preventative foams where needed. ? 3. Monitor for incontinence and moisture control, use barrier creams when needed for prevention and treatment. 4. Provide adequate and supplemental nutrition.? 5. Order low air loss mattress. 6. When applicable maintain blood glucose levels per Providers order. 7. Right Lower Leg - Elevate on pillows. Cleanse with Ns, pat dry. Apply lotion to leg and cover open wounds with xeroform and dry gauze, wrap. change daily. Care Plan Goals: Complete antibiotic course Health Concerns: Right lower extremity cellulitis Underlying peripheral vascular disease Plan of Treatment: Take all medications as prescribed Assessment: See discharge summary
[2024-04-19 07:21] LABS: Creatinine Clr Calc Pharmacy 82.4; Estimated Glomerular Filt Rate > 60
[2024-04-19 08:45] VITALS: BP 120/59; PULSE 53; RESP 18; TEMP 36.3; O2SAT 98
--- NOTE | 2024-04-19 09:47 | MHC.CM.PN ---
Addendum entered by Alejandra Nava 04/19/24 14:33: CM SPOKE TO THE DONDARRELL, SHE IS AWARE TRANSPORT WAS BOOKED FOR 1430 HOURS DCS SECURELY EMAILED TO HER AT [email or web address], VALARIE VALDEZ [phone] NOTIFIED VIA T/C SECOND IMM FAXED TO HER AT [phone] Original Note: PT CLEARED TO RETURN TO [facility] TODAY CM UPDATED REFERRAL IN [facility], HOWEVER THERE WAS NO RESPONSE CM CALLED THE SNF AND SPOKE TO RN, CHAS, WHO INDICATED SHE WOULD CONTACT THE DON AND HAVE HER RESPOND
[2024-04-19] MEDS: 0.9 % Sodium Chloride Flush 3 ML SYRINGE IVFLUSH (09:53)
[2024-04-19] MEDS: Artificial Tears 15 ML DROPS 1 DROP EYE-BOTH (09:53)
[2024-04-19] MEDS: Sacubitril/Valsartan 24/26 1 TAB TABLET PO (09:54)
[2024-04-19] MEDS: Furosemide 40 MG TABLET PO (09:54)
[2024-04-19] MEDS: Bicalutamide 50 MG TABLET PO (09:54)
[2024-04-19] MEDS: Amiodarone HCL 200 MG TABLET PO (09:54)
[2024-04-19] MEDS: Lactulose 20 GM/30 ML SOLUTION PO (09:54)
[2024-04-19] MEDS: oxyCODONE HCl Immed Release 5 MG TABLET 2.5 MG PO (09:54)
[2024-04-19] MEDS: Aspirin Enteric Coated 81 MG TABLET.DR PO (09:56)
[2024-04-19] MEDS: carvediloL 3.125 MG TABLET PO (09:56)
[2024-04-19] MEDS: Divalproex Sodium Sprinkles 125 MG CAP.DR.SPR 875 MG PO (09:56)
[2024-04-19 12:55] LABS: Vancomycin Random 12.7 mcg/mL (15-20)
[2024-04-19 13:44] LABS: CDiff Gene PCR NEGATIVE (Negative)
[2024-04-19 14:00] VITALS: BP 100/60; PULSE 83; RESP 16; TEMP 36.1; O2SAT 95
[2024-04-20 12:34] LABS: Adenovirus F 40/41 Not Detected (Not Detect.); Astrovirus Not Detected (Not Detect.); Campylobacter Not Detected (Not Detect.); Cryptosporidium Not Detected (Not Detect.); Cyclospora cayetanensis Not Detected (Not Detect.); E. coli EAEC Not Detected (Not Detect.); E. coli EPEC Not Detected (Not Detect.); E. coli ETEC Not Detected (Not Detect.); E. coli STEC Not Detected (Not Detect.); Entamoeba histolytica Not Detected (Not Detect.); Giardia lamblia Not Detected (Not Detect.); Norovirus GI/GII Not Detected (Not Detect.); Plesiomonas shigelloides Not Detected (Not Detect.); Rotavirus A Not Detected (Not Detect.); Salmonella Not Detected (Not Detect.); Sapovirus Not Detected (Not Detect.); Shigella sp./EIEC Not Detected (Not Detect.); Vibrio Not Detected (Not Detect.); Vibrio Cholerae Not Detected (Not Detect.); Yersinia enterocolitica Not Detected (Not Detect.)
== END 2024-04-19 14:42 | disposition skilled nursing facility (03) | DRG 603 ==
LOC: HO.ED 12:58 → HO.EDOVER 13:55 → HO.S3 04-16 11:45
PROVIDERS: Admitting Provider Student in an Organized Health Care Education/Training Program; Emergency Provider Emergency Medicine; Visit Provider Nurse Practitioner Acute Care
DX: L03.115 Cellulitis of right lower limb (principal); I50.22 Chronic systolic (congestive) heart failure; D64.9 Anemia, unspecified; R13.10 Dysphagia, unspecified; I73.9 Peripheral vascular disease, unspecified; F20.9 Schizophrenia, unspecified; I25.2 Old myocardial infarction; G40.909 Epilepsy, unspecified, not intractable, without status epilepticus; E03.9 Hypothyroidism, unspecified; I25.10 Atherosclerotic heart disease of native coronary artery without angina pectoris; I11.0 Hypertensive heart disease with heart failure; Z85.46 Personal history of malignant neoplasm of prostate; Z79.82 Long term (current) use of aspirin; Z79.899 Other long term (current) drug therapy
CPT/HCPCS: 36415; 73701; 80048; 80202; 82565; 83605; 85025; 87040; 87493; 87507; 93971; 94640; 99285; J0690; J1650; J2543; J3370; J3371; J7120; Q9967

== ENCOUNTER 2024-04-15 13:42 | Outpatient (BNV) | payer MEDICARE, MEDICAID, SELFPAY | END 2024-04-17 09:57 | PROVIDERS: Admitting Provider Student in an Organized Health Care Education/Training Program; Emergency Provider Emergency Medicine; Visit Provider Radiology Diagnostic Radiology | DX: R22.41 Localized swelling, mass and lump, right lower limb (principal); L53.9 Erythematous condition, unspecified; L03.115 Cellulitis of right lower limb | CPT/HCPCS: 93971 ==

== ENCOUNTER 2024-04-15 13:42 | Outpatient (BNV) | payer MEDICARE, MEDICAID, SELFPAY | END 2024-04-15 14:25 | PROVIDERS: Admitting Provider Student in an Organized Health Care Education/Training Program; Emergency Provider Emergency Medicine; Visit Provider Radiology Diagnostic Radiology | DX: L03.116 Cellulitis of left lower limb (principal) | CPT/HCPCS: 73701 ==

== ENCOUNTER → 2024-04-15 13:42 | Outpatient (BNV) | payer MEDICARE, MEDICAID, SELFPAY | PROVIDERS: Admitting Provider Student in an Organized Health Care Education/Training Program; Emergency Provider Emergency Medicine; Visit Provider Student in an Organized Health Care Education/Training Program | DX: L03.115 Cellulitis of right lower limb (principal) | CPT/HCPCS: 99223; 99232 ==

== ENCOUNTER → 2024-04-15 13:42 | Outpatient (BNV) | payer MEDICARE, MEDICAID, SELFPAY | PROVIDERS: Admitting Provider Student in an Organized Health Care Education/Training Program; Emergency Provider Emergency Medicine; Visit Provider Physician Assistant Surgical | DX: L03.115 Cellulitis of right lower limb (principal) | CPT/HCPCS: 99222 ==

== ENCOUNTER 2024-07-09 20:51 | Inpatient (IN) | payer MEDICARE, MEDICAID, SELFPAY ==
--- NOTE | 2024-07-09 | ECG_ITS ---
Test Reason : WEAKNESS Blood Pressure : */* mmHG Vent. Rate : 69 BPM Atrial Rate : 69 BPM P-R Int : 162 ms QRS Dur : 128 ms QT Int : 446 ms P-R-T Axes : 78 67 247 degrees QTcB Int : 477 ms Normal sinus rhythm Right bundle branch block T wave abnormality, consider inferolateral ischemia Abnormal ECG When compared with ECG of 11-Dec-2023 04:11, Questionable change in QRS axis Inverted T waves have replaced nonspecific T wave abnormality in Inferior leads Referred By: Generic ED Physician Electronically Signed By: Robe Pacheco
--- NOTE | ~2024-07-09 | CT_ITS ---
CLINICAL HISTORY: head strike CT head without contrast Comparison: CT/REG/MD/SR - CT HEAD/BRAIN WO CON - 11/10/21 13:36 EDT Findings: Scattered subcortical and periventricular hypoattenuation, likely in keeping with chronic small vessel ischemic disease. Parenchymal volume loss with compensatory prominence of the ventricles and CSF spaces. No acute territorial infarction, intracranial hemorrhage, midline shift or hydrocephalus. The visualized paranasal sinuses and mastoid air cells are normal. The orbits are unremarkable. Mild right posterior scalp edema. No skull fracture. IMPRESSION: 1. No acute intracranial abnormality. 2. Additional findings as described. This document has been electronically signed by: Larry Zavaleta MD on 07/11/2024 21:44:31
--- NOTE | ~2024-07-09 | XR_ITS ---
CLINICAL HISTORY: cough, fever 1 view chest x-ray Comparison: CR/SR - XR CHEST 1V - 12/11/23 04:59 EDT Findings: Ill-defined opacity at the left lung base. Left costophrenic angle not included on this study. There is some mild hazy right base opacity. No pneumothorax. Heart size is normal. No acute fracture. IMPRESSION: 1. Ill-defined left base opacity concerning for moderate-size pleural effusion. 2. Mild hazy right base opacity which could be infection, aspiration or atelectasis. This document has been electronically signed by: Bahman Wilson MD on 07/09/2024 22:13:46
--- NOTE | ~2024-07-09 | CT_ITS ---
EXAMINATION: CT CHEST WITHOUT CONTRAST CLINICAL INFORMATION: Effusion, pneumonia. COMPARISON: None available. TECHNIQUE: Multidetector volumetric CT imaging of the chest was done. Axial MIP volume rendering provided. Sagittal and coronal reformatted images were obtained. This CT examination was performed using dose optimization techniques as appropriate, variously including the following: *Automated exposure control *Adjustment of mA and/or kV according to patient size (this includes techniques or standardized protocols for targeted exams where dose is matched to indication/reason for exam; i.e. extremities or head) *Use of iterative reconstruction technique FINDINGS: Study is limited by moderate respiratory motion degradation. This limits the sensitivity of the exam. LUNGS: There is left lung volume loss secondary to atelectasis of the lingular segment, and patchy atelectasis of the left lower lobe. There is mild leftward mediastinal shift. There is patchy consolidation in the left lower lobe, and segmental consolidation of posterior right middle lobe. Findings are consistent with pneumonia. There is associated Groundglass attenuation in the right middle lobe and aerated lingula, findings also consistent with pneumonia. There are associated reticular changes of atelectasis in the left lower lobe. There are no effusions. There is no pneumothorax. Within the confines of motion, no suspicious pulmonary nodules or masses. MEDIASTINUM: Mildly nodular thyroid without dominant nodule. Aorta is ectatic, mildly uncoiled, and mildly tortuous, with mild to moderate atheromatous calcification. Main pulmonary artery is mildly prominent. Heart is borderline enlarged. No pericardial effusion. No abnormal lymph nodes present. There are small reactive appearing lymph nodes, and there is a prevascular calcified lymph node. Esophagus demonstrates a small type I hiatus hernia and is mildly patulous throughout its course. CORONARY ARTERY CALCIFICATION: Moderate three-vessel calcifications. AXILLA\CHEST WALL: No lymphadenopathy. Moderate male gynecomastia bilaterally. UPPER ABDOMEN: Mildly motion degraded. No liver abnormality. The gallbladder is distended but otherwise normal. Small hiatus hernia. No additional abnormalities. OSSEOUS STRUCTURES: No suspicious lytic or blastic bone lesions. Marked degenerative changes in the lower cervical region. CT/CT chest wo IV con IMPRESSION: Exam is moderately motion degraded. This limits sensitivity of the study. 1. Multifocal pneumonia, with segmental consolidations in the right middle lobe and left lower lobe. Associated groundglass and reticular opacities. 2. No effusions. Volume loss left lung from lingular atelectasis/consolidation. Mild leftward mediastinal shift. 3. Borderline cardiac enlargement. 4. Additional ancillary findings as discussed. Electronically signed by: Rodney Julian MD 07/10/2024 11:09 AM EDT
[2024-07-09 21:00] VITALS: BP 105/68; PULSE 80; O2SAT 96
[2024-07-09 21:03] VITALS: BP 121/60; PULSE 67; RESP 22; TEMP 38.2; O2SAT 97; BMI 28.3
--- NOTE | 2024-07-09 21:18 | ED.AMS ---
HPI - Altered Mental Status General Chief Complaint: Altered Mental Status Stated Complaint: sepsis alert, lethargic Time Seen by Provider: 07/09/24 21:09 Source: patient Mode of arrival: ambulatory Limitations: no limitations History of Present Illness ED Provider: Dr. Kirstin Wilson HPI narrative: Patient comes to the emergency room via ambulance from [facility]. Patient has history of dementia, unable to give good history. According to the staff, they report that the patient has had increased lethargy and cough. According to EMS, patient was found with an oxygen saturation of 84% on room air and placed on 2 L nasal cannula. EMS started an IV and given a bolus of 250 mL which concluded prior to arrival. Related Data Home Medications ?Medication ?Instructions ?Recorded ?Confirmed acetaminophen 325 mg capsule 650 mg PO Q6H PRN Fever Or Pain 01/19/20 07/10/24 bicalutamide 50 mg tablet 50 mg PO DAILY 01/19/20 07/10/24 furosemide 20 mg tablet (Lasix) 40 mg PO DAILY 01/19/20 07/10/24 omeprazole 20 mg capsule,delayed 20 mg PO DAILY@0630 01/19/20 07/10/24 release guaifenesin 100 mg/5 mL oral liquid 200 mg PO Q6H PRN Cough 12/21/21 07/10/24 sodium phosphates 19 gram-7 118 ml NH DAILY PRN Constipation 12/21/21 07/10/24 gram/118 mL enema (Fleet Enema) if bisacodyl supp ineffective aspirin 81 mg tablet,delayed 81 mg PO DAILY 08/08/22 07/10/24 release bisacodyl 10 mg rectal suppository 10 mg NH DAILY PRN Constipation if 08/08/22 07/10/24 senna ineffective divalproex 125 mg capsule,delayed 875 mg PO DAILY 08/08/22 07/10/24 release sprinkle levalbuterol tartrate 45 2 puff inhalation BID 08/08/22 07/10/24 mcg/actuation aerosol inhaler sennosides 8.6 mg tablet (senna) 8.6 mg PO DAILY PRN Constipation 08/08/22 07/10/24 amiodarone 200 mg tablet 200 mg PO DAILY 08/23/22 07/10/24 oxycodone 5 mg tablet 2.5 mg PO TID 12/22/22 07/10/24 lactulose 10 gram/15 mL oral 30 ml PO TID elevated ammonia 01/22/23 07/10/24 solution aluminum-mag hydroxide-simethicone 20 ml PO Q4H PRN Dyspepsia 04/15/24 07/10/24 200 mg-200 mg-20 mg/5 mL oral susp doxycycline hyclate 50 mg tablet 50 mg PO DAILY Prophylaxis 04/15/24 07/10/24 levalbuterol tartrate 45 2 inh inhalation Q4H PRN sob 04/15/24 07/10/24 mcg/actuation aerosol inhaler levothyroxine 25 mcg tablet 25 mcg PO DAILY@0600 04/15/24 07/10/24 naloxone 4 mg/actuation nasal 4 mg intranasal Q3M PRN Opioid 04/15/24 07/10/24 spray (Narcan) Overdose polyvinyl alcohol 1.4 % eye drops 1 drp ophthalmic (eye) Q8H PRN Dry 04/15/24 07/10/24 (Artificial Tears (polyvinyl Eyes alcohol)) ammonium lactate 12 % lotion 1 appl topical DAILY 07/10/24 07/10/24 ammonium lactate 12 % lotion 1 appl topical DAILY PRN skin 07/10/24 07/10/24 integrity ergocalciferol (vitamin D2) 1,250 1,250 mcg PO TH@0900 07/10/24 07/10/24 mcg (50,000 unit) capsule (Vitamin D2) glucagon HCl 1 mg solution for 1 mg subcut Q15M PRN severe 07/10/24 07/10/24 injection hypoglycemia sennosides 8.6 mg tablet (senna) 8.6 mg PO BID 07/10/24 07/10/24 Previous Rx's ?Medication ?Instructions ?Recorded carvedilol 3.125 mg tablet 3.125 mg PO BID #0 tabs 08/13/22 sacubitril 24 mg-valsartan 26 mg 1 tab PO BID #60 tabs 01/24/23 tablet (Entresto) amoxicillin 875 mg-potassium 1 tab PO BID #10 tabs 07/13/24 clavulanate 125 mg tablet Allergies Allergy/AdvReac Type Severity Reaction Status Date / Time tuberculin, purified protein Allergy Unknown UNKNOWN Verified 07/09/24 21:08 deriva (Tuberculin,Purif.Prot.Deriv.) Review of Systems Review of Systems: Yes Unobtainable due to mental status [facility] Past Medical History Medical History Hypertension CHF (congestive heart failure) Ischemic congestive cardiomyopathy Ventricular tachycardia Pneumonia due to Acinetobacter species Respiratory failure with hypoxia and hypercapnia Diabetes type 2, controlled Hypertension GERD (gastroesophageal reflux disease) Dementia Epilepsy Dysphagia Spinal stenosis Cervicalgia Muscle weakness (generalized) COPD (chronic obstructive pulmonary disease) Schizo affective schizophrenia Surgical History S/P TURP Family History Family History Mother Cancer Social History Social History Household Members: Unknown / Unable to assess Household Members Other:: Resides at [facility] Housing: Unknown / Unable to assess Housing Other:: [facility] Are you a primary rn urgent care to a significant other at home: No Do you presently have visiting nurse or other home services: No (Pt resides at [facility]) Unable to assess alcohol history related to: Unable to respond Alcohol intake: never Comment: near RN station Patient Tobacco Use Status: Never used Tobacco Second Hand Smoke Exposure: No Advance Directives Date on File: 08/14/22 service: No Current occupational status: disabled Physical Exam ED Vital Signs: Vital Signs - 24 hr 07/09/24 21:03 07/09/24 21:45 07/09/24 22:38 Temperature 100.8 F H Pulse Rate 67 74 64 Respiratory Rate 22 H 24 H 16 Blood Pressure 121/60 109/52 L 90/45 L Pulse Oximetry 97 96 90 L Oxygen Delivery Method Nasal Cannula Nasal Cannula Room Air Oxygen Flow Rate 2 07/09/24 23:24 07/10/24 01:42 Temperature 97.8 F 99.0 F Pulse Rate 65 86 Respiratory Rate 22 H 24 H Blood Pressure 99/49 L 140/70 H Pulse Oximetry 94 95 Oxygen Delivery Method Nasal Cannula Nasal Cannula Oxygen Flow Rate 2 2 BMI result Body Mass Index 28.3 Const Other: Appearance: Alert. Seems uncomfortable Eyes: Pupils equal, round and reactive to light. ENT: Pharynx normal. Neck: Normal inspection. Neck supple. No lymph nodes noted. No crepitus CVS: Normal heart rate and rhythm. Pulses normal. Normal S1 and S2 Respiratory: No respiratory distress. Occasional rales, no crackles, no wheezing Abdomen: Soft and nontender. No rigidity. No distention. Skin: Skin warm and dry. Normal skin color. Normal skin turgor. Extremities: No lower extremity edema. No Lacerations. No Rash Neuro: Moving all extremities, unable to participating cranial nerve assessment Psych: calm, cooperative Course Course Course Narrative: On arrival, patient noted to be very warm to touch. Rectal temperature 100.8 degrees, blood pressure 121/60, heart rate 67 It was noted in patient's chart that patient has history of congestive heart failure with an ejection fraction of 10-15%. Patient received a bolus of 200 mL, IV ceftriaxone and azithromycin. According to the staff patient has been coughing and has history of recurrent pneumonia. At this time, 21:20, sepsis is not suspected. Medications Administered Discontinued Medications Generic Name Dose Route Start Last Admin Trade Name Freq PRN Reason Stop Dose Admin Acetaminophen 975 mg 07/10/24 03:51 07/12/24 12:38 Acetaminophen 325 Mg Tablet PO 975 mg Q6H PRN Administration Pain, Mild 1-3,fever,headache Amiodarone HCl 200 mg 07/10/24 10:00 07/13/24 09:17 Amiodarone Hcl 200 Mg Tablet PO 200 mg DAILY DAVID Administration Aspirin 81 mg 07/11/24 09:00 07/13/24 09:17 Aspirin Enteric Coated 81 Mg Tablet. PO 81 mg DAILY DAVID Administration Bicalutamide 50 mg 07/11/24 09:00 07/13/24 09:18 Bicalutamide 50 Mg Tablet PO 50 mg DAILY DAVID Administration Calcium Carbonate 750 mg 07/10/24 03:51 07/12/24 05:48 Calcium Carbonate 750 Mg Tab.Chew PO 750 mg Q4H PRN Administration Heartburn Carvedilol 3.125 mg 07/10/24 21:00 07/13/24 09:18 Carvedilol 3.125 Mg Tablet PO 3.125 mg BID DAVID Administration Protocol Ceftriaxone Sodium 1 gm 07/09/24 21:15 07/09/24 21:32 Ceftriaxone Sodium 1 Gm Vial IVPUSH 07/09/24 21:16 1 gm ONCE ONE Administration Divalproex Sodium 875 mg 07/10/24 09:00 07/13/24 09:17 Divalproex Sodium Sprinkles 125 Mg Cap. PO 875 mg DAILY DAVID Administration Enoxaparin Sodium 40 mg 07/10/24 09:00 07/13/24 09:16 Enoxaparin Sodium 40 Mg/0.4 Ml Syringe SUBCUT 40 mg Q24H DAVID Administration Furosemide 40 mg 07/11/24 09:00 07/13/24 09:17 Furosemide 40 Mg Tablet PO 40 mg DAILY DAVID Administration Protocol Sodium Chloride 200 mls @ 999 mls/hr 07/09/24 21:15 07/09/24 21:44 Ns IVCONT 07/09/24 21:27 Infused .Q13M ONE Infusion Azithromycin 500 mg/ Sodium 250 mls @ 125 mls/hr 07/09/24 21:15 07/09/24 23:47 Chloride IV 07/09/24 23:14 Infused ONCE ONE Infusion Piperacillin Sod/Tazobactam 50 mls @ 100 mls/hr 07/10/24 05:00 07/13/24 09:53 Sod 3.375 gm/ Sodium Chloride IV Infused Q6H DAVID Infusion Vancomycin HCl 2,000 mg in 500 mls @ 250 mls/hr 07/10/24 04:15 07/10/24 06:45 Vancomycin/Ns IV 07/10/24 06:14 Infused ONCE ONE Infusion Vancomycin HCl 1,500 mg/ 500 mls @ 333.333 mls/hr 07/11/24 07:00 07/11/24 07:00 Sodium Chloride IV Not Given Q24H [facility] Vancomycin HCl 1,000 mg/ 270 mls @ 270 mls/hr 07/11/24 09:30 07/12/24 10:30 Sodium Chloride IV Infused Q12H DAVID Infusion Insulin Human Lispro 0 unit 07/10/24 05:00 07/13/24 11:38 Insulin Lispro 100 Unit/Ml 3 Ml Vial SUBCUT Not Given Q6H [facility] Protocol Lactulose 20 gm 07/10/24 15:00 07/13/24 09:18 Lactulose 20 Gm/30 Ml Solution PO 20 gm TID DAVID Administration Levothyroxine Sodium 25 mcg 07/11/24 06:00 07/13/24 05:23 Levothyroxine Sodium 25 Mcg Tablet PO 25 mcg DAILY@0600 DAVID Administration Loperamide HCl 2 mg 07/11/24 15:54 07/11/24 16:47 Loperamide Hcl 2 Mg Capsule PO 2 mg Q4H PRN Administration Diarrhea Melatonin 6 mg 07/10/24 03:51 07/12/24 20:50 Melatonin 3 Mg Tablet PO 6 mg BEDTIME PRN Administration Insomnia Omeprazole 20 mg 07/11/24 06:30 07/13/24 05:23 Omeprazole 20 Mg Capsule. PO 20 mg DAILY@0630 DAVID Administration Sacubitril/Valsartan 1 tab 07/10/24 21:00 07/13/24 09:17 Sacubitril/Valsartan 1 Tab Tablet PO 1 tab BID DAVID Administration Protocol Sodium Chloride 3 ml 07/10/24 08:00 07/13/24 09:18 0.9 % Sodium Chloride Flush 3 Ml Syringe IVFLUSH 3 ml QSHIFT DAVID Administration Medical Decision Making Medical Decision Making [facility] Narrative: Chest x-ray: Ill-defined left opacity, likely moderate size pleural effusion, right side opacity, infection versus aspiration versus atelectasis As mentioned above, patient has already been covered with antibiotics. Patient's blood pressure 140/70, no episodes of hypotension, lactic acid 2.0. Sepsis is not suspected Patient needs constant 2 L of oxygen maintain an oxygen saturation in the mid 90s. I discussed the patient with Dr. Funes, patient being admitted Differential Diagnosis Differential Diagnoses: The differential diagnosis associated with the presentation includes (CHF, pneumonia, chronic lung disease) Admission/Observation Consideration of admission/observation: Escalation of care including admission/observation considered Consult Healthcare Provider Management of the patient was discussed with: Hospitalist Lab Data [facility] Lab Attestation statement: I reviewed the patient's lab results. 07/12/24 10:14 07/12/24 10:14 Labs: Lab Results 07/09/24 07/09/24 07/09/24 Range/Units 07:39 21:28 21:37 WBC 8.2 (4.8-10.8) X10*3/uL RBC 4.11 L (4.60-5.80) X10*6/uL Hgb 13.2 L (14.0-18.0) g/dl Hct 38.9 L (42.0-52.0) % MCV 94.6 (80.0-98.0) fL MCH 32.1 (27.0-33.0) pg MCHC 33.9 (31.0-36.0) g/dl RDW 15.1 (11.0-16.0) % Plt Count 144 L D (160-400) X10*3/uL MPV 8.9 L (9.4-12.4) fL Immature Gran % (Auto) 0.5 H (0.0-0.4) % Neut % (Auto) 86.2 H (45-73) % Lymph % (Auto) 6.5 L (20-40) % [place] % (Auto) 6.7 (2-11) % Eos % (Auto) 0.0 (0-4) % Baso % (Auto) 0.1 (0-2) % Lymph # (Auto) 0.5 L (1.2-4.9) X10*3/uL [place] # (Auto) 0.6 (0.1-1.2) X10*3/uL Eos # (Auto) 0.0 (0.0-0.4) X10*3/uL Baso # (Auto) 0.0 (0.0-0.2) X10*3/uL Abs Immat Gran (auto) 0.04 H (0.00-0.03) X10*3/uL Absolute Neuts (auto) 7.1 (2.0-8.3) x10*3/uL Absolute Nucleated RBC 0.000 (0.0-0.012) X10*3/uL Nucleated RBC % (auto) 0.0 (0.0-0.2) /100WBC VBG pH 7.33 (7.32-7.43) VBG pCO2 60 mmHg VBG pO2 38 mmHg VBG HCO3 32 H (22-26) mmol/L VBG O2 Saturation 53.0 % VBG Base Excess 4.6 mmol/L Sodium 145 (135-145) mmol/L Potassium 3.6 D (3.3-5.1) mmol/L Chloride 107 (96-108) mmol/L Carbon Dioxide 27 (22-29) mmol/L Anion Gap 15 (12-20) BUN 31 H (9-16) mg/dL Creatinine 0.86 (0.5-1.4) mg/dL Estim Creat Clear Calc 67.8 Estimated GFR > 60 Random Glucose 121 H (60-115) mg/dL Lactic Acid 2.1 H* (0.5-2.0) mmol/L Lactic Acid F/U @ 2Hr Calcium 8.7 (8.4-10.2) mg/dL Troponin I High Sens 17.6 D (<3.5-35.0) ng/L B-Natriuretic Peptide (<100) pg/mL Urine Color Urine Appearance Urine pH (5.0-9.0) Ur Specific [place] (1.005-1.025) Urine Protein (Neg-Trace) mg/dL Urine Glucose (UA) (Negative) mg/dL Urine Ketones (Negative) mg/dL Urine Blood (Negative) Urine Nitrite (Negative) Ur Leukocyte Esterase (Negative) Urine RBC (0-2) /HPF Urine WBC (0-5) /HPF Ur Squamous Epith Cells (0-2) /HPF Urine Bacteria (None Seen) Hyaline Casts (0-2) /LPF Ethyl Alcohol < 10 mg/dL Influenza Type A (PCR) NEGATIVE (Negative) Influenza Type B (PCR) NEGATIVE (Negative) RSV RNA Qual (PCR) NEGATIVE (Negative) SARS-CoV-2 RNA (RT-PCR) NEGATIVE (Negative) 07/09/24 07/10/24 Range/Units 23:35 01:37 WBC (4.8-10.8) X10*3/uL RBC (4.60-5.80) X10*6/uL Hgb (14.0-18.0) g/dl Hct (42.0-52.0) % MCV (80.0-98.0) fL MCH (27.0-33.0) pg MCHC (31.0-36.0) g/dl RDW (11.0-16.0) % Plt Count (160-400) X10*3/uL MPV (9.4-12.4) fL Immature Gran % (Auto) (0.0-0.4) % Neut % (Auto) (45-73) % Lymph % (Auto) (20-40) % [place] % (Auto) (2-11) % Eos % (Auto) (0-4) % Baso % (Auto) (0-2) % Lymph # (Auto) (1.2-4.9) X10*3/uL [place] # (Auto) (0.1-1.2) X10*3/uL Eos # (Auto) (0.0-0.4) X10*3/uL Baso # (Auto) (0.0-0.2) X10*3/uL Abs Immat Gran (auto) (0.00-0.03) X10*3/uL Absolute Neuts (auto) (2.0-8.3) x10*3/uL Absolute Nucleated RBC (0.0-0.012) X10*3/uL Nucleated RBC % (auto) (0.0-0.2) /100WBC VBG pH (7.32-7.43) VBG pCO2 mmHg VBG pO2 mmHg VBG HCO3 (22-26) mmol/L VBG O2 Saturation % VBG Base Excess mmol/L Sodium (135-145) mmol/L Potassium (3.3-5.1) mmol/L Chloride (96-108) mmol/L Carbon Dioxide (22-29) mmol/L Anion Gap (12-20) BUN (9-16) mg/dL Creatinine (0.5-1.4) mg/dL Estim Creat Clear Calc Estimated GFR Random Glucose (60-115) mg/dL Lactic Acid 2.0 (0.5-2.0) mmol/L Lactic Acid F/U @ 2Hr Cancelled Calcium (8.4-10.2) mg/dL Troponin I High Sens (<3.5-35.0) ng/L B-Natriuretic Peptide 53 (<100) pg/mL Urine Color Dark Yellow Urine Appearance Clear Urine pH 5.5 (5.0-9.0) Ur Specific [place] 1.025 (1.005-1.025) Urine Protein 30 (1+) H (Neg-Trace) mg/dL Urine Glucose (UA) Negative (Negative) mg/dL Urine Ketones Trace (Negative) mg/dL Urine Blood Negative (Negative) Urine Nitrite Negative (Negative) Ur Leukocyte Esterase Trace H (Negative) Urine RBC 0-2 (0-2) /HPF Urine WBC 0-5 (0-5) /HPF Ur Squamous Epith Cells 3-5 (0-2) /HPF Urine Bacteria None Seen (None Seen) Hyaline Casts 0-2 (0-2) /LPF Ethyl Alcohol mg/dL Influenza Type A (PCR) (Negative) Influenza Type B (PCR) (Negative) RSV RNA Qual (PCR) (Negative) SARS-CoV-2 RNA (RT-PCR) (Negative) Independent Interpretation I performed an independent interpretation of an: Plain X-Ray Radiology Impression Discussion of test interpretation with radiology: I have reviewed the radiologist's reading. Radiologist Impression: Ill-defined opacity at the left lung base. Left costophrenic angle not included on this study. There is some mild hazy right base opacity. No pneumothorax. Heart size is normal. No acute fracture. IMPRESSION: 1. Ill-defined left base opacity concerning for moderate-size pleural effusion. 2. Mild hazy right base opacity which could be infection, aspiration or atelectasis. Critical Care Time Critical Care Time Critical Care Time: Yes Total Critical Care Time: 60 Attestation: I have personally provided critical care time. Time includes review of lab data, radiology results, discussion with consultants, and monitoring for potential decompensation. Intervention performed as documented. Discharge Plan Discharge Clinical Impression: Pneumonia Patient Disposition: Admitted As Inpatient Interventions: Admission Worksheet (ED) Last Done: 07/10/24 07:15 Discharge Date/Time: 07/10/24 08:13
[2024-07-09] MEDS: cefTRIAXone sodium 1 GM VIAL IVPUSH (21:32)
[2024-07-09] MEDS: Azithromycin 500 MG in 0.9 % Sodium Chloride 250 ML 125 MG IV (21:32)
[2024-07-09 21:38] LABS: MANUAL DIFF FLAG NO
[2024-07-09 21:41] LABS: Basophils Percent Auto 0.1 % (0-2); Hematocrit 38.9 % (42.0-52.0); Hemoglobin 13.2 g/dl (14.0-18.0); Imm Gran Abs Auto 0.04 X10*3/uL (0.00-0.03); Imm Gran Pct Auto 0.5 % (0.0-0.4); Lymphocytes Absolute Auto 0.5 X10*3/uL (1.2-4.9); Lymphocytes Percent Auto 6.5 % (20-40); Mean Corpuscular HGB Conc 33.9 g/dl (31.0-36.0); Mean Corpuscular Hemoglobin 32.1 pg (27.0-33.0); Mean Corpuscular Volume 94.6 fL (80.0-98.0); Mean Platelet Volume 8.9 fL (9.4-12.4); Monocytes Absolute Auto 0.6 X10*3/uL (0.1-1.2); Monocytes Percent Auto 6.7 % (2-11); Neutrophils Absolute Auto 7.1 x10*3/uL (2.0-8.3); Neutrophils Percent Auto 86.2 % (45-73); Platelet Count 144 X10*3/uL (160-400); Red Blood Count 4.11 X10*6/uL (4.60-5.80); Red Cell Distribution Width 15.1 % (11.0-16.0); White Blood Count 8.2 X10*3/uL (4.8-10.8)
[2024-07-09 21:42] LABS: Venous Blood Gas Refer to POC result
[2024-07-09 21:42] LABS: VBG Base Excess 4.6 mmol/L; VBG HCO3 32 mmol/L (22-26); VBG pCO2 60 mmHg; VBG pH 7.33 (7.32-7.43); VBG pO2 38 mmHg
[2024-07-09 21:45] VITALS: BP 109/52; PULSE 74; RESP 24; O2SAT 96
[2024-07-09 21:56] LABS: Anion Gap 15 (12-20); Blood Urea Nitrogen 31 mg/dL (9-16); Calcium 8.7 mg/dL (8.4-10.2); Carbon Dioxide 27 mmol/L (22-29); Chloride 107 mmol/L (96-108); Creatinine Clr Calc Pharmacy 67.8; Estimated Glomerular Filt Rate > 60; Ethanol < 10 mg/dL; Glucose Random 121 mg/dL (60-115); Potassium 3.6 mmol/L (3.3-5.1); Sodium 145 mmol/L (135-145)
[2024-07-09 22:00] LABS: Lactic Acid 2.1 mmol/L (0.5-2.0)
[2024-07-09 22:02] LABS: Troponin-I High Sensitivity 17.6 ng/L (<3.5-35.0)
--- OUTSIDE RECORDS SUMMARY | 2024-07-09 22:04 | XMS_ITS | Encounter Summary ---
Author Organization [facility] Address [address] [place] [address] Care Team Providers Care Senior Construction Project Manager Name Role Phone Richard Castillo MD Primary Care Provider [phone] Encounter Details Date Type Department Care Team (Late st Contact Info) Description 05/12/2024 Lab Requisition [facility] - Main Lab [address] [facility] [place] [address] iRchard Castillo MD [address] [place] [address] [address] [place], [place] Encounter for therapeutic drug level monitoring; Vitamin D deficiency, unspecified Social History Tobacco Use Types Packs/Day Years Used Date Smoking Tobacco: Never Assessed Sex and Gender Information Value Date Recorded Sex Assigned at Not on file Legal Sex Male 2:21 AM EST Gender Identity Not on file Sexual Orientation Not on file documented as of this encounter Plan of Treatment Not on file documented as of this encounter Procedures Procedure Name Priority Date/Time Associated Diagnosis Comments VITAMIN D 25 HYDROXY Routine 05/12/2024 6:47 AM EST Encounter for therapeutic drug level monitoring Vitamin D deficiency, unspecified documented in this encounter Results * (ABNORMAL) Vitamin D 25 hydroxy (05/12/2024 6:47 AM EST) Vit D, 25-Hydroxy 24.3(L) 30.0 - 80.0 ng/mL LAB CHEMISTRY METHOD 05/12/2024 8:56 AM EST JENNIFER THORNTON [place] [facility] Blood Venous blood specimen / Unknown 05/12/2024 6:47 AM EST 05/12/2024 7:32 AM EST us Richard Castillo MD LAB BLOOD ORDERABLES Final Resul t JENNIFER THORNTON [place] [facility]) [facility] [address] [place] [address], documented in this encounter Visit Diagnoses Diagnosis Encounter for therapeutic drug level monitoring Vitamin D deficiency, unspecified documented in this encounter Care Teams Senior Construction Project Manager Relationship Specialty Start Date End Date Richard Castillo MD [address] [place] [address] Dr [address] [place], [place] PCP - General Internal Medicine 05/20/24 documented as of this encounter
--- OUTSIDE RECORDS SUMMARY | 2024-07-09 22:04 | XMS_ITS | Encounter Summary ---
Author Organization [employer] Address [address] [place] [address] Care Team Providers Care Building Inspector Name Role Phone Rcihard Castillo MD Primary Care Provider [phone] Encounter Details Date Type Department Care Team (Late st Contact Info) Description 03/03/2024 Lab Requisition [facility] - Main Lab [address] [facility] [place] [address] Richard Castillo MD [address] [place] [address] [address] [place], [place] Acute on chronic systolic (congestive) heart failure (CMS/HCC V24, CMS/HCC V28) Social History Tobacco Use Types Packs/Day Years [...] Procedure Name Priority Date/Time Associated Diagnosis Comments COMPREHENSIVE METABOLIC PANEL Routine 03/03/2024 6:54 AM EST Acute on chronic systolic (congestive) heart failure (CMS/HCC) documented in this encounter Results * (ABNORMAL) Comprehensive metabolic panel (03/03/2024 6:54 AM EST) Sodium 138 133 - 145 mmol/L LAB CHEMISTRY METHOD 03/03/2024 7:45 AM EST [facility] Potassium 4.4 3.5 - 5.5 mmol/L LAB CHEMISTRY METHOD 03/03/2024 7:45 AM EST [facility] Chloride 102 96 - 110 mmol/L LAB CHEMISTRY METHOD 03/03/2024 7:45 AM EST [facility] CO2 28 21 - 32 mmol/L LAB CHEMISTRY METHOD 03/03/2024 7:45 AM [facility] Anion Gap 8 3 - 11 LAB CHEMISTRY METHOD 03/03/2024 7:45 AM [facility] Glucose 85 70 - 100 mg/dL LAB CHEMISTRY METHOD 03/03/2024 7:45 AM [facility] BUN 23 5 - 25 mg/dL LAB CHEMISTRY METHOD 03/03/2024 7:45 AM [facility] Creatinine 0.75 0.70 - 1.30 mg/dL LAB CHEMISTRY METHOD 03/03/2024 7:45 AM [facility] eGFR 92 >=60 mL/min/1. 73m2 LAB CHEMISTRY METHOD 03/03/2024 7:45 AM [facility] Comment:Calculation based on the??Chronic Kidney Disease Epidemiology Collaboration (CKD-EPI) equation refit??without adjustment for race. BUN/Creatinine Ratio 30.7 LAB CHEMISTRY METHOD 03/03/2024 7:45 AM [facility] Calcium 9.0 8.5 - 10.5 mg/dL LAB CHEMISTRY METHOD 03/03/2024 7:45 AM [facility] AST (SGOT) 14 10 - 42 unit/L LAB CHEMISTRY METHOD 03/03/2024 7:45 AM [facility] ALT (SGPT) 14 10 - 60 unit/L LAB CHEMISTRY METHOD 03/03/2024 7:45 AM [facility] Alkaline Phosphatase 71 42 - 121 unit/L LAB CHEMISTRY METHOD 03/03/2024 7:45 AM [facility] Total Protein 6.3 6.0 - 8.0 g/dL LAB CHEMISTRY METHOD 03/03/2024 7:45 AM [facility] Albumin 3.0(L) 3.2 - 5.0 g/dL LAB CHEMISTRY METHOD 03/03/2024 7:45 AM [facility] Total Bilirubin 0.4 0.0 - 1.4 mg/dL LAB CHEMISTRY METHOD 03/03/2024 7:45 AM EST [facility] Blood Venous blood specimen / Unknown 03/03/2024 6:54 AM EST 03/03/2024 7:25 AM EST us Richard Castillo MD LAB BLOOD ORDERABLES Final Resul t [facility] [address] [place] [address], documented in this encounter Visit Diagnoses Diagnosis Acute on chronic systolic (congestive) heart failure (CMS/HCC V24, CMS/HCC V28) documented in this encounter Care Teams Building Inspector Relationship Specialty Start Date End Date Richard Castillo MD [address] [place] [address] Dr [address] [place] PCP - General Internal Medicine 05/20/24 documented as of this encounter
--- OUTSIDE RECORDS SUMMARY | 2024-07-09 22:04 | XMS_ITS | Encounter Summary ---
Author Organization [facility] Address [address] [place] [address] Care Team Providers Care Brim Curler Name Role Phone Richard Castillo MD Primary Care Provider [phone] Encounter Details Date Type Department Care Team (Late st Contact Info) Description 06/04/2024 Lab Requisition [facility] - Main Lab [address] [facility] [place] [address] Richard Castillo MD [address] [place] [address] [address] [place], [place] Other specified abnormal findings of blood chemistry Social History Tobacco Use Types Packs/Day Years [...] Associated Diagnosis Comments COMPREHENSIVE METABOLIC PANEL Routine 06/04/2024 6:23 AM EST Other specified abnormal findings of blood chemistry documented in this encounter Results * (ABNORMAL) Comprehensive metabolic panel (06/04/2024 6:23 AM EST) Sodium 137 133 - 145 mmol/L LAB CHEMISTRY METHOD 06/04/2024 7:52 AM EST [facility] Potassium 4.5 3.5 - 5.5 mmol/L LAB CHEMISTRY METHOD 06/04/2024 7:52 AM EST [facility] Chloride 103 96 - 110 mmol/L LAB CHEMISTRY METHOD 06/04/2024 7:52 AM EST [facility] CO2 27 21 - 32 mmol/L LAB CHEMISTRY METHOD 06/04/2024 7:52 AM EST [facility] Anion Gap 7 3 - 11 LAB CHEMISTRY METHOD 06/04/2024 7:52 AM [facility] Glucose 91 70 - 100 mg/dL LAB CHEMISTRY METHOD 06/04/2024 7:52 AM [facility] BUN 29(H) 5 - 25 mg/dL LAB CHEMISTRY METHOD 06/04/2024 7:52 AM [facility] Creatinine 0.70 0.70 - 1.30 mg/dL LAB CHEMISTRY METHOD 06/04/2024 7:52 AM [facility] eGFR 94 >=60 mL/min/1. 73m2 LAB CHEMISTRY METHOD 06/04/2024 7:52 AM [facility] Comment:Calculation based on the??Chronic Kidney Disease Epidemiology Collaboration (CKD-EPI) equation refit??without adjustment for race. BUN/Creatinine Ratio 41.4 LAB CHEMISTRY METHOD 06/04/2024 7:52 AM [facility] Calcium 9.5 8.5 - 10.5 mg/dL LAB CHEMISTRY METHOD 06/04/2024 7:52 AM [facility] AST (SGOT) 15 10 - 42 unit/L LAB CHEMISTRY METHOD 06/04/2024 7:52 AM [facility] ALT (SGPT) 15 10 - 60 unit/L LAB CHEMISTRY METHOD 06/04/2024 7:52 AM [facility] Alkaline Phosphatase 97 42 - 121 unit/L LAB CHEMISTRY METHOD 06/04/2024 7:52 AM [facility] Total Protein 7.5 6.0 - 8.0 g/dL LAB CHEMISTRY METHOD 06/04/2024 7:52 AM [facility] Albumin 3.4 3.2 - 5.0 g/dL LAB CHEMISTRY METHOD 06/04/2024 7:52 AM [facility] Total Bilirubin 0.4 0.0 - 1.4 mg/dL LAB CHEMISTRY METHOD 06/04/2024 7:52 AM [facility] Blood Venous blood specimen / Unknown 06/04/2024 6:23 AM EST 06/04/2024 7:20 AM EST us Richard Castillo MD LAB BLOOD ORDERABLES Final Resul t [facility] [address] [place] [address], documented in this encounter Visit Diagnoses Diagnosis Other specified abnormal findings of blood chemistry documented in this encounter Care Teams Brim Curler Relationship Specialty Start Date End Date Richard Castillo MD [address] [place] [address] Dr [address] [place] PCP - General Internal Medicine 05/20/24 documented as of this encounter
--- OUTSIDE RECORDS SUMMARY | 2024-07-09 22:04 | XMS_ITS | Encounter Summary ---
Author Organization [facility] Address [address] [place] [address] Care Team Providers Care Banquet Line Cook Name Role Phone Richard Castillo MD Primary Care Provider [phone] Encounter Details Date Type Department Care Team (Late st Contact Info) Description 04/10/2024 Lab Requisition [facility] - Main Lab [address] [facility] [place] [address] Richard Castillo MD [address] [place] [address] [address] [place], [place] Heart failure, unspecified (CMS/HCC V24, CMS/HCC V28); Type 2 diabetes mellitus with unspecified complications (CMS/HCC V24, CMS/HCC V28); Hypothyroidism, unspecified Social History Tobacco Use Types Packs/Day [...] Procedure Name Priority Date/Time Associated Diagnosis Comments RED - PLAIN Routine 04/10/2024 7:01 AM EST Heart failure, unspecified (CMS/HCC) Type 2 diabetes mellitus with unspecified complications (CMS/HCC) Hypothyroidism, unspecified THYROID STIMULATING HORMONE Routine 04/10/2024 7:01 AM EST Heart failure, unspecified (CMS/HCC) Type 2 diabetes mellitus with unspecified complications (CMS/HCC) Hypothyroidism, unspecified AMMONIA Routine 04/10/2024 7:01 AM EST Heart failure, unspecified (CMS/HCC) Type 2 diabetes mellitus with unspecified complications (CMS/HCC) Hypothyroidism, unspecified VALPROIC ACID LEVEL, TOTAL Routine 04/10/2024 7:01 AM EST Heart failure, unspecified (CMS/HCC) Type 2 diabetes mellitus with unspecified complications (CMS/HCC) Hypothyroidism, unspecified documented in this encounter Results * Red tube (04/10/2024 7:01 AM EST) Extra Tube Hold for add-ons. 04/10/2024 10:01 AM EST [facility] Comment:Auto resulted. Blood Venous blood specimen / Unknown 04/10/2024 7:01 AM EST 04/10/2024 8:05 AM EST us Richard Castillo MD LAB BLOOD ORDERABLES Final Resul t Performing Organization Address City/[facility]/ZIP Co de Phone Number [facility] [address] [place] [address], [place] [phone] * Thyroid stimulating hormone (04/10/2024 7:01 AM EST) TSH 1.69 0.40 - 4.00 mcIU/mL LAB CHEMISTRY METHOD 04/10/2024 9:25 AM EST [facility] Blood Venous blood specimen / Unknown 04/10/2024 7:01 AM EST 04/10/2024 8:05 AM EST us Richard Castillo MD LAB BLOOD ORDERABLES Final Resul t [facility] [address] [place] [address], [place] [phone] * Ammonia (04/10/2024 7:01 AM EST) Ammonia 25 11 - 35 mcmol/L LAB CHEMISTRY METHOD 04/10/2024 8:35 AM EST [facility] Blood Venous blood specimen / Unknown 04/10/2024 7:01 AM EST 04/10/2024 8:05 AM EST us Richard Castillo MD LAB BLOOD ORDERABLES Final Resul t Performing Organization Address City/[facility]/ZIP Co de Phone Number [facility] [address] [place] [address], [place] [phone] * Valproic acid level, total (04/10/2024 7:01 AM EST) Valproic Acid, Total 89 50 - 100 mcg/mL LAB CHEMISTRY METHOD 04/10/2024 8:35 AM EST [facility] Blood Venous blood specimen / Unknown 04/10/2024 7:01 AM EST 04/10/2024 8:05 AM EST us Richard Castillo MD LAB BLOOD ORDERABLES Final Resul t Performing Organization Address [facility] Co de Phone Number [facility] [address] [place] [address], [place] [phone] documented in this encounter Visit Diagnoses Diagnosis Heart failure, unspecified (CMS/HCC V24, CMS/HCC V28) Heart failure, unspecified Type 2 diabetes mellitus with unspecified complications (CMS/HCC V24, CMS/HCC V28) Hypothyroidism, unspecified documented in this encounter Care Teams Banquet Line Cook Relationship Specialty Start Date End Date Richard Castillo MD [address] [place] [address] [address] [place] PCP - General Internal Medicine 05/20/24 documented as of this encounter
--- OUTSIDE RECORDS SUMMARY | 2024-07-09 22:04 | XMS_ITS | Clinical Summary ---
Author Organization [address] [facility] Address [address] [place] [address] Phone Care Team Providers Care Vocal Teacher Name Role Phone Richard Castillo MD Primary Care Provider Encounters Date Type Department Care Team Description 06/04/2024 Lab Requisition [facility] [address] [place] [id number] Richard Castillo MD Other specified abnormal findings of blood chemistry 05/12/2024 Lab Requisition [facility] [address] [place] [phone] Richard Castillo MD Encounter for therapeutic drug level monitoring; Vitamin D deficiency, unspecified 04/10/2024 Lab Requisition [facility] [address] [place] [phone] Richard Castillo MD Heart failure, unspecified (CMS/HCC V24, CMS/HCC V28); Type 2 diabetes mellitus with unspecified complications (CMS/HCC V24, CMS/HCC V28); Hypothyroidism, unspecified from Last 3 Months Social History Tobacco Use Types Packs/Day Years Used Date Smoking Tobacco: Never Assessed Sex and Gender Information Value Date Recorded Sex Assigned at Not on file Legal Sex Male 2:21 AM EST Gender Identity Not on file Sexual Orientation Not on file Plan of Treatment Health Maintenance Due Date Last Done Comments COVID-19 Vaccine (#1) 1950 Diabetes: Annual Foot Exam 11/07/1955 Diabetes: Annual Retina Eye Exam 11/07/1955 DTaP,Tdap,and Td Vaccines (1 - Tdap) 1964 Pneumococcal Vaccine: 50+ Years (1 of 2 - PCV) 1964 Zoster Vaccines (1 of 2) 1964 RSV Immunization Adult Patients (1 - 1-dose 75+ series) 2020 Cholesterol Screening (Lipid Panel) 03/04/2022 Depression Screening 03/04/2022 Falls Risk Assessment 03/04/2022 Hepatitis C Screening 03/04/2022 Medicare Annual Wellness Visit 03/04/2022 Social Influencers of Health Screening 03/04/2022 Diabetes: Annual Urine Albumin-Creatinine Ratio (uACR) 04/10/2024 Diabetes: Blood Sugar Contro l Test (HGBA1C) 04/10/2024 Influenza Vaccine (Season Ended) 2024 Diabetes: Annual GFR (Glomerular Filtration Rate) 06/04/2025 06/04/2024, 03/03/2024 Hypertension/CHF/CAD Annual BMP Blood Test 06/04/2025 06/04/2024, 03/03/2024 HIB Vaccines Aged Out No longer eligi ble based on patient's age to complete this topic HPV Vaccines Aged Out No longer eligi ble based on patient's age to complete this topic Hepatitis A Vaccines Aged Out No long er eligible based on patient's age to complete this topic Hepatitis B Vaccines Aged Out No long er eligible based on patient's age to complete this topic IPV Vaccines Aged Out No longer eligi ble based on patient's age to complete this topic MMR Vaccines Aged Out No longer eligi ble based on patient's age to complete this topic Meningococcal ACWY Vaccine Aged Out N o longer eligible based on patient's age to complete this topic Meningococcal B Vaccine Aged Out No l onger eligible based on patient's age to complete this topic RSV Immunization Patients Under 20 months Aged Out No longer eligible b ased on patient's age to complete this topic Varicella Vaccines Aged Out No longer eligible based on patient's age to complete this topic Procedures Procedure Name Priority Date/Time Associated Diagnosis Comments COMPREHENSIVE METABOLIC PANEL Routine 06/04/2024 6:23 AM EST Other specified abnormal findings of blood chemistry VITAMIN D 25 HYDROXY Routine 05/12/2024 6:47 AM EST Encounter for therapeutic drug level monitoring Vitamin D deficiency, unspecified RED - PLAIN Routine 04/10/2024 7:01 AM [...] mellitus with unspecified complications (CMS/HCC) Hypothyroidism, unspecified from Last 3 Months Results * (ABNORMAL) Comprehensive metabolic panel (06/04/2024 6:23 AM EST) Sodium 137 133 - 145 mmol/L LAB CHEMISTRY METHOD 06/04/2024 7:52 AM [facility] Potassium 4.5 3.5 - 5.5 mmol/L LAB CHEMISTRY METHOD 06/04/2024 7:52 AM [facility] Chloride 103 96 - 110 mmol/L LAB CHEMISTRY METHOD 06/04/2024 7:52 AM [facility] CO2 27 21 - 32 mmol/L LAB CHEMISTRY METHOD 06/04/2024 7:52 AM [facility] Anion Gap 7 3 - 11 LAB CHEMISTRY METHOD 06/04/2024 7:52 AM [facility] Glucose 91 70 - 100 mg/dL LAB CHEMISTRY METHOD 06/04/2024 7:52 AM [facility] BUN 29(H) 5 - 25 mg/dL LAB CHEMISTRY METHOD 06/04/2024 7:52 AM [facility] Creatinine 0.70 0.70 - 1.30 mg/dL LAB CHEMISTRY METHOD 06/04/2024 7:52 AM [facility] eGFR 94 >=60 mL/min/1. 73m2 LAB CHEMISTRY METHOD 06/04/2024 7:52 AM [facility] Comment:Calculation based on the??Chronic Kidney Disease Epidemiology Collaboration (CKD-EPI) equation refit??without adjustment for race. BUN/Creatinine Ratio 41.4 LAB CHEMISTRY METHOD 06/04/2024 7:52 AM [facility] Calcium 9.5 8.5 - 10.5 mg/dL LAB CHEMISTRY METHOD 06/04/2024 7:52 AM [facility] AST (SGOT) 15 10 - 42 unit/L LAB CHEMISTRY METHOD 06/04/2024 7:52 AM [facility] ALT (SGPT) 15 10 - 60 unit/L LAB CHEMISTRY METHOD 06/04/2024 7:52 AM [facility] Alkaline Phosphatase 97 42 - 121 unit/L LAB CHEMISTRY METHOD 06/04/2024 7:52 AM [facility] Total Protein 7.5 6.0 - 8.0 g/dL LAB CHEMISTRY METHOD 06/04/2024 7:52 AM [facility] Albumin 3.4 3.2 - 5.0 g/dL LAB CHEMISTRY METHOD 06/04/2024 7:52 AM [facility] Total Bilirubin 0.4 0.0 - 1.4 mg/dL LAB CHEMISTRY METHOD 06/04/2024 7:52 AM [facility] Blood Venous blood specimen / Unknown 06/04/2024 6:23 AM EST 06/04/2024 7:20 AM EST us Richard Castillo MD LAB BLOOD ORDERABLES Final Resul t [facility] [address] [place] [address], * (ABNORMAL) Vitamin D 25 hydroxy (05/12/2024 6:47 AM EST) Vit D, 25-Hydroxy 24.3(L) 30.0 - 80.0 ng/mL LAB CHEMISTRY METHOD 05/12/2024 8:56 AM EST [facility] Blood Venous blood specimen / Unknown 05/12/2024 6:47 AM EST 05/12/2024 7:32 AM EST us Richard Castillo MD LAB BLOOD ORDERABLES Final Resul t Performing Organization Address City/[facility]/ZIP Co de Phone Number [facility] [address] [place] [address], [place] [phone] * Red tube (04/10/2024 7:01 AM EST) Extra Tube Hold for add-ons. 04/10/2024 10:01 AM EST [facility] Comment:Auto resulted. Blood Venous blood specimen / Unknown 04/10/2024 7:01 AM EST 04/10/2024 8:05 AM EST us Richard Castillo MD LAB BLOOD ORDERABLES Final Resul t Performing Organization Address [facility] de Phone Number [facility] [address] [place] [address], [place] [phone] * Thyroid stimulating hormone (04/10/2024 7:01 AM EST) TSH 1.69 0.40 - 4.00 mcIU/mL LAB CHEMISTRY METHOD 04/10/2024 9:25 AM EST [facility] Blood Venous blood specimen / Unknown 04/10/2024 7:01 AM EST 04/10/2024 8:05 AM EST us Richard Castillo MD LAB BLOOD ORDERABLES Final Resul t Performing Organization Address [facility] Co de Phone Number [facility] [address] [place] [address], [place] [phone] * Ammonia (04/10/2024 7:01 AM EST) Ammonia 25 11 - 35 mcmol/L LAB CHEMISTRY METHOD 04/10/2024 8:35 AM EST [facility] Blood Venous blood specimen / Unknown 04/10/2024 7:01 AM EST 04/10/2024 8:05 AM EST us Richard Castillo MD LAB BLOOD ORDERABLES Final Resul t [facility] [address] [place] [address], [place] [phone] * Valproic acid level, total (04/10/2024 7:01 AM EST) Valproic Acid, Total 89 50 - 100 mcg/mL LAB CHEMISTRY METHOD 04/10/2024 8:35 AM EST [facility] Blood Venous blood specimen / Unknown 04/10/2024 7:01 AM EST 04/10/2024 8:05 AM EST us Richard Castillo MD LAB BLOOD ORDERABLES Final Resul t Performing Organization Address [facility]/ZIP Co de Phone Number [facility] [address] [place] [address], [place] [phone] from Last 3 Months Insurance MEDICAID - [place] MEDICARE Care Teams Vocal Teacher Relationship Specialty Start Date End Date Richard Castillo MD [address] [place] PCP - General Internal Medicine 05/20/24
[2024-07-09 22:18] LABS: Influenza A PCR NEGATIVE (Negative); Influenza B PCR NEGATIVE (Negative); Resp Syncy Virus RNA Qual PCR NEGATIVE (Negative); SARS COV2 PCR INHOUSE NEGATIVE (Negative)
[2024-07-09 22:38] VITALS: BP 90/45; PULSE 64; RESP 16; O2SAT 90
[2024-07-09 23:24] VITALS: BP 99/49; PULSE 65; RESP 22; TEMP 36.6; O2SAT 94
[2024-07-09 23:35] LABS: Reflex Lactate? Lactic Acid Added
--- NOTE | 2024-07-09 23:47 | PC.NURSE ---
Sepsis bolus not given d/t Pt hx, per provider Simin Wilson.
[2024-07-09 23:58] LABS: B Type Natriuretic Peptide 53 pg/mL (<100)
[2024-07-10] VITALS (9 sets, daily range): BP systolic 89–159; BP diastolic 47–95; PULSE 63–86; RESP 18–24; TEMP 36.5–37.8; O2SAT 95–98
[2024-07-10 01:49] LABS: Appearance Urine Clear; Color Urine Dark Yellow; Glucose Urine UA Negative (Negative); Leukocyte Esterase Urine Trace (Negative); Nitrite Urine Negative (Negative); PH 5.5 (5.0-9.0); Specific Gravity - Urine 1.025 (1.005-1.025); UMIC TRIGGER UACC YES; Urine Blood Negative (Negative); Urine Ketones Trace mg/dL (Negative); Urine Protein 30 (1+) mg/dL (Neg-Trace)
[2024-07-10 01:57] LABS: Bacteria Urine None Seen (None Seen); Hyaline Casts Urine 0-2 /LPF (0-2); RBC Urine 0-2 /HPF (0-2); WBC Urine 0-5 /HPF (0-5)
--- NOTE | 2024-07-10 04:06 | PM.IMHP ---
History of Present Illness Date of Service: 07/10/24 Attending physician on admission: Jos Funes Chief Complaint: lethargic, cough Patient is 70-year-old male with a past medical history significant for recurrent pneumonia, type 2 diabetes, COPD unspecified, acute on chronic respiratory failure, hypothyroid, HFrEF (EF 12/2022 10-15%), epilepsy, prostate cancer, hepatitis-B, dementia, schizophrenia, hypertension and GERD, who [facility] due cough, fever and lethargy. The patient is unable to give history due to dementia and likely metabolic encephalopathy. EMS noted that the patient's oxygen was 84% on room air, with improvement on 2 L via NC. They started an IV and gave him 250 mL NS. Workup in the ED is consistent with temperature of 100.8 degrees, tachypnea, WBC 0.2, lactic acid 2.0, no sepsis. Lactic acid likely elevated secondary to demand ischemia from hypoxia. Chest x-ray with questionable left moderate pleural effusion and possible right lower lobe pneumonia. The patient was started on ceftriaxone and azithromycin. He was also given an additional 200 mL of normal saline in the ED. Review of Systems Review of Systems: Yes Unobtainable due to mental condition [facility] Medical History Hypertension CHF (congestive heart failure) Ischemic congestive cardiomyopathy Ventricular tachycardia Pneumonia due to Acinetobacter species Respiratory failure with hypoxia and hypercapnia Diabetes type 2, controlled Hypertension GERD (gastroesophageal reflux disease) Dementia Epilepsy Dysphagia Spinal stenosis Cervicalgia Muscle weakness (generalized) COPD (chronic obstructive pulmonary disease) Schizo affective schizophrenia Family History Mother Cancer Surgical History S/P TURP Social History Household Members: Other Household Members Other:: Resides at [facility] Housing: [facility] Other:: [facility] [place] [facility] Are you a primary care specialist to a significant other at home: No Do you presently have visiting nurse or other home services: No (Pt resides at [facility]) Unable to assess alcohol history related to: Unable to respond Alcohol intake: unknown Comment: near RN station Patient Tobacco Use Status: Never used Tobacco Second Hand Smoke Exposure: No Advance Directives: Yes Advance Directives on File: Yes Advance Directives Date on File: 08/14/22 service: No Current occupational status: disabled Meds Allergies Allergy/AdvReac Type Severity Reaction Status Date / Time tuberculin, purified protein Allergy Unknown UNKNOWN Verified 07/09/24 21:08 deriva [Tuberculin,Purif.Prot.Deriv.] Active Medications: Current Medications Acetaminophen (Acetaminophen 325 Mg Tablet) 975 mg PO Q6H PRN PRN Reason: Pain, Mild 1-3,fever,headache Benzonatate (Benzonatate 100 Mg Capsule) 100 mg PO TID PRN PRN Reason: Cough Calcium Carbonate (Calcium Carbonate 750 Mg Tab.Chew) 750 mg PO Q4H PRN PRN Reason: Heartburn Enoxaparin Sodium (Enoxaparin Sodium 40 Mg/0.4 Ml Syringe) 40 mg SUBCUT Q24H DAVID Piperacillin Sod/Tazobactam (Sod 3.375 gm/ Sodium Chloride) 50 mls @ 100 mls/hr IV Q6H DAVID Magnesium Hydroxide (Milk Of Magnesia 30 Ml Oral.Susp) 30 ml PO DAILY PRN PRN Reason: Constipation Melatonin (Melatonin 3 Mg Tablet) 6 mg PO BEDTIME PRN PRN Reason: Insomnia Pharmacy Consult (Consult Rx Vancomycin Dosing) 1 each MISCELLANE DAILY PRN PRN Reason: Consult order Sodium Chloride (0.9 % Sodium Chloride Flush 3 Ml Syringe) 3 ml IVFLUSH QSHIFT DAVID Home Medications ?Medication ?Instructions ?Recorded ?Confirmed ?Last Taken ?Type acetaminophen 325 mg capsule 650 mg PO Q6H PRN Pain 01/19/20 04/15/24 Unknown History bicalutamide 50 mg tablet 50 mg PO DAILY 01/19/20 04/15/24 08/22/22 History furosemide 20 mg tablet (Lasix) 40 mg PO DAILY 01/19/20 04/15/24 08/22/22 History lorazepam 2 mg/mL injection 1 mg IM Q5M PRN Seizure Activity 01/19/20 04/15/24 Unknown History solution (Ativan) omeprazole 20 mg capsule,delayed 20 mg PO DAILY@0630 01/19/20 04/15/24 08/22/22 History release guaifenesin 100 mg/5 mL oral liquid 200 mg PO Q6H PRN Cough 12/21/21 04/15/24 Unknown History sodium phosphates 19 gram-7 118 ml OK DAILY PRN Constipation 12/21/21 04/15/24 Unknown History gram/118 mL enema (Fleet Enema) aspirin 81 mg tablet,delayed 81 mg PO DAILY 08/08/22 04/15/24 08/22/22 History release bisacodyl 10 mg rectal suppository 10 mg OK DAILY PRN Constipation 08/08/22 04/15/24 Unknown History divalproex 125 mg capsule,delayed 875 mg PO DAILY 08/08/22 04/15/24 08/22/22 History release sprinkle levalbuterol tartrate 45 2 puff inhalation BID 08/08/22 04/15/24 08/22/22 History mcg/actuation aerosol inhaler sennosides 8.6 mg tablet (senna) 8.6 mg PO BID PRN Constipation 08/08/22 04/15/24 08/22/22 History amiodarone 200 mg tablet 200 mg PO DAILY 08/23/22 04/15/24 Unknown History oxycodone 5 mg tablet 2.5 mg PO TID 12/22/22 04/15/24 Unknown History lactulose 10 gram/15 mL oral 30 ml PO TID elevated ammonia 01/22/23 04/15/24 Unknown History solution aluminum-mag hydroxide-simethicone 20 ml PO Q4H PRN Dyspepsia 04/15/24 04/15/24 Unknown History 200 mg-200 mg-20 mg/5 mL oral susp cephalexin 250 mg capsule 250 mg PO QID cellulitis 04/15/24 04/15/24 Unknown History doxycycline hyclate 50 mg tablet 50 mg PO DAILY Prophylaxis 04/15/24 04/15/24 Unknown History levalbuterol tartrate 45 2 inh inhalation Q4H PRN sob 04/15/24 04/15/24 Unknown History mcg/actuation aerosol inhaler levothyroxine 25 mcg tablet 25 mcg PO DAILY@0600 04/15/24 04/15/24 Unknown History naloxone 4 mg/actuation nasal 4 mg intranasal Q3M PRN Opioid 04/15/24 04/15/24 Unknown History spray (Narcan) Overdose polyvinyl alcohol 1.4 % eye drops 1 drp ophthalmic (eye) Q8H 04/15/24 04/15/24 Unknown History (Artificial Tears (polyvinyl alcohol)) Physical Exam Vital Signs and Narrative: Vital Signs: Last Vital Signs Temp 99.0 F 07/10/24 01:42 Pulse 86 07/10/24 01:42 Resp 24 H 07/10/24 01:42 BP 140/70 H 07/10/24 01:42 Pulse Ox 95 07/10/24 01:42 O2 Del Method Nasal Cannula 07/10/24 01:42 O2 Flow Rate 2 07/10/24 01:42 Oxygen Flow Rate 2 07/09/24 21:03 BMI result Body Mass Index 28.3 General: Alert and oriented to person but not place or time, no acute distress Resp: diminished throughout with crackles. no rhonchi or wheezing. CVS: S1, S2, RRR GI: +BS, NT, no distention Skin: Warm, dry Neuro: Cranial nerves II-XII grossly intact bilaterally. Motor grossly intact bilaterally Extremities: No LE edema Psych: confused Results Labs 07/09/24 07:39 07/09/24 21:28 Labs: Laboratory Results - last 24 hr 07/09/24 07/09/24 07/09/24 07:39 21:28 21:37 MCV 94.6 MCH 32.1 MCHC 33.9 RDW 15.1 Plt Count 144 L D MPV 8.9 L Immature Gran % (Auto) 0.5 H Neut % (Auto) 86.2 H Lymph % (Auto) 6.5 L [place] % (Auto) 6.7 Eos % (Auto) 0.0 Baso % (Auto) 0.1 Lymph # (Auto) 0.5 L [place] # (Auto) 0.6 Eos # (Auto) 0.0 Baso # (Auto) 0.0 Abs Immat Gran (auto) 0.04 H Absolute Neuts (auto) 7.1 Absolute Nucleated RBC 0.000 Nucleated RBC % (auto) 0.0 VBG pH 7.33 VBG pCO2 60 VBG pO2 38 VBG HCO3 32 H VBG O2 Saturation 53.0 VBG Base Excess 4.6 Anion Gap 15 Estim Creat Clear Calc 67.8 Estimated GFR > 60 Random Glucose 121 H Lactic Acid 2.1 H* Lactic Acid F/U @ 2Hr Calcium 8.7 B-Natriuretic Peptide Urine Color Urine Appearance Urine pH Ur Specific [place] Urine Protein Urine Glucose (UA) Urine Ketones Urine Blood Urine Nitrite Ur Leukocyte Esterase Urine RBC Urine WBC Ur Squamous Epith Cells Urine Bacteria Hyaline Casts Ethyl Alcohol < 10 Influenza Type A (PCR) NEGATIVE Influenza Type B (PCR) NEGATIVE RSV RNA Qual (PCR) NEGATIVE SARS-CoV-2 RNA (RT-PCR) NEGATIVE 07/09/24 07/10/24 23:35 01:37 MCV MCH MCHC RDW Plt Count MPV Immature Gran % (Auto) Neut % (Auto) Lymph % (Auto) [place] % (Auto) Eos % (Auto) Baso % (Auto) Lymph # (Auto) [place] # (Auto) Eos # (Auto) Baso # (Auto) Abs Immat Gran (auto) Absolute Neuts (auto) Absolute Nucleated RBC Nucleated RBC % (auto) VBG pH VBG pCO2 VBG pO2 VBG HCO3 VBG O2 Saturation VBG Base Excess Anion Gap Estim Creat Clear Calc Estimated GFR Random Glucose Lactic Acid 2.0 Lactic Acid F/U @ 2Hr Cancelled Calcium B-Natriuretic Peptide 53 Urine Color Dark Yellow Urine Appearance Clear Urine pH 5.5 Ur Specific [place] 1.025 Urine Protein 30 (1+) H Urine Glucose (UA) Negative Urine Ketones Trace Urine Blood Negative Urine Nitrite Negative Ur Leukocyte Esterase Trace H Urine RBC 0-2 Urine WBC 0-5 Ur Squamous Epith Cells 3-5 Urine Bacteria None Seen Hyaline Casts 0-2 Ethyl Alcohol Influenza Type A (PCR) Influenza Type B (PCR) RSV RNA Qual (PCR) SARS-CoV-2 RNA (RT-PCR) Assessment and Plan (1) Acute on chronic respiratory failure with hypoxia and hypercapnia: Status: Acute (2) Pneumonia: Status: Acute (3) Pleural effusion: Status: Acute (4) Metabolic encephalopathy: Status: Acute (5) Chronic anemia: Status: Acute Plan Patient is 70-year-old male with a past medical history significant for recurrent pneumonia, type 2 diabetes, COPD unspecified, acute on chronic respiratory failure, hypothyroid, HFrEF (EF 12/2022 10-15%), epilepsy, prostate cancer, hepatitis-B, dementia, schizophrenia, hypertension and GERD, who presented [facility] the ED from [facility] due cough, fever and lethargy. Workup in the ED is consistent with temperature of 100.8 degrees, tachypnea, WBC 0.2, lactic acid 2.0, no sepsis. Lactic acid likely elevated secondary to demand ischemia from hypoxia. Chest x-ray with questionable left moderate pleural effusion and possible right lower lobe pneumonia. The patient was started on ceftriaxone and azithromycin. He was also given an additional 200 mL of normal saline in the ED. Acute on chronic respiratory failure with hypoxia and hypercapnia secondary to pneumonia and pleural effusion - WBC 8.2, T-max 100.8 degrees, tachypnea, lactic acid 2.0 (secondary to hypoxia), does not meet sepsis criteria - chest x-ray with ill-defined left basilar opacity concerning for moderate size pleural effusion and mild hazy right base opacity which could be infection, aspiration or atelectasis - COVID/flu/RSV negative - BNP 53 - last tachycardic in 12/2022 with EF of 10-15% - given fraction 50 mL IV fluids between EMS in ED, pain from further fluids due to CHF - started on ceftriaxone and azithromycin in ED, switch to vancomycin and Zosyn due to increased risk of an empyema with recurrent pneumonia and pleural effusion - consider IR and pulmonary consultation - echocardiogram - continue Lasix 40mg QD - monitor CBC and BMP Metabolic encephalopathy - secondary to respiratory failure and pneumonia, complicated by dementia diagnosis - IV antibiotics as above - NPO until mental status improves - monitor CBC and BMP Chronic anemia, stable - hemoglobin 13.2, hematocrit 38.9 - monitor CBC Type 2 diabetes - sliding scale insulin - hold p.o. diabetes meds Chronic COPD unspecified, no acute exacerbation - continue home meds Hypothyroid - continue home meds Epilepsy - continue home meds Dementia/mood disorder - continue home meds HTN - hold BP meds at this time, resume when appropriate Med reconciliation not complete upon admission Full code VTE prophylaxis: Lovenox Patient with acute on chronic respiratory failure complicated by pneumonia and pleural effusion, requiring admission for at least 2 midnights stay for IV antibiotics and monitoring. Quality Stroke Does the patient have a stroke diagnosis?: No VTE Prior VTE?: No VTE Risk Level:: Medical - moderate - high VTE Device Contraindication: Treatment Not Indicated VTE Drug Contraindication: N/A - Med Ordered
[2024-07-10] MEDS: Piperacillin Sodium/Tazobactam 3.375 GM in 0.9 % Sodium Chloride 50 ML IV ×4 (04:30→23:27)
[2024-07-10] MEDS: vancomycin/NS 2,000 MG/500 ML PLAST..BAG 250 MG IV (04:37)
[2024-07-10 04:47] LABS: Glucose, Whole Blood 85 mg/dL (60-115)
--- NOTE | 2024-07-10 07:00 | CA_ITS ---
Transthoracic Echocardiogram Patient (Last, First, Middle): Prateek Lee, Gender: Male Date of : 1945 Age: 78 Procedure Date: 07/10/2024 Procedure Type: Transthoracic Echocardiogram Location: [facility] – [place] Height: 165.1 cm Weight: 77.11 kg BSA: 1.85 m2 Heart Rate: 63 bpm BP: 101 / 47 mmHg Studio Camera Operator: SB Referring MD: Rosa Sandhu PA-C Symptoms: pleural effusion, last echo 12/2022 with EF 10-15% Study Quality: Adequate w/Contrast ECG Rhythm: Sinus Conclusions: - Normal left ventricular size, thickness, systolic function, and wall motion. The visually estimated ejection fraction is between 55-60%. Diastolic function is normal for age. - Normal right ventricular cavity size and systolic function. Findings Procedure Information Contrast agent, definity, is being given per protocol without apparent complications. Left Ventricle Normal left ventricular size, thickness, systolic function, and wall motion. The visually estimated ejection fraction is between 55-60%. Diastolic function is normal for age. Right Ventricle Normal right ventricular cavity size and systolic function. Atria The left atrium is normal in size. The right atrium is normal in size. Aortic Valve Normal aortic valve structure and function. There is no aortic valve stenosis. There is no aortic valve regurgitation. Mitral Valve The mitral valve appears normal. There is no mitral valve regurgitation. There is no mitral valve stenosis. Pulmonic Valve Normal pulmonic valve structure and function. There is trace pulmonic valve regurgitation. Tricuspid Valve Normal tricuspid valve structure. There is no tricuspid valve regurgitation. Tricuspid regurgitation envelope is inadequate for calculation of right ventricular systolic pressure. Normal right atrial pressure. Great Vessels All visible segments of the aorta are normal in size. The visualized portions of the pulmonary artery and branches are normal. Venous The inferior vena cava is normal in size and collapses greater than 50% with inspiration. Pericardium/Pleural There is no evidence of pericardial effusion. Prior Study Comparison Changes noted compared to prior study dated: 01/23/2023. EF has normalized. Measurements 2D Linear Measurements IVSd: 0.84 0.6-0.9/0.6-1.0 cm LVIDd: 5.73 3.9-5.3/4.2-5.9 cm LVIDd Index: 3.10 2.4-3.2/2.2-3.1 cm/m2 LVIDs: 4.21 2.0-3.6 cm LVPWd: 0.81 0.7-1.1 cm LA Diam: 4.20 2.7-3.8/3.0-4.0 cm LAIDs Index: 2.27 1.5-2.3 cm/m2 LV Mass: 221.52 67-162/88-224 g LV Mass Index: 119.74 43-95/49-115 g/m2 LVOT Diam: 2.30 3.0+(-)1.3 cm 2D Systolic Function EF 4C: 58.80 >55% EF 2C: 65.70 >55% EF BiP: 62.00 >55% Mitral Valve MV Pk E: 0.64 MV PK A: 0.92 MV Decel Time: 199.00 E/A: 0.70 E'Lateral: 5.77 E'Medial: 5.87 E/E' Med: 11.00 E/E' Lat: 11.10 PHT: 58.00 MVA PHT: 3.79 Decel [place]: 3.23 Aortic Valve AoV Pk Jarrod: 1.26 AoV Pk Grad: 6.00 LVOT LVOT Pk Jarrod: 0.98 LVOT Mn Jarrod: 0.70 LVOT VTI: 0.21 LVOT Pk Grad: 4.00 LVOT Mn Grad: 2.00 LVOT Diam: 2.30 LVOT Area: 4.15 Diastolic Function MV Pk E: 0.64 MV Pk A: 0.92 E/A: 0.70 E'Medial: 5.87 E/E' Med: 11.00 E' Laterial: 5.77 E/E' Lat: 11.10 Right Ventricle TVS' Jarrod: 12.00 Great Vessels Aorta Sinus of Valsalva: 3.70 2.0-3.5 cm Ao Asc: 3.70 2.1-3.4 cm Pulmonary Valve PV Pk Jarrod: 0.90 Peak PV Grad: 3.00 Updated in Other Vendor System with Status of Final Robe Pacheco MD electronically signed on 07/11/2024 11:39:35 PM with status of Final
[2024-07-10 07:40] LABS: Glucose, Whole Blood 85 mg/dL (60-115)
--- NOTE | 2024-07-10 08:12 | PHA.PROG ---
Admission Date/Time: July 10, 2024 03:51 Indication: RESP INF Weight in k.247 kg Adjusted body weight in K.8 KG [place] body weight in K.5 KG Obesity Dosing Indication % IBW: Serum Creatinine - Last 168 Hours 07/09/24 21:28 Creatinine 0.86 Estimated CrCl and GFR - Last 168 Hours 07/09/24 21:28 Estim Creat Clear Calc 67.8 Estimated GFR > 60 Vancomycin Loading Dose: 2000 X 1 Current Vancomycin Dosing Regimen: 1500 Q24H Vancomycin Monitoring using AUC goal of 400 - 600 range with trough as surrogate marker: PREDICTED AUC 476 Date and Time for next Vancomycin Level to be drawn: RANDOM LEVEL BEFORE 2ND DOSE 07/11/24 @0500 Pharmacist Comments on Vancomycin Plan: Vancomycin dosing will take advantage of [employer] as a clinical decision support tool that uses Bayesian modeling to calculate individual patient's pharmacokinetic parameters and forecast the patient's drug concentration time course with the target goal AUC 24 range of 400 - 600 mg/L/hr.
--- NOTE | 2024-07-10 09:21 | MHC.CM.PN ---
CM spoke with Guardian/Bethanie @ [phone] and addressed IMM with her (original will be mailed to Guardian and a copy has been placed on the chart). Patient is a LTC Resident @ [facility] and returning there is the goal, once Patient is medically cleared for dc. CM has initiated and will follow for dc planning.
[2024-07-10 09:49] LABS: MANUAL DIFF FLAG NO
[2024-07-10 09:51] LABS: Basophils Percent Auto 0.3 % (0-2); Eosinophils Percent Auto 0.1 % (0-4); Hematocrit 35.7 % (42.0-52.0); Hemoglobin 11.9 g/dl (14.0-18.0); Imm Gran Abs Auto 0.03 X10*3/uL (0.00-0.03); Imm Gran Pct Auto 0.4 % (0.0-0.4); Lymphocytes Absolute Auto 0.5 X10*3/uL (1.2-4.9); Lymphocytes Percent Auto 6.8 % (20-40); Mean Corpuscular HGB Conc 33.3 g/dl (31.0-36.0); Mean Corpuscular Hemoglobin 32.2 pg (27.0-33.0); Mean Corpuscular Volume 96.5 fL (80.0-98.0); Mean Platelet Volume 9.2 fL (9.4-12.4); Monocytes Absolute Auto 0.5 X10*3/uL (0.1-1.2); Monocytes Percent Auto 6.5 % (2-11); Neutrophils Absolute Auto 6.2 x10*3/uL (2.0-8.3); Neutrophils Percent Auto 85.9 % (45-73); Platelet Count 120 X10*3/uL (160-400); Red Cell Distribution Width 15.1 % (11.0-16.0); White Blood Count 7.2 X10*3/uL (4.8-10.8)
--- NOTE | 2024-07-10 09:53 | HO.PM.IMPN ---
Subjective Subjective Date of Service: 07/10/24 Review of Systems Review of Systems: Yes Unobtainable due to mental condition and Unobtainable due to mental status Physical Exam Vital Signs: Vital Signs: Last Vital Signs Temp 100.0 F 07/10/24 08:00 Pulse 80 07/10/24 08:00 Resp 18 07/10/24 08:00 BP 159/54 H 07/10/24 08:00 Pulse Ox 96 07/10/24 08:00 O2 Del Method Nasal Cannula 07/10/24 08:00 O2 Flow Rate 2 07/10/24 08:00 Oxygen Flow Rate 2 07/09/24 21:03 BMI result Body Mass Index 28.3 alert, no acute distress, lung crackles Objective Data Active Medications Acetaminophen (Acetaminophen 325 Mg Tablet) 975 mg PO Q6H PRN PRN Reason: Pain, Mild 1-3,fever,headache Benzonatate (Benzonatate 100 Mg Capsule) 100 mg PO TID PRN PRN Reason: Cough Calcium Carbonate (Calcium Carbonate 750 Mg Tab.Chew) 750 mg PO Q4H PRN PRN Reason: Heartburn Dextrose (Dextrose 50 % 25 Gm/50 Ml Syringe) 25 gm IVPUSH Q15M PRN; Protocol PRN Reason: per Hypoglycemia Standing Ord. Divalproex Sodium (Divalproex Sodium Sprinkles 125 Mg Cap.) 875 mg PO DAILY DAVID Enoxaparin Sodium (Enoxaparin Sodium 40 Mg/0.4 Ml Syringe) 40 mg SUBCUT Q24H DAVID Glucose (Glucose Gel 15 Gm Gel..Gram.) 15 gm PO Q15M PRN; Protocol PRN Reason: per Hypoglycemia Standing Ord. Piperacillin Sod/Tazobactam (Sod 3.375 gm/ Sodium Chloride) 50 mls @ 100 mls/hr IV Q6H [facility] Last Infusion: 07/10/24 05:00 Dose: Infused Documented By: MARYA Vancomycin HCl 1,500 mg/ (Sodium Chloride) 500 mls @ 333.333 mls/hr IV Q24H [facility] Insulin Human Lispro (Insulin Lispro 100 Unit/Ml 3 Ml Vial) 0 unit SUBCUT Q6H [facility]; Protocol Last Admin: 07/10/24 04:48 Dose: Not Given Documented By: MARYA Non-Admin Reason: No Insulin Coverage Comments: POC 85 Magnesium Hydroxide (Milk Of Magnesia 30 Ml Oral.Susp) 30 ml PO DAILY PRN PRN Reason: Constipation Melatonin (Melatonin 3 Mg Tablet) 6 mg PO BEDTIME PRN PRN Reason: Insomnia Pharmacy Consult (Consult Rx Vancomycin Dosing) 1 each MISCELLANE DAILY PRN PRN Reason: Consult order Sodium Chloride (0.9 % Sodium Chloride Flush 3 Ml Syringe) 3 ml IVFLUSH QSHIFT [facility] Last Admin: 07/10/24 09:29 Dose: Not Given Documented By: EUN Non-Admin Reason: not done in ED Labs 07/10/24 09:42 07/09/24 21:28 Labs: Laboratory Results - last 24 hr 07/09/24 07/09/24 07/09/24 07:39 21:28 21:37 MCV 94.6 MCH 32.1 MCHC 33.9 RDW 15.1 Plt Count 144 L D MPV 8.9 L Immature Gran % (Auto) 0.5 H Neut % (Auto) 86.2 H Lymph % (Auto) 6.5 L [place] % (Auto) 6.7 Eos % (Auto) 0.0 Baso % (Auto) 0.1 Lymph # (Auto) 0.5 L [place] # (Auto) 0.6 Eos # (Auto) 0.0 Baso # (Auto) 0.0 Abs Immat Gran (auto) 0.04 H Absolute Neuts (auto) 7.1 Absolute Nucleated RBC 0.000 Nucleated RBC % (auto) 0.0 VBG pH 7.33 VBG pCO2 60 VBG pO2 38 VBG HCO3 32 H VBG O2 Saturation 53.0 VBG Base Excess 4.6 Anion Gap 15 Estim Creat Clear Calc 67.8 Estimated GFR > 60 POC Glucose Random Glucose 121 H Lactic Acid 2.1 H* Lactic Acid F/U @ 2Hr Calcium 8.7 B-Natriuretic Peptide Urine Color Urine Appearance Urine pH Ur Specific [place] Urine Protein Urine Glucose (UA) Urine Ketones Urine Blood Urine Nitrite Ur Leukocyte Esterase Urine RBC Urine WBC Ur Squamous Epith Cells Urine Bacteria Hyaline Casts Ethyl Alcohol < 10 Influenza Type A (PCR) NEGATIVE Influenza Type B (PCR) NEGATIVE RSV RNA Qual (PCR) NEGATIVE SARS-CoV-2 RNA (RT-PCR) NEGATIVE 07/09/24 07/10/24 07/10/24 23:35 01:37 04:43 MCV MCH MCHC RDW Plt Count MPV Immature Gran % (Auto) Neut % (Auto) Lymph % (Auto) [place] % (Auto) Eos % (Auto) Baso % (Auto) Lymph # (Auto) [place] # (Auto) Eos # (Auto) Baso # (Auto) Abs Immat Gran (auto) Absolute Neuts (auto) Absolute Nucleated RBC Nucleated RBC % (auto) VBG pH VBG pCO2 VBG pO2 VBG HCO3 VBG O2 Saturation VBG Base Excess Anion Gap Estim Creat Clear Calc Estimated GFR POC Glucose 85 Random Glucose Lactic Acid 2.0 Lactic Acid F/U @ 2Hr Cancelled Calcium B-Natriuretic Peptide 53 Urine Color Dark Yellow Urine Appearance Clear Urine pH 5.5 Ur Specific [place] 1.025 Urine Protein 30 (1+) H Urine Glucose (UA) Negative Urine Ketones Trace Urine Blood Negative Urine Nitrite Negative Ur Leukocyte Esterase Trace H Urine RBC 0-2 Urine WBC 0-5 Ur Squamous Epith Cells 3-5 Urine Bacteria None Seen Hyaline Casts 0-2 Ethyl Alcohol Influenza Type A (PCR) Influenza Type B (PCR) RSV RNA Qual (PCR) SARS-CoV-2 RNA (RT-PCR) 07/10/24 07/10/24 07:33 09:42 MCV 96.5 MCH 32.2 MCHC 33.3 RDW 15.1 Plt Count 120 L MPV 9.2 L Immature Gran % (Auto) 0.4 Neut % (Auto) 85.9 H Lymph % (Auto) 6.8 L [place] % (Auto) 6.5 Eos % (Auto) 0.1 Baso % (Auto) 0.3 Lymph # (Auto) 0.5 L [place] # (Auto) 0.5 Eos # (Auto) 0.0 Baso # (Auto) 0.0 Abs Immat Gran (auto) 0.03 Absolute Neuts (auto) 6.2 Absolute Nucleated RBC 0.000 Nucleated RBC % (auto) 0.0 VBG pH VBG pCO2 VBG pO2 VBG HCO3 VBG O2 Saturation VBG Base Excess Anion Gap Estim Creat Clear Calc Estimated GFR POC Glucose 85 Random Glucose Lactic Acid Lactic Acid F/U @ 2Hr Calcium B-Natriuretic Peptide Urine Color Urine Appearance Urine pH Ur Specific [place] Urine Protein Urine Glucose (UA) Urine Ketones Urine Blood Urine Nitrite Ur Leukocyte Esterase Urine RBC Urine WBC Ur Squamous Epith Cells Urine Bacteria Hyaline Casts Ethyl Alcohol Influenza Type A (PCR) Influenza Type B (PCR) RSV RNA Qual (PCR) SARS-CoV-2 RNA (RT-PCR) Assessment and Plan (1) Pneumonia: Status: Acute Plan 70M PMH pneumonia, diabetes, COPD, hypothyroid, chronic systolic CHF with an EF of 10-15%, epilepsy, prostate cancer, hepatitis-B, dementia, schizophrenia, hypertension, GERD presented from [facility] for cough fever and lethargy. Acute on chronic hypoxic respiratory failure and chronic hypercapnic respiratory failure Due to pneumonia with left pleural effusion Continue vancomycin and Zosyn Check CT chest Likely aspiration, follow up speech, NPO for now Chronic systolic CHF Continue amiodarone, Entresto, carvedilol, check echo Lasix Acute metabolic encephalopathy Due to respiratory failure, appears resolved Diabetes Insulin Epilepsy Continue Depakote DVT prophylaxis with Lovenox Full Code reason for continued hospitalization:hypoxia Quality Stroke Does the patient have a stroke diagnosis?: No VTE Prior VTE?: No VTE Risk Level:: Medical - moderate - high VTE Device Contraindication: Treatment Not Indicated VTE Drug Contraindication: N/A - Med Ordered
--- NOTE | 2024-07-10 09:55 | PHA.MEDREC ---
Pharmacy Consult ? Medication Reconciliation Pharmacy has completed the medication reconciliation, utilized list from [facility] [place].
[2024-07-10 10:08] LABS: Anion Gap 14 (12-20); Blood Urea Nitrogen 25 mg/dL (9-16); Calcium 8.8 mg/dL (8.4-10.2); Carbon Dioxide 25 mmol/L (22-29); Chloride 111 mmol/L (96-108); Creatinine Clr Calc Pharmacy 83.4; Estimated Glomerular Filt Rate > 60; Glucose Random 81 mg/dL (60-115); Potassium 3.8 mmol/L (3.3-5.1); Sodium 146 mmol/L (135-145)
[2024-07-10] MEDS: Enoxaparin Sodium 40 MG/0.4 ML SYRINGE SUBCUT (11:31)
[2024-07-10 12:06] LABS: Glucose, Whole Blood 95 mg/dL (60-115)
--- NOTE | 2024-07-10 14:22 | MHC.SL.SWA ---
Speech Pathologist Impression: Risk of Aspiration, Oropharyngeal Dysphagia Risk of Aspiration Due to: Neurological Condition History of Pneumonia Reduced Cognition Dysphasia Diet Status: Upgrade from NPO, start on NDD1/NTL Liquid Consistency and Strategies for Safe Swallow: Liquid Intake Recommendation: Krebs Thick Liquid Intake Strategies: Small Sips No Straws Solid Food Consistency: Dietary Recommendations: Pureed (NDD1) Additional Modifications to Solid Foods: Patient presents with moderate oropharyngeal dysphagia. Slow and disorganized oral phase characterized by repetitive tongue pumping and minimal to no mastication of solids, with associated risk of choking. Pharyngeal swallow trigger was mildly delayed and incomplete laryngeal elevation noted. Patient produced immediate cough, which was notably weak and nonproductive, after trial thin consistency via teaspoon. He tolerated thickened liquids with no overt s/s of aspiration. Recommend start on PUREED (NDD1) solids and NECTAR THICK liquids (NO STRAWS), pills CRUSHED in PUREE. Patient will need 1:1 assistance feeding and aspiration precautions. Oral Medication Intake: Crushed with Puree Please contact the pharmacy regarding appropriate crushable or liquid drug formulations that are available whenever modified delivery is recommended. Compensatory Strategies and Precautions to be Taken for Safe Swallow: Sitting Upright (90 deg) Double Swallow No Straw Small Bites and Sips Alternate Liquids/Solids Rate of Ingestion Change Oral Check Supervision While Eating and Drinking for Safe Swallow: Total Assistance (1:1) Foods to Avoid: Mixed consistencies, difficult to chew solids. Swallowing Recommended Treatments: Compens. Strategy Educat. Recommendation for Speech: Inpatient Speech Therapy Frequency/Duration: M-F Date Range for Service Req: Timeline to reassess: Pharmacology Associate Clinican/Clinical Fellow: No Supervisory Statement: I have reviewed and agree with the student/clinical fellow's documentation: N/A Speech Language Pathologist: Cristy Damico M.A., CCC-LDR NURSE
[2024-07-10] MEDS: Acetaminophen 325 MG TABLET 975 MG PO ×2 (15:50→23:32)
[2024-07-10] MEDS: Lactulose 20 GM/30 ML SOLUTION PO ×2 (15:52→21:54)
[2024-07-10 16:17] LABS: Glucose, Whole Blood 96 mg/dL (60-115)
--- NOTE | 2024-07-10 17:01 | W.PM.IDCN ---
History of Present Illness Data of Consult Service Date: 07/10/24 Requesting physician: Calos Carias Primary Care Provider: DO ARNDALL Lau Reason for consult: right pneumonia He presents with shortness of breath and hypoxia and found to have RLL pneumonia. He has hypoxia. Review of Systems Review of Systems: Yes Unobtainable due to mental condition PMFSH Past Medical History Medical History Hypertension CHF (congestive heart failure) Ischemic congestive cardiomyopathy Ventricular tachycardia Pneumonia due to Acinetobacter species Respiratory failure with hypoxia and hypercapnia Diabetes type 2, controlled Hypertension GERD (gastroesophageal reflux disease) Dementia Epilepsy Dysphagia Spinal stenosis Cervicalgia Muscle weakness (generalized) COPD (chronic obstructive pulmonary disease) Schizo affective schizophrenia Family History Family History Mother Cancer Family history: reviewed and not pertinent Surgical History Surgical History S/P TURP Social History Social History Household Members: Unknown / Unable to assess Household Members Other:: Resides at [facility] Housing: Unknown / Unable to assess Housing Other:: [facility] Are you a primary care director rn to a significant other at home: No Do you presently have visiting nurse or other home services: No (Pt resides at [facility]) Unable to assess alcohol history related to: Unable to respond Alcohol intake: never Comment: near RN station Patient Tobacco Use Status: Never used Tobacco Smoked in Last 30 Days: No Second Hand Smoke Exposure: No Use of substances other than those prescribed or required for medical reasons: Unable to respond Currently Displaying Signs/Symptoms of Drug Intoxication Withdrawal: No Advance Directives: Yes Advance Directives on File: Yes Advance Directives Date on File: 08/14/22 Recently lost weight without trying: Unsure service: No Current occupational status: disabled Meds Allergies Allergy/AdvReac Type Severity Reaction Status Date / Time tuberculin, purified protein Allergy Unknown UNKNOWN Verified 07/09/24 21:08 deriva [Tuberculin,Purif.Prot.Deriv.] Active Medications: Current Medications Acetaminophen (Acetaminophen 325 Mg Tablet) 975 mg PO Q6H PRN PRN Reason: Pain, Mild 1-3,fever,headache Last Admin: 07/10/24 15:50 Dose: 975 mg Amiodarone HCl (Amiodarone Hcl 200 Mg Tablet) 200 mg PO DAILY [facility] Last Admin: 07/10/24 11:26 Dose: Not Given Aspirin (Aspirin Enteric Coated 81 Mg Tablet.) 81 mg PO DAILY [facility] Benzonatate (Benzonatate 100 Mg Capsule) 100 mg PO TID PRN PRN Reason: Cough Bicalutamide (Bicalutamide 50 Mg Tablet) 50 mg PO DAILY [facility] Calcium Carbonate (Calcium Carbonate 750 Mg Tab.Chew) 750 mg PO Q4H PRN PRN Reason: Heartburn Carvedilol (Carvedilol 3.125 Mg Tablet) 3.125 mg PO BID [facility]; Protocol Dextrose (Dextrose 50 % 25 Gm/50 Ml Syringe) 25 gm IVPUSH Q15M PRN; Protocol PRN Reason: per Hypoglycemia Standing Ord. Divalproex Sodium (Divalproex Sodium Sprinkles 125 Mg Cap.) 875 mg PO DAILY [facility] Last Admin: 07/10/24 11:26 Dose: Not Given Enoxaparin Sodium (Enoxaparin Sodium 40 Mg/0.4 Ml Syringe) 40 mg SUBCUT Q24H [facility] Last Admin: 07/10/24 11:31 Dose: 40 mg Furosemide (Furosemide 40 Mg Tablet) 40 mg PO DAILY [facility]; Protocol Glucose (Glucose Gel 15 Gm Gel..Gram.) 15 gm PO Q15M PRN; Protocol PRN Reason: per Hypoglycemia Standing Ord. Piperacillin Sod/Tazobactam (Sod 3.375 gm/ Sodium Chloride) 50 mls @ 100 mls/hr IV Q6H [facility] Last Admin: 07/10/24 16:47 Dose: 100 mls/hr Vancomycin HCl 1,500 mg/ (Sodium Chloride) 500 mls @ 333.333 mls/hr IV Q24H [facility] Insulin Human Lispro (Insulin Lispro 100 Unit/Ml 3 Ml Vial) 0 unit SUBCUT Q6H [facility]; Protocol Last Admin: 07/10/24 16:38 Dose: Not Given Lactulose (Lactulose 20 Gm/30 Ml Solution) 20 gm PO TID [facility] Last Admin: 07/10/24 15:52 Dose: 20 gm Levothyroxine Sodium (Levothyroxine Sodium 25 Mcg Tablet) 25 mcg PO DAILY@0600 [facility] Magnesium Hydroxide (Milk Of Magnesia 30 Ml Oral.Susp) 30 ml PO DAILY PRN PRN Reason: Constipation Melatonin (Melatonin 3 Mg Tablet) 6 mg PO BEDTIME PRN PRN Reason: Insomnia Omeprazole (Omeprazole 20 Mg Capsule.Dr) 20 mg PO DAILY@0630 [facility] Pharmacy Consult (Consult Rx Vancomycin Dosing) 1 each MISCELLANE DAILY PRN PRN Reason: Consult order Sacubitril/Valsartan (Sacubitril/Valsartan 1 Tab Tablet) 1 tab PO BID [facility]; Protocol Sodium Chloride (0.9 % Sodium Chloride Flush 3 Ml Syringe) [facility] Last Admin: 07/10/24 16:54 Dose: Not Given Home Medications ?Medication ?Instructions ?Recorded ?Confirmed ?Last Taken ?Type acetaminophen 325 mg capsule 650 mg PO Q6H PRN Fever Or Pain 01/19/20 07/10/24 Unknown History bicalutamide 50 mg tablet 50 mg PO DAILY 01/19/20 07/10/24 08/22/22 History furosemide 20 mg tablet (Lasix) 40 mg PO DAILY 01/19/20 07/10/24 08/22/22 History omeprazole 20 mg capsule,delayed 20 mg PO DAILY@0630 01/19/20 07/10/24 08/22/22 History release guaifenesin 100 mg/5 mL oral liquid 200 mg PO Q6H PRN Cough 12/21/21 07/10/24 Unknown History sodium phosphates 19 gram-7 118 ml SC DAILY PRN Constipation 12/21/21 07/10/24 Unknown History gram/118 mL enema (Fleet Enema) if bisacodyl supp ineffective aspirin 81 mg tablet,delayed 81 mg PO DAILY 08/08/22 07/10/24 08/22/22 History release bisacodyl 10 mg rectal suppository 10 mg SC DAILY PRN Constipation if 08/08/22 07/10/24 Unknown History senna ineffective divalproex 125 mg capsule,delayed 875 mg PO DAILY 08/08/22 07/10/24 08/22/22 History release sprinkle levalbuterol tartrate 45 2 puff inhalation BID 08/08/22 07/10/24 08/22/22 History mcg/actuation aerosol inhaler sennosides 8.6 mg tablet (senna) 8.6 mg PO DAILY PRN Constipation 08/08/22 07/10/24 08/22/22 History amiodarone 200 mg tablet 200 mg PO DAILY 08/23/22 07/10/24 Unknown History oxycodone 5 mg tablet 2.5 mg PO TID 12/22/22 07/10/24 Unknown History lactulose 10 gram/15 mL oral 30 ml PO TID elevated ammonia 01/22/23 07/10/24 Unknown History solution aluminum-mag hydroxide-simethicone 20 ml PO Q4H PRN Dyspepsia 04/15/24 07/10/24 Unknown History 200 mg-200 mg-20 mg/5 mL oral susp doxycycline hyclate 50 mg tablet 50 mg PO DAILY Prophylaxis 04/15/24 07/10/24 Unknown History levalbuterol tartrate 45 2 inh inhalation Q4H PRN sob 04/15/24 07/10/24 Unknown History mcg/actuation aerosol inhaler levothyroxine 25 mcg tablet 25 mcg PO DAILY@0600 04/15/24 07/10/24 Unknown History naloxone 4 mg/actuation nasal 4 mg intranasal Q3M PRN Opioid 04/15/24 07/10/24 Unknown History spray (Narcan) Overdose polyvinyl alcohol 1.4 % eye drops 1 drp ophthalmic (eye) Q8H PRN Dry 04/15/24 07/10/24 Unknown History (Artificial Tears (polyvinyl Eyes alcohol)) ammonium lactate 12 % lotion 1 appl topical DAILY 07/10/24 07/10/24 Unknown History ammonium lactate 12 % lotion 1 appl topical DAILY PRN skin 07/10/24 07/10/24 Unknown History integrity ergocalciferol (vitamin D2) 1,250 1,250 mcg PO TH@0900 07/10/24 07/10/24 Unknown History mcg (50,000 unit) capsule (Vitamin D2) glucagon HCl 1 mg solution for 1 mg subcut Q15M PRN severe 07/10/24 07/10/24 Unknown History injection hypoglycemia sennosides 8.6 mg tablet (senna) 8.6 mg PO BID 07/10/24 07/10/24 Unknown History Physical Exam Vital Signs: Vital Signs: Last Vital Signs Temp 98.6 F 07/10/24 15:20 Pulse 70 07/10/24 15:20 Resp 18 07/10/24 15:20 BP 110/47 L 07/10/24 15:20 Pulse Ox 96 07/10/24 15:20 O2 Del Method Nasal Cannula 07/10/24 15:20 O2 Flow Rate 3 07/10/24 15:20 Oxygen Flow Rate 2 07/09/24 21:03 BMI result Body Mass Index 28.3 Const: General: cooperative HEENT: Head: Yes normal to inspection Face and sinus: Yes normal facial exam Mouth: Normal oral and palatal mucosa present Teeth and gingiva: dentition normal Eyes: General: appearance normal, both eyes and all related structures Pupils: Equal, round and reactive pupils present Resp: Effort & Inspection: normal respiratory effort Cardio: Rate: regular rate Rhythm: regular rhythm GI: Palpation (GI): Soft to palpation and nontender : General: Yes no CVA tenderness Back/Spine/Pelvis: Back: no CVA tenderness Skin: General skin exam: no rashes or lesions noted Neuro: General: moves all extremities Cranial nerves: Yes Equal, round and reactive pupils present Extrem: General: Yes normal to inspection Psych: Other: not conversanat Results Labs 07/10/24 09:42 07/10/24 09:42 Labs: Short CBC 07/09/24 07/10/24 Range/Units 07:39 09:42 WBC 8.2 7.2 (4.8-10.8) X10*3/uL Hgb 13.2 L 11.9 L (14.0-18.0) g/dl Hct 38.9 L 35.7 L (42.0-52.0) % Plt Count 144 L D 120 L (160-400) X10*3/uL BMP 07/09/24 07/10/24 21:28 09:42 Sodium 145 146 H Potassium 3.6 D 3.8 Chloride 107 111 H Carbon Dioxide 27 25 BUN 31 H 25 H Creatinine 0.86 0.70 Calcium 8.7 8.8 Urine 07/10/24 Range/Units 01:37 Urine Color Dark Yellow Urine Appearance Clear Urine pH 5.5 (5.0-9.0) Ur Specific [place] 1.025 (1.005-1.025) Urine Protein 30 (1+) H (Neg-Trace) mg/dL Urine Glucose (UA) Negative (Negative) mg/dL Assessment and Plan (1) Acute on chronic respiratory failure with hypoxia and hypercapnia: Status: Acute (2) Pneumonia: Status: Acute Plan He has probable aspiration pneumonia,gram negative and anerobes Less likely atypical Would possibly add atypical coverage such as Doxycycline if not improved tomorrow. allergy to PPD may be positive TB test Would continue Zosyn and Vancomycin but stop Vancomycin if MRSA nares negative. Check Tspot
[2024-07-10 20:19] LABS: Glucose, Whole Blood 141 mg/dL (60-115)
[2024-07-11 03:47] VITALS: BP 136/65; PULSE 73; RESP 16; TEMP 36.4; O2SAT 97
[2024-07-11] MEDS: Piperacillin Sodium/Tazobactam 3.375 GM in 0.9 % Sodium Chloride 50 ML IV ×3 (06:01→16:47)
[2024-07-11] MEDS: Levothyroxine Sodium 25 MCG TABLET PO (06:02)
[2024-07-11] MEDS: Omeprazole 20 MG CAPSULE.DR PO (06:02)
[2024-07-11 07:05] VITALS: BP 148/65; PULSE 56; RESP 17; TEMP 37.1; O2SAT 98
[2024-07-11 07:13] LABS: MANUAL DIFF FLAG NO
[2024-07-11 07:34] LABS: Glucose, Whole Blood 109 mg/dL (60-115)
[2024-07-11 07:36] LABS: Anion Gap 10 (12-20); Blood Urea Nitrogen 22 mg/dL (9-16); Carbon Dioxide 26 mmol/L (22-29); Chloride 113 mmol/L (96-108); Creatinine Clr Calc Pharmacy 87.1; Estimated Glomerular Filt Rate > 60; Glucose Random 114 mg/dL (60-115); Potassium 3.8 mmol/L (3.3-5.1); Sodium 145 mmol/L (135-145)
[2024-07-11 07:42] LABS: Basophils Percent Auto 0.4 % (0-2); Eosinophils Absolute Auto 0.2 X10*3/uL (0.0-0.4); Eosinophils Percent Auto 3.7 % (0-4); Hematocrit 38.7 % (42.0-52.0); Hemoglobin 12.3 g/dl (14.0-18.0); Imm Gran Abs Auto 0.04 X10*3/uL (0.00-0.03); Imm Gran Pct Auto 0.7 % (0.0-0.4); Lymphocytes Absolute Auto 0.6 X10*3/uL (1.2-4.9); Lymphocytes Percent Auto 10.2 % (20-40); Mean Corpuscular HGB Conc 31.8 g/dl (31.0-36.0); Mean Corpuscular Hemoglobin 31.5 pg (27.0-33.0); Mean Platelet Volume 9.5 fL (9.4-12.4); Monocytes Absolute Auto 0.4 X10*3/uL (0.1-1.2); Monocytes Percent Auto 6.8 % (2-11); Neutrophils Absolute Auto 4.3 x10*3/uL (2.0-8.3); Neutrophils Percent Auto 78.2 % (45-73); Platelet Count 131 X10*3/uL (160-400); Red Blood Count 3.91 X10*6/uL (4.60-5.80); Red Cell Distribution Width 15.2 % (11.0-16.0); White Blood Count 5.5 X10*3/uL (4.8-10.8)
--- NOTE | 2024-07-11 08:18 | HO.PM.IMPN ---
Subjective Subjective Date of Service: 07/11/24 Interval History: no complaints Physical Exam Vital Signs: Vital Signs: Last Vital Signs Temp 98.8 F 07/11/24 07:05 Pulse 56 07/11/24 07:05 Resp 17 07/11/24 07:05 BP 148/65 H 07/11/24 07:05 Pulse Ox 98 07/11/24 07:05 O2 Del Method Nasal Cannula 07/11/24 07:05 O2 Flow Rate 3 07/11/24 07:05 Oxygen Flow Rate 2 07/09/24 21:03 BMI result Body Mass Index 28.3 alert, no acute distress, lung crackles Objective Data Active Medications Acetaminophen (Acetaminophen 325 Mg Tablet) 975 mg PO Q6H PRN PRN Reason: Pain, Mild 1-3,fever,headache Last Admin: 07/10/24 23:32 Dose: 975 mg Documented By: BROCK Amiodarone HCl (Amiodarone Hcl 200 Mg Tablet) 200 mg PO DAILY [facility] Last Admin: 07/10/24 11:26 Dose: Not Given Documented By: EUN Non-Admin Reason: NPO Aspirin (Aspirin Enteric Coated 81 Mg Tablet.) 81 mg PO DAILY [facility] Benzonatate (Benzonatate 100 Mg Capsule) 100 mg PO TID PRN PRN Reason: Cough Bicalutamide (Bicalutamide 50 Mg Tablet) 50 mg PO DAILY [facility] Calcium Carbonate (Calcium Carbonate 750 Mg Tab.Chew) 750 mg PO Q4H PRN PRN Reason: Heartburn Carvedilol (Carvedilol 3.125 Mg Tablet) 3.125 mg PO BID [facility]; Protocol Last Admin: 07/10/24 21:40 Dose: Not Given Documented By: BROCK Non-Admin Reason: Physician Held Med Dextrose (Dextrose 50 % 25 Gm/50 Ml Syringe) 25 gm IVPUSH Q15M PRN; Protocol PRN Reason: per Hypoglycemia Standing Ord. Divalproex Sodium (Divalproex Sodium Sprinkles 125 Mg ) 875 mg PO DAILY [facility] Last Admin: 07/10/24 11:26 Dose: Not Given Documented By: EUN Non-Admin Reason: NPO Enoxaparin Sodium (Enoxaparin Sodium 40 Mg/0.4 Ml Syringe) 40 mg SUBCUT Q24H [facility] Last Admin: 07/10/24 11:31 Dose: 40 mg Documented By: EUN Furosemide (Furosemide 40 Mg Tablet) 40 mg PO DAILY [facility]; Protocol Glucose (Glucose Gel 15 Gm Gel..Gram.) 15 gm PO Q15M PRN; Protocol PRN Reason: per Hypoglycemia Standing Ord. Piperacillin Sod/Tazobactam (Sod 3.375 gm/ Sodium Chloride) 50 mls @ 100 mls/hr IV Q6H [facility] Last Infusion: 07/11/24 06:44 Dose: Infused Documented By: BROCK Vancomycin HCl 1,500 mg/ (Sodium Chloride) 500 mls @ 333.333 mls/hr IV Q24H [facility] Insulin Human Lispro (Insulin Lispro 100 Unit/Ml 3 Ml Vial) 0 unit SUBCUT Q6H [facility]; Protocol Last Admin: 07/10/24 21:19 Dose: Not Given Documented By: BROCK Non-Admin Reason: No Insulin Coverage Lactulose (Lactulose 20 Gm/30 Ml Solution) 20 gm PO TID [facility] Last Admin: 07/10/24 21:54 Dose: 20 gm Documented By: BROCK Levothyroxine Sodium (Levothyroxine Sodium 25 Mcg Tablet) 25 mcg PO DAILY@0600 [facility] Last Admin: 07/11/24 06:02 Dose: 25 mcg Documented By: BROCK Magnesium Hydroxide (Milk Of Magnesia 30 Ml Oral.Susp) 30 ml PO DAILY PRN PRN Reason: Constipation Melatonin (Melatonin 3 Mg Tablet) 6 mg PO BEDTIME PRN PRN Reason: Insomnia Omeprazole (Omeprazole 20 Mg Capsule.Dr) 20 mg PO DAILY@0630 [facility] Last Admin: 07/11/24 06:02 Dose: 20 mg Documented By: BROCK Pharmacy Consult (Consult Rx Vancomycin Dosing) 1 each MISCELLANE DAILY PRN PRN Reason: Consult order Sacubitril/Valsartan (Sacubitril/Valsartan 1 Tab Tablet) 1 tab PO BID [facility]; Protocol Last Admin: 07/10/24 21:40 Dose: Not Given Documented By: BROCK Non-Admin Reason: Physician Held Med Sodium Chloride (0.9 % Sodium Chloride Flush 3 Ml Syringe) 3 ml IVFLUSH QSHIFT [facility] Last Admin: 07/11/24 00:00 Dose: 3 ml Documented By: BROCK Labs 07/11/24 07:06 07/11/24 07:06 Labs: Laboratory Results - last 24 hr 07/10/24 07/10/24 07/10/24 09:42 12:03 16:09 MCV 96.5 MCH 32.2 MCHC 33.3 RDW 15.1 Plt Count 120 L MPV 9.2 L Immature Gran % (Auto) 0.4 Neut % (Auto) 85.9 H Lymph % (Auto) 6.8 L [place] % (Auto) 6.5 Eos % (Auto) 0.1 Baso % (Auto) 0.3 Lymph # (Auto) 0.5 L [place] # (Auto) 0.5 Eos # (Auto) 0.0 Baso # (Auto) 0.0 Abs Immat Gran (auto) 0.03 Absolute Neuts (auto) 6.2 Absolute Nucleated RBC 0.000 Nucleated RBC % (auto) 0.0 Anion Gap 14 Estim Creat Clear Calc 83.4 Estimated GFR > 60 POC Glucose 95 96 Random Glucose 81 Calcium 8.8 07/10/24 07/11/24 07/11/24 20:08 07:06 07:12 MCV 99.0 H MCH 31.5 MCHC 31.8 RDW 15.2 Plt Count 131 L MPV 9.5 Immature Gran % (Auto) 0.7 H Neut % (Auto) 78.2 H Lymph % (Auto) 10.2 L [place] % (Auto) 6.8 Eos % (Auto) 3.7 Baso % (Auto) 0.4 Lymph # (Auto) 0.6 L [place] # (Auto) 0.4 Eos # (Auto) 0.2 Baso # (Auto) 0.0 Abs Immat Gran (auto) 0.04 H Absolute Neuts (auto) 4.3 Absolute Nucleated RBC 0.000 Nucleated RBC % (auto) 0.0 Anion Gap 10 L Estim Creat Clear Calc 87.1 Estimated GFR > 60 POC Glucose 141 H 109 Random Glucose 114 Calcium 9.0 Microbiology Microbiology Results: Microbiology 07/09/24 21:28 Blood Culture - Preliminary Blood - Venous No growth after 24 hours. 07/09/24 21:29 Blood Culture - Preliminary Blood - Venous No growth after 24 hours. Assessment and Plan (1) Pneumonia: Status: Acute Plan 70M PMH pneumonia, diabetes, COPD, hypothyroid, chronic systolic CHF with an EF of 10-15%, epilepsy, prostate cancer, hepatitis-B, dementia, schizophrenia, hypertension, GERD presented from [facility] for cough fever and lethargy. 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
[2024-07-11 09:19] LABS: Vancomycin Random 6.9 mcg/mL (15-20)
[2024-07-11] MEDS: 0.9 % Sodium Chloride Flush 3 ML SYRINGE IVFLUSH ×3 (10:11→22:22)
[2024-07-11] MEDS: carvediloL 3.125 MG TABLET PO ×2 (10:12→22:21)
[2024-07-11] MEDS: Sacubitril/Valsartan 24/26 1 TAB TABLET PO ×2 (10:12→22:20)
[2024-07-11] MEDS: vancomycin HCL 1,000 MG in 0.9 % Sodium Chloride 250 ML 270 MG IV ×2 (10:12→22:21)
[2024-07-11] MEDS: Aspirin Enteric Coated 81 MG TABLET.DR PO (10:13)
[2024-07-11] MEDS: Divalproex Sodium Sprinkles 125 MG CAP.DR.SPR 875 MG PO (10:13)
[2024-07-11] MEDS: Bicalutamide 50 MG TABLET PO (10:13)
[2024-07-11] MEDS: Enoxaparin Sodium 40 MG/0.4 ML SYRINGE SUBCUT ×2 (10:14→10:30)
[2024-07-11] MEDS: Amiodarone HCL 200 MG TABLET PO (10:14)
[2024-07-11] MEDS: Lactulose 20 GM/30 ML SOLUTION PO (10:30)
[2024-07-11] MEDS: Furosemide 40 MG TABLET PO (10:30)
[2024-07-11 11:02] VITALS: BP 137/69; PULSE 75; RESP 18; TEMP 36.4; O2SAT 96
[2024-07-11 11:29] LABS: Glucose, Whole Blood 112 mg/dL (60-115)
[2024-07-11 15:32] VITALS: BP 138/77; PULSE 75; RESP 17; TEMP 37.1; O2SAT 96
[2024-07-11 16:04] LABS: Glucose, Whole Blood 138 mg/dL (60-115)
[2024-07-11] MEDS: Loperamide HCl 2 MG CAPSULE PO (16:47)
[2024-07-11 19:20] VITALS: BP 117/57; PULSE 67; RESP 18; TEMP 36.8; O2SAT 98
[2024-07-11] MEDS: Acetaminophen 325 MG TABLET 975 MG PO (22:33)
[2024-07-11 23:29] VITALS: BP 117/59; PULSE 55; RESP 18; TEMP 36.8; O2SAT 95
[2024-07-12] MEDS: Piperacillin Sodium/Tazobactam 3.375 GM in 0.9 % Sodium Chloride 50 ML IV ×5 (00:13→22:59)
[2024-07-12 00:17] LABS: Glucose, Whole Blood 107 mg/dL (60-115)
[2024-07-12 03:13] VITALS: BP 136/63; PULSE 53; RESP 18; TEMP 37.4; O2SAT 98
[2024-07-12] MEDS: Levothyroxine Sodium 25 MCG TABLET PO (05:28)
[2024-07-12] MEDS: Omeprazole 20 MG CAPSULE.DR PO (05:35)
[2024-07-12] MEDS: Calcium Carbonate 750 MG TAB.CHEW PO (05:48)
[2024-07-12 05:54] LABS: Glucose, Whole Blood 94 mg/dL (60-115)
[2024-07-12 07:27] LABS: Glucose, Whole Blood 91 mg/dL (60-115)
[2024-07-12 08:00] VITALS: BP 153/72; PULSE 64; RESP 20; TEMP 36.3; O2SAT 97
[2024-07-12] MEDS: Enoxaparin Sodium 40 MG/0.4 ML SYRINGE SUBCUT (08:55)
[2024-07-12] MEDS: carvediloL 3.125 MG TABLET PO ×2 (08:56→20:47)
[2024-07-12] MEDS: Furosemide 40 MG TABLET PO (08:56)
[2024-07-12] MEDS: Aspirin Enteric Coated 81 MG TABLET.DR PO (08:57)
[2024-07-12] MEDS: Amiodarone HCL 200 MG TABLET PO (08:57)
[2024-07-12] MEDS: Sacubitril/Valsartan 24/26 1 TAB TABLET PO ×2 (08:57→20:47)
[2024-07-12] MEDS: Divalproex Sodium Sprinkles 125 MG CAP.DR.SPR 875 MG PO (08:57)
[2024-07-12] MEDS: vancomycin HCL 1,000 MG in 0.9 % Sodium Chloride 250 ML 270 MG IV (08:58)
[2024-07-12] MEDS: Bicalutamide 50 MG TABLET PO (08:58)
--- NOTE | 2024-07-12 09:39 | HO.PM.IMPN ---
Subjective Subjective Date of Service: 07/12/24 Interval History: no complaints Physical Exam Vital Signs: Vital Signs: Last Vital Signs Temp 97.4 F 07/12/24 08:00 Pulse 64 07/12/24 08:00 Resp 20 07/12/24 08:00 BP 153/72 H 07/12/24 08:00 Pulse Ox 97 07/12/24 08:00 O2 Del Method Nasal Cannula 07/12/24 08:00 O2 Flow Rate 2 07/12/24 08:00 Oxygen Flow Rate 2 07/09/24 21:03 BMI result Body Mass Index 28.3 alert, no acute distress, lung crackles Objective Data Active Medications Acetaminophen (Acetaminophen 325 Mg Tablet) 975 mg PO Q6H PRN PRN Reason: Pain, Mild 1-3,fever,headache Last Admin: 07/11/24 22:33 Dose: 975 mg Documented By: SEBASTIAN Amiodarone HCl (Amiodarone Hcl 200 Mg Tablet) 200 mg PO DAILY [facility] Last Admin: 07/12/24 08:57 Dose: 200 mg Documented By: MICHAEL Aspirin (Aspirin Enteric Coated 81 Mg Tablet.) 81 mg PO DAILY [facility] Last Admin: 07/12/24 08:57 Dose: 81 mg Documented By: MICHAEL Benzonatate (Benzonatate 100 Mg Capsule) 100 mg PO TID PRN PRN Reason: Cough Bicalutamide (Bicalutamide 50 Mg Tablet) 50 mg PO DAILY [facility] Last Admin: 07/12/24 08:58 Dose: 50 mg Documented By: MICHAEL Calcium Carbonate (Calcium Carbonate 750 Mg Tab.Chew) 750 mg PO Q4H PRN PRN Reason: Heartburn Last Admin: 07/12/24 05:48 Dose: 750 mg Documented By: SEBASTIAN Carvedilol (Carvedilol 3.125 Mg Tablet) 3.125 mg PO BID [facility]; Protocol Last Admin: 07/12/24 08:56 Dose: 3.125 mg Documented By: MICHAEL Dextrose (Dextrose 50 % 25 Gm/50 Ml Syringe) 25 gm IVPUSH Q15M PRN; Protocol PRN Reason: per Hypoglycemia Standing Ord. Divalproex Sodium (Divalproex Sodium Sprinkles 125 Mg Jimbo.) 875 mg PO DAILY [facility] Last Admin: 07/12/24 08:57 Dose: 875 mg Documented By: MICHAEL Enoxaparin Sodium (Enoxaparin Sodium 40 Mg/0.4 Ml Syringe) 40 mg SUBCUT Q24H [facility] Last Admin: 07/12/24 08:55 Dose: 40 mg Documented By: MICHAEL Furosemide (Furosemide 40 Mg Tablet) 40 mg PO DAILY [facility]; Protocol Last Admin: 07/12/24 08:56 Dose: 40 mg Documented By: MICHAEL Glucose (Glucose Gel 15 Gm Gel..Gram.) 15 gm PO Q15M PRN; Protocol PRN Reason: per Hypoglycemia Standing Ord. Piperacillin Sod/Tazobactam (Sod 3.375 gm/ Sodium Chloride) 50 mls @ 100 mls/hr IV Q6H [facility] Last Infusion: 07/12/24 06:12 Dose: Infused Documented By: SEBASTIAN Vancomycin HCl 1,000 mg/ (Sodium Chloride) 270 mls @ 270 mls/hr IV Q12H [facility] Last Admin: 07/12/24 08:58 Dose: 270 mls/hr Documented By: MICHAEL Insulin Human Lispro (Insulin Lispro 100 Unit/Ml 3 Ml Vial) 0 unit SUBCUT Q6H [facility]; Protocol Last Admin: 07/12/24 05:50 Dose: Not Given Documented By: SEBASTIAN Non-Admin Reason: No Insulin Coverage Lactulose (Lactulose 20 Gm/30 Ml Solution) 20 gm PO TID [facility] Last Admin: 07/11/24 22:29 Dose: Not Given Documented By: SEBASTIAN Non-Admin Reason: Diarrhea Levothyroxine Sodium (Levothyroxine Sodium 25 Mcg Tablet) 25 mcg PO DAILY@0600 [facility] Last Admin: 07/12/24 05:28 Dose: 25 mcg Documented By: SEBASTIAN Loperamide HCl (Loperamide Hcl 2 Mg Capsule) 2 mg PO Q4H PRN PRN Reason: Diarrhea Last Admin: 07/11/24 16:47 Dose: 2 mg Documented By: MICHAEL Magnesium Hydroxide (Milk Of Magnesia 30 Ml Oral.Susp) 30 ml PO DAILY PRN PRN Reason: Constipation Melatonin (Melatonin 3 Mg Tablet) 6 mg PO BEDTIME PRN PRN Reason: Insomnia Omeprazole (Omeprazole 20 Mg Capsule.Dr) 20 mg PO DAILY@0630 [facility] Last Admin: 07/12/24 05:35 Dose: 20 mg Documented By: SEBASTIAN Pharmacy Consult (Consult Rx Vancomycin Dosing) 1 each MISCELLANE DAILY PRN PRN Reason: Consult order Sacubitril/Valsartan (Sacubitril/Valsartan 1 Tab Tablet) 1 tab PO BID [facility]; Protocol Last Admin: 07/12/24 08:57 Dose: 1 tab Documented By: MICHAEL Sodium Chloride (0.9 % Sodium Chloride Flush 3 Ml Syringe) 3 ml IVFLUSH QSHIFT [facility] Last Admin: 07/11/24 22:22 Dose: 3 ml Documented By: SEBASTIAN Labs 07/11/24 07:06 07/11/24 07:06 Labs: Laboratory Results - last 24 hr 07/11/24 07/11/24 07/12/24 11:22 15:56 00:13 POC Glucose 112 138 H 107 07/12/24 07/12/24 05:47 07:23 POC Glucose 94 91 Microbiology Microbiology Results: Microbiology 07/09/24 21:28 Blood Culture - Preliminary Blood - Venous No growth after 48 hours. 07/09/24 21:29 Blood Culture - Preliminary Blood - Venous No growth after 48 hours. Assessment and Plan (1) Pneumonia: Status: Acute Plan 70M PMH pneumonia, diabetes, COPD, hypothyroid, chronic systolic CHF with an EF of 10-15%, epilepsy, prostate cancer, hepatitis-B, dementia, schizophrenia, hypertension, GERD presented from [facility] for cough fever and lethargy. 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
[2024-07-12 10:26] LABS: MANUAL DIFF FLAG NO
[2024-07-12 10:27] LABS: Basophils Percent Auto 0.5 % (0-2); Eosinophils Absolute Auto 0.4 X10*3/uL (0.0-0.4); Eosinophils Percent Auto 9.4 % (0-4); Hematocrit 38.1 % (42.0-52.0); Hemoglobin 12.2 g/dl (14.0-18.0); Imm Gran Abs Auto 0.03 X10*3/uL (0.00-0.03); Imm Gran Pct Auto 0.7 % (0.0-0.4); Lymphocytes Absolute Auto 0.7 X10*3/uL (1.2-4.9); Lymphocytes Percent Auto 16.7 % (20-40); Mean Corpuscular Hemoglobin 31.9 pg (27.0-33.0); Mean Corpuscular Volume 99.7 fL (80.0-98.0); Mean Platelet Volume 9.4 fL (9.4-12.4); Monocytes Absolute Auto 0.3 X10*3/uL (0.1-1.2); Monocytes Percent Auto 6.7 % (2-11); Neutrophils Absolute Auto 2.9 x10*3/uL (2.0-8.3); Platelet Count 155 X10*3/uL (160-400); Red Blood Count 3.82 X10*6/uL (4.60-5.80); Red Cell Distribution Width 14.9 % (11.0-16.0); White Blood Count 4.4 X10*3/uL (4.8-10.8)
[2024-07-12 10:42] LABS: Anion Gap 12 (12-20); Blood Urea Nitrogen 15 mg/dL (9-16); Calcium 8.7 mg/dL (8.4-10.2); Carbon Dioxide 28 mmol/L (22-29); Chloride 110 mmol/L (96-108); Creatinine Clr Calc Pharmacy 85.8; Estimated Glomerular Filt Rate > 60; Glucose Random 136 mg/dL (60-115); Potassium 3.8 mmol/L (3.3-5.1); Sodium 146 mmol/L (135-145)
[2024-07-12 11:05] LABS: Glucose, Whole Blood 178 mg/dL (60-115)
[2024-07-12 11:52] LABS: MRSA Nasal PCR NEGATIVE (Negative); SA Nasal PCR NEGATIVE (Negative)
[2024-07-12 12:00] VITALS: BP 110/59; PULSE 62; RESP 20; TEMP 36.7; O2SAT 94
[2024-07-12] MEDS: Acetaminophen 325 MG TABLET 975 MG PO (12:38)
[2024-07-12] MEDS: Insulin Lispro 100 UNIT/ML 3 ML VIAL SUBCUT (12:39)
[2024-07-12 15:47] VITALS: BP 99/54; PULSE 57; RESP 16; TEMP 36.1; O2SAT 94
[2024-07-12] MEDS: Lactulose 20 GM/30 ML SOLUTION PO ×2 (16:22→20:47)
[2024-07-12 16:28] LABS: Glucose, Whole Blood 110 mg/dL (60-115)
[2024-07-12] MEDS: 0.9 % Sodium Chloride Flush 3 ML SYRINGE IVFLUSH ×2 (17:59→20:48)
[2024-07-12 20:00] VITALS: BP 110/60; PULSE 67; RESP 18; TEMP 36.3; O2SAT 98
[2024-07-12 20:17] LABS: Glucose, Whole Blood 141 mg/dL (60-115)
[2024-07-12] MEDS: Melatonin 3 MG TABLET 6 MG PO (20:50)
[2024-07-13] VITALS: BP 135/74; PULSE 60; RESP 18; TEMP 36.9; O2SAT 99
[2024-07-13 00:41] LABS: Glucose, Whole Blood 129 mg/dL (60-115)
[2024-07-13 03:15] VITALS: BP 134/75; PULSE 65; RESP 18; TEMP 36.3; O2SAT 97
[2024-07-13] MEDS: Piperacillin Sodium/Tazobactam 3.375 GM in 0.9 % Sodium Chloride 50 ML IV ×2 (05:02→09:14)
[2024-07-13] MEDS: Levothyroxine Sodium 25 MCG TABLET PO (05:23)
[2024-07-13] MEDS: Omeprazole 20 MG CAPSULE.DR PO (05:23)
[2024-07-13 07:21] LABS: Glucose, Whole Blood 98 mg/dL (60-115)
[2024-07-13 07:23] VITALS: BP 154/72; PULSE 70; RESP 18; TEMP 36.9; O2SAT 98
--- NOTE | 2024-07-13 08:57 | P.DS_ITS ---
DS: Providers Provider Date of Service: 07/13/24 Date of admission: 07/10/24 03:51 Date of discharge: 07/13/24 Primary care physician: Richard Castillo DO Consults: 07/10/24 03:56 Consult to Infectious Diseases Routine Consulting Provider: [facility] [place] [facility] Reason for consultation: recurrent pneumonia, new pleural effusion Has provider been notified: No 07/11/24 23:23 Consult to Wound Care Routine Reason for consultation: Redness to coccyx DS: Diagnosis Discharge Diagnosis (1) Pneumonia: Status: Acute DS: Summary Hospital Course Hospital Course: from initial hpi: 70-year-old male with a past medical history significant for recurrent pneumonia, type 2 diabetes, COPD unspecified, acute on chronic respiratory failure, hypothyroid, HFrEF (EF 12/2022 10-15%), epilepsy, prostate cancer, hepatitis-B, dementia, schizophrenia, hypertension and GERD, who presented to the ED from [facility] due cough, fever and lethargy. The patient is unable to give history due to dementia and likely metabolic encephalopathy. EMS noted that the patient's oxygen was 84% on room air, with improvement on 2 L via NC. They started an IV and gave him 250 mL NS. Workup in the ED is consistent with temperature of 100.8 degrees, tachypnea, WBC 0.2, lactic acid 2.0, no sepsis. Lactic acid likely elevated secondary to demand ischemia from hypoxia. Chest x-ray with questionable left moderate pleural effusion and possible right lower lobe pneumonia. The patient was started on ceftriaxone and azithromycin. He was also given an additional 200 mL of normal saline in the ED. hospital course: Patient was admitted for acute on chronic hypoxic respiratory failure and chronic hypercapnic respiratory failure due to pneumonia with left pleural effusion complicated by acute metabolic encephalopathy. Was seen by ID recommended vancomycin Zosyn, MRSA swab was negative and vancomycin was DC. This is likely aspiration and was seen by speech therapy was recommended to continue pureed solids with nectar thick liquids. Oxygen returned to baseline. Mental status returned to baseline. will be discharged on 5 more days of Augmentin. For CHF with recovered ejection fraction was continued on amiodarone, Entresto, carvedilol, Lasix p.o., echo showed normal EF. For diabetes continued on insulin. For epilepsy continued on Depakote. Patient will be discharged back to [facility]. Time Attestation Discharge Coordination Time (in mins): 33 Quality: Safe Use of Opioids Does Pt have an Active Cancer Diagnosis on the Problem List?: No Quality: Stroke Does the patient have a stroke diagnosis?: No Physical Exam Vital Signs: Vital Signs: Last Vital Signs Temp 98.5 F 07/13/24 07:23 Pulse 70 07/13/24 07:23 Resp 18 07/13/24 07:23 BP 154/72 H 07/13/24 07:23 Pulse Ox 98 07/13/24 07:23 O2 Del Method Nasal Cannula 07/13/24 07:23 O2 Flow Rate 2 07/13/24 07:23 Oxygen Flow Rate 2 07/09/24 21:03 BMI result Body Mass Index 28.3 alert, no acute distress, lung crackles DS: Data Data Completed and Pending Completed studies during hospitalization [Text1]: Procedures Assistance with Respiratory Ventilation, Less than 24 Consecutive Hours, Continuous Positive Airway Pressure (01/22/23) Insertion of Infusion Device into Lower Vein, Percutaneous Approach (09/04/22) Insertion of Infusion Device into Right Atrium, Percutaneous Approach (08/23/22) Insertion of Infusion Device into Superior Vena Cava, Percutaneous Approach (08/08/22) Introduction of Vasopressor into Central Vein, Percutaneous Approach (09/04/22) Worship of Cardiac Rhythm, Single (08/08/22) Ultrasonography of Superior Vena Cava, Guidance (08/23/22) Labs on day of discharge: Laboratory Results - last 24 hr 07/11/24 07/12/24 07/12/24 14:43 10:14 10:55 WBC 4.4 L RBC 3.82 L Hgb 12.2 L Hct 38.1 L MCV 99.7 H MCH 31.9 MCHC 32.0 RDW 14.9 Plt Count 155 L MPV 9.4 Immature Gran % (Auto) 0.7 H Neut % (Auto) 66.0 Lymph % (Auto) 16.7 L [place] % (Auto) 6.7 Eos % (Auto) 9.4 H Baso % (Auto) 0.5 Lymph # (Auto) 0.7 L [place] # (Auto) 0.3 Eos # (Auto) 0.4 Baso # (Auto) 0.0 Abs Immat Gran (auto) 0.03 Absolute Neuts (auto) 2.9 Absolute Nucleated RBC 0.000 Nucleated RBC % (auto) 0.0 Sodium 146 H Potassium 3.8 Chloride 110 H Carbon Dioxide 28 Anion Gap 12 BUN 15 Creatinine 0.68 Estim Creat Clear Calc 85.8 Estimated GFR > 60 POC Glucose 178 H Random Glucose 136 H Calcium 8.7 Nasal Screen MRSA (PCR) NEGATIVE Nasal S. aureus Screen NEGATIVE Nasal MRSA/S.aureus Interp SEE NOTE 07/12/24 07/12/24 07/12/24 16:20 20:11 23:58 WBC RBC Hgb Hct MCV MCH MCHC RDW Plt Count MPV Immature Gran % (Auto) Neut % (Auto) Lymph % (Auto) [place] % (Auto) Eos % (Auto) Baso % (Auto) Lymph # (Auto) [place] # (Auto) Eos # (Auto) Baso # (Auto) Abs Immat Gran (auto) Absolute Neuts (auto) Absolute Nucleated RBC Nucleated RBC % (auto) Sodium Potassium Chloride Carbon Dioxide Anion Gap BUN Creatinine Estim Creat Clear Calc Estimated GFR POC Glucose 110 141 H 129 H Random Glucose Calcium Nasal Screen MRSA (PCR) Nasal S. aureus Screen Nasal MRSA/S.aureus Interp 07/13/24 07:02 WBC RBC Hgb Hct MCV MCH MCHC RDW Plt Count MPV Immature Gran % (Auto) Neut % (Auto) Lymph % (Auto) [place] % (Auto) Eos % (Auto) Baso % (Auto) Lymph # (Auto) [place] # (Auto) Eos # (Auto) Baso # (Auto) Abs Immat Gran (auto) Absolute Neuts (auto) Absolute Nucleated RBC Nucleated RBC % (auto) Sodium Potassium Chloride Carbon Dioxide Anion Gap BUN Creatinine Estim Creat Clear Calc Estimated GFR POC Glucose 98 Random Glucose Calcium Nasal Screen MRSA (PCR) Nasal S. aureus Screen Nasal MRSA/S.aureus Interp Preliminary micro results at discharge 07/09/24 21:28 Blood Culture - Preliminary Blood - Venous No growth after 48 hours. 07/09/24 21:29 Blood Culture - Preliminary Blood - Venous No growth after 48 hours. Discharge Plan Discharge Anticipated Discharge Date/Time: 07/13/24 08:55 Patient Disposition: Xfer SNF Discharge Diagnosis: Aspiration pneumonia Referrals: [facility] [Outside] Richard Castillo DO [Primary Care Provider] - 1 Week Discharge Medications: New amoxicillin-pot clavulanate 875-125 mg tablet 1 tab PO BID Qty: 10 0RF Continued acetaminophen 325 mg Capsule 650 mg PO Q6H MDD 3g/day PRN (Reason: Fever Or Pain) bicalutamide 50 mg Tablet 50 mg PO DAILY omeprazole 20 mg Capsule,Delayed Release(Dr/Ec) 20 mg PO DAILY@0630 furosemide [Lasix] 20 mg Tablet 40 mg PO DAILY guaifenesin 100 mg/5 mL Liquid 200 mg PO Q6H PRN (Reason: Cough) Fleet Enema 19-7 gram/118 mL Enema 118 ml RI DAILY PRN (Reason: Constipation if bisacodyl supp ineffective) amiodarone 200 mg tablet 200 mg PO DAILY polyvinyl alcohol [Artificial Tears (polyvin alc)] 1.4 % Drops 1 drp OPHTHALMIC (EYE) Q8H PRN (Reason: Dry Eyes) levothyroxine 25 mcg Tablet 25 mcg PO DAILY@0600 alum-mag hydroxide-simeth 200-200-20 mg/5 mL Suspension 20 ml PO Q4H MDD 120 PRN (Reason: Dyspepsia) Rx Instructions: administer between meals and at bedtime levalbuterol tartrate 45 mcg/actuation Hfa Aerosol Inhaler 2 inh INHALATION Q4H PRN (Reason: sob) doxycycline hyclate 50 mg Tablet 50 mg PO DAILY naloxone [Narcan] 4 mg/actuation Dime [place],Non-Aerosol 4 mg INTRANASAL Q3M PRN (Reason: Opioid Overdose) Rx Instructions: spray 1 dose into ONE nostril; alternate nostrils w each dose until help arrives sennosides [senna] 8.6 mg Tablet 8.6 mg PO DAILY PRN (Reason: Constipation) aspirin 81 mg Tablet,Delayed Release (Dr/Ec) 81 mg PO DAILY bisacodyl 10 mg Suppository 10 mg RI DAILY PRN (Reason: Constipation if senna ineffective) levalbuterol tartrate 45 mcg/actuation HFA aerosol inhaler 2 puff inhalation BID divalproex 125 mg capsule, delayed rel sprinkle 875 mg PO DAILY carvedilol 3.125 mg Tablet 3.125 mg PO BID Qty: 0 0RF Protocol: Hold for SBP/HR < HOLD for SBP < : 90 HOLD for HR < : 60 Rx Instructions: hold for SBP less than 90 or HR less than 60 oxycodone 5 mg tablet 2.5 mg PO TID lactulose 10 gram/15 mL solution 30 ml PO TID Entresto 24-26 mg Tablet 1 tab PO BID Qty: 60 0RF Protocol: Hold for SBP< HOLD for SBP < : 90 Rx Instructions: hold for SBP less than 90 sennosides [senna] 8.6 mg Tablet 8.6 mg PO BID ammonium lactate 12 % Lotion 1 appl TOPICAL DAILY Rx Instructions: bilateral legs ammonium lactate 12 % Lotion 1 appl TOPICAL DAILY PRN (Reason: skin integrity) Rx Instructions: bilateral legs ergocalciferol (vitamin D2) [Vitamin D2] 1,250 mcg (50,000 unit) Capsule 1,250 mcg PO TH@0900 Rx Instructions: END DATE 08/06/2024 glucagon HCl 1 mg Recon Soln 1 mg SUBCUT Q15M PRN (Reason: severe hypoglycemia) Rx Instructions: until target blood sugar attained Discharge Orders: Discharge Order (Routine); Ordered 07/13/24 Ordered By: Calos Carias Diet: pureed, nectar thick Activity on Discharge: As tolerated Stand Alone Forms: Patient Portal Discharge page Print Language: Unable To Collect Care Plan Goals: Prevent aspiration Health Concerns: Aspiration pneumonia Plan of Treatment: 5 more days of Augmentin, continue pureed solids with nectar thick liquids, aspiration precautions Assessment: See above
[2024-07-13] MEDS: Enoxaparin Sodium 40 MG/0.4 ML SYRINGE SUBCUT (09:16)
[2024-07-13] MEDS: Sacubitril/Valsartan 24/26 1 TAB TABLET PO (09:17)
[2024-07-13] MEDS: Furosemide 40 MG TABLET PO (09:17)
[2024-07-13] MEDS: Amiodarone HCL 200 MG TABLET PO (09:17)
[2024-07-13] MEDS: Aspirin Enteric Coated 81 MG TABLET.DR PO (09:17)
[2024-07-13] MEDS: Divalproex Sodium Sprinkles 125 MG CAP.DR.SPR 875 MG PO (09:17)
[2024-07-13] MEDS: Lactulose 20 GM/30 ML SOLUTION PO (09:18)
[2024-07-13] MEDS: Bicalutamide 50 MG TABLET PO (09:18)
[2024-07-13] MEDS: carvediloL 3.125 MG TABLET PO (09:18)
[2024-07-13] MEDS: 0.9 % Sodium Chloride Flush 3 ML SYRINGE IVFLUSH (09:18)
--- NOTE | 2024-07-13 10:28 | MHC.SL.SWA ---
Speech Pathologist Impression: Mild to moderate oral phase dysphagia d/t missing dentition and frequent oromotor movements of lips, tongue and jaw. Pharyngeal swallow mildly delayed/weak; pt has hx of esophageal reflux (frequent burping s/p swallow). Risk of Aspiration Due to: Neurological Condition History of Pneumonia Reduced Cognition Dysphasia Diet Status: Patient is a LTC resident of [facility] w/ hx significant for prior PNA, COPD, CHF, epilepsy, dementia, schizophrenia, dysphagia, and GERD. Liquid Consistency and Strategies for Safe Swallow: Liquid Intake Recommendation: [place] Thick Liquid Intake Strategies: Small Sips Solid Food Consistency: Dietary Recommendations: Pureed (NDD1) Additional Modifications to Solid Foods: Oral Medication Intake: Crushed with Puree Please contact the pharmacy regarding appropriate crushable or liquid drug formulations that are available whenever modified delivery is recommended. Compensatory Strategies and Precautions to be Taken for Safe Swallow: Sitting Upright (90 deg) Liquids from Cup Liquids from Straw Small Bites and Sips Rate of Ingestion Change Oral Check Supervision While Eating and Drinking for Safe Swallow: Total Assistance (1:1) Foods to Avoid: Mixed consistencies, difficult to chew solids. Swallowing Recommended Treatments: Compens. Strategy Educat. Recommendation for Speech: Inpatient Speech Therapy Comment: Pt seen for dysphagia treatment, RN and CNAs consulted, report pt is tolerating current diet without concern. Pt sitting upright in bed, alert, pleasant, using pen to draw shapes on paper. Pt is edentulous; oromotor functioning characterized by tongue fronting, jaw depression, labial rounding and secondary facial muscle movements of cheeks, eyes and forehead. Pt is able to control volitional movements for PO and motor speech. Pt is verbal but severely dysarthric, though he uses singing and laughter as method to communicate. Pt requested 'aqua', trials of thin water provided. Pt tolerated sips of cold water with good oropharyngeal coordination, no overt s/s of aspiration; however, pt is impulsive and takes large sips, which may increase risk for aspiration. Pt tolerated purees by 1/2 tsps and NTL by straw sips with adequate oropharyngeal coordination. Voicing absent of wetness, no residual material visualized in oral cavity. RESAWYER elevation WNL. Pt can feed himself but benefits from 1:1 assist. Recc diet as ordered, PRECISION LATHE OPERATOR to monitor tolerance as indicated. Frequency/Duration: M-F Date Range for Service Req: Timeline to reassess: Dust Puller Clinican/Clinical Fellow: No Supervisory Statement: I have reviewed and agree with the student/clinical fellow's documentation: N/A Speech Language Pathologist: Alee Portillo M.S., [facility]-PRECISION LATHE OPERATOR
[2024-07-13 10:59] VITALS: BP 132/73; PULSE 83; RESP 18; TEMP 36.7; O2SAT 96
[2024-07-13 11:36] LABS: Glucose, Whole Blood 132 mg/dL (60-115)
--- NOTE | 2024-07-13 11:41 | MHC.CM.PN ---
PT CLEARED TO DC BACK TO [facility] BLS TRANSPORT BOOKED WITH [facility] FOR 1300 HOURS LEGAL GUARDIAN, VALARIE VALDEZ [phone], NOTIFIED VIA T/C MEDICARE RIGHTS FAXED TO GUARDIAN AT [phone]
[2024-07-15 20:38] LABS: TS Negative Control Passed; TS Panel A 3; TS Panel B 1; TS Positive Control Passed; TSpotTB Negative (Negative)
== END 2024-07-13 12:44 | disposition intermediate care facility (04) | DRG 177 ==
LOC: HO.ED 07-10 03:10 → HO.EDOVER 07-10 04:06 → HO.IMC 07-10 07:06
PROVIDERS: Admitting Provider Physician Assistant; Emergency Provider Emergency Medicine; PCP Hospitalist; Visit Provider Internal Medicine
DX: J69.0 Pneumonitis due to inhalation of food and vomit (principal); G93.41 Metabolic encephalopathy; J96.22 Acute and chronic respiratory failure with hypercapnia; J96.21 Acute and chronic respiratory failure with hypoxia; I50.22 Chronic systolic (congestive) heart failure; J91.8 Pleural effusion in other conditions classified elsewhere; E11.9 Type 2 diabetes mellitus without complications; D64.9 Anemia, unspecified; G40.909 Epilepsy, unspecified, not intractable, without status epilepticus; F03.90 Unspecified dementia, unspecified severity, without behavioral disturbance, psychotic disturbance, mood disturbance, and anxiety; Z20.822 Contact with and (suspected) exposure to COVID-19; Z79.82 Long term (current) use of aspirin; Z79.890 Hormone replacement therapy; Z79.899 Other long term (current) drug therapy
CPT/HCPCS: 0241U; 36415; 70450; 71045; 71250; 80048; 80202; 80307; 81001; 82803; 82947; 83605; 83880; 84484; 85025; 86481; 87040; 87640; 87641; 92526; 92610; 93005; 93306; 99285; J0456; J0696; J1650; J2543; J3370; Q9957

== ENCOUNTER → 2024-07-09 21:16 | Outpatient (BNV) | payer MEDICARE, MEDICAID, SELFPAY | PROVIDERS: Emergency Provider Emergency Medicine; PCP Hospitalist; Visit Provider Radiology Diagnostic Radiology | DX: J90 Pleural effusion, not elsewhere classified (principal); R91.8 Other nonspecific abnormal finding of lung field | CPT/HCPCS: 71045 ==

== ENCOUNTER → 2024-07-09 21:38 | Outpatient (BNV) | payer MEDICARE, MEDICAID, SELFPAY | PROVIDERS: Admitting Provider Physician Assistant; Emergency Provider Emergency Medicine; PCP Hospitalist; Visit Provider Internal Medicine Cardiovascular Disease | DX: I45.10 Unspecified right bundle-branch block (principal) | CPT/HCPCS: 93010 ==

== ENCOUNTER 2024-07-10 03:51 | Outpatient (BNV) | payer MEDICARE, MEDICAID, SELFPAY | END 2024-07-11 20:43 | PROVIDERS: Admitting Provider Physician Assistant; Emergency Provider Emergency Medicine; PCP Hospitalist; Visit Provider Radiology Diagnostic Radiology | DX: I67.82 Cerebral ischemia (principal); R60.0 Localized edema | CPT/HCPCS: 70450 ==

== ENCOUNTER 2024-07-10 03:51 | Outpatient (BNV) | payer MEDICARE, MEDICAID, SELFPAY | END 2024-07-10 07:00 | PROVIDERS: Admitting Provider Physician Assistant; Emergency Provider Emergency Medicine; PCP Hospitalist; Visit Provider Internal Medicine Cardiovascular Disease | DX: R94.31 Abnormal electrocardiogram [ECG] [EKG] (principal) | CPT/HCPCS: 93306 ==

== ENCOUNTER 2024-07-10 03:51 | Outpatient (BNV) | payer MEDICARE, MEDICAID, SELFPAY | END 2024-07-10 10:31 | PROVIDERS: Admitting Provider Physician Assistant; Emergency Provider Emergency Medicine; PCP Hospitalist; Visit Provider Radiology Diagnostic Radiology | DX: J18.9 Pneumonia, unspecified organism (principal); J98.11 Atelectasis; I25.10 Atherosclerotic heart disease of native coronary artery without angina pectoris | CPT/HCPCS: 71250 ==

== ENCOUNTER → 2024-07-10 03:51 | Outpatient (BNV) | payer MEDICARE, MEDICAID, SELFPAY | PROVIDERS: Admitting Provider Physician Assistant; Emergency Provider Emergency Medicine; PCP Hospitalist; Visit Provider Internal Medicine | DX: J96.21 Acute and chronic respiratory failure with hypoxia (principal); J96.22 Acute and chronic respiratory failure with hypercapnia; J18.9 Pneumonia, unspecified organism | CPT/HCPCS: 99222 ==

== ENCOUNTER → 2024-07-10 03:51 | Outpatient (BNV) | payer MEDICARE, MEDICAID, SELFPAY | PROVIDERS: Admitting Provider Physician Assistant; Emergency Provider Emergency Medicine; PCP Hospitalist; Visit Provider Internal Medicine | DX: J96.21 Acute and chronic respiratory failure with hypoxia (principal); J96.22 Acute and chronic respiratory failure with hypercapnia; J18.9 Pneumonia, unspecified organism; J90 Pleural effusion, not elsewhere classified; G93.41 Metabolic encephalopathy; D64.9 Anemia, unspecified | CPT/HCPCS: 99223; 99232; 99499 ==